=== PATIENT | female | born 2000 | race Caucasian/White ===

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

== ENCOUNTER 2020-01-02 11:51 | Observation (INO) | payer MEDICAID, SELFPAY ==
[2020-01-02 12:10] VITALS: BP 103/62; PULSE 85; RESP 18; TEMP 36.8
[2020-01-02 12:13] VITALS: BP 103/62; PULSE 85
[2020-01-02 12:52] LABS: ROM Plus Negative
== END 2020-01-02 13:05 | disposition home or self-care (01) ==
PROVIDERS: Admitting Provider Advanced Practice Midwife; Visit Provider Advanced Practice Midwife
DX: O60.02 Preterm labor without delivery, second trimester (principal); Z3A.24 24 weeks gestation of pregnancy
CPT/HCPCS: 84112; G0378

== ENCOUNTER 2020-01-11 20:43 | Observation (INO) | payer MEDICAID, SELFPAY ==
[2020-01-11 20:46] VITALS: BP 106/66; PULSE 100; RESP 17; TEMP 36.8
[2020-01-11] MEDS: Acetaminophen 500 MG TAB 1000 MG PO (20:59)
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
--- NOTE | 2020-01-12 08:49 | DSE_ITS ---
Date of service: 01/11/20 Time of Service: 22:00 DS: Diagnosis Discharge Diagnosis (1) Decreased movement: Status: Acute Asessment and Plan: Fetus was active. Lawanda took tylenol for headache with good effect. She requested to return home and she requested a note to be excused from work tomorrow and that was written. RTO for regular prnatal visit. movement was reviewed. Rest tomorrow was encouraged Discharge Plan Disposition Patient Disposition: HOME Condition: Stable Discharge Details Reason For Visit: ABDOMINAL TRAUMA Admit Date/Time: 01/11/20 20:43 Admit Provider: Luz Marina Fitzpatrick Attending Provider: Luz Marina Fitzpatrick Primary Care Provider: Unknown,Unknown Home Meds and New Rx's Prescriptions: No Action albuterol sulfate [ProAir HFA] 90 mcg/actuation HFA aerosol inhaler 2 puff Inhalation ONCE PRNRF: 0 fluoxetine 10 mg capsule 10 mg PO DAILY Qty: 30 RF: 1 PreTAB 29-1 mg tablet 1 tab PO DAILY Qty: 90 RF: 4 epinephrine [EpiPen 2-Sesar] 0.3 MG/0.3 ML auto-injector 0.3 mg IJ DIRECTED PRN (Reason: impending anaphylaxis) Qty: 1 RF: 0 Discharge Instructions Instructions: (GEN), Movement (GEN) Stand Alone Forms: Center Observation Activity:: rest encouraged Equipment/Supplies:: No Equipment Needed Diet:: As Tolerated Discharge Orders Discharge Orders: Discharge Order (Routine); Ordered 01/11/20 Ordered By: Luz Marina Fitzpatrick Discharge Data Discharge Date/Time-TO BE ENTERED AT DEPARTURE: 01/11/20 22:48 DS: Summary Status at Discharge Functional status at discharge: independent ambulation Overall status at discharge: patient is back to baseline Mental Status: mental status grossly normal Speech and Movement: speech and movement normal Mood: congruent mood Affect: normal affect Time Spent with Patient providing and/or coordinating discharge services: Less than 30 minutes Exam Psych Mental Status: mental status grossly normal Speech and Movement: speech and movement normal Mood: congruent mood Affect: normal affect DS: Data Vitals/I&O Vitals and I&O: Vital Signs Temperature 98.2 F 01/11/20 20:46 Pulse 100 H 01/11/20 20:46 Respiratory Rate 17 01/11/20 20:46 Blood Pressure 106/66 01/11/20 20:46 Blood Pressure Mean 79 01/11/20 20:46 Pain Level 5 01/11/20 20:46 [facility] Medical History (Updated 01/11/20 @ 21:34 by Luz Marina Fitzpatrick CNM) Abdominal pain Acute bronchiolitis due to respiratory syncytial virus (RSV) (03/24/12) ADHD (attention deficit hyperactivity disorder) Anaphylactic reaction 2017 - lip swelling, face swelling ER - allergy testing no trigger identified - has epi pen Body mass index, pediatric, 85th percentile to less than 95th percentile for age (03/29/14) Concern about STD in female without diagnosis Daytime sleepiness Depression Encounter for IUD removal Kyleena IUD inserted 06/14/2019. Removed 07/15/2019 at patient's request secondary to bleeding and stated desire to become . Patient declined alternative contraception. Encounter for smoking cessation counseling Exercise-induced asthma Family history of thyroid disease Lactose intolerance (10/25/15) Learning difficulty 504 plan Nasal congestion Patient desires 07/15/2019. Patient requested IUD to be removed. Rx for vitamins initiated. Smoker quit 10/04/19 URI (upper respiratory infection) Surgical History History of appendectomy [facility] 10/20/18 Family History Mother Essential hypertension Healthy adult Hypothyroid Father Healthy adult Asthma Other Personal history of malignant neoplasm paternal aunts-breast, maternal Asthma mat uncle, mat aunt, MGM Sister Asthma Social History Smoking/Tobacco Use Status: Current every day Tobacco Type: e-cigarettes Alcohol Intake: former Details: says she has stopped since she might be Drug use: Occasionally Substance use type: former substance user and marijuana Do you feel safe at home: Yes Do you feel safe in your relationship?: Yes Victim of physical abuse: No Victim of emotional abuse: No Victim of sexual abuse: No Female Reproductive History Menstrual Age of Menarche: 11 control method: none History History 1 Para 0 Hx # Term Pregnancies 0 Multiple births Hx # Pregnancies Ectopic pregnancies AB induced Hx Number of Living Children AB spontaneous
== END 2020-01-11 22:48 | disposition home or self-care (01) ==
LOC: OBS 20:46
PROVIDERS: Admitting Provider Advanced Practice Midwife; Visit Provider Advanced Practice Midwife
DX: Z04.3 Encounter for examination and observation following other accident (principal); O36.8120 Decreased fetal movements, second trimester, not applicable or unspecified; O26.892 Other specified pregnancy related conditions, second trimester; R51 Headache; Z3A.25 25 weeks gestation of pregnancy
CPT/HCPCS: 99217; 59025

== ENCOUNTER 2020-01-26 08:29 | Observation (INO) | payer MEDICAID, SELFPAY ==
[2020-01-26 08:34] VITALS: BP 106/62; PULSE 86; RESP 16; TEMP 36.4; O2SAT 99
--- NOTE | 2020-01-26 09:07 | W.ED.GENAD ---
Discharge Plan Disposition Patient Disposition: [facility] INPATIENT Condition: Stable Discharge Details Clinical Impression: Cervical strain, Contusion of right hip Primary Care Provider: Unknown,Unknown ED Provider: Kristofer Hartley Home Meds and New Rx's Prescriptions: Continued albuterol sulfate [ProAir HFA] 90 mcg/actuation HFA aerosol inhaler 2 puff Inhalation ONCE PRNRF: 0 fluoxetine 10 mg capsule 10 mg PO DAILY Qty: 30 RF: 1 PreTAB 29-1 mg tablet 1 tab PO DAILY Qty: 90 RF: 4 epinephrine [EpiPen 2-Sesar] 0.3 MG/0.3 ML auto-injector 0.3 mg IJ DIRECTED PRN (Reason: impending anaphylaxis) Qty: 1 RF: 0 Medical Decision Making 19-year-old female who has prestanding right hip pain causing her to fall and slip down stairs on her bottom once previously and again this morning. This morning she did not have a loss of consciousness. Subsidy has some mild to moderate neck pain. She has persistent right hip pain over days time. She is able to walk. No new vaginal discharge and no vaginal bleeding. She has been feeling the baby move. heart tones were unremarkable at triage. Case discussed with our radiologist, Dr. Mendenhall. He feels focal pelvic radiation represents at least a moderate risk to the fetus and would recommend withholding radiography unless absolutely necessary. I discussed this with the patient, she was given acetaminophen, referred for cervical spine x-ray. No evidence of fracture or malalignment. Use single crutch as needed use weight. We discussed that she does have a subtle pelvis fracture that weightbearing as tolerated would not be contraindicated. Case discussed with midwifery. Patient be discharged from ER to [facility] for further observation. HPI General Mode of arrival: ambulatory. Date/Time Provider Initiated Documentation: 01/26/20 08:31. Limitations to Documentation: no limitations. Information obtained by: patient. History of Present Illness 19 year old F presents to the emergency department with the chief complaint of Right hip pain, fall, now with neck pain, described as moderate, Quality is described as dull, and is localized to the neck. Patient reports no radiation. Patient started experiencing this minute(s) and it has been constant. No relieving factors improve symptom(s), No exacerbating factors reported . Patient notes no other symptoms. and other (No numbness or tingling, no weakness, no vaginal discharge or bleeding. Baby has been moving.). Patient did receive the following treatments prior to arrival, none Related Data Home Medications Medication Instructions Recorded Confirmed epinephrine [EpiPen 2-Sesar] 0.3 mg IJ DIRECTED PRN #1 10/14/17 01/02/20 auto.injct albuterol sulfate 90 mcg/actuation 2 puff INHALATION ONCE PRN gm 10/06/19 01/02/20 aerosol inhaler fluoxetine 10 mg capsule 10 mg PO DAILY #30 cap 10/06/19 01/02/20 vits,calcium no.78-iron 1 tab PO DAILY #90 tab 10/08/19 01/02/20 fumarate-folic acid 29 mg-1 mg tablet Previous Rx's Medication Instructions Recorded epinephrine [EpiPen 2-Sesar] 0.3 mg IJ DIRECTED PRN #1 10/14/17 auto.injct fluoxetine 10 mg capsule 10 mg PO DAILY #30 cap 10/06/19 vits,calcium no.78-iron 1 tab PO DAILY #90 tab 10/08/19 fumarate-folic acid 29 mg-1 mg tablet Allergies Allergy/AdvReac Type Severity Reaction Status Date / Time dog dander Allergy Severe Verified 12/30/19 15:05 house dust mite Allergy Severe Verified 12/30/19 15:05 General Stated Complaint: Trauma CLARKE: 3 Review of Systems Narrative: 6 systems reviewed and otherwise negative [facility] Medical History (Updated 01/26/20 @ 10:26 by Kristofer Hartley MD) Abdominal pain Acute bronchiolitis due to respiratory syncytial virus (RSV) (03/24/12) ADHD (attention deficit hyperactivity disorder) Anaphylactic reaction 2017 - lip swelling, face swelling ER - allergy testing no trigger identified - has epi pen Body mass index, pediatric, 85th percentile to less than 95th percentile for age (03/29/14) Concern about STD in female without diagnosis Daytime sleepiness Depression Encounter for IUD removal Kyleena IUD inserted 06/14/2019. Removed 07/15/2019 at patient's request secondary to bleeding and stated desire to become . Patient declined alternative contraception. Encounter for smoking cessation counseling Exercise-induced asthma Family history of thyroid disease Lactose intolerance (10/25/15) Learning difficulty 504 plan Nasal congestion Patient desires 07/15/2019. Patient requested IUD to be removed. Rx for vitamins initiated. Smoker quit 10/04/19 URI (upper respiratory infection) Surgical History History of appendectomy [facility] 10/20/18 Family History Mother Essential hypertension Healthy adult Hypothyroid Father Healthy adult Asthma Other Personal history of malignant neoplasm paternal aunts-breast, maternal Asthma mat uncle, mat aunt, MGM Sister Asthma Social History Smoking/Tobacco Use Status: Current every day Tobacco Type: e-cigarettes Alcohol Intake: former Details: says she has stopped since she might be Drug use: Occasionally Substance use type: former substance user and marijuana Do you feel safe at home: Yes Do you feel safe in your relationship?: Yes Victim of physical abuse: No Victim of emotional abuse: No Victim of sexual abuse: No Female Reproductive History Menstrual Age of Menarche: 11 control method: none History History 1 Para 0 Hx # Term Pregnancies 0 Multiple births Hx # Pregnancies Ectopic pregnancies AB induced Hx Number of Living Children AB spontaneous Exam Narrative Exam Narrative: GEN: awake, alert, oriented 3. Pleasant, well groomed, interactive. HEAD: Normocephalic, atraumatic ENT: Mucous membranes moist, oropharynx unremarkable, External ear exam unremarkable EYES: PERRL, EOMI NECK: Full ROM, no JEANIE, no menigismus. Tender posterior cervical, no step-off or deformity CHEST/RESP: Nontender, clear to auscultation bilateral, no wheeze/rhonchi/rales CARDIOVASCULAR: RRR, no murmur, rub radha. 2+ Rad pulse bilateral ABDOMEN: Soft, nontender, gravid. +Bowel sounds EXT: Full ROM, no edema, no rash. Right lateral hip and right anterior superior iliac spine tender to palpation. Motor is graded 5 out of 5. Neuro: Grossly normal neurologic exam, conversant, interactive. Psych: Speech fluent, thoughts congruent, affect normal Course Vital Signs Vital signs: Vital Signs Temperature 36.4 C L 01/26/20 08:34 Pulse 86 01/26/20 08:34 Respiratory Rate 16 01/26/20 08:34 Blood Pressure 106/62 01/26/20 08:34 Pulse Oximetry 99 01/26/20 08:34 Temperature 36.4 C L 01/26/20 08:34 Temperature Source Tympanic 01/26/20 08:34 Pulse 86 01/26/20 08:34 Respiratory Rate 16 01/26/20 08:34 Respiratory Effort Non-Labored 01/26/20 08:39 Blood Pressure 106/62 01/26/20 08:34 Blood Pressure Position Sitting 01/26/20 08:34 Pulse Oximetry 99 01/26/20 08:34 Oxygen Delivery Method Room Air 01/26/20 08:34 Oxygen Flow Rate 0 01/26/20 08:34 Pain Level 7 01/26/20 08:34
[2020-01-26] MEDS: Acetaminophen 325 MG TAB 650 MG PO (09:24)
--- NOTE | 2020-01-26 09:52 | DI.RAD_ITS ---
EXAM: XR CERVICAL SP MAHMOOD TRAUMA 2-3V CLINICAL HISTORY: Fall, Cspine pain, 27wks preg. TECHNIQUE: 2D digital imaging was performed. COMPARISON: No exams were available for comparison FINDINGS: BONES: No fracture or destructive lesion. Vertebral bodies are unremarkable. DISKS: Intervertebral disc spaces are maintained. ALIGNMENT: Cervical spinal alignment is within normal limits. The odontoid and atlantoaxial articulat ions are normal. SOFT TISSUE: Normal. The lung apices are clear. IMPRESSION: Unremarkable radiographs of the cervical spine. DATA REPOSITORY: RADIATION DOSE DELIVERED:
[2020-01-26 09:55] LABS: Bilirubin Negative (Negative); Blood Negative (Negative); Clarity Clear (Clear); Glucose Negative (Negative); Ketones Negative (Negative); Leukocyte Esterase Negative (Negative); Nitrite Negative (Negative); Urobilinogen 0.2 EU/dL (Up TO 0.2)
[2020-01-26 10:00] VITALS: BP 102/72; PULSE 102; RESP 18; TEMP 36.2; O2SAT 96
[2020-01-26 10:32] VITALS: BP 101/74; PULSE 90; RESP 16; TEMP 36.6; O2SAT 97
--- NOTE | 2020-01-26 11:25 | W.PM.HP.N ---
Date of service: 01/26/20 Time of Service: 11:25 Assessment and Plan Assessment and plan (1) Fall (on) (from) other stairs and steps, initial encounter: Status: Acute Assessment and plan: Admitted to observation and placed on external and toco monitoring. FHTs 130s. Reactive NST on admission. Average variablility and no decellerations. Occasional mild uterine cramping noted. I recommended 4 hours of monitoring due to reported abdominal cramping. I also discussed referral to PT after discharge which Lawanda is agreeable to this. (2) 27 weeks gestation of : Status: Acute History of Present Illness History of Present Illness Chief Complaint: Lawanda fell down stairs at 27 weeks gestation Narrative: Lawanda fell down wooden stairs in her home wearing socks. She is 27 weeks gestation. . She reports that her right hip has been giving out on her occasionally causing her to fall. She fell a few days ago, also on the stairs and her hip has been hurting since then. She drove herself to the hospital and was evaluated in the ED and had a neg neck x-ray. She was able to walk in the ED and was given crutches upon discharge. A hip x-ray was not indicated based on her symptoms. She requests a note for work as she started a new job at [employer] today. Lawanda reports uterine cramping which began occurring after the fall. FHTs pos. in the ED and report received by Dr. Hartley in the ED. [facility] Medical History (Updated 01/26/20 @ 11:34 by Luz Marina Fitzpatrick CNM) Abdominal pain Acute bronchiolitis due to respiratory syncytial virus (RSV) (03/24/12) ADHD (attention deficit hyperactivity disorder) Anaphylactic reaction 2017 - lip swelling, face swelling ER - allergy testing no trigger identified - has epi pen Body mass index, pediatric, 85th percentile to less than 95th percentile for age (03/29/14) Concern about STD in female without diagnosis Daytime sleepiness Depression Encounter for IUD removal Kyleena IUD inserted 06/14/2019. Removed 07/15/2019 at patient's request secondary to bleeding and stated desire to become . Patient declined alternative contraception. Encounter for smoking cessation counseling Exercise-induced asthma Family history of thyroid disease Lactose intolerance (10/25/15) Learning difficulty 504 plan Nasal congestion Patient desires 07/15/2019. Patient requested IUD to be removed. Rx for vitamins initiated. Smoker quit 10/04/19 URI (upper respiratory infection) Surgical History History of appendectomy [facility] 10/20/18 Family History Mother Essential hypertension Healthy adult Hypothyroid Father Healthy adult Asthma Other Personal history of malignant neoplasm paternal aunts-breast, maternal Asthma mat uncle, mat aunt, MGM Sister Asthma Social History Smoking/Tobacco Use Status: Current every day Tobacco Type: e-cigarettes Alcohol Intake: former Details: says she has stopped since she might be Drug use: Occasionally Substance use type: former substance user and marijuana Do you feel safe at home: Yes Do you feel safe in your relationship?: Yes Victim of physical abuse: No Victim of emotional abuse: No Victim of sexual abuse: No Female Reproductive History Menstrual Age of Menarche: 11 control method: none History History 1 Para 0 Hx # Term Pregnancies 0 Multiple births Hx # Pregnancies Ectopic pregnancies AB induced Hx Number of Living Children AB spontaneous Meds Home Medications and Allergies Home Medications Medication Instructions Recorded Confirmed Type epinephrine [EpiPen 2-Sesar] 0.3 mg IJ DIRECTED PRN #1 10/14/17 01/02/20 Rx auto.injct albuterol sulfate 90 mcg/actuation 2 puff INHALATION ONCE PRN gm 10/06/19 01/02/20 History aerosol inhaler fluoxetine 10 mg capsule 10 mg PO DAILY #30 cap 10/06/19 01/02/20 Rx vits,calcium no.78-iron 1 tab PO DAILY #90 tab 10/08/19 01/02/20 Rx fumarate-folic acid 29 mg-1 mg tablet Allergies Allergy/AdvReac Type Severity Reaction Status Date / Time dog dander Allergy Severe Verified 12/30/19 15:05 house dust mite Allergy Severe Verified 12/30/19 15:05 Exam Const General: comfortable and no acute distress Nutritional Appearance: average body habitus Orientation: alert, awake and oriented x3 Resp Effort & Inspection: normal respiratory effort Cardio Rate: regular rate Rhythm: regular rhythm Skin General skin exam: no rashes or lesions noted Psych Appearance: grossly normal Mental Status: mental status grossly normal Speech and Movement: speech and movement normal Mood: congruent mood Affect: normal affect Attitude: cooperative Results Labs Labs: Laboratory Results - last 24 hr 01/26/20 08:57 Urine Color Yellow Urine Clarity Clear Urine pH 7.0 Ur Specific [place] 1.020 Urine Protein Negative Urine Ketones Negative Urine Blood Negative Urine Nitrite Negative Urine Bilirubin Negative Urine Urobilinogen 0.2 Ur Leukocyte Esterase Negative Urine Glucose Negative Last Vital Signs Temp 97.9 F 01/26/20 10:32 Pulse 90 01/26/20 10:32 Resp 16 01/26/20 10:32 BP 101/74 01/26/20 10:32 Pulse Ox 97 01/26/20 10:32 COVID-19 Screening Have you,or household,traveled outside [place] in last 14 days?: No Had IN PERSON contact w/suspected or confirmed C-19 person: No
[2020-01-26 12:26] VITALS: BP 107/63; PULSE 91
--- NOTE | 2020-01-26 12:30 | W.OBNST ---
Date of service: 01/26/20 Time of Service: 12:30 NST Evaluation Reason for NST Reasons for Nonstress Test: OTHER, SEE COMMENT Gestational Age Gestational Age in Weeks and Days: 24 Weeks and 0Days
[2020-01-26 12:33] VITALS: BP 107/63; PULSE 91; TEMP 36.7
--- NOTE | 2020-01-26 12:47 | W.OBNST ---
Date of service: 01/26/20 Time of Service: 12:47 NST Evaluation Reason for NST Reasons for Nonstress Test: OTHER, SEE COMMENT Reason for NST Other: Pt fell down her stairs, seen in ER, hector rush on [facility] Gestational Age Gestational Age in Weeks and Days: 27 Weeks and 3Days Test and Monitor Explained Test/Monitor Explained: Test Explained, Monitor Explained and Patient Verbalized Understanding Vital Signs Blood Pressure: 107/63 Pulse: 91 Temperature: 98.1 F Urine Results Urine Protein: Negative Urine Ketones: Negative Urine Glucose: Negative Urine Blood: Negative NST Information Date on Monitor: 01/26/20 Time on Monitor: 10:52 Date off Monitor: 01/26/20 Time off Monitor: 12:37 Total Time on Monitor: 105 NST Interventions: PO Hydration and Meal Given Contraction Frequency: none NST Evaluation Patient States Movement: Present FHR Baseline: 130 Variability: Moderate 6-25 bpm Accelerations: 10x10 Decelerations: None NST Results: Reactive Note NST Note Note: admitted to observation x 4 hours after fall. see h and p NST Reviewed and Verified by: meaghan
[2020-01-26 12:48] VITALS: BP 107/63; PULSE 91; TEMP 36.7
--- NOTE | 2020-01-26 15:08 | DSE_ITS ---
Date of service: 01/26/20 Time of Service: 15:08 DS: Diagnosis Discharge Diagnosis (1) Fall (on) (from) other stairs and steps, initial encounter: Status: Acute Asessment and Plan: Lawanda rested x 4 hours and had lunch. She reported cramping when she arrived but no evidence of labor. Reactive NST obtained. Note written to avoid work x 2 days. Referred to PT, Call if symptoms persist. Rest at home x 2 days. Use crutches as needed. (2) 27 weeks gestation of : Status: Acute Discharge Plan Disposition Patient Disposition: HOME Condition: Stable Discharge Details Reason For Visit: FALL DOWN STAIRS Admit Date/Time: 01/26/20 11:22 Admit Provider: Luz Marina Fitzpatrick Attending Provider: Luz Marina Fitzpatrick Primary Care Provider: Unknown,Unknown Home Meds and New Rx's Prescriptions: Continued albuterol sulfate [ProAir HFA] 90 mcg/actuation HFA aerosol inhaler 2 puff Inhalation ONCE PRNRF: 0 fluoxetine 10 mg capsule 10 mg PO DAILY Qty: 30 RF: 1 PreTAB 29-1 mg tablet 1 tab PO DAILY Qty: 90 RF: 4 epinephrine [EpiPen 2-Sesar] 0.3 MG/0.3 ML auto-injector 0.3 mg IJ DIRECTED PRN (Reason: impending anaphylaxis) Qty: 1 RF: 0 Discharge Instructions Instructions: Cervical Strain (ED), Contusion in Adults (ED) Additional Instructions: Please go directly to [facility] for further evaluation. May continue Tylenol as needed for pain. Ice to the area of discomfort 20 minutes at a time to reduce pain. May use single crutch as needed to ease weight on your right hip Return to the emergency department for any acute concerns. Activity:: Activity as Tolerated Equipment/Supplies:: Crutches Diet:: As Tolerated Discharge Orders Discharge Orders: Discharge Order (Routine); Ordered 01/26/20 Ordered By: Luz Marina Fitzpatrick DS: Summary Status at Discharge Functional status at discharge: independent ambulation Overall status at discharge: patient is back to baseline Mental Status: mental status grossly normal Speech and Movement: speech and movement normal Mood: congruent mood Affect: normal affect Time Spent with Patient providing and/or coordinating discharge services: Less than 30 minutes Exam Psych Mental Status: mental status grossly normal Speech and Movement: speech and movement normal Mood: congruent mood Affect: normal affect DS: Data Vitals/I&O Vitals and I&O: Vital Signs Temperature 97.9 F 01/26/20 10:32 Temperature Source Temporal Artery Scan 01/26/20 10:32 Pulse 91 H 01/26/20 12:26 Respiratory Rate 16 01/26/20 10:32 Respiratory Effort Non-Labored 01/26/20 09:34 Respiratory Depth Normal 01/26/20 09:34 Respiratory Pattern Normal 01/26/20 09:34 Blood Pressure 107/63 01/26/20 12:26 Blood Pressure Position Sitting 01/26/20 08:34 Pulse Oximetry 97 01/26/20 10:32 Oxygen Delivery Method Room Air 01/26/20 10:32 Oxygen Flow Rate 0 01/26/20 10:32 Pain Level 7 01/26/20 08:34 Intake & Output 01/25/20 01/26/20 01/26/20 23:59 11:59 23:59 Weight 147 lb Data Completed and Pending Labs on day of discharge: Labs from last 24 hours 01/26/20 08:57 Urine Color Yellow Urine Clarity Clear Urine pH 7.0 Ur Specific [place] 1.020 Urine Protein Negative Urine Ketones Negative Urine Blood Negative Urine Nitrite Negative Urine Bilirubin Negative Urine Urobilinogen 0.2 Ur Leukocyte Esterase Negative Urine Glucose Negative [facility] Medical History (Updated 01/26/20 @ 12:13 by Luz Marina Fitzpatrick CNM) Abdominal pain Acute bronchiolitis due to respiratory syncytial virus (RSV) (03/24/12) ADHD (attention deficit hyperactivity disorder) Anaphylactic reaction 2017 - lip swelling, face swelling ER - allergy testing no trigger identified - has epi pen Body mass index, pediatric, 85th percentile to less than 95th percentile for age (03/29/14) Concern about STD in female without diagnosis Daytime sleepiness Depression Encounter for IUD removal Kyleena IUD inserted 06/14/2019. Removed 07/15/2019 at patient's request secondary to bleeding and stated desire to become . Patient declined alternative contraception. Encounter for smoking cessation counseling Exercise-induced asthma Family history of thyroid disease Lactose intolerance (10/25/15) Learning difficulty 504 plan Nasal congestion Patient desires 07/15/2019. Patient requested IUD to be removed. Rx for vitamins initiated. Smoker quit 10/04/19 URI (upper respiratory infection) Surgical History History of appendectomy [facility] 10/20/18 Family History Mother Essential hypertension Healthy adult Hypothyroid Father Healthy adult Asthma Other Personal history of malignant neoplasm paternal aunts-breast, maternal Asthma mat uncle, mat aunt, MGM Sister Asthma Social History Smoking/Tobacco Use Status: Current every day Tobacco Type: e-cigarettes Alcohol Intake: former Details: says she has stopped since she might be Drug use: Occasionally Substance use type: former substance user and marijuana Do you feel safe at home: Yes Do you feel safe in your relationship?: Yes Victim of physical abuse: No Victim of emotional abuse: No Victim of sexual abuse: No Female Reproductive History Menstrual Age of Menarche: 11 control method: none History History 1 Para 0 Hx # Term Pregnancies 0 Multiple births Hx # Pregnancies Ectopic pregnancies AB induced Hx Number of Living Children AB spontaneous
== END 2020-01-26 15:18 | disposition home or self-care (01) ==
LOC: ER 11:42 → OBS 12:12
PROVIDERS: Admitting Provider Advanced Practice Midwife; Emergency Provider Emergency Medicine; Visit Provider Advanced Practice Midwife
DX: O9A.212 Injury, poisoning and certain other consequences of external causes complicating pregnancy, second trimester (principal); S70.01XA Contusion of right hip, initial encounter; S16.1XXA Strain of muscle, fascia and tendon at neck level, initial encounter; M25.551 Pain in right hip; Z3A.27 27 weeks gestation of pregnancy; W10.8XXA Fall (on) (from) other stairs and steps, initial encounter
CPT/HCPCS: 59025; 99223; 99238; 99285; 72040; 81003; 99284; E0114; G0378; L0172

== ENCOUNTER 2020-01-28 04:43 | Outpatient (CLI) | payer MEDICAID, SELFPAY ==
--- NOTE | 2020-01-28 07:14 | DI.US_ITS ---
EXAM: US OB F/U FACIAL/LVOT/RVOT CLINICAL HISTORY: F/U LOW LYING PLACENTA,Z34.90,MODIFIED PER TECH. TECHNIQUE: Transabdominal obstetrical ultrasound performed. COMPARISON: US US OB 2-3 TRIMESTER from 12/01/2019 FINDINGS: Transabdominal obstetrical ultrasound performed. FINDINGS: Number of fetuses: One. position: Cephalic Placental location: Anterior. There is no evidence of previa. The placental tip lies greater than 6 cm from the internal os. Heart Rate: 137BPM Amniotic fluid index: Visually, amount of fluid is within normal limits. IMPRESSION: 1. Single live intrauterine gestation as above. 2. No evidence of placenta previa. The placental tip lies greater than 6 cm from the internal os. 3. Amniotic fluid index: Visually within normal limits. DATA REPOSITORY:
== END 2020-01-28 05:03 ==
PROVIDERS: Visit Provider Advanced Practice Midwife
DX: O44.43 Low lying placenta NOS or without hemorrhage, third trimester (principal)
CPT/HCPCS: 76815

== ENCOUNTER 2020-01-28 09:54 | Outpatient (CLI) | payer MEDICAID, SELFPAY ==
[2020-01-28 11:26] LABS: HCT 35.4 % (36.0-46.0); HGB 11.6 g/dL (11.2-15.7); MCH 30.9 pg (27.0-33.0); MCHC 32.8 % (32.0-36.0); MCV 94.4 fL (80-95); MPV 9.9 fL (8.0-11.0); Platelet Count 198 10^3/uL (130-400); RBC 3.75 10^6/uL (3.93-5.22); RDW 12.2 % (11.7-14.6); RDW-SD 42.1 fL; WBC 9.97 10^3/uL (4.4-10.8)
[2020-01-28 11:35] LABS: Glucose,1 Hr (Glucola) 128 mg/dL (80-140)
== END 2020-01-28 10:14 ==
PROVIDERS: Visit Provider Advanced Practice Midwife
DX: Z34.93 Encounter for supervision of normal pregnancy, unspecified, third trimester (principal)
CPT/HCPCS: 36415; 82950; 85027

== ENCOUNTER 2020-01-28 11:47 | Outpatient (REF) | payer MEDICAID, SELFPAY ==
[2020-01-31 15:43] LABS: Chlamydia Result Negative (Negative); GC Result Negative (Negative)
== END 2020-01-28 12:07 ==
LOC: LBN 11:47
PROVIDERS: Visit Provider Advanced Practice Midwife
DX: Z11.3 Encounter for screening for infections with a predominantly sexual mode of transmission (principal)
CPT/HCPCS: 87491; 87591

== ENCOUNTER 2020-02-10 12:02 | Emergency (ER) | payer MEDICAID, SELFPAY ==
[2020-02-10 11:59] VITALS: BP 117/69; PULSE 126; RESP 18; TEMP 36.9; O2SAT 98
--- NOTE | 2020-02-10 12:00 | RT.EKG_ITS ---
APPROVED REPORT Exam: Resting ECG Patient Location: E HR:117 bpm ECG Measurements Heart Rate 117 AXIS AK 118 P 70 QRSd 71 QRS 31 QT 318 T 15 QTc 443 Conclusion Sinus tachycardia...rate> 99 Ventricular premature complex...V complex w/ short R-R interval. No STEMI. I have reviewed and interpreted ECG and agree with software generated interpretation.
--- NOTE | 2020-02-10 12:27 | W.ED.GENAD ---
Discharge Plan Disposition Patient Disposition: HOME Condition: Stable Discharge Details Clinical Impression: Dyspnea, Chest wall pain, Second trimester Primary Care Provider: Unknown,Unknown ED Provider: Asuncion Car Home Meds and New Rx's Prescriptions: Continued albuterol sulfate [ProAir HFA] 90 mcg/actuation HFA aerosol inhaler 2 puff Inhalation ONCE PRNRF: 0 fluoxetine 10 mg capsule 10 mg PO DAILY Qty: 30 RF: 1 PreTAB 29-1 mg tablet 1 tab PO DAILY Qty: 90 RF: 4 ondansetron HCl 8 mg tablet 8 mg PO Q8H Qty: 20 RF: 3 epinephrine [EpiPen 2-Sesar] 0.3 MG/0.3 ML auto-injector 0.3 mg IJ DIRECTED PRN (Reason: impending anaphylaxis) Qty: 1 RF: 0 Discharge Instructions Instructions: Dyspnea (ED), Chest Wall Pain (ED) Additional Instructions: Drink plenty of fluids and get plenty of rest. Take Tylenol as needed and directed for pain. You can also continue to use [id number] Lidoderm patches as needed and directed for pain. Call [facility] on Friday morning to schedule a follow-up appointment for reevaluation. Return immediately to the emergency department if you develop any worsening or new concerning symptoms. Discharge Data Discharge Date/Time-TO BE ENTERED AT DEPARTURE: 02/10/20 16:09 Discharge Physician: Asuncion Car Medical Decision Making 1200 -- 19-year-old female with a history of asthma and depression who is currently 29 weeks who presents for pleuritic chest pain or shortness of breath with rash that started after tetanus vaccine yesterday at [facility]. EKG notes a rate of 117, sinus with no acute ST changes. She has tenderness to palpation of her left lateral chest with normal lung sounds. Main concern would be PE. Also consider pneumonia, chest wall pain, tetanus reaction. Discussed with OB on-call Dr. Sanchez who agrees with plan for CT chest. We will also give a dose of IV Tylenol, Lidoderm patch and fluids and reassess. 1330 --labs reviewed. Hemoglobin 10.7 which may be expected in . Troponin negative. 1420 -- delay it pt going to CT due to critical patient in ED. patient reassessed and she feels much better. She is texting on phone and appears comfortable. Normal heart rate and oxygen saturation on room air. 1530 --CT negative for acute findings. Patient reassessed and she feels much better. Dr. Sanchez aware of findings. Patient feels good to go home. Advised to follow up with the [employer] for reevaluation. Usual and customary return precautions given prior to discharge. Medical Records Medical records reviewed: Yes I reviewed the patient's medical records. Imaging Data Radiologic Study: Radiologist's impression: CT CHEST PE CTA CLINICAL HISTORY: chest pain, sob, r/o PE. TECHNIQUE: Imaging Protocol: Axial CT angiography was performed with multi-slice acquisition and multi-planar and/or 3D reconstructions. CONTRAST MATERIAL: Intravenous: Omnipaque 350 Contrast volume:structured data in ml COMPARISON: CT CT ABDOMEN PELVIS W from 06/23/2019 FINDINGS: CT angiography of the chest was performed with intravenous infusion of 63 cc of Omnipaque 350. The lungs are clear. No pleural effusion. Tracheobronchial tree appears intact. Increased pulmonary vascular flow and mild cardiomegaly consistent with patient's gravid status. No evidence of pulmonary embolic disease. Thoracic aorta is of normal diameter, no thoracic aortic aneurysm or dissection, major branch vessels appear intact. No mediastinal or hilar adenopathy. Images obtained through the upper abdomen show unremarkable appearance of the visualized portions of the liver, spleen, pancreas, adrenals, and kidneys. IMPRESSION: Negative CT angiogram of the chest. No evidence of pulmonary embolic disease. Lab Data Lab results reviewed: Yes I reviewed the patient's lab results. Labs: Laboratory Tests Range/Units 02/10/20 02/10/20 02/10/20 13:05 13:05 13:05 WBC (4.4-10.8) 10^3/uL 9.19 RBC (3.93-5.22) 10^6/uL 3.48 L Hgb (11.2-15.7) g/dL 10.7 L Hct (36.0-46.0) % 32.1 L MCV (80-95) fL 92.2 MCH (27.0-33.0) pg 30.7 MCHC (32.0-36.0) % 33.3 RDW (11.7-14.6) % 12.0 Plt Count (130-400) 10^3/uL 196 MPV (8.0-11.0) fL 9.7 Immature Gran % 0.7 Neutrophils % 74.3 Lymphocytes % 16.5 Monocytes % 7.5 Eosinophils % 0.8 Basophils % 0.2 Nucleated RBC % % 0 Absolute Neutrophils (1.2-6.7) 10^3/uL 6.83 H Absolute Lymphocytes (1.2-3.4) 10^3/uL 1.52 Absolute Monocytes (0.1-0.8) 10^3/uL 0.69 Absolute Eosinophils (0.0-0.7) 10^3/uL 0.07 Absolute Basophils (0.0-0.2) 10^3/uL 0.02 PT (9.3-11.0) sec 9.3 INR (0.9-1.1) 0.9 APTT (21.0-31.4) sec 21.0 Sodium (136-145) mmol/L 135 L Potassium (3.5-5.1) mmol/L 3.7 Chloride (98-107) mmol/L 104 Carbon Dioxide (21.0-32.0) mmol/L 22.7 Anion Gap (3-11) mmol/L 8.3 BUN (7-18) mg/dL 4 L Creatinine (0.55-1.02) mg/dL 0.57 Estimated GFR/1.73 m2 (mL/min/1.73m2) >= 60.00 Glucose (74-106) mg/dL 96 Calcium (8.5-10.1) mg/dL 8.1 L Magnesium (1.8-2.4) mg/dL 1.8 Total Bilirubin (0.2-1.0) mg/dL 0.5 AST (15-37) U/L 13 L ALT (14-59) U/L 16 Alkaline Phosphatase (46-116) U/L 85 Troponin I (<0.06) ng/mL < 0.05 Total Protein (6.4-8.2) g/dL 5.8 L Albumin (3.4-5.0) g/dL 2.5 L ECG Data Attestation: I personally reviewed and interpreted this ECG (s) as follows: Interpretation: rate of 117, sinus, PVCs, no acute ST elevation or depression, [place] 118, QRS 71, QTc 443. HPI General Mode of arrival: ambulatory. Date/Time Provider Initiated Documentation: 02/10/20 12:17. Limitations to Documentation: no limitations. Information obtained by: patient. HPI Narrative: Patient is a 19-year-old female G1, P0 at approximately 29 weeks who presents for rash and difficulty breathing that started since receiving a tetanus booster yesterday. Patient states she developed a rash to her left shoulder yesterday which has since improved. She states she woke this morning with difficulty breathing and anterior chest pain. She states she feels that her heart is beating fast. She did not take any medication for the symptoms today. She is currently a smoker but denies any alcohol or drug use. She denies any fever, cough, sore throat, nausea, vomiting, abdominal pain or diarrhea. She denies any recent travel, recent known sick contact. Related Data Home Medications Medication Instructions Recorded Confirmed epinephrine [EpiPen 2-Sesar] 0.3 mg IJ DIRECTED PRN #1 10/14/17 02/10/20 auto.injct albuterol sulfate 90 mcg/actuation 2 puff INHALATION ONCE PRN gm 10/06/19 02/10/20 aerosol inhaler fluoxetine 10 mg capsule 10 mg PO DAILY #30 cap 10/06/19 02/09/20 vits,calcium no.78-iron 1 tab PO DAILY #90 tab 10/08/19 02/09/20 fumarate-folic acid 29 mg-1 mg tablet ondansetron HCl 8 mg tablet 8 mg PO Q8H #20 tab 02/09/20 02/10/20 Previous Rx's Medication Instructions Recorded epinephrine [EpiPen 2-Sesar] 0.3 mg IJ DIRECTED PRN #1 10/14/17 auto.injct fluoxetine 10 mg capsule 10 mg PO DAILY #30 cap 10/06/19 vits,calcium no.78-iron 1 tab PO DAILY #90 tab 10/08/19 fumarate-folic acid 29 mg-1 mg tablet ondansetron HCl 8 mg tablet 8 mg PO Q8H #20 tab 02/09/20 Allergies Allergy/AdvReac Type Severity Reaction Status Date / Time dog dander Allergy Severe Verified 02/14/20 08:26 house dust mite Allergy Severe Verified 02/14/20 08:26 Pertussis Vaccines AdvReac Intermediate hives/SOB Unverified 02/14/20 08:26 tetanus and diphtheria AdvReac Intermediate hives/SOB Unverified 02/14/20 08:26 toxoids General Stated Complaint: Allergic CLARKE: 3 Review of Systems All systems reviewed & are unremarkable except as noted in HPI and below Constitutional Constitutional: Reports as per HPI, Denies chills and Denies fever(s) Eyes Eyes: Denies blurry vision ENT Ears, Nose, Mouth, and Throat: Denies dizziness, Denies sore throat and Denies throat swelling Cardiovascular Cardiovascular: Reports chest pain and Reports dyspnea Respiratory Respiratory: Reports cough and Reports dyspnea Gastrointestinal Gastrointestinal: Denies abdominal pain, Denies diarrhea and Denies vomiting Genitourinary Genitourinary: Denies hematuria and Denies dysuria Musculoskeletal Musculoskeletal: Denies back pain and Denies numbness Integumentary/Breasts Skin/Breast: Denies lesions and Reports rash Neurologic Neurologic: Denies dizziness, Denies localized weakness and Denies numbness Allergic/Immunologic Allergic/Immunologic: Denies throat swelling [facility] Medical History (Updated 02/10/20 @ 16:01 by Asuncion Car DO) Abdominal pain Acute bronchiolitis due to respiratory syncytial virus (RSV) (03/24/12) ADHD (attention deficit hyperactivity disorder) Anaphylactic reaction 2018 - lip swelling, face swelling ER - allergy testing no trigger identified - has epi pen Body mass index, pediatric, 85th percentile to less than 95th percentile for age (03/29/14) Concern about STD in female without diagnosis Daytime sleepiness Depression Encounter for IUD removal Kyleena IUD inserted 06/14/2019. Removed 07/15/2019 at patient's request secondary to bleeding and stated desire to become . Patient declined alternative contraception. Encounter for smoking cessation counseling Exercise-induced asthma Family history of thyroid disease Lactose intolerance (10/25/15) Learning difficulty 504 plan Nasal congestion Patient desires 07/15/2019. Patient requested IUD to be removed. Rx for vitamins initiated. Smoker quit 10/04/19 URI (upper respiratory infection) Surgical History History of appendectomy [facility] 10/20/18 Family History Mother Essential hypertension Healthy adult Hypothyroid Father Healthy adult Asthma Other Personal history of malignant neoplasm paternal aunts-breast, maternal Asthma mat uncle, mat aunt, MGM Sister Asthma Social History Smoking/Tobacco Use Status: Current every day Tobacco Type: e-cigarettes Smoking risk assessment performed?: Yes Alcohol Intake: former Details: says she has stopped since she might be Drug use: Current Sobriety Substance use type: former substance user and marijuana Do you feel safe at home: Yes Do you feel safe in your relationship?: Yes Victim of physical abuse: No Victim of emotional abuse: No Victim of sexual abuse: No Female Reproductive History Menstrual Age of Menarche: 11 control method: none History History 1 Para 0 Hx # Term Pregnancies 0 Multiple births 0 Hx # Pregnancies 0 Ectopic pregnancies 0 AB induced 0 Hx Number of Living Children 0 AB spontaneous 0 Exam Const General: cooperative and healthy appearing Orientation: alert and awake HENMT Head: normal to inspection Ears: hearing grossly normal bilaterally and external ears normal General nose exam: external nose normal Face and sinus: normal facial exam Mouth: oral mucosae normal Teeth and gingiva: dentition normal Throat: posterior oropharynx normal Eyes General: appearance normal, both eyes and all related structures Eyelids: eyelids normal Pupils: PERRL EOM: EOM intact bilaterally Neck Neck: normal visual inspection Lymphatic: no lymphadenopathy noted Chest Chest: normal inspection of the chest Resp Effort & Inspection: normal respiratory effort and able to speak in complete sentences Auscultation: clear to auscultation bilaterally Cardio Rate: tachycardic Rhythm: regular rhythm GI Inspection: other (gravid uterus) Palpation: soft, not firm, no guarding, no hepatosplenomegaly, no masses and nontender Auscultation: hypoactive bowel sounds Back/Spine/Pelvis Back: no CVA tenderness Skin General skin exam: no rashes or lesions noted Neuro General: patient alert and patient awake Cognition: normal cognition Speech: speech normal Gait: normal gait Motor: muscle tone normal throughout Sensory Exam: no sensory deficits noted Extrem General: normal to inspection, full ROM and capillary refill normal Psych Appearance: grossly normal Mental Status: mental status grossly normal Speech and Movement: speech and movement normal Affect: normal affect Thought Process: normal Course Vital Signs Vital signs: Vital Signs Temperature 98.4 F 02/10/20 11:59 Pulse 126 H 02/10/20 11:59 Respiratory Rate 18 02/10/20 11:59 Blood Pressure 117/69 02/10/20 11:59 Pulse Oximetry 98 02/10/20 11:59 Temperature 98.4 F 02/10/20 11:59 Temperature Source Temporal Artery Scan 02/10/20 11:59 Pulse 126 H 02/10/20 11:59 Respiratory Rate 18 02/10/20 11:59 Respiratory Effort 02/10/20 12:12 Blood Pressure 117/69 02/10/20 11:59 Blood Pressure Position Sitting 02/10/20 11:59 Pulse Oximetry 98 02/10/20 11:59 Oxygen Delivery Method Room Air 02/10/20 11:59 Oxygen Flow Rate 0 02/10/20 11:59 Pain Level 8 02/10/20 11:59
--- NOTE | 2020-02-10 12:45 | DI.CT_ITS ---
EXAM: CT CHEST PE CTA CLINICAL HISTORY: chest pain, sob, r/o PE. TECHNIQUE: Imaging Protocol: Axial CT angiography was performed with multi-slice acquisition and mu lti-planar and/or 3D reconstructions. CONTRAST MATERIAL: Intravenous: Omnipaque 350 Contrast volume:structured data in ml COMPARISON: CT CT ABDOMEN PELVIS W from 06/23/2019 FINDINGS: CT angiography of the chest was performed with intravenous infusion of 63 cc of Omnipaque 350. The lungs are clear. No pleural effusion. Tracheobronchial tree appears intact. Increased pulmonary vascular flow and mild cardiomegaly consistent with patient's gravid status. No evidence of pulmonary embolic disease. Thoracic aorta is of normal diameter, no thoracic aortic an eurysm or dissection, major branch vessels appear intact. No mediastinal or hilar adenopathy. Images obtained through the upper abdomen show unremarkable appearance of the visualized portions of the liver, spleen, pancreas, adrenals, and kidneys. IMPRESSION: Negative CT angiogram of the chest. No evidence of pulmonary embolic disease. RADIATION DOSE DELIVERED: 310.83mGy.cm Total DLP 310.83mGy.cm Total DLP DATA REPOSITORY: All CT scans at this facility are submitted to the National Radiology Data Registry (NRDR) Dose Index Registry (DIR) with the [employer] (ACR). RADIATION OPTIMIZATION: All CT scans at this facility use at least one of these dose optimization te chniques: automated exposure control; mA and/or kV adjustment per patient size (includes targeted exa ms where dose is matched to clinical indication); or iterative reconstruction.
[2020-02-10 13:12] LABS: Abs Immature Grans 0.06 10^3/uL (0.0-0.06); Absolute Basophil Count 0.02 10^3/uL (0.0-0.2); Absolute Eosinophil Count 0.07 10^3/uL (0.0-0.7); Absolute Lymphocyte Count 1.52 10^3/uL (1.2-3.4); Absolute Monocyte Count 0.69 10^3/uL (0.1-0.8); Absolute Neutrophil Count 6.83 10^3/uL (1.2-6.7); Basophils % 0.2; Eosinophils % 0.8; HCT 32.1 % (36.0-46.0); HGB 10.7 g/dL (11.2-15.7); Immature Grans % 0.7; Lymphocytes % 16.5; MCH 30.7 pg (27.0-33.0); MCHC 33.3 % (32.0-36.0); MCV 92.2 fL (80-95); MPV 9.7 fL (8.0-11.0); Monocytes % 7.5; Neutrophils % 74.3; Nucleated RBC 0 %; Platelet Count 196 10^3/uL (130-400); RBC 3.48 10^6/uL (3.93-5.22); RDW-SD 40.3 fL; WBC 9.19 10^3/uL (4.4-10.8)
[2020-02-10] MEDS: Lidocaine 5% Patch 1 PATCH TP (13:23)
[2020-02-10] MEDS: ACETAMINOPHEN 1,000 MG/100 ML BTL 400 MG IVPB (13:24)
[2020-02-10] MEDS: Normal Saline 1,000 ML 1000 ML IV (13:24)
[2020-02-10 13:35] LABS: ALT 16 U/L (14-59); AST 13 U/L (15-37); Albumin 2.5 g/dL (3.4-5.0); Alkaline Phosphatase 85 U/L (46-116); Anion Gap 8.3 mmol/L (3-11); BUN 4 mg/dL (7-18); Bilirubin, Total 0.5 mg/dL (0.2-1.0); CO2 22.7 mmol/L (21.0-32.0); CREATININE 0.57 mg/dL (0.55-1.02); Calcium 8.1 mg/dL (8.5-10.1); Chloride 104 mmol/L (98-107); Glucose 96 mg/dL (74-106); Magnesium 1.8 mg/dL (1.8-2.4); Potassium 3.7 mmol/L (3.5-5.1); Sodium 135 mmol/L (136-145); Total Protein 5.8 g/dL (6.4-8.2); Troponin I < 0.05 ng/mL (<0.06)
[2020-02-10 14:06] LABS: INR 0.9 (0.9-1.1)
[2020-02-10 14:08] LABS: Prothrombin Time 9.3 sec (9.3-11.0)
[2020-02-10] MEDS: Omnipaque 350 MG/ML 100 ML BTL IJ (15:00)
[2020-02-10] MEDS: Normal Saline - Diluent 50 ML VIAL IV (15:01)
[2020-02-10 15:57] VITALS: BP 103/55; PULSE 79; RESP 16; TEMP 36.7; O2SAT 98
== END 2020-02-10 16:09 | disposition home or self-care (01) ==
PROVIDERS: Emergency Provider Physician Assistant
DX: O99.512 Diseases of the respiratory system complicating pregnancy, second trimester (principal); R06.00 Dyspnea, unspecified; R07.89 Other chest pain; Z3A.29 29 weeks gestation of pregnancy
CPT/HCPCS: 71275; 80053; 93005; 96361; 96374; 99285; 83735; 84484; 85025; 85610; 85730; 93010; 99284; J0131; J3490

== ENCOUNTER 2020-02-18 13:23 | Outpatient (CLI) | payer MEDICAID, SELFPAY ==
[2020-02-18 14:04] VITALS: BP 93/50; PULSE 105; TEMP 37.1
[2020-02-18 14:08] VITALS: BP 93/50; PULSE 105
--- NOTE | 2020-02-18 15:04 | W.OBNST ---
Date of service: 02/18/20 Time of Service: 15:04 NST Evaluation Reason for NST Reasons for Nonstress Test: OTHER, SEE COMMENT Reason for NST Other: nausea, vomiting, temp of 100.1 at home, r/o dehydration Gestational Age Gestational Age in Weeks and Days: 27 Weeks and 3Days Test and Monitor Explained Test/Monitor Explained: Test Explained Vital Signs Blood Pressure: 93/50 Pulse: 101 Temperature: 98.7 F Urine Results Urine Protein: Negative Urine Ketones: Positive (small) Urine Glucose: Negative Urine Blood: Negative NST Information Time on Monitor: 14:08 Date off Monitor: 02/18/20 Time off Monitor: 14:28 NST Interventions: PO Hydration Contraction Frequency: none NST Evaluation Patient States Movement: Present FHR Baseline: 130 Variability: Moderate 6-25 bpm Accelerations: 15x15 Decelerations: None NST Results: Reactive Note NST Note Note: pt declines IVF or medication, requests note to stay out of work today, Rx for phenergan suppositories sent to pharmacy, pt discharged to home NST Reviewed and Verified by: Racquel Cardenas
[2020-02-18 15:11] VITALS: BP 93/50; PULSE 101
[2020-02-18 15:14] VITALS: TEMP 37.1
== END 2020-02-18 15:05 | disposition home or self-care (01) ==
LOC: BCD 13:27 → OBS 13:51
PROVIDERS: Visit Provider Advanced Practice Midwife
DX: O26.892 Other specified pregnancy related conditions, second trimester (principal); R11.2 Nausea with vomiting, unspecified; R50.9 Fever, unspecified; Z3A.27 27 weeks gestation of pregnancy
CPT/HCPCS: 59025

== ENCOUNTER 2020-03-19 18:47 | Outpatient (CLI) | payer MEDICAID, SELFPAY ==
[2020-03-19 19:37] VITALS: BP 109/68; PULSE 65; TEMP 36.6
[2020-03-19] MEDS: Promethazine 25 MG SUPP PR (19:58)
[2020-03-21 15:58] VITALS: BP 109/68; PULSE 65; TEMP 36.6
--- NOTE | 2020-03-21 15:58 | W.OBNST ---
Date of service: 03/19/20 Time of Service: 19:58 NST Evaluation Reason for NST Reasons for Nonstress Test: DECREASED MOVEMENT Gestational Age Gestational Age in Weeks and Days: 35 Weeks and 0Days Test and Monitor Explained Test/Monitor Explained: Test Explained, Monitor Explained and Patient Verbalized Understanding Vital Signs Blood Pressure: 109/68 Pulse: 65 Temperature: 97.9 F Urine Results Urine Protein: Negative Urine Ketones: Negative Urine Glucose: Negative Urine Blood: Negative NST Information Date on Monitor: 03/19/20 Time on Monitor: 19:25 Date off Monitor: 03/19/20 Time off Monitor: 19:55 Total Time on Monitor: 30 NST Interventions: PO Hydration, Reposition Patient and Notify Provider NST Evaluation Patient States Movement: Present FHR Baseline: 145 Variability: Moderate 6-25 bpm Accelerations: 15x15 Decelerations: None NST Results: Reactive Note NST Note NST Reviewed and Verified by: Racquel Cardenas
== END 2020-03-19 20:00 ==
LOC: BCD 18:54 → OBS 19:35
PROVIDERS: Visit Provider Advanced Practice Midwife
DX: O36.8130 Decreased fetal movements, third trimester, not applicable or unspecified (principal); Z3A.35 35 weeks gestation of pregnancy
CPT/HCPCS: 59025

== ENCOUNTER 2020-03-21 19:56 | Observation (INO) | payer MEDICAID, SELFPAY ==
[2020-03-21 20:20] VITALS: BP 104/70; PULSE 124; RESP 16; TEMP 36.6
[2020-03-21 22:52] LABS: ROM Plus Negative
[2020-03-21 23:00] VITALS: BP 110/71; PULSE 94; TEMP 36.6
[2020-03-21] MEDS: Lactated Ringers 1,000 ML 500 ML IV (23:00)
--- NOTE | 2020-03-22 09:47 | W.PM.HP.N ---
Date of service: 03/21/20 Time of Service: 21:00 Assessment and Plan Assessment and plan (1) Fall as cause of accidental injury at home as place of occurrence: Status: Acute (2) 35 weeks gestation of : Status: Acute History of Present Illness History of Present Illness Chief Complaint: fall on ice in the driveway Narrative: Lawanda reported that she fell on the ice in her driveway and was experiencing pain in her hip. She also requested a SVE because she has been checking herself and she feels that she is 2 cms dilated. She denied signs of labor. Review of Systems Gastrointestinal Comments: seen at the center 03/19 for dehydration. She was eating and drinking and IV hydration was not indicated. She was discharged with phenergan suppository. She reports that these symptoms resolved. [facility] Medical History (Updated 03/22/20 @ 09:53 by Luz Marina Fitzpatrick CNM) Abdominal pain Acute bronchiolitis due to respiratory syncytial virus (RSV) (03/24/12) ADHD (attention deficit hyperactivity disorder) Anaphylactic reaction 2017 - lip swelling, face swelling ER - allergy testing no trigger identified - has epi pen Body mass index, pediatric, 85th percentile to less than 95th percentile for age (03/29/14) Concern about STD in female without diagnosis Daytime sleepiness Depression Encounter for IUD removal Kyleena IUD inserted 06/14/2019. Removed 07/15/2019 at patient's request secondary to bleeding and stated desire to become . Patient declined alternative contraception. Encounter for smoking cessation counseling Exercise-induced asthma Family history of thyroid disease Lactose intolerance (10/25/15) Learning difficulty 504 plan Nasal congestion Patient desires 07/15/2019. Patient requested IUD to be removed. Rx for vitamins initiated. Smoker quit 10/04/19 URI (upper respiratory infection) Surgical History History of appendectomy [facility] 10/20/18 Family History Mother Essential hypertension Healthy adult Hypothyroid Father Healthy adult Asthma Other Personal history of malignant neoplasm paternal aunts-breast, maternal Asthma mat uncle, mat aunt, MGM Sister Asthma Social History Smoking/Tobacco Use Status: Current every day Tobacco Type: e-cigarettes Smoking risk assessment performed?: Yes Alcohol Intake: former Details: says she has stopped since she might be Drug use: Current Sobriety Substance use type: former substance user and marijuana Do you feel safe at home: Yes Do you feel safe in your relationship?: Yes Victim of physical abuse: No Victim of emotional abuse: No Victim of sexual abuse: No Female Reproductive History Menstrual Age of Menarche: 11 control method: none History History 1 Para 0 Hx # Term Pregnancies 0 Multiple births 0 Hx # Pregnancies 0 Ectopic pregnancies 0 AB induced 0 Hx Number of Living Children 0 AB spontaneous 0 Meds Home Medications and Allergies Home Medications Medication Instructions Recorded Confirmed Type epinephrine [EpiPen 2-Ssear] 0.3 mg IJ DIRECTED PRN #1 10/14/17 03/15/20 Rx auto.injct fluoxetine 10 mg capsule 10 mg PO DAILY #30 cap 10/06/19 03/15/20 Rx vits,calcium no.78-iron 1 tab PO DAILY #90 tab 10/08/19 03/15/20 Rx fumarate-folic acid 29 mg-1 mg tablet promethazine 25 mg rectal 25 mg [place] Q6H PRN #12 ea 02/18/20 03/15/20 Rx suppository maternity belt 1 unit MISCELLANEOUS DIRECTED 02/21/20 03/15/20 Rx #1 unit ferrous sulfate 325 mg (65 mg 325 mg PO DAILY #60 tab 02/24/20 03/15/20 Rx iron) tablet,delayed release omeprazole magnesium 20 mg 20 mg PO DAILY #30 tab 02/24/20 03/15/20 Rx tablet,delayed release albuterol sulfate 90 mcg/actuation 2 puff INHALATION ONCE PRN #8.5 g 03/15/20 03/15/20 Rx aerosol inhaler Allergies Allergy/AdvReac Type Severity Reaction Status Date / Time dog dander Allergy Severe Verified 03/15/20 09:30 house dust mite Allergy Severe Verified 03/15/20 09:30 Pertussis Vaccines AdvReac Intermediate hives/SOB Unverified 03/15/20 09:30 tetanus and diphtheria AdvReac Intermediate hives/SOB Unverified 03/15/20 09:30 toxoids Results Labs Labs: Laboratory Results - last 24 hr 03/21/20 22:22 Membranes Rupture Negative Last Vital Signs Temp 97.9 F 03/21/20 23:00 Pulse 94 H 03/21/20 23:00 Resp 16 03/21/20 20:20 BP 110/71 03/21/20 23:00 COVID-19 Screening Have you, or household traveled for leisure in last 14 days?: No
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
--- NOTE | 2020-03-22 10:09 | DSE_ITS ---
Date of service: 03/22/20 Time of Service: 00:30 DS: Diagnosis Discharge Diagnosis (1) Fall as cause of accidental injury at home as place of occurrence: Status: Acute Asessment and Plan: Lawanda had irregular contractions which were reported as mild to palpation by Elia, RN. She was experiencing a lot of discomfort related to her contractions so she called her mother in who is her labor support person, The RN repeated the SVE due to persistent discomfort and reported that the cervix remains closed. Lawanda reported that she had not had anything to eat or drink since breakfast so she received po fluids to drink and a meal. Due to persistent contractions and suspected dehydration, I ordered an IV bolus of 500 cc . Lawanda also reported that she was leaking fluid and I was notified of this by telephone by Elia. A ROM plus was ordered and was negative and the RN reported neg pooling. Lawanda got up to void and after returning to bed, she reported that her pain had stopped and she was no longer experiencing contractions. She was given the options of remaining at the Center for continued monitoring or returning home. She chose to go home. (2) 35 weeks gestation of : Status: Acute Asessment and Plan: (3) uterine contractions: Status: Acute Asessment and Plan: Signs of labor reviewed. Encourage to call if symptoms recur. Discharge Plan Disposition Patient Disposition: HOME Condition: Stable Discharge Details Reason For Visit: R/O LABOR Admit Date/Time: 03/21/20 19:56 Admit Provider: Luz Marina Fitzpatrick Attending Provider: Luz Marina Fitzpatrick Primary Care Provider: Unknown,Unknown Home Meds and New Rx's Prescriptions: No Action fluoxetine 10 mg capsule 10 mg PO DAILY Qty: 30 RF: 1 PreTAB 29-1 mg tablet 1 tab PO DAILY Qty: 90 RF: 4 maternity belt 1 unit miscellaneous DIRECTED Qty: 1 RF: 0 ferrous sulfate 325 mg (65 mg iron) tablet,delayed release (DR/EC) 325 mg PO DAILY Qty: 60 RF: 2 omeprazole magnesium 20 mg tablet,delayed release (DR/EC) 20 mg PO DAILY Qty: 30 RF: 2 albuterol sulfate [ProAir HFA] 90 mcg/actuation HFA aerosol inhaler 2 puff Inhalation ONCE PRN (Reason: asthma) Qty: 8.5 RF: 5 promethazine 25 mg suppository 25 mg NM Q6H PRN (Reason: nausea and vomiting) Qty: 12 RF: 1 epinephrine [EpiPen 2-Sesar] 0.3 MG/0.3 ML auto-injector 0.3 mg IJ DIRECTED PRN (Reason: impending anaphylaxis) Qty: 1 RF: 0 Discharge Instructions Instructions: Early Labor Signs (DC) Activity:: Activity as Tolerated Equipment/Supplies:: No Equipment Needed Diet:: As Tolerated Discharge Orders Discharge Orders: Discharge Order (Routine); Ordered 03/21/20 Ordered By: Luz Marina Fitzpatrick Discharge Data Discharge Date/Time-TO BE ENTERED AT DEPARTURE: 03/21/20 23:35 Discharge Comment: Discharged home with mom. DS: Summary Status at Discharge Functional status at discharge: independent ambulation Overall status at discharge: patient is back to baseline Mental Status: mental status grossly normal Speech and Movement: speech and movement normal Mood: congruent mood Affect: normal affect Exam Psych Mental Status: mental status grossly normal Speech and Movement: speech and movement normal Mood: congruent mood Affect: normal affect DS: Data Vitals/I&O Vitals and I&O: Vital Signs Temperature 97.9 F 03/21/20 23:00 Pulse 94 H 03/21/20 23:00 Pulse Rhythm Regular 03/21/20 20:20 Respiratory Rate 16 03/21/20 20:20 Blood Pressure 110/71 03/21/20 23:00 Blood Pressure Mean 84 03/21/20 23:00 Oxygen Delivery Method Room Air 03/21/20 20:20 Oxygen Flow Rate 0 03/21/20 20:20 Intake & Output 03/21/20 03/21/20 03/22/20 11:59 23:59 11:59 Intake Total 1410 / 1410 Output Total 50 / 50 Balance 1360 / 1360 Intake: IV 510 / 510 Oral 900 / 900 Output: Urine 50 / 50 Other: Urine Color Light Jenifer Data Completed and Pending Labs on day of discharge: Labs from last 24 hours 03/21/20 22:22 Membranes Rupture Negative [facility] Medical History (Updated 03/22/20 @ 10:18 by Luz Marina Fitzpatrick CNM) Abdominal pain Acute bronchiolitis due to respiratory syncytial virus (RSV) (03/24/12) ADHD (attention deficit hyperactivity disorder) Anaphylactic reaction 2018 - lip swelling, face swelling ER - allergy testing no trigger identified - has epi pen Body mass index, pediatric, 85th percentile to less than 95th percentile for age (03/29/14) Concern about STD in female without diagnosis Daytime sleepiness Depression Encounter for IUD removal Kyleena IUD inserted 06/14/2019. Removed 07/15/2019 at patient's request secondary to bleeding and stated desire to become . Patient declined alternative contraception. Encounter for smoking cessation counseling Exercise-induced asthma Family history of thyroid disease Lactose intolerance (10/25/15) Learning difficulty 504 plan Nasal congestion Patient desires 07/15/2019. Patient requested IUD to be removed. Rx for vitamins initiated. Smoker quit 10/04/19 URI (upper respiratory infection) Surgical History History of appendectomy [facility] 10/20/18 Family History Mother Essential hypertension Healthy adult Hypothyroid Father Healthy adult Asthma Other Personal history of malignant neoplasm paternal aunts-breast, maternal Asthma mat uncle, mat aunt, MGM Sister Asthma Social History Smoking/Tobacco Use Status: Current every day Tobacco Type: e-cigarettes Smoking risk assessment performed?: Yes Alcohol Intake: former Details: says she has stopped since she might be Drug use: Current Sobriety Substance use type: former substance user and marijuana Do you feel safe at home: Yes Do you feel safe in your relationship?: Yes Victim of physical abuse: No Victim of emotional abuse: No Victim of sexual abuse: No Female Reproductive History Menstrual Age of Menarche: 11 control method: none History History 1 Para 0 Hx # Term Pregnancies 0 Multiple births 0 Hx # Pregnancies 0 Ectopic pregnancies 0 AB induced 0 Hx Number of Living Children 0 AB spontaneous 0
== END 2020-03-21 23:35 | disposition home or self-care (01) ==
PROVIDERS: Admitting Provider Advanced Practice Midwife; Visit Provider Advanced Practice Midwife
DX: O9A.213 Injury, poisoning and certain other consequences of external causes complicating pregnancy, third trimester (principal); O47.03 False labor before 37 completed weeks of gestation, third trimester; M25.551 Pain in right hip; W00.0XXA Fall on same level due to ice and snow, initial encounter; Y92.014 Private driveway to single-family (private) house as the place of occurrence of the external cause; Z3A.35 35 weeks gestation of pregnancy
CPT/HCPCS: 84112; 99239; G0378

== ENCOUNTER 2020-03-27 23:23 | Emergency (ER) | payer MEDICAID, SELFPAY ==
[2020-03-27 23:28] VITALS: BP 127/68; PULSE 110; RESP 18; TEMP 36.9; O2SAT 99
--- NOTE | 2020-03-27 23:37 | W.ED.GENAD ---
Discharge Plan Disposition Patient Disposition: HOME Condition: Stable Discharge Details Clinical Impression: Post-nasal drip Primary Care Provider: Unknown,Unknown ED Provider: Devon Connolly Home Meds and New Rx's Prescriptions: Continued maternity belt 1 unit miscellaneous DIRECTED Qty: 1 RF: 0 ferrous sulfate 325 mg (65 mg iron) tablet,delayed release (DR/EC) 325 mg PO DAILY Qty: 60 RF: 2 albuterol sulfate [ProAir HFA] 90 mcg/actuation HFA aerosol inhaler 2 puff Inhalation ONCE PRN (Reason: asthma) Qty: 8.5 RF: 5 epinephrine [EpiPen 2-Sesar] 0.3 MG/0.3 ML auto-injector 0.3 mg IJ DIRECTED PRN (Reason: impending anaphylaxis) Qty: 1 RF: 0 Discharge Instructions Additional Instructions: Your strep test was negative You can try using a netti pot to help clear the nose use your inhaler as needed if symptoms continue in a week follow up with your primary care provider return to the emergency department for worsening shortness of breath or if you feel more ill you should be contacted with an appointment for a covid test Medical Decision Making 19 yo female g1 at 35 weeks comes in with complaints of 2 weeks of a runny nose and the past several days has had a productive cough and sore throat. Denies fevers, dyspnea and states when she coughs has chest discomfort but when not coughing no pain. She arrives appearing well in no distress speaking in full sentences and has no cough on exam. She has clear rhinorrhea, normal oropharynx with midline uvula and no pain over hyoid submandibular swelling or restricted neck movements swallowing normally. Clear lung sounds throughout. 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 Suspect sore throat is from the cough but will check for strep. Do not feel other labs or imaging indicated, will refer for covid testing Differential Diagnosis Differential Diagnosis: post nasal drip, rhinitis, uri, covid HPI General Mode of arrival: ambulatory. Date/Time Provider Initiated Documentation: 03/27/20 23:29. Limitations to Documentation: no limitations. Information obtained by: patient. History of Present Illness 19 year old F presents to the emergency department with the chief complaint of runny nose, described as mild, Patient started experiencing this week(s) (2) and it has been intermittent. No relieving factors improve symptom(s), No exacerbating factors reported . Patient notes cough. Patient did receive the following treatments prior to arrival, none Related Data Home Medications Medication Instructions Recorded Confirmed epinephrine [EpiPen 2-Sesar] 0.3 mg IJ DIRECTED PRN #1 10/14/17 03/27/20 auto.injct maternity belt 1 unit MISCELLANEOUS DIRECTED 02/21/20 03/15/20 #1 unit ferrous sulfate 325 mg (65 mg 325 mg PO DAILY #60 tab 02/24/20 03/27/20 iron) tablet,delayed release albuterol sulfate 90 mcg/actuation 2 puff INHALATION ONCE PRN #8.5 g 03/15/20 03/27/20 aerosol inhaler Previous Rx's Medication Instructions Recorded epinephrine [EpiPen 2-Sesar] 0.3 mg IJ DIRECTED PRN #1 10/14/17 auto.injct maternity belt 1 unit MISCELLANEOUS DIRECTED 02/21/20 #1 unit ferrous sulfate 325 mg (65 mg 325 mg PO DAILY #60 tab 02/24/20 iron) tablet,delayed release albuterol sulfate 90 mcg/actuation 2 puff INHALATION ONCE PRN #8.5 g 03/15/20 aerosol inhaler Allergies Allergy/AdvReac Type Severity Reaction Status Date / Time dog dander Allergy Severe Verified 03/27/20 23:30 house dust mite Allergy Severe Verified 03/27/20 23:30 Pertussis Vaccines AdvReac Intermediate hives/SOB Unverified 03/27/20 23:30 tetanus and diphtheria AdvReac Intermediate hives/SOB Unverified 03/27/20 23:30 toxoids General Stated Complaint: RespSymp CLARKE: 4 Review of Systems All systems reviewed & are unremarkable except as noted in HPI and below Constitutional Constitutional: Denies chills, Denies fever(s) and Denies weakness Cardiovascular Cardiovascular: Denies dyspnea Respiratory Respiratory: Denies dyspnea Gastrointestinal Gastrointestinal: Denies abdominal pain, Denies nausea and Denies vomiting Genitourinary Genitourinary: Denies dysuria Musculoskeletal Musculoskeletal: Denies joint swelling Neurologic Neurologic: Denies weakness Psychiatric Psychiatric: Denies depression [facility] Medical History (Updated 03/27/20 @ 23:42 by Devon Connolly MD) Abdominal pain Acute bronchiolitis due to respiratory syncytial virus (RSV) (03/24/12) ADHD (attention deficit hyperactivity disorder) Anaphylactic reaction 2018 - lip swelling, face swelling ER - allergy testing no trigger identified - has epi pen Body mass index, pediatric, 85th percentile to less than 95th percentile for age (03/29/14) Concern about STD in female without diagnosis Daytime sleepiness Depression Encounter for IUD removal Kyleena IUD inserted 06/14/2019. Removed 07/15/2019 at patient's request secondary to bleeding and stated desire to become . Patient declined alternative contraception. Encounter for smoking cessation counseling Exercise-induced asthma Family history of thyroid disease Lactose intolerance (10/25/15) Learning difficulty 504 plan Nasal congestion Patient desires 07/15/2019. Patient requested IUD to be removed. Rx for vitamins initiated. Smoker quit 10/04/19 URI (upper respiratory infection) Surgical History History of appendectomy [facility] 10/20/18 Family History Mother Essential hypertension Healthy adult Hypothyroid Father Healthy adult Asthma Other Personal history of malignant neoplasm paternal aunts-breast, maternal Asthma mat uncle, mat aunt, MGM Sister Asthma Social History Smoking/Tobacco Use Status: Current every day Tobacco Type: e-cigarettes Smoking risk assessment performed?: Yes Alcohol Intake: former Details: says she has stopped since she might be Drug use: Current Sobriety Substance use type: former substance user and marijuana Do you feel safe at home: Yes Do you feel safe in your relationship?: Yes Victim of physical abuse: No Victim of emotional abuse: No Victim of sexual abuse: No Female Reproductive History Menstrual Age of Menarche: 11 control method: none History History 1 Para 0 Hx # Term Pregnancies 0 Multiple births 0 Hx # Pregnancies 0 Ectopic pregnancies 0 AB induced 0 Hx Number of Living Children 0 AB spontaneous 0 Exam Const General: no acute distress Orientation: alert HENMT Head: normal to inspection Ears: external ears normal General nose exam: external nose normal Mouth: moist mucous membranes Eyes General: appearance normal, both eyes and all related structures Neck Neck: normal visual inspection Resp Effort & Inspection: normal respiratory effort and able to speak in complete sentences Cardio Rate: regular rate Skin General skin exam: no rashes or lesions noted Neuro General: patient alert and patient oriented x3 Extrem General: normal to inspection Psych Mental Status: mental status grossly normal Course Vital Signs Vital signs: Vital Signs Temperature 36.9 C 03/27/20 23:28 Pulse 110 H 03/27/20 23:28 Respiratory Rate 18 03/27/20 23:28 Blood Pressure 127/68 03/27/20 23:28 Pulse Oximetry 99 03/27/20 23:28 Temperature 36.9 C 03/27/20 23:28 Temperature Source Skin 03/27/20 23:28 Pulse 110 H 03/27/20 23:28 Respiratory Rate 18 03/27/20 23:28 Blood Pressure 127/68 03/27/20 23:28 Blood Pressure Position Sitting 03/27/20 23:28 Pulse Oximetry 99 03/27/20 23:28 Oxygen Delivery Method Room Air 03/27/20 23:28 Oxygen Flow Rate 0 03/27/20 23:28 Pain Level 7 03/27/20 23:28
== END 2020-03-27 23:50 | disposition home or self-care (01) ==
PROVIDERS: Emergency Provider Emergency Medicine
DX: O99.513 Diseases of the respiratory system complicating pregnancy, third trimester (principal); Z3A.35 35 weeks gestation of pregnancy; R09.82 Postnasal drip; R05 Cough
CPT/HCPCS: 87880; 99282; 99283

== ENCOUNTER 2020-04-01 05:46 | Outpatient (CLI) | payer MEDICAID, SELFPAY ==
[2020-04-01 05:55] VITALS: BP 110/75; PULSE 98; RESP 16; TEMP 36.6; O2SAT 99
[2020-04-01 05:56] VITALS: BP 110/75; PULSE 110
[2020-04-01 06:25] VITALS: BP 110/75; PULSE 98; TEMP 36.6
[2020-04-01] MEDS: hydrOXYzine PAMOATE 25 MG CAP 75 MG PO (06:49)
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
[2020-04-01 06:55] VITALS: BP 110/75; PULSE 98; TEMP 36.6
[2020-04-01 07:54] LABS: *AMPHETAMINES SCREEN URINE Negative (Negative); *BARBITURATES SCREEN URINE Negative (Negative); *BENZODIAZEPINES SCREEN URINE Negative (Negative); Cannabinoids THC Negative (Negative); Cocaine Screen,Urine Negative (Negative); METHADONE URINE SCREEN Negative (Negative); OPIATES URINE SCREEN Negative (Negative)
[2020-04-01 07:56] LABS: Tricyclic Antidepressants Negative (Negative)
[2020-04-11 12:14] LABS: Buprenorphine Negative
== END 2020-04-01 06:52 ==
LOC: BCD 05:50 → OBS 05:52
PROVIDERS: Visit Provider Advanced Practice Midwife
DX: O36.8130 Decreased fetal movements, third trimester, not applicable or unspecified (principal); Z36.85 Encounter for antenatal screening for Streptococcus B; Z3A.36 36 weeks gestation of pregnancy
CPT/HCPCS: 59025; 80307; 87081

== ENCOUNTER 2020-04-02 17:24 | Outpatient (CLI) | payer MEDICAID, SELFPAY ==
[2020-04-02 17:45] VITALS: BP 110/72; PULSE 105; TEMP 36.5
[2020-04-02 17:59] VITALS: BP 110/72; PULSE 105
[2020-04-02] MEDS: Acetaminophen 325 MG TAB 650 MG PO (18:48)
[2020-04-03 06:58] VITALS: BP 110/72; PULSE 105; TEMP 36.5
--- NOTE | 2020-04-03 06:58 | W.OBNST ---
Date of service: 04/02/20 Time of Service: 20:13 NST Evaluation Reason for NST Reasons for Nonstress Test: FALSE LABOR Gestational Age Gestational Age in Weeks and Days: 37 Weeks and 0Days Test and Monitor Explained Test/Monitor Explained: Test Explained, Monitor Explained and Patient Verbalized Understanding Vital Signs Blood Pressure: 110/72 Pulse: 105 Temperature: 97.7 F Urine Results Urine Protein: Negative Urine Ketones: Negative Urine Glucose: Negative Urine Blood: Negative NST Information Date on Monitor: 04/02/20 Time on Monitor: 17:45 Date off Monitor: 04/02/20 Time off Monitor: 18:52 Total Time on Monitor: 67 NST Interventions: PO Hydration Contraction Frequency: 17 NST Evaluation Patient States Movement: Present FHR Baseline: 145 Variability: Moderate 6-25 bpm Accelerations: 15x15 Decelerations: None NST Results: Reactive Note NST Note NST Reviewed and Verified by: Racquel Cardenas
== END 2020-04-02 18:59 | disposition home or self-care (01) ==
LOC: BCD 17:27 → OBS 17:44
PROVIDERS: Visit Provider Advanced Practice Midwife
DX: O47.1 False labor at or after 37 completed weeks of gestation (principal); Z3A.37 37 weeks gestation of pregnancy
CPT/HCPCS: 59025

== ENCOUNTER 2020-04-11 04:06 | Inpatient (IN) | payer MEDICAID, SELFPAY ==
[2020-04-11] VITALS (8 sets, daily range): BP systolic 109–119; BP diastolic 62–72; PULSE 71–99; RESP 14–20; TEMP 36.6–36.9; O2SAT 98
[2020-04-11 05:18] LABS: HCT 32.1 % (36.0-46.0); HGB 10.5 g/dL (11.2-15.7); MCH 28.8 pg (27.0-33.0); MCHC 32.7 % (32.0-36.0); MCV 87.9 fL (80-95); MPV 10.8 fL (8.0-11.0); Platelet Count 230 10^3/uL (130-400); RBC 3.65 10^6/uL (3.93-5.22); RDW 11.6 % (11.7-14.6); RDW-SD 37.2 fL; WBC 9.99 10^3/uL (4.4-10.8)
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
--- NOTE | 2020-04-11 11:34 | W.PM.OBNL1 ---
Date of service: 04/11/20 Time of Service: 11:34 Pelvic Exam Dilation: 0 Effacement (%): 20 station: -2 Cervix Position: posterior Consistency: soft Vaginal Exam Presentation: Cephalic Pooling: Positive Contractions Monitor Mode: Palpation Contraction Frequency(min): occasional Intensity: Mild Fetus A Monitor: External (US) Heart Rate Baseline: 120 Presentation: Vertex Variability: Moderate (6-25 BPM) Categories: Category I FHR Rhythm: Regular Characteristics: Normal Accelerations: 15 X 15 Decelerations: None Amniotic Membrane Status: Ruptured Assessment and Plan Assessment and plan (1) Spontaneous rupture of amniotic membranes: Status: Acute (2) Encounter for induction of labor: Status: Acute Assessment and plan: Cervical ripening with misoprostol discussed with Lawanda and her mother Gina. Lawanda would very much like to proceed with induction of labor at this time. Misoprostol 50 mcg PO has been ordered. Anticipate . Objective Abnormal lab results 04/11/20 Range/Units 05:05 RBC 3.65 L (3.93-5.22) 10^6/uL Hgb 10.5 L (11.2-15.7) g/dL Hct 32.1 L (36.0-46.0) % RDW 11.6 L (11.7-14.6) % Temp Pulse Resp BP Pulse Ox 98.4 F 78 14 109/62 98 04/11/20 10:11 04/11/20 10:11 04/11/20 10:11 04/11/20 10:11 04/11/20 04:38 Laboratory Results WBC 9.99 10^3/uL (4.4-10.8) 04/11/20 05:05 RBC 3.65 10^6/uL (3.93-5.22) L 04/11/20 05:05 Hgb 10.5 g/dL (11.2-15.7) L 04/11/20 05:05 Hct 32.1 % (36.0-46.0) L 04/11/20 05:05 MCV 87.9 fL (80-95) 04/11/20 05:05 MCH 28.8 pg (27.0-33.0) 04/11/20 05:05 MCHC 32.7 % (32.0-36.0) 04/11/20 05:05 RDW 11.6 % (11.7-14.6) L 04/11/20 05:05 Plt Count 230 10^3/uL (130-400) 04/11/20 05:05 MPV 10.8 fL (8.0-11.0) 04/11/20 05:05 Patient ABO/Rh A Positive 04/11/20 05:05 Antibody Screen Negative 04/11/20 05:05 Subjective Patient Reports: No new Complaints Interval history since last seen: Lawanda slept well for two hours. Her contractions have slowed down. She reported that she is still leaking clear fluid. Results Hemoglobin/Hematocrit: Hgb 10.5 g/dL (11.2-15.7) L 04/11/20 05:05 Hct 32.1 % (36.0-46.0) L 04/11/20 05:05 Abnormal Lab Findings: Abnormal Labs 04/11/20 05:05 RBC 3.65 L Hgb 10.5 L Hct 32.1 L RDW 11.6 L
[2020-04-11] MEDS: miSOPROStol 25 MCG TAB 50 MCG PO ×4 (11:51→21:22)
[2020-04-11] MEDS: Nicotine 7 MG/24 HR PATCH TD ×2 (17:56→19:35)
[2020-04-11] MEDS: Zolpidem 5 MG TAB 10 MG PO (21:00)
[2020-04-11 21:59] LABS: COVID-19 RT-PCR UVMMC Result Negative (Negative)
[2020-04-12] VITALS (97 sets, daily range): BP systolic 90–115; BP diastolic 50–75; PULSE 70–109; RESP 16–20; TEMP 36.6–37; O2SAT 93–100
--- NOTE | 2020-04-12 | PGE_ITS ---
Date of service: 04/12/20 Time of Service: 00:00 Informed Consent Informed Consent: Regional Anesthesia Pelvic Exam Dilation: 4 Effacement (%): 80 station: -1 Cervix Position: mid Consistency: soft Vaginal Exam Presentation: Cephalic Pooling: Negative Contractions Monitor Mode: External Contraction Frequency(min): every 3 minutes Intensity: Moderate Fetus A Monitor: External (US) Heart Rate Baseline: 130 Presentation: Cephalic Variability: Moderate (6-25 BPM) Categories: Category I FHR Rhythm: Regular Characteristics: Normal Accelerations: 15 X 15 Decelerations: None Amniotic Membrane Status: Ruptured Assessment and Plan Assessment and plan (1) Encounter for induction of labor: Status: Acute Assessment and plan: Coping well with contractions. SVE performed and cervix 480/-1 . Category 1 tracing. Anesthesia called for epidural placement. Anticipate Objective Abnormal lab results 04/11/20 Range/Units 05:05 RBC 3.65 L (3.93-5.22) 10^6/uL Hgb 10.5 L (11.2-15.7) g/dL Hct 32.1 L (36.0-46.0) % RDW 11.6 L (11.7-14.6) % Temp Pulse Resp BP Pulse Ox 98.2 F 86 18 116/72 98 04/11/20 20:00 04/11/20 23:45 04/11/20 20:00 04/11/20 23:45 04/11/20 17:48 Laboratory Results WBC 9.99 10^3/uL (4.4-10.8) 04/11/20 05:05 RBC 3.65 10^6/uL (3.93-5.22) L 04/11/20 05:05 Hgb 10.5 g/dL (11.2-15.7) L 04/11/20 05:05 Hct 32.1 % (36.0-46.0) L 04/11/20 05:05 MCV 87.9 fL (80-95) 04/11/20 05:05 MCH 28.8 pg (27.0-33.0) 04/11/20 05:05 MCHC 32.7 % (32.0-36.0) 04/11/20 05:05 RDW 11.6 % (11.7-14.6) L 04/11/20 05:05 Plt Count 230 10^3/uL (130-400) 04/11/20 05:05 MPV 10.8 fL (8.0-11.0) 04/11/20 05:05 SARS-CoV-2 (PCR) Negative (Negative) 04/11/20 05:00 Dipak COVID-19 PCR Not Applicable 04/11/20 05:00 Ref Test Perform Site [facility] lab 04/11/20 05:00 Patient ABO/Rh A Positive 04/11/20 05:05 Antibody Screen Negative 04/11/20 05:05 Subjective Patient Reports: New Complaints Interval history since last seen: Complains of strong contractions and pain. She requested an epidural. Using nitrous oxide with good effect. Results Hemoglobin/Hematocrit: Hgb 10.5 g/dL (11.2-15.7) L 04/11/20 05:05 Hct 32.1 % (36.0-46.0) L 04/11/20 05:05 Abnormal Lab Findings: Abnormal Labs 04/11/20 05:05 RBC 3.65 L Hgb 10.5 L Hct 32.1 L RDW 11.6 L
[2020-04-12] MEDS: Lactated Ringers 500 ML IV (00:33)
[2020-04-12] MEDS: Bupivacaine 0.25% Pres-Free 10 ML VIAL EP (01:06)
[2020-04-12] MEDS: fentaNYL 100 MCG/2 ML VIAL EP (01:06)
[2020-04-12] MEDS: FentaNYL/ROPIvacaine 2 mcg/ml and 0.1% 200 ML CADD Cassette EP (01:24)
[2020-04-12] MEDS: Oxytocin/Normal Saline 30 UNIT/500 ML BAG 1 UNITS IV (05:15)
--- NOTE | 2020-04-12 06:03 | W.PM.OBNL1 ---
Date of service: 04/12/20 Time of Service: 06:03 Pelvic Exam Dilation: 5 Effacement (%): 90 station: -1 Cervix Position: mid Consistency: soft Vaginal Exam Presentation: Cephalic Comments: caput noted and swelling of cervix. Contractions Monitor Mode: External Intensity: Moderate/Strong Fetus A Monitor: External (US) Heart Rate Baseline: 120 Presentation: Vertex Variability: Moderate (6-25 BPM) Categories: Category I FHR Rhythm: Regular Characteristics: Normal Accelerations: 15 X 15 Decelerations: Variable (variable decellerations with contractions. Rapid return to baseline) Recurrence: Intermittent Amniotic Membrane Status: Ruptured Assessment and Plan Assessment and plan (1) Encounter for induction of labor: Status: Acute Assessment and plan: Pitocin is current;y at 2 mu/min. Will continue to assess progress in labor and FHR pattern. Dr. Valentino was notified of patient;s status. SVE after 2 hours to assess progress. Objective Temp Pulse Resp BP Pulse Ox 98.2 F 79 18 96/52 L 98 04/11/20 20:00 04/12/20 05:59 04/11/20 20:00 04/12/20 05:59 04/12/20 05:58 Laboratory Results WBC 9.99 10^3/uL (4.4-10.8) 04/11/20 05:05 RBC 3.65 10^6/uL (3.93-5.22) L 04/11/20 05:05 Hgb 10.5 g/dL (11.2-15.7) L 04/11/20 05:05 Hct 32.1 % (36.0-46.0) L 04/11/20 05:05 MCV 87.9 fL (80-95) 04/11/20 05:05 MCH 28.8 pg (27.0-33.0) 04/11/20 05:05 MCHC 32.7 % (32.0-36.0) 04/11/20 05:05 RDW 11.6 % (11.7-14.6) L 04/11/20 05:05 Plt Count 230 10^3/uL (130-400) 04/11/20 05:05 MPV 10.8 fL (8.0-11.0) 04/11/20 05:05 SARS-CoV-2 (PCR) Negative (Negative) 04/11/20 05:00 Nasnanetetaryn COVID-19 PCR Not Applicable 04/11/20 05:00 Ref Test Perform Site [facility] lab 04/11/20 05:00 Patient ABO/Rh A Positive 04/11/20 23:45 Antibody Screen Negative 04/11/20 23:45 Subjective Interval history since last seen: Good effect from epidural. Resting. Contractions spaced to 4-5 minutes apart. itocin augmentation was started. Results Hemoglobin/Hematocrit: Hgb 10.5 g/dL (11.2-15.7) L 04/11/20 05:05 Hct 32.1 % (36.0-46.0) L 04/11/20 05:05 Abnormal Lab Findings: Abnormal Labs 04/11/20 05:05 RBC 3.65 L Hgb 10.5 L Hct 32.1 L RDW 11.6 L
--- NOTE | 2020-04-12 07:14 | W.OBCONSULT ---
Date of service: 04/12/20 Time of Service: 07:14 Assessment and Plan Assessment and plan (1) : Status: Acute (2) Arrested labor: Status: Acute Assessment and plan: Patient is a 19-year-old female who has had care with women's wellness. 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 She presented with spontaneous rupture of membranes for clear fluid greater than 24 hours ago. She was not dilated at that time and had cervical ripening performed. She subsequently had spontaneous labor which needed augmentation. She received epidural for pain control. She had a labor arrest at 5 cm with heart rate in the 1 teens to 120s moderate variability however deep variables with sequenced contractions. Cervical exam has been unchanged for greater than 5 hours with swelling of the cervix, and arrest of descent. The risk benefits and alternatives of operative delivery by were explained the patient full informed consent was obtained. She does understand the risk of infection, bleeding, injury to surrounding organs, potential risk for anesthesia, thromboembolism, and . She will have preoperative antibiotics including Ancef and Zithromax. We will proceed to the OR shortly. Crew was called and clinical services assistant obtained. History of Present Illness History of Present Illness Chief Complaint: Labor arrest Consults Consult date: 04/12/20 Requesting physician: Luz Marina Fitzpatrick Review of Systems All systems reviewed & are unremarkable except as noted in HPI and below Constitutional Constitutional: Reports system reviewed and no additional complaints, except as documented Cardiovascular Cardiovascular: Reports as per HPI, Denies chest pain and Denies dyspnea Respiratory Respiratory: Reports system reviewed and no additional complaints, except as documented, Denies chest congestion, Denies cough and Denies dyspnea Gastrointestinal Gastrointestinal: Reports as per HPI Genitourinary Genitourinary: Reports system reviewed and no additional complaints, except as documented Psychiatric Psychiatric: Reports system reviewed and no additional complaints, except as documented, Reports anxiety and Reports panic attacks [facility] Medical History (Updated 04/12/20 @ 07:17 by Hilda Valentino DO) Abdominal pain Acute bronchiolitis due to respiratory syncytial virus (RSV) (03/24/12) ADHD (attention deficit hyperactivity disorder) Anaphylactic reaction 2017 - lip swelling, face swelling ER - allergy testing no trigger identified - has epi pen Arrested labor Body mass index, pediatric, 85th percentile to less than 95th percentile for age (03/29/14) Concern about STD in female without diagnosis Daytime sleepiness Depression Encounter for IUD removal Kyleena IUD inserted 06/14/2019. Removed 07/15/2019 at patient's request secondary to bleeding and stated desire to become . Patient declined alternative contraception. Encounter for smoking cessation counseling Exercise-induced asthma Family history of thyroid disease Lactose intolerance (10/25/15) Learning difficulty 504 plan Nasal congestion Patient desires 07/15/2019. Patient requested IUD to be removed. Rx for vitamins initiated. Smoker quit 10/04/19 URI (upper respiratory infection) Surgical History History of appendectomy [facility] 10/20/18 Family History Mother Essential hypertension Healthy adult Hypothyroid Father Healthy adult Asthma Other Personal history of malignant neoplasm paternal aunts-breast, maternal Asthma mat uncle, mat aunt, MGM Sister Asthma Social History Smoking/Tobacco Use Status: Current every day Tobacco Type: e-cigarettes Smoking risk assessment performed?: Yes Alcohol Intake: former Details: says she has stopped since she might be Drug use: Current Sobriety Substance use type: former substance user and marijuana Do you feel safe at home: Yes Do you feel safe in your relationship?: Yes Victim of physical abuse: No Victim of emotional abuse: No Victim of sexual abuse: No Female Reproductive History Menstrual Age of Menarche: 11 control method: none History History 1 Para 0 Hx # Term Pregnancies 0 Multiple births 0 Hx # Pregnancies 0 Ectopic pregnancies 0 AB induced 0 Hx Number of Living Children 0 AB spontaneous 0 Exam Narrative Exam Narrative: Currently asked to see patient who has been laboring for greater than 24 hours. She is spontaneous rupture of membranes at 345 on 1229. She had 3 doses of misoprostol for cervical ripening and subsequent Pitocin augmentation of labor. She received epidural for pain control. She has had a labor arrest at cervical dilation of 5 cm with vertex at the 0 station. Const General: cooperative, healthy appearing, no acute distress and well developed Eyes General: appearance normal, both eyes and all related structures Resp Effort & Inspection: normal respiratory effort Auscultation: clear to auscultation bilaterally Cardio Palpation: normal PMI Rate: regular rate Rhythm: regular rhythm GI Inspection: normal to inspection Manual OB Exam: dilated 5, effaced 50%, station 0 and other (Caput present, vertex asynclitic) Amniotic Fluid: clear Neuro General: patient alert and patient oriented x3 Extrem General: normal to inspection, no calf tenderness and edema (1+) Laterality: bilateral Psych Appearance: grossly normal Speech and Movement: speech and movement normal Mood: congruent mood Affect: normal affect Attitude: cooperative Thought Process: normal Thought Content: normal Insight: insight good Judgment: judgment good Results Last Vital Signs Temp 98.2 F 04/11/20 20:00 Pulse 98 H 04/12/20 07:03 Resp 18 04/11/20 20:00 BP 97/55 L 04/12/20 06:35 Pulse Ox 99 04/12/20 07:03 Labs Result diagrams: 04/11/20 05:05 Labs: Laboratory Results - last 24 hr 04/11/20 04/11/20 05:00 23:45 SARS-CoV-2 (PCR) Negative Nasopharyn COVID-19 PCR Not Applicable Ref Test Perform Site [facility] lab Patient ABO/Rh A Positive Antibody Screen Negative
[2020-04-12] MEDS: ceFAZolin 2 GM/50 ML BAG IVPB (07:27)
[2020-04-12] MEDS: Sodium Citrate 30 ML CUP PO (07:30)
[2020-04-12] MEDS: Lactated Ringers 1,000 ML 200 ML IV (07:45)
[2020-04-12] MEDS: AZITHROMYCIN 500 MG in Normal Saline 250 ML 250 MG IVPB (07:45)
[2020-04-12] MEDS: Oxytocin/Normal Saline 30 UNIT/500 ML BAG 95 UNITS IV (08:05)
--- NOTE | 2020-04-12 08:42 | W.PM.OBCSECT ---
Date of service: 04/12/20 Time of Service: 08:42 Operative Note Operative Note Delivery Method: Unscheduled Category: Urgent DATE OF PROCEDURE: 04/12/20 PRE-OP DIAGNOSES: Labor Arrest POST-OP DIAGNOSES: other (Same with Occiput transverse) Same with persistent occiput transverse and body cord x2 PROCEDURE: Primary low transverse section SURGEON: Hilda Valentino Assisting Surgeon: Rosi Snow Anesthesia: epidural Estimated blood loss (mL): 550 Pathology: none sent Complications: None Patient was transported to: floor Patient's condition: stable Indications: Labor arrest, variable decelerations Findings: Normal-appearing tubes, ovaries, uterus. Viable male infant with persistent occiput transverse position and body cord loose, x2. Procedure Description: After full informed consent was obtained, patient taken the operating suite with an IV running. She was placed in the dorsal supine position and her epidural was bolused for adequate pain relief during her procedure. This was tested and found be adequate. She had pneumatic compression stockings placed and her functional Rogers catheter was inserted and vaginal prep undertaken. At this point attention was turned to the abdomen where her abdomen was prepped and draped in usual sterile fashion. Pfannenstiel skin incision was made carried down to the underlying fascia which was nicked in midline and fascial incision extended laterally. Fascia was elevated and split from the rectus muscle. Rectus muscle split in the midline and peritoneum identified tented up and entered sharply. The peritoneal incision was extended superiorly and inferiorly and bladder blade was inserted. Vesicouterine peritoneum was identified tented up and entered sharply and the bladder flap was created. Bladder blade was reinserted and a low transverse uterine incision was made with a scalpel and extended bluntly laterally. The vertex was identified in the persistent left occiput transverse position. vertex was delivered atraumatically through the incision there is noted to be a loose body cord x2. Shoulders with knees. Three-vessel cord was noted to have cut and was handed off to the waiting building maintenance supervisor. At this point cord blood gas sample and cord blood blood were both obtained. Placenta was expressed manually from the uterus. Uterus exteriorized and cleared of all clot and debris. Uterine incision was then closed using 0 Monocryl suture in a running locked fashion and a second imbricating layer of 0 Monocryl suture placed. Uterine incision was found to be hemostatic. The uterus was then returned to the abdomen and abdomen irrigated copious amounts of normal saline. The fascial incision was then closed using 0 Vicryl suture in a running fashion subcutaneous tissue irrigated with copious hemostatic. Subcu space was closed with 3-0 Vicryl in a simple interrupted fashion and skin edge reapproximated with a subcuticular stitch of 4-0 Monocryl. Steri-Strips were placed. Uterus was found to be firm 2 cm below the umbilicus. Patient was returned to the floor with a Rogers catheter in place draining clear yellow urine. Findings: Delivered viable male in the persistent occiput transverse position with body cord x2. Normal tubes, ovaries, uterus. Complications: None apparent EBL: 550 cc Specimens: None Infant Gender: Male
[2020-04-12] MEDS: Acetaminophen 325 MG TAB 650 MG PO (09:07)
[2020-04-12] MEDS: Normal Saline Flush 10 ML SYR IVP ×2 (14:11→19:48)
[2020-04-12] MEDS: Ketorolac 30 MG/ML VIAL IVP ×2 (14:11→19:48)
[2020-04-12] MEDS: Lactated Ringers 1,000 ML 120 ML IV (15:07)
[2020-04-13] MEDS: Ketorolac 30 MG/ML VIAL IVP (02:00)
[2020-04-13 06:31] VITALS: BP 105/64; PULSE 79; RESP 18; TEMP 36.8
[2020-04-13 06:47] LABS: Abs Immature Grans 0.06 10^3/uL (0.0-0.06); Absolute Basophil Count 0.03 10^3/uL (0.0-0.2); Absolute Eosinophil Count 0.09 10^3/uL (0.0-0.7); Absolute Lymphocyte Count 1.35 10^3/uL (1.2-3.4); Absolute Monocyte Count 0.64 10^3/uL (0.1-0.8); Absolute Neutrophil Count 9.14 10^3/uL (1.2-6.7); Basophils % 0.3; Eosinophils % 0.8; HGB 7.9 g/dL (11.2-15.7); Immature Grans % 0.5; Lymphocytes % 11.9; MCH 28.4 pg (27.0-33.0); MCHC 31.6 % (32.0-36.0); MCV 89.9 fL (80-95); Monocytes % 5.7; Neutrophils % 80.8; Nucleated RBC 0 %; Platelet Count 172 10^3/uL (130-400); RBC 2.78 10^6/uL (3.93-5.22); RDW 11.9 % (11.7-14.6); WBC 11.31 10^3/uL (4.4-10.8)
[2020-04-13 07:45] VITALS: BP 101/62; PULSE 79; RESP 16; TEMP 36.7; O2SAT 99
--- NOTE | 2020-04-13 09:14 | OBPPV_ITS ---
Date of service: 04/13/20 Time of Service: 09:14 Assessment and Plan Assessment and plan (1) Status post primary low transverse section: Status: Acute Assessment and plan: Postoperative day #1 status post primary low transverse section. Doing well. Patient desires discharge home later today if possible. [place] circumcision performed. Patient bonding well. Difficulties with feeding. Breast-feeding encouraged. Subjective Subjective Interval history: Patient seen and examined this morning. Doing well some pain. No flatus as of yet. She has been ambulating. She has been voiding without difficulty. Tolerating regular diet. She desires discharge to home today. Patient comments: No complaints, Pain well controlled, Incisional pain and Tolerating diet baby status: Doing well [place] feeding status: Breast and formula feeding Exam Physical Exam Vital signs: Temp Pulse Resp BP Pulse Ox 98.1 F 79 16 101/62 99 04/13/20 07:45 04/13/20 07:45 04/13/20 07:45 04/13/20 07:45 04/13/20 07:45 Constitutional Constitutional: no acute distress HEENT Exam HEENT Exam: Normal Neck Exam Neck Exam: Normal Respiratory Exam Respiratory Exam: Normal Cardiovascular Exam Cardiovascular Exam: Normal Abdominal Exam Comments: Incision clean dry intact, dressed. Fundus firm, 3 cm below the umbilicus Extremities Exam Extremity Exam: negative Calf Tenderness and Edema Results Hemoglobin/Hematocrit: Hgb 7.9 g/dL (11.2-15.7) L D 04/13/20 06:28 Hct 25.0 % (36.0-46.0) L D 04/13/20 06:28 Abnormal Lab Findings: Abnormal Labs 04/11/20 04/13/20 05:05 06:28 WBC 11.31 H RBC 3.65 L 2.78 L Hgb 10.5 L 7.9 L D Hct 32.1 L 25.0 L D MCHC 31.6 L RDW 11.6 L Absolute Neutrophils 9.14 H
[2020-04-13 12:45] VITALS: BP 101/66; PULSE 98; RESP 16; TEMP 36.5; O2SAT 98
[2020-04-13] MEDS: Docusate Sodium 100 MG CAP PO (13:56)
[2020-04-13] MEDS: Ibuprofen 600 MG TAB PO ×2 (13:56→19:39)
[2020-04-13] MEDS: Acetaminophen 325 MG TAB 650 MG PO ×2 (13:56→19:39)
[2020-04-13 15:15] VITALS: BP 109/68; PULSE 88; RESP 16; TEMP 36.5; O2SAT 97
[2020-04-14 00:28] VITALS: BP 99/61; PULSE 85; RESP 16; TEMP 36.7; O2SAT 98
[2020-04-14] MEDS: Acetaminophen 325 MG TAB 650 MG PO (06:33)
[2020-04-14] MEDS: Ibuprofen 600 MG TAB PO (06:34)
[2020-04-14 07:51] VITALS: BP 113/72; PULSE 92; RESP 18; TEMP 36.5; O2SAT 99
--- NOTE | 2020-04-14 09:28 | OBPPV_ITS ---
Date of service: 04/14/20 Time of Service: 09:29 Assessment and Plan Assessment and plan (1) Status post primary low transverse section: Status: Acute Assessment and plan: Postoperative day #2 status post primary low transverse section for arrest of labor. Doing well. Ambulating, tolerating regular diet and oral pain medication with stable vital signs. Will discharge to home. Follow-up in the office in 1 to 2 weeks. Precautions given. Subjective Subjective Interval history: Patient seen and examined postoperative day #2 ambulating, tolerating regular diet and oral pain medication with stable vital signs. She has passed flatus and had a bowel movement Patient comments: No complaints, Pain well controlled, Tolerating diet and Flatus present [place] baby status: Doing well and Nursing well [place] feeding status: Exclusively breast feeding and Pumping and bottle feeding Exam Physical Exam Vital signs: Temp Pulse Resp BP Pulse Ox 97.7 F 92 H 18 113/72 99 04/14/20 07:51 04/14/20 07:51 04/14/20 07:51 04/14/20 07:51 04/14/20 07:51 Constitutional Constitutional: no acute distress HEENT Exam HEENT Exam: Normal Detailed Neck Exam Neck exam general surgery: Present supple; Absent JVD Respiratory Exam Respiratory Exam: Normal Cardiovascular Exam Cardiovascular Exam: Normal Abdominal Exam Comments: Abdomen soft, nontender, incision healing well. No erythema or drainage or discharge. Fundal Exam Fundus: Below Umbilicus and Firm Extremities Exam Extremity Exam: Normal; negative Calf Tenderness Comment: Bilateral 1+ lower extremity edema, stable Skin Exam Skin Exam: Normal Psychiatric Exam Psychiatric Exam: Normal DetailedPsychiatric Exam Psych Exam: Normal Affect, Normal Thougth Process, Cooperative, Good Insight and Good Judgement Results Hemoglobin/Hematocrit: Hgb 7.9 g/dL (11.2-15.7) L D 04/13/20 06:28 Hct 25.0 % (36.0-46.0) L D 04/13/20 06:28 Abnormal Lab Findings: Abnormal Labs 04/11/20 04/13/20 05:05 06:28 WBC 11.31 H RBC 3.65 L 2.78 L Hgb 10.5 L 7.9 L D Hct 32.1 L 25.0 L D MCHC 31.6 L RDW 11.6 L Absolute Neutrophils 9.14 H
--- NOTE | 2020-04-14 09:31 | DSE_ITS ---
Date of service: 04/14/20 Time of Service: 09:31 DS: Diagnosis Discharge Diagnosis (1) Status post primary low transverse section: Status: Acute Discharge Plan Disposition Patient Disposition: HOME Condition: Good Discharge Details Reason For Visit: RULE OUT LABOR Admit Date/Time: 04/11/20 07:27 Admit Provider: Luz Marina Fitzpatrick Attending Provider: Luz Marina Fitzpatrick Primary Care Provider: Unknown,Unknown Hospital Course Hospital Course: Patient had been admitted to the hospital at term with spontaneous rupture of membranes, not in labor. She received misoprostol for cervical ripening and subsequently had onset of labor. She had epidural for pain control and augmentation of labor with Pitocin. She arrested her labor at 5 cm with cervical dilation with no change for greater than 5 hours. MD service asked to consult at this point. Due to her arrest of labor, decision was made for primary section. She underwent primary low transverse section for delivery of a viable male weighing 8 pounds 4 ounces with Apgars 9 and 9 in the persistent proximal transverse position and body cord x2. She had uncomplicated postoperative course and was discharged home postoperative day #2, ambulating, tolerating regular diet and oral pain medication with stable vital signs. She is breast-feeding her and pumping. Home Meds and New Rx's Prescriptions: New ibuprofen 800 mg tablet 800 mg PO Q8H PRNQty: 30 RF: 1 docusate sodium [Colace] 100 mg capsule 100 mg PO BID Qty: 20 RF: 0 hydrocodone-acetaminophen [[place]] 5-325 mg tablet 1 tab PO Q6H PRNQty: 10 RF: 0 No Action maternity belt 1 unit miscellaneous DIRECTED Qty: 1 RF: 0 ferrous sulfate 325 mg (65 mg iron) tablet,delayed release (DR/EC) 325 mg PO DAILY Qty: 60 RF: 2 albuterol sulfate [ProAir HFA] 90 mcg/actuation HFA aerosol inhaler 2 puff Inhalation ONCE PRN (Reason: asthma) Qty: 8.5 RF: 5 hydroxyzine pamoate [Vistaril] 25 mg capsule 50 mg PO QHS Qty: 20 RF: 0 epinephrine [EpiPen 2-Sesar] 0.3 MG/0.3 ML auto-injector 0.3 mg IJ DIRECTED PRN (Reason: impending anaphylaxis) Qty: 1 RF: 0 Discharge Instructions Additional Instructions: Follow-up in women's wellness in 1 to 2 weeks. Pelvic rest for 6 weeks. Stand Alone Forms: BC Discharge Instruc Activity:: Activity as Tolerated Equipment/Supplies:: No Equipment Needed Diet:: As Tolerated Discharge Orders Discharge Orders: Discharge Order (Routine); Ordered 04/14/20 Ordered By: Hilda Valentino OB:DS Summary Contraception Discussed Contraception Discussed: Yes, Gender-Baby A: Male weight: 8 lb 3.572 oz Status at Discharge Functional status at discharge: independent ambulation Overall status at discharge: patient is back to baseline Mental Status: mental status grossly normal Speech and Movement: speech and movement normal Mood: congruent mood Affect: normal affect Exam Physical Exam Vital signs: Temp Pulse Resp BP Pulse Ox 97.7 F 92 H 18 113/72 99 04/14/20 07:51 04/14/20 07:51 04/14/20 07:51 04/14/20 07:51 04/14/20 07:51 Constitutional Comments: See physical examination from progress note dated 04/14/2020. [facility] Medical History Abdominal pain Acute bronchiolitis due to respiratory syncytial virus (RSV) (03/24/12) ADHD (attention deficit hyperactivity disorder) Anaphylactic reaction 2017 - lip swelling, face swelling ER - allergy testing no trigger identified - has epi pen Arrested labor Body mass index, pediatric, 85th percentile to less than 95th percentile for age (03/29/14) Concern about STD in female without diagnosis Daytime sleepiness Depression Encounter for IUD removal Kyleena IUD inserted 06/14/2019. Removed 07/15/2019 at patient's request secondary to bleeding and stated desire to become . Patient declined alternative contraception. Encounter for smoking cessation counseling Exercise-induced asthma Family history of thyroid disease Lactose intolerance (10/25/15) Learning difficulty 504 plan Nasal congestion Patient desires 07/15/2019. Patient requested IUD to be removed. Rx for vitamins initiated. Smoker quit 10/04/19 URI (upper respiratory infection) Surgical History History of appendectomy [facility] 10/20/18 Status post primary low transverse section Family History Mother Essential hypertension Healthy adult Hypothyroid Father Healthy adult Asthma Other Personal history of malignant neoplasm paternal aunts-breast, maternal Asthma mat uncle, mat aunt, MGM Sister Asthma Social History Smoking/Tobacco Use Status: Current every day Tobacco Type: e-cigarettes Smoking risk assessment performed?: Yes Alcohol Intake: former Details: says she has stopped since she might be Drug use: Current Sobriety Substance use type: former substance user and marijuana Do you feel safe at home: Yes Do you feel safe in your relationship?: Yes Victim of physical abuse: No Victim of emotional abuse: No Victim of sexual abuse: No Female Reproductive History Menstrual Age of Menarche: 11 control method: none History History 1 Para 0 Hx # Term Pregnancies 0 Multiple births 0 Hx # Pregnancies 0 Ectopic pregnancies 0 AB induced 0 Hx Number of Living Children 0 AB spontaneous 0 DS: Data Vitals/I&O Vitals and I&O: Vital Signs Temperature 97.7 F 04/14/20 07:51 Pulse 92 H 04/14/20 07:51 Pulse Rhythm Regular 04/14/20 07:51 Respiratory Rate 18 04/14/20 07:51 Respiratory Depth Normal 04/14/20 00:28 Blood Pressure 113/72 04/14/20 07:51 Blood Pressure Mean 85 04/14/20 07:51 Pulse Oximetry 99 04/14/20 07:51 Oxygen Delivery Method Room Air 04/12/20 07:03 Oxygen Flow Rate 0 04/12/20 07:03 Pain Level 1 04/14/20 07:51 Intake & Output 04/13/20 04/13/20 04/14/20 11:59 23:59 11:59 Intake Total 1496 / 1496 1000 / 1000 Output Total 500 / 500 Balance 996 / 996 1000 / 1000 Intake: IV 946 / 946 1000 / 1000 Oral 550 / 550 Output: Urine 500 / 500 Other: Urine Color Yellow
== END 2020-04-14 14:39 | disposition home or self-care (01) | DRG 788 ==
PROVIDERS: Obstetrics & Gynecology; Admitting Provider Advanced Practice Midwife; Visit Provider Advanced Practice Midwife
PROC: (CPT 59514; principal; 2020-04-12 07:30)
DX: O99.334 Smoking (tobacco) complicating childbirth (principal); O62.1 Secondary uterine inertia; Z37.0 Single live birth; O99.344 Other mental disorders complicating childbirth; O99.52 Diseases of the respiratory system complicating childbirth; F32.9 Major depressive disorder, single episode, unspecified; Z3A.39 39 weeks gestation of pregnancy; F17.290 Nicotine dependence, other tobacco product, uncomplicated; J45.909 Unspecified asthma, uncomplicated; F90.9 Attention-deficit hyperactivity disorder, unspecified type; Z11.59 Encounter for screening for other viral diseases
CPT/HCPCS: 59514; 36415; 82803; 85027; 86850; 86900; 86901; 99253; U0003; 85025; 87081; J0456; J0690; J1885; J2405; J3010; J3490

== ENCOUNTER 2020-04-15 13:20 | Outpatient (CLI) | payer MEDICAID, SELFPAY ==
--- NOTE | 2020-04-15 13:35 | NUR.NOTE ---
Pt arrived for her appt late due to snowy road conditions. She states she does not want the depo shot at this time. She is concerned about gaining weight. Educated on risks and benefits of getting shot vs not . She verb understanding with tb and states she does not want it today. Dr. Valentino notified. Nursing Note:
== END 2020-04-15 13:47 | disposition home or self-care (01) ==
LOC: BCD 13:20 → OBS 13:22
PROVIDERS: Visit Provider Obstetrics & Gynecology
DX: Z30.013 Encounter for initial prescription of injectable contraceptive (principal); Z53.9 Procedure and treatment not carried out, unspecified reason

== ENCOUNTER 2020-05-23 15:37 | Outpatient (REF) | payer MEDICAID, SELFPAY ==
[2020-05-24 15:23] LABS: Chlamydia Result Negative (Negative); GC Result Negative (Negative)
== END 2020-05-23 15:38 | disposition home or self-care (01) ==
LOC: LBN 15:37
PROVIDERS: Visit Provider Obstetrics & Gynecology
DX: N89.8 Other specified noninflammatory disorders of vagina (principal)
CPT/HCPCS: 87491; 87591; 87480; 87510; 87660

== ENCOUNTER 2020-05-26 20:33 | Emergency (ER) | payer MEDICAID, SELFPAY ==
[2020-05-26 20:39] VITALS: BP 122/77; PULSE 95; RESP 18; TEMP 36.6; O2SAT 99
--- NOTE | 2020-05-26 20:39 | ED.GENADUL_ITS ---
Discharge Plan Disposition Patient Disposition: HOME Condition: Good Discharge Details Clinical Impression: UTI (urinary tract infection), Vaginal discharge Primary Care Provider: Unknown,Unknown ED Provider: Hilaria Dowd Home Meds and New Rx's Prescriptions: New cephalexin [Keflex] 500 mg capsule 500 mg PO BID 6 Days Qty: 12 RF: 0 Continued albuterol sulfate [ProAir HFA] 90 mcg/actuation HFA aerosol inhaler 2 puff Inhalation ONCE PRN (Reason: asthma) Qty: 8.5 RF: 5 epinephrine [EpiPen 2-Sesar] 0.3 MG/0.3 ML auto-injector 0.3 mg IJ DIRECTED PRN (Reason: impending anaphylaxis) Qty: 1 RF: 0 Discharge Instructions Instructions: Cephalexin (By mouth), Magnesium Citrate (By mouth), Urinary Tract Infection in Women (ED) Additional Instructions: Encourage water intake. Your Urinalysis is concerning for urinary tract infection. Please take the Keflex as prescribed. Even if symptoms please complete the entire course. Your STD screening is pending. We will contact you with any positive results. Please keep your upcoming appointment with [facility] for further and discuss your options for control. Please use condoms when you are sexually active. Presenting home with a bottle of magnesium citrate for constipation. Please use half a bottle tonight. If unsuccessful having a bowel movement, you can have tomorrow. If you develop fever/chills, flank pain, nausea, vomiting, severe abdominal pain or other new/worsening symptoms please seek care urgently once again. Referrals: Hilda Valentino DO [OSTEOPATHIC DOCTOR] - Medical Decision Making Patient is a 19-year-old female presenting today with chief complaint of dysuria, increased frequency and urgency. She reports that she noted symptoms initiallyat 0800 this morning when she awoke. Denies any fevers or chills. States that she is having some back discomfort but indicates the low central back. No flank pain. Denies any nausea or vomiting. Reports that she has not had a bowel movement in 2 days. Has been using stool softeners to help with this. Also reports she has been having malodorous thick vaginal discharge. Patient is 1 month , delivered via without complication. She reports that she has been sexually active and is not using any control. New sexual partner, unknown STI exposure. On exam, patient appears nontoxic. No CVA tenderness. Abdomen is soft, nontender with no peritoneal findings. Vaginal exam is concerning for thick, malodorous vaginal discharge. No cervical motion tenderness. Vaginal pathology screening and GC/committee testing has been sent. Patient does have a plan for IUD insertion next week. She and I did discuss STD risks as well as contraception at length. Also concerned potential UTI. Will obtain UA. Exam is not consistent with PID. Patient does not appear septic. No CVA tenderness to suggest pyelonephritis. Initial UA is heavily contaminated. Patient is given second sample. Vaginal pathology screening is negative. Repeat UA is significant for moderate blood, moderate leukocyte esterase, moderate bacteria few epithelial cells. This has reflex to culture. Due to these findings, she is in agreement for symptoms, I did order this urinary tract treated with Keflex. She will be given the first dose next night. Patient is requesting more aggressive for her constipation as she has been having discomfort when Straining to have a bowel movement. We did discuss options of treatment. We will discharged home with mag citrate. I advised that she only has half a bottle today. She has an appointment next week with women's wellness. She and I had a lengthy discussion regarding the importance of safe sex practices. At this point, we will hold off on treatment for possible STI until results have returned. Strict return precautions were discussed. All the questions and concerns were addressed in agreement with plan. HPI General Mode of arrival: ambulatory . Date/Time Provider Initiated Documentation: 05/26/20 20:39 . Limitations to Documentation: no limitations . Information obtained by: patient and RN notes reviewed . History of Present Illness 19 year old F presents to the emergency department with the chief complaint of dysuria, increased frequency and urgency, described as moderate, with intensity rated at 7. Quality is described as burning, and is localized to the genitals. Patient reports no radiation. Patient started experiencing this hour(s) (0800) and it has been constant. No relieving factors improve symptom(s), No exacerbating factors reported . Patient notes denies chest pain, cough, fever/chills, loss of appetite, nausea/vomiting and shortness of breath. Patient did receive the following treatments prior to arrival, none Related Data Home Medications Medication Instructions Recorded Confirmed epinephrine [EpiPen 2-Sesar] 0.3 mg IJ DIRECTED PRN #1 10/14/17 05/26/20 auto.injct albuterol sulfate 90 mcg/actuation 2 puff INHALATION ONCE PRN #8.5 g 03/15/20 05/26/20 aerosol inhaler cephalexin [Keflex] 500 mg PO BID 6 Days #12 cap 05/26/20 Previous Rx's Medication Instructions Recorded epinephrine [EpiPen 2-Sesar] 0.3 mg IJ DIRECTED PRN #1 10/14/17 auto.injct albuterol sulfate 90 mcg/actuation 2 puff INHALATION ONCE PRN #8.5 g 03/15/20 aerosol inhaler cephalexin [Keflex] 500 mg PO BID 6 Days #12 cap 05/26/20 Allergies Allergy/AdvReac Type Severity Reaction Status Date / Time dog dander Allergy Severe Verified 05/26/20 20:44 house dust mite Allergy Severe Verified 05/26/20 20:44 Pertussis Vaccines AdvReac Intermediate hives/SOB Unverified 05/26/20 20:44 tetanus and diphtheria AdvReac Intermediate hives/SOB Unverified 05/26/20 20:44 toxoids General CLARKE: 4 Review of Systems Constitutional Constitutional: Reports as per HPI, Denies chills, Denies fever(s) and Denies poor appetite Cardiovascular Cardiovascular: Denies chest pain Respiratory Respiratory: Denies cough Gastrointestinal Gastrointestinal: Denies abdominal pain, Denies change in bowel habits, Denies nausea and Denies vomiting Genitourinary Genitourinary: Reports as per HPI Musculoskeletal Musculoskeletal: Reports as per HPI and Reports back pain (low back pain) Integumentary/Breasts Skin/Breast: Reports as per HPI and Denies rash [facility] Medical History Abdominal pain Acute bronchiolitis due to respiratory syncytial virus (RSV) (03/24/12) ADHD (attention deficit hyperactivity disorder) Anaphylactic reaction 2018 - lip swelling, face swelling ER - allergy testing no trigger identified - has epi pen Arrested labor Body mass index, pediatric, 85th percentile to less than 95th percentile for age (03/29/14) Concern about STD in female without diagnosis Daytime sleepiness Depression Encounter for IUD removal Kyleena IUD inserted 06/14/2019. Removed 07/15/2019 at patient's request secondary to bleeding and stated desire to become . Patient declined alternative contraception. Encounter for smoking cessation counseling Exercise-induced asthma Family history of thyroid disease Lactose intolerance (10/25/15) Learning difficulty 504 plan Nasal congestion Patient desires 07/15/2019. Patient requested IUD to be removed. Rx for vitamins initiated. Smoker quit 10/04/19 URI (upper respiratory infection) Surgical History History of appendectomy REPLACED BY [facility] 10/20/18 Status post primary low transverse section Family History Mother Essential hypertension Healthy adult Hypothyroid Father Healthy adult Asthma Other Personal history of malignant neoplasm paternal aunts-breast, maternal Asthma mat uncle, mat aunt, MGM Sister Asthma Social History Smoking/Tobacco Use Status: Current every day Tobacco Type: e-cigarettes Smoking risk assessment performed?: Yes Alcohol Intake: former Details: says she has stopped since she might be Drug use: Current Sobriety Substance use type: former substance user and marijuana Do you feel safe at home: Yes Do you feel safe in your relationship?: Yes Victim of physical abuse: No Victim of emotional abuse: No Victim of sexual abuse: No Female Reproductive History Menstrual Age of Menarche: 11 control method: none History History 2 1 Para 1 Hx # Term Pregnancies 1 Multiple births 0 Hx # Pregnancies 0 Ectopic pregnancies 0 AB induced 0 Hx Number of Living Children 1 AB spontaneous 0 Past Pregnancies Del. Date GA/Weeks # Outcome Route Wgt Sex Labor Lgth Anesthes ia Location [facility] 04/12/20 38 No Successful 3685.438 g Male hilda valentino Exam Const General: cooperative, healthy appearing, comfortable, no acute distress, well developed and well groomed Nutritional Appearance: average body habitus and well nourished Orientation: alert and awake Resp Effort & Inspection: normal respiratory effort and no respiratory distress Auscultation: clear to auscultation bilaterally, no rales, no rhonchi and no wheezes Cardio Rate: regular rate Rhythm: regular rhythm Heart Sounds: S1 normal and S2 normal GI Inspection: normal to inspection Palpation: soft, no hepatosplenomegaly, not firm, no guarding, not rigid and nontender External Female Exam: normal external appearance Speculum Exam - Vagina: normal appearance of the vagina and abnormal vaginal discharge (thick) malodorous and yellow Speculum Exam - Cervix: normal appearance of the cervix Bimanual Exam- Vagina & Uterus: normal bimanual exam, normal palpation, normal palpation and no cervical motion tenderness Bimanual Exam- Adnexa, other: normal adnexae Back/Spine/Pelvis Back: no CVA tenderness Skin General skin exam: no rashes or lesions noted Trauma: no lacerations or abrasions Neuro General: patient alert and patient awake Cognition: normal cognition Speech: speech normal Gait: normal gait Psych Appearance: grossly normal and well kempt Mental Status: mental status grossly normal Speech and Movement: speech and movement normal
[2020-05-26 21:40] LABS: Bilirubin Negative (Negative); Blood Large (Negative); Clarity Cloudy (Clear); Glucose Negative (Negative); Ketones Negative (Negative); Leukocyte Esterase Large (Negative); Nitrite Negative (Negative); Specific Gravity 1.025 (1.005-1.025); Urobilinogen 0.2 EU/dL (Up TO 0.2)
[2020-05-26 21:48] LABS: Bacteria Many HPF (Negative); C & S Indicated? No/Sq. Contamination; Casts Negative LPF (Negative); Crystals Negative HPF (Negative); Epithelial Cells Many HPF (Negative); Mucus Negative (Negative); RBC >50 HPF (0-2); WBC >50 HPF (0-5)
[2020-05-26 22:37] LABS: Bilirubin Negative (Negative); Blood Moderate (Negative); Clarity Cloudy (Clear); Glucose Negative (Negative); Ketones Negative (Negative); Leukocyte Esterase Moderate (Negative); Nitrite Negative (Negative); Specific Gravity 1.015 (1.005-1.025); Urobilinogen 0.2 EU/dL (Up TO 0.2)
[2020-05-26 22:46] LABS: Bacteria Moderate HPF (Negative); C & S Indicated? Yes; Casts Negative LPF (Negative); Crystals Negative HPF (Negative); Epithelial Cells Few HPF (Negative); Mucus Negative (Negative); RBC >50 HPF (0-2); WBC >50 HPF (0-5)
[2020-05-26] MEDS: Cephalexin 500 MG CAP 1000 MG PO (23:27)
[2020-05-26 23:28] VITALS: BP 110/73; PULSE 76; RESP 15; O2SAT 97
[2020-05-26] MEDS: Magnesium Citrate 300 ML BTL PO (23:28)
[2020-05-29 14:41] LABS: Chlamydia Result Negative (Negative); GC Result Negative (Negative)
== END 2020-05-26 23:29 | disposition home or self-care (01) ==
PROVIDERS: Emergency Provider Physician Assistant
DX: O86.20 Urinary tract infection following delivery, unspecified (principal); N89.8 Other specified noninflammatory disorders of vagina; K59.00 Constipation, unspecified
CPT/HCPCS: 81025; 87077; 87491; 87591; 99283; 81003; 81015; 87086; 87186; 87480; 87510; 87660

== ENCOUNTER 2020-07-23 21:05 | Emergency (ER) | payer MEDICAID, SELFPAY ==
[2020-07-23 21:10] VITALS: BP 133/70; PULSE 78; RESP 18; TEMP 36.7; O2SAT 100
[2020-07-23 21:36] LABS: Bilirubin Negative (Negative); Blood Negative (Negative); Clarity Clear (Clear); Glucose Negative (Negative); Ketones Negative (Negative); Leukocyte Esterase Trace (Negative); Nitrite Negative (Negative); Specific Gravity 1.025 (1.005-1.025); Urobilinogen 0.2 EU/dL (Up TO 0.2)
--- NOTE | 2020-07-23 21:39 | W.ED.GENAD ---
Discharge Plan Disposition Patient Disposition: HOME Condition: Stable Discharge Details Clinical Impression: Gastroenteritis Primary Care Provider: None,None ED Provider: Echo Partida Home Meds and New Rx's Prescriptions: New dicyclomine 20 mg tablet 20 mg PO TID PRN (Reason: abdominal discomfort) Qty: 10 RF: 0 promethazine 25 mg tablet 25 mg PO TID PRN (Reason: nausea and vomiting) Qty: 10 RF: 0 No Action albuterol sulfate [ProAir HFA] 90 mcg/actuation HFA aerosol inhaler 2 puff Inhalation ONCE PRN (Reason: asthma) Qty: 8.5 RF: 5 epinephrine [EpiPen 2-Sesar] 0.3 MG/0.3 ML auto-injector 0.3 mg IJ DIRECTED PRN (Reason: impending anaphylaxis) Qty: 1 RF: 0 Discharge Instructions Instructions: Gastroenteritis (ED) Additional Instructions: Follow up with primary care provider in 3-5 days. Return to ED sooner if any worsening pain, fever, vomiting, or concerns. Increase oral fluids. Please take Tylenol or Ibuprofen with food every 4-6 hours as needed for pain and swelling. Take medications as directed. Medical Decision Making 19-year-old female presents to the ER chief complaint of left upper quadrant abdominal pain which radiates into her left flank. She reports started 2 days ago associated with nausea, diarrhea. No vomiting. She is 4 months status post , is not breast-feeding. She states that approximately 1 month ago she was recently treated for possible chlamydial/gonorrhea infection with oral antibiotics. Surgical history includes cholecystectomy and , past medical history ADHD depression, she denies any illicit drugs or alcohol. Negative urine test. Urinalysis, CBC, CMP, lipase and CT abdomen pelvis ordered. She had a negative gonorrhea chlamydia swab on May 26 of this year. Differential diagnosis includes but not limited to kidney stone, GERD, gastroenteritis, UTI, pyelonephritis, Ovarian cyst, STD. COMPARISON: CT ABDOMEN PELVIS W 06/23/2019 11:18 AM FINDINGS: Lungs: Lung bases are clear. Liver: Focal hypoattenuation along the anterior falciform ligament compatible with focal fatty infiltration. No mass. Gallbladder and bile ducts: Gallbladder is nondistended limiting evaluation. No focal inflammatory change in the gallbladder fossa. No biliary dilation. Pancreas: No pancreatic ductal dilation or peripancreatic inflammatory stranding. Spleen: No splenomegaly. No mass. Adrenal glands: No adrenal mass. Kidneys and ureters: No mass. No hydronephrosis. Ureters normal in course and caliber. Stomach and bowel: Mild mural thickening of the gastric fundus and proximal body, however incompletely distended limiting evaluation. Also noted is mild mural/fold thickening of the proximal to mid small bowel, however also incompletely distended limiting evaluation. There are few of mildly fluid distended loops of small bowel within the lower abdomen measuring up to 2.6 cm in diameter, however without transition point to suggest obstruction. No focal colonic mural thickening or significant pericolonic inflammatory stranding. No bowel obstruction. Appendix: Appendix is surgically absent. Intraperitoneal space: Trace low-attenuation free fluid in the dependent pelvis, likely physiologic. Otherwise no significant free fluid in the abdomen. No pneumoperitoneum. Vasculature: Within normal limits. No abdominal aortic aneurysm or dissection. Lymph nodes: No pathologically enlarged lymph nodes. Urinary bladder: Bladder is incompletely distended limiting evaluation with mild diffuse bladder wall thickening. Reproductive: Uterus is retroflexed. Bones/joints: Small ovoid sclerotic focus in the left femoral neck most compatible with benign enostosis. No acute fracture. Soft tissues: Trace/small fat containing umbilical hernia. IMPRESSION: 1. Mild mural thickening of the gastric fundus and proximal gastric body as well as the proximal to mid small bowel, however incompletely distended limiting evaluation. Could represent changes of underdistention versus acute gastroenteritis. Correlate with symptoms. 2. Few mildly fluid distended loops of small bowel within the lower abdomen, however without transition or other evidence of obstruction. Could represent mild ileus. Correlate clinically. 3. Mild nonfocal bladder wall thickening is suspected to represent changes of incomplete distension, however clinical correlation to exclude cystitis may be considered. Thank you for allowing us to participate in the care of your patient. Dictated and Authenticated by: Bhanu Olivares MD Discussed CT results and lab results with patient who verbalized understanding. At this time I do feel it is unlikely the patient has small bowel obstruction or ileus due to her symptoms, no vomiting. She reports 2 episodes of diarrhea daily. She is able to tolerate small amounts of food. No vomiting here in the department. Labs are largely unremarkable there is trace leukocytes and culture is pending for the urinalysis at this time. I did discuss strict return instructions and home care with patient. Will prescribe her dicyclomine and Phenergan for nausea I did discuss strict return instructions verbalized understanding HPI General Mode of arrival: ambulatory. Date/Time Provider Initiated Documentation: 07/23/20 21:26. Limitations to Documentation: no limitations. Information obtained by: patient. HPI Narrative: 19-year-old female presents to the ER chief complaint of left upper quadrant abdominal pain which radiates into her left flank. She reports started 2 days ago associated with nausea, diarrhea. No vomiting. She is 4 months status post , is not breast-feeding. She states that approximately 1 month ago she was recently treated for possible chlamydial/gonorrhea infection with oral antibiotics. Surgical history includes cholecystectomy and , past medical history ADHD depression, she denies any illicit drugs or alcohol. Related Data Home Medications Medication Instructions Recorded Confirmed epinephrine [EpiPen 2-Sesar] 0.3 mg IJ DIRECTED PRN #1 10/14/17 07/23/20 auto.injct albuterol sulfate 90 mcg/actuation 2 puff INHALATION ONCE PRN #8.5 g 03/15/20 07/23/20 aerosol inhaler dicyclomine 20 mg PO TID PRN #10 tab 07/23/20 promethazine 25 mg PO TID PRN #10 tab 07/23/20 Previous Rx's Medication Instructions Recorded epinephrine [EpiPen 2-Sesar] 0.3 mg IJ DIRECTED PRN #1 10/14/17 auto.injct albuterol sulfate 90 mcg/actuation 2 puff INHALATION ONCE PRN #8.5 g 03/15/20 aerosol inhaler dicyclomine 20 mg PO TID PRN #10 tab 07/23/20 promethazine 25 mg PO TID PRN #10 tab 07/23/20 Allergies Allergy/AdvReac Type Severity Reaction Status Date / Time dog dander Allergy Severe Verified 07/23/20 21:13 house dust mite Allergy Severe Verified 07/23/20 21:13 Pertussis Vaccines AdvReac Intermediate hives/SOB Unverified 07/23/20 21:13 tetanus and diphtheria AdvReac Intermediate hives/SOB Unverified 07/23/20 21:13 toxoids General Stated Complaint: Abd Prob CLARKE: 3 Review of Systems Narrative: Constitutional: Negative for weight loss, alert and oriented, well groomed, normal body habitus, appears comfortable. HEENT: Denies trauma, headaches, blurry vision, nasal discharge, sore throat, trouble swallowing. Chest: Denies chest pain, palpitations, irregular rhythm, hypertension. Respiratory: Denies Shortness of breath, cough, hemoptysis. GI: Denies constipation. Positive left upper quadrant abdominal pain radiating to back, nausea, diarrhea. : Denies dysuria, hematuria, rectal bleeding. Positive left-sided flank pain. Neuro: Denies dizziness, blurry vision, weakness, syncope, headache or facial numbness. Hematologic: Denies easy bruising, intolerance to heat or cold, hair loss. [facility] Medical History Abdominal pain Acute bronchiolitis due to respiratory syncytial virus (RSV) (03/24/12) ADHD (attention deficit hyperactivity disorder) Anaphylactic reaction 2017 - lip swelling, face swelling ER - allergy testing no trigger identified - has epi pen Arrested labor Body mass index, pediatric, 85th percentile to less than 95th percentile for age (03/29/14) Concern about STD in female without diagnosis Daytime sleepiness Depression Encounter for IUD removal Kyleena IUD inserted 06/14/2019. Removed 07/15/2019 at patient's request secondary to bleeding and stated desire to become . Patient declined alternative contraception. Encounter for smoking cessation counseling Exercise-induced asthma Family history of thyroid disease Lactose intolerance (10/25/15) Learning difficulty 504 plan Nasal congestion Patient desires 07/15/2019. Patient requested IUD to be removed. Rx for vitamins initiated. Smoker quit 10/04/19 URI (upper respiratory infection) Surgical History History of appendectomy [facility] 10/20/18 Status post primary low transverse section Family History Mother Essential hypertension Healthy adult Hypothyroid Father Healthy adult Asthma Other Personal history of malignant neoplasm paternal aunts-breast, maternal Asthma mat uncle, mat aunt, MGM Sister Asthma Social History Smoking/Tobacco Use Status: Current every day Tobacco Type: e-cigarettes Smoking risk assessment performed?: Yes Alcohol Intake: former Details: says she has stopped since she might be Drug use: Current Sobriety Substance use type: former substance user and marijuana Do you feel safe at home: Yes Do you feel safe in your relationship?: Yes Victim of physical abuse: No Victim of emotional abuse: No Victim of sexual abuse: No Female Reproductive History Menstrual Age of Menarche: 11 control method: none History History 1 Para 1 Hx # Term Pregnancies 1 Multiple births 0 Hx # Pregnancies 0 Ectopic pregnancies 0 AB induced 0 Hx Number of Living Children 1 AB spontaneous 0 Past Pregnancies Del. Date GA/Weeks # Outcome Route Wgt Sex Labor Lgth Anesthesia Location Prov Complic 04/12/20 38 No Successful 3685.438 g Male ekta segundo Exam Narrative Exam Narrative: Constitutional: Alert and oriented x3. Appears stated age. Normal body habitus. Head: Normocephalic, no trauma. Eyes: Pupils PERRLA, Red reflex noted, EOM's intact. Eyelids symmetrical without lesions, discharge, or swelling. ENT: Bilateral TM's WNL, External ear normal to inspection, no mastoid TTP, swelling, or erythema, Nasal turbinates WNL, no nasal discharge. Normal dentition, Posterior pharynx WNL, no exudate. Chest: RRR, Normal S1, S2, distal pulses intact. Resp: Lungs clear to auscultation bilaterally, no wheezes, rales, or rhonchi. Musculoskeletal: Normal gait, 5/5 strength to all four extremities. Abdomen: Soft, nondistended, tender to palpation left upper quadrant, left lower quadrant positive left CVA tenderness. Completely healed horizontal scar noted suprapubic area. No surrounding erythema, swelling or drainage. Skin: No suspicious rashes or lesions. Capillary refill less than 2 sec. Neurologic: Cranial nerves II-XII intact. Alert and oriented x 3. DTR's intact. Hematologic/Lymphatic: No ecchymosis, no lymphadenopathy. Course Vital Signs Vital signs: Vital Signs Temperature 36.7 C 07/23/20 21:10 Pulse 78 07/23/20 21:10 Respiratory Rate 18 07/23/20 21:10 Blood Pressure 133/70 07/23/20 21:10 Pulse Oximetry 100 07/23/20 21:10 Temperature 36.7 C 07/23/20 21:10 Temperature Source Skin 07/23/20 21:10 Pulse 78 07/23/20 21:10 Respiratory Rate 18 07/23/20 21:10 Respiratory Effort Non-Labored 07/23/20 21:14 Blood Pressure 133/70 07/23/20 21:10 Pulse Oximetry 100 07/23/20 21:10 Pain Level 7 07/23/20 21:10 Lab/Test Results Lab/Test Results: POC- Test(urine) Negative
[2020-07-23 21:50] LABS: Bacteria Negative HPF (Negative); C & S Indicated? Yes; Casts Negative LPF (Negative); Crystals Negative HPF (Negative); Epithelial Cells Rare HPF (Negative); Mucus Negative (Negative); RBC Negative HPF (0-2)
[2020-07-23] MEDS: Normal Saline 1,000 ML 1000 ML IV (21:56)
[2020-07-23] MEDS: Ondansetron 4 MG/2 ML VIAL IVP (21:57)
[2020-07-23 22:06] LABS: Abs Immature Grans 0.01 10^3/uL (0.0-0.06); Absolute Basophil Count 0.04 10^3/uL (0.0-0.2); Absolute Eosinophil Count 0.31 10^3/uL (0.0-0.7); Absolute Lymphocyte Count 2.64 10^3/uL (1.2-3.4); Absolute Monocyte Count 0.43 10^3/uL (0.1-0.8); Basophils % 0.6; HCT 37.3 % (36.0-46.0); HGB 11.9 g/dL (11.2-15.7); Immature Grans % 0.2; Lymphocytes % 42.4; MCHC 31.9 % (32.0-36.0); MCV 84.8 fL (80-95); Monocytes % 6.9; Neutrophils % 44.9; Nucleated RBC 0 %; Platelet Count 236 10^3/uL (130-400); RDW 13.8 % (11.7-14.6); RDW-SD 42.7 fL; WBC 6.23 10^3/uL (4.4-10.8)
[2020-07-23 22:25] LABS: ALT 35 U/L (14-59); AST 15 U/L (15-37); Albumin 3.7 g/dL (3.4-5.0); Alkaline Phosphatase 76 U/L (46-116); Anion Gap 9.7 mmol/L (3-11); BUN 12 mg/dL (7-18); Bilirubin, Total 0.4 mg/dL (0.2-1.0); CO2 25.3 mmol/L (21.0-32.0); CREATININE 0.9 mg/dL (0.55-1.02); Calcium 8.6 mg/dL (8.5-10.1); Chloride 107 mmol/L (98-107); Glucose 95 mg/dL (74-106); Lipase 122 U/L (73-393); Magnesium 2.1 mg/dL (1.8-2.4); Sodium 142 mmol/L (136-145)
[2020-07-23] MEDS: Omnipaque 350 MG/ML 100 ML BTL IJ (22:29)
[2020-07-23] MEDS: Normal Saline - Diluent 50 ML VIAL IV (22:30)
--- NOTE | 2020-07-23 22:45 | DI.CT_ITS ---
EXAM: CT ABDOMEN PELVIS W CLINICAL HISTORY: LUQ Abd Pain, LLQ. TECHNIQUE: Imaging Protocol: Axial computed tomography images with coronal and sagittal reformatted images were created and reviewed CONTRAST MATERIAL: Intravenous: Omnipaque 350 94cc Oral: None COMPARISON: CT CT ABDOMEN PELVIS W from 06/23/[address] CHEST PE CTA from 02/10/2020also CT scan 06/23/2019 FINDINGS: VISUALIZED LUNG BASES: No nodules nor pleural effusions evident. ABDOMEN: There is no ascites. LIVER: There are no focal hepatic lesions evident . GALLBLADDER/BILIARY: No obvious gallbladder pathology. CBD is not dilated. PANCREAS: No evidence of pancreatic mass nor dilatation of the pancreatic duct. SPLEEN: Spleen is not enlarged. No obvious intrasplenic lesions. Splenic and portal veins are paten t. ADRENALS: There are no significant adrenal masses. KIDNEYS:No cysts evident. No solid renal masses. No calculi nor hydronephrosis.. ABDOMINAL AORTA: Abdominal aorta is not enlarged. LYMPH NODES:There is no retroperitineal nor paraaortic adenopathy. ABDOMINAL WALL/GI: There is a small fat containing umbilical hernia. No bowel obstruction. PELVIS: GI: Appendix is not visualized.No evidence of sigmoid diverticulitis. LYMPH NODES: There is no intrapelvic nor inguinal adenopathy. REPRODUCTIVE: The previously present IUD seen on CT scan of June 2019 has been removed. There is no free fluid in the cul-de-sac at this time (as was previously present on CT scan June 2019). Ovarie s appear age-appropriate. URINARY BLADDER: No calculi nor obvious masses evident OSSEOUS: No significant osseous lesions. IMPRESSION: 1. No specific findings in the abdomen pelvis. 2. The previously present intrauterine IUD seen on CT scan of June 2019 is no longer seen. The prev iously present fluid in the cul-de-sac is also no longer seen. There is presently no evidence of asc ites. 3. Small fat containing umbilical hernia is again noted. This does not contain bowel loops and there is no evidence of bowel obstruction, free air, nor abscess. 4. No significant osseous lesions identified. RADIATION DOSE DELIVERED: 777.44mGy.cm Total DLP DATA REPOSITORY: All CT scans at this facility are submitted to the National Radiology Data Registry (NRDR) Dose Index Registry (DIR) with the [employer] (A[employer]). RADIATION OPTIMIZATION: All CT scans at this facility use at least one of these dose optimization te chniques: automated exposure control; mA and/or kV adjustment per patient size (includes targeted exa ms where dose is matched to clinical indication); or iterative reconstruction.
[2020-07-23 23:05] VITALS: BP 125/74; PULSE 71; RESP 16; O2SAT 99
--- NOTE | 2020-07-23 23:20 | DI.VRAD_ITS ---
PROCEDURE INFORMATION: Exam: CT Abdomen And Pelvis With Contrast Exam date and time: 07/23/2020 10:40 PM Age: 19 years old Clinical indication: Abdominal pain; Localized; Left upper quadrant (luq); Prior surgery; Surgery date: 1-6 months; Surgery type: mar 2020. Previous appendectomy; Patient HX: Luq pain x3 days, worsening pain. Diarrhea and nausea TECHNIQUE: Imaging protocol: Computed tomography of the abdomen and pelvis with contrast. Radiation optimization: All CT scans at this facility use at least one of these dose optimization techniques: automated exposure control; mA and/or kV adjustment per patient size (includes targeted exams where dose is matched to clinical indication); or iterative reconstruction. Contrast material: OMNIPAQUE 350; Contrast volume: 94 ml; Contrast route: INTRAVENOUS (IV); COMPARISON: CT ABDOMEN PELVIS W 06/23/2019 11:18 AM FINDINGS: Lungs: Lung bases are clear. Liver: Focal hypoattenuation along the anterior falciform ligament compatible with focal fatty infiltration. No mass. Gallbladder and bile ducts: Gallbladder is nondistended limiting evaluation. No focal inflammatory change in the gallbladder fossa. No biliary dilation. Pancreas: No pancreatic ductal dilation or peripancreatic inflammatory stranding. Spleen: No splenomegaly. No mass. Adrenal glands: No adrenal mass. Kidneys and ureters: No mass. No hydronephrosis. Ureters normal in course and caliber. Stomach and bowel: Mild mural thickening of the gastric fundus and proximal body, however incompletely distended limiting evaluation. Also noted is mild mural/fold thickening of the proximal to mid small bowel, however also incompletely distended limiting evaluation. There are few of mildly fluid distended loops of small bowel within the lower abdomen measuring up to 2.6 cm in diameter, however without transition point to suggest obstruction. No focal colonic mural thickening or significant pericolonic inflammatory stranding. No bowel obstruction. Appendix: Appendix is surgically absent. Intraperitoneal space: Trace low-attenuation free fluid in the dependent pelvis, likely physiologic. Otherwise no significant free fluid in the abdomen. No pneumoperitoneum. Vasculature: Within normal limits. No abdominal aortic aneurysm or dissection. Lymph nodes: No pathologically enlarged lymph nodes. Urinary bladder: Bladder is incompletely distended limiting evaluation with mild diffuse bladder wall thickening. Reproductive: Uterus is retroflexed. Bones/joints: Small ovoid sclerotic focus in the left femoral neck most compatible with benign enostosis. No acute fracture. Soft tissues: Trace/small fat containing umbilical hernia. IMPRESSION: 1. Mild mural thickening of the gastric fundus and proximal gastric body as well as the proximal to mid small bowel, however incompletely distended limiting evaluation. Could represent changes of underdistention versus acute gastroenteritis. Correlate with symptoms. 2. Few mildly fluid distended loops of small bowel within the lower abdomen, however without transition or other evidence of obstruction. Could represent mild ileus. Correlate clinically. 3. Mild nonfocal bladder wall thickening is suspected to represent changes of incomplete distension, however clinical correlation to exclude cystitis may be considered. Dictated and Authenticated by: Bhanu Olivares MD. Ordering:CHEO Dodge MD
--- NOTE | 2020-07-23 23:49 | NUR.NOTE ---
Put a copy of referral for a PCP in Care Management's box. Nursing Note:
== END 2020-07-23 23:52 | disposition home or self-care (01) ==
PROVIDERS: Emergency Provider Registered Nurse Emergency
DX: K52.9 Noninfective gastroenteritis and colitis, unspecified (principal)
CPT/HCPCS: 80053; 81025; 83690; 96361; 96374; 99285; 74177; 81003; 81015; 83735; 85025; 87086; 99283; J2405; J3490

== ENCOUNTER 2020-08-09 13:44 | Emergency (ER) | payer MEDICAID, SELFPAY ==
[2020-08-09 13:49] VITALS: BP 106/76; PULSE 88; RESP 18; TEMP 36.7; O2SAT 100
--- NOTE | 2020-08-09 13:54 | ED.GENADUL_ITS ---
Discharge Plan Disposition Patient Disposition: HOME Condition: Improving Discharge Details Clinical Impression: Left wrist sprain Primary Care Provider: None,None ED Provider: Kristofer Hartley Home Meds and New Rx's Prescriptions: Continued fluoxetine 20 mg capsule 20 mg PO DAILY Qty: 30 RF: 2 albuterol sulfate [ProAir HFA] 90 mcg/actuation HFA aerosol inhaler 2 puff Inhalation ONCE PRN (Reason: asthma) Qty: 8.5 RF: 5 epinephrine [EpiPen 2-Sesar] 0.3 MG/0.3 ML auto-injector 0.3 mg IJ DIRECTED PRN (Reason: impending anaphylaxis) Qty: 1 RF: 0 dicyclomine 20 mg tablet 20 mg PO TID PRN (Reason: abdominal discomfort) Qty: 10 RF: 0 promethazine 25 mg tablet 25 mg PO TID PRN (Reason: nausea and vomiting) Qty: 10 RF: 0 Discharge Instructions Instructions: Wrist Sprain (ED) Additional Instructions: Continue to apply ice to area to reduce discomfort. Wear wrist splint for 5 to 7 days time while awake and out of bed. Follow-up with regular doctor if not improving in 1 week. May use Tylenol and/or ibuprofen as needed for discomfort Medical Decision Making Healthy 19-year-old female presents with left base of thumb, left wrist pain that began after washing a large number of dishes in a repetitive motion. She also notes she had a distant fall and injured that hand this winter. Referred for x-ray to rule out underlying bony abnormality. No acute findings. Will place in wrist splint with thumb spica. Patient understands conservative management of wrist strain. She is stable and appropriate for discharge to home. HPI General Mode of arrival: ambulatory . Date/Time Provider Initiated Documentation: 08/09/20 13:48 . Limitations to Documentation: no limitations . Information obtained by: patient . History of Present Illness 19 year old F presents to the emergency department with the chief complaint of L wrist pain, described as moderate, Quality is described as dull, and is localized to the left and upper extremity. Patient started experiencing this hour(s) and it has been constant. No relieving factors improve symptom(s), No exacerbating factors reported . Patient notes no other symptoms.. Patient did receive the following treatments prior to arrival, none Related Data Home Medications Medication Instructions Recorded Confirmed epinephrine [EpiPen 2-Sesar] 0.3 mg IJ DIRECTED PRN #1 10/14/17 08/09/20 auto.injct albuterol sulfate 90 mcg/actuation 2 puff INHALATION ONCE PRN #8.5 g 03/15/20 08/09/20 aerosol inhaler dicyclomine 20 mg PO TID PRN #10 tab 07/23/20 08/09/20 promethazine 25 mg PO TID PRN #10 tab 07/23/20 08/09/20 fluoxetine 20 mg capsule 20 mg PO DAILY #30 cap 07/27/20 08/09/20 Previous Rx's Medication Instructions Recorded epinephrine [EpiPen 2-Sesar] 0.3 mg IJ DIRECTED PRN #1 10/14/17 auto.injct albuterol sulfate 90 mcg/actuation 2 puff INHALATION ONCE PRN #8.5 g 03/15/20 aerosol inhaler dicyclomine 20 mg PO TID PRN #10 tab 07/23/20 promethazine 25 mg PO TID PRN #10 tab 07/23/20 fluoxetine 20 mg capsule 20 mg PO DAILY #30 cap 07/27/20 Allergies Allergy/AdvReac Type Severity Reaction Status Date / Time dog dander Allergy Severe Verified 08/09/20 13:52 house dust mite Allergy Severe Verified 08/09/20 13:52 Pertussis Vaccines AdvReac Intermediate hives/SOB Unverified 08/09/20 13:52 tetanus and diphtheria AdvReac Intermediate hives/SOB Unverified 08/09/20 13:52 toxoids General Stated Complaint: Orthopedic CLARKE: 4 Review of Systems Narrative: Began after increased use. Notes distant fall. No other injury. [facility] Medical History Abdominal pain Acute bronchiolitis due to respiratory syncytial virus (RSV) (03/24/12) ADHD (attention deficit hyperactivity disorder) Anaphylactic reaction 2017 - lip swelling, face swelling ER - allergy testing no trigger identified - has epi pen Arrested labor Body mass index, pediatric, 85th percentile to less than 95th percentile for age (03/29/14) Concern about STD in female without diagnosis Daytime sleepiness Depression Encounter for IUD removal Kyleena IUD inserted 06/14/2019. Removed 07/15/2019 at patient's request secondary to bleeding and stated desire to become . Patient declined alternative contraception. Encounter for smoking cessation counseling Exercise-induced asthma Family history of thyroid disease Lactose intolerance (10/25/15) Learning difficulty 504 plan Nasal congestion Patient desires 07/15/2019. Patient requested IUD to be removed. Rx for vitamins initiated. Smoker quit 10/04/19 URI (upper respiratory infection) Surgical History History of appendectomy [facility] 10/20/18 Status post primary low transverse section Family History Mother Essential hypertension Healthy adult Hypothyroid Father Healthy adult Asthma Other Personal history of malignant neoplasm paternal aunts-breast, maternal Asthma mat uncle, mat aunt, MGM Sister Asthma Social History Smoking/Tobacco Use Status: Current every day Tobacco Type: e-cigarettes Smoking risk assessment performed?: Yes Alcohol Intake: current Alcohol Intake frequency: a few times a month Details: says she has stopped since she might be Drug use: Current Sobriety Substance use type: former substance user and marijuana Do you feel safe at home: Yes Do you feel safe in your relationship?: Yes Victim of physical abuse: No Victim of emotional abuse: No Victim of sexual abuse: No Female Reproductive History Menstrual Age of Menarche: 11 control method: none History History 1 Para 1 Hx # Term Pregnancies 1 Multiple births 0 Hx # Pregnancies 0 Ectopic pregnancies 0 AB induced 0 Hx Number of Living Children 1 AB spontaneous 0 Past Pregnancies Del. Date GA/Weeks # Outcome Route Wgt Sex Labor Lgth Anesthes ia Location [facility] 04/12/20 38 No Successful 3685.438 g Male formerly [facility], [facility] Exam Narrative Exam Narrative: GEN: awake, alert, oriented 3. Pleasant, well groomed, interactive. HEAD: Normocephalic, atraumatic ENT: Mucous membranes moist, oropharynx unremarkable, External ear exam unremarkable EYES: PERRL, EOMI Extremity: Left wrist with tenderness in the anatomic snuffbox. No other significant findings. Neuro: Grossly normal neurologic exam, conversant, interactive. Psych: Speech fluent, thoughts congruent, affect normal Course Vital Signs Vital signs: Vital Signs Temperature 36.7 C 08/09/20 13:49 Pulse 88 08/09/20 13:49 Respiratory Rate 18 08/09/20 13:49 Blood Pressure 106/76 08/09/20 13:49 Pulse Oximetry 100 08/09/20 13:49 Temperature 36.7 C 08/09/20 13:49 Temperature Source Skin 08/09/20 13:49 Pulse 88 08/09/20 13:49 Respiratory Rate 18 08/09/20 13:49 Respiratory Effort Non-Labored 08/09/20 13:51 Blood Pressure 106/76 08/09/20 13:49 Blood Pressure Position Sitting 08/09/20 13:49 Pulse Oximetry 100 08/09/20 13:49 Oxygen Delivery Method Room Air 08/09/20 13:49 Oxygen Flow Rate 0 08/09/20 13:49 Pain Level 7 08/09/20 13:49
--- NOTE | 2020-08-09 14:10 | DI.RAD_ITS ---
EXAM: XR WRIST LT COMPLETE CLINICAL HISTORY: Pain, fall. TECHNIQUE: 2D digital imaging was performed. COMPARISON: No exams were available for comparison FINDINGS: There is no evidence of acute fracture or carpal dislocation. No significant ulnar variance. Bone d ensity is normal. IMPRESSION: DATA REPOSITORY: RADIATION DOSE DELIVERED:
[2020-08-09 14:36] VITALS: BP 106/76; PULSE 88; RESP 18; TEMP 36.7; O2SAT 100
== END 2020-08-09 14:37 | disposition home or self-care (01) ==
PROVIDERS: Emergency Provider Emergency Medicine
DX: S63.592A Other specified sprain of left wrist, initial encounter (principal); X50.3XXA Overexertion from repetitive movements, initial encounter; Y93.G1 Activity, food preparation and clean up
CPT/HCPCS: 29125; 99283; 73110; 99282

== ENCOUNTER 2020-11-04 13:03 | Emergency (ER) | payer MEDICAID, SELFPAY ==
[2020-11-04 13:21] VITALS: BP 106/69; PULSE 95; RESP 18; TEMP 36.6; O2SAT 97
--- NOTE | 2020-11-04 13:22 | W.ED.GENAD ---
Discharge Plan Disposition Patient Disposition: HOME Condition: Stable Discharge Details Clinical Impression: Vaginal bleeding Primary Care Provider: None,None ED Provider: Edinson oCte Home Meds and New Rx's Prescriptions: Continued albuterol sulfate [ProAir HFA] 90 mcg/actuation HFA aerosol inhaler 2 puff Inhalation ONCE PRN (Reason: asthma) Qty: 8.5 RF: 5 epinephrine [EpiPen 2-Sesar] 0.3 MG/0.3 ML auto-injector 0.3 mg IJ DIRECTED PRN (Reason: impending anaphylaxis) Qty: 1 RF: 0 Discharge Instructions Instructions: Abnormal (Dysfunctional) Uterine Bleeding (ED) Additional Instructions: Your laboratory values do not reveal any signs of anemia, your vital signs reveal that you are hemodynamically stable. Please watch for new or worsening symptoms and return to the ER for any concerns. Otherwise as we discussed please reach out to women's health on Friday. I do recommend outpatient reevaluation, potential change in your hormone therapy, ultrasound, etc. it may be needed to further evaluate and treat your symptoms. Discharge Data Discharge Date/Time-TO BE ENTERED AT DEPARTURE: 11/04/20 15:12 Medical Decision Making This is a 20-year-old female presenting for vaginal bleeding daily for 1 month. Clinically she appears well, nontoxic, using her cell phone without difficulty. She does not appear pale, vital signs are hemodynamically stable. She is neurologically intact. No petechiae like rash. patient ambulates without difficulty. Plan is to obtain CBC to evaluate H&H, CMP, urinalysis and test. Patient remains hemodynamically stable under my care. Laboratory values reveal a white blood cell count of 5.06 hemoglobin 13.2 hematocrit 41.0, platelet count 242. Electrolytes unremarkable, creatinine 0.9 with a GFR greater than 60, urinalysis trace ketones, moderate blood, negative for obvious UTI. negative. No evidence of anemia. Patient was given a liter of IV fluid. Upon reevaluation we discussed her laboratory values and work-up here in the ER. Pelvic examination deferred, complete this to be reasonable as she do not believe it would change her disposition. While observed in the ER she has not bled through any tampons. She appears well, nontoxic, hemodynamically stable. Unfortunately is Friday morning and I cannot assess further with ultrasound today or tomorrow. I will set her up on our care management list to help expedite outpatient woman's health follow-up, potential pelvic exam, ultrasound, change in contraceptive, etc. Patient encouraged to watch for new or worsening symptoms and return to the ER for any concerns. Standard discharge and return precautions given. This documentation was generated using [employer] system, please disregard any oddities of phrase or misspellings. Medical Records Medical records reviewed: Yes I reviewed the patient's medical records. Lab Data Lab results reviewed: Yes I reviewed the patient's lab results. Labs: Laboratory Tests Range/Units 11/04/20 11/04/20 11/04/20 13:20 13:26 14:15 WBC (4.4-10.8) 10^3/uL RBC (3.93-5.22) 10^6/uL Hgb (11.2-15.7) g/dL Hct (36.0-46.0) % MCV (80-95) fL MCH (27.0-33.0) pg MCHC (32.0-36.0) % RDW (11.7-14.6) % Plt Count (130-400) 10^3/uL MPV (8.0-11.0) fL Immature Gran % Neutrophils % Lymphocytes % Monocytes % Eosinophils % Basophils % Nucleated RBC % % Absolute Neutrophils (1.2-6.7) 10^3/uL Absolute Lymphocytes (1.2-3.4) 10^3/uL Absolute Monocytes (0.1-0.8) 10^3/uL Absolute Eosinophils (0.0-0.7) 10^3/uL Absolute Basophils (0.0-0.2) 10^3/uL Sodium (136-145) mmol/L 142 Potassium (3.5-5.1) mmol/L 3.7 Chloride (98-107) mmol/L 106 Carbon Dioxide (21.0-32.0) mmol/L 27.9 Anion Gap (3-11) mmol/L 8.1 BUN (7-18) mg/dL 8 Creatinine (0.55-1.02) mg/dL 0.9 Estimated GFR/1.73 m2 (mL/min/1.73m2) >= 60.00 Glucose (74-106) mg/dL 87 Calcium (8.5-10.1) mg/dL 8.5 Total Bilirubin (0.2-1.0) mg/dL 1.3 H AST (15-37) U/L 12 L ALT (14-59) U/L 17 Alkaline Phosphatase (46-116) U/L 75 Total Protein (6.4-8.2) g/dL 7.1 Albumin (3.4-5.0) g/dL 4.0 Urine Color (Yellow) Yellow Urine Clarity (Clear) Clear Urine pH (5-8) 6.0 Ur Specific [place] (1.005-1.025) >= 1.030 H Urine Protein (Negative) mg/dL 30 H Urine Ketones (Negative) mg/dL Trace H Urine Blood (Negative) Moderate H Urine Nitrite (Negative) Negative Urine Bilirubin (Negative) Small H Urine Urobilinogen (Up TO 0.2) EU/dL 1.0 H Ur Leukocyte Esterase (Negative) Negative Urine RBC (0-2) HPF 0-2 Urine WBC (0-5) HPF 3-5 Ur Epithelial Cells (Negative) HPF Moderate Urine Crystals (Negative) HPF Negative Urine Bacteria (Negative) HPF Few Urine Casts (Negative) LPF Negative Urine Mucus (Negative) Moderate Urine Other (Negative) Rare Renal Ur Culture Indicated? No/Sq. Contamination Urine Glucose (Negative) mg/dL Negative Chlamydia DNA Probe Cancelled Chlamydia/GC DNA Source Cancelled N.gonorrhoeae DNA Probe Cancelled Range/Units 11/04/20 14:15 WBC (4.4-10.8) 10^3/uL 5.06 RBC (3.93-5.22) 10^6/uL 4.72 Hgb (11.2-15.7) g/dL 13.2 Hct (36.0-46.0) % 41.0 MCV (80-95) fL 86.9 MCH (27.0-33.0) pg 28.0 MCHC (32.0-36.0) % 32.2 RDW (11.7-14.6) % 13.1 Plt Count (130-400) 10^3/uL 242 MPV (8.0-11.0) fL 9.7 Immature Gran % 0.2 Neutrophils % 47.0 Lymphocytes % 36.8 Monocytes % 9.1 Eosinophils % 6.3 Basophils % 0.6 Nucleated RBC % % 1 Absolute Neutrophils (1.2-6.7) 10^3/uL 2.38 Absolute Lymphocytes (1.2-3.4) 10^3/uL 1.86 Absolute Monocytes (0.1-0.8) 10^3/uL 0.46 Absolute Eosinophils (0.0-0.7) 10^3/uL 0.32 Absolute Basophils (0.0-0.2) 10^3/uL 0.03 Sodium (136-145) mmol/L Potassium (3.5-5.1) mmol/L Chloride (98-107) mmol/L Carbon Dioxide (21.0-32.0) mmol/L Anion Gap (3-11) mmol/L BUN (7-18) mg/dL Creatinine (0.55-1.02) mg/dL Estimated GFR/1.73 m2 (mL/min/1.73m2) Glucose (74-106) mg/dL Calcium (8.5-10.1) mg/dL Total Bilirubin (0.2-1.0) mg/dL AST (15-37) U/L ALT (14-59) U/L Alkaline Phosphatase (46-116) U/L Total Protein (6.4-8.2) g/dL Albumin (3.4-5.0) g/dL Urine Color (Yellow) Urine Clarity (Clear) Urine pH (5-8) Ur Specific [place] (1.005-1.025) Urine Protein (Negative) mg/dL Urine Ketones (Negative) mg/dL Urine Blood (Negative) Urine Nitrite (Negative) Urine Bilirubin (Negative) Urine Urobilinogen (Up TO 0.2) EU/dL Ur Leukocyte Esterase (Negative) Urine RBC (0-2) HPF Urine WBC (0-5) HPF Ur Epithelial Cells (Negative) HPF Urine Crystals (Negative) HPF Urine Bacteria (Negative) HPF Urine Casts (Negative) LPF Urine Mucus (Negative) Urine Other (Negative) Ur Culture Indicated? Urine Glucose (Negative) mg/dL Chlamydia DNA Probe Chlamydia/GC DNA Source N.gonorrhoeae DNA Probe HPI General Mode of arrival: ambulatory. Date/Time Provider Initiated Documentation: 11/04/20 13:05. Limitations to Documentation: no limitations. Information obtained by: patient. HPI Narrative: This is a 20-year-old female, denies any significant past medical history, presents to the ER today for vaginal bleeding. Patient states that she gave approximately 7 months ago, subsequently has been treated with Depo injection. She had been on this medication previously and responded well. She states over the past month she has had daily vaginal bleeding, going through which she describes is anywhere between a few to several tampons daily. She denies any other easy bruising or bleeding. She states occasionally she feels generalized weakness, tingling in her extremities although worse in her legs compared to her arms. She denies recent illness or trauma. Denies headache, visual changes, neck pain, chest pain, shortness of breath, abdominal pain, nausea, vomiting, vaginal discharge, numbness, focal weakness. She has not been evaluated in the last month for this. Patient is sexually active with one partner, no concern or exposure for STD, and tells me that she tested negative for GC and chlamydia approximately 1 month ago when evaluated at [facility]. Patient has no additional questions or concerns at this time. Related Data Home Medications Medication Instructions Recorded Confirmed epinephrine [EpiPen 2-Sesar] 0.3 mg IJ DIRECTED PRN #1 10/14/17 11/04/20 auto.injct albuterol sulfate 90 mcg/actuation 2 puff INHALATION ONCE PRN #8.5 g 03/15/20 11/04/20 aerosol inhaler Previous Rx's Medication Instructions Recorded epinephrine [EpiPen 2-Sesar] 0.3 mg IJ DIRECTED PRN #1 10/14/17 auto.injct albuterol sulfate 90 mcg/actuation 2 puff INHALATION ONCE PRN #8.5 g 03/15/20 aerosol inhaler Allergies Allergy/AdvReac Type Severity Reaction Status Date / Time dog dander Allergy Severe Verified 11/04/20 13:27 house dust mite Allergy Severe Verified 11/04/20 13:27 Pertussis Vaccines AdvReac Intermediate hives/SOB Unverified 11/04/20 13:27 tetanus and diphtheria AdvReac Intermediate hives/SOB Unverified 11/04/20 13:27 toxoids General CLARKE: 4 Review of Systems Constitutional Constitutional: Denies headache(s) ENT Ears, Nose, Mouth, and Throat: Denies headache(s) Cardiovascular Cardiovascular: Denies chest pain and Denies dyspnea Respiratory Respiratory: Denies cough and Denies dyspnea Gastrointestinal Gastrointestinal: Denies abdominal pain, Denies nausea and Denies vomiting Genitourinary Genitourinary: Reports abnormal vaginal bleeding and Denies vaginal discharge Musculoskeletal Musculoskeletal: Denies back pain Integumentary/Breasts Skin/Breast: Denies rash Neurologic Neurologic: Denies headache(s) [facility] Medical History Abdominal pain Acute bronchiolitis due to respiratory syncytial virus (RSV) (03/24/12) ADHD (attention deficit hyperactivity disorder) Anaphylactic reaction 2018 - lip swelling, face swelling ER - allergy testing no trigger identified - has epi pen Arrested labor Body mass index, pediatric, 85th percentile to less than 95th percentile for age (03/29/14) Concern about STD in female without diagnosis Daytime sleepiness Depression Encounter for IUD removal Kyleena IUD inserted 06/14/2019. Removed 07/15/2019 at patient's request secondary to bleeding and stated desire to become . Patient declined alternative contraception. Encounter for smoking cessation counseling Exercise-induced asthma Family history of thyroid disease Lactose intolerance (10/25/15) Learning difficulty 504 plan Nasal congestion Patient desires 07/15/2019. Patient requested IUD to be removed. Rx for vitamins initiated. Smoker quit 10/04/19 URI (upper respiratory infection) Surgical History History of appendectomy [facility] 10/20/18 Status post primary low transverse section Family History Mother Essential hypertension Healthy adult Hypothyroid Father Healthy adult Asthma Other Personal history of malignant neoplasm paternal aunts-breast, maternal Asthma mat uncle, mat aunt, MGM Sister Asthma Social History Smoking/Tobacco Use Status: Current every day Tobacco Type: e-cigarettes Smoking risk assessment performed?: Yes Alcohol Intake: current Alcohol Intake frequency: a few times a month Details: says she has stopped since she might be Drug use: Current Sobriety Substance use type: former substance user and marijuana Do you feel safe at home: Yes Do you feel safe in your relationship?: Yes Victim of physical abuse: No Victim of emotional abuse: No Victim of sexual abuse: No Female Reproductive History Menstrual Age of Menarche: 11 control method: none History History 1 Para 1 Hx # Term Pregnancies 1 Multiple births 0 Hx # Pregnancies 0 Ectopic pregnancies 0 AB induced 0 Hx Number of Living Children 1 AB spontaneous 0 Past Pregnancies Del. Date GA/Weeks # Outcome Route Wgt Sex Labor Lgth Anesthesia Location Prov Complic 04/12/20 38 No Successful 3685.438 g Male [place] Exam Const General: cooperative, healthy appearing, comfortable and no acute distress Orientation: alert and awake HENMT Head: normal to inspection, normocephalic and atraumatic Face and sinus: normal facial exam Mouth: moist mucous membranes Eyes General: appearance normal, both eyes and all related structures Alignment and Position: alignment normal Periorbital: periorbital findings normal Eyelids: eyelids normal Conjunctivae: conjunctivae normal Sclera: sclerae normal Cornea: corneas normal EOM: EOM intact bilaterally Neck Neck: normal visual inspection, full ROM, trachea midline and supple Resp Effort & Inspection: normal respiratory effort and able to speak in complete sentences Auscultation: clear to auscultation bilaterally Cardio Rate: regular rate Rhythm: regular rhythm GI Inspection: normal to inspection Palpation: soft, not firm, no guarding, no pulsatile masses and nontender Auscultation: normal bowel sounds General: deferred Back/Spine/Pelvis Back: No back tenderness Skin General skin exam: no rashes or lesions noted Neuro General: patient alert, patient awake, moves all extremities and no focal motor deficits Cognition: normal cognition Speech: speech normal Gait: normal gait Motor: muscle tone normal throughout Sensory Exam: no sensory deficits noted Extrem General: normal to inspection, full ROM and capillary refill normal Psych Appearance: grossly normal Mental Status: mental status grossly normal
[2020-11-04 14:10] LABS: Bilirubin Small (Negative); Blood Moderate (Negative); Clarity Clear (Clear); Glucose Negative (Negative); Ketones Trace mg/dL (Negative); Leukocyte Esterase Negative (Negative); Nitrite Negative (Negative); Specific Gravity >= 1.030 (1.005-1.025)
[2020-11-04 14:18] LABS: Abs Immature Grans 0.01 10^3/uL (0.0-0.06); Absolute Basophil Count 0.03 10^3/uL (0.0-0.2); Absolute Eosinophil Count 0.32 10^3/uL (0.0-0.7); Absolute Lymphocyte Count 1.86 10^3/uL (1.2-3.4); Absolute Monocyte Count 0.46 10^3/uL (0.1-0.8); Absolute Neutrophil Count 2.38 10^3/uL (1.2-6.7); Basophils % 0.6; Eosinophils % 6.3; HGB 13.2 g/dL (11.2-15.7); Immature Grans % 0.2; Lymphocytes % 36.8; MCHC 32.2 % (32.0-36.0); MCV 86.9 fL (80-95); MPV 9.7 fL (8.0-11.0); Monocytes % 9.1; Nucleated RBC 1 %; Platelet Count 242 10^3/uL (130-400); RBC 4.72 10^6/uL (3.93-5.22); RDW 13.1 % (11.7-14.6); RDW-SD 41.6 fL; WBC 5.06 10^3/uL (4.4-10.8)
[2020-11-04 14:21] LABS: Epithelial Cells Moderate HPF (Negative); Other Cells Rare Renal (Negative); RBC 0-2 HPF (0-2)
[2020-11-04 14:22] LABS: Bacteria Few HPF (Negative); C & S Indicated? No/Sq. Contamination; Casts Negative LPF (Negative); Crystals Negative HPF (Negative); Mucus Moderate (Negative)
[2020-11-04 14:32] LABS: ALT 17 U/L (14-59); AST 12 U/L (15-37); Alkaline Phosphatase 75 U/L (46-116); Anion Gap 8.1 mmol/L (3-11); BUN 8 mg/dL (7-18); Bilirubin, Total 1.3 mg/dL (0.2-1.0); CO2 27.9 mmol/L (21.0-32.0); CREATININE 0.9 mg/dL (0.55-1.02); Calcium 8.5 mg/dL (8.5-10.1); Chloride 106 mmol/L (98-107); Glucose 87 mg/dL (74-106); Potassium 3.7 mmol/L (3.5-5.1); Sodium 142 mmol/L (136-145); Total Protein 7.1 g/dL (6.4-8.2)
--- NOTE | 2020-11-04 14:38 | NUR.NOTE ---
Nursing Note: Referral to Care Management to establish care with PCP in routine time. Referral faxed to [facility] within 2 weeks for vaginal bleeding. Marilee Chang
[2020-11-04 15:07] VITALS: BP 118/71; PULSE 77; TEMP 36.4; O2SAT 99
[2020-11-04 15:12] VITALS: BP 118/71; PULSE 77; RESP 18; TEMP 36.4; O2SAT 99
== END 2020-11-04 15:12 | disposition home or self-care (01) ==
PROVIDERS: Emergency Provider Physician Assistant
DX: N93.9 Abnormal uterine and vaginal bleeding, unspecified (principal)
CPT/HCPCS: 36415; 80053; 81025; 87491; 87591; 99283; 81003; 81015; 85025

== ENCOUNTER 2020-12-04 16:07 | Emergency (ER) | payer MEDICAID, SELFPAY ==
[2020-12-04 16:09] VITALS: BP 127/70; PULSE 98; TEMP 37.1; O2SAT 98
[2020-12-04 16:28] LABS: Bilirubin Negative (Negative); Blood Negative (Negative); Clarity Sl Cloudy (Clear); Glucose Negative (Negative); Ketones Trace mg/dL (Negative); Leukocyte Esterase Negative (Negative); Nitrite Negative (Negative); Specific Gravity 1.025 (1.005-1.025); Urobilinogen 0.2 EU/dL (Up TO 0.2); pH 6.5 (5-8)
--- NOTE | 2020-12-04 17:21 | W.ED.GENAD ---
Discharge Plan Disposition Patient Disposition: HOME Condition: Stable Discharge Details Clinical Impression: Vomiting, Right knee sprain Primary Care Provider: None,None ED Provider: Echo Partida Home Meds and New Rx's Prescriptions: No Action albuterol sulfate [ProAir HFA] 90 mcg/actuation HFA aerosol inhaler 2 puff Inhalation ONCE PRN (Reason: asthma) Qty: 8.5 RF: 5 epinephrine [EpiPen 2-Sesar] 0.3 MG/0.3 ML auto-injector 0.3 mg IJ DIRECTED PRN (Reason: impending anaphylaxis) Qty: 1 RF: 0 Discharge Instructions Instructions: Knee Sprain (ED), Acute Nausea and Vomiting (ED) Additional Instructions: At this time the labs and urine show no evidence of infection. According to the urine and blood tests there is no evidence for at this time. Follow up with primary care provider in 3-5 days. Return to ED sooner if any worsening or concerns. Increase oral fluids. Please take Tylenol or Ibuprofen with food every 4-6 hours as needed for pain and swelling. Take nausea medications as directed 20 minutes before meals up to 3 times daily as needed. Stand Alone Forms: Work Release Discharge Data Discharge Date/Time-TO BE ENTERED AT DEPARTURE: 12/04/20 18:35 Medical Decision Making 20-year-old female presents to the ER chief complaint of 1 week of nausea vomiting lower abdominal cramping and heartburn. She denies any diarrhea or dysuria or problems urinating. She also reports right knee pain after a twisting type injury. She is concerned that she might be early last normal menstrual period was beginning of November she is not currently taking any control and is sexually active is requesting a blood test for . Patient has a past medical history depression, asthma surgical history includes appendectomy and . Informed by nursing staff that patient is declining to have imaging done on her knee due to need for her to go to work. I did discuss the lab test that have resulted with her which shows no indication for inflammation or infection nor at this time. And there is no obvious deformity or significant swelling noted on her knee exam. Feel it is appropriate to forego imaging at this time. CBC largely unremarkable no leukocytosis serum hCG negative lipase within normal limit no evidence of UTI on urinalysis. Discussed home care for knee sprain and follow-up with PCP and strict return instructions patient verbalized understanding. Patient was given 3 Zofran tablets to go. This text was generated using [employer] dictation system, please disregard any oddities of phrase or misspellings. HPI General Mode of arrival: ambulatory. Date/Time Provider Initiated Documentation: 12/04/20 16:26. Limitations to Documentation: no limitations. Information obtained by: patient and RN notes reviewed. HPI Narrative: 20-year-old female presents to the ER chief complaint of 1 week of nausea vomiting lower abdominal cramping and heartburn. She denies any diarrhea or dysuria or problems urinating. She also reports right knee pain after a twisting type injury. She is concerned that she might be early last normal menstrual period was beginning of November she is not currently taking any control and is sexually active is requesting a blood test for . Patient has a past medical history depression, asthma surgical history includes appendectomy and . Related Data Home Medications Medication Instructions Recorded Confirmed epinephrine [EpiPen 2-Sesar] 0.3 mg IJ DIRECTED PRN #1 10/14/17 12/04/20 auto.injct albuterol sulfate 90 mcg/actuation 2 puff INHALATION ONCE PRN #8.5 g 03/15/20 12/04/20 aerosol inhaler Previous Rx's Medication Instructions Recorded epinephrine [EpiPen 2-Sesar] 0.3 mg IJ DIRECTED PRN #1 10/14/17 auto.injct albuterol sulfate 90 mcg/actuation 2 puff INHALATION ONCE PRN #8.5 g 03/15/20 aerosol inhaler Allergies Allergy/AdvReac Type Severity Reaction Status Date / Time dog dander Allergy Severe Verified 12/04/20 16:14 house dust mite Allergy Severe Verified 12/04/20 16:14 Pertussis Vaccines AdvReac Intermediate hives/SOB Unverified 12/04/20 16:14 tetanus and diphtheria AdvReac Intermediate hives/SOB Unverified 12/04/20 16:14 toxoids General Stated Complaint: Abd Prob CLARKE: 3 Review of Systems Narrative: Constitutional: Negative for weight loss, alert and oriented, well groomed, normal body habitus, appears comfortable. HEENT: Denies trauma, headaches, blurry vision, nasal discharge, sore throat, trouble swallowing. Chest: Denies chest pain, palpitations, irregular rhythm, hypertension. Respiratory: Denies Shortness of breath, cough, hemoptysis. GI: Denies diarrhea, constipation. Positive lower abdominal cramping, nausea vomiting x1 week. : Denies dysuria, hematuria, flank pain, rectal bleeding. Reports no vaginal bleeding increased white thick vaginal discharge no itching. Musculoskeletal: Complaining of right knee pain since a twisting type injury. Neuro: Denies dizziness, blurry vision, weakness, syncope, headache or facial numbness. Hematologic: Denies easy bruising, intolerance to heat or cold, hair loss. [facility] Medical History Abdominal pain Acute bronchiolitis due to respiratory syncytial virus (RSV) (03/24/12) ADHD (attention deficit hyperactivity disorder) Anaphylactic reaction 2017 - lip swelling, face swelling ER - allergy testing no trigger identified - has epi pen Arrested labor Body mass index, pediatric, 85th percentile to less than 95th percentile for age (03/29/14) Concern about STD in female without diagnosis Daytime sleepiness Depression Encounter for IUD removal Kyleena IUD inserted 06/14/2019. Removed 07/15/2019 at patient's request secondary to bleeding and stated desire to become . Patient declined alternative contraception. Encounter for smoking cessation counseling Exercise-induced asthma Family history of thyroid disease Lactose intolerance (10/25/15) Learning difficulty 504 plan Nasal congestion Patient desires 07/15/2019. Patient requested IUD to be removed. Rx for vitamins initiated. Smoker quit 10/04/19 URI (upper respiratory infection) Surgical History History of appendectomy [facility] 10/20/18 Status post primary low transverse section Family History Mother Essential hypertension Healthy adult Hypothyroid Father Healthy adult Asthma Other Personal history of malignant neoplasm paternal aunts-breast, maternal Asthma mat uncle, mat aunt, MGM Sister Asthma Social History Smoking/Tobacco Use Status: Current every day Tobacco Type: e-cigarettes Smoking risk assessment performed?: Yes Alcohol Intake: current Alcohol Intake frequency: a few times a month Details: says she has stopped since she might be Drug use: Current Sobriety Substance use type: former substance user and marijuana Do you feel safe at home: Yes Do you feel safe in your relationship?: Yes Victim of physical abuse: No Victim of emotional abuse: No Victim of sexual abuse: No Female Reproductive History Menstrual Age of Menarche: 11 control method: none History History 1 Para 1 Hx # Term Pregnancies 1 Multiple births 0 Hx # Pregnancies 0 Ectopic pregnancies 0 AB induced 0 Hx Number of Living Children 1 AB spontaneous 0 Past Pregnancies Del. Date GA/Weeks # Outcome Route Wgt Sex Labor Lgth Anesthesia Location Prov Complic 04/12/20 38 No Successful 3685.438 g Male [place] Exam Narrative Exam Narrative: Constitutional: Alert and oriented x3. Appears stated age. Normal body habitus. Head: Normocephalic, no trauma. Eyes: Pupils PERRLA, Red reflex noted, EOM's intact. Eyelids symmetrical without lesions, discharge, or swelling. ENT: Bilateral TM's WNL, External ear normal to inspection, no mastoid TTP, swelling, or erythema, Nasal turbinates WNL, no nasal discharge. Normal dentition, Posterior pharynx WNL, no exudate. Chest: RRR, Normal S1, S2, distal pulses intact. Resp: Lungs clear to auscultation bilaterally, no wheezes, rales, or rhonchi. Musculoskeletal: Normal gait, 5/5 strength to all four extremities. No obvious deformity or swelling noted to the lower extremities. Abdomen: Soft, nondistended Skin: No suspicious rashes or lesions. Capillary refill less than 2 sec. Neurologic: Cranial nerves II-XII intact. Alert and oriented x 3. DTR's intact. Hematologic/Lymphatic: No ecchymosis, no lymphadenopathy. Course Vital Signs Vital signs: Vital Signs Temperature 37.1 C 12/04/20 16:09 Pulse 98 H 12/04/20 16:09 Blood Pressure 127/70 12/04/20 16:09 Pulse Oximetry 98 12/04/20 16:09 Temperature 37.1 C 12/04/20 16:09 Temperature Source Temporal Artery Scan 12/04/20 16:09 Pulse 98 H 12/04/20 16:09 Respiratory Effort Non-Labored 12/04/20 16:13 Blood Pressure 127/70 12/04/20 16:09 Blood Pressure Position Sitting 12/04/20 16:09 Pulse Oximetry 98 12/04/20 16:09 Oxygen Delivery Method Room Air 12/04/20 16:09 Oxygen Flow Rate 0 12/04/20 16:09 Pain Level 5 12/04/20 16:09 Lab/Test Results Lab/Test Results: Laboratory Tests Range/Units 12/04/20 16:15 Urine Color (Yellow) Yellow Urine Clarity (Clear) Sl Cloudy Urine pH (5-8) 6.5 Ur Specific Stewart (1.005-1.025) 1.025 Urine Protein (Negative) mg/dL Negative Urine Ketones (Negative) mg/dL Trace H Urine Blood (Negative) Negative Urine Nitrite (Negative) Negative Urine Bilirubin (Negative) Negative Urine Urobilinogen (Up TO 0.2) EU/dL 0.2 Ur Leukocyte Esterase (Negative) Negative Urine Glucose (Negative) mg/dL Negative POC Urine Test Start: 12/04/20 16:12 Freq: Status: Complete Protocol: Document 12/04/20 16:31 DEBI (Rec: 12/04/20 16:31 DEBI [id number]) Test(Urine)-POC POC- Test(urine) Negative POC- Test(urine) Negative
[2020-12-04] MEDS: Metoclopramide 10 MG/2 ML VIAL IVP (17:42)
[2020-12-04] MEDS: Normal Saline 1,000 ML 1000 ML IV (17:42)
[2020-12-04 17:53] LABS: Abs Immature Grans 0.01 10^3/uL (0.0-0.06); Absolute Basophil Count 0.03 10^3/uL (0.0-0.2); Absolute Eosinophil Count 0.17 10^3/uL (0.0-0.7); Absolute Lymphocyte Count 2.13 10^3/uL (1.2-3.4); Absolute Monocyte Count 0.42 10^3/uL (0.1-0.8); Absolute Neutrophil Count 4.06 10^3/uL (1.2-6.7); Basophils % 0.4; Eosinophils % 2.5; HCT 40.1 % (36.0-46.0); HGB 12.8 g/dL (11.2-15.7); Immature Grans % 0.1; Lymphocytes % 31.2; MCH 27.8 pg (27.0-33.0); MCHC 31.9 % (32.0-36.0); MCV 87.2 fL (80-95); MPV 10.1 fL (8.0-11.0); Monocytes % 6.2; Neutrophils % 59.6; Nucleated RBC 0 %; Platelet Count 254 10^3/uL (130-400); RDW 12.8 % (11.7-14.6); RDW-SD 40.9 fL; WBC 6.82 10^3/uL (4.4-10.8)
[2020-12-04 18:07] LABS: HCG Qual (Serum) Negative
[2020-12-04 18:09] LABS: Magnesium 2.1 mg/dL (1.8-2.4)
[2020-12-04 18:11] LABS: Lipase 85 U/L (73-393)
[2020-12-04 18:13] LABS: ALT 19 U/L (14-59); AST 12 U/L (15-37); Albumin 3.9 g/dL (3.4-5.0); Alkaline Phosphatase 72 U/L (46-116); Anion Gap 8.3 mmol/L (3-11); BUN 13 mg/dL (7-18); CO2 26.7 mmol/L (21.0-32.0); CREATININE 0.8 mg/dL (0.55-1.02); Calcium 9.2 mg/dL (8.5-10.1); Chloride 105 mmol/L (98-107); Glucose 88 mg/dL (74-106); Potassium 4.1 mmol/L (3.5-5.1); Sodium 140 mmol/L (136-145); Total Protein 7.1 g/dL (6.4-8.2)
[2020-12-04 18:27] VITALS: BP 127/70; PULSE 98; RESP 18; TEMP 37.1; O2SAT 98
== END 2020-12-04 18:35 | disposition home or self-care (01) ==
PROVIDERS: Emergency Provider Registered Nurse Emergency
DX: R11.2 Nausea with vomiting, unspecified (principal); S83.8X1A Sprain of other specified parts of right knee, initial encounter; X50.1XXA Overexertion from prolonged static or awkward postures, initial encounter
CPT/HCPCS: 80053; 81025; 83690; 96361; 96374; 99284; 81003; 83735; 84703; 85025; 99283; J2765

== ENCOUNTER 2020-12-14 08:59 | Emergency (ER) | payer MEDICAID, SELFPAY ==
[2020-12-14 09:04] VITALS: BP 119/69; PULSE 97; TEMP 36.7; O2SAT 98
--- NOTE | 2020-12-14 09:30 | ED.GENADUL_ITS ---
Discharge Plan Disposition Patient Disposition: HOME Condition: Stable Discharge Details Clinical Impression: Viral URI, Acute sinusitis Primary Care Provider: None,None ED Provider: Asuncion Car Home Meds and New Rx's Prescriptions: New amoxicillin-pot clavulanate [Augmentin] 875-125 mg tablet 1 tab PO BID 10 Days Qty: 20 RF: 0 Continued albuterol sulfate [ProAir HFA] 90 mcg/actuation HFA aerosol inhaler 2 puff Inhalation ONCE PRN (Reason: asthma) Qty: 8.5 RF: 5 epinephrine [EpiPen 2-Sesar] 0.3 MG/0.3 ML auto-injector 0.3 mg IJ DIRECTED PRN (Reason: impending anaphylaxis) Qty: 1 RF: 0 Discharge Instructions Instructions: Sinusitis (ED), Upper Respiratory Infection (ED) Additional Instructions: Your symptoms are most likely due to a viral upper respiratory tract infection or viral sinus infection. This is best treated with osyi-yga-rqtuaio medications containing nasal decongestants including DayQuil or Sudafed. You can also try an raau-bty-utuxvdr sinus rinse kit or saline nose spray. Alternate tylenol and motrin as needed and directed for pain. Drink plenty of fluids and get plenty of rest. A prescription for an antibiotic was sent electronically to your pharmacy to take as directed until finished if your symptoms do not improve or worsen as your viral infection may have turned into a bacterial infection. Follow-up with your primary care doctor in 1 week. Return to the emergency department with any worsening or new concerning symptoms. Discharge Data Discharge Physician: Asuncion Car Medical Decision Making 20-year-old female presents with nasal congestion, green nasal discharge and sore throat for the past few days. Patient appears comfortable and nontoxic. She has bilateral frontal and maxillary sinus tenderness. Minimal posterior pharyngeal erythema but no exudate, drooling, trismus, submandibular swelling or lymphadenopathy. Her abdomen is soft and nontender throughout. Suspect most likely viral URI versus sinusitis. Rapid strep negative. [place] screen negative. test negative. Patient given a dose of Motrin and Sudafed here and 1 tab of Sudafed to go. She was advised on the importance of increasing fluids, rest, alternating Tylenol Motrin, using iarl-yvh-owxolsz saline nose spray, fjqx-efw-bjxlepf nasal decongestant. Discussed that her symptoms are likely viral in nature but if they persist or worsen, may turn bacterial. A prescription for Augmentin was sent electronically to her pharmacy if symptoms worsen. Advised to follow up with the primary care doctor for re-evaluation. Usual and customary return precautions given prior to discharge. Medical Records Medical records reviewed: Yes I reviewed the patient's medical records. HPI General Mode of arrival: ambulatory . Date/Time Provider Initiated Documentation: 12/14/20 09:00 . Limitations to Documentation: no limitations . Information obtained by: patient . HPI Narrative: Pt is a 20yo F who presents to the ED with a complaint of nasal congestion, green nasal discharge and sore throat for the past 2 days. Patient states her symptoms started with a stuffy nose and then progressed to a sore throat. She states she is having pain with swallowing. She denies any known fever, chest pain, shortness of breath, vomiting or diarrhea. She does admit to intermittent upper abdominal pain but denies any at present. She states her symptoms feel similar to when she has had strep throat or mono in the past. She has not taken medication for symptoms. She is a smoker. Related Data Home Medications Medication Instructions Recorded Confirmed epinephrine [EpiPen 2-Sesar] 0.3 mg IJ DIRECTED PRN #1 10/14/17 12/14/20 auto.injct albuterol sulfate 90 mcg/actuation 2 puff INHALATION ONCE PRN #8.5 g 03/15/20 12/14/20 aerosol inhaler amoxicillin-pot clavulanate 1 tab PO BID 10 Days #20 tab 12/14/20 [Augmentin] Previous Rx's Medication Instructions Recorded epinephrine [EpiPen 2-Sesar] 0.3 mg IJ DIRECTED PRN #1 10/14/17 auto.injct albuterol sulfate 90 mcg/actuation 2 puff INHALATION ONCE PRN #8.5 g 03/15/20 aerosol inhaler amoxicillin-pot clavulanate 1 tab PO BID 10 Days #20 tab 12/14/20 [Augmentin] Allergies Allergy/AdvReac Type Severity Reaction Status Date / Time dog dander Allergy Severe Verified 12/14/20 09:08 house dust mite Allergy Severe Verified 12/14/20 09:08 Pertussis Vaccines AdvReac Intermediate hives/SOB Unverified 12/14/20 09:08 tetanus and diphtheria AdvReac Intermediate hives/SOB Unverified 12/14/20 09:08 toxoids General Stated Complaint: Sorethroat CLARKE: 4 Review of Systems All systems reviewed & are unremarkable except as noted in HPI and below Constitutional Constitutional: Reports as per HPI, Denies chills and Denies fever(s) Eyes Eyes: Denies blurry vision ENT Ears, Nose, Mouth, and Throat: Denies dizziness, Reports nasal congestion, Reports nasal discharge, Reports sore throat and Denies throat swelling Cardiovascular Cardiovascular: Denies chest pain and Denies dyspnea Respiratory Respiratory: Denies cough and Denies dyspnea Gastrointestinal Gastrointestinal: Denies abdominal pain, Denies diarrhea and Denies vomiting Genitourinary Genitourinary: Denies hematuria and Denies dysuria Musculoskeletal Musculoskeletal: Denies back pain and Denies numbness Integumentary/Breasts Skin/Breast: Denies lesions and Denies rash Neurologic Neurologic: Denies dizziness, Denies localized weakness and Denies numbness Allergic/Immunologic Allergic/Immunologic: Denies throat swelling [facility] Medical History Abdominal pain Acute bronchiolitis due to respiratory syncytial virus (RSV) (03/24/12) ADHD (attention deficit hyperactivity disorder) Anaphylactic reaction 2018 - lip swelling, face swelling ER - allergy testing no trigger identified - has epi pen Arrested labor Body mass index, pediatric, 85th percentile to less than 95th percentile for age (03/29/14) Concern about STD in female without diagnosis Daytime sleepiness Depression Encounter for IUD removal Kyleena IUD inserted 06/14/2019. Removed 07/15/2019 at patient's request secondary to bleeding and stated desire to become . Patient declined alternative contraception. Encounter for smoking cessation counseling Exercise-induced asthma Family history of thyroid disease Lactose intolerance (10/25/15) Learning difficulty 504 plan Nasal congestion Patient desires 07/15/2019. Patient requested IUD to be removed. Rx for vitamins initiated. Smoker quit 10/04/19 URI (upper respiratory infection) Surgical History History of appendectomy [facility] 10/20/18 Status post primary low transverse section Family History Mother Essential hypertension Healthy adult Hypothyroid Father Healthy adult Asthma Other Personal history of malignant neoplasm paternal aunts-breast, maternal Asthma mat uncle, mat aunt, MGM Sister Asthma Social History Smoking/Tobacco Use Status: Current every day Tobacco Type: e-cigarettes Smoking risk assessment performed?: Yes Alcohol Intake: current Alcohol Intake frequency: a few times a month Details: says she has stopped since she might be Drug use: Current Sobriety Substance use type: former substance user and marijuana Do you feel safe at home: Yes Do you feel safe in your relationship?: Yes Victim of physical abuse: No Victim of emotional abuse: No Victim of sexual abuse: No Female Reproductive History Menstrual Age of Menarche: 11 control method: none History History 1 Para 1 Hx # Term Pregnancies 1 Multiple births 0 Hx # Pregnancies 0 Ectopic pregnancies 0 AB induced 0 Hx Number of Living Children 1 AB spontaneous 0 Past Pregnancies Del. Date GA/Weeks # Outcome Route Wgt Sex Labor Lgth Anesthes ia Location Prov Complic 04/12/20 38 No Successful 3685.438 g Male [place] Exam Const General: cooperative and no acute distress HENMT Head: normal to inspection Ears: hearing grossly normal bilaterally, external ears normal and TM's normal bilaterally General nose exam: external nose normal Face and sinus: normal facial exam and sinus tenderness frontal (bilateral) and maxillary (bilateral) Mouth: oral mucosae normal, no drooling and no trismus Throat: uvula midline, no peritonsillar masses and posterior oropharynx abnormal erythema; no exudates Eyes General: appearance normal, both eyes and all related structures Pupils: PERRL EOM: EOM intact bilaterally Neck Neck: normal visual inspection and No submandibular swelling Lymphatic: no lymphadenopathy noted Chest Chest: normal inspection of the chest and no tenderness Resp Effort & Inspection: normal respiratory effort and able to speak in complete sentences Auscultation: clear to auscultation bilaterally Cardio Rate: regular rate Rhythm: regular rhythm GI Inspection: normal to inspection Palpation: soft, not firm, no hepatosplenomegaly, not rigid and nontender Auscultation: normal bowel sounds Skin General skin exam: no rashes or lesions noted Neuro General: patient alert, patient awake and patient oriented x3 Cognition: normal cognition Speech: speech normal Motor: muscle tone normal throughout Sensory Exam: no sensory deficits noted Extrem General: normal to inspection, full ROM, capillary refill normal, no calf tenderness bilaterally and no edema Psych Appearance: grossly normal Mental Status: mental status grossly normal Speech and Movement: speech and movement normal Affect: normal affect Course Vital Signs Vital signs: Vital Signs Temperature 98.1 F 12/14/20 09:04 Pulse 97 H 12/14/20 09:04 Blood Pressure 119/69 12/14/20 09:04 Pulse Oximetry 98 12/14/20 09:04 Temperature 98.1 F 12/14/20 09:04 Temperature Source Temporal Artery Scan 12/14/20 09:04 Pulse 97 H 12/14/20 09:04 Respiratory Effort Non-Labored 12/14/20 09:06 Blood Pressure 119/69 12/14/20 09:04 Blood Pressure Position Sitting 12/14/20 09:04 Pulse Oximetry 98 12/14/20 09:04 Oxygen Delivery Method Room Air 12/14/20 09:04 Oxygen Flow Rate 0 12/14/20 09:04 Pain Level 7 12/14/20 09:04 Lab/Test Results Lab/Test Results: 12/14/20 09:25 Pharynx Group A Streptococcus Culture - Pending POC- Test(urine) Negative POC Strep Test-ANAYELI(Rapid) Start: 12/14/20 09:23 Freq: Status: Active Protocol: Document 12/14/20 09:24 EC (Rec: 12/14/20 09:24 EC [id number]) Strep test-ANAYELI(Rapid)-POC POC-Strep test-ANAYELI (Rapid) Negative POC-Strep test-ANAYELI (Rapid) Negative
[2020-12-14 09:55] LABS: Mono Screening Negative (Negative)
[2020-12-14 10:25] VITALS: TEMP 36.7
[2020-12-14] MEDS: Ibuprofen 600 MG TAB PO (10:25)
== END 2020-12-14 10:35 | disposition home or self-care (01) ==
PROVIDERS: Emergency Provider Physician Assistant
DX: J02.8 Acute pharyngitis due to other specified organisms (principal); J06.9 Acute upper respiratory infection, unspecified; J01.80 Other acute sinusitis; F17.210 Nicotine dependence, cigarettes, uncomplicated
CPT/HCPCS: 36415; 81025; 87880; 99283; 86308; 87081

== ENCOUNTER 2020-12-25 20:35 | Emergency (ER) | payer MEDICAID, SELFPAY ==
[2020-12-25 20:54] VITALS: BP 114/57; PULSE 88; RESP 18; TEMP 36.4; O2SAT 99
[2020-12-25 21:47] VITALS: BP 96/62; PULSE 91; RESP 16
--- NOTE | 2020-12-25 21:56 | W.ED.GENAD ---
Discharge Plan Disposition Patient Disposition: HOME Condition: Stable Discharge Details Clinical Impression: Abdominal pain, Acute epigastric pain Primary Care Provider: None,None ED Provider: Hilaria Dowd Home Meds and New Rx's Prescriptions: Continued nicotine 21-14-7 mg/24 hr patch, TD daily, sequential See Rx Instructions transdermal .COMPLEX Qty: 56 RF: 1 C-Sourav DHA 28 mg iron-1 mg -200 mg capsule 1 cap PO DAILY Qty: 90 RF: 5 albuterol sulfate [ProAir HFA] 90 mcg/actuation HFA aerosol inhaler 2 puff Inhalation ONCE PRN (Reason: asthma) Qty: 8.5 RF: 5 epinephrine [EpiPen 2-Sesar] 0.3 MG/0.3 ML auto-injector 0.3 mg IJ DIRECTED PRN (Reason: impending anaphylaxis) Qty: 1 RF: 0 Discharge Instructions Instructions: Abdominal Pain (ED) Additional Instructions: Labs are reassuring today. As we discussed, plan for you to have a outpatient ultrasound tomorrow for further evaluation. Please encourage hydration. You may use Tylenol as needed for discomfort. Please follow up with [facility] after to discuss results. Please call tomorrow to schedule appointment. If you develop increased pain, fevers/chills, inability to stay hydrated or other new/worsening symptoms please seek care urgently once again. Referrals: Venus Sanchez MD [ [facility]FF PHYSICIAN] - Discharge Data Discharge Date/Time-TO BE ENTERED AT DEPARTURE: 12/25/20 23:28 Medical Decision Making Patient is a 20-year-old female presents today with chief complaint of abdominal cramping. Patient is admitted this week gestation. Was seen by AEROTRIANGULATION SPECIALIST on 12/21/2020 with confirmatory status. Patient is G2, P1 with no complications associated with her previous . She reports that starting this morning she is been having left upper quadrant abdominal discomfort. No nausea or vomiting. No change in appetite. Denies any change in bowel or bladder habits. No vaginal discharge or bleeding. On exam, patient appears nontoxic. Vital signs stable. Lungs are clear. No CVA tenderness. Pain is elicited with palpation over the epigastric and left upper quadrant. She denies any alcohol intake. Consider pancreatitis, gastritis or GERD. Will obtain baseline labs and treat with Tums. We do not currently have ultrasound on. Her symptoms are not worsened with food and do not involve the right side. I do not have indication to suggest acute cholecystitis. Her exam is relatively benign with no peritoneal findings. Her location of pain is also consistent with ectopic . I do not feel that CT is warranted at this time, but UA she is . Will obtain labs, if these are stable we will arrange for ultrasound tomorrow. Labs reviewed. No leukocytosis. Stable H&H. No abnormalities on CMP. Lipase within normal limits. Urine shows trace ketones otherwise no acute abnormality. Discussed these findings with the patient. We did discuss treatment options. Again, she does not have any peritoneal findings. Her history exam is not consistent with ectopic or other emergent pathology associated with her current state. Rather, I am more concerned with epigastric and left upper quadrant pain. Will order outpatient ultrasound to be completed tomorrow for further evaluation of these areas off the gallbladder. Advised that she follow-up with [facility] this week for reevaluation. Return precautions were discussed. All the concerns were addressed and she is agreement this plan. HPI General Mode of arrival: ambulatory. Date/Time Provider Initiated Documentation: 12/25/20 21:10. Limitations to Documentation: no limitations. Information obtained by: patient, family, RN notes reviewed and old records reviewed. History of Present Illness 20 year old F presents to the emergency department with the chief complaint of LUQ and epigastric discomfort, described as mild, with intensity rated at 3. Quality is described as other (cramping), and is localized to the abdomen. Patient reports no radiation. Patient started experiencing this hour(s) and it has been intermittent. No relieving factors improve symptom(s), No exacerbating factors reported . Patient notes no other symptoms.. Patient did receive the following treatments prior to arrival, none Related Data Home Medications Medication Instructions Recorded Confirmed epinephrine [EpiPen 2-Sesar] 0.3 mg IJ DIRECTED PRN #1 10/14/17 12/25/20 auto.injct albuterol sulfate 90 mcg/actuation 2 puff INHALATION ONCE PRN #8.5 g 12/21/20 12/25/20 aerosol inhaler nicotine See Rx Instructions TRANSDERMAL 12/21/20 12/25/20 21mg/24hr-14mg/24hr-7mg/24hr daily .COMPLEX #56 patch transderm patches,sequentl [id number] fum 28 mg 1 cap PO DAILY #90 cap 12/21/20 12/25/20 iron-folic acid 1 mg-omg3 200 mg capsule Previous Rx's Medication Instructions Recorded epinephrine [EpiPen 2-Sesar] 0.3 mg IJ DIRECTED PRN #1 10/14/17 auto.injct albuterol sulfate 90 mcg/actuation 2 puff INHALATION ONCE PRN #8.5 g 12/21/20 aerosol inhaler nicotine See Rx Instructions TRANSDERMAL 12/21/20 21mg/24hr-14mg/24hr-7mg/24hr daily .COMPLEX #56 patch transderm patches,sequentl [id number] fum 28 mg 1 cap PO DAILY #90 cap 12/21/20 iron-folic acid 1 mg-omg3 200 mg capsule Allergies Allergy/AdvReac Type Severity Reaction Status Date / Time dog dander Allergy Severe Verified 12/25/20 20:58 house dust mite Allergy Severe Verified 12/25/20 20:58 Pertussis Vaccines AdvReac Intermediate hives/SOB Unverified 12/25/20 20:58 tetanus and diphtheria AdvReac Intermediate hives/SOB Unverified 12/25/20 20:58 toxoids General Stated Complaint: AEROTRIANGULATION SPECIALIST CLARKE: 4 Review of Systems Constitutional Constitutional: Reports as per HPI, Denies chills, Denies fatigue, Denies fever(s) and Denies headache(s) ENT Ears, Nose, Mouth, and Throat: Denies headache(s) Cardiovascular Cardiovascular: Reports as per HPI, Denies chest pain and Denies dyspnea Respiratory Respiratory: Reports as per HPI, Denies cough and Denies dyspnea Gastrointestinal Gastrointestinal: Reports as per HPI Genitourinary Genitourinary: Reports as per HPI, Denies abnormal vaginal bleeding, Denies hematuria and Denies difficulty voiding Musculoskeletal Musculoskeletal: Reports as per HPI and Denies back pain Integumentary/Breasts Skin/Breast: Reports as per HPI and Denies rash Neurologic Neurologic: Reports as per HPI and Denies headache(s) Endocrine Endocrine: Denies fatigue [facility] Medical History (Updated 12/25/20 @ 23:07 by NEENA Riley) Abdominal pain Acute bronchiolitis due to respiratory syncytial virus (RSV) (03/24/12) Acute sinusitis ADHD (attention deficit hyperactivity disorder) Anaphylactic reaction 2018 - lip swelling, face swelling ER - allergy testing no trigger identified - has epi pen Arrested labor Body mass index, pediatric, 85th percentile to less than 95th percentile for age (03/29/14) Concern about STD in female without diagnosis Daytime sleepiness Depression Dysmenorrhea in adolescent (05/16/15) Encounter for IUD removal Kyleena IUD inserted 06/14/2019. Removed 07/15/2019 at patient's request secondary to bleeding and stated desire to become . Patient declined alternative contraception. Encounter for smoking cessation counseling Exercise-induced asthma Exposure to STD Family history of thyroid disease Lactose intolerance (10/25/15) Learning difficulty 504 plan Nasal congestion Patient desires 07/15/2019. Patient requested IUD to be removed. Rx for vitamins initiated. Right knee sprain Smoker quit 10/04/19. Resumed after 04/2020. 12/2020. Rx for Nicotine patch. URI (upper respiratory infection) Surgical History History of appendectomy [facility] 10/20/18 Status post primary low transverse section 04/12/20. Arrest of dilation. 5cm max dilation Family History (Updated 12/21/20 @ 19:11 by Venus Sanchez MD) Mother Essential hypertension Healthy adult Hypothyroid Father Healthy adult Asthma Other Personal history of malignant neoplasm paternal aunts-breast, maternal Asthma mat uncle, mat aunt, MGM Sister Asthma Paternal Aunt Breast cancer Social History (Updated 12/21/20 @ 19:12 by Venus Sanchez MD) Smoking/Tobacco Use Status: Current every day Tobacco Type: e-cigarettes Quit status: considering quitting Smoking risk assessment performed?: Yes Alcohol Intake: current Alcohol Intake frequency: a few times a month Details: says she has stopped since she might be Drug use: Current Sobriety Substance use type: former substance user and marijuana Household members: significant other and children Number of Children: 1 Education Level: high school current occupation: not employed Do you feel safe at home: Yes Do you feel safe in your relationship?: Yes Victim of physical abuse: No Victim of emotional abuse: No Victim of sexual abuse: No Female Reproductive History Menstrual Age of Menarche: 11 control method: none History History 1 Para 1 Hx # Term Pregnancies 1 Multiple births 0 Hx # Pregnancies 0 Ectopic pregnancies 0 AB induced 0 Hx Number of Living Children 1 AB spontaneous 0 Past Pregnancies Del. Date GA/Weeks # Outcome Route Wgt Sex Labor Lgth Anesthesia Location Prov Complic 04/12/20 38 No Successful 3685.438 g Male [place] Delivery Date: 04/12/20 5cm max dilation. Apgars 9/9. Venus Francis Exam Const General: cooperative, healthy appearing, comfortable, no acute distress and well developed Nutritional Appearance: average body habitus and well nourished Orientation: alert and awake HENAZ Head: normal to inspection Mouth: moist mucous membranes Resp Effort & Inspection: normal respiratory effort, able to speak in complete sentences and no respiratory distress Auscultation: clear to auscultation bilaterally, no rales, no rhonchi and no wheezes Cardio Rate: regular rate Rhythm: regular rhythm Heart Sounds: S1 normal and S2 normal GI Inspection: normal to inspection and non-distended Palpation: soft, no hepatosplenomegaly, not firm, no guarding, not rigid and tender in the epigastrum and in the LUQ; with no rebound tenderness Percussion: normal to percussion Auscultation: normal bowel sounds Back/Spine/Pelvis Back: no CVA tenderness Skin General skin exam: no rashes or lesions noted Trauma: no lacerations or abrasions Neuro General: patient alert and patient awake Cognition: normal cognition Speech: speech normal Gait: normal gait Psych Appearance: grossly normal and well kempt Mental Status: mental status grossly normal Speech and Movement: speech and movement normal Course Vital Signs Vital signs: Vital Signs Temperature 36.4 C L 12/25/20 20:54 Pulse 88 12/25/20 20:54 Respiratory Rate 18 12/25/20 20:54 Blood Pressure 114/57 L 12/25/20 20:54 Pulse Oximetry 99 12/25/20 20:54 Temperature 36.4 C L 12/25/20 20:54 Temperature Source Temporal Artery Scan 12/25/20 20:54 Pulse 91 H 12/25/20 21:47 Respiratory Rate 16 12/25/20 21:47 Blood Pressure 96/62 L 12/25/20 21:47 Blood Pressure Position Sitting 12/25/20 20:54 Pulse Oximetry 99 12/25/20 20:54 Oxygen Delivery Method Room Air 12/25/20 21:47 Oxygen Flow Rate 0 12/25/20 21:47 Pain Level 5 12/25/20 21:47
[2020-12-25] MEDS: Calcium Carbonate *TUMS* 500 MG CHEW 1000 MG PO (22:22)
[2020-12-25 22:39] LABS: Bilirubin Negative (Negative); Blood Negative (Negative); Clarity Clear (Clear); Glucose Negative (Negative); Ketones Trace mg/dL (Negative); Leukocyte Esterase Negative (Negative); Nitrite Negative (Negative); Specific Gravity 1.025 (1.005-1.025)
[2020-12-25 22:44] LABS: HCT 37.3 % (36.0-46.0); HGB 11.9 g/dL (11.2-15.7); MCH 27.9 pg (27.0-33.0); MCHC 31.9 % (32.0-36.0); MCV 87.6 fL (80-95); MPV 9.5 fL (8.0-11.0); Platelet Count 288 10^3/uL (130-400); RBC 4.26 10^6/uL (3.93-5.22); RDW 13.6 % (11.7-14.6); RDW-SD 43.1 fL; WBC 8.09 10^3/uL (4.4-10.8)
[2020-12-25 22:53] LABS: ALT 16 U/L (14-59); AST 9 U/L (15-37); Albumin 3.7 g/dL (3.4-5.0); Alkaline Phosphatase 78 U/L (46-116); Anion Gap 6.8 mmol/L (3-11); BUN 8 mg/dL (7-18); Bilirubin, Total 0.6 mg/dL (0.2-1.0); CO2 26.2 mmol/L (21.0-32.0); CREATININE 0.8 mg/dL (0.55-1.02); Calcium 8.7 mg/dL (8.5-10.1); Chloride 105 mmol/L (98-107); Glucose 97 mg/dL (74-106); Lipase 76 U/L (73-393); Potassium 3.8 mmol/L (3.5-5.1); Sodium 138 mmol/L (136-145); Total Protein 7.2 g/dL (6.4-8.2)
[2020-12-25 23:05] VITALS: BP 132/74; PULSE 87; RESP 18; TEMP 36.5; O2SAT 99
--- NOTE | 2020-12-26 07:24 | NUR.NOTE ---
Nursing Note: Accessed pt record to get information to place US order. Dr. Nichols filled out the order and it was faxed to [facility] this morning. Marilee Chang
== END 2020-12-25 23:28 | disposition home or self-care (01) ==
PROVIDERS: Emergency Provider Physician Assistant
DX: O26.891 Other specified pregnancy related conditions, first trimester (principal)
CPT/HCPCS: 80053; 83690; 85027; 99282; 81003

== ENCOUNTER 2020-12-26 10:58 | Outpatient (CLI) | payer MEDICAID, SELFPAY ==
--- NOTE | 2020-12-26 | DI.US_ITS ---
Exam(s) US ABDOMEN LIMITED EXAM: US ABDOMEN LIMITED CLINICAL HISTORY: EPIGASTRIC PAIN TECHNIQUE: Ultrasound abdomen performed using standard protocol. COMPARISON: CT CT ABDOMEN PELVIS W from 07/23/[address] ABDOMEN PELVIS W from 07/23/2020 FINDINGS: LIVER: Normal size and echogenicity. No focal liver lesions are seen.. GALLBLADDER: No evidence of cholelithiasis. No evidence of wall thickening. No pericholecystic fluid identified. FERNANDES'S SIGN: Negative. BILIARY SYSTEM: No intrahepatic or extrahepatic biliary ductal dilation. RIGHT KIDNEY: Normal size. No evidence of renal calculi. No evidence of hydronephrosis. No suspicious renal mass. No cyst identified. PANCREAS: Normal where visualized. ABDOMINAL AORTA AND IVC: Visualized portions normal caliber. ASCITES: None seen. IMPRESSION: Normal sonographic appearance of the right upper quadrant. DATA REPOSITORY:
== END 2020-12-26 11:18 ==
PROVIDERS: Visit Provider Physician Assistant
DX: R10.13 Epigastric pain (principal)
CPT/HCPCS: 76705

== ENCOUNTER 2020-12-27 10:59 | Outpatient (CLI) | payer MEDICAID, SELFPAY ==
--- NOTE | 2020-12-27 10:30 | DI.US_ITS ---
Exam(s) US OB 1ST TRIMESTER EXAM: US OB 1ST TRIMESTER CLINICAL HISTORY: , abd pain, ? ectopic, R10.9, Z34.90. TECHNIQUE: Transabdominal and transvaginal pelvic ultrasound was performed using standard protocol. COMPARISON: US US OB F/U FACIAL/LVOT/RVOT from 01/28/2020 FINDINGS: UTERUS: Position: Retroflexed. Size: 11.5 long by 3.9 AP by 7.0 transverse cm Endometrium: 1.4 cm. Normal for patient's menstrual status. There is no evidence of an intrauterine g estation. Myometrium: Unremarkable. Cervix: Unremarkable. OVARIES: Right: 2.4 x 2.2 x 2.1 cm Cyst or mass: Small functional cysts are present. Left: 3.2 x 3.1 x 2.7 cm Cyst or mass: Small functional cysts are present. DOPPLER: Color: Symmetric and uniform flow to both ovaries. No hyperemia. Duplex: Normal ovarian arterial waveforms visualized. CUL-DE-SAC: Free fluid: None. Other: There is no evidence of an extra uterine . IMPRESSION: 1. No evidence of an intrauterine or ectopic . 2. Normal-appearing uterus with endometrial stripe within normal limits. 3. Unremarkable bilateral ovaries. DATA REPOSITORY:
== END 2020-12-27 11:19 ==
PROVIDERS: Visit Provider Advanced Practice Midwife
DX: R10.9 Unspecified abdominal pain (principal); Z34.91 Encounter for supervision of normal pregnancy, unspecified, first trimester
CPT/HCPCS: 76801

== ENCOUNTER 2020-12-28 03:11 | Outpatient (CLI) | payer MEDICAID, SELFPAY ==
[2020-12-28 11:36] LABS: HCG Quant, Pregnancy 2044 mIU/mL (1-3)
== END 2020-12-28 03:12 | disposition home or self-care (01) ==
LOC: LBO 03:11
PROVIDERS: Visit Provider Advanced Practice Midwife
DX: Z32.01 Encounter for pregnancy test, result positive (principal)
CPT/HCPCS: 36415; 84702

== ENCOUNTER 2020-12-30 09:15 | Observation (INO) | payer MEDICAID, SELFPAY ==
[2020-12-30 09:12] VITALS: BP 105/66; PULSE 99; RESP 16; TEMP 36.6
[2020-12-30 10:35] LABS: ALT 14 U/L (14-59); AST 9 U/L (15-37); Albumin 3.5 g/dL (3.4-5.0); Alkaline Phosphatase 70 U/L (46-116); Anion Gap 6.4 mmol/L (3-11); BUN 10 mg/dL (7-18); Bilirubin, Total 0.7 mg/dL (0.2-1.0); CO2 27.6 mmol/L (21.0-32.0); Calcium 8.4 mg/dL (8.5-10.1); Chloride 106 mmol/L (98-107); Glucose 79 mg/dL (74-106); Potassium 3.8 mmol/L (3.5-5.1); Sodium 140 mmol/L (136-145); Total Protein 6.7 g/dL (6.4-8.2)
[2020-12-30 11:31] LABS: HCG Quant, Pregnancy 4958 mIU/mL (1-3)
--- NOTE | 2020-12-30 12:11 | W.PM.PROGNOT ---
Date of Service Date of service: 12/30/20 Time of Service: 12:11 Assessment and Plan Assessment and plan (1) Threatened miscarriage in early : Status: Acute Assessment and plan: Pt continues comfortable and had appropriate rise in hCG level. Pt will f/u in [facility] on 12/05/20 for OB dating u/s. She is aware of ectopic s/s and will call or present to ED if she has abdominal pain, uterine bleeding. Subjective Subjective Patient reports: feels better (had been constipated. BM last night. ), tolerating a regular diet and bowel movement; denies vomiting Interval history since last seen: Pt is a 20yo female who presents in f/u from a [facility] visit on 12/28/20. Pt has been followed as an outpatient for a hCG lower than anticipated at her supposed EGA. I recommended a hCG today, looking for an appropriate elevation from the value obtained on 12/28/20. PGynHx 04/12/20. LTCS for arrest of dilation. 8lb4oz. Zach. Breastfed 1mo. 05/2020. Mirena IUD inserted. 07/2020. Mirena IUD out. 11/12/20. LMP. 12/21/20. + UPT in office. 12/25/20. ED visit with epigastric pain. Nl abd u/s. No IUP with pt ~ 6d2d EGA by LMP 12/28/20. hCG 2044 mIU/ml. No abd pain, no uterine bleeding Exam Narrative Exam Narrative: Called CNM provider last night with generalized uterine cramping. Did not go to ED as advised but pain resolved after BM. Pt reports constipation with her previous . Const General: no acute distress Nutritional Appearance: average body habitus Orientation: alert, awake and oriented x3 Resp Effort & Inspection: normal respiratory effort GI Inspection: normal to inspection Palpation: soft, no hepatosplenomegaly, not firm, no guarding, no masses and nontender Objective Last Vital Signs Temp 97.9 F 12/30/20 09:12 Pulse 99 H 12/30/20 09:12 Resp 16 12/30/20 09:12 BP 105/66 12/30/20 09:12 Laboratory Results - last 24 hr 12/30/20 10:02 Sodium 140 Potassium 3.8 Chloride 106 Carbon Dioxide 27.6 Anion Gap 6.4 BUN 10 Creatinine 1.0 Estimated GFR/1.73 m2 >= 60.00 Glucose 79 Calcium 8.4 L Total Bilirubin 0.7 AST 9 L ALT 14 Alkaline Phosphatase 70 Total Protein 6.7 Albumin 3.5 Beta HCG, Quant 4958 H
== END 2020-12-30 10:30 | disposition home or self-care (01) ==
LOC: OBS 10:06 → LBO 01-01 09:47
PROVIDERS: Admitting Provider Obstetrics & Gynecology Gynecology; Visit Provider Advanced Practice Midwife
DX: O20.0 Threatened abortion (principal); Z3A.01 Less than 8 weeks gestation of pregnancy
CPT/HCPCS: 36415; 80053; 84702

== ENCOUNTER 2021-01-03 13:32 | Emergency (ER) | payer MEDICAID, SELFPAY ==
[2021-01-03 13:40] VITALS: BP 116/69; PULSE 99; RESP 18; TEMP 36.8; O2SAT 99
--- NOTE | 2021-01-03 14:15 | DI.RAD_ITS ---
Exam(s) XR WRIST LT COMPLETE EXAM: XR WRIST LT COMPLETE CLINICAL HISTORY: left wrist pain. TECHNIQUE: 2D digital imaging was performed. COMPARISON: No exams were available for comparison FINDINGS: No evidence of fracture or dislocation. Bone density normal. No osseous lesions. No radiopaque for eign body. IMPRESSION: No fracture evident. DATA REPOSITORY: RADIATION DOSE DELIVERED:
--- NOTE | 2021-01-03 14:15 | DI.US_ITS ---
Exam(s) US OB 1ST TRIMESTER EXAM: US OB 1ST TRIMESTER CLINICAL HISTORY: cramping, low quant no vis iup. TECHNIQUE: First trimester obstetrical ultrasound was performed. COMPARISON: No exams were available for comparison FINDINGS: There is an intrauterine gestational sac which contains a yolk sac and viable pole which exhibi ts heart rate of 120 bpm. Yolk sac diameter is 3 millimeters Vera-rump length measurement is 4 mm, corresponding to 6 weeks gestational age. There is no evidence of subchorionic hemorrhage. Maternal ovaries: Right ovary measures 2.8 x 2.0 x 2.0 cm. Left ovary measures 3.9 x 2.8 x 2.6 cm.. There is a hemorrhagic corpus luteal cyst left ovary measur ing 2.3 x 2.1 x 2.1 cm. There is no fluid in the cul-de-sac and adnexal regions. IMPRESSION:: Single viable intrauterine gestation which is approximately 6 weeks gestational age by crown rump length measurement, implying ROMAN of August 29, 2021. There is no evidence of subchorionic hemorrhage. Hemorrhagic corpus luteal cyst noted in left ovary measuring 23 x 21 x 20 millimeters. There is no free fluid evident in the cul-de-sac. DATA REPOSITORY:
[2021-01-03 14:18] LABS: Bilirubin Negative (Negative); Blood Negative (Negative); Clarity Clear (Clear); Glucose Negative (Negative); Ketones Negative (Negative); Leukocyte Esterase Small (Negative); Nitrite Negative (Negative)
[2021-01-03 14:32] LABS: Abs Immature Grans 0.03 10^3/uL (0.0-0.06); Absolute Basophil Count 0.04 10^3/uL (0.0-0.2); Absolute Eosinophil Count 0.14 10^3/uL (0.0-0.7); Absolute Lymphocyte Count 1.83 10^3/uL (1.2-3.4); Absolute Monocyte Count 0.49 10^3/uL (0.1-0.8); Absolute Neutrophil Count 4.16 10^3/uL (1.2-6.7); Basophils % 0.6; Eosinophils % 2.1; HCT 35.2 % (36.0-46.0); HGB 11.6 g/dL (11.2-15.7); Immature Grans % 0.4; Lymphocytes % 27.4; MCH 28.5 pg (27.0-33.0); MCV 86.5 fL (80-95); Monocytes % 7.3; Neutrophils % 62.2; Nucleated RBC 0 %; Platelet Count 255 10^3/uL (130-400); RBC 4.07 10^6/uL (3.93-5.22); RDW 13.6 % (11.7-14.6); RDW-SD 42.6 fL; WBC 6.69 10^3/uL (4.4-10.8)
[2021-01-03 14:33] LABS: Bacteria Rare HPF (Negative); Crystals Negative HPF (Negative); Epithelial Cells Moderate HPF (Negative); RBC Negative HPF (0-2); WBC 0-2 HPF (0-5)
[2021-01-03 14:34] LABS: C & S Indicated? No/Sq. Contamination; Casts Negative LPF (Negative); Mucus Moderate (Negative)
[2021-01-03 14:44] LABS: ALT 14 U/L (14-59); AST 12 U/L (15-37); Albumin 3.5 g/dL (3.4-5.0); Alkaline Phosphatase 76 U/L (46-116); Anion Gap 8.6 mmol/L (3-11); BUN 6 mg/dL (7-18); Bilirubin, Total 0.8 mg/dL (0.2-1.0); CO2 26.4 mmol/L (21.0-32.0); CREATININE 0.8 mg/dL (0.55-1.02); Calcium 8.3 mg/dL (8.5-10.1); Chloride 104 mmol/L (98-107); Glucose 84 mg/dL (74-106); Potassium 3.8 mmol/L (3.5-5.1); Sodium 139 mmol/L (136-145); Total Protein 6.8 g/dL (6.4-8.2)
--- NOTE | 2021-01-03 15:12 | W.ED.GENAD ---
Discharge Plan Disposition Patient Disposition: HOME Condition: Stable Discharge Details Clinical Impression: Herpes, Intrauterine , Muscle strain of wrist Primary Care Provider: None,None ED Provider: Hilaria Dowd Home Meds and New Rx's Prescriptions: New acyclovir 400 mg tablet 400 mg PO TID Qty: 21 RF: 0 Continued nicotine 21-14-7 mg/24 hr patch, TD daily, sequential See Rx Instructions transdermal .COMPLEX Qty: 56 RF: 1 C-Sourav DHA 28 mg iron-1 mg -200 mg capsule 1 cap PO DAILY Qty: 90 RF: 5 albuterol sulfate [ProAir HFA] 90 mcg/actuation HFA aerosol inhaler 2 puff Inhalation ONCE PRN (Reason: asthma) Qty: 8.5 RF: 5 epinephrine [EpiPen 2-Sesar] 0.3 MG/0.3 ML auto-injector 0.3 mg IJ DIRECTED PRN (Reason: impending anaphylaxis) Qty: 1 RF: 0 Discharge Instructions Instructions: (ED), Muscle Strain (ED) Additional Instructions: Please follow-up with OB at your scheduled appointment Your herpes swab is pending, please take the acyclovir until your test returns, this will likely be 2 to 3 days If you do test positive, this is a very contagious virus and easily spread through contact Do not engage in any sexual activity until you are reassessed and your swab has returned Please take Tylenol as needed for discomfort Should you have vaginal bleeding or worsening pain, please return to the emergency room for reassessment Encourage elevation of your wrist. You may use splint to help with discomfort. Please have this reassessed by primary care in 2 weeks. Referrals: Venus Sanchez MD [ [facility] STAFF PHYSICIAN] - Discharge Data Discharge Date/Time-TO BE ENTERED AT DEPARTURE: 01/03/21 19:14 Medical Decision Making <NEENA Cedeno - Last Filed: 01/05/21 15:22> Patient appears well, she has an intrauterine on ultrasound, she is not actively bleeding She does have an area of vesicles on her left labial region, I will treat her empirically for herpes, pending swab No clinical evidence of pelvic inflammatory disease She have a quant of 20,000 which is reassuring, she has a positive for her blood type Her urine does not show evidence of infection Herpes precautions discussed She did have an injury to her left wrist she is pending x-ray, she did consent to receive x-ray with shielding, risk of radiation discussed and she consented to these risks She has been signed out to yAde Dowd pending x-ray interpretation only <NEENA Riley - Last Filed: 01/03/21 19:03> Care transition to myself from Verena Miller PA-C. Please see her initial note regarding history, presentation and exam. In brief, patient is here for pelvic pain. Was diagnosed by Paul with genital herpes. Treatment has already been set up regarding this. Patient underwent ultrasound showing an intrauterine . At the time I assumed care, x-ray for injured wrist from fall 1 week ago was pending. FINDINGS: Bones/joints: Normal. Soft tissues: Normal. IMPRESSION: No acute findings Discussed these findings with the patient. Encourage rest, ice, elevation. Tylenol as needed for discomfort. Will brace to help with discomfort. Return precautions were discussed. Advise follow-up with primary care in the next 2 weeks for reevaluation. All the questions concerns were addressed and she is in agreement with this plan. HPI <NEENA Cedeno - Last Filed: 01/05/21 15:22> General Mode of arrival: ambulatory. Date/Time Provider Initiated Documentation: 01/03/21 14:07. Limitations to Documentation: no limitations. Information obtained by: patient. HPI Narrative: This 20-year-old female presents with report positive test without IUP on ultrasound, she had persistent lower abdominal cramping. She denies any exacerbation of her cramping today but does present with a rash which she states presented 2 days ago. She does have a new partner within the past month reportedly. She denies any chest pain, shortness of breath, dizziness, weakness, she does have pain with urination but secondary to touching the lesions. She denies any vaginal bleeding. She does also have pain to her left wrist. She states she fell and landed on her wrist a week ago. She denies any additional injuries. She feels pain. Related Data Home Medications Medication Instructions Recorded Confirmed epinephrine [EpiPen 2-Sesar] 0.3 mg IJ DIRECTED PRN #1 10/14/17 01/03/21 auto.injct albuterol sulfate 90 mcg/actuation 2 puff INHALATION ONCE PRN #8.5 g 12/21/20 01/03/21 aerosol inhaler nicotine See Rx Instructions TRANSDERMAL 12/21/20 01/03/21 21mg/24hr-14mg/24hr-7mg/24hr daily .COMPLEX #56 patch transderm patches,sequentl [id number] fum 28 mg 1 cap PO DAILY #90 cap 12/21/20 01/03/21 iron-folic acid 1 mg-omg3 200 mg capsule acyclovir 400 mg PO TID #21 tab 01/03/21 Previous Rx's Medication Instructions Recorded epinephrine [EpiPen 2-Sesar] 0.3 mg IJ DIRECTED PRN #1 10/14/17 auto.injct albuterol sulfate 90 mcg/actuation 2 puff INHALATION ONCE PRN #8.5 g 12/21/20 aerosol inhaler nicotine See Rx Instructions TRANSDERMAL 12/21/20 21mg/24hr-14mg/24hr-7mg/24hr daily .COMPLEX #56 patch transderm patches,sequentl [id number] fum 28 mg 1 cap PO DAILY #90 cap 12/21/20 iron-folic acid 1 mg-omg3 200 mg capsule acyclovir 400 mg PO TID #21 tab 01/03/21 Allergies Allergy/AdvReac Type Severity Reaction Status Date / Time dog dander Allergy Severe Verified 01/03/21 13:44 house dust mite Allergy Severe Verified 01/03/21 13:44 Pertussis Vaccines AdvReac Intermediate hives/SOB Unverified 01/03/21 13:44 tetanus and diphtheria AdvReac Intermediate hives/SOB Unverified 01/03/21 13:44 toxoids General Stated Complaint: [employer]: 3 Review of Systems <NEENA Cedeno - Last Filed: 01/05/21 15:22> All systems reviewed & are unremarkable except as noted in HPI and below PFSH <NEENA Cedeno - Last Filed: 01/05/21 15:22> Medical History (Updated 01/03/21 @ 16:29 by NEENA Cedeno) Abdominal pain Acute bronchiolitis due to respiratory syncytial virus (RSV) (03/24/12) Acute sinusitis ADHD (attention deficit hyperactivity disorder) Anaphylactic reaction 2018 - lip swelling, face swelling ER - allergy testing no trigger identified - has epi pen Arrested labor Body mass index, pediatric, 85th percentile to less than 95th percentile for age (03/29/14) Concern about STD in female without diagnosis Daytime sleepiness Depression Dysmenorrhea in adolescent (05/16/15) Encounter for IUD removal Elialeena IUD inserted 06/14/2019. Removed 07/15/2019 at patient's request secondary to bleeding and stated desire to become . Patient declined alternative contraception. Encounter for smoking cessation counseling Exercise-induced asthma Exposure to STD Family history of thyroid disease Lactose intolerance (10/25/15) Learning difficulty 504 plan Nasal congestion Patient desires 07/15/2019. Patient requested IUD to be removed. Rx for vitamins initiated. Positive urine test Right knee sprain Smoker quit 10/04/19. Resumed after 04/2020. 12/2020. Rx for Nicotine patch. URI (upper respiratory infection) Surgical History History of appendectomy [facility] 10/20/18 Status post primary low transverse section 04/12/20. Arrest of dilation. 5cm max dilation Family History (Updated 12/21/20 @ 19:11 by Venus Sanchez MD) Mother Essential hypertension Healthy adult Hypothyroid Father Healthy adult Asthma Other Personal history of malignant neoplasm paternal aunts-breast, maternal Asthma mat uncle, mat aunt, MGM Sister Asthma Paternal Aunt Breast cancer Social History (Updated 12/21/20 @ 19:12 by Venus Sanchez MD) Smoking/Tobacco Use Status: Current every day Tobacco Type: e-cigarettes Quit status: considering quitting Smoking risk assessment performed?: Yes Alcohol Intake: former Details: says she has stopped since she might be Drug use: Current Sobriety Substance use type: former substance user and marijuana Household members: significant other and children Number of Children: 1 Education Level: high school current occupation: not employed Do you feel safe at home: Yes Do you feel safe in your relationship?: Yes Victim of physical abuse: No Victim of emotional abuse: No Victim of sexual abuse: No Female Reproductive History Menstrual Age of Menarche: 11 control method: none History History 1 Para 1 Hx # Term Pregnancies 1 Multiple births 0 Hx # Pregnancies 0 Ectopic pregnancies 0 AB induced 0 Hx Number of Living Children 1 AB spontaneous 0 Past Pregnancies Del. Date GA/Weeks # Outcome Route Wgt Sex Labor Lgth Anesthesia Location Prov Complic 04/12/20 38 No Successful 3685.438 g Male [place] Delivery Date: 04/12/20 5cm max dilation. Apgars 99. Venus Francis Exam <NEENA Cedeon - Last Filed: 01/05/21 15:22> Const General: cooperative and no acute distress Orientation: alert and oriented x3 HENMT Other: Moist mucous membranes Eyes Sclera: sclerae normal Resp Effort & Inspection: normal respiratory effort Auscultation: clear to auscultation bilaterally Cardio Rate: regular rate Rhythm: regular rhythm GI Inspection: normal to inspection Other: Nontender abdominal exam Other: Vesicular lesion to left labia, cervix closed, clear vaginal discharge, no bleeding Skin General skin exam: no rashes or lesions noted Neuro General: patient alert and patient oriented x3 Extrem General: normal to inspection Other: No peripheral edema Course <NEENA Cedeno - Last Filed: 01/05/21 15:22> Vital Signs Vital signs: Vital Signs Temperature 36.8 C 01/03/21 13:40 Pulse 99 H 01/03/21 13:40 Respiratory Rate 18 01/03/21 13:40 Blood Pressure 116/69 01/03/21 13:40 Pulse Oximetry 99 01/03/21 13:40 Temperature 36.8 C 01/03/21 13:40 Temperature Source Temporal Artery Scan 01/03/21 13:40 Pulse 99 H 01/03/21 13:40 Respiratory Rate 18 01/03/21 13:40 Respiratory Effort Non-Labored 01/03/21 13:45 Blood Pressure 116/69 01/03/21 13:40 Blood Pressure Position Sitting 01/03/21 13:40 Pulse Oximetry 99 01/03/21 13:40 Oxygen Delivery Method Room Air 01/03/21 13:40 Oxygen Flow Rate 0 01/03/21 13:40 Pain Level 7 01/03/21 13:53 Lab/Test Results Lab/Test Results: Laboratory Tests Range/Units 01/03/21 01/03/21 01/03/21 14:00 14:10 14:10 WBC (4.4-10.8) 10^3/uL 6.69 RBC (3.93-5.22) 10^6/uL 4.07 Hgb (11.2-15.7) g/dL 11.6 Hct (36.0-46.0) % 35.2 L MCV (80-95) fL 86.5 MCH (27.0-33.0) pg 28.5 MCHC (32.0-36.0) % 33.0 RDW (11.7-14.6) % 13.6 Plt Count (130-400) 10^3/uL 255 MPV (8.0-11.0) fL 10.0 Immature Gran % 0.4 Neutrophils % 62.2 Lymphocytes % 27.4 Monocytes % 7.3 Eosinophils % 2.1 Basophils % 0.6 Nucleated RBC % % 0 Absolute Neutrophils (1.2-6.7) 10^3/uL 4.16 Absolute Lymphocytes (1.2-3.4) 10^3/uL 1.83 Absolute Monocytes (0.1-0.8) 10^3/uL 0.49 Absolute Eosinophils (0.0-0.7) 10^3/uL 0.14 Absolute Basophils (0.0-0.2) 10^3/uL 0.04 Sodium (136-145) mmol/L 139 Potassium (3.5-5.1) mmol/L 3.8 Chloride (98-107) mmol/L 104 Carbon Dioxide (21.0-32.0) mmol/L 26.4 Anion Gap (3-11) mmol/L 8.6 BUN (7-18) mg/dL 6 L Creatinine (0.55-1.02) mg/dL 0.8 Estimated GFR/1.73 m2 (mL/min/1.73m2) >= 60.00 Glucose (74-106) mg/dL 84 Calcium (8.5-10.1) mg/dL 8.3 L Total Bilirubin (0.2-1.0) mg/dL 0.8 AST (15-37) U/L 12 L ALT (14-59) U/L 14 Alkaline Phosphatase (46-116) U/L 76 Total Protein (6.4-8.2) g/dL 6.8 Albumin (3.4-5.0) g/dL 3.5 Urine Color (Yellow) Yellow Urine Clarity (Clear) Clear Urine pH (5-8) 7.0 Ur Specific [place] (1.005-1.025) 1.020 Urine Protein (Negative) mg/dL Negative Urine Ketones (Negative) mg/dL Negative Urine Blood (Negative) Negative Urine Nitrite (Negative) Negative Urine Bilirubin (Negative) Negative Urine Urobilinogen (Up TO 0.2) EU/dL 1.0 H Ur Leukocyte Esterase (Negative) Small H Urine RBC (0-2) HPF Negative Urine WBC (0-5) HPF 0-2 Ur Epithelial Cells (Negative) HPF Moderate Urine Crystals (Negative) HPF Negative Urine Bacteria (Negative) HPF Rare Urine Casts (Negative) LPF Negative Urine Mucus (Negative) Moderate Ur Culture Indicated? No/Sq. Contamination Urine Glucose (Negative) mg/dL Negative POC- Test(urine) Positive Sign Out <NEENA Cedeno - Last Filed: 01/05/21 15:22> Sign Out Data: Sign Out Comment: pending xray, wtg Last updated by Verena Miller PA at 01/03/21 16:46
[2021-01-03 15:48] LABS: HCG Quant, Pregnancy 20517 mIU/mL (1-3)
[2021-01-03 17:26] VITALS: BP 90/43; PULSE 89; TEMP 37.7; O2SAT 99
--- NOTE | 2021-01-03 18:56 | DI.VRAD_ITS ---
PROCEDURE INFORMATION: Exam: XR Left Wrist Exam date and time: 01/03/2021 2:18 PM Age: 20 years old Clinical indication: Other: 3 TECHNIQUE: Imaging protocol: XR Left wrist. Views: 3 or more views. COMPARISON: CR XR WRIST 3 VIEW LEFT 10/05/2020 6:03 PM FINDINGS: Bones/joints: Normal. Soft tissues: Normal. IMPRESSION: No acute findings. Dictated and Authenticated by: Jose Chester MD. Ordering:RENATA Albarado MD
[2021-01-05 12:37] LABS: HSV 1 DNA Result Negative (Negative); HSV 2 DNA Result Positive (Negative)
[2021-01-05 14:26] LABS: Chlamydia Result Negative (Negative); GC Result Negative (Negative)
== END 2021-01-03 19:14 | disposition home or self-care (01) ==
PROVIDERS: Physician Assistant; Emergency Provider Physician Assistant
DX: O98.311 Other infections with a predominantly sexual mode of transmission complicating pregnancy, first trimester (principal); A60.04 Herpesviral vulvovaginitis; S66.812A Strain of other specified muscles, fascia and tendons at wrist and hand level, left hand, initial encounter; W18.39XA Other fall on same level, initial encounter
CPT/HCPCS: 29125; 36415; 80053; 81025; 86850; 86900; 86901; 87491; 87529; 87591; 99284; 73110; 76801; 81003; 81015; 84702; 85025; 87480; 87510; 87660

== ENCOUNTER 2021-01-06 18:54 | Outpatient (REF) | payer MEDICAID, SELFPAY ==
[2021-01-08 18:57] LABS: COVID-19 RT-PCR Result Not Detected ((See Note))
== END 2021-01-06 18:55 | disposition home or self-care (01) ==
LOC: LBN 18:54
PROVIDERS: Visit Provider Internal Medicine
DX: Z20.822 Contact with and (suspected) exposure to COVID-19 (principal)
CPT/HCPCS: U0003

== ENCOUNTER 2021-01-10 16:50 | Outpatient (REF) | payer MEDICAID, SELFPAY ==
[2021-01-12 11:04] LABS: COVID-19 RT-PCR UVMMC Result Negative (Negative)
== END 2021-01-10 16:51 | disposition home or self-care (01) ==
LOC: LBN 16:50
PROVIDERS: Visit Provider Physician Assistant Medical
DX: R35.0 Frequency of micturition (principal)
CPT/HCPCS: U0003; 87086

== ENCOUNTER 2021-02-12 16:33 | Emergency (ER) | payer MEDICAID, SELFPAY ==
[2021-02-12 16:41] VITALS: BP 103/61; PULSE 85; RESP 16; TEMP 36.5; O2SAT 98
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
[2021-02-12 17:37] LABS: Bilirubin Negative (Negative); Blood Trace-intact (Negative); Clarity Cloudy (Clear); Glucose Negative (Negative); Ketones Negative (Negative); Leukocyte Esterase Large (Negative); Nitrite Negative (Negative); Specific Gravity 1.015 (1.005-1.025); Urobilinogen 0.2 EU/dL (Up TO 0.2)
[2021-02-12 17:46] LABS: WBC >50 HPF (0-5)
[2021-02-12 17:47] LABS: Bacteria Moderate HPF (Negative); C & S Indicated? No/Sq. Contamination; Epithelial Cells Many HPF (Negative)
[2021-02-12 17:57] LABS: Abs Immature Grans 0.02 10^3/uL (0.0-0.06); Absolute Basophil Count 0.04 10^3/uL (0.0-0.2); Absolute Eosinophil Count 0.17 10^3/uL (0.0-0.7); Absolute Lymphocyte Count 2.17 10^3/uL (1.2-3.4); Absolute Monocyte Count 0.46 10^3/uL (0.1-0.8); Absolute Neutrophil Count 6.01 10^3/uL (1.2-6.7); Basophils % 0.5; Eosinophils % 1.9; HCT 36.9 % (36.0-46.0); HGB 12.1 g/dL (11.2-15.7); Immature Grans % 0.2; Lymphocytes % 24.5; MCHC 32.8 % (32.0-36.0); MCV 88.5 fL (80-95); MPV 9.9 fL (8.0-11.0); Monocytes % 5.2; Neutrophils % 67.7; Nucleated RBC 0 %; Platelet Count 211 10^3/uL (130-400); RBC 4.17 10^6/uL (3.93-5.22); RDW 13.9 % (11.7-14.6); RDW-SD 45.1 fL; WBC 8.87 10^3/uL (4.4-10.8)
[2021-02-12 18:00] LABS: *AMPHETAMINES SCREEN URINE Negative (Negative); *BARBITURATES SCREEN URINE Negative (Negative); *BENZODIAZEPINES SCREEN URINE Negative (Negative); Cannabinoids THC Negative (Negative); Cocaine Screen,Urine Negative (Negative); METHADONE URINE SCREEN Negative (Negative); OPIATES URINE SCREEN Negative (Negative)
[2021-02-12 18:02] LABS: Tricyclic Antidepressants Negative (Negative)
[2021-02-12 18:21] LABS: ALT 15 U/L (14-59); AST 11 U/L (15-37); Albumin 3.5 g/dL (3.4-5.0); Alkaline Phosphatase 54 U/L (46-116); Anion Gap 7.9 mmol/L (3-11); BUN 5 mg/dL (7-18); Bilirubin, Total 0.4 mg/dL (0.2-1.0); CO2 26.1 mmol/L (21.0-32.0); CREATININE 0.6 mg/dL (0.55-1.02); Calcium 8.7 mg/dL (8.5-10.1); Chloride 106 mmol/L (98-107); ETHANOL BLOOD < 3.0 mg/dL (<10); Glucose 85 mg/dL (74-106); Potassium 3.8 mmol/L (3.5-5.1); Sodium 140 mmol/L (136-145); Total Protein 6.8 g/dL (6.4-8.2)
[2021-02-12 18:22] LABS: Acetaminophen < 2 ug/mL (10-30); Salicylate < 2.8 mg/dL (<2.8)
[2021-02-12 20:18] LABS: Bilirubin Negative (Negative); Blood Negative (Negative); Clarity Clear (Clear); Glucose Negative (Negative); Ketones Negative (Negative); Leukocyte Esterase Trace (Negative); Nitrite Negative (Negative); Specific Gravity 1.025 (1.005-1.025); Urobilinogen 0.2 EU/dL (Up TO 0.2)
[2021-02-12 20:28] LABS: Bacteria Few HPF (Negative); C & S Indicated? Yes; Crystals Negative HPF (Negative); Epithelial Cells Moderate HPF (Negative); Mucus Negative (Negative); RBC Negative HPF (0-2); WBC 0-2 HPF (0-5)
--- NOTE | 2021-02-12 21:09 | NUR.NOTE ---
needs follow up with pcp in one week and the referral sheet is in care managements mail box. Nursing Note:
--- NOTE | 2021-02-14 08:54 | PDOC.ERCMPRO ---
- If Service Date Differs Date of service: 02/14/21 Time of Service: 08:54 Care Management Progress Note Lawanda is seen in the ED for depression. At the request of ED provider, CM coordinates a referral to NEENA Bui, of [facility], on-call provider, to assist Lawanda in establishing care with a PCP. Lawanda is also being followed by [facility].
== END 2021-02-12 21:08 | disposition home or self-care (01) ==
PROVIDERS: Emergency Provider Physician Assistant
DX: O99.341 Other mental disorders complicating pregnancy, first trimester (principal); F32.A Depression, unspecified; Z3A.10 10 weeks gestation of pregnancy; Z91.51 Personal history of suicidal behavior
CPT/HCPCS: 80053; 80307; 81025; 87635; 99285; 80320; 80329; 81003; 81015; 84443; 85025; 87086; 99284

== ENCOUNTER 2021-02-19 16:17 | Outpatient (REF) | payer MEDICAID, SELFPAY ==
[2021-02-21 15:49] LABS: Chlamydia Result Negative (Negative); GC Result Negative (Negative)
== END 2021-02-19 16:18 | disposition home or self-care (01) ==
LOC: LBN 16:17
PROVIDERS: Visit Provider Nurse Practitioner Women's Health
DX: N76.0 Acute vaginitis (principal); R30.0 Dysuria; Z11.3 Encounter for screening for infections with a predominantly sexual mode of transmission
CPT/HCPCS: 87491; 87591; 87086; 87480; 87510; 87660

== ENCOUNTER 2021-03-12 02:55 | Outpatient (CLI) | payer MEDICAID, SELFPAY ==
[2021-03-12 11:12] LABS: Kit/Specimen SENT
[2021-03-12 11:35] LABS: Abs Immature Grans 0.05 10^3/uL (0.0-0.06); Absolute Basophil Count 0.03 10^3/uL (0.0-0.2); Absolute Eosinophil Count 0.08 10^3/uL (0.0-0.7); Absolute Lymphocyte Count 1.89 10^3/uL (1.2-3.4); Absolute Monocyte Count 0.44 10^3/uL (0.1-0.8); Absolute Neutrophil Count 8.25 10^3/uL (1.2-6.7); Basophils % 0.3; Eosinophils % 0.7; HCT 33.6 % (36.0-46.0); HGB 11.1 g/dL (11.2-15.7); Immature Grans % 0.5; Lymphocytes % 17.6; MCH 29.7 pg (27.0-33.0); MCV 89.8 fL (80-95); MPV 9.7 fL (8.0-11.0); Monocytes % 4.1; Neutrophils % 76.8; Nucleated RBC 0 %; Platelet Count 246 10^3/uL (130-400); RBC 3.74 10^6/uL (3.93-5.22); RDW 13.3 % (11.7-14.6); RDW-SD 43.9 fL; WBC 10.74 10^3/uL (4.4-10.8)
[2021-03-12 12:44] LABS: TSH (W/Ref FT4) 1.89 uIU/mL (0.36-3.74)
[2021-03-12 13:39] LABS: *AMPHETAMINES SCREEN URINE Negative (Negative); *BARBITURATES SCREEN URINE Negative (Negative); *BENZODIAZEPINES SCREEN URINE Negative (Negative); Cannabinoids THC Negative (Negative); Cocaine Screen,Urine Negative (Negative); METHADONE URINE SCREEN Negative (Negative); OPIATES URINE SCREEN Negative (Negative)
[2021-03-12 13:42] LABS: Tricyclic Antidepressants Negative (Negative)
[2021-03-13 10:21] LABS: Rubella IgG Ab (UVM) Negative (See Note); Varicella IgG Antibody Positive (See Note)
[2021-03-13 11:04] LABS: HIV-1/2 Ag & Ab Screen Negative (Negative)
[2021-03-13 11:13] LABS: Hepatitis B Surface Ag Negative (Negative); Hepatitis C Ab w Rflx HCV PCR Negative (Negative)
[2021-03-14 12:56] LABS: Syphilis Total Ab w/Reflex Nonreactive (Nonreactive)
[2021-03-14 13:15] LABS: AFP 32.4 ng/mL; GA used in risk estimate Scan estimate; IVF Pregnancy No; Initial or repeat testing Initial testing; Insulin dependent diabetes No; Maternal Weight 146 lbs; Number of Fetuses 1; Physician Phone Number 802-748-7300; Prev Pregnancy w/NTD No; RECOMMENDED FOLLOW UP None.; Results Summary Normal risk
[2021-03-15 10:01] LABS: Buprenorphine Negative ng/mL (Cutoff: 5.0); Norbuprenorphine Negative ng/mL (Cutoff: 2.5)
== END 2021-03-12 02:56 | disposition home or self-care (01) ==
LOC: LBO 02:55
PROVIDERS: Advanced Practice Midwife; Visit Provider Advanced Practice Midwife
DX: Z34.82 Encounter for supervision of other normal pregnancy, second trimester (principal)
CPT/HCPCS: 36415; 80307; 86787; 86803; 86850; 86900; 86901; 87340; 87389; 82105; 84443; 85025; 86762; 86780; 87086

== ENCOUNTER 2021-03-12 12:40 | Outpatient (REF) | payer MEDICAID, SELFPAY ==
[2021-03-13 15:44] LABS: Chlamydia Result Negative (Negative); GC Result Negative (Negative)
== END 2021-03-12 12:41 | disposition home or self-care (01) ==
LOC: LBN 12:40
PROVIDERS: Visit Provider Advanced Practice Midwife
DX: Z34.91 Encounter for supervision of normal pregnancy, unspecified, first trimester (principal); N89.8 Other specified noninflammatory disorders of vagina
CPT/HCPCS: 87491; 87591; 87480; 87510; 87660

== ENCOUNTER 2021-04-16 00:33 | Outpatient (CLI) | payer MEDICAID, SELFPAY ==
--- NOTE | 2021-04-16 08:00 | DI.US_ITS ---
Exam(s) US OB 2-3 TRIMESTER EXAM: US OB 2-3 TRIMESTER CLINICAL HISTORY: ,[id number]. TECHNIQUE: Transabdominal obstetrical ultrasound performed. COMPARISON: US US OB 1ST TRIMESTER from 01/03/2021 US US OB 1ST TRIMESTER from 01/03/2021 FINDINGS: Transabdominal obstetrical ultrasound performed. FINDINGS: Number of fetuses: One. position: Vertex. Placental grade: 2 Placental location: Anterior no evidence of previa. BIOMETRIC DATA: BPD: 47 millimeters, 20+ 1 weeks HC: 179 millimeters, 20+ 2 weeks AC: 153 millimeters, 20+ 3 weeks FL: 33 millimeters, 20+ 2 weeks. Cisterna Magna: 4 millimeters Cerebellum: 2.1 cm EFW: 352 grms 52% Composite Age: 20+ 2 weeks EDC by US: 01 Sep 2021 Heart Rate: 153 BPM Amniotic fluid: Amount of fluid is visually within normal limits. ANATOMICAL SURVEY: Four-chambered heart: Unremarkable. LVOT: Unremarkable. RVOT: Unremarkable. Left-sided stomach: Unremarkable. urinary bladder: Unremarkable. Bilateral kidneys: Unremarkable. Three-vessel cord: Unremarkable. Cord insertion: Unremarkable. Umbilical artery velocity: Unremarkable. Posterior fossa:Unremarkable. ventricles: Unremarkable. nose: Unremarkable. lips: Unremarkable. palate: Unremarkable. spine: Unremarkable. Two arms and two legs: Unremarkable. IMPRESSION: 1. Single live intrauterine gestation as above. 2. Normal anatomic survey. DATA REPOSITORY:
== END 2021-04-16 00:53 ==
PROVIDERS: Visit Provider Advanced Practice Midwife
DX: Z34.92 Encounter for supervision of normal pregnancy, unspecified, second trimester (principal); Z3A.20 20 weeks gestation of pregnancy
CPT/HCPCS: 76805

== ENCOUNTER 2021-04-19 17:09 | Emergency (ER) | payer MEDICAID, SELFPAY ==
[2021-04-19 17:12] VITALS: BP 110/69; PULSE 85; TEMP 36.9; O2SAT 98
--- NOTE | 2021-04-19 17:30 | DI.RAD_ITS ---
Exam(s) XR KNEE RT 4V+ EXAM: XR KNEE RT 4V+ CLINICAL HISTORY: fall/pain. TECHNIQUE: 2D digital imaging was performed of the right knee. Four views obtained. AP, lateral, Me rchant and PA tunnel views were obtained. COMPARISON: No exams were available for comparison FINDINGS: BONES: No acute fracture is present. No bony destructive lesion is seen. JOINTS: The knee is normally aligned. No joint effusion is seen. SOFT TISSUE: Normal. IMPRESSION: Unremarkable radiographs of the right knee. DATA REPOSITORY: RADIATION DOSE DELIVERED:
--- NOTE | 2021-04-19 18:02 | NUR.NOTE ---
Nursing Note: Pt to radiology for knee xray & returned via w/c, no change in symptoms at this time.
--- NOTE | 2021-04-19 18:18 | DI.VRAD_ITS ---
PROCEDURE INFORMATION: Exam: XR Right Knee Exam date and time: 04/19/2021 5:38 PM Age: 20 years old Clinical indication: Other: Fall, pain TECHNIQUE: Imaging protocol: XR Right knee. Views: 4 or more views. COMPARISON: No relevant prior studies available. FINDINGS: Bones/joints: Normal. Soft tissues: Normal. IMPRESSION: No acute findings. Dictated and Authenticated by: Andrew Hart MD. Ordering:GENARO Neves MD
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
[2021-04-19 18:30] VITALS: BP 118/69; PULSE 88; RESP 18; TEMP 36.9; O2SAT 99
== END 2021-04-19 18:31 | disposition home or self-care (01) ==
PROVIDERS: Emergency Provider Physician Assistant
DX: M25.561 Pain in right knee (principal); X50.1XXA Overexertion from prolonged static or awkward postures, initial encounter; Z33.1 Pregnant state, incidental
CPT/HCPCS: 29505; 99283; 73564

== ENCOUNTER 2021-05-02 14:29 | Emergency (ER) | payer MEDICAID, SELFPAY ==
[2021-05-02 14:33] VITALS: BP 108/53; PULSE 100; RESP 14; TEMP 36.6; O2SAT 98
--- NOTE | 2021-05-02 15:10 | DI.US_ITS ---
Exam(s) US OB JACK WEIGHT EXAM: US OB JACK WEIGHT CLINICAL HISTORY: lower abd pain TECHNIQUE: Ultrasound performed using standard protocol. COMPARISON: US US OB 2-3 TRIMESTER from 04/16/2021 FINDINGS: Ob ultrasound was performed for lower abdominal pain. The patient had a recent 2nd trimester ultraso und which was unremarkable. biometry on today's examination is consistent with gestational age of 22 weeks 5 days and an ED C of August 31, 2021. There is a normal quantity of amniotic fluid visually. The JACK is 17. heart rate was 152 BPM. No placenta previa. No placental abruption or other placental abnormality. The ovaries appear normal bilaterally. Right ovary measures 27 x 18 x 19 millimeters and left ovary m easures 18 x 14 x 22 millimeters. Unremarkable Doppler evaluation of the ovaries. IMPRESSION: Unremarkable 2nd trimester OB ultrasound as described above. DATA REPOSITORY:
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
[2021-05-02 15:52] LABS: BUN 6 mg/dL (7-18); CREATININE 0.6 mg/dL (0.55-1.02); Calcium 8.3 mg/dL (8.5-10.1); Chloride 104 mmol/L (98-107); Glucose 87 mg/dL (74-106); Potassium 3.7 mmol/L (3.5-5.1); Sodium 136 mmol/L (136-145)
[2021-05-02 15:58] LABS: Bilirubin Negative (Negative); Blood Negative (Negative); Clarity Clear (Clear); Glucose Negative (Negative); Ketones Negative (Negative); Leukocyte Esterase Negative (Negative); Nitrite Negative (Negative); Specific Gravity 1.015 (1.005-1.025); Urobilinogen 0.2 EU/dL (Up TO 0.2)
[2021-05-02 16:05] LABS: HCT 36.9 % (36.0-46.0); HGB 11.8 g/dL (11.2-15.7); MCH 30.5 pg (27.0-33.0); MCV 95.3 fL (80-95); MPV 10.1 fL (8.0-11.0); Platelet Count 245 10^3/uL (130-400); RBC 3.87 10^6/uL (3.93-5.22); RDW 12.4 % (11.7-14.6); RDW-SD 43.1 fL; WBC 11.51 10^3/uL (4.4-10.8)
[2021-05-02] MEDS: ACETAMINOPHEN 1,000 MG/100 ML BTL 400 MG IVPB (16:08)
[2021-05-02] MEDS: Normal Saline 1,000 ML 150 ML IV (16:20)
[2021-05-02 17:26] VITALS: BP 101/60; PULSE 87; RESP 14; TEMP 36.9; O2SAT 98
[2021-05-02] MEDS: metroNIDAZOLE 500 MG TAB PO (17:41)
--- NOTE | 2021-05-03 09:49 | NUR.NOTE ---
Rosa M arthur called into [facility] in [place].
[2021-05-04 21:15] LABS: Chlamydia Result Negative (Negative); GC Result Negative (Negative)
== END 2021-05-02 17:55 | disposition home or self-care (01) ==
PROVIDERS: Emergency Provider Emergency Medicine
DX: O26.892 Other specified pregnancy related conditions, second trimester (principal); O23.592 Infection of other part of genital tract in pregnancy, second trimester; B96.89 Other specified bacterial agents as the cause of diseases classified elsewhere; Z3A.23 23 weeks gestation of pregnancy; K92.1 Melena
CPT/HCPCS: 36415; 76816; 80048; 85027; 86850; 86900; 86901; 87491; 87591; 96361; 96374; 99284; 81003; 87480; 87510; 87660; J0131

== ENCOUNTER 2021-05-22 23:04 | Emergency (ER) | payer MEDICAID, SELFPAY ==
--- NOTE | 2021-05-22 23:00 | RT.EKG_ITS ---
APPROVED REPORT Exam: Resting ECG Reason for Exam: chest pain Patient Location: E HR:94 bpm ECG Measurements Heart Rate 94 AXIS NH 128 P 59 QRSd 89 QRS 46 QT 352 T 26 QTc 441 Conclusion Sinus rhythm...normal P axis, V-rate 60- 99
[2021-05-22 23:12] VITALS: BP 121/63; PULSE 91; RESP 20; TEMP 36.1; O2SAT 99
[2021-05-22 23:17] VITALS: RESP 20
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
[2021-05-22 23:36] LABS: Abs Immature Grans 0.06 10^3/uL (0.0-0.06); Absolute Basophil Count 0.02 10^3/uL (0.0-0.2); Absolute Eosinophil Count 0.15 10^3/uL (0.0-0.7); Absolute Lymphocyte Count 2.57 10^3/uL (1.2-3.4); Absolute Monocyte Count 0.68 10^3/uL (0.1-0.8); BE (Venous) -2 mmol/L (-2-3); Basophils % 0.2; Eosinophils % 1.4; HCO3 (Venous) 23 mmol/L (23-28); HCT 31.6 % (36.0-46.0); HGB 10.2 g/dL (11.2-15.7); Immature Grans % 0.6; Lymphocytes % 24.1; MCH 30.7 pg (27.0-33.0); MCHC 32.3 % (32.0-36.0); MCV 95.2 fL (80-95); MPV 9.7 fL (8.0-11.0); Monocytes % 6.4; Neutrophils % 67.3; Nucleated RBC 0 %; O2 Sat (Venous) 96 %; Platelet Count 203 10^3/uL (130-400); RBC 3.32 10^6/uL (3.93-5.22); RDW-SD 44.5 fL; TCO2 (Venous) 22 mmol/L (24-29); WBC 10.68 10^3/uL (4.4-10.8); pCO2 (Venous) 38 mmHg (41-51); pH (Venous) 7.39 (7.31-7.41); pO2 (Venous) 72 mmHg
[2021-05-22] MEDS: Acetaminophen 500 MG TAB 1000 MG PO (23:49)
[2021-05-22 23:54] LABS: ALT 17 U/L (14-59); AST 11 U/L (15-37); Albumin 2.7 g/dL (3.4-5.0); Alkaline Phosphatase 67 U/L (46-116); BUN 7 mg/dL (7-18); Bilirubin, Total 0.3 mg/dL (0.2-1.0); CREATININE 0.6 mg/dL (0.55-1.02); Calcium 8.6 mg/dL (8.5-10.1); Chloride 105 mmol/L (98-107); Glucose 92 mg/dL (74-106); Magnesium 1.8 mg/dL (1.8-2.4); Potassium 3.6 mmol/L (3.5-5.1); Sodium 136 mmol/L (136-145); Total Protein 6.3 g/dL (6.4-8.2); Troponin I < 50 ng/L (<or=60)
[2021-05-23 00:11] LABS: D-Dimer 805 ng/mlFEU (<500)
== END 2021-05-23 00:50 | disposition home or self-care (01) ==
PROVIDERS: Emergency Provider Emergency Medicine
DX: O98.512 Other viral diseases complicating pregnancy, second trimester (principal); U07.1 COVID-19; M79.10 Myalgia, unspecified site; Z3A.25 25 weeks gestation of pregnancy; R07.9 Chest pain, unspecified
CPT/HCPCS: 36415; 80053; 82805; 93005; 99283; 83735; 84484; 85025; 85379; 93010

== ENCOUNTER 2021-06-04 02:30 | Outpatient (CLI) | payer MEDICAID, SELFPAY ==
[2021-06-04 13:52] LABS: HCT 31.8 % (36.0-46.0); HGB 10.2 g/dL (11.2-15.7); MCH 30.2 pg (27.0-33.0); MCHC 32.1 % (32.0-36.0); MCV 94.1 fL (80-95); MPV 9.5 fL (8.0-11.0); Platelet Count 224 10^3/uL (130-400); RBC 3.38 10^6/uL (3.93-5.22); RDW 12.3 % (11.7-14.6); RDW-SD 42.6 fL
[2021-06-04 14:00] LABS: Glucose,1 Hr (Glucola) 125 mg/dL (80-140)
== END 2021-06-04 02:31 | disposition home or self-care (01) ==
LOC: LBO 02:30
PROVIDERS: Visit Provider Advanced Practice Midwife
DX: Z34.92 Encounter for supervision of normal pregnancy, unspecified, second trimester (principal)
CPT/HCPCS: 36415; 82950; 85027

== ENCOUNTER 2021-07-05 07:32 | Observation (INO) | payer MEDICAID, SELFPAY ==
[2021-07-05 07:52] VITALS: BP 112/67; PULSE 110; RESP 14; TEMP 36.8
[2021-07-05 08:01] LABS: Source Nasal/Nares
[2021-07-05] MEDS: Normal Saline Flush 10 ML SYR IVP (08:15)
[2021-07-05] MEDS: Normal Saline 1,000 ML 125 ML IV (08:15)
--- NOTE | 2021-07-05 12:03 | W.PM.PROGNOT ---
Date of Service Date of service: 07/05/21 Time of Service: 12:04 Assessment and Plan Assessment and plan (1) Vomiting affecting : Status: Acute Assessment and plan: D/c home. Has visit already scheduled at tomorrow. Subjective Subjective Interval history since last seen: Pt has had diarrhea for a few days and then was vomiting all night and unable to keep liquids down. She came in for hydration. She was able to take a few sips of nohemy lisa without vomiting. She mostly slept throughout the morning here and is now feeling better. Objective Last Vital Signs Temp 98.2 F 07/05/21 07:52 Pulse 110 H 07/05/21 07:52 Resp 14 07/05/21 07:52 BP 112/67 07/05/21 07:52 Laboratory Results - last 24 hr 07/05/21 07:55 COVID-19 Source Nasal/Nares
[2021-07-05 12:46] LABS: COVID-19 PCR Negative (Negative)
== END 2021-07-05 12:45 | disposition home or self-care (01) ==
PROVIDERS: Obstetrics & Gynecology; Admitting Provider Obstetrics & Gynecology; PCP Nurse Practitioner; Visit Provider Obstetrics & Gynecology
DX: R11.10 Vomiting, unspecified (principal); Z20.822 Contact with and (suspected) exposure to COVID-19; Z3A.00 Weeks of gestation of pregnancy not specified
CPT/HCPCS: 87635; G0378

== ENCOUNTER 2021-07-09 01:04 | Outpatient (CLI) | payer MEDICAID, SELFPAY ==
--- NOTE | 2021-07-09 08:15 | DI.US_ITS ---
Exam(s) US OB JACK WEIGHT EXAM: US OB JACK WEIGHT CLINICAL HISTORY: covid infection in ,U07.1,O98.512. TECHNIQUE: Transabdominal obstetrical ultrasound performed. COMPARISON: US US OB JACK WEIGHT from 05/02/2021 FINDINGS:: Number of fetuses: One. position: Breech. Placental location: Anterior . No evidence of previa. BIOMETRIC DATA: BPD: 81mm = 32+5 weeks HC: 300 mm = 33+2 weeks AC: 276mm = 31+4 weeks FL: 61 mm = 31+5 weeks EFW: 1861 Gms = 28 % Composite Age: 32+2 weeks EDC by ultrasound: 01 Sep 2021 Heart Rate: 150BPM Amniotic fluid index: 17.0 cm. Amount of fluid is within normal limits. IMPRESSION: size and weight are within the expected range. DATA REPOSITORY:
== END 2021-07-09 01:24 ==
PROVIDERS: PCP Nurse Practitioner; Visit Provider Advanced Practice Midwife
DX: O98.512 Other viral diseases complicating pregnancy, second trimester (principal); U07.1 COVID-19; Z3A.32 32 weeks gestation of pregnancy
CPT/HCPCS: 76816

== ENCOUNTER 2021-07-13 00:02 | Outpatient (CLI) | payer MEDICAID, SELFPAY ==
--- NOTE | 2021-07-13 06:30 | DI.US_ITS ---
Exam(s) US OB JACK WEIGHT EXAM: US OB JACK WEIGHT CLINICAL HISTORY: growth,jack, covid, z34.90,O09.512,z98.891. TECHNIQUE: Transabdominal obstetrical ultrasound performed. COMPARISON: US US OB JACK WEIGHT from 07/09/2021 FINDINGS: Transabdominal obstetrical ultrasound performed. FINDINGS: Number of fetuses: One. position: Cephalic. Placental location: There is a grade 2 fundal and anterior placenta. No evidence of previa. BIOMETRIC DATA: BPD: 84 mm = 33 weeks 5 days HC: 302 mm = 33 weeks 4 days AC: 294 mm = 33 weeks 3 days FL: 62 mm = 32 weeks 1 EFW: 2112 grms 47% Composite Age: 33 weeks 2 days EDC: 08/29/2021 Heart Rate: 144BPM Amniotic fluid index: 18.7 cm. Visually, amount of fluid is within normal limits. IMPRESSION: 1. Single live intrauterine gestation as above. 2. Estimated weight is 2112gms. 3. Amniotic fluid index is 18.7 cm. Visually within normal limits. DATA REPOSITORY:
== END 2021-07-13 00:22 ==
PROVIDERS: PCP Nurse Practitioner; Visit Provider Obstetrics & Gynecology
DX: O98.513 Other viral diseases complicating pregnancy, third trimester (principal); U07.1 COVID-19; Z98.891 History of uterine scar from previous surgery
CPT/HCPCS: 76816

== ENCOUNTER 2021-08-02 16:12 | Outpatient (REF) | payer MEDICAID, SELFPAY ==
[2021-08-02 18:47] LABS: ALT 17 U/L (14-59); AST 14 U/L (15-37); Albumin 2.5 g/dL (3.4-5.0); Alkaline Phosphatase 133 U/L (46-116); Anion Gap 8.1 mmol/L (3-11); BUN 3 mg/dL (7-18); Bilirubin, Total 0.5 mg/dL (0.2-1.0); CO2 22.9 mmol/L (21.0-32.0); CREATININE 0.6 mg/dL (0.55-1.02); Calcium 8.1 mg/dL (8.5-10.1); Chloride 105 mmol/L (98-107); Glucose 88 mg/dL (74-106); Potassium 3.8 mmol/L (3.5-5.1); Sodium 136 mmol/L (136-145); Total Protein 5.6 g/dL (6.4-8.2)
[2021-08-04 12:34] LABS: COVID-19 RT-PCR UVMMC Result Negative (Negative)
== END 2021-08-02 16:13 | disposition home or self-care (01) ==
LOC: LBN 16:12
PROVIDERS: PCP Nurse Practitioner; Visit Provider Student in an Organized Health Care Education/Training Program
DX: J02.9 Acute pharyngitis, unspecified (principal); R05.9 Cough, unspecified; R09.81 Nasal congestion; R51.9 Headache, unspecified; E86.0 Dehydration; R59.0 Localized enlarged lymph nodes; Z20.822 Contact with and (suspected) exposure to COVID-19
CPT/HCPCS: 80053; 86308; U0003

== ENCOUNTER 2021-08-16 20:03 | Outpatient (REF) | payer MEDICAID, SELFPAY ==
[2021-08-16 18:53] LABS: *AMPHETAMINES SCREEN URINE Negative (Negative); *BARBITURATES SCREEN URINE Negative (Negative); *BENZODIAZEPINES SCREEN URINE Negative (Negative); Cannabinoids THC Negative (Negative); Cocaine Screen,Urine Negative (Negative); METHADONE URINE SCREEN Negative (Negative); OPIATES URINE SCREEN Negative (Negative)
[2021-08-16 18:54] LABS: Tricyclic Antidepressants Negative (Negative)
[2021-08-20 13:55] LABS: Chlamydia Result Negative (Negative); GC Result Negative (Negative)
[2021-08-22 11:12] LABS: Buprenorphine Negative ng/mL (Cutoff: 5.0); Norbuprenorphine Negative ng/mL (Cutoff: 2.5)
== END 2021-08-16 20:04 | disposition home or self-care (01) ==
LOC: LBN 20:03
PROVIDERS: PCP Nurse Practitioner; Visit Provider Advanced Practice Midwife
DX: O26.893 Other specified pregnancy related conditions, third trimester (principal); N89.8 Other specified noninflammatory disorders of vagina; Z36.85 Encounter for antenatal screening for Streptococcus B; Z3A.37 37 weeks gestation of pregnancy
CPT/HCPCS: 80307; 87491; 87591; 87081; 87480; 87510; 87660

== ENCOUNTER 2021-08-17 01:57 | Outpatient (RCR) | payer MEDICAID, SELFPAY ==
[2021-08-17] MEDS: Normal Saline Flush 10 ML SYR IVP (13:14)
[2021-08-17] MEDS: IRON SUCROSE COMPLEX 200 MG in Normal Saline 100 ML 440 MG IVPB (13:19)
== END 2021-09-11 23:59 | disposition home or self-care (01) ==
LOC: INF 01:57
PROVIDERS: PCP Nurse Practitioner; Visit Provider Advanced Practice Midwife
DX: O99.013 Anemia complicating pregnancy, third trimester (principal)
CPT/HCPCS: 96365; J1756

== ENCOUNTER 2021-08-27 23:46 | Observation (INO) | payer MEDICAID, SELFPAY ==
[2021-08-27 23:04] VITALS: BP 119/72; PULSE 110
[2021-08-27 23:08] VITALS: BP 119/72; PULSE 110; TEMP 36.9
[2021-08-27 23:35] LABS: ROM Plus Negative
--- NOTE | 2021-08-27 23:48 | W.OBNST ---
Date of service: 08/27/21 Time of Service: 22:49 NST Evaluation Reason for NST Reasons for Nonstress Test: OTHER, SEE COMMENT Reason for NST Other: Rule out labor Gestational Age Gestational Age in Weeks and Days: 39 Weeks and 2Days Test and Monitor Explained Test/Monitor Explained: Test Explained, Monitor Explained and Patient Verbalized Understanding Vital Signs Blood Pressure: 119/72 Pulse: 110 Temperature: 98.4 F Urine Results Urine Protein: Negative Urine Ketones: Negative Urine Glucose: Negative Urine Blood: Negative NST Information NST Interventions: None Comments: Fetus active making continuous heart rate tracing difficult to achieve NST Evaluation Patient States Movement: Present FHR Baseline: 130 Variability: Moderate 6-25 bpm Accelerations: 15x15 Decelerations: None Note NST Note Note: Patient called the on-call service to report leakage of vaginal fluid after voiding this evening. She reports onset of irregular painful contractions in the lower uterine segment and at the fundus. No gush of fluid no vaginal bleeding. She reports back pain and hip pain which has been an issue during this . She is scheduled for a repeat delivery on 08/29/2021 at 39 W4D EGA. ROM plus was negative. SVE: Closed long soft posterior vertex 0 station. I recommended observation for cervical change for the next several hours. I will offer patient Ambien for sleep and reassess cervix early in the morning or as needed during the evening. NST Reviewed and Verified by: Venus Sanchez
[2021-08-27 23:52] VITALS: BP 119/72; PULSE 110; TEMP 36.9
[2021-08-28 00:09] VITALS: BP 100/56; BP 98/53; PULSE 102; PULSE 110; RESP 18; TEMP 36.6
[2021-08-28] MEDS: Zolpidem 5 MG TAB PO (00:15)
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
[2021-08-28 08:02] LABS: HCT 33.5 % (36.0-46.0); HGB 10.6 g/dL (11.2-15.7); MCHC 31.6 % (32.0-36.0); MCV 92 fL (80-95); MPV 10.4 fL (8.0-11.0); Platelet Count 150 10^3/uL (130-400); RBC 3.66 10^6/uL (3.93-5.22); RDW 17.4 % (11.7-14.6)
--- NOTE | 2021-09-06 19:08 | W.OBNST ---
Date of service: 08/27/21 Time of Service: 18:08 NST Evaluation Reason for NST Reasons for Nonstress Test: OTHER, SEE COMMENT Reason for NST Other: Rule out labor Gestational Age Gestational Age in Weeks and Days: 39 Weeks and 2Days Test and Monitor Explained Test/Monitor Explained: Test Explained, Monitor Explained and Patient Verbalized Understanding Vital Signs Blood Pressure: 119/72 Pulse: 110 Temperature: 98.4 F Urine Results Urine Protein: Negative Urine Ketones: Negative Urine Glucose: Negative Urine Blood: Negative NST Information Date on Monitor: 08/27/21 Time on Monitor: 23:03 Date off Monitor: 08/27/21 Time off Monitor: 23:47 Total Time on Monitor: 44 NST Interventions: None NST Evaluation Patient States Movement: Present FHR Baseline: 130 Variability: Moderate 6-25 bpm Accelerations: 15x15 Decelerations: None NST Results: Reactive Note NST Note Note: Not in labor. Pt will return for scheduled repeat c/s later this week. NST Reviewed and Verified by: Venus Sanchez
[2021-09-06 19:09] VITALS: BP 119/72; PULSE 110; TEMP 36.9
== END 2021-08-28 07:59 | disposition home or self-care (01) ==
PROVIDERS: Admitting Provider Obstetrics & Gynecology Gynecology; PCP Nurse Practitioner; Visit Provider Obstetrics & Gynecology Gynecology
DX: O47.1 False labor at or after 37 completed weeks of gestation (principal); O26.893 Other specified pregnancy related conditions, third trimester; O34.211 Maternal care for low transverse scar from previous cesarean delivery; N85.8 Other specified noninflammatory disorders of uterus; O99.52 Diseases of the respiratory system complicating childbirth; Z3A.39 39 weeks gestation of pregnancy; J45.990 Exercise induced bronchospasm; O99.013 Anemia complicating pregnancy, third trimester; D64.9 Anemia, unspecified; O98.313 Other infections with a predominantly sexual mode of transmission complicating pregnancy, third trimester; A60.00 Herpesviral infection of urogenital system, unspecified; O99.333 Smoking (tobacco) complicating pregnancy, third trimester; F17.210 Nicotine dependence, cigarettes, uncomplicated; O99.343 Other mental disorders complicating pregnancy, third trimester; F32.A Depression, unspecified
CPT/HCPCS: 36415; 84112; 85027; 86850; 86900; 86901; 87635; U0003; 59025

== ENCOUNTER 2021-08-28 02:00 | Outpatient (CLI) | payer MEDICAID, SELFPAY ==
[2021-08-28 08:18] LABS: Source Nasal/Nares
[2021-08-28 13:19] LABS: COVID-19 PCR Negative (Negative)
== END 2021-08-28 02:01 | disposition home or self-care (01) ==
LOC: LBO 02:01
PROVIDERS: PCP Nurse Practitioner; Visit Provider Obstetrics & Gynecology
DX: Z20.822 Contact with and (suspected) exposure to COVID-19 (principal); Z01.818 Encounter for other preprocedural examination
CPT/HCPCS: 87635

== ENCOUNTER 2021-08-29 05:31 | Inpatient (IN) | payer MEDICAID, SELFPAY ==
[2021-08-29] VITALS (14 sets, daily range): BP systolic 93–131; BP diastolic 46–85; PULSE 72–84; RESP 12–20; TEMP 36.4–36.8; O2SAT 94–100; BMI 29.2
[2021-08-29] MEDS: Sodium Citrate 30 ML CUP PO (06:27)
[2021-08-29] MEDS: Lactated Ringers 1,000 ML 200 ML IV (06:27)
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
[2021-08-29] MEDS: ceFAZolin 2 GM/50 ML BAG IVPB (06:34)
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
[2021-08-29] MEDS: AZITHROMYCIN 500 MG in Normal Saline 250 ML 250 MG IVPB (07:34)
[2021-08-29] MEDS: Bupivacaine 0.25% Pres-Free 10 ML VIAL (07:52)
--- NOTE | 2021-08-29 08:28 | W.PM.OBCSECT ---
Date of service: 08/29/21 Time of Service: 08:29 Operative Note Operative Note Delivery Method: Scheduled DATE OF PROCEDURE: 08/29/21 PRE-OP DIAGNOSES: Prior . Short IC Period POST-OP DIAGNOSES: same PROCEDURE: Repeat low-transverse section SURGEON: Hilda Valentino Laminating Machine Operator Helper: Venus Sanchez Anesthesia: local (Quarter percent Marcaine infiltrated at incision) and spinal Estimated blood loss (mL): 500 Pathology: none sent Complications: None Patient was transported to: floor Patient's condition: stable Indications: Prior section, short IC period. Not a candidate for trial of labor Findings: Delivered a viable male . Normal-appearing tubes, ovaries, uterus Procedure Description: After full informed consent was obtained, patient was taken the operating suite with an IV running where she is placed in the seated position and spinal anesthesia administered, tested and found to be adequate. She was placed in the dorsal supine position with leftward tilt after anesthesia administered. She had a vaginal preparation and Rogers catheter inserted. She had pneumatic compression stockings for DVT prophylaxis. She had received 2 g of Ancef and 500 mg of Zithromax. She was prepped and draped in the usual sterile fashion. Transverse skin incision was made through her previous Pfannenstiel incision scar. Prior to incision, quarter percent Marcaine was infiltrated at the area for postoperative pain relief. Fascial incision was made with a scalpel and extended laterally bluntly. The rectus muscles were identified in the midline and split in the midline. Peritoneal incision was incised and extended superiorly and inferiorly. The bladder blade was inserted and there is no evidence of scar tissue. The vesicouterine peritoneum was identified tented up and the bladder flap created with meticulous sharp dissection. The bladder blade was reinserted and a low transverse uterine incision was made in the midline and extended bluntly laterally. There was artificial rupture of membranes for clear fluid. vertex delivered without trauma. There was evidence of a loose nuchal cord that was delivered through. Shoulders followed with ease. Three-vessel cord was noted clamped x2 and cut and the was handed off to the waiting pediatric team. At this point cord blood sample was obtained. Placenta was manually expressed from the uterus and found to be intact. The uterus was then exteriorized and cleared of all clot and debris. Uterine incision was closed using 0 Monocryl suture in a running locked fashion and found to be hemostatic. Uterus was returned to the abdomen. Abdomen was irrigated with copious amounts of normal saline and the fascial incision closed using 0 Vicryl suture in a running fashion. Subcutaneous tissue was irrigated and noted to be hemostatic. Subcu tissue was reapproximated with 3-0 Vicryl suture in a simple interrupted fashion and the skin edge reapproximated with 4-0 undyed Monocryl in a subcuticular fashion and Steri-Strips were placed. Sterile dressing was placed and the patient was in stable condition in the postoperative phase. Fluids are crystalloid per anesthesia. Rogers catheter is draining clear yellow urine. Patient was returned to the center in stable condition. EBL: 500 mL Fluids: Crystalloid per anesthesia Complications: None apparent Pathology: None sent. Findings: Delivery of viable male infant with appropriate Apgars, weight to be determined. Normal-appearing tubes ovaries and uterus.
[2021-08-29] MEDS: diphenhydrAMINE 50 MG/ML VIAL 12.5 MG IVP ×2 (11:28→21:44)
--- NOTE | 2021-08-29 14:56 | W.ANESPOSTOP ---
Postoperative Evaluation Date, Time and Location Date Performed: 08/29/21 Time Performed: 14:56 Patient Location: Obstetrics Vital Signs Most Recent Imported Vital Signs: Most Recent Vital Signs Temp Pulse Resp BP Pulse Ox 36.6 C 82 12 109/65 99 08/29/21 09:44 08/29/21 09:44 08/29/21 09:44 08/29/21 09:44 08/29/21 09:44 Pain Score Most Recent Pain Score: Most Recent Pain Score Pain Level 0 08/29/21 09:20 Assessment Mental Status: Awake (Alert & Oriented to Patient Baseline) Airway and Respiratory Function: Patent airway with normal (patient baseline) respiratory exam Cardiovascular Function: Hemodynamically Stable Hydration Status: Adequately Hydrated Nausea & Vomiting: No Nausea or Vomiting Pain: Pain is tolerable per patient Peripheral Nerve Block: Patient did not receive a nerve block
[2021-08-29] MEDS: Ketorolac 30 MG/ML VIAL IVP ×2 (16:40→21:45)
[2021-08-29] MEDS: Normal Saline Flush 10 ML SYR IVP (16:41)
[2021-08-29] MEDS: Sertraline 100 MG TAB PO (22:02)
[2021-08-29] MEDS: valACYclovir 1,000 MG TAB 1000 MG PO (22:02)
[2021-08-30 00:27] VITALS: BP 100/55; PULSE 74; RESP 18; TEMP 36.4
[2021-08-30] MEDS: Ketorolac 30 MG/ML VIAL IVP (04:00)
[2021-08-30] MEDS: Normal Saline Flush 10 ML SYR IVP (04:00)
[2021-08-30 05:37] VITALS: BP 115/54; PULSE 80; RESP 18; TEMP 36.6
[2021-08-30 07:30] VITALS: BP 95/51; PULSE 85; RESP 12; TEMP 36.9; O2SAT 99
[2021-08-30 07:32] LABS: HGB 10.1 g/dL (11.2-15.7)
--- NOTE | 2021-08-30 11:13 | W.PM.OBPNV1 ---
Date of service: 08/30/21 Time of Service: 10:13 Assessment and Plan Assessment and plan (1) Status post repeat low transverse section: Status: Acute Assessment and plan: Patient is post repeat low transverse section postoperative day #1. She is doing well. She has no issues or concerns. She does discharge home today. Circumcision will be performed for her today. She will continue to breast-feeding and be seen in the office in 2 and 6 weeks. All questions were answered. (2) Previous delivery affecting : Status: Acute Subjective Subjective Interval history: Patient seen and examined this morning. Doing well. Poor sleep last night due to Patient's Mood: Appropriate Exam Physical Exam Vital signs: Temp Pulse Resp BP Pulse Ox 98.4 F 85 12 95/51 L 99 08/30/21 07:30 08/30/21 07:30 08/30/21 07:30 08/30/21 07:30 08/30/21 07:30 Constitutional Constitutional: no acute distress and average body habitus HEENT Exam HEENT Exam: Normal Neck Exam Neck Exam: Normal Respiratory Exam Respiratory Exam: Normal Cardiovascular Exam Cardiovascular Exam: Normal Abdominal Exam Abdomen: Tender Fundal Exam Fundus: Below Umbilicus and Firm Extremities Exam Extremity Exam: Normal; negative Calf Tenderness DetailedPsychiatric Exam Psych Exam: Normal Affect, Normal Thougth Process, Cooperative, Good Insight and Good Judgement Results Hemoglobin/Hematocrit: Hgb 10.1 g/dL (11.2-15.7) L 08/30/21 07:13 Abnormal Lab Findings: Abnormal Labs 08/30/21 07:13 Hgb 10.1 L
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
== END 2021-08-30 15:00 | disposition home or self-care (01) | DRG 787 ==
LOC: SUR 06:28 → OBS 07:32 → SUR 08:59
PROVIDERS: Admitting Provider Obstetrics & Gynecology; PCP Nurse Practitioner; Visit Provider Obstetrics & Gynecology
PROC: 10D00Z1 Extraction of Products of Conception, Low, Open Approach (ICD-10-PCS; CPT 59514; principal; 2021-08-29 07:30)
DX: O34.211 Maternal care for low transverse scar from previous cesarean delivery (principal); O98.32 Other infections with a predominantly sexual mode of transmission complicating childbirth; O22.43 Hemorrhoids in pregnancy, third trimester; Z37.0 Single live birth; Z3A.39 39 weeks gestation of pregnancy; N85.8 Other specified noninflammatory disorders of uterus; A60.00 Herpesviral infection of urogenital system, unspecified; O99.02 Anemia complicating childbirth; D64.9 Anemia, unspecified; O99.824 Streptococcus B carrier state complicating childbirth; O99.334 Smoking (tobacco) complicating childbirth; F17.210 Nicotine dependence, cigarettes, uncomplicated; O99.344 Other mental disorders complicating childbirth; F32.A Depression, unspecified; O99.52 Diseases of the respiratory system complicating childbirth; O99.62 Diseases of the digestive system complicating childbirth; J45.990 Exercise induced bronchospasm; R11.0 Nausea; R10.9 Unspecified abdominal pain
CPT/HCPCS: 59514; 36415; 85018; J0456; J0690; J1200; J1885; J2370; J2405; J3010

== ENCOUNTER 2021-10-08 18:49 | Emergency (ER) | payer MEDICAID, SELFPAY ==
[2021-10-08 18:58] VITALS: BP 106/61; PULSE 72; RESP 14; TEMP 37.1; O2SAT 96
[2021-10-08 19:02] VITALS: RESP 14
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
== END 2021-10-17 01:38 | disposition home or self-care (01) ==
PROVIDERS: Emergency Provider Emergency Medicine; PCP Nurse Practitioner
DX: D17.79 Benign lipomatous neoplasm of other sites (principal)
CPT/HCPCS: 81025; 99284; 99282

== ENCOUNTER 2021-10-09 18:21 | Outpatient (REF) | payer MEDICAID, SELFPAY ==
[2021-10-09 22:02] LABS: Bilirubin Negative (Negative); Blood Large (Negative); Clarity Clear (Clear); Glucose Negative (Negative); Ketones Trace mg/dL (Negative); Leukocyte Esterase Trace (Negative); Nitrite Negative (Negative); Specific Gravity >= 1.030 (1.005-1.025); Urobilinogen 0.2 EU/dL (Up TO 0.2)
[2021-10-09 22:27] LABS: Bacteria Few HPF (Negative); C & S Indicated? Yes; Casts Negative LPF (Negative); Crystals Negative HPF (Negative); Epithelial Cells Few HPF (Negative); Mucus Negative (Negative); RBC Negative HPF (0-2)
[2021-10-11 11:51] LABS: COVID-19 RT-PCR UVMMC Result Presumptive Positive (Negative)
== END 2021-10-09 18:22 | disposition home or self-care (01) ==
LOC: LBN 18:21
PROVIDERS: PCP Nurse Practitioner; Visit Provider Physician Assistant
DX: R30.0 Dysuria (principal); R39.89 Other symptoms and signs involving the genitourinary system; Z20.822 Contact with and (suspected) exposure to COVID-19
CPT/HCPCS: U0003; 81003; 81015; 87086; 87480; 87510; 87660

== ENCOUNTER 2021-10-28 20:54 | Emergency (ER) | payer MEDICAID, SELFPAY ==
[2021-10-28 20:57] VITALS: BP 121/75; PULSE 100; RESP 18; TEMP 37.1; O2SAT 98
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
[2021-10-28] MEDS: Penicillin V POTASSIUM 500 MG TAB, 4 TABS/BTL PO (21:12)
== END 2021-10-28 21:22 | disposition home or self-care (01) ==
PROVIDERS: Emergency Provider Student in an Organized Health Care Education/Training Program; PCP Nurse Practitioner
DX: K08.89 Other specified disorders of teeth and supporting structures (principal)
CPT/HCPCS: 64400

== ENCOUNTER 2021-10-29 17:24 | Outpatient (REF) | payer MEDICAID, SELFPAY ==
[2021-10-31 14:34] LABS: Chlamydia Result Negative (Negative); GC Result Negative (Negative)
== END 2021-10-29 17:25 | disposition home or self-care (01) ==
LOC: LBN 17:24
PROVIDERS: PCP Nurse Practitioner; Visit Provider Obstetrics & Gynecology
DX: Z11.3 Encounter for screening for infections with a predominantly sexual mode of transmission (principal); Z30.8 Encounter for other contraceptive management
CPT/HCPCS: 87491; 87591

== ENCOUNTER 2021-11-21 18:48 | Outpatient (REF) | payer MEDICAID, SELFPAY | END 2021-11-21 18:49 | disposition home or self-care (01) | LOC: LBN 18:48 | PROVIDERS: PCP Nurse Practitioner; Visit Provider Obstetrics & Gynecology | DX: R30.0 Dysuria (principal) | CPT/HCPCS: 87086 ==

== ENCOUNTER 2021-11-30 18:26 | Outpatient (REF) | payer MEDICAID, SELFPAY ==
[2021-12-02 13:22] LABS: COVID-19 RT-PCR UVMMC Result Negative (Negative)
== END 2021-11-30 18:27 | disposition home or self-care (01) ==
LOC: LBN 18:26
PROVIDERS: PCP Nurse Practitioner; Visit Provider Physician Assistant Medical
DX: J02.9 Acute pharyngitis, unspecified (principal); Z20.822 Contact with and (suspected) exposure to COVID-19; J06.9 Acute upper respiratory infection, unspecified
CPT/HCPCS: 87635; U0003; 87070

== ENCOUNTER 2021-12-03 10:08 | Emergency (ER) | payer MEDICAID, SELFPAY ==
[2021-12-03 10:38] VITALS: BP 107/72; PULSE 85; RESP 17; TEMP 36.7; O2SAT 99
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
[2021-12-03] MEDS: Acetaminophen 500 MG TAB 1000 MG PO (11:28)
[2021-12-03] MEDS: Ibuprofen 600 MG TAB PO (11:29)
[2021-12-05 14:29] LABS: COVID-19 RT-PCR UVMMC Result Negative (Negative)
--- NOTE | 2021-12-05 17:12 | NUR.NOTE ---
Nursing Note: Called PT and gave her, her negative covid results.
== END 2021-12-03 11:41 | disposition home or self-care (01) ==
PROVIDERS: Emergency Provider Physician Assistant; PCP Nurse Practitioner
DX: J02.9 Acute pharyngitis, unspecified (principal); Z20.822 Contact with and (suspected) exposure to COVID-19
CPT/HCPCS: 87880; 99282; U0003; 87081

== ENCOUNTER 2021-12-04 13:45 | Outpatient (CLI) | payer MEDICAID, SELFPAY ==
[2021-12-04 13:48] LABS: Abs Immature Grans 0.02 10^3/uL (0.0-0.06); Absolute Basophil Count 0.03 10^3/uL (0.0-0.2); Absolute Eosinophil Count 0.21 10^3/uL (0.0-0.7); Absolute Lymphocyte Count 1.91 10^3/uL (1.2-3.4); Absolute Monocyte Count 0.36 10^3/uL (0.1-0.8); Absolute Neutrophil Count 2.56 10^3/uL (1.2-6.7); Basophils % 0.6; Eosinophils % 4.1; HCT 38.5 % (36.0-46.0); HGB 12.7 g/dL (11.2-15.7); Immature Grans % 0.4; Lymphocytes % 37.5; MCH 29.9 pg (27.0-33.0); MCV 91 fL (80-95); MPV 9.5 fL (8.0-11.0); Monocytes % 7.1; Neutrophils % 50.3; Platelet Count 211 10^3/uL (130-400); RBC 4.25 10^6/uL (3.93-5.22); RDW 13.2 % (11.7-14.6); RDW-SD 43.7 fL; WBC 5.09 10^3/uL (4.4-10.8)
[2021-12-04 14:56] LABS: Source Nasal/Nares
[2021-12-04 16:19] LABS: COVID-19 PCR Negative (Negative)
== END 2021-12-04 13:46 | disposition home or self-care (01) ==
LOC: LBO 13:45
PROVIDERS: PCP Nurse Practitioner; Visit Provider Obstetrics & Gynecology
DX: Z30.09 Encounter for other general counseling and advice on contraception (principal); Z20.822 Contact with and (suspected) exposure to COVID-19; Z01.818 Encounter for other preprocedural examination; Z01.812 Encounter for preprocedural laboratory examination
CPT/HCPCS: 36415; 86850; 86900; 86901; 87635; 85025

== ENCOUNTER 2021-12-05 08:14 | Day surgery (SDC) | payer MEDICAID, SELFPAY ==
--- NOTE | 2021-12-04 15:23 | ANES_ITS ---
Date of service: 12/04/21 Time of Service: 15:23 Anesthesia Note Report Anesthesia Note: I was made aware of this patient this afternoon. She is scheduled for a laparoscopic tubal ligation for tomorrow 12/05. The patient has a history of exercise induced asthma since childhood and has recently sought care at an outpatient urgent care and the [facility] ED. The patient was reporting upper respiratory symptoms and diarrhea starting a few days prior per the ED note. Kee parris noted that her lungs were CTA bilaterally and felt that this was a pharyngitis, possibly viral. The note discusses that the patient notified them of her upcoming surgery and discussions with the surgical team with assurances this would not delay or postpone her surgery. Discussing the progression of this case with our preoperative RN and reviewing notes related to her case, I see that the patient was already postponed due to these symptoms by Je Saeed based upon the ED visit and the reported symptoms at this time. The [facility] called notified our office of her recent ED visit and we relayed to them the need for two week postponement, however, it appears that the patient called to explain that she had not been sick and the her allergy medicine cleared up all of her acute symptoms. I called Dr. Valentino today and discussed the case and the risk if this is a recently resolved URI, I then proceeded to call the patient and explain the same. The patient adamantly denies that she had an upper respiratory infection, that while her significant other had similar symptoms on 11/30 and was diagnosed with strep throat with a positive test, she has had multiple negative tests. The patient reports that within 20 minutes of taking her benadryl all of her symptoms including her wheezing and her sore throat resolved. The patient is insistent that she wants her surgery performed and reported to me that her ED symptoms were taken out of context. I discussed the case with my coworkers and Dr. Valentino again and due to the patient's denial of symptoms we have decided to proceed. I called the patient again and rediscussed her recent course and also discussed the risks associated with undergoing a general anesthetic with an endotracheal intubation if she were to have had a recent URI on top of her chronic reactive airway disease. She again reports that she had allergies and denies recent URI. I let her know that our preoperative RN would reach out to her and she could proceed so long as she remained asymptomatic and her COVID test came back negaitve.
[2021-12-05] VITALS (10 sets, daily range): BP systolic 84–107; BP diastolic 44–70; PULSE 62–81; RESP 9–18; TEMP 36.4–36.9; O2SAT 95–99; BMI 26.8
[2021-12-05] MEDS: Lactated Ringers 1,000 ML 80 ML IV (08:47)
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
--- NOTE | 2021-12-05 11:36 | FALL_PTH ---
PATIENT: Lawanda Mcdaniel LOC: [facility] U#:[id number] AGE/SX: 21/F ROOM: RE12/05/[address]: Hilda Valentino DO : 2000 BED: DIS: 12/05/2021 SPEC #: [id number] RECD: 12/05/21 12:51 STATUS: [facility] #: [id number] JI: 12/05/21 11:[address]: Hilda Valentino DEPT: Surgical Specimen RECD BY: Verena Vogel ENTERED: 12/05/21 12:52 SP TYPE: Fall OTHR DR: Anna Johansen APRN Tissues: 1 - FALLOPIAN TUBE (STERILIZATION) 2 - FALLOPIAN TUBE (STERILIZATION) Procedures: GROSS AND MICRO LEVEL 2 Comments: [id number]
--- NOTE | 2021-12-05 11:49 | W.PM.OP ---
Date of service: 12/05/21 Time of Service: 11:49 Operative Note Operative Note DATE OF PROCEDURE: 12/05/21 PRE-OP DIAGNOSIS: Undesired fertility POST-OP DIAGNOSIS: same PROCEDURE: Laparoscopic bilateral salpingectomy SURGEON: Hilda Valentino ASSISTING SURGEON: Venus Sanchez ANESTHESIA TYPE: General LMA/ETT Refer to Anesthesia Record ESTIMATED BLOOD LOSS: 10 PATHOLOGY: other (1. Right fallopian tube 2. Left fallopian tube) COMPLICATIONS: None Patient was transported to: PACU Patient's condition: stable Implants: None Indications: Undesired fertility Findings: IUD strings in appropriate location. Normal-appearing fallopian tubes. Normal-appearing ovaries. Retroflexed uterus. Procedure Description: After full informed consent was obtained patient was taken the operating suite with an IV running where she is placed in the dorsal supine position and endotracheal intubation performed for the administration of general anesthesia with ease. She was then placed in the modified dorsolithotomy position in [facility] stirrups and prepped and draped in the usual sterile fashion. Exam under anesthesia revealed a uterus that was retroflexed and IUD string palpable at the cervical os. At this point a speculum was inserted into the vaginal vault for identification of the cervix. A single-tooth tenaculum was used to grasp the anterior lip of the cervix. At this point a speculum was removed and attention was turned to the abdomen. Quarter percent Marcaine was infiltrated at the umbilical area and her previous umbilical incision was incised. The anterior abdomen was elevated and a varies needle inserted into the abdomen. With a maximum pressure of 15 mmHg a pneumoperitoneum was created with CO2 gas. At this point a bladeless 12 mm sleeve and trocar were inserted under direct visualization into the abdomen. Abdomen was noted be atraumatic. There is a tiny band of omental tissue adherent to the anterior abdominal wall which is not in the surgical field. A second and third right and left lower quadrant trocar site was placed after infiltration of quarter percent Marcaine under direct visualization. The uterus was identified as were the fallopian tubes and ovaries. Initially the right fallopian tube was elevated and cautery transected. Right fallopian tube was removed from the abdomen through the 12 mm port. Similar procedure was carried out on the left fallopian tube. Pedicles were noted to be hemostatic. At this point the procedure was terminated. Pneumoperitoneum was released. Trochars were removed from the abdomen. Fascial incision was closed using 0 Vicryl suture in a simple interrupted fashion. Skin edges were reapproximated with 4-0 undyed Monocryl and Steri-Strips and sterile dressings were placed. At this point the single-tooth tenaculum was removed from the cervix and the patient was returned to the dorsal supine position. She woke from anesthesia with ease. She was taken to the recovery room in stable condition. EBL: 10 and bilateral Complications: None apparent Findings: Retroflexed uterus. Normal-appearing tubes and ovaries. Complications: None apparent Pathology: 1. Right fallopian tube 2. Left fallopian tube.
[2021-12-05] MEDS: Bupivacaine 0.25% Pres-Free 30 ML VIAL (11:56)
--- NOTE | 2021-12-05 13:06 | W.ANESPOSTOP ---
Postoperative Evaluation Date, Time and Location Date Performed: 12/05/21 Time Performed: 11:42 Patient Location: PACU Vital Signs Most Recent Imported Vital Signs: Most Recent Vital Signs Temp Pulse Resp BP Pulse Ox 36.5 C 72 17 91/61 L 98 12/05/21 12:59 12/05/21 12:59 12/05/21 12:59 12/05/21 12:59 12/05/21 12:59 Pain Score Most Recent Pain Score: Most Recent Pain Score Pain Level 5 12/05/21 12:59 Assessment Mental Status: Awake (Alert & Oriented to Patient Baseline) Airway and Respiratory Function: Patent airway with normal (patient baseline) respiratory exam Cardiovascular Function: Hemodynamically Stable Hydration Status: Adequately Hydrated Nausea & Vomiting: No Nausea or Vomiting Pain: Pain is tolerable per patient Peripheral Nerve Block: Patient did not receive a nerve block
[2021-12-05] MEDS: oxyCODONE 5 mg/Acetaminophen 325 mg TAB PO (13:19)
== END 2021-12-05 14:00 | disposition home or self-care (01) ==
PROVIDERS: PCP Nurse Practitioner; Visit Provider Obstetrics & Gynecology
PROC: (CPT 58661; principal; 2021-12-05 10:00)
DX: Z30.2 Encounter for sterilization (principal)
CPT/HCPCS: 58661; 81025; 88302; J1100; J1885; J2405; J2704; J3010

== ENCOUNTER 2022-01-17 14:47 | Outpatient (REF) | payer MEDICAID, SELFPAY ==
[2022-01-18 15:42] LABS: Chlamydia Result Negative (Negative); GC Result Negative (Negative)
== END 2022-01-17 14:48 | disposition home or self-care (01) ==
LOC: LBN 14:47
PROVIDERS: PCP Nurse Practitioner; Visit Provider Obstetrics & Gynecology
DX: N89.8 Other specified noninflammatory disorders of vagina (principal); Z11.3 Encounter for screening for infections with a predominantly sexual mode of transmission
CPT/HCPCS: 87491; 87591; 87480; 87510; 87660

== ENCOUNTER 2022-01-23 15:10 | Emergency (ER) | payer MEDICAID, SELFPAY ==
[2022-01-23 15:13] VITALS: BP 122/62; PULSE 88; RESP 16; TEMP 36.6; O2SAT 97
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
== END 2022-01-23 15:37 | disposition home or self-care (01) ==
PROVIDERS: Emergency Provider Emergency Medicine; PCP Nurse Practitioner
DX: K14.6 Glossodynia (principal)
CPT/HCPCS: 99283; 99284

== ENCOUNTER 2022-02-17 20:25 | Emergency (ER) | payer MEDICAID, SELFPAY ==
[2022-02-17 20:26] VITALS: BP 107/77; PULSE 90; RESP 14; TEMP 37.2; O2SAT 97
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
[2022-02-17 20:49] LABS: Bilirubin Negative (Negative); Blood Negative (Negative); Clarity Sl Cloudy (Clear); Glucose Negative (Negative); Ketones Negative (Negative); Leukocyte Esterase Negative (Negative); Nitrite Negative (Negative); Urobilinogen 0.2 EU/dL (Up TO 0.2); pH 7.5 (5-8)
[2022-02-17 21:07] LABS: Abs Immature Grans 0.02 10^3/uL (0.0-0.06); Absolute Basophil Count 0.03 10^3/uL (0.0-0.2); Absolute Eosinophil Count 0.15 10^3/uL (0.0-0.7); Absolute Lymphocyte Count 1.95 10^3/uL (1.2-3.4); Absolute Monocyte Count 0.44 10^3/uL (0.1-0.8); Absolute Neutrophil Count 5.33 10^3/uL (1.2-6.7); Basophils % 0.4; Eosinophils % 1.9; HCT 40.1 % (36.0-46.0); HGB 13.1 g/dL (11.2-15.7); Immature Grans % 0.3; Lymphocytes % 24.6; MCH 29.7 pg (27.0-33.0); MCHC 32.7 % (32.0-36.0); MCV 91 fL (80-95); MPV 10.1 fL (8.0-11.0); Monocytes % 5.6; Neutrophils % 67.2; Platelet Count 203 10^3/uL (130-400); RBC 4.41 10^6/uL (3.93-5.22); RDW 11.7 % (11.7-14.6); RDW-SD 38.8 fL; WBC 7.92 10^3/uL (4.4-10.8)
[2022-02-17 21:29] LABS: ALT 69 U/L (14-59); AST 138 U/L (15-37); Albumin 3.7 g/dL (3.4-5.0); Alkaline Phosphatase 84 U/L (46-116); Anion Gap 8.3 mmol/L (3-11); BUN 20 mg/dL (7-18); Bilirubin, Total 0.8 mg/dL (0.2-1.0); CO2 28.7 mmol/L (21.0-32.0); CREATININE 1.2 mg/dL (0.55-1.02); Calcium 8.5 mg/dL (8.5-10.1); Chloride 106 mmol/L (98-107); Estimated GFR 66.05 (mL/min/1.73m2); Glucose 114 mg/dL (74-106); Lipase 104 U/L (73-393); Potassium 3.8 mmol/L (3.5-5.1); Sodium 143 mmol/L (136-145); Total Protein 6.6 g/dL (6.4-8.2)
[2022-02-17] MEDS: Normal Saline 1,000 ML 1000 ML IV (21:30)
[2022-02-17] MEDS: Ketorolac 30 MG/ML VIAL IVP (21:30)
[2022-02-17] MEDS: ACETAMINOPHEN 1,000 MG/100 ML BTL 400 MG IVPB (21:31)
[2022-02-17 22:55] VITALS: BP 112/80; PULSE 88; RESP 14; O2SAT 98
== END 2022-02-17 23:06 | disposition home or self-care (01) ==
PROVIDERS: Emergency Provider Physician Assistant; PCP Nurse Practitioner
DX: R10.11 Right upper quadrant pain (principal); Z90.49 Acquired absence of other specified parts of digestive tract; Z98.51 Tubal ligation status
CPT/HCPCS: 36415; 80053; 81025; 83690; 96361; 96374; 96375; 99284; 81003; 85025; J0131; J1885

== ENCOUNTER → 2022-02-18 08:11 | Outpatient (CLI) | payer MEDICAID, SELFPAY ==
--- NOTE | 2022-02-18 | DI.US_ITS ---
Exam(s) US ABDOMEN LIMITED EXAM: US ABDOMEN LIMITED CLINICAL HISTORY: RUQ ABD PAIN TECHNIQUE: Ultrasound abdomen performed using standard protocol. COMPARISON: US US OB JACK WEIGHT from 07/13/2021 FINDINGS: There is no ascites evident. LIVER: There are no hepatic lesions evident nor dilatation of intrahepatic ducts. GALLBLADDER/BILIARY: There are multiple gallstones in the gallbladder lumen and gallbladder neck. Ga llbladder wall does not appear edematous and there is no pericolic fluid. However, the patient was t randal over this area during scanning today. The common hepatic duct isnot dilated, measuring 3-4mm at the level of emma hepatis. PANCREAS: There is no evidence of pancreatic mass nor dilatation of the pancreatic duct. RIGHT KIDNEY:No evidence of solid mass, calculus, nor hydronephrosis. No cortical cysts evident. IMPRESSION: 1. Cholelithiasis. There are multiple gallstones in the lower gallbladder lumen near the neck. The re is no obvious gallbladder wall edema but the patient was tender over this area during scanning tod ay. The common hepatic duct is not dilated. 2. No other significant ultrasound findings in the right upper quadrant. 3. There is no ascites. DATA REPOSITORY:
== END ==
PROVIDERS: PCP Nurse Practitioner; Visit Provider Physician Assistant
DX: K80.20 Calculus of gallbladder without cholecystitis without obstruction (principal)
CPT/HCPCS: 76705

== ENCOUNTER 2022-02-18 08:53 | Inpatient (IN) | payer MEDICAID, SELFPAY ==
[2022-02-18] VITALS (15 sets, daily range): BP systolic 94–109; BP diastolic 61–74; PULSE 63–87; RESP 12–18; TEMP 35.8–36.7; O2SAT 93–100; BMI 25.8
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
[2022-02-18 09:53] LABS: Source Nasal/Nares
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
[2022-02-18 09:56] LABS: Abs Immature Grans 0.01 10^3/uL (0.0-0.06); Absolute Basophil Count 0.03 10^3/uL (0.0-0.2); Absolute Lymphocyte Count 0.98 10^3/uL (1.2-3.4); Absolute Monocyte Count 0.29 10^3/uL (0.1-0.8); Absolute Neutrophil Count 2.17 10^3/uL (1.2-6.7); Basophils % 0.8; Eosinophils % 2.8; HCT 40.6 % (36.0-46.0); HGB 13.3 g/dL (11.2-15.7); Immature Grans % 0.3; Lymphocytes % 27.4; MCH 29.8 pg (27.0-33.0); MCHC 32.8 % (32.0-36.0); MCV 91 fL (80-95); MPV 9.9 fL (8.0-11.0); Monocytes % 8.1; Neutrophils % 60.6; Platelet Count 198 10^3/uL (130-400); RBC 4.46 10^6/uL (3.93-5.22); RDW 11.7 % (11.7-14.6); RDW-SD 38.9 fL; WBC 3.58 10^3/uL (4.4-10.8)
[2022-02-18 10:14] LABS: ALT 665 U/L (14-59); AST 689 U/L (15-37); Albumin 3.6 g/dL (3.4-5.0); Alkaline Phosphatase 122 U/L (46-116); Anion Gap 8.4 mmol/L (3-11); BUN 14 mg/dL (7-18); Bilirubin, Total 1.2 mg/dL (0.2-1.0); CO2 24.6 mmol/L (21.0-32.0); CREATININE 0.8 mg/dL (0.55-1.02); Calcium 8.3 mg/dL (8.5-10.1); Chloride 109 mmol/L (98-107); Estimated GFR 107.44 (mL/min/1.73m2); Glucose 95 mg/dL (74-106); Lipase 104 U/L (73-393); Potassium 4.1 mmol/L (3.5-5.1); Sodium 142 mmol/L (136-145); Total Protein 6.4 g/dL (6.4-8.2)
[2022-02-18 10:30] LABS: COVID-19 PCR Negative (Negative)
[2022-02-18] MEDS: PIPERACILLIN/TAZO 3.375 GM in Normal Saline 50 ML IVPB (10:40)
[2022-02-18] MEDS: MORPHine 4 MG/ML SYR IVP (10:40)
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
[2022-02-18] MEDS: HYDROmorphone 2 MG/ML SYR 1 MG IVP ×2 (13:08→21:56)
[2022-02-18] MEDS: Lactated Ringers 1,000 ML 30 ML IV (15:35)
[2022-02-18] MEDS: ceFAZolin 2 GM/50 ML BAG 200 GM (15:51)
[2022-02-18] MEDS: Bupivacaine 0.25% Pres-Free 30 ML VIAL ×2 (16:00→18:39)
--- NOTE | 2022-02-18 16:09 | GB_PTH ---
PATIENT: Lawanda Mcdaniel LOC: MS Desai#:[id number] AGE/SX: 21/F ROOM: RE02/20/[address]: Andrade Mendenhall MD : [id number] BED: A DIS: 02/24/2022 SPEC #: [id number] RECD: 02/19/22 12:33 STATUS: LAURIE RELai #: [id number] JI: 02/18/22 16:[address]: Andrade Mendenhall DEPT: Surgical Specimen RECD BY: Koki Bertrand ENTERED: 02/19/22 12:34 SP TYPE: GB OTHR DR: Anna Johansen APRN Tissues: 1 - GALLBLADDER Procedures: GROSS AND MICRO LEVEL 3 Comments: [id number]
[2022-02-18] MEDS: Cellulose,Oxidized 4X8 1 PACKET MC (17:31)
--- NOTE | 2022-02-18 19:04 | ROE_ITS ---
Date of service: 02/18/22 Time of Service: 19:04 Operative Note Operative Note DATE OF PROCEDURE: 02/18/22 PRE-OP DIAGNOSIS: Acute cholecystitis POST-OP DIAGNOSIS: same PROCEDURE: Open cholecystectomy with primary repair of common bile duct injury SURGEON: Andrade Mendenhall ASSISTING SURGEON: Yasmin Nieves CHANNEL INSTALLER: Margarita Low ANESTHESIA TYPE: Local By Surgeon and General LMA/ETT Refer to Anesthesia Record ESTIMATED BLOOD LOSS: 100 PATHOLOGY: other (Gallbladder) COMPLICATIONS: Other (Common bile duct transection) Patient was transported to: PACU Patient's condition: stable Indications: Yohannes is a 21-year-old woman with acute onset of right upper quadrant pain and associated nausea and vomiting.. She was seen in the emergency department yesterday. She had some mild improvement of her symptoms, but they returned overnight. She underwent an ultrasound of the right upper quadrant that demonst rated cholelithiasis, with a positive sonographic Spaulding sign. She was tender on physical exam, and I believe she was suffering from acute cholecystitis. Findings: Inflammation of the gallbladder neck with shortened cystic duct Procedure Description: After the induction of general anesthesia, I prepped and draped the anterior abdominal wall in the usual fashion. I started with a midline supraumbilical incision and dissected down to the umbilical ring. I grasped the fascia with Vlad clamps and elevated into the operative field. I incised the fascia sharply, and entered the peritoneal cavity under direct vision. Next, using Vicryl stitches, I affixed a 12 mm on operating port in the umbilical position. I insufflated the peritoneal cavity, and inserted a 5 mm 30 degree scope. There was no evidence of any injury created upon entry into the peritoneal cavity. Next, under direct vision of the laparoscope I placed a 5 mm port in the mid epigastric position, as well as 2 ports in the right upper quadrant. Next, the patient was placed in some reverse Trendelenburg positioning with the left side down. The gallbladder dome was grasped and elevated cephalad. Next I turned my attention to dissection of the gallbladder infundibulum. There were some adhesions involving the omentum here that were easily lysed. As I dissected down around the infundibulum, I encountered the cystic duct. Working in a lateral to medial fashion, I began dissecting the duct. I then dissected towards the triangle of Cahlo and identified a second tubular structure heading towards the gallbladder. I was able to see the liver through this window, and I doubly clipped and divided what I thought was the cystic duct and artery. As I began dissecting the infundibulum up towards the gallbladder body, it became apparent that the cystic duct stump was headed towards the hilar plate. I continue with some gentle dissection to better expose this. At that point, it was clear to me that this was actually the common bile duct, and I had completely transected it just distal to an extremely short cystic duct. At that point, I called my partner to the operating room to confirm my suspicion. She agreed. Therefore, I converted the operation to an open procedure. I first remove all port sites under the direct vision of the laparoscope. Then, I made a right upper quadrant subcostal incision. I dissected down to the fascia which I incised along the length of the incision. I took great care to divide the rectus abdominis muscle and identifying control the superior epigastric artery within the rectus sheath. Once this dissection was complete, I opened the posterior fascia and peritoneum along the length of the incision. Next, I established a Bookwalter retractor for better exposure. I then grasped at the dome of the gallbladder and dissected down towards the cystic duct and artery. Once this dissection was complete, you surgical clip to control the gallbladder high off the cystic duct taking great care to preserve as much common bile duct as possible. I sharply excised the gallbladder and passed it off the field as a specimen. Next, I turned my attention to repair of the transected common bile duct. I identified the distal portion, and remove the clips. The mucosa was healthy appearing. I performed a minimal amount of dissection to expose the adventitia. Next, using interrupted 5-0 Prolene stitches, I reapproximated the posterior medial rai. An appropriately sized T-tube was not available. Therefore, I cut a ureteral stent to length and used a Prolene stitch to identify the midportion (much like an emergency vascular shunt). I then inserted the afferent and efferent limbs of the stent into the proximal and distal bile duct. I then completed the anastomosis with more interrupted Prolene stitches along the anterior lateral wall. Once all of the sutures were placed, and the stent was well seated, I tied the stitches. I irrigated the surgical field. It was hemostatic. There was no bile drainage from the repair. I did place a Yimi drain adjacent to the repair, brought out through the more medial 5 mm laparoscopy port site. I brought out the midportion Prolene stent stitch through the other 5 mm laparoscopy port. Next, using 2-0 PDS suture, I closed the posterior fascial layer and the anterior fascial layer. I reapproximated the deep skin with interrupted Vicryl stitches, and I used a surgical stapler to close the subcostal incision. I then turned my attention back to the umbilical port site. I closed this with an interrupted Vicryl stitch, and approximated skin with surgical patricia. The Yimi drain was placed to close suction drainage, and the patient was awakened from anesthesia and transferred to the recovery unit. I plan to leave the drain in place over the next few days and follow her liver function test.
--- NOTE | 2022-02-18 20:03 | W.ANESPOSTOP ---
Postoperative Evaluation Date, Time and Location Date Performed: 02/18/22 Time Performed: 20:03 Patient Location: PACU Vital Signs Most Recent Imported Vital Signs: Most Recent Vital Signs Temp Pulse Resp BP Pulse Ox 36.7 C 75 14 106/70 97 02/18/22 19:59 02/18/22 19:59 02/18/22 19:59 02/18/22 19:59 02/18/22 19:59 Pain Score Most Recent Pain Score: Most Recent Pain Score Pain Level 6 02/18/22 13:08 Assessment Mental Status: Arousable with meaningful communication Airway and Respiratory Function: Patent airway with normal (patient baseline) respiratory exam Cardiovascular Function: Hemodynamically Stable Hydration Status: Adequately Hydrated Nausea & Vomiting: No Nausea or Vomiting Pain: Pain is tolerable per patient (Pt. still sleepy, will wait until more awake to give additional analgesia.) Peripheral Nerve Block: Patient did not receive a nerve block
[2022-02-19] VITALS (7 sets, daily range): BP systolic 94–103; BP diastolic 58–65; PULSE 60–84; RESP 16–20; TEMP 36.7–37.7; O2SAT 95–98
[2022-02-19] MEDS: Lactated Ringers 1,000 ML 75 ML IV ×2 (02:35→18:16)
[2022-02-19] MEDS: HYDROmorphone 2 MG/ML SYR 1 MG IVP ×2 (02:36→11:29)
[2022-02-19] MEDS: ACETAMINOPHEN 1,000 MG/100 ML BTL 400 MG IVPB (05:22)
[2022-02-19 06:02] LABS: ALT 450 U/L (14-59); AST 222 U/L (15-37); Albumin 3.4 g/dL (3.4-5.0); Alkaline Phosphatase 124 U/L (46-116); Bilirubin, Direct 0.3 mg/dL (0.0-0.2); Bilirubin, Total 1.6 mg/dL (0.2-1.0); Total Protein 6.3 g/dL (6.4-8.2)
[2022-02-19] MEDS: Enoxaparin 40 MG/0.4 ML SYR SC (09:10)
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
--- NOTE | 2022-02-19 14:47 | PHA.REVIEW2 ---
Pharmacy Admission Review - Admission Clinical Review (Last Reviewed 02/18/22 @ 12:17 by Andrade Mendenhall MD) Cholelithiasis (Acute) Elevated transaminase level (Acute) Right upper quadrant abdominal pain (Acute) dog dander Allergy (Severe, Verified 02/18/22 10:21) swollen throat lips, rash house dust mite Allergy (Severe, Verified 02/18/22 10:21) swollen throat and lips, rash Pertussis Vaccines Allergy (Intermediate, Verified 02/18/22 10:21) hives/SOB tetanus and diphtheria toxoids Allergy (Intermediate, Verified 02/18/22 10:21) hives/SOB Resuscitation Status Full Code Height 5 ft 3 in Weight 66.075 kg - Renal Dosing Renal Dosing: BUN 14 mg/dL (7-18) 02/18/22 09:46 Creatinine 0.8 mg/dL (0.55-1.02) 02/18/22 09:46 Medications needing adjustments: Reviewed (Crcl ~101.6 mL/min current meds okay) - Anticoagulation Anticoagulation: Hgb 13.3 g/dL (11.2-15.7) 02/18/22 09:46 Hct 40.6 % (36.0-46.0) 11 09:46 Plt Count 198 10^3/uL (130-400) 02/18/22 09:46 Creatinine 0.8 mg/dL (0.55-1.02) 11 09:46 DVT Prophylaxis: Reviewed Medications: Enoxaparin Therapeutic Anticoagulation: N/A - Opiate Usage Evaluate Pain Scale/Pains Meds: Reviewed Scheduled Bowel Reg ordered if on Opiates?: No - Relevant Labs Sodium 142 mmol/L (136-145) 02/18/22 09:46 Potassium 4.1 mmol/L (3.5-5.1) 02/18/22 09:46 Chloride 109 mmol/L (98-107) H 02/18/22 09:46 Electrolytes, C-Reactive P, ESR: Reviewed - DM Control DM Control: Glucose 95 mg/dL (74-106) 02/18/22 09:46 DM Control: Reviewed - Cardiac Review BP, HR, EF%: Reviewed - Qtc Review QTc: N/A - IV to PO Switch IV Medications: Reviewed (pt is currently NPO) - Home Meds Home Med List reviewed: Reviewed Relevent Home Meds Not ordered & why?: albuterol, bupropion, epinephrine, fluticasone, sertraline, and valacyclovir (NPO) - Current meds Current Medication Order Review: Reviewed - Comments Comments/Follow Ups: Watch VS, LFTs, labs and for med changes (IV to PO once pt. is no longer NPO, home meds, possible need of BM meds).
--- NOTE | 2022-02-19 16:17 | PGE_ITS ---
Date of Service Date of service: 02/19/22 Time of Service: 16:17 Assessment and Plan Assessment and plan (1) Common bile duct leak: Status: Acute Assessment and plan: Generally, her liver function tests are reassuring, but there is clearly some expected biliary leak from the common bile duct repair. I would like to see how this evolves over the next 24 hours. I will repeat the LFTs tomorrow. I will keep her n.p.o. for tonight. If she continues to have biliary drainage, then she may need to go down to [facility] for an ERCP and sphincterotomy to help promote antegrade flow of bile and decompress the biliary tree. I answered all her questions regarding the nature of this complication, prognosis, and expected recovery to the best my ability. Subjective Subjective Interval history since last seen: I met with Lawanda this morning and disclose the iatrogenic bile duct injury that occurred during her cholecystectomy last night. I shared with her that I disclosed this to her mother last night as well. This morning, she is complaining of a little bit of right shoulder pain and a lot of incisional discomfort. She denies any nausea or vomiting. She does not have much appetite. Exam GI Other: Incisions are clean, there is no erythema or signs of infection. There are some bile draining from the biliary stent site on the skin. I replaced these dressings. Surgical drain is bilious, but low volume. Objective Last Vital Signs Temp 99.9 F H 02/19/22 15:37 Pulse 83 02/19/22 15:37 Resp 18 02/19/22 15:37 BP 99/60 L 02/19/22 15:37 Pulse Ox 98 02/19/22 15:37 Laboratory Results - last 24 hr 02/19/22 02/19/22 05:30 05:30 Total Bilirubin Cancelled 1.6 H Conjugated Bilirubin 0.3 H AST 222 H ALT 450 H Alkaline Phosphatase 124 H Total Protein 6.3 L Albumin 3.4 PAWSS Have you Been Recently Intoxicated or Drunk Within the Last 30 days?: No Have you Ever Experienced Previous Episodes of Alcohol Withdrawal?: No Have you ever Experienced Withdrawal Seizures?: No Have you ever Experienced Delirium Tremens(DT)s?: No Have you ever undergone Alcohol Rehabilitation Treatment (i.e, inpt ot outpatient treatment programs)?: No Have you ever Experienced Blackouts?: No Have you ever Combined Alcohol with other Downers within the last 90 days?: No Have you ever Combined Alcohol with any other Substance of Abuse during the last 90 days?: No Result: 0
[2022-02-19] MEDS: Ketorolac 30 MG/ML VIAL IVP ×2 (16:39→22:57)
[2022-02-19] MEDS: MORPHine 2 MG/ML SYR IVP ×2 (16:40→20:45)
[2022-02-19] MEDS: Normal Saline Flush 10 ML SYR IVP (22:57)
[2022-02-20 02:37] VITALS: BP 104/69; PULSE 94; RESP 18; TEMP 36.5; O2SAT 98
[2022-02-20] MEDS: ACETAMINOPHEN 1,000 MG/100 ML BTL 400 MG IVPB ×2 (03:19→21:51)
[2022-02-20] MEDS: Normal Saline Flush 10 ML SYR IVP ×8 (03:21→22:51)
[2022-02-20] MEDS: MORPHine 2 MG/ML SYR IVP ×4 (03:23→22:52)
[2022-02-20] MEDS: Ketorolac 30 MG/ML VIAL IVP ×4 (04:47→21:46)
[2022-02-20] MEDS: Lactated Ringers 1,000 ML 75 ML IV ×2 (06:31→17:01)
[2022-02-20 06:34] LABS: Anion Gap 7.9 mmol/L (3-11); BUN 11 mg/dL (7-18); Bilirubin, Total 1.5 mg/dL (0.2-1.0); CO2 26.1 mmol/L (21.0-32.0); CREATININE 0.7 mg/dL (0.55-1.02); Calcium 8.2 mg/dL (8.5-10.1); Chloride 107 mmol/L (98-107); Estimated GFR 126.11 (mL/min/1.73m2); Glucose 88 mg/dL (74-106); Potassium 3.6 mmol/L (3.5-5.1); Sodium 141 mmol/L (136-145)
--- NOTE | 2022-02-20 07:12 | W.PM.PROGNOT ---
Date of Service Date of service: 02/20/22 Time of Service: 07:14 Assessment and Plan Assessment and plan (1) Hx of cholecystectomy: Status: Chronic Assessment and plan: Lawanda is postop day #1 status post open cholecystectomy with repair of common bile duct injury. She is having quite a bit of drainage along where the sutures are coming through the skin. She is hungry and otherwise feeling well. Plan is to talk to [facility] about the repair that we did and see if they would do an ERCP versus surgery to remove her stent in place another stent to hopefully stop the bile leaking. For now we will keep her n.p.o. until we know if she will be going down to [facility]. (2) Common bile duct leak: Status: Acute Subjective Subjective Interval history since last seen: Lawanda is doing well this morning. She is hungry. She has appropriate abdominal pain from her incision site. A clementina is in place and there is minimal drainage. There is a lot of bile leaking around the sutures. She has not had any fevers. Exam Const General: comfortable Resp Effort & Inspection: normal respiratory effort Auscultation: clear to auscultation bilaterally Cardio Rate: regular rate Rhythm: regular rhythm GI Palpation: soft, no hepatosplenomegaly and tender (appropriately tender aover the incisions and at drain site) Auscultation: normal bowel sounds Other: Dressings around the sutures are saturated with bile Objective Last Vital Signs Temp 97.7 F 02/20/22 02:37 Pulse 94 H 02/20/22 02:37 Resp 18 02/20/22 02:37 BP 104/69 02/20/22 02:37 Pulse Ox 98 02/20/22 02:37 Laboratory Results - last 24 hr 02/20/22 05:51 Sodium 141 Potassium 3.6 Chloride 107 Carbon Dioxide 26.1 Anion Gap 7.9 BUN 11 Creatinine 0.7 Est GFR (CKD-EPI 2020) 126.11 Glucose 88 Calcium 8.2 L Total Bilirubin 1.5 H PAWSS Have you Been Recently Intoxicated or Drunk Within the Last 30 days?: No Have you Ever Experienced Previous Episodes of Alcohol Withdrawal?: No Have you ever Experienced Withdrawal Seizures?: No Have you ever Experienced Delirium Tremens(DT)s?: No Have you ever undergone Alcohol Rehabilitation Treatment (i.e, inpt ot outpatient treatment programs)?: No Have you ever Experienced Blackouts?: No Have you ever Combined Alcohol with other Downers within the last 90 days?: No Have you ever Combined Alcohol with any other Substance of Abuse during the last 90 days?: No Result: 0
[2022-02-20] MEDS: Enoxaparin 40 MG/0.4 ML SYR SC (08:24)
[2022-02-20 10:55] VITALS: BP 129/77; PULSE 82; RESP 18; TEMP 36.9; O2SAT 97
[2022-02-20 16:03] VITALS: BP 95/64; PULSE 71; RESP 16; TEMP 37; O2SAT 98
--- NOTE | 2022-02-20 17:07 | PDOC.CMPRO ---
- If Service Date Differs Date of service: 02/20/22 Time of Service: 17:07 Care Management Progress Note S/O: Lawanda was lying in bed, visiting with family when CM met with her. She is pleasant and easy to engage in conversation. She has no concerns or needs at this time. A: 21 year old female admitted to [facility] on 02/18/22 for RUQ abdominal pain P:Anticipate Lawanda will discharge home with no new services. She will follow up with her PCP, surgeon and plan of care and transport with family. CM will continue to support Lawanda and her discharge needs.
[2022-02-20 19:59] VITALS: BP 99/64; PULSE 87; RESP 16; TEMP 36.5; O2SAT 98
[2022-02-20 23:30] VITALS: BP 109/68; PULSE 83; RESP 19; TEMP 36.6; O2SAT 96
[2022-02-21 03:31] VITALS: BP 110/70; PULSE 86; RESP 18; TEMP 37; O2SAT 97
[2022-02-21] MEDS: Ketorolac 30 MG/ML VIAL IVP ×4 (04:36→22:21)
[2022-02-21 07:30] LABS: Abs Immature Grans 0.02 10^3/uL (0.0-0.06); Absolute Basophil Count 0.01 10^3/uL (0.0-0.2); Absolute Eosinophil Count 0.27 10^3/uL (0.0-0.7); Absolute Lymphocyte Count 1.17 10^3/uL (1.2-3.4); Absolute Monocyte Count 0.44 10^3/uL (0.1-0.8); Absolute Neutrophil Count 3.87 10^3/uL (1.2-6.7); Basophils % 0.2; Eosinophils % 4.7; HCT 33.7 % (36.0-46.0); HGB 11.2 g/dL (11.2-15.7); Immature Grans % 0.3; Lymphocytes % 20.2; MCHC 33.2 % (32.0-36.0); MCV 90 fL (80-95); MPV 9.9 fL (8.0-11.0); Monocytes % 7.6; Platelet Count 157 10^3/uL (130-400); RBC 3.73 10^6/uL (3.93-5.22); RDW 11.6 % (11.7-14.6); RDW-SD 38.4 fL; WBC 5.78 10^3/uL (4.4-10.8)
[2022-02-21 07:34] VITALS: BP 108/73; PULSE 88; RESP 16; TEMP 36.9; O2SAT 96
[2022-02-21] MEDS: Lactated Ringers 1,000 ML 1000 ML IV (07:43)
[2022-02-21 07:50] LABS: ALT 144 U/L (14-59); AST 30 U/L (15-37); Albumin 2.7 g/dL (3.4-5.0); Alkaline Phosphatase 90 U/L (46-116); Anion Gap 7.7 mmol/L (3-11); BUN 9 mg/dL (7-18); CO2 26.3 mmol/L (21.0-32.0); CREATININE 0.6 mg/dL (0.55-1.02); Calcium 7.9 mg/dL (8.5-10.1); Chloride 108 mmol/L (98-107); Estimated GFR 130.88 (mL/min/1.73m2); Glucose 92 mg/dL (74-106); Magnesium 1.6 mg/dL (1.8-2.4); Potassium 3.6 mmol/L (3.5-5.1); Sodium 142 mmol/L (136-145); Total Protein 5.4 g/dL (6.4-8.2)
[2022-02-21] MEDS: Normal Saline Flush 10 ML SYR IVP ×2 (09:50→17:03)
--- NOTE | 2022-02-21 13:53 | CMPROGNOTE_ITS ---
- If Service Date Differs Date of service: 02/21/22 Time of Service: 13:53 Care Management Progress Note S/O: CM was unable to meet with Lawanda today, since she transported to [facility] today via EMS. A down and back procedure is planned for an ERCP vs. surgical intervention to replace her stent. Lawanda continues to be [facility] by [facility]. CM will continue to follow. A: 21 year old female admitted to [facility] on 02/18/22 for RUQ abdominal pain. P:Anticipate Lawanda will discharge home with no new services. She will follow up with her PCP, surgeon and plan of care and transport with family. CM will continue to support Lawanda and her discharge needs.
[2022-02-21 16:40] VITALS: BP 125/85; PULSE 65; RESP 16; TEMP 36.9; O2SAT 98
[2022-02-21 19:20] VITALS: BP 117/79; PULSE 74; RESP 18; TEMP 37.1; O2SAT 96
[2022-02-21 23:35] VITALS: BP 118/78; PULSE 75; RESP 16; TEMP 36.9; O2SAT 96
[2022-02-22] MEDS: Ketorolac 30 MG/ML VIAL IVP (03:31)
[2022-02-22] MEDS: Lactated Ringers 1,000 ML 75 ML IV (03:31)
[2022-02-22 03:34] VITALS: BP 93/55; PULSE 76; RESP 16; TEMP 36.7; O2SAT 97
[2022-02-22 07:26] LABS: Abs Immature Grans 0.04 10^3/uL (0.0-0.06); Absolute Basophil Count 0.02 10^3/uL (0.0-0.2); Absolute Eosinophil Count 0.13 10^3/uL (0.0-0.7); Absolute Lymphocyte Count 0.97 10^3/uL (1.2-3.4); Absolute Monocyte Count 0.52 10^3/uL (0.1-0.8); Absolute Neutrophil Count 7.54 10^3/uL (1.2-6.7); Basophils % 0.2; Eosinophils % 1.4; HCT 34.8 % (36.0-46.0); HGB 11.6 g/dL (11.2-15.7); Immature Grans % 0.4; Lymphocytes % 10.5; MCH 29.2 pg (27.0-33.0); MCHC 33.3 % (32.0-36.0); MCV 88 fL (80-95); MPV 9.7 fL (8.0-11.0); Monocytes % 5.6; Neutrophils % 81.9; Platelet Count 211 10^3/uL (130-400); RBC 3.97 10^6/uL (3.93-5.22); RDW 11.3 % (11.7-14.6); RDW-SD 36.1 fL; WBC 9.22 10^3/uL (4.4-10.8)
[2022-02-22 07:27] VITALS: BP 105/65; PULSE 98; RESP 16; TEMP 36.7; O2SAT 98
[2022-02-22 07:41] LABS: Magnesium 1.9 mg/dL (1.8-2.4)
[2022-02-22 07:44] LABS: ALT 139 U/L (14-59); AST 39 U/L (15-37); Albumin 2.8 g/dL (3.4-5.0); Alkaline Phosphatase 101 U/L (46-116); BUN 8 mg/dL (7-18); Bilirubin, Total 0.7 mg/dL (0.2-1.0); CREATININE 0.6 mg/dL (0.55-1.02); Calcium 8.2 mg/dL (8.5-10.1); Chloride 108 mmol/L (98-107); Estimated GFR 130.88 (mL/min/1.73m2); Glucose 115 mg/dL (74-106); Potassium 3.9 mmol/L (3.5-5.1); Sodium 142 mmol/L (136-145); Total Protein 5.8 g/dL (6.4-8.2)
[2022-02-22 10:55] VITALS: BP 117/73; PULSE 94; RESP 16; TEMP 36.7; O2SAT 97
--- NOTE | 2022-02-22 11:10 | CMPROGNOTE_ITS ---
- If Service Date Differs Date of service: 02/22/22 Time of Service: 11:10 Care Management Progress Note S/O: Lawanda went down and back to [facility] yesterday. She has a JOHN drain and will likely need new [facility] RN services following discharge. CM notified Italo at [facility] that patient may discharge over the weekend and will need support with her JOHN drain. CM is waiting for Surgical update and will continue to follow. A: 21 year old female admitted to [facility] on 02/18/22 for RUQ abdominal pain. P:Anticipate Lawanda will discharge home with no new services. She will follow up with her PCP, surgeon and plan of care and transport with family. CM will continue to support Lawanda and her discharge needs.
--- NOTE | 2022-02-22 11:10 | PDOC.CMPRO ---
- If Service Date Differs Date of service: 02/22/22 Time of Service: 11:10 Care Management Progress Note S/O: Lawanda went down and back to [facility] yesterday. She has a JOHN drain and will likely need new [facility] RN services following discharge. CM notified Italo at [facility] that patient may discharge over the weekend and will need support with her JOHN drain. CM is waiting for Surgical update and will continue to follow. A: 21 year old female admitted to [facility] on 02/18/22 for RUQ abdominal pain. P:Anticipate Lawanda will discharge home with no new services. She will follow up with her PCP, surgeon and plan of care and transport with family. CM will continue to support Lawanda and her discharge needs.
--- NOTE | 2022-02-22 14:13 | W.PM.PROGNOT ---
Date of Service Date of service: 02/22/22 Time of Service: 14:13 Assessment and Plan Assessment and plan (1) Common bile duct leak: Status: Acute Assessment and plan: I think a bile duct leak is now resolved with the replacement of the new stent. I like to trend the right upper quadrant Yimi drain over the next 24 hours. If that state stays serous and low volume, then we can pull it tomorrow prior to discharge. In the meantime, I will Hep-Lock all the intravenous fluids, and advance to regular diet. Subjective Subjective Interval history since last seen: Blanca says she is feeling great after her trip to [facility] yesterday. During that procedure, they were able to remove her common bile duct stent, perform sphincterotomy, and replaced proper stent. Right upper quadrant drain is now serous. She is hungry, wants to eat some regular food. Exam GI Inspection: other (She is got some excoriation around the old stent site. ) Palpation: soft, no hernias and nontender Percussion: normal to percussion Auscultation: normal bowel sounds Objective Last Vital Signs Temp 98.1 F 02/22/22 10:55 Pulse 94 H 02/22/22 10:55 Resp 16 02/22/22 10:55 BP 117/73 02/22/22 10:55 Pulse Ox 97 02/22/22 10:55 Laboratory Results - last 24 hr 02/22/22 02/22/22 02/22/22 07:16 07:16 07:16 WBC 9.22 RBC 3.97 Hgb 11.6 Hct 34.8 L MCV 88 MCH 29.2 MCHC 33.3 RDW 11.3 L Plt Count 211 MPV 9.7 Immature Gran % 0.4 Neutrophils % 81.9 Lymphocytes % 10.5 Monocytes % 5.6 Eosinophils % 1.4 Basophils % 0.2 Nucleated RBC % 0.0 Absolute Neutrophils 7.54 H Absolute Lymphocytes 0.97 L Absolute Monocytes 0.52 Absolute Eosinophils 0.13 Absolute Basophils 0.02 Sodium 142 Potassium 3.9 Chloride 108 H Carbon Dioxide 26.0 Anion Gap 8.0 BUN 8 Creatinine 0.6 Est GFR (CKD-EPI 2020) 130.88 Glucose 115 H Calcium 8.2 L Magnesium 1.9 Total Bilirubin 0.7 AST 39 H ALT 139 H Alkaline Phosphatase 101 Total Protein 5.8 L Albumin 2.8 L PAWSS Have you Been Recently Intoxicated or Drunk Within the Last 30 days?: No Have you Ever Experienced Previous Episodes of Alcohol Withdrawal?: No Have you ever Experienced Withdrawal Seizures?: No Have you ever Experienced Delirium Tremens(DT)s?: No Have you ever undergone Alcohol Rehabilitation Treatment (i.e, inpt ot outpatient treatment programs)?: No Have you ever Experienced Blackouts?: No Have you ever Combined Alcohol with other Downers within the last 90 days?: No Have you ever Combined Alcohol with any other Substance of Abuse during the last 90 days?: No Result: 0
[2022-02-22] MEDS: Acetaminophen 325 MG TAB 650 MG PO ×2 (16:16→22:29)
[2022-02-22 16:21] VITALS: BP 122/68; PULSE 98; RESP 16; TEMP 37.1; O2SAT 97
[2022-02-22] MEDS: Senna TAB 1 TAB PO (17:32)
[2022-02-22] MEDS: Ibuprofen 600 MG TAB PO (17:34)
[2022-02-22] MEDS: Normal Saline Flush 10 ML SYR (19:28)
[2022-02-22 23:30] VITALS: BP 116/77; PULSE 88; TEMP 36.9; O2SAT 96
[2022-02-22] MEDS: diphenhydrAMINE 25 MG CAP PO (23:33)
[2022-02-22] MEDS: Lidocaine 5% Patch 1 PATCH TP (23:34)
[2022-02-23 02:46] VITALS: BP 108/68; PULSE 85; RESP 18; TEMP 36.6; O2SAT 96
[2022-02-23 08:44] VITALS: BP 106/70; PULSE 91; RESP 12; TEMP 37.1; O2SAT 91
[2022-02-23] MEDS: Patch Removal 1 EACH TP (10:07)
[2022-02-23 10:15] LABS: HCT 33.4 % (36.0-46.0); HGB 11.3 g/dL (11.2-15.7); MCH 30.4 pg (27.0-33.0); MCHC 33.8 % (32.0-36.0); MCV 90 fL (80-95); MPV 9.9 fL (8.0-11.0); Platelet Count 192 10^3/uL (130-400); RBC 3.72 10^6/uL (3.93-5.22); RDW 11.7 % (11.7-14.6); RDW-SD 37.6 fL; WBC 7.33 10^3/uL (4.4-10.8)
[2022-02-23 10:35] LABS: Anion Gap 8.3 mmol/L (3-11); BUN 12 mg/dL (7-18); CO2 25.7 mmol/L (21.0-32.0); CREATININE 0.9 mg/dL (0.55-1.02); Calcium 8.1 mg/dL (8.5-10.1); Chloride 108 mmol/L (98-107); Estimated GFR 93.28 (mL/min/1.73m2); Glucose 102 mg/dL (74-106); Potassium 3.5 mmol/L (3.5-5.1); Sodium 142 mmol/L (136-145)
[2022-02-23 10:40] LABS: ALT 109 U/L (14-59); AST 25 U/L (15-37); Albumin 2.9 g/dL (3.4-5.0); Alkaline Phosphatase 96 U/L (46-116); Bilirubin, Direct 0.2 mg/dL (0.0-0.2); Bilirubin, Total 0.7 mg/dL (0.2-1.0)
--- NOTE | 2022-02-23 12:14 | W.PM.PROGNOT ---
Date of Service Date of service: 02/23/22 Time of Service: 11:55 Assessment and Plan Assessment and plan (1) Common bile duct leak: Status: Acute Assessment and plan: a/p: 21 yo woman POD 5 from lap omaira/ open CBD exploration/repair, PPD 2 from ERCP and CBD stenting across the injury/repair. HD stable and not toxic. I am concerned about her new back pain, new nausea and new drain output and the character of the drain output. Labwork is grossly unremarkable and she is stable. Her abdomen is benign to examination. My clinical concern is that she may still have a small bile leak since her discomfort is constant and really subjective. The drain had been reportedly dry, but now has new output. It does not have juan miguel bile in it, but is definitely bile-tinged and I have recommended to her that the drain stays in to ensure control of any potential leak, no matter how small. Without IR capability and considering the patient's operative story, there is no downside to leaving the drain at this time. Her biliary stent could have migrated or a scant amount of bile could be leaking around the stent, or it could simply be residual bile from the prior leaking. I'm not sure, but I counseled her that the drain cannot be put back in at our facility and with the changes she has had this morning and the new fluid in the drain it needs to stay in place. Overall plan: Keep NPO until her nausea resolves. She can have sips of clears and meds. Re-establish IVF Non-narcotic analgesia. Keep drain in today. Re-assess tomorrow and see what happens with drain output and her symptoms overnight. DVT ppx Subjective Subjective Interval history since last seen: Early this AM nurse called me for new, increasing back pain and new nausea. No vomiting. Patient declined Zofran. She was made NPO, labwork ordered. Vitals stable. At bedside patient describes the pain as constant and in her right back. Moving makes it worse. She still feels nauseated. Her other complaint is the skin next to her drain is red and blistered because of a previous bile-soaked dressing. It itches but she says it is actually better this morning. She has been passing gas but has been unable to have a substantial bowel movement. She is tearful because she wants to go home and see her daughter. Exam Narrative Exam Narrative: Gen: Nontoxic but somewhat uncomfortable in appearance Neuro: AxOx3 Psych: tearful mood and affect but reasonable insight and understanding VITALS: within acceptable limits on room air and no fever Abdomen: Soft, nondistended, no tenderness on exam. Incision looks perfect. Dorys are intact. No erythema or discharge. Lateral to her drain site is a 5cm patchy area of blistering and erythema that appears stable. It is not cellulitis and is consistent with a mild skin burn from bile exposure. The drain is intact and has about 20cc of serous fluid in it, but with a subtle yet obvious bile-tinge to the fluid. This could be residual bile-staining of serous output based off of the story. Previous days measured 0 output, but last 24 hours has had 15cc in addition to what is in the drain now. Objective Last Vital Signs Temp 98.8 F 02/23/22 08:44 Pulse 91 H 02/23/22 08:44 Resp 12 02/23/22 08:44 BP 106/70 02/23/22 08:44 Pulse Ox 91 L 02/23/22 08:44 Laboratory Results - last 24 hr 02/23/22 02/23/22 02/23/22 10:10 10:10 10:10 WBC 7.33 RBC 3.72 L Hgb 11.3 Hct 33.4 L MCV 90 MCH 30.4 MCHC 33.8 RDW 11.7 Plt Count 192 MPV 9.9 Sodium 142 Potassium 3.5 Chloride 108 H Carbon Dioxide 25.7 Anion Gap 8.3 BUN 12 Creatinine 0.9 Est GFR (CKD-EPI 2020) 93.28 Glucose 102 Calcium 8.1 L Total Bilirubin 0.7 Conjugated Bilirubin 0.2 AST 25 ALT 109 H Alkaline Phosphatase 96 Total Protein 6.0 L Albumin 2.9 L PAWSS Have you Been Recently Intoxicated or Drunk Within the Last 30 days?: No Have you Ever Experienced Previous Episodes of Alcohol Withdrawal?: No Have you ever Experienced Withdrawal Seizures?: No Have you ever Experienced Delirium Tremens(DT)s?: No Have you ever undergone Alcohol Rehabilitation Treatment (i.e, inpt ot outpatient treatment programs)?: No Have you ever Experienced Blackouts?: No Have you ever Combined Alcohol with other Downers within the last 90 days?: No Have you ever Combined Alcohol with any other Substance of Abuse during the last 90 days?: No Result: 0
[2022-02-23 12:49] VITALS: BP 102/66; PULSE 75; RESP 18; TEMP 37.1; O2SAT 98
[2022-02-23] MEDS: Lactated Ringers 1,000 ML 125 ML IV ×2 (14:14→22:33)
[2022-02-23] MEDS: ACETAMINOPHEN 1,000 MG/100 ML BTL 400 MG IVPB ×2 (14:15→20:26)
[2022-02-23] MEDS: Heparin 5,000 UNITS/ML VIAL 5000 UNITS SC ×2 (14:15→22:17)
[2022-02-23 15:19] VITALS: BP 100/63; PULSE 79; RESP 16; TEMP 37; O2SAT 97
[2022-02-23] MEDS: Ketorolac 30 MG/ML VIAL IVP ×2 (16:06→22:16)
[2022-02-23 19:54] VITALS: BP 115/79; PULSE 77; RESP 16; TEMP 36.8; O2SAT 98
[2022-02-23] MEDS: Lidocaine 5% Patch 1 PATCH TP (22:16)
[2022-02-23 23:45] VITALS: BP 98/60; PULSE 72; RESP 18; TEMP 35.9; O2SAT 98
[2022-02-24] MEDS: ACETAMINOPHEN 1,000 MG/100 ML BTL 400 MG IVPB ×2 (02:37→08:43)
[2022-02-24 03:16] VITALS: BP 101/62; PULSE 70; RESP 18; TEMP 36.3; O2SAT 97
[2022-02-24] MEDS: Ketorolac 30 MG/ML VIAL IVP ×2 (04:26→10:27)
[2022-02-24] MEDS: Lactated Ringers 1,000 ML 125 ML IV (06:19)
[2022-02-24] MEDS: Heparin 5,000 UNITS/ML VIAL 5000 UNITS SC (06:21)
[2022-02-24 06:47] VITALS: BP 108/79; PULSE 83; RESP 16; TEMP 36.1; O2SAT 98
[2022-02-24] MEDS: Normal Saline Flush 10 ML SYR IVP (10:27)
[2022-02-24] MEDS: Patch Removal 1 EACH TP (10:28)
--- NOTE | 2022-02-24 11:24 | PGE_ITS ---
Date of Service Date of service: 02/24/22 Time of Service: 11:15 Assessment and Plan Assessment and plan (1) Common bile duct leak: Status: Acute Assessment and plan: a/p: ? 21 yo woman POD 6 from lap omaira/ open CBD exploration/repair, PPD3 from ERCP and CBD stenting across the injury/repair. ? She is drastically improved clinically in response to IVF hydration and keeping her NPO for the last 24 hours. Pain and nausea have completely resolved and her overall appearance this morning is completely different - upbeat, comfortable and interactive. Excited about food and potentially going home. She is HD stable and her abdominal exam is benign. The drain continues to have output and though mostly clear, there remains a hint of bile-tinge to the fluid quality. She is on only the 3rd day since stenting across the injured portion that had been leaking and I recommended we leave the drain in place at least another couple of days considering the output from it. She verbalizes her understanding, agreement and has been taught how to empty the drain and she came up with her own idea of how to protect it from her small child from pulling on it at home. Overall plan: Advance diet as tolerated Stop IVF Drain teaching - DC with drain - Drain removal later this week in the office. non-narcotic analgesia Subjective Subjective Interval history since last seen: Significant and drastic improvement. Her back pain is completely gone. Her nausea is gone. She has had a couple bowel movements. No fevers. No abdominal pain. The cream placed on her skin burn/rash has helped it significantly. She is hungry and hoping she can try food again. She has been voiding adequately. She is interested in being discharged with her drain if she feels well enough to go home after eating. Exam Narrative Exam Narrative: Gen:? Nontoxic, comfortable and interactive Neuro: AxOx3 Psych:? appropriate mood and affect, good insight and understanding into condition Abdomen:? Soft, nondistended, nontender. Subcostal incision looks perfect. [place] intact. No erythema or discharge. She does want a dressing over it because the patricia are irritating the underside of her breast. The rash area is impressively improved secondary to the ointment/cream. Not itchy today. Drain: 60 cc out since yesterday. 5-10cc in bulb at bedside. Serous with sl ightest hint/tinge of bile still. Objective Last Vital Signs Temp 97.0 F L 02/24/22 06:47 Pulse 83 02/24/22 06:47 Resp 16 02/24/22 06:47 BP 108/79 02/24/22 06:47 Pulse Ox 98 02/24/22 06:47 PAWSS Have you Been Recently Intoxicated or Drunk Within the Last 30 days?: No Have you Ever Experienced Previous Episodes of Alcohol Withdrawal?: No Have you ever Experienced Withdrawal Seizures?: No Have you ever Experienced Delirium Tremens(DT)s?: No Have you ever undergone Alcohol Rehabilitation Treatment (i.e, inpt ot outpatient treatment programs)?: No Have you ever Experienced Blackouts?: No Have you ever Combined Alcohol with other Downers within the last 90 days?: No Have you ever Combined Alcohol with any other Substance of Abuse during the last 90 days?: No Result: 0
[2022-02-24 11:40] VITALS: BP 123/84; PULSE 67; RESP 16; TEMP 36.8; O2SAT 97
[2022-02-24 15:00] VITALS: BP 116/80; PULSE 82; RESP 16; TEMP 36.8; O2SAT 97
--- NOTE | 2022-02-24 16:59 | PDOC.CMDIS ---
- If Service Date Differs Date of service: 02/24/22 Time of Service: 16:59 LACE Index Scoring Tool - Questions: Length of Stay (in days): 4 - 6 Acuity (Admit via E.D.?): Yes E.D. Visits: 13 - Answers: Total Score: 11 Risk of Readmission: High Risk Care Management Discharge Reason for Hospitalization: RUQ abdominal pain Discharge Plan: Lawanda is discharged home with no services. She will follow up with her PCP, [facility] and plan of care as instructed. She is driven home by family via private vehicle. Patient/Family Education Needs: Review of discharge instructions including medications, limitations and drain care; Ask Me Three.
== END 2022-02-24 15:43 | disposition home or self-care (01) | DRG 409 ==
LOC: ER 10:08 → MS 10:50
PROVIDERS: Student in an Organized Health Care Education/Training Program; Surgery; Admitting Provider Surgery; Emergency Provider Physician Assistant; PCP Nurse Practitioner; Visit Provider Surgery
PROC: 0FT44ZZ Resection of Gallbladder, Percutaneous Endoscopic Approach (ICD-10-PCS; CPT 47562; principal; 2022-02-18 15:00)
DX: K80.00 Calculus of gallbladder with acute cholecystitis without obstruction (principal); K91.71 Accidental puncture and laceration of a digestive system organ or structure during a digestive system procedure; F32.A Depression, unspecified; N93.8 Other specified abnormal uterine and vaginal bleeding; K64.8 Other hemorrhoids; F41.9 Anxiety disorder, unspecified; F90.9 Attention-deficit hyperactivity disorder, unspecified type; J45.990 Exercise induced bronchospasm; E73.9 Lactose intolerance, unspecified; F17.290 Nicotine dependence, other tobacco product, uncomplicated; Y65.8 Other specified misadventures during surgical and medical care; Y92.234 Operating room of hospital as the place of occurrence of the external cause; Z53.31 Laparoscopic surgical procedure converted to open procedure
CPT/HCPCS: 47600; 47800; 47801; 36415; 80048; 80053; 80076; 83690; 85027; 87635; 96374; 99285; J1650; 82247; 83735; 85025; 85049; 88304; G0378; J0131; J0690; J1100; J1170; J1644; J1885; J2250; J2270; J2543; J2704; J3490

== ENCOUNTER 2022-03-08 01:23 | Outpatient (CLI) | payer MEDICAID, SELFPAY ==
[2022-03-08 10:34] LABS: ALT 18 U/L (14-59); AST 11 U/L (15-37); Albumin 3.8 g/dL (3.4-5.0); Alkaline Phosphatase 88 U/L (46-116); Bilirubin, Direct 0.2 mg/dL (0.0-0.2); Bilirubin, Total 1.2 mg/dL (0.2-1.0); Total Protein 6.9 g/dL (6.4-8.2)
== END 2022-03-08 01:24 | disposition home or self-care (01) ==
LOC: LBO 01:23
PROVIDERS: PCP Nurse Practitioner; Visit Provider Surgery
DX: K83.8 Other specified diseases of biliary tract (principal)
CPT/HCPCS: 36415; 80076

== ENCOUNTER 2022-04-12 22:00 | Outpatient (CLI) | payer MEDICAID, SELFPAY ==
--- NOTE | 2022-04-12 15:15 | DI.RAD_ITS ---
Exam(s) XR ANKLE LT COMPLETE EXAM: XR ANKLE LT COMPLETE CLINICAL HISTORY: PAIN IN LT ANKLE AND JOINTS OF LT FOOT--M25.572 TECHNIQUE: 2D digital imaging was performed. Three views. COMPARISON: CR XR ANKLE LT COMPLETE from 08/28/2018 FINDINGS: BONES: No acute fracture is present. No bony destructive lesion is seen. JOINTS:The ankle mortise is normally aligned. SOFT TISSUE: Normal. IMPRESSION: Unremarkable radiographs of the left ankle. DATA REPOSITORY: RADIATION DOSE DELIVERED:
== END 2022-04-12 22:20 ==
LOC: DI 22:01
PROVIDERS: PCP Nurse Practitioner; Visit Provider Physician Assistant Medical
DX: M25.572 Pain in left ankle and joints of left foot (principal)
CPT/HCPCS: 73610

== ENCOUNTER 2022-05-01 21:20 | Emergency (ER) | payer MEDICAID, SELFPAY ==
[2022-05-01 21:26] VITALS: BP 124/77; PULSE 83; RESP 18; TEMP 36.4; O2SAT 99
--- NOTE | 2022-05-01 22:00 | DI.RAD_ITS ---
Exam(s) XR CHEST 2V PA LATERAL EXAM: XR CHEST 2V PA LATERAL CLINICAL HISTORY: hematemesis. TECHNIQUE: 2D digital imaging was performed. COMPARISON: CR XR CHEST 2V PA LATERAL from 09/26/2018 FINDINGS: 2 views: Heart size is normal. The mediastinum is not widened. Lungs are clear. No infiltrates nor pleural effusions. IMPRESSION: No acute pulmonary findings. DATA REPOSITORY: RADIATION DOSE DELIVERED:
[2022-05-01] MEDS: fentaNYL 100 MCG/2 ML VIAL 50 MCG IVP (22:15)
[2022-05-01] MEDS: Prochlorperazine 10 MG/2 ML VIAL IVP (22:16)
[2022-05-01 22:18] LABS: Abs Immature Grans 0.01 10^3/uL (0.0-0.06); Absolute Basophil Count 0.05 10^3/uL (0.0-0.2); Absolute Eosinophil Count 0.17 10^3/uL (0.0-0.7); Absolute Lymphocyte Count 2.56 10^3/uL (1.2-3.4); Absolute Monocyte Count 0.42 10^3/uL (0.1-0.8); Absolute Neutrophil Count 2.57 10^3/uL (1.2-6.7); Basophils % 0.9; Eosinophils % 2.9; HCT 40.3 % (36.0-46.0); HGB 13.5 g/dL (11.2-15.7); Immature Grans % 0.2; Lymphocytes % 44.3; MCH 30.1 pg (27.0-33.0); MCHC 33.5 % (32.0-36.0); MCV 90 fL (80-95); MPV 9.5 fL (8.0-11.0); Monocytes % 7.3; Neutrophils % 44.4; Platelet Count 222 10^3/uL (130-400); RBC 4.49 10^6/uL (3.93-5.22); RDW 11.9 % (11.7-14.6); RDW-SD 39.2 fL; WBC 5.78 10^3/uL (4.4-10.8)
[2022-05-01] MEDS: Lactated Ringers 1,000 ML 1000 ML IV (22:19)
[2022-05-01] MEDS: Normal Saline 50 ML 100 ML (22:19)
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
[2022-05-01 22:38] LABS: ALT 16 U/L (14-59); AST 15 U/L (15-37); Albumin 3.8 g/dL (3.4-5.0); Alkaline Phosphatase 84 U/L (46-116); Anion Gap 5.2 mmol/L (3-11); BUN 13 mg/dL (7-18); CO2 27.8 mmol/L (21.0-32.0); CREATININE 0.9 mg/dL (0.55-1.02); Calcium 9.1 mg/dL (8.5-10.1); Chloride 103 mmol/L (98-107); Estimated GFR 93.28 (mL/min/1.73m2); Glucose 106 mg/dL (74-106); Lipase 77 U/L (73-393); Potassium 3.8 mmol/L (3.5-5.1); Sodium 136 mmol/L (136-145); Total Protein 6.8 g/dL (6.4-8.2)
--- NOTE | 2022-05-01 22:49 | DI.VRAD_ITS ---
PROCEDURE INFORMATION: Exam: XR Chest Exam date and time: 05/01/2022 10:41 PM Age: 21 years old Clinical indication: Other: Hematemesis TECHNIQUE: Imaging protocol: Radiologic exam of the chest. Views: 2 views. COMPARISON: CT CHEST PE CTA 02/10/2020 2:56 PM FINDINGS: Lungs: Unremarkable. No consolidation. Pleural spaces: Unremarkable. No pleural effusion. No pneumothorax. Heart/Mediastinum: Mild enlargement of the main pulmonary artery segment. No cardiomegaly. Bones/joints: Unremarkable. IMPRESSION: No acute findings. Mild enlargement of the main pulmonary artery segment which may represent underlying pulmonic stenosis versus pulmonary arterial hypertension Dictated and Authenticated by: Yoandy Gordillo MD. Ordering:RENATA Albarado MD
[2022-05-01] MEDS: Omeprazole 20 MG CAPCR PO (22:55)
[2022-05-01] MEDS: Prochlorperazine 10 MG TAB PO (23:14)
[2022-05-01 23:21] VITALS: BP 108/65; PULSE 68; RESP 18; O2SAT 99
== END 2022-05-01 23:20 | disposition home or self-care (01) ==
PROVIDERS: Emergency Provider Physician Assistant; PCP Nurse Practitioner
DX: K92.0 Hematemesis (principal); J45.909 Unspecified asthma, uncomplicated; Z79.899 Other long term (current) drug therapy; Z90.49 Acquired absence of other specified parts of digestive tract
CPT/HCPCS: 80053; 83690; 86850; 86900; 86901; 96361; 96374; 96375; 99284; 71046; 85025; 99283; J0780; J3010

== ENCOUNTER 2022-05-25 20:27 | Emergency (ER) | payer MEDICAID, SELFPAY ==
[2022-05-25 20:30] VITALS: BP 127/90; PULSE 112; RESP 20; TEMP 36.8; O2SAT 97
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
[2022-05-25 21:37] LABS: COVID-19 PCR Negative (Negative); Influenza A PCR Negative (Negative); Influenza B PCR Negative (Negative); RSV PCR Negative (Negative)
[2022-05-25 21:40] LABS: Mono Screening Negative (Negative)
[2022-05-25 21:40] LABS: Source Nasopharynx
== END 2022-05-25 22:28 | disposition home or self-care (01) ==
PROVIDERS: Emergency Provider Registered Nurse Emergency; PCP Nurse Practitioner
DX: J06.9 Acute upper respiratory infection, unspecified (principal); J45.990 Exercise induced bronchospasm; F90.9 Attention-deficit hyperactivity disorder, unspecified type; Z79.51 Long term (current) use of inhaled steroids; Z20.822 Contact with and (suspected) exposure to COVID-19
CPT/HCPCS: 87637; 87880; 99282; 86308; 99283

== ENCOUNTER 2022-06-05 16:45 | Emergency (ER) | payer MEDICAID, SELFPAY ==
[2022-06-05 16:49] VITALS: BP 108/65; PULSE 84; RESP 14; TEMP 37.6; O2SAT 98
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
[2022-06-05 17:43] LABS: *AMPHETAMINES SCREEN URINE Negative (Negative); *BARBITURATES SCREEN URINE Negative (Negative); *BENZODIAZEPINES SCREEN URINE Negative (Negative); Cannabinoids THC Negative (Negative); Cocaine Screen,Urine Negative (Negative); METHADONE URINE SCREEN Negative (Negative); OPIATES URINE SCREEN Negative (Negative); Tricyclic Antidepressants Negative (Negative)
[2022-06-05 17:44] LABS: Abs Immature Grans 0.02 10^3/uL (0.0-0.06); Absolute Basophil Count 0.05 10^3/uL (0.0-0.2); Absolute Eosinophil Count 0.15 10^3/uL (0.0-0.7); Absolute Lymphocyte Count 2.15 10^3/uL (1.2-3.4); Absolute Monocyte Count 0.45 10^3/uL (0.1-0.8); Absolute Neutrophil Count 4.67 10^3/uL (1.2-6.7); Basophils % 0.7; HCT 40.5 % (36.0-46.0); HGB 13.5 g/dL (11.2-15.7); Immature Grans % 0.3; Lymphocytes % 28.7; MCH 29.7 pg (27.0-33.0); MCHC 33.3 % (32.0-36.0); MCV 89 fL (80-95); MPV 9.6 fL (8.0-11.0); Neutrophils % 62.3; Platelet Count 265 10^3/uL (130-400); RBC 4.55 10^6/uL (3.93-5.22); RDW 11.9 % (11.7-14.6); RDW-SD 38.8 fL; WBC 7.49 10^3/uL (4.4-10.8)
[2022-06-05 17:48] LABS: Bilirubin Negative (Negative); Blood Negative (Negative); Clarity Clear (Clear); Glucose Negative (Negative); Ketones Trace mg/dL (Negative); Leukocyte Esterase Negative (Negative); Nitrite Negative (Negative); Specific Gravity 1.025 (1.005-1.025)
[2022-06-05 17:55] LABS: ALT 18 U/L (14-59); AST 11 U/L (15-37); Albumin 3.7 g/dL (3.4-5.0); Alkaline Phosphatase 89 U/L (46-116); Anion Gap 7.1 mmol/L (3-11); BUN 9 mg/dL (7-18); CO2 28.9 mmol/L (21.0-32.0); CREATININE 0.9 mg/dL (0.55-1.02); Calcium 8.7 mg/dL (8.5-10.1); Chloride 107 mmol/L (98-107); Estimated GFR 93.28 (mL/min/1.73m2); Glucose 89 mg/dL (74-106); Lipase 28 U/L (16-77); Potassium 3.3 mmol/L (3.5-5.1); Sodium 143 mmol/L (136-145); Total Protein 6.6 g/dL (6.4-8.2)
--- NOTE | 2022-06-05 19:04 | NUR.NOTE ---
Referral sent to Surgery for GI Bleed and Mental Health for Depression :
== END 2022-06-05 19:17 | disposition home or self-care (01) ==
PROVIDERS: Emergency Provider Physician Assistant; PCP Nurse Practitioner
DX: K92.1 Melena (principal); F32.A Depression, unspecified; Z90.49 Acquired absence of other specified parts of digestive tract
CPT/HCPCS: 80053; 80307; 81025; 83690; 99283; 81003; 85025; J3490

== ENCOUNTER 2022-07-04 12:54 | Outpatient (REF) | payer MEDICAID, SELFPAY ==
[2022-07-05 14:21] LABS: Chlamydia Result Negative (Negative); GC Result Negative (Negative)
== END 2022-07-04 12:55 | disposition home or self-care (01) ==
LOC: LBN 12:54
PROVIDERS: PCP Nurse Practitioner; Referring Provider Nurse Practitioner; Visit Provider Nurse Practitioner
DX: N89.8 Other specified noninflammatory disorders of vagina (principal); L29.2 Pruritus vulvae
CPT/HCPCS: 87491; 87591; 87480; 87510; 87660

== ENCOUNTER 2022-09-20 22:17 | Emergency (ER) | payer MEDICAID, SELFPAY ==
[2022-09-20 22:20] VITALS: BP 125/76; PULSE 88; RESP 16; TEMP 36.8; O2SAT 99
--- NOTE | 2022-09-20 22:30 | DI.RAD_ITS ---
Exam(s) XR WRIST RT COMPLETE EXAM: XR WRIST RT COMPLETE CLINICAL HISTORY: Wrist pain. TECHNIQUE: 2D digital imaging was performed of the right wrist. Three views were obtained. PA, lat eral and oblique views were obtained. COMPARISON: CR,XR XR hand RT complete from 12/23/2018 FINDINGS: BONES: No acute fracture is present. No bony destructive lesion is seen. JOINTS: The carpal bones are normally aligned. SOFT TISSUE: Normal. IMPRESSION: Unremarkable radiographs of the right wrist. DATA REPOSITORY: RADIATION DOSE DELIVERED:
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
--- NOTE | 2022-09-20 23:21 | DI.VRAD_ITS ---
PROCEDURE INFORMATION: Exam: XR Right Wrist Exam date and time: 09/20/2022 10:50 PM Age: 22 years old Clinical indication: Pain; Wrist; Right; Additional info: Wrist pain TECHNIQUE: Imaging protocol: Radiologic exam of the right wrist. Views: 3 or more views. COMPARISON: CR XR hand RT complete 12/23/2018 10:57 PM FINDINGS: Bones/joints: No aggressive osseous lesions. Soft tissues: Normal. IMPRESSION: No acute findings. Dictated and Authenticated by: Martir Browning MD. Ordering:CHEO Dodge MD
== END 2022-09-20 23:19 | disposition home or self-care (01) ==
PROVIDERS: Emergency Provider Registered Nurse Emergency; PCP Student in an Organized Health Care Education/Training Program
DX: M25.531 Pain in right wrist (principal)
CPT/HCPCS: 99283; 73110

== ENCOUNTER 2022-10-17 13:41 | Outpatient (REF) | payer MEDICAID, SELFPAY ==
[2022-10-17 21:05] LABS: Bilirubin Negative (Negative); Blood Negative (Negative); Clarity Sl Cloudy (Clear); Glucose Negative (Negative); Ketones Negative (Negative); Leukocyte Esterase Trace (Negative); Nitrite Negative (Negative); Specific Gravity 1.015 (1.005-1.025); Urobilinogen 0.2 mg/dL (Up to 0.2)
[2022-10-17 21:15] LABS: Bacteria Moderate HPF (Negative); C & S Indicated? No/Sq. Contamination; Casts Negative LPF (Negative); Crystals Negative HPF (Negative); Epithelial Cells Many HPF (Negative); Mucus Negative (Negative); RBC 0-2 HPF (0-2)
== END 2022-10-17 13:42 | disposition home or self-care (01) ==
LOC: LBN 13:41
PROVIDERS: PCP Student in an Organized Health Care Education/Training Program; Visit Provider Physician Assistant
DX: R10.9 Unspecified abdominal pain (principal)
CPT/HCPCS: 81003; 81015

== ENCOUNTER 2022-10-17 15:18 | Outpatient (CLI) | payer MEDICAID, SELFPAY ==
--- NOTE | 2022-10-17 12:45 | DI.CT_ITS ---
Exam(s) CT ABDOMEN PELVIS W EXAM: CT ABDOMEN PELVIS W CLINICAL HISTORY: abdominal pain c/o pancreatitis. TECHNIQUE: Imaging Protocol: Axial computed tomography images with coronal and sagittal reformatted images were created and reviewed CONTRAST MATERIAL: Intravenous: Omnipaque 350 Contrast volume:100 ml Oral: yes / COMPARISON: CT CT ABDOMEN PELVIS W from 07/23/2020 US US ABDOMEN LIMITED from 02/18/2022 FINDINGS: ABDOMEN: Lung Bases: Normal where visualized. Liver: Normal density. No measurable mass. Gallbladder and biliary tract: No status post cholecystectomy. Biliary drainage catheter seen extend ing into the duodenum. No biliary dilatation. Pancreas: Normal density, no abnormal calcifications or inflammatory process. Spleen: Normal. Kidneys: Normal size, contour and axis. No radiodense stones or obstructive uropathy. No suspicious m asses seen. Adrenal glands: No masses seen. Abdominal Aorta: Abdominal portion non-dilated. Soft tissues: Unremarkable. PELVIS: Bladder: No gross wall thickening. No calculi.No focal mass. Bowel: No obstruction. No bowel wall thickening. Appendix not seen. No right lower quadrant inflam mation. Peritoneal cavity: No ascites, collection or mesenteric inflammatory response. Bones: Unremarkable for age. Reproductive organs: Uterus retroverted. Lymph nodes: Unremarkable. Impression: Status post cholecystectomy placement of biliary drain. No evidence of biliary dilatation. No pancr eatic inflammation. RADIATION DOSE DELIVERED: 743.05mGy.cm Total DLP DATA REPOSITORY: All CT scans at this facility are submitted to the National Radiology Data Registry (NRDR) Dose Index Registry (DIR) with the [employer] (ACR). RADIATION OPTIMIZATION: All CT scans at this facility use at least one of these dose optimization te chniques: automated exposure control; mA and/or kV adjustment per patient size (includes targeted exa ms where dose is matched to clinical indication); or iterative reconstruction.
[2022-10-17] MEDS: Barium Sulfate 2% W/V-Berry Smoothie 450 ML BTL PO (13:08)
[2022-10-17] MEDS: Normal Saline Flush 10 ML SYR IVP (15:20)
[2022-10-17] MEDS: Normal Saline - Diluent 50 ML VIAL IJ (15:21)
[2022-10-17] MEDS: Omnipaque 350 MG/ML 100 ML BTL IJ (15:21)
== END 2022-10-17 15:38 ==
LOC: DI 15:18
PROVIDERS: PCP Student in an Organized Health Care Education/Training Program; Visit Provider Physician Assistant
DX: R10.9 Unspecified abdominal pain (principal); Z96.89 Presence of other specified functional implants
CPT/HCPCS: 74177; J3490

== ENCOUNTER 2023-01-26 14:56 | Emergency (ER) | payer MEDICAID, SELFPAY ==
[2023-01-26 14:59] VITALS: BP 123/85; PULSE 81; RESP 18; TEMP 36.7; O2SAT 100
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
[2023-01-26] MEDS: Dexamethasone 10 MG/ML VIAL PO (15:18)
[2023-01-26] MEDS: Ketorolac 15 MG/ML VIAL IM (15:18)
[2023-01-26] MEDS: Lidocaine 5% Patch 1 PATCH TP (15:18)
--- NOTE | 2023-01-26 15:28 | DI.RAD_ITS ---
Exam(s) XR SHOULDER RT COMPLETE 2+V EXAM: XR SHOULDER RT COMPLETE 2+V CLINICAL HISTORY: shoulder pain. TECHNIQUE: 2D digital imaging was performed. Five views. COMPARISON: CR XR shoulder LT complete 2+V from 09/26/2018 FINDINGS: BONES: No acute fracture is present. No bony destructive lesion is seen. JOINTS: No dislocation present. AC joint not widened. SOFT TISSUE: Normal. IMPRESSION: Unremarkable radiographs of the right shoulder. DATA REPOSITORY: RADIATION DOSE DELIVERED:
--- NOTE | 2023-01-26 15:47 | DI.VRAD_ITS ---
PROCEDURE INFORMATION: Exam: XR Right Shoulder Exam date and time: 01/26/2023 3:22 PM Age: 22 years old Clinical indication: Pain; Shoulder; Right TECHNIQUE: Imaging protocol: Radiologic exam of the right shoulder. Views: 2 or more views. COMPARISON: CR XR CHEST 2V PA LATERAL 01/05/2022 22:41 FINDINGS: Bones/joints: Unremarkable. Soft tissues: Unremarkable. IMPRESSION: No acute bony findings. If clinical symptoms persist recommend followup film in 7-10 days. Dictated and Authenticated by: Jessica Henson MD. Ordering:SAL Ny MD
--- NOTE | 2023-01-26 16:09 | NUR.NOTE ---
Nursing Note:referral to ortho
[2023-01-26 16:13] VITALS: BP 110/74; PULSE 64; RESP 12; O2SAT 98
== END 2023-01-26 16:13 | disposition home or self-care (01) ==
PROVIDERS: Emergency Provider Emergency Medicine; PCP Student in an Organized Health Care Education/Training Program
DX: M25.511 Pain in right shoulder (principal); F17.290 Nicotine dependence, other tobacco product, uncomplicated
CPT/HCPCS: 96372; 99283; 73030; J1100; J1885

== ENCOUNTER 2023-03-17 21:43 | Emergency (ER) | payer MEDICAID, SELFPAY ==
[2023-03-17 21:46] VITALS: BP 122/73; PULSE 79; RESP 18; TEMP 37; O2SAT 98
--- NOTE | 2023-03-17 22:00 | DI.RAD_ITS ---
Exam(s) XR HUMERUS LT EXAM: XR HUMERUS LT CLINICAL HISTORY: arm pain. TECHNIQUE: 2D digital imaging was performed. Two views. COMPARISON: No exams were available for comparison FINDINGS: BONES: No acute fracture is present. No bony destructive lesion is seen. Visualized portion of elbow and shoulder joints are unremarkable. SOFT TISSUE: Normal. IMPRESSION: Unremarkable radiographs of the left humerus. DATA REPOSITORY: RADIATION DOSE DELIVERED:
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
[2023-03-17] MEDS: Ibuprofen 600 MG TAB PO (22:10)
[2023-03-17 22:52] VITALS: BP 120/72; PULSE 80; RESP 14; O2SAT 98
--- NOTE | 2023-03-17 22:53 | DI.VRAD_ITS ---
PROCEDURE INFORMATION: Exam: XR Left Humerus Exam date and time: 03/17/2023 10:31 PM Age: 22 years old Clinical indication: Upper arm; Left; Patient HX: Pain post fall TECHNIQUE: Imaging protocol: Radiologic exam of the left humerus. Views: 2 or more views. COMPARISON: No relevant prior studies available. FINDINGS: Bones/joints: Normal. Soft tissues: Normal. IMPRESSION: No acute findings. Dictated and Authenticated by: Rolf Feliciano MD. Ordering:LILI Alvarado MD
== END 2023-03-17 22:52 | disposition home or self-care (01) ==
PROVIDERS: Emergency Provider Emergency Medicine; PCP Student in an Organized Health Care Education/Training Program
DX: S40.022A Contusion of left upper arm, initial encounter (principal); S40.012A Contusion of left shoulder, initial encounter; W00.0XXA Fall on same level due to ice and snow, initial encounter; Y93.01 Activity, walking, marching and hiking; Y92.480 Sidewalk as the place of occurrence of the external cause; F17.210 Nicotine dependence, cigarettes, uncomplicated
CPT/HCPCS: 99283; 73060; 99282

== ENCOUNTER 2023-03-22 16:28 | Outpatient (REF) | payer MEDICAID, SELFPAY ==
[2023-03-24 23:33] LABS: Hepatitis B Surface Ag Negative (Negative)
[2023-03-24 23:38] LABS: Hepatitis C Ab w Rflx HCV PCR Negative (Negative)
[2023-03-24 23:42] LABS: HIV-1/2 Ag & Ab Screen Negative (Negative)
[2023-03-25 10:52] LABS: Syphilis Serology (RPR) Negative (Negative)
[2023-03-25 15:24] LABS: GC Result Negative (Negative)
[2023-03-25 15:46] LABS: Chlamydia Result Positive (Negative)
== END 2023-03-22 16:29 | disposition home or self-care (01) ==
LOC: NCHCN 16:28
PROVIDERS: PCP Student in an Organized Health Care Education/Training Program; Visit Provider Physician Assistant Medical
DX: Z11.3 Encounter for screening for infections with a predominantly sexual mode of transmission (principal); Z11.4 Encounter for screening for human immunodeficiency virus [HIV]; Z11.59 Encounter for screening for other viral diseases
CPT/HCPCS: 86803; 87340; 87389; 87491; 87591; 86592; 87480; 87510; 87660

== ENCOUNTER 2023-05-12 13:16 | Outpatient (REF) | payer MEDICAID, SELFPAY ==
[2023-05-12 21:49] LABS: Bilirubin Small (Negative); Blood Negative (Negative); Clarity Turbid (Clear); Glucose Negative (Negative); Ketones Trace mg/dL (Negative); Leukocyte Esterase Small (Negative); Nitrite Negative (Negative); Specific Gravity 1.025 (1.005-1.025)
[2023-05-12 22:10] LABS: Bacteria Many HPF (Negative); Epithelial Cells Rare HPF (Negative); RBC Negative HPF (0-2)
[2023-05-12 22:11] LABS: C & S Indicated? Yes; Casts Negative LPF (Negative); Crystals Few Amorphous HPF (Negative); Mucus Negative (Negative)
[2023-05-14 12:23] LABS: Chlamydia Result Negative (Negative); GC Result Negative (Negative)
== END 2023-05-12 13:17 | disposition home or self-care (01) ==
LOC: LBN 13:16
PROVIDERS: PCP Student in an Organized Health Care Education/Training Program; Visit Provider Physician Assistant
DX: R30.0 Dysuria (principal); R39.89 Other symptoms and signs involving the genitourinary system; Z11.3 Encounter for screening for infections with a predominantly sexual mode of transmission
CPT/HCPCS: 87491; 87591; 81003; 81015; 87086; 87480; 87510; 87660

== ENCOUNTER 2023-05-12 13:51 | Emergency (ER) | payer MEDICAID, SELFPAY ==
[2023-05-12 14:10] VITALS: BP 99/59; PULSE 80; RESP 17; TEMP 36.8; O2SAT 99
[2023-05-12 14:21] VITALS: BP 99/59; PULSE 80; RESP 17; TEMP 36.8; O2SAT 99
[2023-05-12 14:43] LABS: Abs Immature Grans 0.01 10^3/uL (0.0-0.06); Absolute Basophil Count 0.04 10^3/uL (0.0-0.2); Absolute Lymphocyte Count 1.83 10^3/uL (1.2-3.4); Absolute Monocyte Count 0.29 10^3/uL (0.1-0.8); Absolute Neutrophil Count 3.34 10^3/uL (1.2-6.7); Basophils % 0.7; Eosinophils % 1.8; HCT 41.5 % (36.0-46.0); Immature Grans % 0.2; Lymphocytes % 32.6; MCH 30.2 pg (27.0-33.0); MCHC 33.7 % (32.0-36.0); MCV 90 fL (80-95); MPV 9.7 fL (8.0-11.0); Monocytes % 5.2; Neutrophils % 59.5; Platelet Count 251 10^3/uL (130-400); RBC 4.63 10^6/uL (3.93-5.22); RDW 11.8 % (11.7-14.6); RDW-SD 38.5 fL; WBC 5.61 10^3/uL (4.4-10.8)
[2023-05-12 14:45] LABS: Bilirubin Negative (Negative); Blood Negative (Negative); Clarity Clear (Clear); Glucose Negative (Negative); Ketones Trace mg/dL (Negative); Leukocyte Esterase Negative (Negative); Nitrite Negative (Negative); Specific Gravity >= 1.030 (1.005-1.025)
[2023-05-12 15:01] LABS: ALT 16 U/L (14-59); AST 11 U/L (15-37); Albumin 4.2 g/dL (3.4-5.0); Alkaline Phosphatase 65 U/L (46-116); BUN 11 mg/dL (7-18); Bilirubin, Total 1.3 mg/dL (0.2-1.0); CREATININE 0.8 mg/dL (0.55-1.02); Calcium 9.6 mg/dL (8.5-10.1); Chloride 107 mmol/L (98-107); Estimated GFR 106.77 (mL/min/1.73m2); Glucose 95 mg/dL (74-106); Lipase 33 U/L (16-77); Potassium 3.7 mmol/L (3.5-5.1); Sodium 143 mmol/L (136-145); Total Protein 7.4 g/dL (6.4-8.2)
[2023-05-12] MEDS: Ketorolac 15 MG/ML VIAL 10 MG IVP (15:20)
[2023-05-12] MEDS: Normal Saline 1,000 ML 1000 ML IV (15:20)
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
== END 2023-05-12 16:11 | disposition home or self-care (01) ==
PROVIDERS: Emergency Provider Emergency Medicine; PCP Student in an Organized Health Care Education/Training Program
DX: R30.0 Dysuria (principal); R17 Unspecified jaundice
CPT/HCPCS: 36415; 80053; 81025; 83690; 96361; 96374; 96375; 99284; 81003; 85025; J1885

== ENCOUNTER 2023-07-17 10:34 | Emergency (ER) | payer MEDICAID, SELFPAY ==
[2023-07-17 10:37] VITALS: BP 116/70; PULSE 81; RESP 16; TEMP 36.6; O2SAT 100
--- NOTE | 2023-07-17 10:45 | DI.RAD_ITS ---
Exam(s) XR FINGER LT INDEX EXAM: XR FINGER LT INDEX CLINICAL HISTORY: Injury. TECHNIQUE: 2D digital imaging was performed. Three views. COMPARISON: None. FINDINGS: BONES: No acute fracture is present. No bony destructive lesion is seen. JOINTS: No dislocation present. SOFT TISSUE: Normal. IMPRESSION: No evidence of acute fracture, dislocation, or subluxation. DATA REPOSITORY: RADIATION DOSE DELIVERED:
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
[2023-07-17 11:34] VITALS: BP 116/70; PULSE 81; RESP 16; TEMP 36.6; O2SAT 100
== END 2023-07-17 12:09 | disposition home or self-care (01) ==
PROVIDERS: Emergency Provider Physician Assistant; PCP Student in an Organized Health Care Education/Training Program
DX: S60.941A Unspecified superficial injury of left index finger, initial encounter (principal); F17.290 Nicotine dependence, other tobacco product, uncomplicated; W23.0XXA Caught, crushed, jammed, or pinched between moving objects, initial encounter; Y93.89 Activity, other specified; Y92.89 Other specified places as the place of occurrence of the external cause
CPT/HCPCS: 99283; 73140

== ENCOUNTER 2023-12-09 08:56 | Emergency (ER) | payer MEDICAID, SELFPAY ==
--- OUTSIDE RECORDS SUMMARY | 2023-12-09 09:06 | XMS_ITS | Encounter Summary ---
Author Organization [facility] [place] [address] Care Team Providers Care Modeling Manager Name Role Phone None Primary Care Provider Unavailabl e Encounter Details Date Type Department Care Team (Late st Contact Info) Description 06/12/2022 [place] [phone] Raven Paula, RN Social History Tobacco Use Types Packs/Day Years Used Date Smoking Tobacco: Never Smokeless Tobacco: Current Comments:vape pen Alcohol Use Standard Drinks/Week Comments Not Currently 0 (1 standard drink = 0.6 oz pur e alcohol) Sex and Gender Information Value Date Recorded Sex Assigned at Not on file Gender Identity Not on file Sexual Orientation Not on file documented as of this encounter Miscellaneous Notes * Telephone Encounter - Raven Paula RN - 06/12/2022 9:55 AM EST Incoming VM from Lawanda regarding pain since recent ERCP on 06/10. Return call placed, Lawanda states since having the stents placed she has been experiencing abdominal pain that radiates to her back. This pain wakes her from sleep, at it's worst it is 8/10, it comesand goes. She is unable to press on her belly. She is able to eat and drink normally, moving her bowels and emptying her bladder normally. She hasnot tried anything for pain relief. Advised that some pain is normal with these procedures and should lessen as days go by. Trying warm or cold may help as well as alternating Tylenol and Ibuprofen for pain. Forwarded for review Call placed to relay message from Dr Felipe as follows: If pain does not improve she should call back or go to ED-she could have post ERCP pancreatitis. Lawanda expressed understanding and agreement with the plan documented in this encounter Plan of Treatment Not on file documented as of this encounter Visit Diagnoses Not on filedocumented in this encounter Care Teams Modeling Manager Relationship Specialty Start Date End Date None None PCP - General 02/21/22 documented as of this encounter
--- OUTSIDE RECORDS SUMMARY | 2023-12-09 09:06 | XMS_ITS | Encounter Summary ---
Author Organization [facility] [place] [address] Care Team Providers Care Matcher Offbearer Name Role Phone None Primary Care Provider Unavailabl e Encounter Details Date Type Department Care Team (Late st Contact Info) Description 11/02/2023 Interpretation Only [address] [phone] Ever Irwin MD [address] [place] [address] Social History Tobacco Use Types Packs/Day Years Used Date Smoking Tobacco: Never Smokeless Tobacco: Current Comments:vape pen Alcohol Use Standard Drinks/Week Comments Yes 0 (1 standard drink = 0.6 oz pur e alcohol) 3 times per year DH IPV Inpatient Questions Answer Date Recorded Prevent Contact with Others Not on file 12/13 Feels Threatened by Someone no 12/13 Feels Unsafe at Home or Work/School no 12/28/2022 Physical Signs of Abuse Present no 12/28/2022 Sex and Gender Information Value Date Recorded Sex Assigned at Not on file Gender Identity Not on file Sexual Orientation Not on file documented as of this encounter Plan of Treatment Not on file documented as of this encounter Procedures Procedure Name Priority Date/Time Associated Diagnosis Comments XR CHEST ONE VIEW STAT 11/02/2023 12: 34 AM EDT documented in this encounter Results * XR Chest One View (11/02/2023 12:34 AM EDT) PT CLASS E RAD ADMITDTTM [id number] RAD PT RAD INFO [id number]^Findvenkatesh y^Ever^Xiomy d RAD EXAM DESC XCXR1^XR Chest 1 View^[facility] WORKSTATION ID [id number] [facility] Anatomical Region Laterality Modality Chest N/A Radiographic Bianca ging 11/02/2023 12:2 2 AM EDT Impressions 11/02/2023 12:52 AM EDT No acute cardiopulmonary process seen. Preliminary report signed by: Markos Cali MD at 11/02/2023 12:45 AM I have personally reviewed the image(s) and the resident's interpretation and agree with the findings, Esteban Sweeney MD at 11/02/2023 12:52 AM Thank you for letting us participate in the care of this patient. ??If you are a health care provider and have any questions regarding this report, please contact the number below. ??For patients who have questions please contact the health health care / medical job titles that requested your imaging first. ? Narrative 11/02/2023 12:52 AM EDT EXAMINATION: XR Chest 1 View CLINICAL HISTORY: chest pain TECHNIQUE: Single AP view of the chest COMPARISON: None FINDINGS: No confluent airspace opacity, pleural effusion, or pneumothorax definitively identified. Cardiomediastinal contours appear within normal limits. Surgical clips project over the right upper quadrant. Procedure Note Esteban Sweeney MD - 11/02/2023 EXAMINATION: XR Chest 1 View CLINICAL HISTORY: chest pain TECHNIQUE: Single AP view of the chest COMPARISON: None FINDINGS: No confluent airspace opacity, pleural effusion, or pneumothoraxdefinitively identified. Cardiomediastinal contours appear within normal limits. Surgical clips project over the right upper quadrant. IMPRESSION No acute cardiopulmonary process seen. Preliminary report signed by: Markos Cali MD at 11/02/2023 12:45 AM I have personally reviewed the image(s) and the resident's interpretationand agree with the findings, Esteban Sweeney MD at 11/02/2023 12:52 AM Thank you for letting us participate in the care of this patient. If youare a health care provider and have any questions regarding this report,please contact the number below. For patients who have questions please contactthe health health care / medical job titles that requested your imaging first. Ever Irwin MD IMG DX ORDERABL ES documented in this encounter Visit Diagnoses Not on filedocumented in this encounter Care Teams Matcher Offbearer Relationship Specialty Start Date End Date None None PCP - General 02/21/22 documented as of this encounter
--- OUTSIDE RECORDS SUMMARY | 2023-12-09 09:06 | XMS_ITS | Continuity of Care Document ---
Author Organization [facility] Address [address] [place] [address] Care Team Providers Care Medical Technologist Clinical Name Role Phone CHRISTIE MULLEN NP Primary Care Physician [phone] Encounter [facility]TT[facility]_IN FIN NBR [id number] Date(s): 05/25/22 - 05/25/[address] [phone] Discharge Disposition: Left Without Being Seen Attending Physician: Nuzhat Santiago MD Allergies, Adverse Reactions, Alerts No Known Allergies Problem List Condition Confirmation Course Effective Dates Status Health St atus Informant Enterobiasis Confirmed Active Social History Social History Type Response Tobacco Never tobacco user T obacco Use:. Sex Patient Care team information Care Team Personnel Name: CHRISTIE MULLEN NP Position: No Access Member Role: Primary Care Physician Address: Address: [address] [place] [phone]
--- OUTSIDE RECORDS SUMMARY | 2023-12-09 09:06 | XMS_ITS | Continuity of Care Document ---
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 Role Phone PAZ BOURGEOIS, CHRISTIE Snyder Primary Care Physician [phone] Encounter LTTL_ME FIN NBR [id number] Date(s): 04/30/22 - 04/30/[address] [address] [place] Encounter Diagnosis Enterobiasis(Discharge Diagnosis) - 04/30/22 Discharge Disposition: Home or Self Care Attending Physician: Shravan Saul MD Admitting Physician: Shravan Saul MD Allergies, Adverse Reactions, Alerts No Known Allergies Functional Status 04/30/22 Other exposure to Infectious Disease Non e Problem List Condition Confirmation Course Effective Dates Status Health [facility] Informant Enterobiasis Confirmed Active Vital Signs Most recent to oldest [Reference Range]: 1 Temperature Temporal Artery [36-38 Deg C ] 36.5 Deg C (04/30/22 12:23 PM) Peripheral Pulse Rate [60-100 bpm] 80 bp m (04/30/22 12:23 PM) Respiratory Rate [12-24 br/min] 20 br/mi n (04/30/22 12:23 PM) Blood Pressure [90-140/60-90 mmHg] 106/6 5mmHg (04/30/22 12:23 PM) Weight Dosing 68.00 kg (04/30/22 12:45 PM) Weight Estimated 68.00 kg (04/30/22 12:23 PM) Height/Length Dosing 158.000 cm (04/30/22 12:45 PM) Height/Length Estimated 158.000 cm (04/30/22 12:23 PM) Social History Social History Type Response Tobacco Never tobacco user T obacco Use:. Sex Hospital Discharge Instructions Patient Education 04/30/2022 12:07:13 Pinworms Pinworms Pinworms are a type of parasite that causes a common infection of the intestines. They are small, white worms that spread very easily from person to person (are contagious). What are the causes? This condition is caused by swallowing the eggs of a pinworm. The eggs can be found in infected (contaminated) food or beverages or on hands, toys, or clothing. After the eggs have been swallowed, they crowder in the intestines. When they grow and mature, the female worms travel out of the opening between the buttocks (anus) and lay eggs in the anal area at night. These eggs then contaminate everything they come into contact with, including skin, clothes, towels, and bedding. This continues the cycle of infection. What increases the risk? This condition is likely to develop in children who come in contact with many other people, such asat a daycare or school, and in people who live in long-term care facilities. It can then be passed to family members or other caregivers. What are the signs or symptoms? Symptoms of this condition include: ??? Itching at the anus, or the area around the anus, especially at night. ??? Trouble sleeping and restlessness. ??? Nausea or pain in the abdomen. ??? Bedwetting. ??? Trouble urinating. ??? Vaginal discharge or itching. In some cases, there are no symptoms. In rare cases, allergic reactions or worms traveling to otherparts of the body may cause problems, including pain, additional infection, or inflammation. How is this diagnosed? This condition is diagnosed based on your medical history and a physical exam. Your health care provider may ask you to apply a piece of adhesive tape to your anal area in the morning before using the bathroom. The eggs will stick to the tape. Your health care provider will then look at the tape under a microscope to confirm the diagnosis. How is this treated? This condition may be treated with: ??? Anti-parasitic oral medicine to get rid of the pinworms. ??? Topical medicines to help with itching, such as petroleum gel. Your health care provider may recommend that everyone in your household and any caregivers also be treated for pinworms. Follow these instructions at home: Medicines ??? Take or apply [id number] and prescription medicines only as told by your health care provider. ??? If you were prescribed an anti-parasitic medicine, take it as told by your health care provider. Do not stop taking the anti-parasitic medicine even if you start to feel better. General instructions ??? Wash your hands often with soap and water for at least 20 seconds. If soap and water are not available, use hand tailing machine operator. ??? Keep your nails short, and do not bite your nails. ??? Change clothing and underwear daily. ??? Wash bedding, pajamas, underwear, and towels in hot water after each use until pinworms are gone. ??? Do not scratch the skin around the anus. ??? Take a shower instead of a bath until the infection is gone. ??? Keep all follow-up visits. This is important. How is this prevented? Make sure that all members of your household wash their hands often to prevent the spread of infection. ??? Keep nails trimmed, avoid biting them, and do not scratch around the anus. ??? Wash clothing and bedding every morning in hot water. ??? Vacuum rugs and floors to try to eliminate eggs. ??? Avoid oral???anal contact during sex. ??? Shower every morning to help remove eggs. ??? Maintain sanitary habits as recurrence is common. Where to find more information ??? Centers for Disease Control and Prevention: www.cdc.gov Contact a health care provider if: ??? You have new symptoms. ??? You do not get better with treatment. ??? Your symptoms get worse. Summary ??? Pinworm infection can occur in children who come in contact with many other people, such as at a daycare or school, and in people who live in long-term care facilities. ??? After pinworm eggs are swallowed, they grow in the intestine. The worms travel out of the anus and lay eggs in that area at night. ??? The most common symptoms of infection are itching around the anus, difficulty sleeping, and restlessness. ??? The best way to control the spread of infection is by washing hands often, keeping nails trimmed, changing clothing and underwear daily, and washing bedding and towels in hot water after each use. This information is not intended to replace advice given to you by your health care provider. Make sure you discuss any questions you have with your health care provider. Document Revised: 02/19/2021 Document Reviewed: 02/19/2021 Else[employer] Patient Education ?? 2021 [employer] Follow Up Care 04/30/2022 12:23:25 With:primary care provider Address: When:5 to 7 days Comments:if not improving Discharge instructions * Event Display: Discharge Instructions Physician Emergency department Note * Ivon Selby TELEGRAPH OFFICE TELEPHONE CLERK: PERFORM Event Display: ED Note Physician Authored Date: [id number] JAG CASSIDY :2000 Age:21 years Sex:Female Visit Date:04/30/2022 Primary Care Physician: CHRISTIE MULLEN NP Basic Information Time Seen: Ivon Selby TELEGRAPH OFFICE TELEPHONE CLERK / 04/30/2022 12:41 Chief Complaint Pt reports he puppy has worms and she noticed worms in her stool today. History Of Present Illness: Patient presents for evaluation of abdominal discomfort with anal pruritus and worms in stool also with known pinworm infection in her dog.?? She has been eating and drinking Review of Systems: Constitutional:?No??fevers,?No??chills,?No??sweats Gastrointestinal:?Nonausea,?No??vomiting,?No??diarrhea, Positive for worms in stool and anal pruritus Genitourinary:?No??No dysuria urgency or frequency Musculoskeletal:??No??back pain,??No??neck pain,??No??joint pain,??No??muscle pain,??No??decreased range of motion Integumentary:?No??rash,?Positive for??pruritus,?No??abrasions Neurologic: Alert & oriented X 4 Psychiatric:?No??anxiety,?No??depression Physical Exam Vitals & Measurements T:??36.5?C ??(Temporal Artery)?? HR:??80??(Peripheral)?? RR:??20?? BP:??106/65?? SpO2:??100%?? HT:??158.000??cm?? WT:??68.00??kg??(Estimated)?? O2 Therapy:??Room air?? General: Alert and oriented, well nourished,?No??acute distress HENT: Normocephalic Neck: Supple, non-tender,?? Lungs:?Non-labored?? respiration Heart:?Normal?? rate,?Regular??rhythm Abdomen: Soft, non-tender, non-distended,?Normal?? bowel sounds,?? Musculoskeletal:?Normal?? range of motion and strength Skin: Skin is warm, dry and pink,?No??rashes,?No??lesions Neurologic: Awake, alert and oriented X4 Psychiatric: Cooperative, appropriate mood and affect Medical Decision Making: known pinworms in dog, will treat accordingly Procedure No Qualifying Data Assessment/Plan 1.??Enterobiasis??B80 take mebendazole as directed ?? Patient Education Pinworms Follow Up With When Contact Information primary care provider Within 5 to 7 days Additional Instructions: if not improving Problem List/Past Medical History Ongoing Enterobiasis Historical No qualifying data Allergies No Known Allergies Social History Electronic Cigarette/Vaping Electronic Cigarette Use: Never. Tobacco Never tobacco user Tobacco Use:. Electronically Signed on 04/30/22 01:15 PM Ivon Selby APRN Emergency department Discharge instructions * Ivon Selby APRN: PERFORM Event Display: ED Discharge Information Authored Date: [id number] JAG CASSIDY :2000 Age:21 years Sex:Female Visit Date:04/30/2022 Primary Care Physician: CHRISTIE MULLEN NP Discharge Instructions We would like to thank you for allowing us to assist you with your healthcare needs. The following includes patient education materials and information regarding your injury/illness. Diagnosis from Today's Visit Enterobiasis Discharge Vitals Temperature??(Temporal Artery) 97.7 ??F (36.5 ??C) Heart Rate??(Peripheral) 80 Respiratory Rate?? 20 Blood Pressure?? 106/65?? Height?? 62.20 in (158.000 cm) Weight??(Estimated) 149.94 lb (68.00 kg) Allergies No Known Allergies What to Do Next Instructions from Your Care Team ??In addition to treatment, all bedding and clothes should be washed. Hygienic measures, such as clipping of fingernails and frequent handwashing are also helpful for reducing reinfection and spread of infection. Showering is preferred over taking a bath, because showering avoids potential contamination of bath water with pinworm eggs You Need to Schedule the Following Appointments Follow Up with??primary care provider When:??Within 5 to 7 days Why: if not improving You were treated today on an emergency basis; it may be garcia to contact your primary care provider to notify them of your visit today. You may have been referred to your regular doctor or a specialist, please follow up as instructed. If your condition worsens or you can't get in to see the doctor, contact the Emergency Department. Education Materials Pinworms Pinworms are a type of parasite that causes a common infection of the intestines. They are small, white worms that spread very easily from person to person (are contagious). What are the causes? This condition is caused by swallowing the eggs of a pinworm. The eggs can be found in infected (contaminated) food or beverages or on hands, toys, or clothing. After the eggs have been swallowed, they crowder in the intestines. When they grow and mature, the female worms travel out of the opening between the buttocks (anus) and lay eggs in the anal area at night. These eggs then contaminate everything they come into contact with, including skin, clothes, towels, and bedding. This continues the cycle of infection. What increases the risk? This condition is likely to develop in children who come in contact with many other people, such asat a daycare or school, and in people who live in long-term care facilities. It can then be passed to family members or other caregivers. What are the signs or symptoms? Symptoms of this condition include: ? Itching at the anus, or the area around the anus, especially at night. ? Trouble sleeping and restlessness. ? Nausea or pain in the abdomen. ? Bedwetting. ? Trouble urinating. ? Vaginal discharge or itching. In some cases, there are no symptoms. In rare cases, allergic reactions or worms traveling to otherparts of the body may cause problems, including pain, additional infection, or inflammation. How is this diagnosed? This condition is diagnosed based on your medical history and a physical exam. Your health care provider may ask you to apply a piece of adhesive tape to your anal area in the morning before using the bathroom. The eggs will stick to the tape. Your health care provider will then look at the tape under a microscope to confirm the diagnosis. How is this treated? This condition may be treated with: ? Anti-parasitic oral medicine to get rid of the pinworms. ? Topical medicines to help with itching, such as petroleum gel. Your health care provider may recommend that everyone in your household and any caregivers also be treated for pinworms. Follow these instructions at home: Medicines ? Take or apply cgyu-gql-qnoxcyr and prescription medicines only as told by your health care provider. ? If you were prescribed an anti-parasitic medicine, take it as told by your health care provider. Donot stop taking the anti-parasitic medicine even if you start to feel better. General instructions ? Wash your hands often with soap and water for at least 20 seconds. If soap and water are not available, use hand tailing machine operator. ? Keep your nails short, and do not bite your nails. ? Change clothing and underwear daily. ? Wash bedding, pajamas, underwear, and towels in hot water after each use until pinworms are gone. ? Do not scratch the skin around the anus. ? Take a shower instead of a bath until the infection is gone. ? Keep all follow-up visits. This is important. How is this prevented? Make sure that all members of your household wash their hands often to prevent the spread of infection. ? Keep nails trimmed, avoid biting them, and do not scratch around the anus. ? Wash clothing and bedding every morning in hot water. ? Vacuum rugs and floors to try to eliminate eggs. ? Avoid oral???anal contact during sex. ? Shower every morning to help remove eggs. ? Maintain sanitary habits as recurrence is common. Where to find more information ? Centers for Disease Control and Prevention: www.cdc.gov Contact a health care provider if: ? You have new symptoms. ? You do not get better with treatment. ? Your symptoms get worse. Summary ? Pinworm infection can occur in children who come in contact with many other people, such as at a daycare or school, and in people who live in long-term care facilities. ? After pinworm eggs are swallowed, they grow in the intestine. The worms travel out of the anus and lay eggs in that area at night. ? The most common symptoms of infection are itching around the anus, difficulty sleeping, and restlessness. ? The best way to control the spread of infection is by washing hands often, keeping nails trimmed, changing clothing and underwear daily, and washing bedding and towels in hot water after each use. This information is not intended to replace advice given to you by your health care provider. Make sure you discuss any questions you have with your health care provider. Document Revised: 02/19/2021 Document Reviewed: 02/19/2021 [employer] Patient Education ?? 2021 [employer] Patient/Staff Cytotechnologist Signature Patient Name:JAG CASSIDY I have received this information and my questions have been answered. Patient/Staff Cytotechnologist Name: Patient/Staff Cytotechnologist Signature: Relationship to Patient: Witness Name/Signature: Date: Electronically Signed on: 04/30/2022 13:15 ESTSigned by:[facility] Patient Care team information Personnel Name: CHRISTIE MULLEN NP Address: Address: [address] [place] [address], [place] [id number] [place]
--- OUTSIDE RECORDS SUMMARY | 2023-12-09 09:06 | XMS_ITS | Encounter Summary ---
Author Organization [facility] [place] [address] Care Team Providers Care Rhinestone Setter Name Role Phone None Primary Care Provider Unavailabl e Reason for Visit * Auth/Cert (Routine) Specialty Diagnoses / Procedures Referred By Contac t Referred To Contact Diagnoses Obstruction of bile duct stent exchange or removal-f/up bile duct injury Procedures PRO ERCP,DIAGNOSTIC ERCP (WRVU 5.85) Bijan Felipe MD [facility] [place] [address] [facility] Referral ID Status Reason Start Date Expiration Date Visits Re quested Visits Authorized [id number] 1 1 Encounter Details Date Type Department Care Team (Late st Contact Info) Description 09/05/2022 10:00 AM EDT - 09/05/2022 11:15 AM EDT [place] [address] [facility] [address] ERCP, W REMOVAL& EXCHANGE STENT, BILIARY/PANCREATIC DUCT (WRVU 8.84) Social History Tobacco Use Types Packs/Day Years Used Date Smoking Tobacco: Never Smokeless Tobacco: Current Tobacco Cessation:Ready to Q uit: Not Asked; Counseling Given: Not Answered Comments:vape pen Alcohol Use Standard Drinks/Week Comments Yes 0 (1 standard drink = 0.6 oz pur e alcohol) social Sex and Gender Information Value Date Recorded Sex Assigned at Not on file Gender Identity Not on file Sexual Orientation Not on file documented as of this encounter Last Filed Vital Signs Vital Sign Reading Time Taken Comments Blood Pressure 110/64 09/05/2022 8:46 AM EDT Pulse 76 09/05/2022 8:46 AM EDT Temperature 36.2 ??C (97.2 ??F) 09/05/2022 8:46 AM ED T Respiratory Rate 16 09/05/2022 8:46 AM EDT Oxygen Saturation 98% 09/05/2022 8:46 AM EDT Inhaled Oxygen Concentration - - Weight - - Height - - Body Mass Index - - documented in this encounter Discharge Instructions * Discharge Instructions* Florence Bradley RN - 09/05/2022 12:07 PM EDT Colonoscopy: What to Expect at Home Your Recovery Your doctor will talk to you about when you will need your next colonoscopy. Your doctor can help you decide how often you need to be checked. This will depend on the results of your test and your risk for colorectal cancer. After the test, you may be bloated or have gas pains. You may need to pass gas. If a biopsy was done or a polyp was removed, you may have streaks of blood in your stool (feces) for a few days. Problems such as heavy rectal bleeding may not occur until several weeks after the test. This isn't common. But it can happen after polyps are removed. This care sheet gives you a general idea about how long it will take for you to recover. But each person recovers at a different pace. Follow the steps below to get better as quickly as possible. How can you care for yourself at home? Activity Rest when you feel tired. You can do your normal activities when it feels okay to do so. Diet Follow your doctor's directions for eating. Unless your doctor has told you not to, drink plenty of fluids. This helps to replace the fluids that were lost during the colon prep. Do not drink alcohol. Medicines Your doctor will tell you if and when you can restart your medicines. He or she will also give you instructions about taking any new medicines. If you take blood thinners, such as warfarin (Coumadin), clopidogrel (Plavix), or aspirin, be sure to talk to your doctor. He or she will tell you if and when to start taking those medicines again. Make sure that you understand exactly what your doctor wants you to do. If polyps were removed or a biopsy was done during the test, your doctor may tell you not to take aspirin or other anti-inflammatory medicines for a few days. These include ibuprofen (Advil, Motrin) and naproxen (Aleve). Other instructions For your safety, do not drive or operate machinery until the medicine wears off and you can think clearly. Your doctor may tell you not to drive or operate machinery until the day after your test. Do not sign legal documents or make major decisions until the medicine wears off and you can think clearly. The anesthesia can make it hard for you to fully understand what you are agreeing to. Additional Information for Sedation Patients For patients who received sedation: You may have received medications before and/or during your procedure which effects your judgement and reaction time. Do not drive, operate machinery, drink alcoholic beverages or make important decisions for 24 hours. Be careful on stairs as you may be unsteady on your feet. You may eat a regular diet as tolerated. Do not smoke if you are alone. IV site: Slight redness or tenderness is normal, you can use a warm compress if you would like. If tenderness and/or redness increase or if foul drainage occurs, please contact your Doctor. Please call [phone] before 8pm Mon-Fri with problems, questions or concerns. If you call after 8pm or on weekends, call the Hospital at [phone] and ask to speak to the Air Traffic Instructor instructional coach and the head insulation board saw operator will contact that person for you. When should you call for help? Call [phone] anytime you think you may need emergency care. For example, call if: You passed out (lost consciousness). You pass maroon or bloody stools. You have trouble breathing. Call your doctor now or seek immediate medical care if: You have pain that does not get better after you take pain medicine. You are sick to your stomach or cannot drink fluids. You have new or worse belly pain. You have blood in your stools. You have a fever. You cannot pass stools or gas. Watch closely for changes in your health, and be sure to contact your doctor if you have any problems. Where can you learn more? [email or web address] View your After Visit Summary and more online at [email or web address] If you would like to provide feedback about your hospital experience, please call the Office of Patient and Family Relations at . If you have received this After Visit Summary in error, please immediately return it in person to the department, or notify the - Privacy Office by calling toll free at between the hours of 8AM and 5PM to arrange for our retrieval of the documents at no cost to you. Content Version: 12.2 ?? 9414-6562 [employer]. Care instructions adapted under license by [employer] [facility]. If you have questions about a medical condition or this instruction, always ask your healthcare professional. [employer] disclaims any warranty or liability for your use of this information. documented in this encounter Medications at Time of Discharge Medication Sig Dispensed Refills Start Date End Date acyclovir (Zovirax) 200 mg capsule Take by mouth as needed. albuteroL 90 mcg/actuation HFA Aerosol Inhaler Inhale 1-2 puffs into the lungs every 4 hours as needed. 03/29/2014 etonogestrel (NEXPLANON) 68 mg Implant by Subdermal route Continuous (Device). EPINEPHrine 0.3 mg/0.3 mL Auto-Injector Inject 0.3 mg into the muscle as needed. inhalational spacing device (VORTEX HOLDING CHAMBER) Spacer by Misc.(Non-Drug; Combo Route) route. As directed. May substitute aerochamber. 2 each 1 02/02/2018 documented as of this encounter H&P Notes * Bijan Felipe MD - 09/05/2022 10:03 AM EDT Gastroenterology and Hepatology Pre-Procedure History and Physical Exam Procedure: ERCP: Indication: F/up bile duct injury for stent removal or exchange. Patient Active Problem List Diagnosis Code ??? Anaphylaxis T78.2XXA ??? Asthma J45.909 ??? 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 Allergy to environmental factors Z91.09 EXAM: HEENT: Airway examined, oropharynx clear Mallampati Score: Per anesthesia LUNGS: Clear to auscultation HEART: Regular rate and rhythm, normal S1, S2 ABDOMEN: Normal bowel sounds, soft, non tender, non distended, A/P Proceed with the planned endoscopic procedure. ASA 2 - Patient with mild systemic disease with no functional limitations Sedation Plan: anesthesia Risks and benefits of the procedure explained to the patient. Consent signed. documented in this encounter Plan of Treatment Scheduled Orders Name Type Priority Associated Diagnoses Orde r Schedule ENDOSCOPY CASE REQUEST: ERCP (WRVU 5.85) Procedures Routine Bile duct stricture Ordered: 09/05/2022 documented as of this encounter Procedures Procedure Name Priority Date/Time Associated Diagnosis Comments XR ERCP Routine 09/05/2022 11:25 AM EDT Ercp, W/Removal Stone, Mono/Pancr Ducts ([id number]) 09/05/2022 10:21 AM EDT Bile duct stricture Ercp Balloon Dilatation Biliary/Pancreatic Duct Or Ampulla Ea Duct ([id number]) 09/05/2022 10:21 AM EDT Bile duct stricture CHOLANGIOGRAM 09/05/2022 10:21 AM EDT Bile duct stricture Ercp Biliary Or Pancreatic Duct Stent Removal & Exchange W/Dil&Wire([id number]) 09/05/2022 10:21 AM EDT Bile duct stricture ERCP Routine 09/05/2022 9:50 AM EDT documented in this encounter Results * XR ERCP (09/05/2022 11:25 AM EDT) Narrative [facility] - 09/05/2022 11:25 AM EDT See PACS for result report. Bijan Felipe MD [facility] [place]RARY [place]D ERABLES [place], [place] * ERCP (09/05/2022 9:50 AM EDT) ERCP [facility] Endoscopy Procedure Date: 09/05/2022 9:50 AM ? Patient Name: Lawanda Mcdaniel ? Date of : 2000 ? Age: 22 ? Order #: [id number] ? Instrument Name: [id number] ? Procedure: ? ERCP Indications: ? Follow-up of bile leak, Stent ? 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 Bijan Felipe MD, Anusha ? Devon Lowry Referring : ?Dayanna Peters MD, Andrade Mendenhall Medicines: ? General Anesthesia, Indomethacin ? 100 mg [place] Complications: ? No immediate complications. Procedure: ? Pre-Anesthesia Assessment: ? - Prior to the procedure, a History ? and Physical was performed, and ? patient medications, allergies and ? sensitivities were reviewed. The ? patient's tolerance of previous ? anesthesia was reviewed. ? - The risks and benefits of the ? procedure and the sedation options ? and risks were discussed with the ? patient. All questions were ? answered and informed consent was ? obtained. ? - ASA Grade Assessment: II - A ? patient with mild systemic disease. ? - General anesthesia under the ? supervision of an anesthesiologist ? was determined to be medically ? necessary for this procedure based ? on complex procedure (ERCP, EUS). ? The procedure, indications, ? benefits, risks and alternatives ? were explained to the patient. ? Specifically discussed were ? potential complications including, ? but not limited to, bleeding, ? perforation, infection, ? pancreatitis, missing a cancer, and ? adverse medication reactions.The ? Duodenoscope was introduced through ? the mouth, and advanced to the ? duodenum where it was used to ? inject contrast into and used to ? inject contrast into the bile duct. ? The patient tolerated the procedure ? well. ? Findings: ? A biliary stent was visible on the lumber checker film. The ? esophagus was successfully intubated under direct ? vision. The scope was advanced to a normal major ? papilla in the descending duodenum without detailed ? examination of the pharynx, larynx and associated ? structures, and upper GI tract. The upper GI tract ? was grossly normal. Two stents were removed from the ? biliary tree using a snare. The bile duct was deeply ? cannulated with the 11.5 mm balloon and guidewire. ? Contrast was injected. I personally interpreted the ? bile duct images. There was brisk flow of contrast ? through the ducts. Image quality was excellent. ? Contrast extended to the hepatic ducts. Opacification ? of the entire biliary tree except for the cystic duct ? and gallbladder was successful. The maximum diameter ? of the ducts was 8 mm. The middle third of the main ? bile duct contained a single localized stenosis 2 mm ? in length with adjacent clip-moderately improved in ? caliber from prior exam. A 0.025 in Visiglide II wire ? was passed into the biliary tree. The biliary tree ? was swept with an 11.5 mm balloon starting at the ? bifurcation. Nothing was found as balloon transiently ? hung up at the stricture. Dilation of the common bile ? duct stricture with an 8 mm balloon dilator was ? successful. Two side by side 10 Fr by 9 cm and 1o Fr ? by 7 cm biliary stents with single external flaps and ? single internal flaps were placed 9 cm and 7 cm into ? the common bile duct across the stricture. Bile ? flowed through the stents. The stents were in good ? position. The pancreatic duct was not accessed. ? Moderate Sedation: ? Not applicable - See Anesthesia documentation Impression: ?- Two stents were removed from the ? biliary tree. ? - A single localized post surgical ? biliary stricture was found in the ? middle third of the main bile ? duct-moderately improved in caliber ? from prior exam. ? - Common bile duct stricture was ? successfully dilated to 8 mm. ? - Two biliary stents were placed ? side by side into the common bile ? duct across the stricture. Recommendation: ?- Observe patient's clinical course. ? - Repeat ERCP in 2 months at which ? point the stents may be able to be ? removed. ? Attending Participation: ? I personally performed the entire procedure. ? Bijan Felipe MD 09/05/2022 11:40:14 AM This report has been signed electronically. Number of Addenda: 0 Note Initiated On: 09/05/2022 9:50 AM PROVATION 09/05/2022 9:50 AM EDT Dayanna Peters MD GENERAL SURGICAL ORD ERABLES PROVATION documented in this encounter Visit Diagnoses Diagnosis Bile duct stricture- Primary Obstruction of bile duct Bile duct stricture Obstruction of bile duct documented in this encounter Administered Medications Inactive Administered Medications - up to 3 most recent administrations Medication Order MAR Action Action Date Dose Rate Site indomethacin (Indocin) suppository 100 mg 100 mg, Rectal, ONCE, 1 dose, On Lashay 09/05/22 at 1115, Endoscopy (Intra-Procedure), Routine Given 09/05/2022 10:50 AM EDT 100 mg prochlorperazine (Compazine) (5 mg/mL) injection 5 mg 5 mg, Intravenous, EVERY 30 MIN PRN, 2 doses, Starting on Lashay 09/05/22 at 1220, Until Lashay 09/05/22 at 1308, Nausea, Vomiting, If multiple antiemetics ordered, use ondansetron first and if ineffective use prochlorperazine or haloperidoL second, PACU Recovery, Routine Given 09/05/2022 1:08 PM EDT 5 mg Left Arm Given 09/05/2022 12:26 PM EDT 5 mg L eft Arm documented in this encounter Active and Recently Administered Medications Times are shown in EDT. Scheduled Medication Order 09/03/2022 09/04/2022 09/05/2022 indomethacin (Indocin) suppository 100 mg (COMPLETED) 100 mg, Rectal, ONCE, 1 dose, On Lashay 09/05/22 at 1115, Endoscopy (Intra-Procedure), Routine 1050 (Given - Provid er: Anusha Lowry RN) Continuous Medication Order 09/03/2022 09/04/2022 09/05/2022 lactated ringers infusion (CANCELED) 100 mL/hr, Intravenous, CONTINUOUS, Starting on Lashay 09/05/22 at 0915, Until Lashay 09/05/22 at 1350, Endoscopy (Day of Procedure) 1020 (New Bag - Prov ider: Benitez Pruett CRNA)1113 (Anesthesia Volume Adjustment - Provider: Benitez Pruett CRNA) PRN Medication Order 09/03/2022 09/04/2022 09/05/2022 prochlorperazine (Compazine) (5 mg/mL) injection 5 mg (COMPLETED) 5 mg, Intravenous, EVERY 30 MIN PRN, 2 doses, Starting on Lashay 09/05/22 at 1220, Until Lashay 09/05/22 at 1308, Nausea, Vomiting, If multiple antiemetics ordered, use ondansetron first and if ineffective use prochlorperazine or haloperidoL second, PACU Recovery, Routine 1226 (Given - Provid er: Maria Leslie, VALDEMAR)1308 (Given - Provider: Maria Leslie RN) documented in this encounter Care Teams Rhinestone Setter Relationship Specialty Start Date End Date None None PCP - General 02/21/22 documented as of this encounter
--- OUTSIDE RECORDS SUMMARY | 2023-12-09 09:06 | XMS_ITS | Encounter Summary ---
Author Organization [facility] [place] [address] Care Team Providers Care Diesel Maintenance Technician Name Role Phone None Primary Care Provider Unavailabl e Reason for Visit * Reason Comments Abdominal Pain Encounter Details Date Type Department Care Team (Late st Contact Info) Description 12/28/2022 1:13 AM EDT - 12/28/2022 3:08 AM EDT Emergency Emergency Services at [address] [id number] Yair Bradford MD [facility] [place] [address] Generalized abdominal pain; Diarrhea, unspecified type; Nausea without vomiting Discharge Disposition: Home Social History Tobacco Use Types Packs/Day Years Used Date Smoking Tobacco: Never Smokeless Tobacco: Current Comments:vape pen Alcohol Use Standard Drinks/Week Comments Yes 0 (1 standard drink = 0.6 oz pur e alcohol) 3 times per year IPV Inpatient Questions Answer Date Recorded Prevent [...] Sign Reading Time Taken Comments Blood Pressure 109/63 12/28/2022 2:52 AM EDT Pulse 82 12/28/2022 2:52 AM EDT Temperature 36.9 ??C (98.4 ??F) 12/28/2022 2:52 AM ED T Respiratory Rate - - Oxygen Saturation 98% 12/28/2022 2:52 AM EDT Inhaled Oxygen Concentration - - Weight 65.8 kg (145 lb) 12/28/2022 1:07 AM EDT Height 160 cm (5' 3) 12/28/2022 1:07 AM EDT Body Mass Index 25.69 12/28/2022 1:07 AM EDT documented in this encounter Discharge Instructions * Attachments The following attachments cannot be sent through Care Everywhere. * Diarrhea (Martiniquais) * Abdominal Pain (Martiniquais) documented in this encounter Medications at Time [...] spacing device ([employer]AMBER) Spacer by [facility].(Non-Drug; Combo Route) route. As directed. May substitute aerochamber. 2 each 1 02/02/2018 metoclopramide (Reglan) 10 mg tablet Take 1 tablet by mouth 4 times daily for 5 days. 20 tablet 12/28/2022 01/02/2023 documented as of this encounter ED Notes * Yair Bradford MD - 12/28/2022 1:34 AM EDT Images from the original note were not included. EMERGENCY SERVICES AT [facility] EMERGENCY DEPARTMENT ENCOUNTER Pt Name: Lawanda Mcdaniel Birthdate 2000 Date of evaluation: 12/28/2022 Provider: Yair Bradford MD PCP: None Note Started: 2:48 AM 12/28/22 CHIEF COMPLAINT Chief Complaint Patient presents with Abdominal Pain HISTORY OF PRESENT ILLNESS: 1 or more Elements Lawanda Mcdaniel is a 22 y.o. female who presents to the emergency department for cramping, nausea, diarrhea. Has had diarrhea all day, brown, watery, no blood in, no fevers or chills, no chest pain, chest tightness, shortness of breath. Patient denies any recent antibiotics in the last 3 months. Does have a history of biliary stricture, did have an ERCP on the sixth, did not have pain after that, today was the first day she had issues with abdominal cramping and diarrhea. After one of the episodes of diarrhea she found some string-like substance near her vaginal region, she is unsure of the origin of the string- like substance, but brought in a box that she is concerned it may be a warm as she has a history of pinworms. Nursing Notes were all reviewed and agreed with or any disagreements were addressed in the HPI. REVIEW OF EXTERNAL NOTE : Admission 12/18/2022 for ERCP with balloon dilatation of the biliary pancreatic duct REVIEW OF SYSTEMS : Positives and Pertinent negatives as per HPI. SURGICAL HISTORY Past Surgical History: Procedure Laterality Date PRO ERCP BALLOON DILATATION BILIARY/PANCREATIC DUCT OR AMPULLA EA DUCT 09/05/2022 ERCP, W BALLOON DILATION OF BILIARY/PANCREATIC DUCT (WRVU 6.9) performed by Bijan Felipe MD [facility] ENDOSCOPY PRO ERCP BALLOON DILATATION BILIARY/PANCREATIC DUCT OR AMPULLA EA DUCT N/A 12/18/2022 ERCP, W BALLOON DILATION OF BILIARY/PANCREATIC DUCT (WRVU 6.9) performed by Bijan Felipe MD [facility] ENDOSCOPY PRO ERCP BILIARY OR PANCREATIC DUCT STENT REMOVAL & EXCHANGE W/DIL&WIRE 02/21/2022 ERCP, W REMOVAL& EXCHANGE STENT, BILIARY/PANCREATIC DUCT performed by Bijan Felipe MD at [facility] ENDOSCOPY PRO ERCP BILIARY OR PANCREATIC DUCT STENT REMOVAL & EXCHANGE W/DIL&WIRE N/A 06/10/2022 ERCP, W REMOVAL& EXCHANGE STENT, BILIARY/PANCREATIC DUCT performed by Bijan Felipe MD at [facility] ENDOSCOPY PRO ERCP BILIARY OR PANCREATIC DUCT STENT REMOVAL & EXCHANGE W/DIL&WIRE N/A 09/05/2022 ERCP, W REMOVAL& EXCHANGE STENT, BILIARY/PANCREATIC DUCT (WRVU 8.84) performed by Bijan Felipe MD at [facility] ENDOSCOPY PRO ERCP, SPHINCTEROTOMY N/A 02/21/2022 ERCP W/SPHINCTEROTOMY/PAPILLOTOMY performed by Bijan Felipe MD at [facility] ENDOSCOPY PRO ERCP, W/REMOVAL STONE, NICKY/PANCR DUCTS 02/21/2022 ERCP W/REMOVAL CALCULI/DEBRIS FROM BILARY/PANCREATIC DUCT(S) performed by Bijan Felipe MD at [facility] ENDOSCOPY PRO ERCP, W/REMOVAL STONE, NICKY/PANCR DUCTS 09/05/2022 ERCP W/REMOVAL CALCULI/DEBRIS FROM BILARY/PANCREATIC DUCT(S) (WRVU 6.63) performed by Bijan Felipe MD at [facility] ENDOSCOPY CURRENTMEDICATIONS Previous Medications ACYCLOVIR (ZOVIRAX) 200 MG CAPSULE Take by mouth as needed. ALBUTEROL 90 MCG/ACTUATION HFA AEROSOL INHALER Inhale 1-2 puffs into the lungs every 4 hours as needed. EPINEPHRINE 0.3 MG/0.3 ML AUTO-INJECTOR Inject 0.3 mg into the muscle as needed. ETONOGESTREL (NEXPLANON) 68 MG IMPLANT by Subdermal route Continuous (Device). INHALATIONAL SPACING DEVICE ([employer] CHAMBER) SPACER by Misc.(Non-Drug; Combo Route) route. As directed. May substitute aerochamber. ALLERGIES Ondansetron and Unknown [unclassified drug] FAMILYHISTORY Family History Problem Relation Age of Onset Allergic Rhinitis Sister Asthma Maternal Aunt Asthma Maternal Uncle Food Allergy Cousin SOCIAL HISTORY Social History Tobacco Use Smoking status: Never Smokeless tobacco: Current Tobacco comments: vape pen Substance Use Topics Alcohol use: Yes Alcohol/week: 0.0 - 5.0 standard drinks Comment: 3 times per year Drug use: Yes Types: Marijuana SCREENINGS Patient Vitals for the past 24 hrs: Temp Pulse BP SpO2 O2 Device 12/28/22 0107 36.9 ??C (98.4 ??F) 83 126/74 100 % RA PHYSICAL EXAM Physical Exam Vitals and nursing note reviewed. Constitutional: Appearance: Normal appearance. She is normal weight. HENT: Head: Normocephalic and atraumatic. Right Ear: External ear normal. Left Ear: External ear normal. Nose: Nose normal. Mouth/Throat: Mouth: Mucous membranes are moist. Eyes: Extraocular Movements: Extraocular movements intact. Conjunctiva/sclera: Conjunctivae normal. Pupils: Pupils are equal, round, and reactive to light. Cardiovascular: Rate and Rhythm: Normal rate and regular rhythm. Pulses: Normal pulses. Heart sounds: Normal heart sounds. Pulmonary: Effort: Pulmonary effort is normal. Breath sounds: Normal breath sounds. Abdominal: General: Abdomen is flat. Bowel sounds are normal. There is no distension. Palpations: Abdomen is soft. There is no mass. Tenderness: There is no abdominal tenderness. Musculoskeletal: General: Normal range of motion. Cervical back: Normal range of motion and neck supple. Skin: General: Skin is warm and dry. Neurological: General: No focal deficit present. Mental Status: She is alert and oriented to person, place, and time. Cranial Nerves: No cranial nerve deficit. DIAGNOSTIC RESULTS LABS: Labs Reviewed CBC (WITH DIFF) BASIC METABOLIC PANEL (NON-FASTING) LIPASE HEPATIC FUNCTION PANEL HEMOGRAM DIFFERENTIAL, AUTOMATED As interpreted by me, the above displayed labs are abnormal. All other labs obtained during this visit were within normal range or not returned as of this dictation. RADIOLOGY: Non-plain film images such as CT, Ultrasound and MRI are read by the radiologist. Plain radiographic images are visualized and preliminarily interpreted by the ED Provider with the findings documented in the ED Course. Interpretation per the Radiologist below, if available at the time of this note: No orders to display PROCEDURES Unless otherwise noted below, none CRITICAL CARE DOCUMENTATION: Is there a high potential of sudden, clinically significant, or life threatening deterioration? No Are there life and/or organ supporting interventions that require frequent personal assessment and manipulation or support to treat/prevent vital organ failure/deterioration? no I personally performed 0 minutes of aggregate critical care time exclusive of procedures and teaching during this emergency department visit. This includes time spent during direct patient evaluationand reassessment, interpreting diagnostic tests, directing life and/or organ supporting interventions, and documentation. PAST MEDICAL HISTORY/Chronic Conditions Affecting Care has no past medical history on file. EMERGENCY DEPARTMENT COURSE Vitals: Vitals: 12/28/22 0107 BP: 126/74 Pulse: 83 Temp: 36.9 ??C (98.4 ??F) SpO2: 100% Weight: 65.8 kg (145 lb) Height: 160 cm (5' 3) Patient was given the following medications: Medications hyoscyamine SL (Levsin SL) tablet 0.125 mg (has no administration in time range) metoclopramide (Reglan) tablet 10 mg (10 mg Oral Given 12/28/22 0137) dicyclomine (Bentyl) capsule 20 mg (20 mg Oral Given 12/28/22 0137) Medical Decision Making/Differential Diagnosis: CC/HPI Summary, Social Determinants of health, Records Reviewed, DDx, testing done/not done, ED Course, Reassessment, disposition considerations/shared decision making with patient, consults, disposition: ED Course as of 12/28/22 0248 Sat Dec 28, 2022 0137 I examined the patient's string-like substance that she brought in in a soap box, on evaluation it most closely appears to resemble fibrous vegetable like material, it does not have the appearance of a tapeworm or a pinworm. She denies ever seeing it moving 0202 Eosinophils %: 2.2 No eosinophilia 0218 Performed external genitalia exam with nurse Toya as supervising architect. Saw the string-like substance, which again appeared to be flecks of vegetable fibers, similar in appearance to the material she brought in the box, they were not moving, did not appear to be wormlike, more stringy vegetable like fibers. There was no noted strangulate substance coming from the vaginal region it was only located in the rectum and was external, was not connecting internally the crampiness is somewhat improved, will continue to monitor, her nausea has improved with the Reglan. 0246 BMP, lipase and LFTs are reassuring given the setting of recent ERCP. Will discharge, patient is agreeable plan of discharge, she was written for Reglan to go home with, she is agreeable with this plan. 0246 22-year-old female presenting to the emergency room for cramping-like abdominal pain, diarrhea, concern for possible worms in her stool or vaginal region as she found some string-like substance on her perennial region. On external exam appear to be coming from the rectal origin, appear to be fibrous like substance, likely vegetable fibers, did not have wormlike appearance, or not moving, andeosinophils were low, suspicion for parasitic infection or pinworms was low given physical exam andlaboratory work. She had recent ERCP, given the abdominal cramping and diarrhea, considered pancreatitis, cholecystitis, liver dysfunction, LFTs were normal, lipase was normal, no significant dehydration on BMP. She was given Bentyl and Reglan with some improvement of her symptoms. She was discharged home with prescription for Reglan, instructed to return to the emergency department if she were to worsen, return precautions discussed, she is agreeable with this plan. Medical Decision Making Problems Addressed: Diarrhea, unspecified type: acute illness or injury Generalized abdominal pain: acute illness or injury Nausea without vomiting: acute illness or injury Amount and/or Complexity of Data Reviewed External Data Reviewed: notes. Labs: ordered. Decision-making details documented in ED Course. CONSULTS: (Discussion as noted in ED course) None I am the Employee Representative of Record. FINAL IMPRESSION 1. Generalized abdominal pain 2. Diarrhea, unspecified type 3. Nausea without vomiting DISPOSITION/PLAN DISPOSITION Discharge 12/28/2022 02:46:40 AM If Discharged: PATIENT REFERRED TO: Emergency Services at [address] [facility] [phone] Go to If symptoms worsen DISCHARGE MEDICATIONS: New Prescriptions METOCLOPRAMIDE (REGLAN) 10 MG TABLET Take 1 tablet by mouth 4 times daily for 5 days. DISCONTINUED MEDICATIONS: Discontinued Medications BUPROPION (WELLBUTRIN) 100 MG TABLET Take 100 mg by mouth 2 times daily. PROCHLORPERAZINE (COMPAZINE) 5 MG TABLET Take 1 tablet by mouth every 6 hours as needed for Nausea. SERTRALINE (ZOLOFT) 50 MG TABLET Take 50 mg by mouth daily. (Please note that portions of this note were completed with a voice recognition program. Efforts were made to edit the dictations but occasionally words are mis-transcribed.) Yair Bradford MD (electronically signed) Yair Bradford MD 12/28/22 0248 documented in this encounter Miscellaneous Notes * ED Triage - Natalia Lopez RN - 12/28/2022 1:09 AM EDT HPI (Adult) Stated Reason for Visit: pt sts she took off something from her genitals that appeared to be a likea worm this evening History Obtained From: patient Pt sts hx of worms in past and pain is similar to that documented in this encounter Plan of Treatment Not on file documented as of this encounter Procedures Procedure Name Priority Date/Time Associated Diagnosis Comments HEMOGRAM STAT 12/28/2022 1:40 AM EDT DIFFERENTIAL, AUTOMATED STAT 12/28/2022 1:40 AM EDT CBC (WITH DIFF) STAT 12/28/2022 1:40 AM EDT LIPASE STAT 12/28/2022 1:40 AM EDT HEPATIC FUNCTION PANEL STAT 12/28/2022 1:40 AM EDT BASIC METABOLIC PANEL STAT 12/28/2022 1:40 AM EDT documented in this encounter Results * Differential, Automated (12/28/2022 1:40 AM EDT) Neutrophil % 65.3 % [facility] Neutrophil Absolute 5.28 1.70 - 6.10 x10(3)/[facility] Lymph % 24.8 % [facility] Lymphocytes Abs 2.0 0.9 - 3.2 x10(3)/[facility] Monocyte % 7.2 % [facility] Monocyte Abs 0.6 0.3 - 0.9 x10(3)/[facility] Eos % 2.2 % [facility] Eosinophils Abs 0.2 0.0 - 0.4 x10(3)/[facility] Basophil % 0.4 % [facility] Baso Absolute 0.0 0.0 - 0.1 x10(3)/[facility] Immature Gran % 0.10 % [facility] Comment: Immature granulocytes(IG's)percentage and absolute count will include metamyelocytes, myelocytes, and promyelocytes. Blood smears from CBCs yielding IG's will be scanned manually for concordance. If this scan disagrees with the automated IG or if promyelocytes are noted, a manual differential will be performed. Immature Gran Absolute 0.01 0.00 - 0.04 x10(3)/[facility] Blood 12/28/2022 1:40 AM EDT 12/28/2022 1:58 AM EDT Narrative Resulting Agency Comment Spec In Lab Yair Bradford MD HEMATOLOGY ORDERABLE S [facility] [address] [place] [address] * Hemogram (12/28/2022 1:40 AM EDT) Pathologist [facility] White Blood Cell 8.1 4.0 - 9.5 x10(3)/[facility] Red Blood Cell 4.39 4.00 - 5.21 x10(6)/[facility] Hemoglobin 13.4 11.7 - 15.5 g/dL [facility] Hematocrit 39.3 35.7 - 45.8 % [facility] Mean Cell Volume 89.5 82.6 - 94.4 fL [facility] Mean Cell Hemoglobin 30.5 27.1 - 32.0 pg [facility] Mean Cell Hemoglobin Concentration 34.1 31.7 - 35.0 g/dL [facility] Platelet 205 145 - 357 x10(3)/[facility] RDW Standard Deviation 39.8 37.0 - 46.0 fL [facility] RDW coefficient of variation 12.1 11.5 - 14.1 % [facility] Mean Platelet Volume 9.6 7.6 - 12.9 fL [facility] Blood 12/28/2022 1:40 AM EDT 12/28/2022 1:58 AM EDT Narrative Resulting Agency Comment Spec In Lab Yair Bradford MD HEMATOLOGY ORDERABLE S Performing Organization Address [facility] Co de Phone Number [facility] [address] [place] [address] * Hepatic Function Panel (12/28/2022 1:40 AM EDT) Pathologist [facility] Protein, Total 6.4 6.1 - 8.0 g/dL [facility] Albumin 4.1 3.2 - 5.2 g/dL [facility] Aspartate Aminotransferase 11 0 - 30 unit/L [facility] Alanine Aminotransferase 9 0 - 30 unit/L [facility] Alkaline Phosphatase 65 35 - 105 unit/L [facility] Bilirubin, Total 0.6 0.2 - 1.3 mg/dL [facility] Bilirubin, Direct <0.2 0.0 - 0.3 mg/dL [facility] Blood 12/28/2022 1:40 AM EDT 12/28/2022 1:58 AM EDT Narrative Resulting Agency Comment Spec In Lab Yair Bradford MD CHEMISTRY ORDERABLES Performing Organization Address [facility] Co de Phone Number [facility] [address] [place] [address] * Lipase (12/28/2022 1:40 AM EDT) Lipase 26 0 - 60 unit/L [facility] Blood 12/28/2022 1:40 AM EDT 12/28/2022 1:58 AM EDT Narrative Resulting Agency Comment Spec In Lab Yair Bradford MD CHEMISTRY ORDERABLES Performing Organization Address [facility] Phone Number [facility] [address] [place] [address] * Basic Metabolic Panel (non-fasting) (12/28/2022 1:40 AM EDT) Glucose 108 65 - 199 mg/dL [facility] Comment:Diabetes: >=200 mg/d L plus symptoms Blood Urea Nitrogen 14 8 - 18 mg/dL [facility] Creatinine 0.76 0.70 - 1.20 mg/dL [facility] Sodium 138 135 - 145 mmol/L [facility] Potassium 3.6 3.5 - 5.0 mmol/L [facility] Comment: Please note: ??Patients with WBC >100,000 may have falsely elevated Potassium levels. ??For accurate Potassium quantification in these patients send serum separator tube (gold top) for subsequent determinations. ??Contact the Clinical Chemistry Laboratory if there are any questions. Chloride 105 98 - 107 mmol/L [facility] Carbon Dioxide 22 22 - 31 mmol/L [facility] Anion Gap 11 5 - 15 mmol/L [facility] Calcium 9.3 8.5 - 10.5 mg/dL [facility] Est Glomerular Filtration Rate 114 >=60 mL/min/1.7 3 m?? [facility] Comment: This patient's estimated GFR was calculated using the 2020 CKD-EPI equation. The estimated GFR can vary from the measured GFR by up to 30% in the absence of rapidly changing kidney function. Assessment of the estimated GFR is not appropriate when creatinine concentrations are rapidly changing. For clinical situations in which a more precise estimate of GFR is necessary, consider alternative methods of GFR estimation such as a 24-hour urine creatinine clearance. Assignment of CKD stage 1-5 for patients with an eGFR near the transition point between stages may be based on clinical assessment of muscle mass and symptoms in addition to eGFR. Blood 12/28/2022 1:40 AM EDT 12/28/2022 1:58 AM EDT Narrative Resulting Agency Comment Spec In Lab Yair Bradford MD CHEMISTRY ORDERABLES [facility] [address] [place] [address] documented in this encounter Visit Diagnoses Diagnosis Generalized abdominal pain Abdominal pain, generalized Diarrhea, unspecified type Nausea without vomiting documented in this encounter Administered Medications Inactive Administered Medications - up to 3 most recent administrations Medication Order MAR Action Action Date Dose Rate Site dicyclomine (Bentyl) capsule 20 mg 20 mg, Oral, ONCE, 1 dose, On 12/28/22 at 0135, Routine Given 12/28/2022 1:37 AM EDT 20 mg metoclopramide (Reglan) tablet 10 mg 10 mg, Oral, ONCE, 1 dose, On 12/28/22 at 0135, Routine Given 12/28/2022 1:37 AM EDT 10 mg documented in this encounter Active and Recently Administered Medications Times are shown in EDT. Scheduled Medication Order 12/26/2022 12/27/2022 12/28/2022 dicyclomine (Bentyl) capsule 20 mg (COMPLETED) 20 mg, Oral, ONCE, 1 dose, On 12/28/22 at 0135, Routine 0137 (Given - Provid er: Natalia Lopez RN) hyoscyamine SL (Levsin SL) tablet 0.125 mg 0.125 mg, Sublingual, ONCE, 1 dose, On 12/28/22 at 0222, Routine 0222 (Not Given - Pr ovider: Natalia Lopez RN - Reason: Patient/family refused) metoclopramide (Reglan) tablet 10 mg (COMPLETED) 10 mg, Oral, ONCE, 1 dose, On 12/28/22 at 0135, Routine 0137 (Given - Provid er: Natalia Lopez, RN) documented in this encounter Care Teams Diesel Maintenance Technician Relationship Specialty Start Date End Date None None PCP - General 02/21/22 documented as of this encounter
--- OUTSIDE RECORDS SUMMARY | 2023-12-09 09:06 | XMS_ITS | Encounter Summary ---
Author Organization [facility] [place] [address] Care Team Providers Care Track Repairer Name Role Phone None Primary Care Provider Unavailabl e Reason for Visit * Auth/Cert (Routine) Specialty Diagnoses / Procedures Referred By Contac t Referred To Contact Diagnoses Bile duct stricture bile duct stricture-stent removal or exchange Procedures PRO ERCP,DIAGNOSTIC PRO ANESTH, UGI ENDOSCOPY ERCP ERCP (WRVU 5.85) Bijan Felipe MD [facility] [place] [address] [facility] Referral ID Status Reason Start Date Expiration Date Visits Re quested Visits Authorized [id number] 1 1 Encounter Details Date Type Department Care Team (Latest Contact Info) Description 12/18/2022 12:57 PM EDT - 12/18/2022 4:58 PM EDT Hospital Encounter [place] [address] Bijan Felipe MD [facility] [place] [address] [place] [address] Biliary stricture (Primary Dx) Discharge Disposition: Home Social History Tobacco Use Types Packs/Day Years Used Date Smoking Tobacco: Never Smokeless Tobacco: Current Tobacco Cessation:Ready to Q uit: Not Asked; Counseling Given: Not Answered Comments:vape pen Alcohol Use Standard Drinks/Week Comments Yes 0 (1 standard drink = 0.6 oz pur e alcohol) 3 times per year Sex and Gender Information Value Date Recorded Sex Assigned at Not on file Gender Identity Not on file Sexual Orientation Not on file documented as of this encounter Last Filed Vital Signs Vital Sign Reading Time Taken Comments Blood Pressure 97/58 12/18/2022 4:30 PM EDT Pulse - - Temperature 36.7 ??C (98.1 ??F) 12/18/2022 2:12 PM ED T Respiratory Rate 19 12/18/2022 4:30 PM EDT Oxygen Saturation 98% 12/18/2022 4:30 PM EDT Inhaled Oxygen Concentration - - Weight 65.8 kg (145 lb) 12/18/2022 2:12 PM EDT Height 160 cm (5' 3) 12/18/2022 2:12 PM EDT Body Mass Index 25.69 12/18/2022 2:12 PM EDT documented in this encounter Discharge Instructions * Discharge Instructions* Rosy Hernandes RN - 12/18/2022 4:08 PM EDT Endoscopic Retrograde Cholangiopancreatogram (ERCP): What to Expect at Home Your Recovery After you have an endoscopic retrograde cholangiopancreatogram (ERCP), you will be able to go home after your doctor or a nurse checks to make sure you are not having any problems. If you stay in thehospital overnight, you may go home the next day. You may have a sore throat for a day or two after the procedure. This care sheet gives you a general [...] you not to, drink plenty of fluids. Do not drink alcohol. Medicines Your doctor [...] your doctor wants you to do. If a sphincterotomy was done during the test, your doctor may tell you not to take aspirin or otheranti-inflammatory medicines for a few days. These include ibuprofen (Advil, Motrin) and naproxen (Aleve). If you have a sore throat the day after the procedure, use an cexf-uvh-xhxbdzy spray to numb your throat. Sucking on throat lozenges and gargling with warm salt water may also help relieve your symptoms. Other instructions For your safety, do not [...] occurs, please contact your Doctor. Please call [phone] before 8pm Mon-Fri with problems, questions or concerns. If you call after 8pm or on weekends, call the Hospital at [phone] and ask to speak to the Publications Inspector rehab/pre vocational counselor and the cell room operator will contact that person for you. When should you call for help? Call [phone] anytime you think you may need emergency [...] contact your doctor if you have any problems, like Where can you learn more? [facility] View your After Visit Summary and more online at [email or web address] If you would like to provide feedback about your hospital experience, please call the Office of Patient and Family Relations at . If you have received this After Visit Summary in error, please immediately return it in person to the department, or notify the [facility] Privacy Office by calling toll free at between the hours of 8AM and 5PM to arrange for our retrieval of the documents at no cost to you. Content Version: 12.2 ?? 4672-1400 [employer]. Care instructions adapted under license by [facility]. If you have questions about a medical condition or this instruction, always ask your healthcare professional. [employer] disclaims any warranty or liability for your [...] spacing device ([employer]ING CHAMBER) Spacer by Mis.(Non-Drug; Combo Route) route. As directed. May substitute aerochamber. 2 each 1 02/02/2018 documented as of this encounter H&P Notes * Andrew Tavares MD - 12/18/2022 2:42 PM EDT Gastroenterology and Hepatology Pre-Procedure History and Physical Exam Procedure: ERCP Indication: CBD injury during CCY, now w/ residual CBD stricture, undergoing serial dilatation/stenting. Last ERCP 09/05/22 w/ dilatation to 8mm and tandem 10fr stent placement. 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 ASA 3 - Patient with moderate systemic disease with functional limitations Sedation Plan: anesthesia Risks and benefits of the procedure explained to the patient. Consent form signed and included in the patient's chart. Andrew Tavares MD Advanced Endoscopy Fellow Gastroenterology & Hepatology documented in this encounter Plan of Treatment Not on file documented as of this encounter Procedures Procedure Name Priority Date/Time Associated Diagnosis Comments XR ERCP Routine 12/18/2022 3:28 PM EDT CHOLANGIOGRAM 12/18/2022 2:47 PM EDT Bile duct stricture Ercp Balloon Dilatation Biliary/Pancreatic Duct Or Ampulla Ea Duct ([id number]) 12/18/2022 2:47 PM EDT Bile duct stricture ERCP Routine 12/18/2022 2:40 PM EDT documented in this encounter Results * XR ERCP (12/18/2022 3:28 PM EDT) Narrative RAMIREZ - 12/18/2022 3:28 PM EDT See PACS for result report. Bijan Felipe MD IMG FILM LIBRARY ORD ERABLES RAMIREZ [place] * ERCP (12/18/2022 2:40 PM EDT) ERCP [facility] Endoscopy Procedure Date: 12/18/2022 2:40 PM ? Patient Name: Lawanda Mcdaniel ? Date of : 2000 ? Age: 22 ? Order #: [id number] ? Instrument Name: [id number] ? Procedure: ? ERCP Indications: ? 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 iatrogenic biliary injury during ? cholecystectomy Providers: ? Bijan Felipe MD, Andrew Damon ? Halle Tavares James ? Jennifer Pabon MD: ?Dayanna Peters MD, Andrade Mendenhall Medicines: ? Propofol per Anesthesia Complications: ? No immediate complications. Procedure: ? [...] informed consent was ? obtained. ? - Patient identification and ? proposed procedure were verified ? prior to the procedure by the ? physician, the nurse, the ? revising clerk and the audio video technician. The ? procedure was verified in the ? pre-procedure area in the endoscopy ? suite. ? - Pre-procedure physical ? examination revealed no ? contraindications to sedation. ? - ASA Grade Assessment: III - A ? patient with severe systemic ? disease. ? - After reviewing the risks and ? benefits, the patient was deemed in ? satisfactory condition to undergo ? the procedure. ? - Using IV propofol under the ? supervision of a GIMP TACKER was ? determined to be medically ? necessary for this procedure based ? on severe comorbidity (greater than ? ASA Grade II) and complex procedure ? (ERCP, EUS). ? The procedure, indications, ? [...] contrast into the bile duct. ? The ERCP was accomplished without ? difficulty. The patient tolerated ? the procedure well. ? Findings: ? A certified athletic trainer film of the abdomen was obtained. Surgical ? clips, consistent with a previous cholecystectomy, ? were seen in the area of the right upper quadrant of ? the abdomen. The previously placed plastic stents ? were not seen on certified athletic trainer film. The esophagus was ? successfully intubated under direct vision. The scope ? was advanced to a normal major papilla in the ? descending duodenum without detailed examination of ? the pharynx, larynx and associated structures, and ? upper GI tract. The upper GI tract was grossly ? normal. The previously placed plastic stents were no ? longer in-situ. The bile duct was deeply cannulated ? with the 8.5 mm balloon and guidewire. Contrast was ? injected. I personally interpreted the bile duct ? images. There was brisk flow of contrast through the ? ducts. Image quality was excellent. Contrast extended ? to the left and right hepatic ducts. There was a mild ? focal stenosis 3 mm in length adjacent to surgical ? clips with similar bile duct caliber above and below ? the stenosis. The common bile duct was swept using ? the 11.5 mm balloon with mild resistance to passage ? in an area of localized stenosis. The stenosis was ? successfully dilated with an 8 mm balloon (to a ? maximum balloon size of 8 mm) dilator. Cholangiogram ? post-dilatation revealed no evidence of extravasation ? and improvement in caliber of the mild stenosis so ? stent placement was deferred. The pancreatic duct was ? not accessed. ? Moderate Sedation: ? Not applicable - See Anesthesia documentation Impression: ?- Prior plastic biliary stents had ? spontaneously migrated. ? - A single localized mild biliary ? stenosis was found in the mild ? common bile duct as seen ? previously. Balloon dilated to 8 mm ? with improvement. ? - Given the previous stents had ? spontaneously migrated and the ? stenosis is mild and improved from ? prior exams, stent replacement was ? deferred. Recommendation: ?- Observe patient's clinical course. ? - F/up in clinic with repeat LFTs ? in 6-8 weeks or sooner if jaundice ? or fevers develop. ? - Repeat ERCP for dilatation and/or ? stenting prn if LFTs elevate oo ? other signs of recurrent ? obstruction. ? - The attending physician listed ? above was present for the entire ? procedure. ? Attending Participation: ? I was present and participated during the entire ? procedure, including non-mistry portions. ? Bijan Felipe MD 12/18/2022 4:38:05 PM This report has been signed electronically. Number of Addenda: 0 Note Initiated On: 12/18/2022 2:40 PM PROVATION 12/18/2022 2:40 PM EDT Dayanna Peters MD GENERAL SURGICAL ORD ERABLES PROVATION documented in this encounter Visit Diagnoses Diagnosis Biliary stricture- Primary Obstruction of bile duct documented in this encounter Administered Medications Inactive Administered Medications - up to 3 most recent administrations Medication Order MAR Action Action Date Dose Rate Site lactated ringers infusion 100 mL/hr, Intravenous, CONTINUOUS, Starting on Fri12/18/22 at 1430, Until Fri12/18/22 at 1634, Endoscopy (Day of Procedure) New Bag 12/18/2022 2:29 PM EDT 100 mL/hr 100 mL/hr documented in this encounter Active and Recently Administered Medications Times are shown in EDT. Continuous Medication Order 12/16/2022 12/17/2022 12/18/2022 lactated ringers infusion (CANCELED) 100 mL/hr, Intravenous, CONTINUOUS, Starting on Fri12/18/22 at 1430, Until Fri12/18/22 at 1634, Endoscopy (Day of Procedure) 1429 (New Bag - Prov ider: Florence Bradley RN) documented in this encounter Care Teams Track Repairer Relationship Specialty Start Date End Date None None PCP - General 02/21/22 documented as of this encounter
--- OUTSIDE RECORDS SUMMARY | 2023-12-09 09:06 | XMS_ITS | Encounter Summary ---
Author Organization [facility] Address [facility] [place] [address] Care Team Providers Care Freelance Designer Name Role Phone None Primary Care Provider Unavailabl e Encounter Details Date Type Department Care Team (Late st Contact Info) Description 11/24/2022 Telephone [place] [address] Aarti Carter MD [facility] [place] [address] Social History Tobacco Use Types Packs/Day Years [...] encounter Miscellaneous Notes * Telephone Encounter - Aarti Carter MD - 11/24/2022 12:36 PM EDT Brief Telephone Note: 22F with bile duct injury during CCY now s/p ERCP, most recently 09/05 during which time 2 stents removed from biliary tree, single post-surgical biliary stricture seen in CBD and dilated to 8mm, and placement of 2 biliary stents into the CBD who called today to schedule her f/u ERCP, that appears to have been due in October. I told her I do not schedule procedures over the weekend, but will reach out to our scheduling team to take care of this during the week. She expressed understanding. She has a new cell phone number that should be contacted for appointments: [phone] Aarti Carter MD PGY-4, Gastroenterology Fellow documented in this encounter Plan of Treatment Not on file documented as of this encounter Visit Diagnoses Not on filedocumented in this encounter Care Teams Freelance Designer Relationship Specialty Start Date End Date None None PCP - General 02/21/22 documented as of this encounter
--- OUTSIDE RECORDS SUMMARY | 2023-12-09 09:06 | XMS_ITS | Encounter Summary ---
[place] [address] Care Team Providers Care Compliance Consultant Name Role Phone None Primary Care Provider Unavailabl e Reason for Visit * Auth/Cert (Routine) Specialty Diagnoses / Procedures Referred By Contac t Referred To Contact Diagnoses Obstruction of bile duct stent exchange or removal-f/up bile duct injury Procedures PRO ERCP,DIAGNOSTIC ERCP (WRVU 5.85) Bijan Felipe MD [facility] [place] [address] [facility] Referral ID Status Reason Start Date Expiration Date Visits Re quested Visits Authorized [id number] 1 1 Encounter Details Date Type Department Care Team (Late st Contact Info) Description 09/05/2022 10:18 AM EDT Anesthesia [place] [address] Darrell Hernández MD [facility] [place] [address] Anesthesia Record Procedure Summary Procedure Name Responsible Anesthesiologist Anesthesia Start Time Anesthesia Stop Time ERCP, W REMOVAL& EXCHANGE STENT, BILIARY/PANCREATIC DUCT (WRVU 8.84) (Trunk) Darrell Hernández MD 09/05/22 1018 09/05/22 1146 Events Date Time Event Comment 09/05/2022 0853 1018 Start 1020 AN Verify 1021 An Start Data 1025 An Induction 1027 An Intubation 1028 Anesthesia Ready 1125 Extubation/LMA Out 1138 an stop data 1146 Recovery or ICU Handoff Martha ent care was transferred to the destination unit staff after review of the patient's medical history, current anesthetic/surgical status and plan, according to the Provider Handoff Checklist. 1146 Stop Meds Name Total Midazolam 2 mg IV Lidocaine 40 mg Propofol 200 mg Propofol INF 640.32 mg Dexmedetomidine 8 mcg PHENYLephrine 40 mcg Dexamethasone 4 mg Succinylcholine 100 mg lactated ringers infusion 700 mL * Agents Name O2 Air N2O Sevoflurane (et) * Blood No blood administrations on file. Lines, Drains, and Airways Type Details Placement Removal (RETIRED) Peripheral IV Line - Single Lumen 09/05/22; 09; median vein (underside of arm), left; stcc-hjf-ynxxra catheter system; 22 gauge; Marisol Cruz RN; distraction; 2; removed per policy/procedure; 09/05/22; 1338 09/05/22 0904 by Anusha Cruz RN 09/05/22 1338 by Maria Leslie RN ETT Mask Ventilation: Ea sy (1); ETT Type: Cuffed, Oral; ETT Size: 7 mm; Wooten Blade: 2; Notes: Asleep, Pre-O2, Stylette; Attempts: 1; Laryngoscopy Grade: 1; ETT Placement Verified By: Capnometry, Visual; Secured at Teeth: 21 cm; Inserted by: Seble; Removal Date: 09/05/22; Removal Time: 1125 09/05/22 1032 by Benitez Pruett CRNA 09/05/22 1125 by Benitez Pruett SALSA DANCE INSTRUCTOR documented in this encounter Social History Tobacco Use Types Packs/Day Years Used Date Smoking Tobacco: Never Smokeless Tobacco: Current Comments:vape pen Alcohol Use Standard Drinks/Week Comments Yes 0 (1 standard drink = 0.6 oz pur e alcohol) social Sex and Gender Information Value Date Recorded Sex Assigned at Not on file Gender Identity Not on file Sexual Orientation Not on file documented as of this encounter OR Notes * Anesthesia Postprocedure Evaluation - Darrell Hernández MD - 09/05/2022 12:06 PM EDT Department of Anesthesiology Post-procedure Note Patient: Lawanda Mcdaniel Procedure Summary Date: 09/05/22 Room / Location: [facility] ENDO 2 / [facility] Anesthesia Start: 1018 Anesthesia Stop: 1146 Procedures: ERCP, W REMOVAL& EXCHANGE STENT, BILIARY/PANCREATIC DUCT (WRVU 8.84) (Trunk) CHOLANGIOGRAM (Trunk) ERCP, W BALLOON DILATION OF BILIARY/PANCREATIC DUCT (WRVU 6.9) (Trunk) ERCP W/REMOVAL CALCULI/DEBRIS FROM BILARY/PANCREATIC DUCT(S) (WRVU 6.63) (Trunk) Diagnosis: Bile duct stricture (stent exchange or removal-f/up bile duct injury) Surgeons: Bijan Felipe MD Responsible Provider: Darrell Hernández MD Anesthesia Type: general ASA Status: 2 All Anesthesia Providers: Anesthesiologist: Darrell Hernández MD SALSA DANCE INSTRUCTOR: Benitez Pruett CRNA Vitals Value Taken Time BP 120/78 09/05/22 1202 Temp Pulse Resp SpO2 100 % 09/05/22 1205 Pain Level 0 09/05/22 1150 Vitals shown include unvalidated device data. Patient Location: PACU/[facility] Level of Consciousness: Conscious but Sleepy Pain Management: Satisfactory Analgesia PONV: None Cardiovascular Status: At Baseline Respiratory Status: Supplemental O2 (NC or FM) Postoperative Fluid Status: Intravascular EUvolemia Possible Anesthetic Complications: NONE apparent at time of evaluation Final Primary Anesthesia Type: General (The anesthetic type performed was the same as planned.) Comments: * Anesthesia Preprocedure Evaluation - Darrell Hernández MD - 09/04/2022 1:51 PM EDT Pre-Anesthesia Evaluation for: Lawanda Mcdaniel a 22 y.o. female. Procedure(s): ERCP Patient Active Problem List Diagnosis Date Noted ??? Anaphylaxis 02/02/2018 ??? Asthma 02/02/2018 ??? 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 Allergy to environmental factors 02/02/2018 No past medical history on file. Past Surgical History: Procedure Laterality Date ? ? PRO ERCP BILIARY OR PANCREATIC DUCT STENT REMOVAL & EXCHANGE W/DIL&WIRE 02/21/2022 ERCP, W REMOVAL& EXCHANGE STENT, BILIARY/PANCREATIC DUCT performed by Bijan Felipe MD at [facility] END[facility]COPY ? ? PRO ERCP BILIARY OR PANCREATIC DUCT STENT REMOVAL & EXCHANGE W/DIL&WIRE N/A 06/10/2022 ERCP, W REMOVAL& EXCHANGE STENT, BILIARY/PANCREATIC DUCT performed by Bijan Felipe MD at [facility] END[facility]COPY ??? PRO ERCP, SPHINCTEROTOMY N/A 02/21/2022 ERCP W/SPHINCTEROTOMY/PAPILLOTOMY performed by Bijan Felipe MD at [facility] ENDOSCOPY ??? PRO ERCP, W/REMOVAL STONE, NICKY/PANCR DUCTS 02/21/2022 ERCP W/REMOVAL CALCULI/DEBRIS FROM BILARY/PANCREATIC DUCT(S) performed by Bijan Felipe MD at [facility] ENDOS[facility] Social History Tobacco Use ??? Smoking status: Never ??? Smokeless tobacco: Current ??? Tobacco comments: vape pen Substance Use Topics ??? Alcohol use: Not Currently Alcohol/week: 0.0 - 5.0 standard drinks Social History Substance and Sexual Activity Drug Use Yes ??? Frequency: 1.0 times per week ??? Types: Marijuana Allergies Allergen Reactions ??? Unknown [Unclassified Drug] Hives tdap shot, purtussis Medications: MAR and/or home medications have been reviewed. Physical Exam: Preprocedure Vitals Current as of 06/09/222037 No BP, pulse, respiration, SpO2, or temperature recorded. Height: Weight: BMI: IBW: Airway Assessment: Mallampati: II TM distance: >3 FB Neck ROM: full Cardiovascular Assessment: Rhythm: regular Rate: normal system normal Pulmonary Assessment: unlabored breathing Dental Assessment: Misc Assessment: IV access: Peripheral line Last Filed Perioperative Cognitive Screening None Anesthesia Plan: ASA 2 general, with a(n) intravenous induction 21 y.o. female never smoker but vapes and has asthma with a history of laparoscopic converted to open cholecystectomy c/b CBD injury requiring ERCP who presents for ERCP. Past Anesthesia History: - Airway history: previously EMV, G1V and G2V with Mac 3 - Anesthetic exposures: Prior GA for ERCP / omaira - Anesthetic complications: no personal or family hx anesthetic complications NPO status appropriate No Known Allergies Assessment/Plan ASA 1 GA/ETT; routine monitors Risks, plans, and procedures discussed with patient who understands and consents; questions and concerns addressed Region - Other Informed Consent: Anesthetic plan and risks discussed with patient. Plan discussed with SALSA DANCE INSTRUCTOR. Anesthesia Screening documented in this encounter Plan of Treatment Not on file documented as of this encounter Visit Diagnoses Not on filedocumented in this encounter Administered Medications Inactive Administered Medications - up to 3 most recent administrations Medication Order MAR Action Action Date Dose Rate Site dexAMETHasone (Decadron) injection Intravenous, PRN, Starting on Lashay 09/05/22 at 1047, Until Lashay 09/05/22 at 1146, Anesthesia Intra-op, Routine Given 09/05/2022 10:47 AM EDT 4 mg dexmedeTOMIDine (Precedex) (4 mcg/mL) bolus injection (Anesthsia) Intravenous, PRN, Starting on Lashay 09/05/22 at 1059, Until Lashay 09/05/22 at 1146, Anesthesia Intra-op, Routine Given 09/05/2022 10:59 AM EDT 8 mcg lactated ringers infusion 100 mL/hr, Intravenous, CONTINUOUS, Starting on Lashay 09/05/22 at 0915, Until Lashay 09/05/22 at 1350, Endoscopy (Day of Procedure) New Bag 09/05/2022 10:20 AM EDT lidocaine (pf) (Xylocaine) (20 mg/mL) 2% injection syringe Intravenous, PRN, Starting on Lashay 09/05/22 at 1025, Until Lashay 09/05/22 at 1146, Anesthesia Intra-op, Routine Given 09/05/2022 10:25 AM EDT 40 mg midazolam (pf) (Versed) (1 mg/mL) multi-dose injection Intravenous, PRN, Starting on Lashay 09/05/22 at 1020, Until Lashay 09/05/22 at 1146, Anesthesia Intra-op, Routine Given 09/05/2022 10:20 AM EDT 2 mg PHENYLephrine in NS (PF) (STEPHON-SYNEPHRINE) 0.8 mg/10 mL (80 mcg/mL) multi-dose injection Syringe Intravenous, PRN, Starting on Lashay 09/05/22 at 1059, Until Lashay 09/05/22 at 1146, Anesthesia Intra-op, Routine Given 09/05/2022 10:59 AM EDT 40 mcg propofoL (Diprivan) (10 mg/mL) infusion Intravenous, CONTINUOUS PRN, Starting on Lashay 09/05/22 at 1026, Until Lashay 09/05/22 at 1146, Anesthesia Intra-op, Routine Rate/Dose Change 09/05/2022 11:11 AM EDT 100 mcg/kg/min 40.02 mL/hr New Bag 09/05/2022 10:26 AM EDT 200 mcg/kg/min 80.04 mL /hr propofoL (Diprivan) 10 mg/mL bolus injection (Anesthesia) Intravenous, PRN, Starting on Lashay 09/05/22 at 1025, Until Lashay 09/05/22 at 1146, Anesthesia Intra-op Given 09/05/2022 10:25 AM EDT 200 mg succinylcholine (Anectine;Quelicin) (20 mg/mL) injection Intravenous, PRN, Starting on Lashay 09/05/22 at 1025, Until Lashay 09/05/22 at 1146, Anesthesia Intra-op, Routine Given 09/05/2022 10:25 AM EDT 100 mg documented in this encounter Care Teams Compliance Consultant Relationship Specialty Start Date End Date None None PCP - General 02/21/22 documented as of this encounter
--- OUTSIDE RECORDS SUMMARY | 2023-12-09 09:06 | XMS_ITS | Encounter Summary ---
[facility] [place] [address] Care Team Providers Care Religion Teacher Name Role Phone None Primary Care Provider Unavailabl e Reason for Visit * Auth/Cert (Routine) Specialty Diagnoses / Procedures Referred By Contac t Referred To Contact Diagnoses Obstruction of bile duct stent exchange or removal-f/up bile duct injury Procedures PRO ERCP,DIAGNOSTIC ERCP (WRVU 5.85) Bijan Felipe MD [facility] [place] [address] [facility] Referral ID Status Reason Start Date Expiration Date Visits Re quested Visits Authorized [id number] 1 1 Encounter Details Date Type Department Care Team (Latest Contact Info) Description 09/05/2022 8:28 AM EDT - 09/05/2022 1:43 PM EDT Hospital Encounter [place] [address] Bijan Felipe MD [facility] [place] [address] Bile duct stricture (Primary Dx) Discharge Disposition: Home Social [...] Sign Reading Time Taken Comments Blood Pressure 117/88 09/05/2022 12:50 PM EDT Pulse 76 09/05/2022 8:46 AM EDT Temperature 36.2 ??C (97.2 ??F) 09/05/2022 8:46 AM ED T Respiratory Rate 13 09/05/2022 12:40 PM EDT Oxygen Saturation 100% 09/05/2022 12:50 PM EDT Inhaled Oxygen Concentration - - [...] occurs, please contact your Doctor. Please call [phone] before 8pm Mon-Fri with problems, questions or concerns. If you call after 8pm or on weekends, call the Hospital at [phone] and ask to speak to the Journalism Internship electron beam photo mask maker and the aviation warfare systems operator will contact that person for you. When should you call for help? Call [phone] anytime you think you may need emergency [...] After Visit Summary and more online at [email or web address] If you would like to provide feedback about your hospital experience, please call the Office of Patient and Family Relations at . If you have received this After Visit Summary in error, please immediately return it in person to the department, or notify the [facility] Privacy Office by calling toll free at between the hours of 8AM and 5PM to arrange for our retrieval of the documents at no cost to you. Content Version: 12.2 ?? [id number] [employer]. Care instructions adapted under license by [facility]. If you have questions about a medical condition or this instruction, always ask your healthcare professional. [employer] disclaims any warranty or liability for your [...] AM EDT Ercp, W/Removal Stone, Mono/Pancr Ducts (75565) 09/05/2022 10:21 AM EDT Bile duct stricture Ercp Balloon Dilatation Biliary/Pancreatic Duct Or Ampulla Ea Duct (57800) 09/05/2022 10:21 AM EDT Bile duct stricture CHOLANGIOGRAM 09/05/2022 10:21 AM EDT Bile duct stricture Ercp Biliary Or Pancreatic Duct Stent Removal & Exchange W/Dil&Wire(01402) 09/05/2022 10:21 AM EDT Bile duct stricture ERCP Routine 09/05/2022 9:50 AM EDT documented in this encounter Results * XR ERCP (09/05/2022 11:25 AM EDT) Narrative [facility] - 09/05/2022 11:25 AM EDT See PACS for result report. Bijan Felipe MD IMG FILM LIBRARY ORD ERABLES [facility] * ERCP (09/05/2022 9:50 AM EDT) ERCP [facility] Endoscopy Procedure Date: 09/05/2022 9:50 AM ? Patient Name: Lawanda Mcdaniel ? Date of : 2000 ? Age: 22 ? Order #: [id number] ? Instrument Name: [id number] ? Procedure: ? ERCP Indications: ? Follow-up of bile leak, Stent ? 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 Bijan Felipe MD, Anusha ? Devon Lowry Referring : ?Dayanna Peters MD, Andrade Mendenhall Medicines: ? General Anesthesia, Indomethacin ? 100 mg TN Complications: ? No immediate complications. Procedure: ? [...] A biliary stent was visible on the aircraft lay out worker film. The ? esophagus was successfully intubated [...] duct stricture- Primary Obstruction of bile duct documented [...] Routine 1226 (Given - Provid er: Maria Leslie VALDEMAR)4068 (Given - Provider: Maria Leslie RN) documented in this encounter Care Teams Religion Teacher Relationship Specialty Start Date End Date None None PCP - General 02/21/22 documented as of this encounter
--- OUTSIDE RECORDS SUMMARY | 2023-12-09 09:06 | XMS_ITS | Encounter Summary ---
[place] [address] Care Team Providers Care Pharmaceutical Representative Name Role Phone None Primary Care Provider Unavailabl e Reason for Visit * Auth/Cert (Routine) Specialty Diagnoses / Procedures Referred By Contac t Referred To Contact Diagnoses Bile duct stricture bile duct stricture-stent removal or exchange Procedures PRO ERCP,DIAGNOSTIC PRO ANESTH, UGI ENDOSCOPY ERCP ERCP (WRVU 5.85) Bijan Felipe MD [facility] [place] [address] [facility] Referral ID Status Reason Start Date Expiration Date Visits Re quested Visits Authorized [id number] 1 1 Encounter Details Date Type Department Care Team (Late st Contact Info) Description 12/18/2022 2:47 PM EDT Anesthesia [place] [address] Wm Berger MD [facility] [place] [address] Rosi Adkins Anesthesia Record Procedure Summary Procedure Name Responsible Anesthesiologist Anesthesia Start Time Anesthesia Stop Time ERCP, W BALLOON DILATION OF BILIARY/PANCREATIC DUCT (WRVU 6.9) (Trunk) Wm Berger MD 12/18/22 1447 12/18/22 1533 Events Date Time Event Comment 12/18/2022 1440 1445 AN Verify 1447 Start 1447 An Start Data 1451 An Induction 1454 An Intubation 1457 Anesthesia Ready 1505 Procedure Start 1522 an surinder now 1527 Extubation/LMA Out 1528 an stop data 1532 Recovery or ICU Handoff Martha ent care was transferred to the destination unit staff after review of the patient's medical history, current anesthetic/surgical status and plan, according to the Provider Handoff Checklist. 1533 Stop Meds Name Total IV Lidocaine 100 mg Propofol 200 mg Propofol INF 355.32 mg Dexmedetomidine 24 mcg Succinylcholine 100 mg Dexamethasone 4 mg Lactated Ringers 800 mL * Agents Name O2 * Blood No blood administrations on file. Lines, Drains, and Airways Type Details Placement Removal (RETIRED) Peripheral IV Line - Single Lumen 12/18/22; 1428; metacarpal vein (top of hand), left; [id number]-arp-qshtzs catheter system; 20 gauge, 1 in length; bab; 12/18/22; 1633 12/18/22 1428 by Florence Bradley RN 12/18/22 1633 by Rosy Hernandes RN ETT Mask Ventilation: Ea sy (1); ETT Type: Cuffed, Oral; ETT Size: 7 mm; Mac Blade: 3; Notes: Asleep, Pre-O2, Stylette; Attempts: 1; Laryngoscopy Grade: 1; ETT Placement Verified By: Auscultation, Capnometry, Visual; Secured at Teeth: 21 cm; Inserted by: LYLE Adkins; Removal Date: 12/18/22; Removal Time: 1527 12/18/22 1454 by Pedro Brown CRNA 12/18/22 1527 by Perdo Brown CRNA documented in this encounter Social History Tobacco [...] OR Notes * Anesthesia Postprocedure Evaluation - Wm Berger MD - 12/18/2022 3:36 PM EDT Department of Anesthesiology Post-procedure Note Patient: Lawanda Mcdaniel Procedure Summary Date: 12/18/22 Room / Location: [facility] ENDO [facility] / [facility] END[facility] Anesthesia Start: 1447 Anesthesia Stop: 1533 Procedures: ERCP, W BALLOON DILATION OF BILIARY/PANCREATIC DUCT (WRVU 6.9) (Trunk) CHOLANGIOGRAM (Abdomen) Diagnosis: Bile duct stricture (bile duct stricture-stent removal or exchange) Surgeons: Bijan Felipe MD Responsible Provider: Wm Berger MD Anesthesia Type: general ASA Status: 2 All Anesthesia Providers: Anesthesiologist: Wm Berger MD COUNTER SUPERVISOR: Pedro Brown CRNA Student Nurse [place] Laborer: Rosi Adkins Vitals Value Taken Time BP Temp Pulse Resp SpO2 Pain Level Patient Location: PACU/[facility] Level of Consciousness: Awake and Alert Pain Management: Pain Being Addressed PONV: None Cardiovascular Status: At Baseline Respiratory Status: At Baseline Postoperative Fluid Status: Intravascular EUvolemia Possible Anesthetic Complications: NONE apparent at time of evaluation Final Primary Anesthesia Type: General (The anesthetic type performed was the same as planned.) Comments: * Anesthesia Preprocedure Evaluation - Wm Berger MD - 12/18/2022 2:06 PM EDT Pre-Anesthesia Evaluation for: Lawanda Mcdaniel a 22 y.o. female. Procedure(s): ERCP (WRVU 5.85) Patient Active Problem List Diagnosis Date Noted ??? Anaphylaxis 02/02/2018 ??? Asthma 02/02/2018 ??? 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 Allergy to environmental factors 02/02/2018 No past medical history on file. Past Surgical History: Procedure Laterality Date ??? PRO ERCP BALLOON DILATATION BILIARY/PANCREATIC DUCT OR AMPULLA EA DUCT 09/05/2022 ERCP, W BALLOON DILATION OF BILIARY/PANCREATIC DUCT (WRVU 6.9) performed by Bijan Felipe MD [facility] ENDOSCOPY ? ? PRO ERCP BILIARY OR PANCREATIC DUCT STENT REMOVAL & EXCHANGE W/DIL&WIRE 02/21/2022 ERCP, W REMOVAL& EXCHANGE STENT, BILIARY/PANCREATIC DUCT performed by Bijan Felipe MD at [facility] ENDOSCOPY ? ? PRO ERCP BILIARY OR PANCREATIC DUCT STENT REMOVAL & EXCHANGE W/DIL&WIRE N/A 06/10/2022 ERCP, W REMOVAL& EXCHANGE STENT, BILIARY/PANCREATIC DUCT performed by Bijan Felipe MD at [facility] ENDOSCOPY ? ? PRO ERCP BILIARY OR PANCREATIC DUCT STENT REMOVAL & EXCHANGE W/DIL&WIRE N/A 09/05/2022 ERCP, W REMOVAL& EXCHANGE STENT, BILIARY/PANCREATIC DUCT (WRVU 8.84) performed by Bijan Felipe MD at [facility] ENDOSCOPY ??? PRO ERCP, SPHINCTEROTOMY N/A 02/21/2022 ERCP W/SPHINCTEROTOMY/PAPILLOTOMY performed by Bijan Felipe MD at [facility] ENDOSCOPY ??? PRO ERCP, W/REMOVAL STONE, NICKY/PANCR DUCTS 02/21/2022 ERCP W/REMOVAL CALCULI/DEBRIS FROM BILARY/PANCREATIC DUCT(S) performed by Bijan Felipe MD at [facility] ENDOSCOPY ??? PRO ERCP, W/REMOVAL STONE, NICKY/PANCR DUCTS 09/05/2022 ERCP W/REMOVAL CALCULI/DEBRIS FROM BILARY/PANCREATIC DUCT(S) (WRVU 6.63) performed by Bijan Felipe MD at [facility] ENDOSCOPY Social History Tobacco Use ??? Smoking status: Never ??? Smokeless tobacco: Current ??? Tobacco comments: vape pen Substance Use Topics ??? Alcohol use: Yes Alcohol/week: 0.0 - 5.0 standard drinks Comment: social Social History Substance and Sexual Activity Drug Use Yes ??? Frequency: 1.0 times per week ??? Types: Marijuana Comment: occasional Allergies Allergen Reactions ??? Ondansetron Nausea Only ??? Unknown [Unclassified Drug] Hives tdap shot, purtussis Medications: MAR and/or home medications have been reviewed. Physical Exam: Preprocedure Vitals Current as of 12/18/22 1406 No BP, pulse, respiration, SpO2, or temperature recorded. Height: Weight: BMI: IBW: Airway Assessment: Mallampati: I TM distance: >3 FB Neck ROM: full Cardiovascular Assessment: Rhythm: regular Rate: normal Pulmonary Assessment: breath sounds clear to auscultation Dental Assessment: Misc Assessment: Last Filed Perioperative Cognitive Screening None Anesthesia Plan: ASA 2 general, with a(n) intravenous induction Patient is a 22-year-old female scheduled for ERCP. She is n.p.o. since yesterday not any meds thismorning denies any recent URI. Consent was obtained Region - Other Informed Consent: Anesthetic plan and risks discussed with patient. Plan discussed with COUNTER SUPERVISOR and attending. Anesthesia Screening documented in this encounter Plan of Treatment Not on file documented as of this encounter Visit Diagnoses Not on filedocumented in this encounter Administered Medications Inactive Administered Medications - up to 3 most recent administrations Medication Order MAR Action Action Date Dose Rate Site dexAMETHasone (Decadron) injection Intravenous, PRN, Starting on Fri12/18/22 at 1500, Until Fri12/18/22 at 1535, Anesthesia Intra-op, Routine Given 12/18/2022 3:00 PM EDT 4 mg dexmedeTOMIDine (Precedex) (4 mcg/mL) bolus injection (Anesthsia) Intravenous, PRN, Starting on Fri12/18/22 at 1445, Until Fri12/18/22 at 1535, Anesthesia Intra-op, Routine Given 12/18/2022 3:10 PM EDT 6 mcg Given 12/18/2022 3:07 PM EDT 6 mcg Given 12/18/2022 2:51 PM EDT 4 mcg lactated ringers infusion Intravenous, CONTINUOUS PRN, Starting on Fri12/18/22 at 1429, Until Fri12/18/22 at 1535, Anesthesia Intra-op New Bag 12/18/2022 2:29 PM EDT lidocaine (pf) (Xylocaine) (20 mg/mL) 2% injection syringe Intravenous, PRN, Starting on Fri12/18/22 at 1451, Until Fri12/18/22 at 1535, Anesthesia Intra-op, Routine Given 12/18/2022 2:51 PM EDT 100 mg propofoL (Diprivan) (10 mg/mL) infusion Intravenous, CONTINUOUS PRN, Starting on Fri12/18/22 at 1451, Until Fri12/18/22 at 1535, Anesthesia Intra-op, Routine New Bag 12/18/2022 2:51 PM EDT 200 mcg/kg/min 78.96 mL/hr propofoL (Diprivan) 10 mg/mL bolus injection (Anesthesia) Intravenous, PRN, Starting on Fri12/18/22 at 1505, Until Fri12/18/22 at 1535, Anesthesia Intra-op Given 12/18/2022 3:05 PM EDT 30 mg Given 12/18/2022 2:52 PM EDT 20 mg Given 12/18/2022 2:51 PM EDT 150 mg succinylcholine (Anectine;Quelicin) (20 mg/mL) injection Intravenous, PRN, Starting on Fri12/18/22 at 1453, Until Fri12/18/22 at 1535, Anesthesia Intra-op, Routine Given 12/18/2022 2:53 PM EDT 100 mg documented in this encounter Care Teams Pharmaceutical Representative Relationship Specialty Start Date End Date None None PCP - General 02/21/22 documented as of this encounter
--- OUTSIDE RECORDS SUMMARY | 2023-12-09 09:06 | XMS_ITS | Encounter Summary ---
[facility] [place] [address] Care Team Providers Care Warehouse Associate Name Role Phone None Primary Care Provider Unavailabl e Reason for Visit * Auth/Cert (Routine) Specialty Diagnoses / Procedures Referred By Contac t Referred To Contact Diagnoses Bile duct stricture bile duct stricture-stent removal or exchange Procedures PRO ERCP,DIAGNOSTIC PRO ANESTH, UGI ENDOSCOPY ERCP ERCP (WRVU 5.85) Bijan Felipe MD [facility] [place] [address] [facility] Referral ID Status Reason Start Date Expiration Date Visits Re quested Visits Authorized [id number] 1 1 Encounter Details Date Type Department Care Team (Late st Contact Info) Description 12/18/2022 2:45 PM EDT Ancillary Procedure [place] [id number] Social History Tobacco Use Types Packs/Day Years [...] XR ERCP Routine 12/18/2022 3:28 PM EDT documented in this encounter Results * XR ERCP (12/18/2022 3:28 PM EDT) Narrative [facility] - 12/18/2022 3:28 PM EDT See PACS for result report. Bijan Felipe MD IMG FILM LIBRARY ORD ERABLES [place], [place] documented in this encounter Visit Diagnoses Not on filedocumented in this encounter Care Teams Warehouse Associate Relationship Specialty Start Date End Date None None PCP - General 02/21/22 documented as of this encounter
--- OUTSIDE RECORDS SUMMARY | 2023-12-09 09:06 | XMS_ITS | Encounter Summary ---
Author Organization [facility] [place] [address] Care Team Providers Care Decorating And Assembly Supervisor Name Role Phone None Primary Care Provider Unavailabl e Encounter Details Date Type Department Care Team (Latest Contact Info) Description 12/28/2022 Travel Social History Tobacco Use Types Packs/Day Years [...] on filedocumented in this encounter Care Teams Decorating And Assembly Supervisor Relationship Specialty Start Date End Date None None PCP - General 02/21/22 documented as of this encounter
--- OUTSIDE RECORDS SUMMARY | 2023-12-09 09:06 | XMS_ITS | Encounter Summary ---
Author Organization [facility] [place] [address] Care Team Providers Care Submarine Worker Name Role Phone None Primary Care Provider Unavailabl e Encounter Details Date Type Department Care Team (Late st Contact Info) Description 11/27/2022 Telephone [place] [phone] Jp July Social History Tobacco Use Types Packs/Day Years [...] encounter Miscellaneous Notes * Telephone Encounter - Jp July - 11/27/2022 1:34 PM EDT Lawanda Lopes Jonas [id number] Diagnosis/Indication: STENT CHANGE/REMOVAL Please review patient chart to confirm if previous Endoscopy procedure was performed within system. If yes, take note of Anesthesia type used. If previous procedure found, and with MAC/propofol Anesthesia support was used, schedule this procedure with Anesthesia and skip the Anesthesia portion of questions. If not performed within system, not performed at all, or performed with IVCS, ask Anesthesia questions. SCHEDULING QUESTIONS (ask all patient these questions) Have you ever had a/an ERCP before? Yes: Date 09/05/22 If yes, did you have any problems with the procedure (such as waking up during the procedure, pain or difficulties afterwards, etc.)? No What type of sedation was used: General Anesthesia Do you take any blood thinners or have you been diagnosed with a bleeding disorder that increases your risk of bleeding with procedures? No Do you have a Pacemaker or Defibrillator device? If yes, send pool message to Cardiology with patient information and date or procedure. No Are you a diabetic? If yes, call PCP/managing provider to discuss use of prep and any questions or concerns related to. No Do you take any iron supplements or vitamins that contain iron? No Do you have a preference regarding the gender of your provider? Yes ANESTHESIA QUESTIONS (YES to any question, please book with Anesthesia support) Have you ever been diagnosed with Pulmonary Hypertension and/or Congential Heart Disease? No Have you been diagnosed with A-Fib (atrial fibrillation) that is NOT being well controled with medications? No Have you ever had an allergic or adverse reaction to Fentanyl or Versed? No Have you had a problem with sedation or anesthesia? (Waking up during procedure, extreme confusion after, etc.) No Do you have a diagnosis of Obstructive Sleep Apnea that requires the use of a c- pap machine? No Do you use an oxygen tank at home? No Do you use a rescue inhaler more than twice per day? (COPD, severe asthma) No Do you experience breathing problems when you lay flat for a period of time? No Do you take prescription narcotic pain medications, including suboxone or methodone? No SCHEDULING CONFIRMATIONS: Please note any and all parts of your conversation with the patient here. We offer all new patients an opportunity to have an appointment with one of our associate care providers to learn more about your upcoming procedure, ask questions and get answers. These appointmentsare offered via telehealth. Would you be interested in scheduling this appointment? (Only ask if NEW referral patient; skip this question if [facility] GI provider ordered the procedure.) No Is there any other information or concerns you would like to us to share with your care team in relation to your upcoming scheduled procedure? No You must have a responsible alliance party who will drive you to your procedure, stay on campus for the entire duration of your procedure, and drive you home from your procedure. Who will likely be your flatbed truck driver for the procedure? Estimated body mass index is 26.04 kg/m?? as calculated from the following: Height as of 02/21/22: 160 cm (5' 3). Weight as of 06/10/22: 66.7 kg (147 lb). Age:22 y.o. documented in this encounter Plan of Treatment Not on file documented as of this encounter Visit Diagnoses Not on filedocumented in this encounter Care Teams Submarine Worker Relationship Specialty Start Date End Date None None PCP - General 02/21/22 documented as of this encounter
--- OUTSIDE RECORDS SUMMARY | 2023-12-09 09:06 | XMS_ITS | Encounter Summary ---
Author Organization [facility] [place] [address] Care Team Providers Care Mash Grinder Name Role Phone None Primary Care Provider Unavailabl e Reason for Visit * Auth/Cert (Routine) Specialty Diagnoses / Procedures Referred By Contac t Referred To Contact Diagnoses Bile duct stricture bile duct stricture-stent removal or exchange Procedures PRO ERCP,DIAGNOSTIC PRO ANESTH, UGI ENDOSCOPY ERCP ERCP (WRVU 5.85) Bijan Felipe MD [facility] [place] [address] [facility] Referral ID Status Reason Start Date Expiration Date Visits Re quested Visits Authorized [id number] 1 1 Encounter Details Date Type Department Care Team (Late st Contact Info) Description 12/18/2022 2:45 PM EDT - 12/18/2022 4:15 PM EDT [place] [address] Bijan Felipe MD [facility] [place] [address] ERCP, W BALLOON DILATION OF BILIARY/PANCREATIC DUCT (WRVU 6.9) Social History Tobacco Use Types Packs/Day Years [...] Sign Reading Time Taken Comments Blood Pressure 102/75 12/18/2022 4:10 PM EDT Pulse - - Temperature 36.7 ??C (98.1 ??F) 12/18/2022 2:12 PM ED T Respiratory Rate 18 12/18/2022 4:10 PM EDT Oxygen Saturation 100% 12/18/2022 4:15 PM EDT Inhaled Oxygen Concentration - - [...] the day after the procedure, use an [id number]-ihhpcwi spray to numb your throat. Sucking on [...] occurs, please contact your Doctor. Please call [phone] before 8pm Mon-Fri with problems, questions or concerns. If you call after 8pm or on weekends, call the Hospital at [phone] and ask to speak to the Mobile Home Lot Utility Worker business operations consultant and the bag machine operator will contact that person for you. When should you call for help? Call [phone] anytime you think you may need emergency [...] problems, like Where can you learn more? [facility] View your After Visit Summary and more online at [email or web address] If you would like to provide feedback about your hospital experience, please call the Office of Patient and Family Relations at . If you have received this After Visit Summary in error, please immediately return it in person to the department, or notify the [facility] Privacy Office by calling toll free at between the hours of 8AM and 5PM to arrange for our retrieval of the documents at no cost to you. Content Version: 12.2 ?? [id number] [employer]. Care instructions adapted under license by [facility]. If you have questions about a medical condition or this instruction, always ask your healthcare professional. [employer] disclaims any warranty or liability for your [...] spacing device ([employer]) Spacer by [facility].(Non-Drug; Combo Route) route. As directed. May substitute [...] Dilatation Biliary/Pancreatic Duct Or Ampulla Ea Duct (08853) 12/18/2022 2:47 PM EDT Bile duct stricture ERCP Routine 12/18/2022 2:40 PM EDT documented in this encounter Results * XR ERCP (12/18/2022 3:28 PM EDT) Narrative [facility] - 12/18/2022 3:28 PM EDT See PACS for result report. Bijan Felipe MD IMG FILM LIBRARY ORD ERABLES [place], [place] * ERCP (12/18/2022 2:40 PM EDT) ERCP [facility] Endoscopy Procedure Date: 12/18/2022 2:40 PM ? Patient Name: Lawanda Mcdaniel ? Date of : 2000 ? Age: 22 ? Order #: [id number] ? Instrument Name: [id number] ? Procedure: ? ERCP Indications: ? 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 iatrogenic biliary injury during ? cholecystectomy Providers: ? Bijan Felipe MD, Andrew Damon ? Halle Tavares, Gigi ? Jennifer Pabon MD: ?Dayanna Peters MD, [...] the ? physician, the nurse, the ? postmaster and the wiring technician. The ? procedure was verified in [...] propofol under the ? supervision of a PLASTIC WELDER was ? determined to be medically ? [...] the procedure well. ? Findings: ? A venue coordinator film of the abdomen was obtained. Surgical ? clips, consistent with a previous cholecystectomy, ? were seen in the area of the right upper quadrant of ? the abdomen. The previously placed plastic stents ? were not seen on venue coordinator film. The esophagus was ? successfully intubated [...] Biliary stricture- Primary Obstruction of bile duct Bile [...] RN) documented in this encounter Care Teams Mash Grinder Relationship Specialty Start Date End Date None None PCP - General 02/21/22 documented as of this encounter
--- OUTSIDE RECORDS SUMMARY | 2023-12-09 09:06 | XMS_ITS | Encounter Summary ---
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 Procedures PRO ERCP,DIAGNOSTIC ERCP (WRVU 5.85) Bijan Felipe MD [facility] [place] [address] [facility] Referral ID Status Reason Start Date Expiration Date Visits Re quested Visits Authorized [id number] 1 1 Encounter Details Date Type Department Care Team (Late st Contact Info) Description 09/05/2022 9:30 AM EDT Ancillary [place] [address] Social History Tobacco Use Types Packs/Day Years [...] XR ERCP Routine 09/05/2022 11:25 AM EDT documented in this encounter Results * XR ERCP (09/05/2022 11:25 AM EDT) Narrative RAD - 09/05/2022 11:25 AM EDT See PACS for result report. Bijan Felipe MD IMG FILM LIBRARY ORD ERABLES [place], [place] documented in this encounter Visit Diagnoses Not on filedocumented in this encounter Care Teams Popcorn Candy Maker Relationship Specialty Start Date End Date None None PCP - General 02/21/22 documented as of this encounter
--- OUTSIDE RECORDS SUMMARY | 2023-12-09 09:06 | XMS_ITS | Clinical Summary ---
Author Organization [facility] [place] [address] Care Team Providers Care Conference Assistant Name Role Phone None Primary Care Provider Unavailabl e Allergies Active Allergy Reactions Criticality Noted Date Comments Ondansetron Nausea Only 09/05/2022 Unclassified Drug Hives 06/10/2022 tdap shot, purtussis Medications Medication Sig Dispensed Refills Start Date End Date Status albuteroL 90 mcg/actuation HFA Aerosol Inhaler Inhale 1-2 puffs into the lungs every 4 hours as needed. 03/29/2014 Active etonogestrel (NEXPLANON) 68 mg Implant by Subdermal route Continuous (Device). Active EPINEPHrine 0.3 mg/0.3 mL Auto-Injector Inject 0.3 mg into the muscle as needed. Active inhalational spacing device ([employer]) Spacer by [facility]Non-Drug; Combo Route) route. As directed. May substitute aerochamber. 2 each 1 02/02/2018 Active acyclovir (Zovirax) 200 mg capsule Take by mouth as needed. 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 Notify clinic if episode recurs Keep epinephrine autoinjector available OK to retry culprits Asthma 02/02/2018 Assessment & Plan (02/02/2018 9:47 AM EDT): Discussed as needed albuterol Baseline spirometry normal today, recommend exercise challenge study with inflammation index. 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 Either at home or clinic, carefully try soy beverage. Instructions for Home Challenge Begin with a very small taste. Then every 30 minutes to several days may advance amount by doubling previous tolerated amount if no reaction occurs. If any symptoms occur, stop introduction. Seek care for any symptoms besides 1-2 hives. Notify allergy clinic if any symptoms occur. 1. 16th teaspoon 2. 1/8 teaspoon 3. 1/4 teaspoon 4. 1/2 teaspoon 5. 1 teaspoon 6. 2 teaspoon 7. 1 tablespoon 8. 1 ounce and continue to gradually advance to full serving size as tolerated Allergy to environmental factors 02/02/2018 Assessment & Plan (02/02/2018 10:55 AM EDT): Reviewed avoidance of dust mites, dog, tree pollen, weed, and mold Encounters Date Type Department Care Team Description 11/02/2023 Interpretation Only [address] [address] Ever Irwin MD 11/02/2023 Interpretation Only [address] [address] Ever Irwin MD 10/30/2023 Interpretation Only [address] [address] Ever Irwin MD from Last 3 Months Family History Medical History Relation Comments Food Allergy Cousin Asthma Maternal Aunt Asthma Maternal Uncle Allergic Rhinitis Sister Relation Status Comments Cousin Maternal Aunt Maternal Uncle Sister Social History Tobacco Use Types Packs/Day Years [...] on file Sexual Orientation Not on file Last Filed Vital Signs Vital Sign Reading Time Taken Comments Blood Pressure 109/63 12/28/2022 2:52 AM EDT Pulse 82 12/28/2022 2:52 AM EDT Temperature 36.9 ??C (98.4 ??F) 12/28/2022 2:52 AM ED T Respiratory Rate 19 12/18/2022 4:30 PM EDT Oxygen Saturation 98% 12/28/2022 2:52 AM EDT Inhaled Oxygen Concentration - - Weight 65.8 kg (145 lb) 12/28/2022 1:07 AM EDT Height 160 cm (5' 3) 12/28/2022 1:07 AM EDT Body Mass Index 25.69 12/28/2022 1:07 AM EDT Plan of Treatment Health Maintenance Due Date Last Done Comments Pneumococcal Vaccine: At-Risk 5-64yrs (1 of 2 - PCV) 0 2006 Chlamydia Screening 08/15/2015 HPV vaccine (1 - 3-dose series) 08/15/2015 HIV screen 2018 Hepatitis C Screening 2018 Hepatitis B vaccine (0-59 yrs) (1) 08/15/2019 Tdap adult 08/15/2019 Tetanus vaccine 08/15/2019 PAP Smear 2021 Covid-19 Vaccine (1 - 2022-24 season) 2022 Influenza (Flu) vaccine (1 o f 1 - Influenza standard series) 12/14/2023 Medical Devices Implanted Type Area Ground Hand Device Identifier Shelf Expiration Date Model / Serial / Lot Stent Advanix [id number] Rx Plastic Duodenal Bend ([id number]) - [id number] Implanted:Qty: 1 on 06/10/2022 by Bijan Felipe MD at [facility] IMPLANTS N/A: Bile Duct Red [employer] 01/28/2024 [id number] / / [id number] Stent Advanix [id number] Rx Plastic Duodenal Bend ([id number]) - [id number] Implanted:Qty: 1 on 09/05/2022 by Bijan Felipe MD at [facility] IMPLANTS N/A: Bile Duct [employer] 07/22/2024 [id number] / / [id number] Stent Advanix [id number] Rx Plastic Duodenal Bend ([id number]) - [id number] Implanted:Qty: 1 on 09/05/2022 by Bijan Felipe MD at [facility] IMPLANTS N/A: Bile Duct [employer] 06/25/2024 [id number] / / [id number] Explanted Type Area Ground Hand Device Identifier Shelf Expiration Date Model / Serial / Lot Stent Advanix [id number] Rx Plastic Duodenal Bend ([id number]) - [id number] Implanted:Qty: 1 on 02/21/2022 by Bijan Felipe MD at [facility] Explanted:Qty: 1 on 09/05/2022 by Bijan Felipe MD at [facility] IMPLANTS Bile Duct [employer] [id number] / / Stent Advanix [id number] Rx Plastic Duodenal Bend ([id number]) - [id number] Implanted:Qty: 1 on 06/10/2022 by Bijan Felipe MD at [facility] Explanted:Qty: 1 on 09/05/2022 by Bijan Felipe MD at [facility] IMPLANTS N/A: Bile Duct [employer] 05/14/2023 [id number] / / [id number] Procedures Procedure Name Priority Date/Time Associated Diagnosis Comments CT ABDOMEN AND PELVIS WO CONTRAST STAT 11/02/2023 12:38 AM EDT XR CHEST ONE VIEW STAT 11/02/2023 12: 34 AM EDT XR HAND MIN 3 VIEWS RIGHT STAT 10/30/2023 12:44 PM EDT from Last 3 Months Results * CT Abdomen & Pelvis wo Contrast (11/02/2023 12:38 AM EDT) PT CLASS E RAD ADMITDTTM [id number] [facility] PT [facility] INFO [id number]^Findle y^Christopher^Xiomy d [facility] EXAM DESC CTAPWO^CT Abdomen and Pelvis w/o Contrast^RIS [facility] WORKSTATION ID [id number] [facility] Anatomical Region Laterality Modality Abdomen, Pelvis Computed Tomogra phy 11/02/2023 12:3 8 AM EDT Impressions 11/02/2023 12:52 AM EDT No hydronephrosis or urolithiasis. Thank you for letting us participate in the care of this patient. ??If you are a health care provider and have any questions regarding this report, please contact the number below. ??For patients who have questions please contact the health attending ambulatory care that requested your imaging first. ? Narrative 11/02/2023 12:52 AM EDT EXAMINATION: CT Abdomen and Pelvis w/o Contrast CLINICAL HISTORY: flank pain TECHNIQUE: Helical CT of the abdomen and pelvis without intravenous contrast. Oral contrast was not administered. Multiplanar reformatted images were generated. COMPARISON: None FINDINGS: The absence of intravenous contrast limits the evaluation of solid viscera and vasculature. Lower chest: Normal. Liver: Normal size and attenuation. Bile ducts: Nondilated. Gallbladder: Status post cholecystectomy. Pancreas: Normal attenuation. Spleen: Normal size. Adrenals: Normal. Right kidney/ureter: No collecting system dilation or calculi. Left kidney/ureter: No collecting system dilation or calculi. Urinary Bladder: No calculi. Vasculature: No abdominal aortic aneurysm. Lymph Nodes: No enlarged lymph nodes. Bowel: Nondilated, no wall thickening. ?? Evidence of prior appendectomy. Peritoneum and retroperitoneum: No free fluid or loculated fluid collection. No pneumoperitoneum. No mesenteric inflammation. Abdominal wall: Small fat-containing umbilical hernia. Reproductive organs: Normal contours. Osseous structures: No suspicious lesions. Procedure Note Hugh Jones MD - 11/02/2023 EXAMINATION: CT Abdomen and Pelvis w/o Contrast CLINICAL HISTORY: flank pain TECHNIQUE: Helical CT of the abdomen and pelvis without intravenouscontrast. Oral contrast was not administered. Multiplanar reformatted images were generated. COMPARISON: None FINDINGS: The absence of intravenous contrast limits the evaluation of solid visceraand vasculature. Lower chest: Normal. Liver: Normal size and attenuation. Bile ducts: Nondilated. Gallbladder: Status post cholecystectomy. Pancreas: Normal attenuation. Spleen: Normal size. Adrenals: Normal. Right kidney/ureter: No collecting system dilation or calculi. Left kidney/ureter: No collecting system dilation or calculi. Urinary Bladder: No calculi. Vasculature: No abdominal aortic aneurysm. Lymph Nodes: No enlarged lymph nodes. Bowel: Nondilated, no wall thickening. Evidence of prior appendectomy. Peritoneum and retroperitoneum: No free fluid or loculated fluidcollection. No pneumoperitoneum. No mesenteric inflammation. Abdominal wall: Small fat-containing umbilical hernia. Reproductive organs: Normal contours. Osseous structures: No suspicious lesions. IMPRESSION No hydronephrosis or urolithiasis. Thank you for letting us participate in the care of this patient. If youare a health care provider and have any questions regarding this report,please contact the number below. For patients who have questions please contactthe health attending ambulatory care that requested your imaging first. Ever Irwin MD IMG CT ORDERABL ES * XR Chest One View (11/02/2023 12:34 AM EDT) PT CLASS E RAD ADMITDTTM [id number] RAD PT RAD INFO [id number]^Findle y^Ever^Xiomy d RAD EXAM DESC XCXR1^XR Chest 1 View^RIS [facility] WORKSTATION ID [id number] [facility] Anatomical Region Laterality Modality Chest N/A [...] who have questions please contact the health attending ambulatory care that requested your imaging first. ? Electronically signed by: Esteban Sweeney MD, [facility] ([phone]), at 11/02/2023 12:52 AM Narrative 11/02/2023 12:52 AM EDT EXAMINATION: XR [...] patients who have questions please contactthe health attending ambulatory care that requested your imaging first. Electronically signed by: Esteban Sweeney MD, [facility]([phone]), at 11/02/2023 12:52 AM Ever Irwin MD IMG DX ORDERABL ES * XR Hand Min 3 views Right (Generic) (10/30/2023 12:44 PM EDT) PT CLASS E RAD ADMITDTTM [id number] RAD PT [facility] INFO [id number]^Mendezle y^Ever^Xiomy d RAD EXAM DESC [id number]^XR Hand Complete 3+ Views Right^RIS [facility] WORKSTATION ID [id number] RAD Anatomical Region Laterality Modality Hand Right Radiographic Bianca ging 10/30/2023 12:4 4 PM EDT Impressions 10/30/2023 1:09 PM EDT No acute fracture. Thank you for letting us participate in the care of this patient. ??If you are a health care provider and have any questions regarding this report, please contact the number below. ??For patients who have questions please contact the health attending ambulatory care that requested your imaging first. ? Electronically signed by: Mila Shelby MD, [facility] ([phone]), at 10/30/2023 1:09 PM Narrative 10/30/2023 1:09 PM EDT EXAMINATION: XR Hand Complete 3+ Views Right CLINICAL HISTORY: pain MCP joints after blunt trauma TECHNIQUE: 3 views of the right hand COMPARISON: None FINDINGS: No acute fracture or dislocation. Joint spaces and alignment are preserved. No osseous erosions or periostitis. No radiopaque foreign body. Procedure Note Mila Shelby MD - 10/30/2023 EXAMINATION: XR Hand Complete 3+ Views Right CLINICAL HISTORY: pain MCP joints after blunt trauma TECHNIQUE: 3 views of the right hand COMPARISON: None FINDINGS: No acute fracture or dislocation. Joint spaces and alignment arepreserved. No osseous erosions or periostitis. No radiopaque foreign body. IMPRESSION No acute fracture. Thank you for letting us participate in the care of this patient. If youare a health care provider and have any questions regarding this report,please contact the number below. For patients who have questions please contactthe health attending ambulatory care that requested your imaging first. Ever Irwin MD IMG DX ORDERABL ES from Last 3 Months Care Teams Conference Assistant Relationship Specialty Start Date End Date None None PCP - General 02/21/22
--- OUTSIDE RECORDS SUMMARY | 2023-12-09 09:06 | XMS_ITS | Encounter Summary ---
[place] [address] Care Team Providers Care Relay Operator Name Role Phone None Primary Care Provider Unavailabl e Reason for Visit * Auth/Cert (Routine) Specialty Diagnoses / Procedures Referred By Conner t Referred To Contact Diagnoses stent maintainence Procedures PRO ERCP,DIAGNOSTIC ERCP Bijan Felipe MD [facility] [place] [address] [facility] Referral ID Status Reason Start Date Expiration Date Visits Re quested Visits Authorized [id number] 1 1 Encounter Details Date Type Department Care Team (Late st Contact Info) Description 06/10/2022 4:45 PM EST Ancillary [place] [address] Social History Tobacco Use Types Packs/Day Years [...] Date/Time Associated Diagnosis Comments XR ERCP Routine 06/10/2022 5:38 PM EST documented in this encounter Results * XR ERCP (06/10/2022 5:38 PM EST) Narrative [facility] - 06/10/2022 5:39 PM EST See PACS for result report. Biajn Felipe MD IMG FILM LIBRARY ORD ERABLES Performing Organization Address City/State/[facility] Co de Phone Number [place], [place] documented in this encounter Visit Diagnoses Not on filedocumented in this encounter Care Teams Relay Operator Relationship Specialty Start Date End Date None None PCP - General 02/21/22 documented as of this encounter
--- OUTSIDE RECORDS SUMMARY | 2023-12-09 09:06 | XMS_ITS | Encounter Summary ---
Author Organization [facility] [place] [address] Care Team Providers Care Cyber Defense Forensics Analyst Name Role Phone None Primary Care Provider Unavailabl e Encounter Details Date Type Department Care Team (Late st Contact Info) Description 11/02/2023 Interpretation Only [address] [address] Ever Irwin MD [address] [place] [address] Social History Tobacco Use Types Packs/Day Years [...] WO CONTRAST STAT 11/02/2023 12:38 AM EDT documented in this encounter Results * CT Abdomen & Pelvis wo Contrast (11/02/2023 12:38 AM EDT) PT CLASS E [facility] ADMITDTTM [id number] [facility] PT RAD INFO [id number]^Findle y^Christopher^Xiomy d [facility] EXAM DESC CTAPWO^CT Abdomen and Pelvis w/o Contrast^RIS [facility] WORKSTATION ID [id number] [facility] Anatomical Region Laterality Modality Abdomen, [...] who have questions please contact the health career portals teacher that requested your imaging first. ? Electronically signed by: Hugh Jones MD, [facility] ([phone]), at 11/02/2023 12:52 AM Narrative 11/02/2023 12:52 AM EDT EXAMINATION: CT [...] patients who have questions please contactthe health career portals teacher that requested your imaging first. Electronically signed by: Hugh Jones MD, [facility]([phone]), at 11/02/2023 12:52 AM Ever Irwin MD IMG CT ORDERABL ES documented in this encounter Visit Diagnoses Not on filedocumented in this encounter Care Teams Cyber Defense Forensics Analyst Relationship Specialty Start Date End Date None None PCP - General 02/21/22 documented as of this encounter
--- OUTSIDE RECORDS SUMMARY | 2023-12-09 09:06 | XMS_ITS | Encounter Summary ---
Author Organization [facility] [place] [address] Care Team Providers Care Garment Turner Name Role Phone None Primary Care Provider Unavailabl e Encounter Details Date Type Department Care Team (Late st Contact Info) Description 10/30/2023 Interpretation Only [address] [phone] Ever Irwin MD [address] [place] [address] Social History Tobacco Use Types Packs/Day Years [...] Name Priority Date/Time Associated Diagnosis Comments XR HAND MIN 3 VIEWS RIGHT STAT 10/30/2023 12:44 PM EDT documented in this encounter Results * XR Hand Min 3 views Right (Generic) (10/30/2023 12:44 PM EDT) PT CLASS E RAD ADMITDTTM [id number] RAD PT RAD INFO [id number]^Findle y^Junoer^Xiomy d RAD EXAM DESC [id number]^XR Hand Complete 3+ Views Right^RIS [facility] WORKSTATION ID [id number] [facility] Anatomical Region Laterality Modality Hand Right Radiographic Bianca ging 10/30/2023 12:4 4 PM EDT Impressions 10/30/2023 1:09 PM EDT No acute fracture. Thank you for letting us participate in the care of this patient. ??If you are a health care provider and have any questions regarding this report, please contact the number below. ??For patients who have questions please contact the health primary care md that requested your imaging first. ? Narrative 10/30/2023 1:09 PM EDT EXAMINATION: XR [...] patients who have questions please contactthe health primary care md that requested your imaging first. Ever Irwin MD IMG DX ORDERABL ES documented in this encounter Visit Diagnoses Not on filedocumented in this encounter Care Teams Garment Turner Relationship Specialty Start Date End Date None None PCP - General 02/21/22 documented as of this encounter
--- OUTSIDE RECORDS SUMMARY | 2023-12-09 09:06 | XMS_ITS | Encounter Summary ---
[facility] [place] [address] Care Team Providers Care Whipped Topping Supervisor Name Role Phone None Primary Care Provider Unavailabl e Reason for Visit * Auth/Cert (Routine) Specialty Diagnoses / Procedures Referred By Controsana t Referred To Contact Diagnoses stent maintainence Procedures PRO ERCP,DIAGNOSTIC ERCP Bijan Felipe MD [facility] [place] [address] [facility] Referral ID Status Reason Start Date Expiration Date Visits Re quested Visits Authorized [id number] 1 1 Encounter Details Date Type Department Care Team (Late st Contact Info) Description 06/10/2022 3:45 PM EST - 06/10/2022 5:00 PM EST Surgery [place] [address] Bijan Felipe MD [facility] [place] [address] ERCP, W REMOVAL& EXCHANGE STENT, BILIARY/PANCREATIC DUCT [...] Sign Reading Time Taken Comments Blood Pressure 114/74 06/10/2022 3:05 PM EST Pulse 68 06/10/2022 3:02 PM EST Temperature 36.9 ??C (98.5 ??F) 06/10/2022 3:02 PM ES T Respiratory Rate - - Oxygen Saturation 99% 06/10/2022 3:02 PM EST Inhaled Oxygen Concentration - - Weight 66.7 kg (147 lb) 06/10/2022 3:05 PM EST Height - - Body Mass Index 26.04 02/21/2022 12:32 PM EST documented in this encounter Discharge Instructions * Discharge Instructions* Kimmie Powers RN - 06/10/2022 5:50 PM EST Endoscopic Retrograde Cholangiopancreatogram (ERCP): What to Expect [...] the day after the procedure, use an mlhj-ivn-vkmhuzo spray to numb your throat. Sucking on [...] occurs, please contact your Doctor. Please call [phone] before 8pm Mon-Fri with problems, questions or concerns. If you call after 8pm or on weekends, call the Hospital at [phone] and ask to speak to the Economist Research Assistant instruction assistant principal and the duplicator punch set up operator will contact that person for you. When should you call for help? Call [phone] anytime you think you may need emergency [...] problems, like Where can you learn more? [email or web address] View your After Visit Summary and more online at [email or web address] If you would like to provide feedback about your hospital experience, please call the Office of Patient and Family Relations at . If you have received this After Visit Summary in error, please immediately return it in person to the department, or notify the [facility] Privacy Office by calling toll free at between the hours of 8AM and 5PM to arrange for our retrieval of the documents at no cost to you. Content Version: 12.2 ?? [id number] [email or web address]. Care instructions adapted under license by [facility]. If you have questions about a medical condition or this instruction, always ask your healthcare professional. [email or web address] disclaims any warranty or liability for your [...] spacing device ([employer]) Spacer by [facility].(Non-Drug; Combo Route) route. As directed. May substitute aerochamber. 2 each 1 02/02/2018 documented as of this encounter H&P Notes * Bijan Felipe MD - 06/10/2022 4:49 PM EST Gastroenterology and Hepatology Pre-Procedure History and Physical Exam Procedure: ERCP: Indication: S/p bile duct injury (CBD) during cholecystectomy 03/05 treated with internal stent-nowfor stent removal or exchange. Has been fairly well since and external drains removed but does haveintermittent RUQ pain. Patient Active Problem List Diagnosis Code ??? [...] patient. Consent signed. documented in this encounter Miscellaneous Notes * Op Note - Bijan Felipe MD - 06/10/2022 5:12 PM EST [facility] Operative Note Patient Name: Lawanda Mcdaniel : [id number] MR#: [id number] Case Date: 06/10/2022 Surgeon: Surgeon(s) and Role: * Bijan Felipe MD - Primary Preoperative diagnosis: stent maintainence Postoperative diagnosis: * No post-op diagnosis entered * Procedure(s) (LRB): ERCP, W REMOVAL& EXCHANGE STENT, BILIARY/PANCREATIC DUCT (N/A) CHOLANGIOGRAM Anesthesia: General Full procedure note is documented under the Procedure section of [facility]. documented in this encounter Plan of Treatment Scheduled Orders Name Type Priority Associated Diagnoses Orde r Schedule ENDOSCOPY CASE REQUEST: ERCP Procedures Routine Bile duct stricture Ordered: 06/10/2022 documented as of this encounter Procedures Procedure Name Priority Date/Time Associated Diagnosis Comments XR ERCP Routine 06/10/2022 5:38 PM EST CHOLANGIOGRAM 06/10/2022 4:56 PM EST stent maintainence Ercp Biliary Or Pancreatic Duct Stent Removal & Exchange W/Dil&Wire(97090) 06/10/2022 4:56 PM EST stent maintainence ERCP Routine 06/10/2022 4:50 PM EST documented in this encounter Results * XR ERCP (06/10/2022 5:38 PM EST) Narrative [facility] - 06/10/2022 5:39 PM EST See PACS for result report. Bijan Felipe MD IMG FILM LIBRARY ORD ERABLES FRED Montanez * ERCP (06/10/2022 4:50 PM EST) ERCP [facility] Endoscopy Procedure Date: 06/10/2022 4:50 PM ? Patient Name: Lawanda Mcdaniel ? Date of : 2000 ? Age: 21 ? Order #: [id number] ? Instrument Name: [id number] ? Procedure: ? ERCP Indications: ? Follow-up of bile leak, Stent change Providers: ? Bijan Felipe MD, Stephan Figueroa ? , VALDEMAR, Nova Guaman, ? Nurse Practitioner Per Diem Referring MD: ?Dayanna Peters MD, Andrade Mendenhall Medicines: ? General Anesthesia, Indomethacin ? 100 mg MA Complications: ? No immediate complications. Procedure: ? [...] A biliary stent was visible on the lepidopterist film ? adjacent to surgical clips. The esophagus was ? successfully intubated under direct vision. The scope ? was advanced to a normal major papilla in the ? descending duodenum without detailed examination of ? the pharynx, larynx and associated structures, and ? upper GI tract. The upper GI tract was grossly ? normal. One plastic stent was removed from the ? biliary tree using a snare. The bile duct was then ? deeply cannulated with the 11.5 mm balloon and ? guidewire. Contrast was injected. I personally ? interpreted the bile duct images. There was brisk ? flow of contrast through the ducts. Image quality was ? excellent. Contrast extended to the hepatic ducts. ? Opacification of the entire biliary tree except for ? the cystic duct and gallbladder was successful. The ? maximum diameter of the ducts was 6 mm. The middle ? third of the main bile duct contained a single mild ? localized stenosis 3 mm in length adjacent to ? surgical clips. There was no evidence for persistent ? bile leak. The biliary tree was swept with an 8.5 mm ? balloon starting at the bifurcation with mild ? resistance across the stenosis in mid-duct. Dilation ? of the mid common bile duct stenosis with a 6 mm ? balloon dilator was successful. Two 10 Fr by 9 cm ? plastic and 10 Fr by 7 cm stents with a single ? external flap and a single internal flap were placed ? nsaf-ha-hdbi into the common bile duct across the ? stenosis. Bile flowed through the stents. The stents ? were in good position. The pancreatic duct was not ? accessed. ? Moderate Sedation: ? Not applicable - See Anesthesia documentation Impression: ?- A single mild localized biliary ? stricture was found in the middle ? third of the main bile duct at site ? of known bile duct injury without ? ongoing leak and markedly improved ? in caliber compared to previous ? ERCP. ? - One stent was removed from the ? biliary tree. ? - The biliary tree was swept with ? mild resistance across the stenosis ? so it was balloon dilated to 6 mm ? followed by zecu-kb-yfin 10 Fr ? stent placement across the mild ? stenosis. Recommendation: ?- Observe patient's clinical course. ? - Repeat ERCP in 3-4 months to ? remove or exchange stents. ? Attending Participation: ? I personally performed the entire procedure. ? Bijan Felipe MD 06/10/2022 6:01:35 PM This report has been signed electronically. Number of Addenda: 0 Note Initiated On: 06/10/2022 4:50 PM PROVATION 06/10/2022 4:50 PM EST Dayanna Peters MD GENERAL SURGICAL ORD ERABLES PROVATION documented in this encounter Visit Diagnoses Not on filedocumented in this encounter Administered Medications Inactive Administered Medications - up to 3 most recent administrations Medication Order MAR Action Action Date Dose Rate Site lactated ringers infusion 100 mL/hr, Intravenous, CONTINUOUS, Starting on Fri06/10/22 at 1515, Until Fri06/10/22 at 1824, Endoscopy (Day of Procedure) New Bag 06/10/2022 3:11 PM EST 100 mL/hr 100 mL/hr documented in this encounter Active and Recently Administered Medications Times are shown in EST. Continuous Medication Order 06/08/2022 06/09/2022 06/10/2022 lactated ringers infusion (CANCELED) 100 mL/hr, Intravenous, CONTINUOUS, Starting on Fri06/10/22 at 1515, Until Fri06/10/22 at 1824, Endoscopy (Day of Procedure) 1511 (New Bag - Prov ider: Halle Lorenzo RN) documented in this encounter Care Teams Whipped Topping Supervisor Relationship Specialty Start Date End Date None None PCP - General 02/21/22 documented as of this encounter
--- OUTSIDE RECORDS SUMMARY | 2023-12-09 09:07 | XMS_ITS | Encounter Summary ---
Author Organization [facility] Address [address] [place] [address] Care Team Providers Care Mask Design Engineer Name Role Phone Brian Santos MD Primary Care Provider [phone] Reason for Visit * Reason Comments Pharyngitis Pt presents to ed wi th c/o sore throat for three days and now has a stuffy nose. Pt reports cough but no nausea or vomiting. Pt took covid test yesterday and was negative. Pt reports when she swallows that her throat hurts and it paul. Pt reports pressure in sinus. Pt reports difficulty swallowing as well. Encounter Details Date Type Department Care Team (Late st Contact Info) Description 11/14/2022 18:04 EDT - 11/14/2022 18:42 EDT Emergency [facility] Emergency Department [address], [place] [id number] Rancho Mills MD [address] [place] [address] Pharyngitis, unspecified etiology (Primary Dx) Discharge Disposition: Home or Self Care Social History Tobacco Use Types Packs/Day Years Used Date Smoking Tobacco: Every Day Cigarettes Smokeless Tobacco: Never Tobacco Cessation:Ready to Q uit: No; Counseling Given: No Comments:Vaoes Alcohol Use Standard Drinks/Week Comments Yes 0 (1 standard drink = 0.6 oz pur e alcohol) Rare Interpersonal Safety Answer Date Record ed Physically Hurt Never 11/14/2019 Verbally Threaten Not on file 11/14/2019 Sex and Gender Information Value Date Recorded Sex Assigned at Not on file Gender Identity Not on file Sexual Orientation Not on file COVID-19 Exposure Response Date Recorded In the last 10 days, have ted ferrara been in contact with someone who was confirmed or suspected to have Coronavirus/COVID-19? No / Unsure 11/14/2022 17:59 EDT documented as of this encounter Last Filed Vital Signs Vital Sign Reading Time Taken Comments Blood Pressure 139/76 11/14/2022 1755 EDT Pulse 105 11/14/2022 1755 EDT Temperature 36.5 ??C (97.7 ??F) 11/14/2022 1755 EDT Respiratory Rate 16 11/14/2022 1755 EDT Oxygen Saturation 99% 11/14/2022 1755 EDT Inhaled Oxygen Concentration - - Weight 65.8 kg (145 lb) 11/14/2022 1755 EDT Height 160 cm (5' 3) 11/14/2022 1755 EDT Body Mass Index 25.69 11/14/2022 1755 EDT documented in this encounter Functional Status Functional Status Response Date of Assess ment Are you deaf or do you have serious difficulty h earing? No 11/14/2022 documented as of this encounter Discharge Instructions * Discharge Instructions* Rancho Mills MD - 11/14/2022 18:36 EDT [facility] Emergency Department Discharge Instructions Diagnosis: Sore throat. This is likely due to a virus that will resolve on its own over the next several days For pain you can take: Ibuprofen (also known as advil or motrin) 400-600mg Acetaminophen (known as Tylenol) 650mg You can alternate these every 3 hours or take them together every 6 hours. We sent a culture of your throat and if this returns with evidence of strep then we will call in a prescription for antibiotics for you Follow up: With your primary care provider as needed Return Precautions: If you have significant worsening of your symptoms especially significant worsening trouble breathing, pain, or other symptoms that are particularly concerning to you please return to the emergency room for reevaluation. * Attachments The following attachments cannot be sent through Care Everywhere. * Sore Throat ([place]guill[place]) documented in this encounter Medications at Time of Discharge Medication Sig Dispensed Refills Start Date End Date valACYclovir (VALTREX) 500 mg tablet Take 2 Tablets by mouth daily. documented as of this encounter Discharge Disposition Disposition Code Departure Means Destination Comment s Home or Self Fpc documented in this encounter ED Notes * Rancho Mills MD - 11/14/2022 1842 EDT Emergency Department Visit Medical Decision Making Laboratory data was reviewed. Medical Decision Making Pharyngitis, unspecified etiology: complicated acute illness or injury Amount and/or Complexity of Data Reviewed Labs: ordered. Risk OTC drugs. Prescription drug management. 22-year-old female presents for pharyngitis. Well-appearing on exam. No asymmetric tonsillar hypertrophy. No exudates noted on exam. No peritonsillar bulging or swelling. Suspicion for deep space infection is low. Strep culture will be sent. Discussed symptomatic care instructions with return precautions Final diagnoses: Pharyngitis, unspecified etiology Disposition: Discharged Chief complaint: Sore throat HPI Lawanda Mcdaniel is a 22 y.o. female with minimal significant past medical who presents to the ED for sore throat. Symptoms of been ongoing now for couple of days, worsening pain with swallowing. No difficulty breathing. No chest pain. Patient's pertinent PMH, FH, SH were reviewed and edited as necessary. Nursing notes reviewed. A medical screening exam was performed. Physical Exam BP 139/76 Pulse 105 Temp 36.5 ??C (97.7 ??F) (Temporal) Resp 16 Ht 160 cm (63) Wt 65.8 kg (145 lb) SpO2 99% BMI 25.69 kg/m?? Physical Exam Vitals and nursing note reviewed. Constitutional: General: She is not in acute distress. Appearance: She is well-developed. HENT: Head: Normocephalic and atraumatic. Eyes: General: Right eye: No discharge. Left eye: No discharge. Conjunctiva/sclera: Conjunctivae normal. Pupils: Pupils are equal, round, and reactive to light. Neck: Trachea: No tracheal deviation. Comments: Full range of motion. Mild tender cervical adenopathy anteriorly. No trismus. Posterior oropharynx with some erythema and perhaps slightly enlarged tonsils though not significant. No tonsillar exudate. Uvula is midline. No peritonsillar swelling Musculoskeletal: General: Normal range of motion. Cervical back: Normal range of motion. Skin: General: Skin is warm. Findings: No rash. Neurological: Mental Status: She is alert and oriented to person, place, and time. Motor: No abnormal muscle tone. Procedures Procedures documented in this encounter Plan of Treatment Not on file documented as of this encounter Procedures Procedure Name Priority Date/Time Associated Diagnosis Comments GROUP A STREP CULTURE Routine 11/14/2022 18:37 EDT POCT RAPID STREP SCREEN STAT 11/14/2022 18:17 EDT documented in this encounter Results * GROUP A STREP CULTURE (11/14/2022 18:37 EDT) Organism ID No Group A Beta Hemolytic Streptococcus isolated 11/16/2022 11:28 EDT [facility] Swab ORAL / Unknown Swab / Unknown 11/14/2022 18:37 EDT 11/14/2022 18:47 EDT Rancho Mills MD MICROBIOLOGY - GENER AL ORDERABLES [facility] [address] [place] [address] * POCT RAPID STREP SCREEN (11/14/2022 18:17 EDT) Rapid Strep Test, POC Negative Negative Background Clear? Yes Control Line Present Yes Rgt A + Rgt B= Yellow: Yes Culture Sent to Lab? No Swab ENTIRE PHARYNX / Unknown 11/14/2022 18:17 EDT Rancho Mills MD POINT OF CARE TEST O RDERABLES documented in this encounter Visit Diagnoses Diagnosis Pharyngitis, unspecified etiology- Primary documented in this encounter Administered Medications Inactive Administered Medications - up to 3 most recent administrations Medication Order MAR Action Action Date Dose Rate Site acetaminophen (TYLENOL) tablet 650 mg 650 mg, oral, NOW X1, 1 dose, On [place] 11/14/22 at 1900, Routine Given 11/14/2022 18:40 EDT 650 mg ibuprofen (MOTRIN) tablet 400 mg 400 mg, oral, NOW X1, 1 dose, On [place] 11/14/22 at 1900, Routine Given 11/14/2022 18:40 EDT 400 mg documented in this encounter Historical Medications * This list may reflect changes made after this encounter. Medication Sig Dispensed Refills Start Date End Date valACYclovir (VALTREX) 500 mg tablet Take 2 Tablets by mouth daily. added in this encounter Active and Recently Administered Medications Times are shown in EDT. Scheduled Medication Order 11/12/2022 11/13/2022 11/14/2022 acetaminophen (TYLENOL) tablet 650 mg (COMPLETED) 650 mg, oral, NOW X1, 1 dose, On [place] 11/14/22 at 1900, Routine 1840 (Given - Provid er: Yesica Barrientos RN) ibuprofen (MOTRIN) tablet 400 mg (COMPLETED) 400 mg, oral, NOW X1, 1 dose, On [place] 11/14/22 at 1900, Routine 1840 (Given - Provid er: Yesica Barrientos RN) documented in this encounter Care Teams Mask Design Engineer Relationship Specialty Start Date End Date Brian Santos MD [address] [place] [id number] PCP - General 02/23/15 documented as of this encounter
--- OUTSIDE RECORDS SUMMARY | 2023-12-09 09:07 | XMS_ITS | Encounter Summary ---
Author Organization [facility] Address [address] [place] [address] Care Team Providers Care Bushler Name Role Phone Brian Santos MD Primary Care Provider Encounter Details Date Type Department Care Team (Late st Contact Info) Description 01/07/2021 Lab Requisition [facility] Pathology & Laboratory Medicine - [address] [address] Outr Resulting Lab, Provider Social History Tobacco Use Types Packs/Day Years Used Date Smoking Tobacco: Never Assessed Interpersonal Safety Answer Date Record ed Physically Hurt Never 11/14/2019 Verbally Threaten Not on file 11/14/2019 Sex and Gender Information Value Date Recorded Sex Assigned at Not on file Gender Identity Not on file Sexual Orientation Not on file documented as of this encounter Plan of Treatment Not on file documented as of this encounter Procedures Procedure Name Priority Date/Time Associated Diagnosis Comments DO NOT ORDER STANDALONE - MARK COVID TESTING Today 01/06/2021 17:45 EDT COVID-19 TESTING Routine 01/06/2021 17:4 5 EDT documented in this encounter Results * DO NOT ORDER STANDALONE - MARK COVID TESTING (01/06/2021 17:45 EDT) COVID-19 rt-PCR Result Not Detected Not Detected 01/08/2021 18:43 EDT [facility] Comment: This test has not been FDA cleared or approved. This test has been authorized by FDA under an EUA for use by authorized laboratories. ??This test has been authorized only for the detection of nucleic acid from SARS-CoV-2, not for any other viruses or pathogens. ??This test is only authorized for the duration of the declaration that circumstances exist justifying the authorization of emergency use of in vitro diagnostic tests for detection and/or diagnosis of COVID-19 under Section 564(b)(1) of the Act, 21 U.S.C. Section 360bbb-3(b)(1), unless the authorization is terminated or revoked sooner. ??Factsheets for healthcare providers: ??https://www.fda.gov/media/089314/download Factsheets for patients: https://www.fda.gov/media/686819/download Negative results do not preclude infection with SARS-CoV-2 virus, and should not be the sole basis of a patient management decision. Swab ENTIRE NASOPHARYNX / Unknown 01/06/2021 17:45 EDT 01/07/2021 15:52 EDT Provider Outr Resulting Lab MICROBIOLOGY - GENERAL ORDERABLES [facility] [address] [place] [address] * COVID-19 TESTING (01/06/2021 17:45 EDT) COVID-19 rt-PCR Result Not Detected Not Detected 01/08/2021 18:52 EDT [facility] Comment: This test has not been FDA cleared or approved. This test has been authorized by FDA under an EUA for use by authorized laboratories. ??This test has been authorized only for the detection of nucleic acid from SARS-CoV-2, not for any other viruses or pathogens. ??This test is only authorized for the duration of the declaration that circumstances exist justifying the authorization of emergency use of in vitro diagnostic tests for detection and/or diagnosis of COVID-19 under Section 564(b)(1) of the Act, 21 U.S.C. Section 360bbb-3(b)(1), unless the authorization is terminated or revoked sooner. ??Factsheets for healthcare providers: ??https://www.fda.gov/media/734804/download Factsheets for patients: https://www.fda.gov/media/117207/download Negative results do not preclude infection with SARS-CoV-2 virus, and should not be the sole basis of a patient management decision. Performing Lab [facility] 01/08/2021 18:52 EDT [facility] Swab 01/06/2021 17:4 5 EDT 01/07/2021 15:52 EDT Provider Outr Resulting Lab MICROBIOLOGY - GENERAL ORDERABLES [facility] [address] LABORATORY [address] [place] [address] documented in this encounter Visit Diagnoses Not on filedocumented in this encounter Additional Health Concerns Infection Onset Date Last Indicated Resolved Time COVID-19 10/09/2021 10/09/2021 10/29/2021 22:1 5 EDT documented as of this encounter Care Teams Bushler Relationship Specialty Start Date End Date Brian Santos MD [address] [place] [id number] PCP - General 02/23/15 documented as of this encounter
--- OUTSIDE RECORDS SUMMARY | 2023-12-09 09:07 | XMS_ITS | Encounter Summary ---
Author Organization [facility] Address [address] [place] [address] Care Team Providers Care Superintendent Sales Name Role Phone Brian Santos MD Primary Care Provider [phone] Encounter Details Date Type Department Care Team (Late st Contact Info) Description 12/03/2021 Lab Requisition [facility] Pathology & Laboratory Medicine - [facility] [address] [place] [address] Outr Resulting Lab, Provider Social History Tobacco [...] Procedure Name Priority Date/Time Associated Diagnosis Comments ZZCOVID-19 TEST [facility] PCR Today 12/03/2021 11:21 EDT COVID-19 TESTING Routine 12/03/2021 11:2 1 EDT documented in this encounter Results * COVID-19 TEST [facility] PCR (12/03/2021 11:21 EDT) Swab 12/03/2021 11:2 1 EDT 12/04/2021 16:46 EDT Provider Outr Resulting Lab MICROBIOLOGY - GENERAL ORDERABLES [facility] [address] [place] [address] * COVID-19 TESTING (12/03/2021 11:21 EDT) COVID-19 rt-PCR Result Negative Negative 12/05/2021 14:23 EDT [facility] Comment: This test has not been FDA cleared or approved. This test has been authorized by FDA under an EUA for use by authorized laboratories. This test has been authorized only for detection of nucleic acid from 2019-nCoV, not for any other viruses or pathogens. This test is only authorized for the duration of the declaration that circumstances exist justifying the authorization of emergency use of in vitro diagnostic tests for detection and/or diagnosis of 2019-nCoV under section 564(b)(1) of Act, 21 U.S.C ?? 360bbb-3(b) (1), unless the authorization is terminated or revoked sooner. Negative results do not preclude 2019-nCoV infection and should not be used as the sole basis for treatment or other patient management decisions. Negative results must be combined with clinical observations, patient history, and epidemiological information. Testing was performed using the german SARS-CoV-2 assay ([employer] on the German 6800 System Performing Lab German 6800 [facility] Lab 12/05/2021 14:23 EDT [facility] Swab 12/03/2021 11:2 1 EDT 12/04/2021 16:46 EDT Provider Outr Resulting Lab MICROBIOLOGY - GENERAL ORDERABLES [facility] [address] [place] [address] documented in this encounter Visit Diagnoses Not on filedocumented in this encounter Care Teams Superintendent Sales Relationship Specialty Start Date End Date [place] [address] PCP - General 02/23/15 documented as of this encounter
--- OUTSIDE RECORDS SUMMARY | 2023-12-09 09:07 | XMS_ITS | Encounter Summary ---
Author Organization [facility] Address [address] [place] [address] Care Team Providers Care Hammer Repairer Name Role Phone Brian Santos MD Primary Care Provider [phone] Encounter Details Date Type Department Care Team (Late st Contact Info) Description 02/20/2021 Lab Requisition [facility] Pathology & Laboratory Medicine - [address] [phone] Outr Resulting Lab, Provider Social History Tobacco [...] Procedure Name Priority Date/Time Associated Diagnosis Comments CHLAMYDIA/N. GONORRHOEAE AMPLIFIED NUCLEIC ACID Routine 02/19/2021 13:15 EST documented in this encounter Results * CHLAMYDIA/N. GONORRHOEAE AMPLIFIED RNA (02/19/2021 13:15 EST) Neisseria gonorrhoeae Result Negative Negative 02/21/2021 15:43 EST [facility] Chlamydia trachomatis Result Negative Negative 02/21/2021 15:43 EST [facility] Swab ENTIRE WALL OF CERVIX / Unknown 02/19/2021 13:15 EST 02/20/2021 22:23 EST Provider Outr Resulting Lab MICROBIOLOGY - GENERAL ORDERABLES [facility] [address] [place] [address] documented in this encounter Visit Diagnoses Not on filedocumented in this encounter Additional Health Concerns Infection Onset Date Last Indicated Resolved Time COVID-19 10/09/2021 10/09/2021 10/29/2021 22:1 5 EDT documented as of this encounter Care Teams Hammer Repairer Relationship Specialty Start Date End Date Brian Santos MD [address] [place] [address] PCP - General 02/23/15 documented as of this encounter
--- OUTSIDE RECORDS SUMMARY | 2023-12-09 09:07 | XMS_ITS | Encounter Summary ---
Author Organization [facility] Address [address] [place] [address] Care Team Providers Care Marketing Regional Consultant Name Role Phone Brian Santos MD Primary Care Provider [phone] Encounter Details Date Type Department Care Team (Late st Contact Info) Description 03/12/2021 Lab Requisition [facility] Pathology & Laboratory Medicine - [address] [phone] Outr Resulting Lab, Provider Social History Tobacco [...] Procedure Name Priority Date/Time Associated Diagnosis Comments HIV 1/2 ANTIGEN AND ANTIBODY, 4TH GENERATION Routine 03/12/2021 11:00 EST documented in this encounter Results * HIV 1/2 ANTIGEN AND ANTIBODY, 4TH GENERATION (03/12/2021 11:00 EST) HIV 1 and 2 Antibody/p24 Antigen, 4th Generation Negative Negative 03/13/2021 11:[address] [facility] Comment:If acute HIV-1 infec tion is suspected in a high risk patient, submit plasma specimen for HIV-1 RNA quantitation test. Blood VENOUS BLOOD / Unknown 03/12/2021 11:00 EST 03/12/2021 15:57 EST [address]arr[address] [facility] - 03/13/2021 11:00 EST Fourth Generation assay performed on the Siemens Centaur XPT. Provider Outr Resulting Lab IMMUNOLOGY A ND SEROLOGY ORDERABLES [facility] [address] [place] [address] documented in this encounter Visit Diagnoses Not on filedocumented in this encounter Additional Health Concerns Infection Onset Date Last Indicated Resolved Time COVID-19 10/09/2021 10/09/2021 10/29/2021 22:1 5 EDT documented as of this encounter Care Teams Marketing Regional Consultant Relationship Specialty Start Date End Date Brian Santos MD [address] [place] [phone] PCP - General 02/23/15 documented as of this encounter
--- OUTSIDE RECORDS SUMMARY | 2023-12-09 09:07 | XMS_ITS | Encounter Summary ---
Author Organization [facility] Address [address] [place] [address] Care Team Providers Care Camp Boss Name Role Phone Brian Santos MD Primary Care Provider [phone] Encounter Details Date Type Department Care Team (Late st Contact Info) Description 01/11/2021 Lab Requisition [facility] Pathology & Laboratory Medicine - [address] [address] Outr Resulting Lab, Provider Social History Tobacco [...] Comments ZZCOVID-19 TEST [facility] PCR Today 01/10/2021 16:10 EDT COVID-19 TESTING Routine 01/10/2021 16:1 0 EDT documented in this encounter Results * COVID-19 TEST [facility] PCR (01/10/2021 16:10 EDT) Swab ENTIRE NASOPHARYNX / Unknown 01/10/2021 16:10 EDT 01/11/2021 15:52 EDT Provider Outr Resulting Lab MICROBIOLOGY - GENERAL ORDERABLES [facility] [address] [place] [address] * COVID-19 TESTING (01/10/2021 16:10 EDT) COVID-19 rt-PCR Result Negative Negative 01/12/2021 10:57 EDT [facility] Comment: This test has not [...] performed using the german SARS-CoV-2 assay ([employer] on the German 6800 System Performing Lab German 6800 [facility] Lab 01/12/2021 10:57 EDT [facility] Swab 01/10/2021 16:1 0 EDT 01/11/2021 15:52 EDT Provider Outr Resulting Lab MICROBIOLOGY - GENERAL ORDERABLES [facility] [address] [place] [address] documented in this encounter Visit Diagnoses Not on filedocumented in this encounter Additional Health Concerns Infection Onset Date Last Indicated Resolved Time COVID-19 10/09/2021 10/09/2021 10/29/2021 22:1 5 EDT documented as of this encounter Care Teams Camp Boss Relationship Specialty Start Date End Date Brian Santos MD [address] [place] [address] PCP - General 02/23/15 documented as of this encounter
--- OUTSIDE RECORDS SUMMARY | 2023-12-09 09:07 | XMS_ITS | Encounter Summary ---
Author Organization [facility] Address [address] [place] [address] Care Team Providers Care Medical Technologist Blood Bank Name Role Phone Brian Santos MD Primary Care Provider [phone] Encounter Details Date Type Department Care Team (Late st Contact Info) Description 12/01/2021 Lab Requisition [facility] Pathology & Laboratory Medicine - [address] [address] Outr Resulting Lab, Provider Social History Tobacco [...] Comments ZZCOVID-19 TEST [facility] PCR Today 11/30/2021 9:33 EDT COVID-19 TESTING Routine 11/30/2021 9:33 EDT documented in this encounter Results * COVID-19 TEST [facility] PCR (11/30/2021 9:33 EDT) Swab 11/30/2021 9:33 EDT 12/01/2021 21:48 EDT Provider Outr Resulting Lab MICROBIOLOGY - GENERAL ORDERABLES [facility] [address] [place] [address] * COVID-19 TESTING (11/30/2021 9:33 EDT) COVID-19 rt-PCR Result Negative Negative 12/02/2021 13:17 EDT [facility] Comment: This test has [...] clinical observations, patient history, and epidemiological information. Performed on the [employer] Fusion instrument Performing Lab [facility] Lab 12/02/2021 13:17 EDT [facility] Swab 11/30/2021 9:33 EDT 12/01/2021 21:48 EDT Provider Outr Resulting Lab MICROBIOLOGY - GENERAL ORDERABLES [facility] [address] [place] [address] documented in this encounter Visit Diagnoses Not on filedocumented in this encounter Care Teams Medical Technologist Blood Bank Relationship Specialty Start Date End Date Brian Santos MD [address] [place] [address] PCP - General 02/23/15 documented as of this encounter
--- OUTSIDE RECORDS SUMMARY | 2023-12-09 09:07 | XMS_ITS | Encounter Summary ---
Author Organization [facility] Address [address] [place] [address] Care Team Providers Care Varitypist Name Role Phone Brian Santos MD Primary Care Provider [phone] Encounter Details Date Type Department Care Team (Late st Contact Info) Description 08/03/2021 Lab Requisition [facility] Pathology & Laboratory Medicine - [address] [phone] Outr Resulting Lab, Provider Social History Tobacco [...] Procedure Name Priority Date/Time Associated Diagnosis Comments MONO-TEST Routine 08/02/2021 16:30 EDT documented in this encounter Results * (ABNORMAL) MONO-TEST (08/02/2021 16:30 EDT) Gooding Test Positive(A ) Negative 08/03/2021 17:40 EDT [facility] Blood VENOUS BLOOD / Unknown 08/02/2021 16:30 EDT 08/03/2021 17:08 EDT Provider Outr Resulting Lab CHEMISTRY & BLOOD GAS ORDERABLES [facility] [address] [place] [address] documented in this encounter Visit Diagnoses Not on filedocumented in this encounter Additional Health Concerns Infection Onset Date Last Indicated Resolved Time COVID-19 10/09/2021 10/09/2021 10/29/2021 22:1 5 EDT documented as of this encounter Care Teams Varitypist Relationship Specialty Start Date End Date Brian Santos MD [address] [place] [address] PCP - General 02/23/15 documented as of this encounter
--- OUTSIDE RECORDS SUMMARY | 2023-12-09 09:07 | XMS_ITS | Encounter Summary ---
Author Organization [facility] Address [address] [place] [address] Care Team Providers Care Rides Supervisor Name Role Phone Brian Santos MD Primary Care Provider [phone] Encounter Details Date Type Department Care Team (Late st Contact Info) Description 03/24/2023 Lab Requisition [facility] Pathology & Laboratory Medicine - [address] [address] Outr Resulting Lab, Provider Social History Tobacco Use Types Packs/Day Years Used Date Smoking Tobacco: Every Day Cigarettes Smokeless Tobacco: Never Comments:Vaoes Alcohol Use Standard Drinks/Week Comments Yes 0 (1 standard drink = 0.6 oz pur e alcohol) Rare Interpersonal Safety Answer Date Record ed Physically Hurt Never 11/14/2019 Verbally Threaten Not on file 11/14/2019 Sex and Gender Information Value Date Recorded Sex Assigned at Not on file Gender Identity Not on file Sexual Orientation Not on file documented as of this encounter Functional Status Functional Status Response Date of Assess ment Are you deaf or do you have serious difficulty h earing? No 11/14/2022 documented as of this encounter Plan of Treatment Not on file documented as of this encounter Procedures Procedure Name Priority Date/Time Associated Diagnosis Comments CHLAMYDIA/N. GONORRHOEAE AMPLIFIED NUCLEIC ACID Routine 03/22/2023 11:30 EST documented in this encounter Results * (ABNORMAL) CHLAMYDIA/N. GONORRHOEAE AMPLIFIED RNA (03/22/2023 11:30 EST) Neisseria gonorrhoeae Result Negative Negative 03/25/2023 15:19 EST [facility] Chlamydia trachomatis Result Positive(A) Negative 03/25/2023 15:19 EST [facility] Swab VAGINAL STRUCTURE / Unknown 03/22/2023 11:30 EST 03/24/2023 21:58 EST Provider Outr Resulting Lab MICROBIOLOGY - GENERAL ORDERABLES Performing Organization Address City/State/[facility] Co de Phone Number [facility] [address] [place] [address] documented in this encounter Visit Diagnoses Not on filedocumented in this encounter Care Teams Rides Supervisor Relationship Specialty Start Date End Date Brian Santos MD [address] [place] [address] PCP - General 02/23/15 documented as of this encounter
--- OUTSIDE RECORDS SUMMARY | 2023-12-09 09:07 | XMS_ITS | Encounter Summary ---
Author Organization [facility] [place] [address] Care Team Providers Care Health Coordinator Name Role Phone None Primary Care Provider Unavailabl e Encounter Details Date Type Department Care Team (Late st Contact Info) Description 05/28/2022 Telephone [place] [phone] Winston Phillip Social History Tobacco Use Types Packs/Day Years Used Date Smoking Tobacco: Never Smokeless Tobacco: Current Comments:vape pen Alcohol Use Standard Drinks/Week Comments Yes 1 (1 standard drink = 0.6 oz pur e alcohol) Sex and Gender Information Value Date Recorded Sex Assigned at Not on file Gender Identity Not on file Sexual Orientation Not on file documented as of this encounter Miscellaneous Notes * Telephone Encounter - Winston Phillip - 05/28/2022 12:32 PM EST Lawanda Lopes Jonas [id number] Diagnosis/Indication: stent Please review patient chart to confirm if [...] SCHEDULING QUESTIONS (ask all patient these questions) 1. Have you ever had a/an ERCP before? Yes: Date 02.21.22 If yes, did you have any problems with the procedure (such as waking up during the procedure, pain or difficulties afterwards, etc.)? No What type of sedation was used: General Anesthesia 2. Do you take any blood thinners or have you been diagnosed with a bleeding disorder that increases your risk of bleeding with procedures? No 3. Do you have a Pacemaker or Defibrillator device? If yes, send pool message to Cardiology with patient information and date or procedure. No 4. Are you a diabetic? If yes, call PCP/managing provider to discuss use of prep and any questions or concerns related to. No 5. Do you take any iron supplements or vitamins that contain iron? No 6. Do you have a preference regarding the gender of your provider? Yes Matteo ANESTHESIA QUESTIONS (YES to any question, please book with Anesthesia support) 7. Have you ever been diagnosed with Pulmonary Hypertension and/or Congential Heart Disease? No 8. Have you been diagnosed with A-Fib (atrial fibrillation) that is NOT being well controled with medications? No 9. Have you ever had an allergic or adverse reaction to Fentanyl or Versed? No 10. Have you had a problem with sedation or anesthesia? (Waking up during procedure, extreme confusion after, etc.) No 11. Do you have a diagnosis of Obstructive Sleep Apnea that requires the use of a c-pap machine? No 12. Do you use an oxygen tank at home? No 13. Do you use a rescue inhaler more than twice per day? (COPD, severe asthma) No 14. Do you experience breathing problems when you lay flat for a period of time? No 15. Do you take prescription narcotic pain medications, including suboxone or methodone? No SCHEDULING CONFIRMATIONS: Please note any and all parts of your conversation with the patient here. 16. We offer all new patients an opportunity to have an appointment with one of our associate care providers to learn more about your upcoming procedure, ask questions and get answers. These appointments are offered via telehealth. Would you be interested in scheduling this appointment? (Only ask if NEW referral patient; skip this question if [facility] GI provider ordered the procedure.) No 17. Is there any other information or concerns you would like to us to share with your care team inrelation to your upcoming scheduled procedure? No 18. You must have a responsible republican who will drive you to your procedure, stay on campus for the entire duration of your procedure, and drive you home from your procedure. Who will likely be your bus driver for the procedure? *Please Verify the height and weight, and adjust if height and/or weight have changed* Estimated body mass index is 24.8 kg/m?? as calculated from the following: Height as of 02/21/22: 160 cm (5' 3). Weight as of 02/21/22: 63.5 kg (140 lb). Age:21 y.o. documented in this encounter Plan of Treatment Not on file documented as of this encounter Visit Diagnoses Not on filedocumented in this encounter Care Teams Health Coordinator Relationship Specialty Start Date End Date None None PCP - General 02/21/22 documented as of this encounter
--- OUTSIDE RECORDS SUMMARY | 2023-12-09 09:07 | XMS_ITS | Encounter Summary ---
Author Organization [facility] Address [address] [place] [address] Care Team Providers Care Negotiator Name Role Phone Brian Santos MD Primary Care Provider [phone] Encounter Details Date Type Department Care Team (Late st Contact Info) Description 10/10/2021 Lab Requisition [facility] Pathology & Laboratory Medicine - [facility] [address] [place] [address] Outr Resulting Lab, Provider Social History Tobacco [...] Comments ZZCOVID-19 TEST [facility] PCR Today 10/09/2021 16:30 EDT COVID-19 TESTING Routine 10/09/2021 16:3 0 EDT documented in this encounter Results * COVID-19 TEST [facility] PCR (10/09/2021 16:30 EDT) Swab 10/09/2021 16:3 0 EDT 10/10/2021 17:24 EDT Provider Outr Resulting Lab MICROBIOLOGY - GENERAL ORDERABLES [facility] [address] [place] [address] * (ABNORMAL) COVID-19 TESTING (10/09/2021 16:30 EDT) COVID-19 rt-PCR Result Presumptive Positive(AA) Negative 10/11/2021 11:45 EDT [facility] Comment: Presumptive positive due to detection of Luciano-Sarbecovirus.?? Suggest recollection if clinically indicated This test has not been FDA cleared [...] the authorization is terminated or revoked sooner. Testing was performed using the german SARS-CoV-2 assay ([employer] on the German 6800 System Performing Lab German 6800 [facility] Lab 10/11/2021 11:45 EDT [facility] Swab 10/09/2021 16:3 0 EDT 10/10/2021 17:24 EDT Provider Outr Resulting Lab MICROBIOLOGY - GENERAL ORDERABLES [facility] [address] [place] [address] documented in this encounter Visit Diagnoses Not on filedocumented in this encounter Additional Health Concerns Infection Onset Date Last Indicated Resolved Time COVID-19 10/09/2021 10/09/2021 10/29/2021 22:1 5 EDT documented as of this encounter Care Teams Negotiator Relationship Specialty Start Date End Date Brian Santos MD [address] [place] [address] PCP - General 02/23/15 documented as of this encounter
--- OUTSIDE RECORDS SUMMARY | 2023-12-09 09:07 | XMS_ITS | Encounter Summary ---
Author Organization [facility] Address [address] [place] [address] Care Team Providers Care Plant Controller Name Role Phone Brian Santos MD Primary Care Provider [phone] Encounter Details Date Type Department Care Team (Late st Contact Info) Description 05/03/2021 Lab Requisition [facility] Pathology & Laboratory Medicine - [address] [phone] Outr Resulting Lab, Provider Social History Tobacco [...] Comments CHLAMYDIA/N. GONORRHOEAE AMPLIFIED NUCLEIC ACID Routine 05/02/2021 16:15 EST documented in this encounter Results * CHLAMYDIA/N. GONORRHOEAE AMPLIFIED RNA (05/02/2021 16:15 EST) Neisseria gonorrhoeae Result Negative Negative 05/04/2021 21:11 EST [facility] Chlamydia trachomatis Result Negative Negative 05/04/2021 21:11 EST [facility] Swab ENTIRE WALL OF CERVIX / Unknown 05/02/2021 16:15 EST 05/03/2021 18:41 EST Provider Outr Resulting Lab MICROBIOLOGY - GENERAL ORDERABLES [facility] [address] [place] [address] documented in this encounter Visit Diagnoses Not on filedocumented in this encounter Additional Health Concerns Infection Onset Date Last Indicated Resolved Time COVID-19 10/09/2021 10/09/2021 10/29/2021 22:1 5 EDT documented as of this encounter Care Teams Plant Controller Relationship Specialty Start Date End Date Brian Santos MD [address] [place] [phone] PCP - General 02/23/15 documented as of this encounter
--- OUTSIDE RECORDS SUMMARY | 2023-12-09 09:07 | XMS_ITS | Encounter Summary ---
Author Organization [facility] Address [address] [place] [address] Care Team Providers Care [facility]wife [facility] Owner Name Role Phone Brian Santos MD Primary Care Provider [phone] Encounter Details Date Type Department Care Team (Late st Contact Info) Description 10/30/2021 Lab Requisition [facility] Pathology & Laboratory Medicine - [address] [address] Outr Resulting Lab, Provider Social History Tobacco [...] Comments CHLAMYDIA/N. GONORRHOEAE AMPLIFIED NUCLEIC ACID Routine 10/29/2021 15:15 EDT documented in this encounter Results * CHLAMYDIA/N. GONORRHOEAE AMPLIFIED RNA (10/29/2021 15:15 EDT) Neisseria gonorrhoeae Result Negative Negative 10/31/2021 14:[address] [facility] Chlamydia trachomatis Result Negative Negative 10/31/2021 14:[address] [facility] Urine URINE / Unknown 10/29/2021 1 5:15 EDT 10/30/2021 17:[address] [facility] - 10/31/2021 14:29 EDT A first catch urine specimen is acceptable for detection of Gonorrhea and Chlamydia, but might detect up to 10% fewer infections when compared with vaginal and endocervical swab samples. Provider Outr Resulting Lab MICROBIOLOGY - GENERAL ORDERABLES [facility] [address] [place] [address] documented in this encounter Visit Diagnoses Not on filedocumented in this encounter Care Teams [facility] Owner Relationship Specialty Start Date End Date Brian Santos MD [address] [place] [phone] PCP - General 02/23/15 documented as of this encounter
--- OUTSIDE RECORDS SUMMARY | 2023-12-09 09:07 | XMS_ITS | Clinical Summary ---
Author Organization [facility] Address [address] [place] [address] Care Team Providers Care Director Print Name Role Phone Brian Santos MD Primary Care Provider [phone] Allergies Active Allergy Reactions Criticality Noted Date Comments Tetanus Vaccines And Toxoid Hives 11/15/19 23 Medications Medication Sig Dispensed Refills Start Date End Date Status valACYclovir (VALTREX) 500 mg tablet Take 2 Tablets by mouth daily. Active Social History Tobacco Use Types Packs/Day Years [...] on file Sexual Orientation Not on file Obstetrics History Last Filed Vital Signs Vital Sign Reading [...] Body Mass Index 25.69 11/14/2022 1755 EDT Plan of Treatment Health Maintenance Due Date Last Done Comments Hepatitis B Vaccine (1 + 3-dose series) 08/15/2019 COVID-19 Vaccine (24 season) 2022 Hepatitis C Screen Completed 03/22/2023, 03/12/2021 Procedures Procedure Name Priority Date/Time Associated Diagnosis Comments HEPATITIS C AB W REFLEX TO HCV RNA BY PCR Routine 03/22/2023 11:30 EST from Last 3 Months or Most Recently Relevant to Health Maintenance Results * HEPATITIS C AB W REFLEX TO HCV RNA BY PCR (03/22/2023 11:30 EST) Hep C Antibody Negative Negative 03/24/2023 23:34 EST [facility] Blood VENOUS BLOOD / Unknown 03/22/2023 11:30 EST 03/24/2023 21:59 EST Provider Outr Resulting Lab CHEMISTRY & BLOOD GAS ORDERABLES Performing Organization Address City/State/[facility] Co de Phone Number [facility] [address] [place] [address] from Last 3 Months or Most Recently Relevant to Health Maintenance Care Teams Director Print Relationship Specialty Start Date End Date Brian Santos MD [address] [place] [id number] PCP - General 02/23/15
--- OUTSIDE RECORDS SUMMARY | 2023-12-09 09:07 | XMS_ITS | Encounter Summary ---
Author Organization [facility] Address [address] [place] [address] Care Team Providers Care Ophthalmology Surgical Technician Name Role Phone Brian Santos MD Primary Care Provider [phone] Encounter Details Date Type Department Care Team (Late st Contact Info) Description 03/12/2021 Lab Requisition [facility] Pathology & Laboratory Medicine - [address] [id number] Outr Resulting Lab, Provider Social History Tobacco [...] REFLEX TO HCV RNA BY PCR Routine 03/12/2021 11:00 EST HEPATITIS B SURFACE ANTIGEN Routine 03/12/2021 11:00 EST documented in this encounter Results * HEPATITIS B SURFACE ANTIGEN (03/12/2021 11:00 EST) Hep B Surface Ag Negative Negative 03/13/2021 11:05 EST [facility] Blood VENOUS BLOOD / Unknown 03/12/2021 11:00 EST 03/12/2021 15:57 EST Provider Outr Resulting Lab CHEMISTRY & BLOOD GAS ORDERABLES [facility] [address] [place] [address] * HEPATITIS C AB W REFLEX TO HCV RNA BY PCR (03/12/2021 11:00 EST) Hep C Antibody Negative Negative 03/13/2021 11:08 EST [facility] Blood VENOUS BLOOD / Unknown 03/12/2021 11:00 EST 03/12/2021 15:57 EST Provider Outr Resulting Lab CHEMISTRY & BLOOD GAS ORDERABLES Performing Organization Address [facility] Co de Phone Number [facility] [address] [place] [address] documented in this encounter Visit Diagnoses Not on filedocumented in this encounter Additional Health Concerns Infection Onset Date Last Indicated Resolved Time COVID-19 10/09/2021 10/09/2021 10/29/2021 22:1 5 EDT documented as of this encounter Care Teams Ophthalmology Surgical Technician Relationship Specialty Start Date End Date Brian Santos MD [address] [place] [id number] PCP - General 02/23/15 documented as of this encounter
--- OUTSIDE RECORDS SUMMARY | 2023-12-09 09:07 | XMS_ITS | Encounter Summary ---
Author Organization [facility] Address [address] [place] [address] Care Team Providers Care Volunteer Fire Fighter Name Role Phone Brian Santos MD Primary Care Provider [phone] Encounter Details Date Type Department Care Team (Late st Contact Info) Description 08/02/2021 Lab Requisition [facility] Pathology & Laboratory Medicine - [facility] [address] [place] [address] Outr Resulting Lab, Provider Social History Tobacco [...] Comments [id number] TEST [facility] PCR Today 08/02/2021 16:00 EDT COVID-19 TESTING Routine 08/02/2021 16:0 0 EDT documented in this encounter Results * COVID-19 TEST [facility] PCR (08/02/2021 16:00 EDT) Swab 08/02/2021 16:0 0 EDT 08/03/2021 16:43 EDT Provider Outr Resulting Lab MICROBIOLOGY - GENERAL ORDERABLES [facility] [address] [place] [address] * COVID-19 TESTING (08/02/2021 16:00 EDT) COVID-19 rt-PCR Result Negative Negative 08/04/2021 12:29 EDT [facility] Comment: This test has not [...] performed using the german SARS-CoV-2 assay ([employer] on the [employer] 6800 System Performing Lab [place] [address] [facility] Lab 08/04/2021 12:29 EDT [facility] Swab 08/02/2021 16:0 0 EDT 08/03/2021 16:43 EDT Provider Outr Resulting Lab MICROBIOLOGY - GENERAL ORDERABLES [facility] [address] [place] [address] documented in this encounter Visit Diagnoses Not on filedocumented in this encounter Additional Health Concerns Infection Onset Date Last Indicated Resolved Time COVID-19 10/09/2021 10/09/2021 10/29/2021 22:1 5 EDT documented as of this encounter Care Teams Volunteer Fire Fighter Relationship Specialty Start Date End Date Brian Santos MD [address] [place] [phone] PCP - General 02/23/15 documented as of this encounter
--- OUTSIDE RECORDS SUMMARY | 2023-12-09 09:07 | XMS_ITS | Encounter Summary ---
Author Organization [facility] [place] [address] Care Team Providers Care Habitat Management Coordinator Name Role Phone Dayanna Peters MD Primary Care Provider [phone] Reason for Visit * Consultation (Routine) - Closed Specialty Diagnoses / Procedures Referred By Conner olguin Referred To Contact Allergy Diagnoses ANAPHYLAXIS Casey Maloney MD [address] [place] [address] [place] [address] [facility] [place] [facility] [address] [place] [id number] Referral ID Status Reason Start Date Expiration Date V isits Requested Visits Authorized [id number] Closed Consult, Test & Treat Connection Center 10/30/2017 10/30/2018 1 1 Encounter Details Date Type Department Care Team (Latest Contact Info) Description 02/02/2018 9:00 AM EDT [place] [address] Kenton Orlando MD [facility] [address] Anaphylaxis, initial encounter; Asthma, unspecified asthma severity, unspecified whether complicated, unspecified whether persistent; Soy sensitization without clear tolerance; Allergy to environmental factors Social History Tobacco Use Types Packs/Day Years Used Date Smoking Tobacco: Never Smokeless Tobacco: Never Sex and Gender Information Value Date Recorded Sex Assigned at Not on file Gender Identity Not on file Sexual Orientation Not on file documented as of this encounter Last Filed Vital Signs Vital Sign Reading Time Taken Comments Blood Pressure 110/60 02/02/2018 8:46 AM EDT Pulse 70 02/02/2018 8:46 AM EDT Temperature 36.7 ??C (98.1 ??F) 02/02/2018 8:46 AM ED T Respiratory Rate 16 02/02/2018 8:46 AM EDT Oxygen Saturation 100% 02/02/2018 8:46 AM EDT Inhaled Oxygen Concentration - - Weight 65.4 kg (144 lb 3.2 oz) 02/02/2018 8:46 A M EDT Height 160 cm (5' 3) 02/02/2018 8:46 AM EDT Body Mass Index 25.54 02/02/2018 8:46 AM EDT Body Mass Index Percentile 85.50% 02/02/2018 8:4 6 AM EDT Growth Chart: [facility] (Girls, 2- 20 Years) documented in this encounter Patient Instructions * Patient Instructions* Kenton Orlando MD - 02/02/2018 9:00 AM EDT Images from the original note were not included. Testing positive to DUST MITES, dog, tree, weed, mold, and soy. Negative testing to cat, grass, andlatex. No reaction to Ajax pod on skin. Anaphylaxis Testing without culprits today. Notify clinic if episode recurs Keep epinephrine autoinjector available OK to retry culprits Asthma Discussed as needed albuterol Baseline spirometry normal today, recommend exercise challenge study with inflammation index. Consider trial of asthma controller therapy; consider addressing possible Vocal Cord Dysfunction (VCD) component Additional information: ALLERGY SEASONS & AVOIDANCE: Dust mites: Year-round, especially Fall 1. Dust mite encasings, pillow and mattress (Breeze Tech) 2. Wash bedding (linens, not dust mite cases) in hot water (no hotter than 120 F) 3. Humidity control, 30-50% 4. Minimize carpet and stuffed animal exposure Animals: Year-round 1. Minimize animal allergen exposure 2. Removal or -- regular baths/wiping of animal once per week -- exclusion from the bedroom -- HEPA filter in bedroom and living area -- Consider allergen pillow and mattress casings. Molds: Year-round, especially Fall 1. Remove obvious mold 2. Minimize moisture / leaks 3. Humidity control, 30-50% 4. Additional resources on indoor air quality: https://www.epa.gov/mold/gao-byvyrx-wif-kcqrvj-ungl-fkfip-mold https://www.epa.gov/xxpolx-wrh-npqtzip-iaq http://leni.wy.gov/organization/divisions/air/pehb/ehs/iaqp/index.htm Pollens: Grass: Late Spring to Summer; Trees: Early Spring; Weeds: Mid Summer; Ragweed: Late Summer: [place] Mold: Late Summer to Fall 1. Nightly hair washing during pollen seasons 2. Keep windows closed, consider window a/c unit with filter (clean/maintain well, avoid/monitor for/prevent mold contamination) 3. Do not place fans in windows 4. Do not dry clothes outside. ] Recommend as needed albuterol metered dose inhaler (MDI) and spacer. May use if needed, seek care for severe symptoms. If poor asthma control, consider controller therapy or controller therapy increase. Signs of worsening asthma control include a night-time cough that wakes you up more than twice per month, coughing, wheezing, chest-tightness or shortness of breath more than once to twice per week, trouble keeping up with peers or with exercise, greater than 20% difference between morning and evening peak flows, or more than one course of oral steroids per year for asthma. Recommend annual flu shot In general , asthma follow-up should be scheduled in the primary care or allergy clinic every 2-6 weeks when achieving asthma control (or adjusting therapy) and every 3 to 12 months when control is achieved. For children over 5 years of age spirometry should be performed every 6 months to 2 years to assess lung function. For children younger than 5 years of age, consider updating allergy skin testing at 5-6 years of age if symptoms persist. For patients receiving controller therapy, step-down in asthma controller therapy may be appropriate in patients with stable well controlled asthma Priming Instructions for Short Acting Beta Agonists: Ventolin - 4 sprays with first use then 4 sprays if not used in 2 weeks (204 sprays) Proventil - 4 @ 1st and after 2 weeks non-use or if dropped (200) ProAir - 3 sprays @ 1st use and after 2 weeks non-use (200) Xopenex - 4 sprays @ 1st use and after 3 days non-use (200) documented in this encounter Progress Notes * Kenton Orlando MD - 02/02/2018 9:00 AM EDT [facility] Section of Allergy, Asthma, and Immunology Primary Care Provider: Dayanna Peters MD Patient Age: 17 y.o. 5 m.o. Patient : 2000 Reason for Evaluation: anaphylaxis Historian: patient, mother HPI: Lawanda Mcdaniel is a 17 y.o. 5 m.o. with the following problems. The family writes on the intake form the reason for the visit as swelling of mouth, throat, breathing issues # Food allergy / allergic reaction after eating a cookie ( throat tightness, sob, tongue swelling, hypoxic epinephrine). Had also touched a dishwashing liquid within minutes of eating cookie, and sx began after touching detergent. No local reaction on contact with detergent Tolerates PN, coconut, almond, walnut Has retried culprit cookie Has hummus Has not eaten cashew, pecan, pistachio, pesto, brazil nut, soy Sx at onset were stomach pain, lip swelling, throat pain, nausea, vomiting, 911, ER This has not occurred before or since. Dad is allergic to bee stings, but no recent bee stings in patient around the time of the event Tolerates Lactaid (lactose intolerant), Egg, Wheat, Beef, Peanut, Chicken, [place], Pea, Potato, Rice,Carrot, Pork, Shrimp, Crab, Fish No problems with ibuprofen or latex. No proximal exercise. Has used topical abx since then. Not used washer pods # Mild intermittent asthma, seems to be worse since event (OSMAN on hills; inspriatory, inspiratory sx). Sx now noted only walking uphill, infrequently. Has PRN albuterol which if of some benefit. Has used before exercise, at this point use is less than once per month. No seasonal allergies PMH: Notable for: term No past medical history on file. No past surgical history on file. Patient Active Problem List Diagnosis Code ??? Anaphylaxis T78.2XXA ??? Asthma J45.909 ??? 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 Allergy to environmental factors Z91.09 MEDS: Outpatient Medications Marked as Taking for the 02/02/18 encounter (Office Visit) with Kenton Orlando MD Medication Sig Dispense Refill ??? albuterol (PROAIR HFA) 90 mcg/actuation HFA Aerosol Inhaler Inhale 1-2 puffs into the lungs every 4 hours as needed. ??? etonogestrel (NEXPLANON) 68 mg Implant by Subdermal route Continuous (Device). ??? EPINEPHrine 0.3 mg/0.3 mL Auto-Injector Inject 0.3 mg into the muscle as needed. ??? [DISCONTINUED] EPINEPHrine (EPIPEN) 0.3 mg/0.3 mL Auto-Injector As directed ALLERGIES: No Known Allergies Family History Problem Relation Age of Onset ??? Allergic Rhinitis Sister ??? Asthma Maternal Aunt ??? Asthma Maternal Uncle ??? Food Allergy Cousin Social History: Social History Social History Narrative Exposure to 3 dogs. ETS use by mother ROS: Notable for: depression, anxiety. All others negative. Physical Exam: Vitals: 02/02/18 0846 BP: 110/60 BP Location (NBP): Right arm Patient Position: Sitting BP Cuff Sizes: Adult (25-34 cm) Pulse: 70 Resp: 16 Temp: 36.7 ??C (98.1 ??F) TempSrc: Oral SpO2: 100% Weight: 65.4 kg (144 lb 3.2 oz) Height: 160 cm (5' 3) 81 %ile based on CDC (Girls, 2-20 Years) [id number] data based on Weight recorded on 02/02/2018. 32 %ile based on CDC (Girls, 2-20 Years) Hvcxsir-abl-cna data based on Stature recorded on 02/02/2018. Normal Except General: - Nl development/ nl grooming/ nl body habitus ENT: - Conjunctivae without injection; - Tympanic membranes translucent w/ nl landmarks; - Nl nasal mucosa, septum, and turbinates; - Oropharynx well hydrated without lesions or exudates; nl teeth & gums; - Face & sinuses non-tender to palpation/percussion Mild turbinate edema Neck: - Symmetrical, no masses, trachea midline; no thyromegaly Resp: - Unlabored breathing with symmetrical with equal bilateral expansion; - Well aerated. CTA w/o wheezes, rales, or rhonchi; CV: - Regular rate and rhythm without murmur - No pedal swelling GI: - Abdomen soft without masses or hepatosplenomegaly Lymph: - No significant cervical lymphadenopathy Musculoskeletal: - Nl gait and station Extremities: - No clubbing, cyanosis, or edema Skin: - No rashes, lesions, or ulcers Neuro/Psych: - Nl and age appropriate mood and affect Review of Medical Records: Referred for evaluation of anaphylaxis ?? 10/14/17 ED note Unknown trigger. Had eaten a cookie. Developed abrupt throat tightness, sob, tongue swelling. EMS provided epinephrine, hypoxic en transport. Meds include nexplanon, albuterol prn, fluoxetine Lungs clear, no hives on exam. Received H1 jerica, solumedrol, zofran, benadryl, zantac. Discharged with epipen rx ?? 10/14/17 labs: ANC 2590, ALC 3600, AEC 30, AST 26, ALT 20 ?? 10/29/17 pcp note: Cookie had been chocolate M&M cookie, as well as skin contact with a human services case manager pod. Since event, avoiding nuts. Rxn occurred 5-10 minutes after cookie; lips felt weird and got swollen. Tingling fingers, felt like she could barely breathe. Called mom and 911, EMS arrived, started vomiting. Hypoxic on initial eval. Apparently since event has been having chocolate, SF seed, soy but avoiding peanuts. No obvious stings. Hx of depression, mild intermittent asthma, and depression Procedures Performed: Risks and benefits of skin testing were discussed in detail with the family. The family requested skin testing to the allergens placed today. Equipment Dispensed / Teaching Performed: epipen, adrenaclick, mdi teaching done SKIN TESTING RESULTS Allergen (wheal & flare recorded in mm) Positive: DUST MITES, dog, tree, weed, mold, soy Dust mites: D. Farinae (15,40), D. Pteronyssinus (15,30) Animals: Cat (0,3), Dog (0,5), AP Dog (3,5) Grass pollen: Grass mix (0,2), Alvin (0,3) Tree pollen: Tree mix (4,5), Birch (0,3), [place] (0,3) [place] pollen: [place] mix (3,3), Ragweed (0,3) Molds: Aspergillus (3,3), Alternaria (2,3), Nuts: Cashew (0,3), Hazelnut (0,5), Peanut (0,1), Pistachio (0,2), [place] Bernard (0,3) Other: Latex (0,5), Soy (3,10) Controls: Positive (8,30), Negative (0,3) Method: Single prick; Location: Back; Placed by: nurse; Reading/interpretation: MD * Reactions may still occur despite negative skin tests. Lower skin test class does NOT predict reaction severity (severe reactions may still occur with negative or low positive skin tests). Negativeskin tests to foods do not have predictive value for delayed food reactions or intolerance. Dog epithelia (kerr) is low in Can f 1 but high in Can f 3; AP Dog ([place]-Lin) dander is high in Canf 1 but low in Can f 3. Mixes: 7- grass mix = [place] Blue, Orchard, Ret Top, Alvin, Sweet [place], [place] Fescue, Perennial [place]; 11-Tree mix = [place] Beech, [place] Citizen/[place], [place] Elm, Black [place], Black [place], [place], [place], Red/River Birch, Shag[place]ark [place], Sugar/Hard Maple, [place]; National weed mix = [place], Giant Ragweed, [place], Rough/Redroot Pigweed, Short Ragweed Gradinmm wheal OR 10mm flare over negative control: 1+ 5mm wheal over negative control: 2+ 7mm wheal over negative control: 3+ 10mm wheal or greater over negative control: 4+ Ajax detergent pad applied to skin: no reaction 02/02/2018 Spirometry: FEV1 2.6L (82 %); FVC 3.44L (96%); ratio 0.76. Repeatability in FEV1 rangingfrom 2.47 - 2.6 L. Post bronchodilator: 10% change in FEV1 (2.86 L; 90% predicted); 1% change in FVC (3.47 L; 97% predicted), ratio 0.83. Mild obstruction without sig improvement after BD. ACT = 22 Pt reports asthma bothers sometimes, no sob, no noc sx, no albuterol use, asthma well controlled. Assessment/Recommendations: Lawanda Mcdaniel is a 17 y.o. 5 m.o. with the following problems addressed today: Anaphylaxis Testing without culprits today. Notify clinic if episode recurs Keep epinephrine autoinjector available OK to retry culprits Asthma Discussed as needed albuterol Baseline spirometry normal today, recommend exercise challenge study with inflammation index. Consider trial of asthma controller therapy; consider addressing possible Vocal Cord Dysfunction (VCD) component Soy sensitization without clear tolerance Caution with soy, beans, and peas. Either at home or clinic, carefully try soy beverage. Instructions for Home Challenge Begin with a very small taste. Then every 30 minutes to several days may advance amount by doublingprevious tolerated amount if no reaction occurs. If any symptoms occur, stop introduction. Seek care for any symptoms besides 1-2 hives. Notify allergy clinic if any symptoms occur. 1. 1/16th teaspoon 2. 1/8 teaspoon 3. 1/4 teaspoon 4. 1/2 teaspoon 5. 1 teaspoon 6. 2 teaspoon 7. 1 tablespoon 8. 1 ounce and continue to gradually advance to full serving size as tolerated Allergy to environmental factors Reviewed avoidance of dust mites, dog, tree pollen, weed, and mold All questions were answered, and patient/parents expressed understanding of the plan. Thank you for the opportunity to participate in the care of your patient. Ongoing follow-up with the patient's primary care physician is recommended and encouraged. If I can provide any further assistance, please do not hesitate to contact me. Next visit (studies planned): Next available RV4 food challenge (cashew, soy) - patient preference * Kenton Orlando MD - 02/02/2018 9:00 AM EDT 02/02/18 RASTS: Negative: soy, cashew * Kenton Orlando MD - 02/02/2018 9:00 AM EDT 02/02/18 RASTS: Negative: soy, grisew Tryptase 2.7 documented in this encounter Miscellaneous Notes * Assessment & Plan Note - Kenton Orlando MD - 02/02/2018 10:53 AM EDT Associated Problem(s): Allergy to environmental factors Reviewed avoidance of dust mites, dog, tree pollen, weed, and mold * Assessment & Plan Note - Kenton Orlando MD - 02/02/2018 10:53 AM EDT Associated Problem(s): Soy sensitization without clear tolerance Caution with soy, beans, and peas. Either at home or clinic, carefully try soy beverage. Instructions for Home Challenge Begin with a very small taste. Then every 30 minutes to several days may advance amount by doublingprevious tolerated amount if no reaction occurs. If any symptoms occur, stop introduction. Seek care for any symptoms besides 1-2 hives. Notify allergy clinic if any symptoms occur. 1. 16th teaspoon 2. 1/8 teaspoon 3. 1/4 teaspoon 4. 1/2 teaspoon 5. 1 teaspoon 6. 2 teaspoon 7. 1 tablespoon 8. 1 ounce and continue to gradually advance to full serving size as tolerated * Assessment & Plan Note - Kenton Orlando MD - 02/02/2018 9:46 AM EDT Associated Problem(s): Asthma Discussed as needed albuterol Baseline spirometry normal today, recommend exercise challenge study with inflammation index. Consider trial of asthma controller therapy; consider addressing possible Vocal Cord Dysfunction (VCD) component * Assessment & Plan Note - Kenton Orlando MD - 02/02/2018 9:45 AM EDT Associated Problem(s): Anaphylaxis Testing without culprits today. Notify clinic if episode recurs Keep epinephrine autoinjector available OK to retry culprits * Addendum Note - Chanda Higginbotham - 02/02/2018 9:00 AM EDTAddended by: CHANDA HIGGINBOTHAM on: 02/02/2018 12:07 PM Modules accepted: Orders documented in this encounter Plan of Treatment Pending Results Name Type Priority Associated Diagnoses Date /Time Pulmonary Function Testing PFT Routine Asthma, unspecified asthma severity, unspecified whether complicated, unspecified whether persistent 02/19/2018 3:36 PM EST Scheduled Orders Name Type Priority Associated Diagnoses Orde r Schedule ALLERGY SKIN TEST Procedures Routine Anaphylaxis, initial encounter Ordered: 02/02/2018 Pulmonary Function Testing PFT Routine Asthma, unspecified asthma severity, unspecified whether complicated, unspecified whether persistent Expected: 02/16/2018, Expires: 02/02/2019 documented as of this encounter Procedures Procedure Name Priority Date/Time Associated Diagnosis Comments TRYPTASE Routine 02/02/2018 12:20 PM EDT Anaphylaxis, initial encounter CASHEW IGE Routine 02/02/2018 12:20 PM EDT Anaphylaxis, initial encounter SOYBEAN IGE Routine 02/02/2018 12:20 PM EDT Anaphylaxis, initial encounter ALLERGY SCAN 02/02/2018 12:00 AM EDT ALLERGY SCAN 02/02/2018 12:00 AM EDT PULMONARY SCAN 02/02/2018 12:00 AM EDT documented in this encounter Results * Soybean IgE (02/02/2018 12:20 PM EDT) Soybean, IgE <0.35 kU/L [facility] Comment: Reference Ranges <0.35 kU/L Class 0: ??Normal 0.35-0.69 kU/L Class 1: ??Low level of allergy, indicative of ongoing sensitization 0.70-3.49 kU/L Class 2: ??Moderate level of allergy, indicative of stronger ongoing sensitization 3.50-17.49 kU/L Class 3: ??High level of allergy, indicative of high level sensitization 17.5-49.9 kU/L Class 4: Very high level of allergy, indicative of very high level sensitization 50.0-100 kU/L Class 5: Very high level of allergy, indicative of very high level sensitization Blood specimen (specimen) 02/02/2018 12:20 PM EDT 02/03/2018 7:20 AM EDT Narrative Resulting Agency Comment Spec In Lab Kenton Orlando MD IMMUNOLOGY ORDERABLE S [facility] [place] [address] * Cashew IgE (02/02/2018 12:20 PM EDT) Cashew, IgE <0.35 kU/L [facility] Comment: Reference Ranges <0.35 kU/L Class 0: ??Normal 0.35-0.69 kU/L Class 1: ??Low level of allergy, indicative of ongoing sensitization 0.70-3.49 kU/L Class 2: ??Moderate level of allergy, indicative of stronger ongoing sensitization 3.50-17.49 kU/L Class 3: ??High level of allergy, indicative of high level sensitization 17.5-49.9 kU/L Class 4: Very high level of allergy, indicative of very high level sensitization 50.0-100 kU/L Class 5: Very high level of allergy, indicative of very high level sensitization Blood specimen (specimen) 02/02/2018 12:20 PM EDT 02/03/2018 7:20 AM EDT Narrative Resulting Agency Comment Spec In Lab Kenton Orlando MD IMMUNOLOGY ORDERABLE S Performing Organization Address City/[facility]/ZIP Co de Phone Number [facility] [place] [address] * Tryptase (02/02/2018 12:20 PM EDT) Tryptase 2.7 <=11.1 ng/mL [facility] Comment: Total tryptase concentrations that are persistently greater than 20 ng/mL may be consistent with systemic mastocytosis. Blood specimen (specimen) 02/02/2018 12:20 PM EDT 02/03/2018 7:19 AM EDT Narrative Resulting Agency Comment Spec In Lab Kenton Orlando MD CHEMISTRY ORDERABLES Performing Organization Address [facility]/[place] Co de Phone Number [facility] [place] [address] * SCAN DOC: ALLERGY (02/02/2018 12:00 AM EDT) Narrative 02/02/2018 12:00 AM EDT Ordered by an unspecified provider. Scanning Provider MEDIA MGR SCAN EXT O RDR/RSLT * SCAN DOC: ALLERGY (02/02/2018 12:00 AM EDT) Narrative 02/02/2018 12:00 AM EDT Ordered by an unspecified provider. Scanning Provider MEDIA MGR SCAN EXT O RDR/RSLT * SCAN DOC: PULMONARY STUDY (02/02/2018 12:00 AM EDT) Narrative 02/02/2018 12:00 AM EDT Ordered by an unspecified provider. Scanning Provider MEDIA MGR SCAN EXT O RDR/RSLT documented in this encounter Visit Diagnoses Diagnosis Anaphylaxis, initial encounter Asthma, unspecified asthma severity, unspecified whether complicated, unspecified whether persistent Soy sensitization without clear tolerance Other abnormal clinical finding Allergy to environmental factors Allergic rhinitis, cause unspecified documented in this encounter Care Teams Habitat Management Coordinator Relationship Specialty Start Date End Date Dayanna Peters MD [facility] [place] [address] PCP - General 03/06/10 02/20/22 documented as of this encounter
--- OUTSIDE RECORDS SUMMARY | 2023-12-09 09:07 | XMS_ITS | Encounter Summary ---
Author Organization [facility] [place] [place] [address] Care Team Providers Care Route Sales Associate Name Role Phone Dayanna Peters MD Primary Care Provider [phone] Encounter Details Date Type Department Care Team (Late st Contact Info) Description 06/20/2018 [place] [address] Kenton Orlando MD [facility] DR [facility] [address] Social History Tobacco Use Types Packs/Day Years Used Date Smoking Tobacco: Never Smokeless Tobacco: Never Sex and Gender Information Value Date Recorded Sex Assigned at Not on file Gender Identity Not on file Sexual Orientation Not on file documented as of this encounter Miscellaneous Notes * Telephone Encounter - Marjorie Aquino - 06/29/2018 12:28 PM EDT Left message to call and schedule challenge appt; can use frozen per . * Telephone Encounter - Kenton Orlando MD - 06/20/2018 6:48 AM EST Exercise spirometry: Sx recreated, max drop -7%. FeNO 21 . Negative for EIB * Telephone Encounter - Kenton Orlando MD - 06/20/2018 6:48 AM EST ----- Message from Marjorie Aquino sent at 06/19/2018 9:18 AM EST ----- I cancelled her may challenge appt because your are away, but mom doesn't think that it is necessary, but wants to be sure you agree Before rescheduling; also, she never heard back from you r/pft appt that was done in February,. documented in this encounter Plan of Treatment Not on file documented as of this encounter Visit Diagnoses Not on filedocumented in this encounter Care Teams Route Sales Associate Relationship Specialty Start Date End Date Dayanna Peters MD [facility] [place] [address] PCP - General 03/06/10 02/20/22 documented as of this encounter
--- OUTSIDE RECORDS SUMMARY | 2023-12-09 09:07 | XMS_ITS | Encounter Summary ---
Author Organization [facility] Address [address] [place] [address] Care Team Providers Care City Surveyor Name Role Phone Brian Santos MD Primary Care Provider [phone] Encounter Details Date Type Department Care Team (Late st Contact Info) Description 03/12/2021 Lab Requisition [facility] Pathology & Laboratory Medicine - [address] [address] Outr Resulting Lab, Provider Social History Tobacco [...] Comments CHLAMYDIA/N. GONORRHOEAE AMPLIFIED NUCLEIC ACID Routine 03/12/2021 10:45 EST documented in this encounter Results * CHLAMYDIA/N. GONORRHOEAE AMPLIFIED RNA (03/12/2021 10:45 EST) Neisseria gonorrhoeae Result Negative Negative 03/13/2021 15:38 EST [facility] Chlamydia trachomatis Result Negative Negative 03/13/2021 15:38 EST [facility] Swab ENTIRE ENDOCERVIX / Unknown 03/12/2021 10:45 EST 03/12/2021 21:21 EST Provider Outr Resulting Lab MICROBIOLOGY - GENERAL ORDERABLES [facility] [address] [place] [address] documented in this encounter Visit Diagnoses Not on filedocumented in this encounter Additional Health Concerns Infection Onset Date Last Indicated Resolved Time COVID-19 10/09/2021 10/09/2021 10/29/2021 22:1 5 EDT documented as of this encounter Care Teams City Surveyor Relationship Specialty Start Date End Date Brian Santos MD [address] [place] [id number] PCP - General 02/23/15 documented as of this encounter
--- OUTSIDE RECORDS SUMMARY | 2023-12-09 09:07 | XMS_ITS | Encounter Summary ---
Author Organization [facility] [place] [address] Care Team Providers Care Soaker Meat Name Role Phone None Primary Care Provider Unavailabl e Reason for Visit * Auth/Cert Specialty Diagnoses / Procedures Referred By Conner t Referred To Contact Diagnoses Injury of bile duct bile duct injury back and forth Procedures PRO ERCP,DIAGNOSTIC PRO UPPER GI ENDOSCOPY, REMOV F.B. PRO ANESTH, UGI ENDOSCOPY ERCP PRO ANESTH, COMBINED UPPER OR LOWER ENDOSCOPY ERCP Bijan Felipe MD [facility] [place] [address] [facility] Referral ID Status Reason Start Date Expiration Date Visits Re quested Visits Authorized [id number] 1 1 Encounter Details Date Type Department Care Team (Late st Contact Info) Description 02/21/2022 1:15 PM EST - 02/21/2022 2:45 PM EST [place] [address] Bijan Felipe MD [facility] [place] [address] ERCP W/SPHINCTEROTOMY/PAPIL LOTOMY (WRVU 6.5) Social History Tobacco Use Types Packs/Day Years [...] Sign Reading Time Taken Comments Blood Pressure 132/77 02/21/2022 2:45 PM EST Pulse 80 02/21/2022 12:32 PM EST Temperature - - Respiratory Rate - - Oxygen Saturation 100% 02/21/2022 2:45 PM EST Inhaled Oxygen Concentration - - Weight 63.5 kg (140 lb) 02/21/2022 12:32 PM EST Height 160 cm (5' 3) 02/21/2022 12:32 PM EST Body Mass Index 24.8 02/21/2022 12:32 PM EST documented in this encounter Medications at Time of Discharge Medication Sig Dispensed Refills Start Date End Date albuteroL 90 mcg/actuation HFA Aerosol Inhaler Inhale [...] as of this encounter H&P Notes * Oswaldo Pruitt MD - 02/21/2022 8:03 AM EST Procedure: ERCP Indication: Bile duct injury History of Present Illness: Lawanda Mcdaniel is a 21 y.o. F PMH mild intermittent asthma who was recently admitted to [facility] with acute cholecystitis s/p CCY c/b complete transection of the CBD 1cm distal to the cystic duct s/p conversion to open and duct to duct anastomosis and ureteral stent placement into the bile duct who presents for ERCP for further management of bile duct injury. Patient Active Problem List Diagnosis Code ??? Anaphylaxis T78.2XXA ??? Asthma J45.909 ??? 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 Allergy to environmental factors Z91.09 Medications: Reviewed in EDH No Known Allergies Social History/Family History: Reviewed in EDH. No changes Exam: No data found. Axox3, nad Anicteric, MMM CTAB RRR, no m/r/g abd soft nt nd +bs Assessment and Plan: Proceed with ERCP: ASA Grade: ASA 2 - Patient with mild systemic disease with no functional limitations Mallampati score:I (soft palate, uvula, fauces, tonsillar pillars visible) Sedation plan: MAC/GA Risks and benefits of the procedure were discussed with the patient. Consent has been signed. Oswaldo Pruitt MD documented in this encounter Plan of Treatment Not on file documented as of this encounter Procedures Procedure Name Priority Date/Time Associated Diagnosis Comments XR ERCP Routine 02/21/2022 3:33 PM EST Ercp, W/Removal Stone, Mono/Pancr Ducts (02048) 02/21/2022 1:30 PM EST bile duct injury back and forth Ercp Biliary Or Pancreatic Duct Stent Removal & Exchange W/Dil&Wire(74423) 02/21/2022 1:30 PM EST bile duct injury back and forth Ercp, Sphincterotomy (30608) 02/21/2022 1:30 PM EST bile duct injury back and forth ERCP Routine 02/21/2022 1:06 PM EST documented in this encounter Results * XR ERCP (02/21/2022 3:33 PM EST) Narrative [facility] - 02/21/2022 3:33 PM EST See PACS for result report. Bijan Felipe MD [facility] FILM LIBRARY ORD ERABLES [place], [place] * ERCP (02/21/2022 1:06 PM EST) ERCP [facility] Endoscopy Procedure Date: 02/21/2022 1:06 PM ? Patient Name: Lawanda Mcdaniel ? Date of : 2000 ? Age: 21 ? Order #: [id number] ? Instrument Name: [id number] ? Procedure: ? ERCP Indications: ? Bile leak from main duct injury, ? Stent change Providers: ? Bijan Felipe MD, Oswaldo Aly. ? Sonal, Devon Jay ? Sylvia Maravilla Referring MD: ?Dayanna Peters MD, Andrade Mendenhall, ? MD Medicines: ? Monitored Anesthesia Care, ? Indomethacin 100 mg AK Complications: ? No immediate complications. Procedure: ? [...] prior to the procedure by the ? physician. The procedure was ? verified in the pre-procedure area. ? - Pre-procedure physical ? examination revealed no ? contraindications to sedation. ? - ASA Grade Assessment: II - A ? patient with mild systemic disease. ? - After reviewing the risks and ? benefits, the patient was deemed in ? satisfactory condition to undergo ? the procedure. ? - General anesthesia under the ? [...] the procedure well. ? Findings: ? A biliary stent was visible on the cigarette tipper film in the ? RUQ. Surgical clips were present in the RUQ close to, ? but not over the stent. A surgical drain was seen ? originating from the right side and coursing ? superiorly and medially, with the distal tip ? terminating just left of the spine. The esophagus was ? successfully intubated under direct vision. The scope ? was advanced to a normal major papilla in the ? descending duodenum without detailed examination of ? the pharynx, larynx and associated structures, and ? upper GI tract. The upper GI tract was grossly ? normal. The ampulla was normal and the biliary stent ? was not visible externally. The bile duct was deeply ? cannulated with the short-nosed traction ? sphincterotome. Contrast was injected. I personally ? interpreted the bile duct images. There was brisk ? flow of contrast through the ducts. Extravasation of ? contrast originating from the middle third of the ? main bile duct was observed, close to the surgical ? clips at area of duct to duct anastomosis where there ? was mild focal luminal narrowing. The biliary tree ? was otherwise normal. Biliary sphincterotomy was made ? with a monofilament traction (standard) ? sphincterotome using ERBE electrocautery. There was ? no post-sphincterotomy bleeding. The biliary tree was ? swept with an 11.5 mm balloon starting at the lower ? third of the main bile duct with successful ? repositioning of the biliary (modified ureteral per ? Op note) stent into the duodenal lumen. The stent was ? then removed with a snare through the operating ? channel of the scope. No stents remained. Wire access ? to the common hepatic duct was carefully ? re-established, with slight difficulty due to a short ? area of relative narrowing of the mid bile duct, ? likely representing an anastomotic stricture, as well ? as inadvertent passage of the wire into the ? periduodenal space, likely related to a defect in the ? bile duct. One 10 Fr by 9 cm temporary plastic ? biliary stent with a single external flap and a ? single internal flap was placed into the common bile ? duct. Bile flowed through the stent. The stent was in ? good position. The pancreatic duct was not accessed. ? Indomethacin 100 mg was given via suppository to ? decrease the risk of post-ERCP pancreatitis (PEP). ? Moderate Sedation: ? See anesthesia notes. Impression: ?- A plastic stent was in place with ? the distal end in the distal common ? bile duct. The R sided surgical ? drain was also in place with the ? distal end projecting just left of ? the spine. ? - Sphincterotomy performed after ? confirming bile duct cannulation. ? - The surgically placed plastic ? stent was removed from the common ? bile duct with an extraction ? balloon and a snare. ? - Occlusion cholangiogram showed a ? short stricture and bile leak at ? the biliary anastomosis in the mid ? extrahepatic bile duct. ? - A 10F x 9 cm plastic biliary ? stent was successfully placed into ? the right intrahepatic duct, with ? the distal end in the duodenal ? lumen, thus bridging the leak and ? stricture. Recommendation: ?- Follow expectantly. ? - Management of surgical drain per ? surgical team. ? - Repeat ERCP in 2-3 months to ? remove or exchange stent depending ? on clinical course. ? - Return patient to referring ? hospital for ongoing care. ? - The attending physician listed ? above was present for the entire ? procedure. ? Procedure Code(s): ? --- Professional --- ? 92919, Endoscopic retrograde ? cholangiopancreatography (ERCP); ? with removal and exchange of ? stent(s), biliary or pancreatic ? duct, including pre- and ? post-dilation and guide wire ? passage, when performed, including ? sphincterotomy, when performed, ? each stent exchanged Diagnosis Code(s): ? --- Professional --- ? K83.9, Disease of biliary tract, ? unspecified ? Z46.59, Encounter for fitting and ? adjustment of other ? gastrointestinal appliance and ? device ? K83.8, Other specified diseases of ? biliary tract ? --- Technical --- ? K83.9, Disease of biliary tract, ? unspecified ? Z46.59, Encounter for fitting and ? adjustment of other ? gastrointestinal appliance and ? device ? K83.8, Other specified diseases of ? biliary tract CPT copyright 2021 [employer]. All rights reserved. The codes documented in this report are preliminary and upon photo graphics librarian review may be revised to meet current compliance requirements. Attending Participation: ? I was present and participated during the entire ? procedure, including non-mistry portions. ? Bijan Felipe MD 02/21/2022 3:07:46 PM This report has been signed electronically. Number of Addenda: 0 Note Initiated On: 02/21/2022 1:06 PM PROVATION 02/21/2022 1:06 PM EST Dayanna Peters MD GENERAL SURGICAL ORD ERABLES [employer]ATION documented in this encounter Visit Diagnoses Not on filedocumented in this encounter Administered Medications Inactive Administered Medications - up to 3 most recent administrations Medication Order MAR Action Action Date Dose Rate Site fentaNYL (PF) (50 mcg/mL) injection 50 mcg 50 mcg, Intravenous, ONCE, 1 dose, On [place]y 02/21/22 at 1530, If medication ordered subcutaneously, do not administer more than 2 mL as a single injection., Routine Given 02/21/2022 3:05 PM EST 50 mcg indomethacin (Indocin) suppository 100 mg 100 mg, Rectal, ONCE, 1 dose, On Lashay 02/21/22 at 1430, Endoscopy (Intra-Procedure), Routine Given 02/21/2022 2:00 PM EST 100 mg lactated ringers infusion 100 mL/hr, Intravenous, CONTINUOUS, Starting on Lashay 02/21/22 at 1300, Until Lashay 02/21/22 at 1532, Endoscopy (Intra-Procedure) Restarted 02/21/2022 1:54 PM EST New Bag 02/21/2022 12:39 PM EST 100 mL/hr 100 mL/hr ondansetron (pf) (Zofran) (2 mg/mL) injection 4 mg 4 mg, Intravenous, ONCE, 1 dose, On Lashay 02/21/22 at 1530 Given 02/21/2022 3:06 PM EST 4 mg documented in this encounter Active and Recently Administered Medications Times are shown in EST. Scheduled Medication Order 02/19/2022 02/20/2022 02/21/2022 fentaNYL (PF) (50 mcg/mL) injection 50 mcg (COMPLETED) 50 mcg, Intravenous, ONCE, 1 dose, On Lashay 02/21/22 at 1530, If medication ordered subcutaneously, do not administer more than 2 mL as a single injection., Routine 1505 (Given - Provid er: Nehal Abbott RN) indomethacin (Indocin) suppository 100 mg (COMPLETED) 100 mg, Rectal, ONCE, 1 dose, On Lashay 02/21/22 at 1430, Endoscopy (Intra-Procedure), Routine 1400 (Given - Provid er: Gigi Montero RN)1430 (Due) ondansetron (pf) (Zofran) (2 mg/mL) injection 4 mg (COMPLETED) 4 mg, Intravenous, ONCE, 1 dose, On Lashay 02/21/22 at 1530 1506 (Given - Provid er: Nehal Abbott RN) Continuous Medication Order 02/19/2022 02/20/2022 02/21/2022 lactated ringers infusion (CANCELED) 100 mL/hr, Intravenous, CONTINUOUS, Starting on Lashay 02/21/22 at 1300, Until Lashay 02/21/22 at 1532, Endoscopy (Intra-Procedure) 1239 (New Bag - Prov ider: Nehal Abbott RN)1353 (Paused - Provider: Julienne Adams CRNA - Comment: Switch to gravity)1354 (Restarted - Provider: Julienne Adams CRNA)1404 (Anesthesia Volume Adjustment - Provider: Julienne Adams CRNA)1428 (Anesthesia Volume Adjustment - Provider: Julienne Adasm CRNA)1437 (Stopped - Provider: Julienne Adams CRNA) documented in this encounter Care Teams Soaker Meat Relationship Specialty Start Date End Date None None PCP - General 02/21/22 documented as of this encounter
--- OUTSIDE RECORDS SUMMARY | 2023-12-09 09:07 | XMS_ITS | Encounter Summary ---
[place] [address] Care Team Providers Care Director Graphics Name Role Phone None Primary Care Provider Unavailabl e Reason for Visit * Auth/Cert Specialty Diagnoses / Procedures Referred By Conner t Referred To Contact Diagnoses Injury of bile duct bile duct injury back and forth Procedures PRO ERCP,DIAGNOSTIC PRO UPPER GI ENDOSCOPY, REMOV F.B. PRO ANESTH, UGI ENDOSCOPY ERCP PRO ANESTH, COMBINED UPPER OR LOWER ENDOSCOPY ERCP Bijan Felipe MD [facility] [place] [address] [facility] Referral ID Status Reason Start Date Expiration Date Visits Re quested Visits Authorized [id number] 1 1 Encounter Details Date Type Department Care Team (Late st Contact Info) Description 02/21/2022 1:30 PM EST Anesthesia Event [place] [address] Nicolette Black MD [facility] [place] [address] Anesthesia Record Procedure Summary Procedure Name Responsible Anesthesiologist Anesthesia Start Time Anesthesia Stop Time ERCP W/SPHINCTEROTOMY/PA PILLOTOMY (WRVU 6.5) (Trunk) Nicolette Black MD 02/21/22 1330 02/21/22 1448 Events Date Time Event Comment 02/21/2022 1327 1330 AN Verify 1330 Start 1330 An Start Data 1336 An Induction 1341 An Intubation 1341 Anesthesia Ready 1354 Procedure Start 1427 Procedure Stop 1436 Extubation/LMA Out 1437 an stop data 1448 Recovery or ICU Handoff Pt t ransported in stable condition on 8L simple mask. Patient care was transferred to the destination unit staff after review of the patient's medical history, current anesthetic/surgical status and plan, according to the Provider Handoff Checklist. VSS upon arrival to recovery unit. Full report given to RN and all questions answered prior to transferring care. 1448 Stop Meds Name Total fentaNYL 100 mcg Propofol 300 mg Dexmedetomidine 20 mcg Rocuronium 50 mg PHENYLephrine 40 mcg ePHEDrine 5 mg Ondansetron 4 mg Dexamethasone 8 mg Sugammadex 200 mg lactated ringers infusion 500 mL * Agents Name O2 Air N2O Sevoflurane (et) O2 Auxiliary Flowmeter 2 * Blood No blood administrations on file. Lines, Drains, and Airways Type Details Placement Removal (RETIRED) Peripheral IV Line - Single Lumen 02/18/22 (outside hospital); 899 (outside hospital); median cubital vein (antecubital fossa), right; [id number] catheter system; 18 gauge; (outside hospital); 06/10/22; 184702/18/22 0900 by Nehal Abbott, VALDEMAR 06/10/221847 by Kimmie Powers, RN (RETIRED) Peripheral IV Line - Single Lumen 02/20/22 (placed at outside hospital); 899 (placed at outside hospital); cephalic vein (lateral side of arm), left; [id number] catheter system; Anatomical Landmarks; 22 gauge; 06/10/22; 184702/20/22 0900 by Nehal Abbott RN 06/10/221847 by Kimmie Powers, RN ETT Mask Ventilation: Ea sy (1); ETT Type: Cuffed, Oral; ETT Size: 7 mm; Mac Blade: 3; Notes: Asleep, Pre-O2, Stylette; Attempts: 1; Laryngoscopy Grade: 1; ETT Placement Verified By: Auscultation, Capnometry, Visual; Secured at Teeth: 22 cm; Inserted by: shane hernandez; Removal Date: 02/21/22; Removal Time: 1437 02/21/22 1341 by Julienne Hernandez CRNA 02/21/22 1437 by Julienne Hernandez CRNA documented in this encounter Social History [...] OR Notes * Anesthesia Postprocedure Evaluation - Nicolette Black MD - 02/21/2022 2:55 PM EST Department of Anesthesiology Post-procedure Note Patient: Lawanda Mcdaniel Procedure Summary Date: 02/21/22 Room / Location: [facility] ENDO 2 / [facility] ENDOSCOPY Anesthesia Start: 1330 Anesthesia Stop: 1448 Procedures: ERCP W/SPHINCTEROTOMY/PAPILLOTOMY (N/A Trunk) ERCP, W REMOVAL& EXCHANGE STENT, BILIARY/PANCREATIC DUCT ERCP W/REMOVAL CALCULI/DEBRIS FROM BILARY/PANCREATIC DUCT(S) Diagnosis: (bile duct injury) (back and forth) Surgeons: Bijan Felipe MD Responsible Provider: Nicolette Black MD Anesthesia Type: general ASA Status: 2 All Anesthesia Providers: Anesthesiologist: Nicolette Black MD DOCTOR OF RADIOLOGY: Julienne Hernandez CRNA Vitals Value Taken Time BP 111/79 02/21/22 1520 Temp Pulse Resp SpO2 98 % 02/21/22 1520 Pain Level 2 02/21/22 1512 Patient Location: PACU/[facility] Level of Consciousness: Awake and Alert Pain Management: Satisfactory Analgesia PONV: None Cardiovascular Status: At Baseline and Hemodynamically Stable Respiratory Status: At Baseline and Room Air Postoperative Fluid Status: Intravascular EUvolemia Possible Anesthetic Complications: NONE apparent at time of evaluation Final Primary Anesthesia Type: General (The anesthetic type performed was the same as planned.) Comments: Nicolette Black MD * Anesthesia Preprocedure Evaluation - Nicolette Black MD - 02/20/2022 11:58 PM EST Images from the original note were not included. Pre-Anesthesia Evaluation for: Lawanda Mcdaniel a 21 y.o. female. Procedure(s): ERCP Patient Active Problem List Diagnosis Date Noted ??? Anaphylaxis 02/02/2018 ??? Asthma 02/02/2018 ??? 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 Allergy to environmental factors 02/02/2018 No past medical history on file. No past surgical history on file. Social History Tobacco Use ??? Smoking status: Never Smoker ??? Smokeless tobacco: Never Used Substance Use Topics ??? Alcohol use: Not on file Social History Substance and Sexual Activity Drug Use Not on file No Known Allergies Medications: MAR and/or home medications have been reviewed. Physical Exam: Preprocedure Vitals Current as of 02/20/22 2358 No BP, pulse, respiration, SpO2, or temperature recorded. Height: Weight: BMI: IBW: Airway Assessment: Mallampati: I TM distance: >3 FB Neck ROM: full Cardiovascular Assessment: system normal Pulmonary Assessment: pulmonary exam normal Dental Assessment: - normal exam Misc Assessment: IV access: Peripheral line Last Filed Perioperative Cognitive Screening None Anesthesia Plan: ASA 2 general, with a(n) intravenous induction 21yoF who presented to OSH 2 days ago with acute cholecystitis where she underwent laparoscopic cholecystectomy which was c/b transection of the CBD. Procedure was converted to open, gallbladder was removed and CBG was repaired with a duct to duct anastomosis. The surgeon did not have a T-tube available, so a ureteral stent was placed through the duct and tied with a suture which is currently coming out of the skin. She is now s/f ERCP for bile duct injury. AnesHx: None available. Plan: GA with ETT+/- RSI pending discussion Adequate IV access Standard ASA monitors NPO appropriate. Patient with mild abdominal pain no nausea. Consent obtained at bedside. Risks of general anesthesia and associated procedures discussed. Region - Other Informed Consent: Anesthetic plan and risks discussed with patient. Plan discussed with DOCTOR OF RADIOLOGY and attending. Anesthesia Screening documented in this encounter Plan of Treatment Not on file documented as of this encounter Visit Diagnoses Not on filedocumented in this encounter Administered Medications Inactive Administered Medications - up to 3 most recent administrations Medication Order MAR Action Action Date Dose Rate Site dexAMETHasone (Decadron) injection Intravenous, PRN, Starting on Lashay 02/21/22 at 1349, Until Lashay 02/21/22 at 1448, Anesthesia Intra-op, Routine Given 02/21/2022 1:49 PM EST 8 mg dexmedeTOMIDine (Precedex) (4 mcg/mL) bolus injection (Anesthsia) Intravenous, PRN, Starting on Lashay 02/21/22 at 1343, Until Lashay 02/21/22 at 1448, Anesthesia Intra-op, Routine Given 02/21/2022 1:56 PM EST 12 mcg Given 02/21/2022 1:43 PM EST 8 mcg ePHEDrine sulfate (5 mg/mL) multi-dose injection Intravenous, PRN, Starting on Lashay 02/21/22 at 1410, Until Lashay 02/21/22 at 1448, Anesthesia Intra-op, Routine Given 02/21/2022 2:10 PM EST 5 mg fentaNYL (pf) (50 mcg/mL) multi-dose injection Intravenous, PRN, Starting on Lashay 02/21/22 at 1346, Until Lashay 02/21/22 at 1448, Anesthesia Intra-op, Routine Given 02/21/2022 1:46 PM EST 100 mcg lactated ringers infusion 100 mL/hr, Intravenous, CONTINUOUS, Starting on Lashay 02/21/22 at 1300, Until Lashay 02/21/22 at 1532, Endoscopy (Intra-Procedure) Restarted 02/21/2022 1:54 PM EST New Bag 02/21/2022 12:39 PM EST 100 mL/hr 100 mL/hr ondansetron (pf) (Zofran) (2 mg/mL) injection Intravenous, PRN, Starting on Lashay 02/21/22 at 1358, Until Lashay 02/21/22 at 1448, Anesthesia Intra-op, Routine Given 02/21/2022 1:58 PM EST 4 mg PHENYLephrine in NS (PF) (STEPHON-SYNEPHRINE) 0.8 mg/10 mL (80 mcg/mL) multi-dose injection Syrg Intravenous, PRN, Starting on Lashay 02/21/22 at 1401, Until Lashay 02/21/22 at 1448, Anesthesia Intra-op, Routine Given 02/21/2022 2:01 PM EST 40 mcg propofoL (Diprivan) 10 mg/mL bolus injection (Anesthesia) Intravenous, PRN, Starting on Lashay 02/21/22 at 1336, Until Lashay 02/21/22 at 1448, Anesthesia Intra-op Given 02/21/2022 1:37 PM EST 100 mg Given 02/21/2022 1:36 PM EST 200 mg rocuronium (Zemuron) (10 mg/mL) multi-dose injection Intravenous, PRN, Starting on Lashay 02/21/22 at 1337, Until Lashay 02/21/22 at 1448, Anesthesia Intra-op, Routine Given 02/21/2022 1:37 PM EST 50 mg sugammadex (Bridion) 100 mg/mL injection Intravenous, PRN, Starting on Lashay 02/21/22 at 1428, Until Lashay 02/21/22 at 1448, Anesthesia Intra-op, Routine Given 02/21/2022 2:28 PM EST 200 mg documented in this encounter Care Teams Director Graphics Relationship Specialty Start Date End Date None None PCP - General 02/21/22 documented as of this encounter
--- OUTSIDE RECORDS SUMMARY | 2023-12-09 09:07 | XMS_ITS | Encounter Summary ---
Author Organization [facility] Address [address] [place] [address] Care Team Providers Care County Library Director Name Role Phone Brian Santos MD Primary Care Provider [phone] Encounter Details Date Type Department Care Team (Late st Contact Info) Description 05/27/2020 Lab Requisition [facility] Pathology & Laboratory Medicine - [address] [id number] Outr Resulting Lab, Provider Social History Tobacco [...] Comments CHLAMYDIA/N. GONORRHOEAE AMPLIFIED NUCLEIC ACID Routine 05/26/2020 21:41 EST documented in this encounter Results * CHLAMYDIA/N. GONORRHOEAE AMPLIFIED RNA (05/26/2020 21:41 EST) Neisseria gonorrhoeae Result Negative Negative 05/29/2020 14:35 EST [facility] Chlamydia trachomatis Result Negative Negative 05/29/2020 14:35 EST [facility] Swab ENTIRE WALL OF CERVIX / Unknown 05/26/2020 21:41 EST 05/28/2020 19:31 EST Provider Outr Resulting Lab MICROBIOLOGY - GENERAL ORDERABLES [facility] [address] [place] [address] documented in this encounter Visit Diagnoses Not on filedocumented in this encounter Additional Health Concerns Infection Onset Date Last Indicated Resolved Time COVID-19 10/09/2021 10/09/2021 10/29/2021 22:1 5 EDT documented as of this encounter Care Teams County Library Director Relationship Specialty Start Date End Date Brian Santos MD [address] [place] [phone] PCP - General 02/23/15 documented as of this encounter
--- OUTSIDE RECORDS SUMMARY | 2023-12-09 09:07 | XMS_ITS | Encounter Summary ---
Author Organization [facility] [place] [address] Care Team Providers Care Fork Lift Mechanic Name Role Phone Dayanna Peters MD Primary Care Provider Encounter Details Date Type Department Care Team (Late st Contact Info) Description 02/18/2022 Ancillary Procedure [place] [address] Bijan Felipe MD [facility] [place] [address] Social History Tobacco Use Types Packs/Day Years Used Date Smoking Tobacco: Never Smokeless Tobacco: Never Sex and Gender Information Value Date Recorded Sex Assigned at Not on file Gender Identity Not on file Sexual Orientation Not on file documented as of this encounter Plan of Treatment Not on file documented as of this encounter Procedures Procedure Name Priority Date/Time Associated Diagnosis Comments FILM LIBRARY STORAGE ONLY ULTRASOUND STUDY Routine 02/18/2022 12:00 AM EST documented in this encounter Results * Film Library- Storage Only Ultrasound Study (02/18/2022 12:00 AM EST) Narrative RAMIREZ - 02/20/2022 1:14 PM EST This exam is auto-finalizing. It's purpose is for storage only. Bijan Felipe MD G FILM LIBRARY ORD ERABLES [place], [place] documented in this encounter Visit Diagnoses Not on filedocumented in this encounter Care Teams Fork Lift Mechanic Relationship Specialty Start Date End Date Dayanna Peters MD [facility] CHILD ADVOCACY & [place] [address] PCP - General 03/06/10 02/20/22 documented as of this encounter
--- OUTSIDE RECORDS SUMMARY | 2023-12-09 09:07 | XMS_ITS | Encounter Summary ---
Author Organization [facility] Address [address] [place] [address] Care Team Providers Care Restaurant Shift Leader Name Role Phone Brian Santos MD Primary Care Provider [phone] Encounter Details Date Type Department Care Team (Late st Contact Info) Description 03/12/2021 Lab Requisition [facility] Pathology & Laboratory Medicine - [address] [address] Outr Resulting Lab, Provider Social History Tobacco [...] Procedure Name Priority Date/Time Associated Diagnosis Comments RUBELLA IGG ANTIBODY Routine 03/12/2021 11:00 EST VARICELLA IGG ANTIBODY Routine 03/12/2021 11:00 EST documented in this encounter Results * VARICELLA IGG ANTIBODY (03/12/2021 11:00 EST) Varicella IgG Ab Positive See Note 03/13/2021 10:15 EST [facility] Comment:Presence of detectab le Varicella Zoster virus IgG antibodies. Blood VENOUS BLOOD / Unknown 03/12/2021 11:00 EST 03/12/2021 15:57 EST Provider Outr Resulting Lab IMMUNOLOGY A ND SEROLOGY ORDERABLES Performing Organization Address [facility] Co de Phone Number [facility] [address] [place] [address] * RUBELLA IGG ANTIBODY (03/12/2021 11:00 EST) Rubella IgG Ab Negative See Note 03/13/2021 10:17 EST [facility] Comment:Sample is considered negative for IgG antibodies to Rubella virus. A negative result presumes that immunity has not been acquired. If exposure to Rubella virus is suspected despite a negative finding, a second specimen should be collected and tested for Rubella IgG Ab one or two weeks later. Blood VENOUS BLOOD / Unknown 03/12/2021 11:00 EST 03/12/2021 15:57 EST Provider Outr Resulting Lab CHEMISTRY & BLOOD GAS ORDERABLES Performing Organization Address [facility] Co de Phone Number [facility] [address] [place] [address] documented in this encounter Visit Diagnoses Not on filedocumented in this encounter Additional Health Concerns Infection Onset Date Last Indicated Resolved Time COVID-19 10/09/2021 10/09/2021 10/29/2021 22:1 5 EDT documented as of this encounter Care Teams Restaurant Shift Leader Relationship Specialty Start Date End Date Brian Santos MD [address] [place] [address] PCP - General 02/23/15 documented as of this encounter
--- OUTSIDE RECORDS SUMMARY | 2023-12-09 09:07 | XMS_ITS | Encounter Summary ---
[place] [address] Care Team Providers Care Transmission Operator Name Role Phone Dayanna Peters MD Primary Care Provider Encounter Details Date Type Department Care Team (Latest Contact Info) Description 02/19/2018 12:53 PM EST - 02/19/2018 11:59 PM EST Hospital Encounter [place] [address] Asthma, unspecified asthma severity, unspecified whether complicated, unspecified whether persistent Discharge Disposition: Home Social History Tobacco Use Types Packs/Day Years Used Date Smoking Tobacco: Never Smokeless Tobacco: Never Sex and Gender Information Value Date Recorded Sex Assigned at Not on file Gender Identity Not on file Sexual Orientation Not on file documented as of this encounter Medications at Time of Discharge [...] 1 02/02/2018 documented as of this encounter Procedure Notes * Duane Mcknight MD - 02/19/2018 11:59 PM ESTProcedure(s): PFT CARDIOPULMONARY EXERCISE TEST (CPEX) STATIONARY BIKE ERGOMETER Pre-Procedure Diagnose(s): OSMAN (dyspnea on exertion) Images from the original note were not included. EXERCISE INDUCED BRONCHOCONSTRICTION TEST REPORT SECTION OF PULMONARY/CRITICAL CARE MEDICINE Date of Testin02/19/2018 Patient Name: Lawanda Mcdaniel Height: 62.9 Weight: 142 lbs Requesting Provider: Kenton Orlando MD Indication for Testing: Exclude Exercise Induced Bronchoconstriction Baseline Data: ?? Spirometry was normal: Baseline FEV1/FVC was 0.83, FEV1 was 91% predicted and FVC was 98% predicted. The FENO was 21 ppb ?? Oxygen saturation at rest was 98% on room air ?? Resting blood pressure was 118/66 ?? Twelve-lead ECG at rest showed sinus tachycardia with a resting heart rate of 100 beats per minute. Q waves are present in leads II, III, aVF, V5 and V6. Exercise Test Protocol: ?? Incremental exercise testing was performed on the treadmill ergometer at an average speed of 3.5mph and a slope of 12% ?? Total exercise time was 11 minutes 4 seconds ?? Peak EUGENIO ratings of breathlessness and leg discomfort were 9 and 6, respectively ?? Symptoms were recreated and the test was terminated General: ?? Peak VO2 of 31.5 ml/kg/min achieved (86% of predicted) ?? Peak RER of 1.3 ?? Peak O2 pulse of 11 ml/beat (97% predicted) Cardiac: ?? Peak heart was 179 beats/minute, or 88% of predicted maximum value ?? Blood pressure was not assessed at peak exercise, was 120/68 at recovery ?? Twelve-lead ECG during exercise showed no significant changes Respiratory: ?? Peak exercise ventilation was 65.6 liters/minute or 56% of the estimated maximum voluntary ventilation ?? The calculated breathing reserve at peak exercise was 44% (normal >15%) ?? The pattern of breathing was normal during peak exercise, respiratory rate and tidal volume increased appropriately ?? Flow volume loops demonstrated appropriate increases in expiratory and inspiratory flow during exercise, without evidence of vocal cord dysfunction ?? Oxygen saturation was 98% at rest and 98% at peak exercise ?? There was a maximal change in FEV1 from baseline of 7%, observed at 5 minutes post cessation of exercise Interpretation: Exercise capacity was normal. This was no evidence of significant exercise- induced bronchoconstriction, and flow-volume loops did not demonstrate evidence of vocal cord dysfunction. Q waves in leads II, III, aVF, V5 and V6 may be normal in the pediatric population according to Jamel Funes and Alejo. Paediatric electrocardiography. BMJ. 2002;324(2134):1382-5, however clinically correlate for prior history of congenital cardiac abnormalities, Kawasaki's disease or other disorders that may causecardiac ischemia in the patient's age range. No significant ST segment deviations were noted duringor after exercise. Discussed with Dr. Roxanna Gonzalez MD Pulmonary and Critical Care Medicine Fellow PGY 5 Pager [phone] documented in this encounter Miscellaneous Notes * Addendum Note - Shravan Gonzalez MD - 02/19/2018 11:59 PM ESTEncounter addended by: Shravan Gonzalez MD on: 02/26/2018 5:55 PM Actions taken: Sign clinical note * Addendum Note - Duane Mcknight MD - 02/19/2018 11:59 PM ESTEncounter addended by: Duane Mcknight MD on: 03/09/2018 10:48 AM Actions taken: Sign clinical note documented in this encounter Plan of Treatment Pending Results Name Type Priority Associated Diagnoses Date /Time Pulmonary Function Testing PFT Routine Asthma, unspecified asthma severity, unspecified whether complicated, unspecified whether persistent 02/19/2018 3:36 PM EST Scheduled Orders Name Type Priority Associated Diagnoses Orde r Schedule Pulmonary Function Testing PFT Routine Asthma, unspecified asthma severity, unspecified whether complicated, unspecified whether persistent 1 Occurrences starting 02/19/2018 until 02/19/2018 documented as of this encounter Visit Diagnoses Diagnosis Asthma, unspecified asthma severity, unspecified whether complicated, unspecified whether persistent documented in this encounter Care Teams Transmission Operator Relationship Specialty Start Date End Date Dayanna Peters MD [facility] CHILD ADVOCACY & [place] [address] PCP - General 03/06/10 02/20/22 documented as of this encounter
--- OUTSIDE RECORDS SUMMARY | 2023-12-09 09:07 | XMS_ITS | Encounter Summary ---
Author Organization [facility] Address [address] [place] [address] Care Team Providers Care Frontend Engineer Name Role Phone Brian Santos MD Primary Care Provider [phone] Encounter Details Date Type Department Care Team (Late st Contact Info) Description 03/24/2023 Lab Requisition [facility] Pathology & Laboratory Medicine - [address] [address] Outr Resulting Lab, Provider Social History Tobacco [...] 1/2 ANTIGEN AND ANTIBODY, 4TH GENERATION Routine 03/22/2023 11:30 EST documented in this encounter Results * HIV 1/2 ANTIGEN AND ANTIBODY, 4TH GENERATION (03/22/2023 11:30 EST) HIV 1 and 2 Antibody/p24 Antigen, 4th Generation Negative Negative 03/24/2023 23:37 EST [facility] Comment:If acute HIV-1 infec tion is suspected in a high risk patient, submit plasma specimen for HIV-1 RNA quantitation test. Blood VENOUS BLOOD / Unknown 03/22/2023 11:30 EST 03/24/2023 21:59 EST Narrative [facility] - 03/24/2023 23:37 EST Fourth Generation assay performed on the Siemens Centaur XPT. Provider Outr Resulting Lab IMMUNOLOGY A ND SEROLOGY ORDERABLES [facility] [address] [place] [address] documented in this encounter Visit Diagnoses Not on filedocumented in this encounter Care Teams Frontend Engineer Relationship Specialty Start Date End Date Brian Santos MD [address] [place] [address] PCP - General 02/23/15 documented as of this encounter
--- OUTSIDE RECORDS SUMMARY | 2023-12-09 09:07 | XMS_ITS | Encounter Summary ---
Author Organization [facility] Address [address] [place] [address] Care Team Providers Care Pit Steward Name Role Phone Brian Santos MD Primary Care Provider [phone] Encounter Details Date Type Department Care Team (Late st Contact Info) Description 07/04/2022 Lab Requisition [facility] Pathology & Laboratory Medicine - [address] [address] Outr Resulting Lab, Provider Social History Tobacco [...] Comments CHLAMYDIA/N. GONORRHOEAE AMPLIFIED NUCLEIC ACID Routine 07/04/2022 12:00 EDT documented in this encounter Results * CHLAMYDIA/N. GONORRHOEAE AMPLIFIED RNA (07/04/2022 12:00 EDT) Neisseria gonorrhoeae Result Negative Negative 07/05/2022 14:16 EDT [facility] Chlamydia trachomatis Result Negative Negative 07/05/2022 14:16 EDT [facility] Swab ENTIRE ENDOCERVIX / Unknown 07/04/2022 12:00 EDT 07/04/2022 21:42 EDT Provider Outr Resulting Lab MICROBIOLOGY - GENERAL ORDERABLES [facility] [address] [place] [address] documented in this encounter Visit Diagnoses Not on filedocumented in this encounter Care Teams Pit Steward Relationship Specialty Start Date End Date Brian Santos MD [address] [place] [phone] PCP - General 02/23/15 documented as of this encounter
--- OUTSIDE RECORDS SUMMARY | 2023-12-09 09:07 | XMS_ITS | Encounter Summary ---
Author Organization [facility] Address [address] [place] [address] Care Team Providers Care Director Of Adult Epilepsy Name Role Phone Brian Santos MD Primary Care Provider [phone] Encounter Details Date Type Department Care Team (Late st Contact Info) Description 08/17/2021 Lab Requisition [facility] Pathology & Laboratory Medicine - [address] [address] Outr Resulting Lab, Provider Social History Tobacco [...] Comments CHLAMYDIA/N. GONORRHOEAE AMPLIFIED NUCLEIC ACID Routine 08/16/2021 14:30 EDT documented in this encounter Results * CHLAMYDIA/N. GONORRHOEAE AMPLIFIED RNA (08/16/2021 14:30 EDT) Neisseria gonorrhoeae Result Negative Negative 08/20/2021 13:51 EDT [facility] Chlamydia trachomatis Result Negative Negative 08/20/2021 13:51 EDT [facility] Swab ENTIRE ENDOCERVIX / Unknown 08/16/2021 14:30 EDT 08/17/2021 19:17 EDT Provider Outr Resulting Lab MICROBIOLOGY - GENERAL ORDERABLES [facility] [address] [place] [address] documented in this encounter Visit Diagnoses Not on filedocumented in this encounter Additional Health Concerns Infection Onset Date Last Indicated Resolved Time COVID-19 10/09/2021 10/09/2021 10/29/2021 22:1 5 EDT documented as of this encounter Care Teams Director Of Adult Epilepsy Relationship Specialty Start Date End Date Brian Santos MD [address] [place] [phone] PCP - General 02/23/15 documented as of this encounter
--- OUTSIDE RECORDS SUMMARY | 2023-12-09 09:07 | XMS_ITS | Encounter Summary ---
Author Organization [facility] Address [address] [place] [address] Care Team Providers Care Chisel Mortiser Operator Name Role Phone Brian Santos MD Primary Care Provider [phone] Encounter Details Date Type Department Care Team (Latest Contact Info) Description 11/14/2022 Travel Social History Tobacco Use Types Packs/Day [...] Recorded In the last 10 days, have yo u been in contact with someone who was confirmed or suspected to have Coronavirus/COVID-19? No / Unsure 11/14/2022 17:59 EDT documented as of this encounter Functional Status Functional Status Response Date of Assess ment Are you deaf or do you have serious difficulty h earing? No 11/14/2022 documented as of this encounter Plan of Treatment Not on file documented as of this encounter Visit Diagnoses Not on filedocumented in this encounter Care Teams Chisel Mortiser Operator Relationship Specialty Start Date End Date Brian Santos MD [address] [facility] [place] [address] PCP - General 02/23/15 documented as of this encounter
--- OUTSIDE RECORDS SUMMARY | 2023-12-09 09:07 | XMS_ITS | Encounter Summary ---
Author Organization [facility] Address [address] [place] [address] Care Team Providers Care Bilingual Account Manager Name Role Phone Brian Santos MD Primary Care Provider [phone] Reason for Referral * Consult (3 - 10 Business Days) - Authorization Not Required Specialty Diagnoses / Procedures Referred By Conner olguin Referred To Contact Orthopedic Surgery Diagnoses Wrist pain, acute, left Aurelia Gonzales MD [address] [place] [address] [facility] [address] [place] [address] Referral ID Status Reason Start Date Expiration Date Visits Requested Visits Authorized [id number] Authorization Not Required Specialty Services Required 10/18/2020 1 1 Question Answer Reason for Request: eval and treat wrist pain, possible fracture on xray, needs full eval for a work physical Reason for Visit * Reason Comments Wrist Pain Pt ambulatory to tri age from home c/o left wrist pain x1.5 weeks. Seen and dx tendonitis, and then seen at [facility] and dx with fx. States they placed her in a wrist splint and it got worse. Arrives with no splint in place. +CSMT Encounter Details Date Type Department Care Team (Latest Contact Info) Description 10/18/2020 18:12 EDT - 10/18/2020 19:18 EDT Hospital Encounter [facility] - [address] [address] Aurelia Gonzales MD [address] [place] [phone] Wrist pain, acute, left (Primary Dx) Discharge Disposition: Home or Self [...] Exposure Response Date Recorded In the last month, have you been in contact with someone who was confirmed or suspected to have Coronavirus / COVID-19? No / Unsure 10/18/2020 16:39 EDT documented as of this encounter Last Filed Vital Signs Vital Sign Reading Time Taken Comments Blood Pressure 133/76 10/18/2020 1719 EDT Pulse 92 10/18/2020 1719 EDT Temperature 37 ??C (98.6 ??F) 10/18/2020 1719 EDT Respiratory Rate 18 10/18/2020 1719 EDT Oxygen Saturation 98% 10/18/2020 1719 EDT Inhaled Oxygen Concentration - - Weight 65.3 kg (144 lb) 10/18/2020 1719 EDT Height 160 cm (5' 3) 10/18/2020 1719 EDT Body Mass Index 25.51 10/18/2020 1719 EDT documented in this encounter Discharge Instructions * Discharge Instructions* Aurelia Gonzales MD - 10/18/2020 18:59 EDT You have a possible fracture (broken bone) at the wrist We have splinted it to support it. Wear the splint until you're seen in follow up. Keep it dry. Do not take it off. Call the orthopedic clinic at the number listed to arrange an appointment for within the next week.They will be able to do a full evaluation and possibly cast you if that is what is needed. This maynot actually be a fracture. You may use ibuprofen up to 600 mg every 6 hours, and/or acetaminophen per the package instructionsfor pain. Ice may be helpful. Keep the wrist elevated. Follow-up acutely if you have worsening pain, numbness or tingling, change in colors of the fingers. documented in this encounter Discharge Disposition Disposition Code Departure Means Destination Home or Self Usp documented in this encounter ED Notes * Yelitza Harry RN - 10/18/2020 1905 EDT Pt alert/oriented/ambulatory with steady gait. Discharged to home. Discharge instructions reviewed,emphasis on the importance of appropriate follow up care. Patient verbalized understanding * Aurelia Gonzales MD - 10/18/2020 1856 EDT DOS: 10/18/2020 Chief Complaint: Chief Complaint Patient presents with ??? Wrist Pain Pt ambulatory to triage from home c/o left wrist pain x1.5 weeks. Seen and dx tendonitis, and then seen at [facility] and dx with fx. States they placed her in a wrist splint and it got worse. Arrives with no splint in place. +CSMT Assessment and Plan The patient has 3 months of wrist pain that got worse a week and a half ago. She was diagnosed witha fracture. She felt she was getting worse in the splint and took it off. She went for work physical today and they were told she needs to be in a cast to be able to work. X-rays retaken. She does have a questionable fracture at that tip of the distal radius. She does have tenderness there. She wasplaced in a volar wrist splint and referred to orthopedics for further evaluation and treatment. She is angry because she just wants a cast so she can work. We do not make casts here. Rest, ice, elevation, ibuprofen or Tylenol as needed. Final diagnoses: Wrist pain, acute, left Procedures No results found for this visit on 10/18/20. Radiology orders: XR WRIST LEFT 3 OR MORE VIEWS Consult orders: None Imaging Results XR WRIST LEFT 3 OR MORE VIEWS (Final result) Result time 10/18/20 18:11:36 Final result Impression: Questionable fracture through the medial aspect of the left distal radius. Narrative: XR WRIST LEFT 3 OR MORE VIEWS 10/18/2020 5:25 PM Clinical History/Comments: wrist pain x1.5 weeks, dx fx at OSH Comparisons: None. TECHNIQUE: 4 views of the left wrist. FINDINGS: There is a linear lucency through the medial aspect of the distal radius only appreciated on the frontal view. The left wrist is otherwise unremarkable. No orders to display The patient is a 20 y.o. female who presents today with Wrist Pain (Pt ambulatory to triage from home c/o left wrist pain x1.5 weeks. Seen and dx tendonitis, and then seen at [facility] and dx with fx. States they placed her in a wrist splint and it got worse. Arrives with no splint in place. +CSMT) HPI Review of Systems No current facility-administered medications for this encounter. No current outpatient medications on file. No Known Allergies There are no problems to display for this patient. No past medical history on file. Social History Tobacco Use ??? Smoking status: Not on file Substance Use Topics ??? Alcohol use: Not on file ??? Drug use: Not on file No family history on file. BP 133/76 Pulse 92 Temp 98.6 ??F (37 ??C) (Temporal) Resp 18 Ht 160 cm (63) Wt 65.3 kg (144 lb) LMP (Within Days) SpO2 98% BMI 25.51 kg/m?? Physical Exam Vitals and nursing note reviewed. Constitutional: General: She is not in acute distress. HENT: Head: Atraumatic. Pulmonary: Effort: Pulmonary effort is normal. No respiratory distress. Musculoskeletal: Comments: She has no swelling or discoloration of the left wrist. She has normal pulses and capillary refill. She is tender at the distal radius but she is also tender along the entire radius and some along the ulna. More so at the tip. Has pain with range of motion at the wrist. Skin: General: Skin is dry. Neurological: Mental Status: She is alert and oriented to person, place, and time. PCP: Brian Santos No supervision required. Urgent Care Course A medical screening exam was performed. DISPOSITION: No disposition on file The patient's pain was managed to an adequate level weighing risk vs. benefit of further medications. Upon departure from [facility], the patient's pain was 5 on a zero to ten scale. Any further pain treatment will be at the discretion of the provider following up with the patient based on their clinical assessment . Condition at departure from the [facility] : Good MDM 10/18/2020 18:56 * Yelitza Harry, VALDEMAR - 10/18/2020 1824 EDT Pt presents to with CC left wrist pain x 3 months. Pt states she is unsure of what caused initial injury. Pt states that she was originally dx with tendinitis 3 months ago, and was then dx with a L. Fracture 1.5 weeks ago. Pt states that she was placed in a splint, which she removed 2 days ago because of worsening pain. Pt states that she went to get a physical for her job today and was told that the arm needed to be in a cast. +PMS * Zeb Jordan RN - 10/18/2020 1720 EDT Chief Complaint Patient presents with ??? Wrist Pain Pt ambulatory to triage from home c/o left wrist pain x1.5 weeks. Seen and dx tendonitis, and then seen at [facility] and dx with fx. States they placed her in a wrist splint and it got worse. Arrives with no splint in place. +CSMT Pt masked, negative COVID screen, fully vaccinated. Placed back in WR, instructed to inform front office director if any changes before being roomed. documented in this encounter Plan of Treatment Scheduled Referrals Name Type Priority Associated Diagnoses Order Schedule AMB CONS/FOLLOW UP ORTHOPEDICS Outpatient Referral Routine Wrist pain, acute, left Ordered: 10/18/2020 documented as of this encounter Procedures Procedure Name Priority Date/Time Associated Diagnosis Comments XR WRIST LEFT 3 OR MORE VIEWS STAT 10/18/2020 17:30 EDT documented in this encounter Results * XR WRIST LEFT 3 OR MORE VIEWS (10/18/2020 17:30 EDT) Anatomical Region Laterality Modality Upper Extremities Left Computed Radio graphy 10/18/2020 18:1 1 EDT Impressions 10/18/2020 18:11 EDT Questionable fracture through the medial aspect of the left distal radius. Narrative 10/18/2020 18:11 EDT XR WRIST LEFT 3 OR MORE VIEWS ??10/18/2020 5:25 PM Clinical History/Comments: wrist pain x1.5 weeks, dx fx at OSH Comparisons: None. TECHNIQUE: 4 views of the left wrist. FINDINGS: There is a linear lucency through the medial aspect of the distal radius only appreciated on the frontal view. The left wrist is otherwise unremarkable. Procedure Note Yohannes De La Rosa MD - 10/18/2020 XR WRIST LEFT 3 OR MORE VIEWS 10/18/2020 5:25 PM Clinical History/Comments: wrist pain x1.5 weeks, dx fx at OSH Comparisons: None. TECHNIQUE: 4 views of the left wrist. FINDINGS: There is a linear lucency through the medial aspect of the distal radiusonly appreciated on the frontal view. The left wrist is otherwiseunremarkable. IMPRESSION Questionable fracture through the medial aspect of the left distalradius. Aurelia Gonzales MD IMG DIAGNOST IC IMAGING ORDERABLES documented in this encounter Visit Diagnoses Diagnosis Wrist pain, acute, left- Primary documented in this encounter Active and Recently Administered Medications Orders Medications Ordered That Himanshu ht Not Have Been Administered Count Last Ordered Date First Ordered Date acetaminophen (TYLENOL) solu tion unit dose cup 650 mg 1 10/18/2020 General Supply Count Last Ordered Date First Or dered Date ED SPLINT 1 10/18/2020 documented in this encounter Care Teams Bilingual Account Manager Relationship Specialty Start Date End Date Brian Santos MD [address] [place] [address] PCP - General 02/23/15 documented as of this encounter
--- OUTSIDE RECORDS SUMMARY | 2023-12-09 09:07 | XMS_ITS | Encounter Summary ---
[facility] [place] [address] Care Team Providers Care Boilermaker Industrial Boilers Name Role Phone Dayanna Peters MD Primary Care Provider Encounter Details Date Type Department Care Team (Late st Contact Info) Description 02/20/2022 Telephone [place] [phone] Ruma Urbina MD [facility] [place] [address] Social History Tobacco Use Types Packs/Day Years Used Date Smoking Tobacco: Never Smokeless Tobacco: Never Sex and Gender Information Value Date Recorded Sex Assigned at Not on file Gender Identity Not on file Sexual Orientation Not on file documented as of this encounter Miscellaneous Notes * Telephone Encounter - Ruma Urbina MD - 02/20/2022 11:52 AM EST Images from the original note were not included. DIVISION OF GASTROENTEROLOGY [facility]PATOLOG[facility]SF[facility] CALL Name: Lawanda Mcdaniel Date: 02/20/2022 Time: 11:52 AM Referring Location: [facility] Referring Provider: Andrade Mendenhall MD 21 yo female who presented 2 days ago to [facility] with acute cholecystitis. She underwent cholecystectomy which was complicated by complete transection of the CBD 1 cm distal to the cystic duct. This wasimmediately recognized and the cholecystectomy was converted to open. Her gallbladder was removed and the CBD was repaired with a duct to duct anastomosis. Dr. Mendenhall intended to place a t- tube however there were none available. Instead he placed a ureteral stent in the duct and tied a prolene suture to the middle of the stent; the suture is coming out the skin through a lap site. She is having minimal incisional pain and is up and walking around. Her TB is 1.5. Based on the information provided to me, would be reasonable to plan for ERCP with placement of a biliary stent. Will plan for here and back ERCP tomorrow. I have asked her team to push any images that they have and to keep her NPO at [place]. She is not on any anticoagulation. This is not an official consult, as my recommendations are limited by my inability to interview andexamine the patient as well as personally review the medical record, imaging, and laboratory findings. Ruma Urbina MD Gastroenterology Fellow documented in this encounter Plan of Treatment Not on file documented as of this encounter Visit Diagnoses Not on filedocumented in this encounter Care Teams Boilermaker Industrial Boilers Relationship Specialty Start Date End Date Dayanna Peters MD [facility] [place] [address] PCP - General 03/06/10 02/20/22 documented as of this encounter
--- OUTSIDE RECORDS SUMMARY | 2023-12-09 09:07 | XMS_ITS | Encounter Summary ---
Author Organization [facility] [place] [address] Care Team Providers Care Traffic Control Flagger Name Role Phone None Primary Care Provider Unavailabl e Reason for Visit * Auth/Cert Specialty Diagnoses / Procedures Referred By Conner t Referred To Contact Diagnoses Injury of bile duct bile duct injury back and forth Procedures PRO ERCP,DIAGNOSTIC PRO UPPER GI ENDOSCOPY, REMOV F.B. PRO ANESTH, UGI ENDOSCOPY ERCP PRO ANESTH, COMBINED UPPER OR LOWER ENDOSCOPY ERCP Bijan Felipe MD [facility] [address] [facility] Referral ID Status Reason Start Date Expiration Date Visits Re quested Visits Authorized [id number] 1 1 Encounter Details Date Type Department Care Team (Late st Contact Info) Description 02/21/2022 2:40 PM EST Ancillary [place] [phone] Social History Tobacco Use Types Packs/Day Years [...] XR ERCP Routine 02/21/2022 3:33 PM EST documented in this encounter Results * XR ERCP (02/21/2022 3:33 PM EST) Narrative RAD - 02/21/2022 3:33 PM EST See PACS for result report. Bijan Felipe MD IMG FILM LIBRARY ORD ERABLES [place], [place] documented in this encounter Visit Diagnoses Not on filedocumented in this encounter Care Teams Traffic Control Flagger Relationship Specialty Start Date End Date None None PCP - General 02/21/22 documented as of this encounter
--- OUTSIDE RECORDS SUMMARY | 2023-12-09 09:07 | XMS_ITS | Encounter Summary ---
Author Organization [facility] Address [address] [place] [address] Care Team Providers Care Dural Mechanic Name Role Phone Brian Santos MD Primary Care Provider Encounter Details Date Type Department Care Team (Late st Contact Info) Description 02/19/2022 Lab Requisition [facility] Medicine - [address] [address] Andrade Mendenhall MD [address] [place] [address], [address] [place], [place] [id number] Right upper quadrant pain Social History Tobacco Use Types Packs/Day Years [...] Procedure Name Priority Date/Time Associated Diagnosis Comments SURGICAL PATHOLOGY Today 02/18/2022 18 :50 EST Right upper quadrant pain documented in this encounter Results * SURGICAL PATHOLOGY (02/18/2022 18:50 EST) Note to Patient The following pathology results have been interpreted by your pathologist and may be available to you before your health provider has had the opportunity to review them. Please allow time for your provider to receive these results and explore management options, if applicable. 02/22/2022 13:46 EST [facility] Final Diagnosis A. GALLBLADDER, CHOLECYSTECTOMY: - Cholelithiasis (gross only). - Gallbladder mucosa with no significant pathologic abnormality. 02/22/2022 13:46 [facility] Attestation There was significant resident/fellow involvement in the diagnostic evaluation of this case. By the signature below, the attending physician certifies that they have personally conducted a gross and/or microscopic examination of the described specimens and rendered or confirmed the above diagnosis. 02/22/2022 13:46 [facility] at 1346 Clinical History Right UQ pain, cholelithiasis; clinical diagnosis code: R10.11 02/22/2022 13:46 [facility] Gross Description A. Received in formalin labelled with proper patient identification (initials A, M) and gallbladder is an intact gallbladder with an attached segment of cystic duct (9.7 x 2.8 x 1.7 cm). A cystic duct lymph node is not present. The serosa is smooth, blue-green, and glistening. The mucosa is velvety green and the wall is 0.1 cm in thickness. The cystic duct lumen is patent and is 0.3 cm in diameter. The cystic duct margin is inked blue. An aggregate of yellow ovoid bosselated choleliths (3.0 x 2.5 x 0.4 cm) is present. Two health and safety representative sections and the en face cystic duct margin are submitted in A1. NEENA HENRY(ASCP) 02/20/2022 8:58 02/22/2022 13:46 [facility] Resident/Steve w: Reena Winston MD 02/22/2022 13:46 [facility] Performing Lab [facility] 02/22/2022 13:46 [facility] Scanned Images 02/22/2022 13:46 [facility] Tissue ENTIRE GALLBLADDER / Unknown 02/18/2022 18:50 EST 02/19/2022 17:45 EST Andrade Mendenhall MD PATHOLOGY ORDERABLES [facility] [address] [place] [address] documented in this encounter Visit Diagnoses Diagnosis Right upper quadrant pain Abdominal pain, right upper quadrant documented in this encounter Care Teams Dural Mechanic Relationship Specialty Start Date End Date Brian Santos MD [address] [place] [phone] PCP - General 02/23/15 documented as of this encounter
--- OUTSIDE RECORDS SUMMARY | 2023-12-09 09:07 | XMS_ITS | Encounter Summary ---
Author Organization [facility] Address [address] [place] [address] Care Team Providers Care Driver Guard Name Role Phone Brian Santos MD Primary Care Provider [phone] Encounter Details Date Type Department Care Team (Late st Contact Info) Description 12/05/2021 Lab Requisition [facility] Pathology & Laboratory Medicine - [address] [address] Hilda Valentino [address] [place] [address] [place] [address] Encounter for other general examination Social History Tobacco Use Types Packs/Day Years [...] Date/Time Associated Diagnosis Comments SURGICAL PATHOLOGY Today 12/05/2021 11 :36 EDT Encounter for other general examination documented in this encounter Results * SURGICAL PATHOLOGY (12/05/2021 11:36 EDT) Note to Patient The following pathology results have been interpreted by your pathologist and may be available to you before your health provider has had the opportunity to review them. Please allow time for your provider to receive these results and explore management options, if applicable. 12/10/2021 16:44 EDT [facility] Final Diagnosis A. FALLOPIAN TUBE, RIGHT, PARTIAL SALPINGECTOMY: - Fimbriated fallopian tube with no specific pathologic features. B. FALLOPIAN TUBE, LEFT, PARTIAL SALPINGECTOMY: - Fimbriated fallopian tube with no specific pathologic features. 12/10/2021 16:44 [facility] Attestation There was significant resident/fellow involvement in the diagnostic evaluation of this case. By the signature below, the attending physician certifies that they have personally conducted a gross and/or microscopic examination of the described specimens and rendered or confirmed the above diagnosis. 12/10/2021 16:44 [facility] at 1644 Clinical History Pt desired permanent sterilization 12/10/2021 16:44 [facility] Gross Description A. Received in formalin labelled with proper patient identification (initials A, M) and 1. RT fallopian tube is a fimbriated fallopian tube (7.0 cm in length x 0.8 cm in diameter). The serosa is brooks purple and smooth with a pedunculated paratubal cyst towards the distal end (cyst measures 1.0 cm in greatest dimension and has a stalk measuring 1.1 x 0.1 x 0.1 cm.) This paratubal cyst has a translucent wall, is clear fluid-filled with a smooth inner lining. Sectioning reveals a brooks firm cut surface with a pinpoint lumen throughout. Roofing Machine Tender sections of the specimen are submitted as follows: BLOCK ALEJANDRE A1-A2- entire longitudinally sectioned fimbriated end of fallopian tube, 4 sections A3- 2 cross-sections of fallopian tube including bisected paratubal cyst B. Received in formalin labelled with proper patient identification (initials A, M) and 2. LT fallopian tube is a fimbriated fallopian tube (7.5 cm in length x 0.8 cm in diameter). The serosa is brooks purple and smooth. Sectioning reveals a brooks firm cut surface with a pinpoint lumen throughout. Roofing Machine Tender sections are submitted as follows: BLOCK ALEJANDRE B1-B2- entire longitudinally sectioned fimbriated end of fallopian tube, 6 sections B3- 2 cross-sections of fallopian tube NEENA DEGROOT(ASCP) 12/06/2021 11:14 12/10/2021 16:44 [facility] Resident/Steve w: Andrew Stover MD 12/10/2021 16:44 EDT [facility] Performing Lab [facility] 12/10/2021 16:44 EDT [facility] Scanned Images 12/10/2021 16:44 EDT [facility] Tissue ENTIRE FALLOPIAN TUBE / Unknown 12/05/2021 11:36 EDT 12/05/2021 17:23 EDT Tissue specimen (specimen) FALLOPIAN TUBE STRUCTURE / Unknown 12/05/2021 11:36 EDT 12/05/2021 17:23 EDT Hilda Valentino PATHOLOGY ORDERABLES [facility] [address] [place] [address] documented in this encounter Visit Diagnoses Diagnosis Encounter for other general examination documented in this encounter Care Teams Driver Guard Relationship Specialty Start Date End Date Brian Santos MD [address] [place] [phone] PCP - General 02/23/15 documented as of this encounter
--- OUTSIDE RECORDS SUMMARY | 2023-12-09 09:07 | XMS_ITS | Encounter Summary ---
Author Organization [facility] [place] [address] Care Team Providers Care Irrigation Equipment Mechanic Name Role Phone None Primary Care Provider Unavailabl e Reason for Visit * Auth/Cert (Routine) Specialty Diagnoses / Procedures Referred By Controsana t Referred To Contact Diagnoses stent maintainence Procedures PRO ERCP,DIAGNOSTIC ERCP Bijan Felipe MD [facility] [place] [address] [facility] Referral ID Status Reason Start Date Expiration Date Visits Re quested Visits Authorized [id number] 1 1 Encounter Details Date Type Department Care Team (Latest Contact Info) Description 06/10/2022 2:36 PM EST - 06/10/2022 6:55 PM EST Hospital Encounter [place] [address] Bijan Felipe MD [facility] [place] [address] Bile duct stricture (Primary Dx) Discharge Disposition: [...] Sign Reading Time Taken Comments Blood Pressure 108/76 06/10/2022 6:20 PM EST Pulse 68 06/10/2022 3:02 PM EST Temperature 36.9 ??C (98.5 ??F) 06/10/2022 3:02 PM ES T Respiratory Rate 18 06/10/2022 6:20 PM EST Oxygen Saturation 100% 06/10/2022 6:20 PM EST Inhaled Oxygen Concentration - - [...] the day after the procedure, use an kfta-qtt-pxacmrp spray to numb your throat. Sucking on [...] occurs, please contact your Doctor. Please call [phone] before 8pm Mon-Fri with problems, questions or concerns. If you call after 8pm or on weekends, call the Hospital at [phone] and ask to speak to the Scrubber System Attendant automation engineering technician and the tube machine operator helper will contact that person for you. When should you call for help? Call 474 anytime you think you may need emergency [...] problems, like Where can you learn more? [facility]- View your After Visit Summary and more online at [email or web address] If you would like to provide [...] cost to you. Content Version: 12.2 ?? 3510-3708 [employer]. Care instructions adapted under license by [facility] [facility]. If you have questions about a medical condition or this instruction, always ask your healthcare professional. [employer] disclaims any warranty or liability for your [...] Operative Note Patient Name: Lawanda Mcdaniel : [id number] MR#: [id number] Case Date: 06/10/2022 Surgeon: Surgeon(s) and Role: * Bijan Felipe MD - Primary Preoperative diagnosis: stent maintainence Postoperative diagnosis: * No post-op diagnosis entered * Procedure(s) (LRB): ERCP, W REMOVAL& EXCHANGE STENT, BILIARY/PANCREATIC DUCT (N/A) CHOLANGIOGRAM Anesthesia: General Full procedure note is documented under the Procedure section of [facility]. documented in this encounter Plan of [...] Or Pancreatic Duct Stent Removal & Exchange W/Dil&Wire([id number]) 06/10/2022 4:56 PM EST stent maintainence ERCP Routine 06/10/2022 4:50 PM EST documented in this encounter Results * XR ERCP (06/10/2022 5:38 PM EST) Narrative [facility] - 06/10/2022 5:39 PM EST See PACS for result report. Bijan Felipe MD IMG FILM LIBRARY ORD ERABLES FRED Montanez * ERCP (06/10/2022 4:50 PM EST) ERCP [facility] Procedure Date: 06/10/2022 4:50 PM ? Patient Name: Lawanda Mcdaniel ? Date of : 2000 ? Age: 21 ? Order #: [id number] ? Instrument Name: [id number] ? Procedure: ? ERCP Indications: ? Follow-up of bile leak, Stent change Providers: ? Bijan Felipe MD, Stephan Figueroa ? , RN, Nova Guaman, ? Nuclear Powerplant Mechanic Referring MD: ?Dayanna Peters MD, Andrade Mendenhall Medicines: ? General Anesthesia, Indomethacin ? 100 mg [place] Complications: ? No immediate complications. Procedure: ? [...] A biliary stent was visible on the brazer induction film ? adjacent to surgical clips. The [...] a single internal flap were placed ? [id number] into the common bile duct across the [...] dilated to 6 mm ? followed by [id number]-[id number] 10 Fr ? stent placement across the [...] RN) documented in this encounter Care Teams Irrigation Equipment Mechanic Relationship Specialty Start Date End Date None None PCP - General 02/21/22 documented as of this encounter
--- OUTSIDE RECORDS SUMMARY | 2023-12-09 09:07 | XMS_ITS | Encounter Summary ---
Author Organization [facility] Address [address] [place] [address] Care Team Providers Care Watch Technician Name Role Phone Brian Santos MD Primary Care Provider [phone] Encounter Details Date Type Department Care Team (Late st Contact Info) Description 03/24/2023 Lab Requisition [facility] Pathology & Laboratory Medicine - [address] [address] Outr Resulting Lab, Provider Social History Tobacco [...] RNA BY PCR Routine 03/22/2023 11:30 EST HEPATITIS B SURFACE ANTIGEN Routine 03/22/2023 11:30 EST documented in this encounter Results * HEPATITIS B SURFACE ANTIGEN (03/22/2023 11:30 EST) Hep B Surface Ag Negative Negative 03/24/2023 23:27 EST [facility] Blood VENOUS BLOOD / Unknown 03/22/2023 11:30 EST 03/24/2023 21:59 EST Provider Outr Resulting Lab CHEMISTRY & BLOOD GAS ORDERABLES Performing Organization Address [facility] Co de Phone Number [facility] [address] [place] [address] * HEPATITIS C AB W REFLEX TO HCV RNA BY PCR (03/22/2023 11:30 EST) Hep C Antibody Negative Negative 03/24/2023 23:34 EST [facility] Blood VENOUS BLOOD / Unknown 03/22/2023 11:30 EST 03/24/2023 21:59 EST Provider Outr Resulting Lab CHEMISTRY & BLOOD GAS ORDERABLES Performing Organization Address [facility] de Phone Number [facility] [address] [place] [address] documented in this encounter Visit Diagnoses Not on filedocumented in this encounter Care Teams Watch Technician Relationship Specialty Start Date End Date Brian Santos MD [address] [place] [phone] PCP - General 02/23/15 documented as of this encounter
--- OUTSIDE RECORDS SUMMARY | 2023-12-09 09:07 | XMS_ITS | Encounter Summary ---
Author Organization Formerly [facility] [place] [address] Care Team Providers Care Wastewater Supervisor Name Role Phone None Primary Care Provider Unavailabl e Reason for Visit * Auth/Cert Specialty Diagnoses / Procedures Referred By Conner t Referred To Contact Diagnoses Injury of bile duct bile duct injury back and forth Procedures PRO ERCP,DIAGNOSTIC PRO UPPER GI ENDOSCOPY, REMOV F.B. PRO ANESTH, UGI ENDOSCOPY ERCP PRO ANESTH, COMBINED UPPER OR LOWER ENDOSCOPY ERCP Bijan Felipe MD [facility] [place] [address] [facility] Referral ID Status Reason Start Date Expiration Date Visits Re quested Visits Authorized [id number] 1 1 Encounter Details Date Type Department Care Team (Latest Contact Info) Description 02/21/2022 12:22 PM EST - 02/21/2022 3:34 PM [facility] Hospital En[place] [address] Bijan Felipe MD [facility] [place] [address] Discharge Disposition: Other [facility] Social History Tobacco Use Types Packs/Day Years [...] Sign Reading Time Taken Comments Blood Pressure 111/79 02/21/2022 3:20 PM EST Pulse 80 02/21/2022 12:32 PM EST Temperature - - Respiratory Rate - - Oxygen Saturation 98% 02/21/2022 3:20 PM EST Inhaled Oxygen Concentration - - [...] intermittent asthma who was recently admitted to [facility] with acute cholecystitis s/p CCY c/b complete [...] PM EST Ercp, W/Removal Stone, Mono/Pancr Ducts ([id number]) 02/21/2022 1:30 PM EST bile duct injury back and forth Ercp Biliary Or Pancreatic Duct Stent Removal & Exchange W/Dil&Wire([id number]) 02/21/2022 1:30 PM EST bile duct injury back and forth Ercp, Sphincterotomy ([id number]) 02/21/2022 1:30 PM EST bile duct injury back and forth ERCP Routine 02/21/2022 1:06 PM EST documented in this encounter Results * XR ERCP (02/21/2022 3:33 PM EST) Narrative [facility] - 02/21/2022 3:33 PM EST See PACS for result report. Bijan Felipe MD [facility] FILM LIBRARY ORD ERABLES Performing Organization Address City/State/[facility] Co de Phone Number [place], [place] * ERCP (02/21/2022 1:06 PM EST) ERCP [facility] Endoscopy Procedure Date: 02/21/2022 1:06 PM ? Patient Name: Lawanda Mcdaniel ? Date of : 2000 ? Age: 21 ? Order #: [id number] ? Instrument Name: [id number] ? Procedure: ? ERCP Indications: ? Bile leak from main duct injury, ? Stent change Providers: ? Bijan Felipe MD, Oswaldo Quinonez ? Gigi Pruitt Michael ? Sylvia Maravilla Referring : ?Dayanna M. Patno, MD, Andrade Mendenhall, ? MD Medicines: ? Monitored Anesthesia Care, ? Indomethacin 100 mg [place] Complications: ? No immediate complications. Procedure: ? [...] A biliary stent was visible on the yard jockey film in the ? RUQ. Surgical clips [...] Procedure Code(s): ? --- Professional --- ? 04966, Endoscopic retrograde ? cholangiopancreatography (ERCP); ? with [...] of ? biliary tract CPT copyright 2021 [employer]. All rights reserved. The codes documented in this report are preliminary and upon vortex operator review may be revised to meet current [...] Given 02/21/2022 3:05 PM EST 50 mcg lactated ringers infusion 100 mL/hr, Intravenous, [...] CRNA)1428 (Anesthesia Volume Adjustment - Provider: Julienne Adams CRNA)1437 (Stopped - Provider: Julienne Adams CRNA) documented in this encounter Care Teams Wastewater Supervisor Relationship Specialty Start Date End Date None None PCP - General 02/21/22 documented as of this encounter
--- OUTSIDE RECORDS SUMMARY | 2023-12-09 09:07 | XMS_ITS | Encounter Summary ---
Author Organization Formerly [facility] [place] [address] Care Team Providers Care Utility Mechanic Supervisor Name Role Phone Dayanna Peters MD Primary Care Provider [phone] Encounter Details Date Type Department Care Team (Late st Contact Info) Description 01/28/2018 [place] [id number] Kenton Orlando MD [facility] [address] [place] [address] Social History Tobacco Use Types Packs/Day Years Used Date Smoking Tobacco: Never Assessed Sex and Gender Information Value Date Recorded Sex Assigned at Not on file Gender Identity Not on file Sexual Orientation Not on file documented as of this encounter Progress Notes * Kenton Orlando MD - 01/28/2018 12:35 PM EDT Review of Records in anticipation of visit: Referred for evaluation of anaphylaxis 10/14/17 ED note Unknown trigger. Had eaten a cookie. Developed abrupt throat tightness, sob, tongue swelling. EMS provided epinephrine, hypoxic en transport. Meds include nexplanon, albuterol prn, fluoxetine Lungs clear, no hives on exam. Received H1 jerica, solumedrol, zofran, benadryl, zantac. Discharged with epipen rx 10/14/17 labs: ANC 2590, ALC 3600, AEC 30, AST 26, ALT 20 10/29/17 pcp note: Cookie had been chocolate M&M cookie, as well as skin contact with a linesperson pod. Since event, avoiding nuts. Rxn occurred 5-10 minutes after cookie; lips felt weird and got swollen. Tingling fingers, felt like she could barely breathe. Called mom and 911, EMS arrived, started vomiting. Hypoxic on initial eval. Apparently since event has been having chocolate, SF seed, soy but avoiding peanuts. No obvious stings. Hx of depression, mild intermittent asthma, and depression documented in this encounter Plan of Treatment Not on file documented as of this encounter Visit Diagnoses Not on filedocumented in this encounter Care Teams Utility Mechanic Supervisor Relationship Specialty Start Date End Date Dayanna Peters MD [facility] CHILD [facility]VOCAC[facility] [place] [address] PCP - General 03/06/10 02/20/22 documented as of this encounter
--- OUTSIDE RECORDS SUMMARY | 2023-12-09 09:07 | XMS_ITS | Encounter Summary ---
Author Organization [facility] Address [address] [place] [address] Care Team Providers Care Lumber Checker Name Role Phone Brian Santos MD Primary Care Provider Encounter Details Date Type Department Care Team (Late st Contact Info) Description 01/04/2021 Lab Requisition [facility] Pathology & Laboratory Medicine - [address] [address] Outr Resulting Lab, Provider Social History Tobacco [...] Comments CHLAMYDIA/N. GONORRHOEAE AMPLIFIED NUCLEIC ACID Routine 01/03/2021 16:30 EDT documented in this encounter Results * CHLAMYDIA/N. GONORRHOEAE AMPLIFIED RNA (01/03/2021 16:30 EDT) Neisseria gonorrhoeae Result Negative Negative 01/05/2021 14:21 EDT [facility] Chlamydia trachomatis Result Negative Negative 01/05/2021 14:21 EDT [facility] Swab ENTIRE ENDOCERVIX / Unknown 01/03/2021 16:30 EDT 01/04/2021 16:19 EDT Provider Outr Resulting Lab MICROBIOLOGY - GENERAL ORDERABLES [facility] [address] [place] [address] documented in this encounter Visit Diagnoses Not on filedocumented in this encounter Additional Health Concerns Infection Onset Date Last Indicated Resolved Time COVID-19 10/09/2021 10/09/2021 10/29/2021 22:1 5 EDT documented as of this encounter Care Teams Lumber Checker Relationship Specialty Start Date End Date Brian Santos MD [address] [place] [phone] PCP - General 02/23/15 documented as of this encounter
--- OUTSIDE RECORDS SUMMARY | 2023-12-09 09:07 | XMS_ITS | Encounter Summary ---
Author Organization [facility] Address [address] [place] [address] Care Team Providers Care Fox Farmer Name Role Phone Brian Santos MD Primary Care Provider [phone] Encounter Details Date Type Department Care Team (Late st Contact Info) Description 05/13/2023 Lab Requisition [facility] Pathology & Laboratory Medicine - [address] [address] Outr Resulting Lab, Provider Social History Tobacco [...] Comments CHLAMYDIA/N. GONORRHOEAE AMPLIFIED NUCLEIC ACID Routine 05/12/2023 12:30 EST documented in this encounter Results * CHLAMYDIA/N. GONORRHOEAE AMPLIFIED RNA (05/12/2023 12:30 EST) Neisseria gonorrhoeae Result Negative Negative 05/14/2023 12:18 EST [facility] Chlamydia trachomatis Result Negative Negative 05/14/2023 12:18 EST [facility] Swab CERVIX UTERI STRUCTURE / Unknown 05/12/2023 12:30 EST 05/13/2023 18:08 EST Provider Outr Resulting Lab MICROBIOLOGY - GENERAL ORDERABLES Performing Organization Address City/State/[facility] Co de Phone Number [facility] [address] [place] [address] documented in this encounter Visit Diagnoses Not on filedocumented in this encounter Care Teams Fox Farmer Relationship Specialty Start Date End Date Brian Santos MD [address] [place] [phone] PCP - General 02/23/15 documented as of this encounter
--- OUTSIDE RECORDS SUMMARY | 2023-12-09 09:07 | XMS_ITS | Referral Summary ---
Author Organization [facility] Address [address] [place] [address] Care Team Providers Care Technical Aid Name Role Phone Brian Santos MD Primary Care Provider Allergies Active Allergy Reactions Criticality Noted Date [...] Body Mass Index 25.69 11/14/2022 1755 EDT Functional Status Functional Status Response Date of Assess ment Are you deaf or do you have serious difficulty h earing? No 11/14/2022 Plan of Treatment Not on file Procedures Procedure Name Priority Date/Time Associated Diagnosis Comments HEPATITIS C AB W REFLEX TO HCV RNA BY PCR Routine 03/22/2023 11:30 EST from Last 3 Months or Most Recently Relevant to Health Maintenance Results * HEPATITIS C AB W REFLEX TO HCV RNA BY PCR (03/22/2023 11:30 EST) Hep C Antibody Negative Negative 03/24/2023 23:34 EST [facility] Blood VENOUS BLOOD / Unknown 03/22/2023 11:30 EST 03/24/2023 21:59 EST Provider Outr Resulting Lab CHEMISTRY & BLOOD GAS ORDERABLES [facility] [address] [place] [address] from Last 3 Months or Most Recently Relevant to Health Maintenance Care Teams Technical Aid Relationship Specialty Start Date End Date Brian Santos MD [address] [place] [address] PCP - General 02/23/15
--- OUTSIDE RECORDS SUMMARY | 2023-12-09 09:07 | XMS_ITS | Encounter Summary ---
Author Organization [facility] Address [address] [place] [address] Care Team Providers Care Certified Orthotic Fitter Name Role Phone Brian Santos MD Primary Care Provider [phone] Encounter Details Date Type Department Care Team (Late st Contact Info) Description 03/24/2023 Lab Requisition [facility] Pathology & Laboratory Medicine - [address] [address] Outr Resulting Lab, Provider Social History Tobacco [...] Procedure Name Priority Date/Time Associated Diagnosis Comments HOLD SST Today 03/22/2023 11:30 EST SYPHILIS SEROLOGY Today 03/22/2023 11: 30 EST documented in this encounter Results * HOLD SST (03/22/2023 11:30 EST) Hold Hold 03/24/2023 23:15 EST [facility] Blood VENOUS BLOOD / Unknown 03/22/2023 11:30 EST 03/24/2023 22:02 EST Provider Outr Resulting Lab LAB INFO SER VICE AND SUPPORT & PHONE RESULT Performing Organization Address [facility] Co de Phone Number [facility] [address] [place] [address] * SYPHILIS SEROLOGY (03/22/2023 11:30 EST) Syphilis Serology Negative Negative 03/25/2023 10:47 EST [facility] Blood VENOUS BLOOD / Unknown 03/22/2023 11:30 EST 03/24/2023 21:59 EST Provider Outr Resulting Lab IMMUNOLOGY A ND SEROLOGY ORDERABLES Performing Organization Address [facility] de Phone Number [facility] [address] [place] [address] documented in this encounter Visit Diagnoses Not on filedocumented in this encounter Care Teams Certified Orthotic Fitter Relationship Specialty Start Date End Date Brian Santos MD [address] [place] [phone] PCP - General 02/23/15 documented as of this encounter
--- OUTSIDE RECORDS SUMMARY | 2023-12-09 09:07 | XMS_ITS | Encounter Summary ---
Author Organization Formerly [facility] [place] [address] Care Team Providers Care Tar Pot Worker Name Role Phone None Primary Care Provider Unavailabl e Reason for Visit * Auth/Cert (Routine) Specialty Diagnoses / Procedures Referred By Controsana t Referred To Contact Diagnoses stent maintainence Procedures PRO ERCP,DIAGNOSTIC ERCP Bijan Felipe MD [facility] [address] [place] [address] [facility] Referral ID Status Reason Start Date Expiration Date Visits Re quested Visits Authorized [id number] 1 1 Encounter Details Date Type Department Care Team (Late st Contact Info) Description 06/10/2022 4:55 PM EST Anesthesia [place] [address] [facility] [place] [address] [facility] [place] [address] Anesthesia Record Procedure Summary Procedure Name Responsible Anesthesiologist Anesthesia Start Time Anesthesia Stop Time ERCP, W REMOVAL& EXCHANGE STENT, BILIARY/PANCREATIC DUCT (WRVU 8.84) (Trunk) Chelsie Plaza MD 06/10/22 1655 06/10/22 1751 Events Date Time Event Comment 06/10/2022 1523 1655 AN Verify 1655 Start 1655 An Start Data 1702 An Induction 1704 An Intubation 1706 Anesthesia Ready 174 Extubation/LMA Out 174 an stop data 175 Recovery or ICU Handoff Martha ent care was transferred to the destination unit staff after review of the patient's medical history, current anesthetic/surgical status and plan, according to the Provider Handoff Checklist. 1751 Stop Meds Name Total fentaNYL 50 mcg Propofol 200 mg Propofol INF 458.56 mg Dexmedetomidine 16 mcg Ondansetron 4 mg Dexamethasone 8 mg Succinylcholine 100 mg Lactated Ringers 0 mL * Agents Name O2 Air N2O * Blood No blood administrations on file. Lines, Drains, and Airways Type Details Placement Removal (RETIRED) Peripheral IV Line - Single Lumen 02/18/22 (outside hospital); 09 (outside hospital); median cubital vein (antecubital fossa), right; uxeh-unc-auimbx catheter system; 18 gauge; (outside hospital); 06/10/22; 184702/18/22 0900 by Nehal Abbott RN 06/10/221847 by Kimmie Powers, VALDEMAR (RETIRED) Peripheral IV Line - Single Lumen 02/20/22 (placed at outside hospital); 09 (placed at outside hospital); cephalic vein (lateral side of arm), left; kpcl-nqu-yingjy catheter system; Anatomical Landmarks; 22 gauge; 06/10/22; 184702/20/22 0900 by Nehal Abbott RN 06/10/221847 by Kimmie Powers, VALDEMAR (RETIRED) Peripheral IV Line - Single Lumen 06/10/22; 1508; median cubital vein (antecubital fossa), right; zufo-xii-sjyexr catheter system; 22 gauge; arianna granger rn; 06/10/22; 184706/10/22 1508 by Halle Lorenzo RN 06/10/221847 by Kimmie Powers, VALDEMAR ETT Mask Ventilation: Ea sy (1); ETT Type: Cuffed, Oral; ETT Size: 7 mm; Mac Blade: 3; Notes: Asleep, Pre-O2, Cricoid Pressure, Stylette; Attempts: 1; Laryngoscopy Grade: 2; ETT Placement Verified By: Auscultation, Capnometry; Secured at Teeth: 21 cm; Removal Date: 06/10/22; Removal Time: 174206/10/22 170 by Shravan Gupta CRNA 06/10/22 174 by Shravan Gupta CRNA documented in this encounter Social History [...] OR Notes * Anesthesia Postprocedure Evaluation - Chelsie Plaza MD - 06/10/2022 5:55 PM EST Department of Anesthesiology Post-procedure Note Patient: Lawanda Mcdaniel Procedure Summary Date: 06/10/22 Room / Location: [facility] / [facility] Anesthesia Start: 1654 Anesthesia Stop: Procedures: ERCP, W REMOVAL& EXCHANGE STENT, BILIARY/PANCREATIC DUCT (Trunk) CHOLANGIOGRAM Diagnosis: (stent maintainence) Surgeons: Bijan Felipe MD Responsible Provider: Chelsie Plaza MD Anesthesia Type: general ASA Status: 1 All Anesthesia Providers: Anesthesiologist: Chelsie Plaza MD SDET: Shravan Gupta CRNA Vitals Value Taken Time BP 114/80 06/10/22 1810 Temp Pulse Resp 18 06/10/22 1810 SpO2 100 % 06/10/22 1817 Pain Level 0 06/10/22 1810 Vitals shown include unvalidated device data. Patient Location: PACU/[facility] Level of Consciousness: Awake and Alert Pain Management: Satisfactory Analgesia PONV: None Cardiovascular Status: Hemodynamically Stable Respiratory Status: Stable Respiratory Status Postoperative Fluid Status: Intravascular EUvolemia Possible Anesthetic Complications: NONE apparent at time of evaluation Final Primary Anesthesia Type: General (The anesthetic type performed was the same as planned.) Comments: Chelsie Plaza MD * Anesthesia Preprocedure Evaluation - Chelsie Plaza MD - 06/09/2022 8:37 PM EST Pre-Anesthesia Evaluation for: Lawanda Mcdaniel a 21 [...] DUCT performed by Bijan Felipe MD at [facility] ??? PRO ERCP, SPHINCTEROTOMY N/A 02/21/2022 ERCP W/SPHINCTEROTOMY/PAPILLOTOMY performed by Bijan Felipe MD at [facility] ??? PRO ERCP, W/REMOVAL STONE, NICKY/PANCR DUCTS 02/21/2022 ERCP W/REMOVAL CALCULI/DEBRIS FROM BILARY/PANCREATIC DUCT(S) performed by Bijan Felipe MD at [facility] Social History Tobacco Use ??? Smoking status: Never ??? Smokeless tobacco: Current ??? Tobacco comments: vape pen Substance Use Topics ??? Alcohol use: Yes Alcohol/week: 1.0 standard drink Types: 1 Cans of beer per week Social History Substance and Sexual Activity Drug Use Yes ??? Frequency: 1.0 times per week ??? Types: Marijuana No Known Allergies Medications: MAR and/or home [...] Perioperative Cognitive Screening None Anesthesia Plan: ASA 1 general, with a(n) intravenous induction 21 y.o. female never smoker with a history of laparoscopic converted to open cholecystectomy c/b CBD injury requiring ERCP who presents for ERCP. Past Anesthesia History: - Airway history: previously EMV, G1V with Mac 3 - Anesthetic exposures: Prior GA for ERCP / omaira - Anesthetic complications: no personal or family hx anesthetic complications NPO status appropriate No Known Allergies PLAN GETA, PIVx1 Region - Other Informed Consent: Anesthetic plan and risks discussed with patient. Plan discussed with SDET. Anesthesia Screening documented in this encounter Plan of Treatment Not on file documented as of this encounter Visit Diagnoses Not on filedocumented in this encounter Administered Medications Inactive Administered Medications - up to 3 most recent administrations Medication Order MAR Action Action Date Dose Rate Site dexAMETHasone (Decadron) injection Intravenous, PRN, Starting on Fri06/10/22 at 1708, Until Fri06/10/22 at 1818, Anesthesia Intra-op, Routine Given 06/10/2022 5:08 PM EST 8 mg dexmedeTOMIDine (Precedex) (4 mcg/mL) bolus injection (Anesthsia) Intravenous, PRN, Starting on Fri06/10/22 at 1702, Until Fri06/10/22 at 1818, Anesthesia Intra-op, Routine Given 06/10/2022 5:27 PM EST 4 mcg Given 06/10/2022 5:06 PM EST 4 mcg Given 06/10/2022 5:02 PM EST 8 mcg fentaNYL (pf) (50 mcg/mL) multi-dose injection Intravenous, PRN, Starting on Fri06/10/22 at 1708, Until Fri06/10/22 at 1818, Anesthesia Intra-op, Routine Given 06/10/2022 5:08 PM EST 50 mcg lactated ringers infusion Intravenous, CONTINUOUS PRN, Starting on Fri06/10/22 at 1508, Until Fri06/10/22 at 1818, Anesthesia Intra-op New Bag 06/10/2022 3:08 PM EST ondansetron (pf) (Zofran) (2 mg/mL) injection Intravenous, PRN, Starting on Fri06/10/22 at 1708, Until Fri06/10/22 at 1818, Anesthesia Intra-op, Routine Given 06/10/2022 5:08 PM EST 4 mg propofoL (Diprivan) (10 mg/mL) infusion Intravenous, CONTINUOUS PRN, Starting on Fri06/10/22 at 1702, Until Fri06/10/22 at 1818, Anesthesia Intra-op, Routine Rate/Dose Change 06/10/2022 5:16 PM EST 225 mcg/kg/min 90.045 mL/hr New Bag 06/10/2022 5:02 PM EST 250 mcg/kg/min 100.05 mL /hr propofoL (Diprivan) 10 mg/mL bolus injection (Anesthesia) Intravenous, PRN, Starting on Fri06/10/22 at 1702, Until Fri06/10/22 at 1818, Anesthesia Intra-op Given 06/10/2022 5:02 PM EST 200 mg succinylcholine (Anectine;Quelicin) (20 mg/mL) injection Intravenous, PRN, Starting on Fri06/10/22 at 1702, Until Fri06/10/22 at 1818, Anesthesia Intra-op, Routine Given 06/10/2022 5:02 PM EST 100 mg documented in this encounter Care Teams Tar Pot Worker Relationship Specialty Start Date End Date None None PCP - General 02/21/22 documented as of this encounter
--- OUTSIDE RECORDS SUMMARY | 2023-12-09 09:07 | XMS_ITS | Encounter Summary ---
Author Organization [facility] Address [address] [place] [address] Care Team Providers Care Equipment Oiler Name Role Phone Brian Santos MD Primary Care Provider [phone] Encounter Details Date Type Department Care Team (Late st Contact Info) Description 01/17/2022 Lab Requisition [facility] Pathology & Laboratory Medicine - [address] [address] Outr Resulting Lab, Provider Social History Tobacco [...] Comments CHLAMYDIA/N. GONORRHOEAE AMPLIFIED NUCLEIC ACID Routine 01/17/2022 11:30 EDT documented in this encounter Results * CHLAMYDIA/N. GONORRHOEAE AMPLIFIED RNA (01/17/2022 11:30 EDT) Neisseria gonorrhoeae Result Negative Negative 01/18/2022 15:37 EDT [facility] Chlamydia trachomatis Result Negative Negative 01/18/2022 15:37 EDT [facility] Swab ENTIRE ENDOCERVIX / Unknown 01/17/2022 11:30 EDT 01/17/2022 23:02 EDT Provider Outr Resulting Lab MICROBIOLOGY - GENERAL ORDERABLES [facility] [address] [place] [address] documented in this encounter Visit Diagnoses Not on filedocumented in this encounter Care Teams Equipment Oiler Relationship Specialty Start Date End Date Brian Santos MD [address] [place] [phone] PCP - General 02/23/15 documented as of this encounter
--- OUTSIDE RECORDS SUMMARY | 2023-12-09 09:07 | XMS_ITS | Encounter Summary ---
Author Organization [facility] Address [address] [place] [address] Care Team Providers Care Art Framing Manager Name Role Phone Brian Santos MD Primary Care Provider [phone] Encounter Details Date Type Department Care Team (Latest Contact Info) Description 10/18/2020 Travel Social History Tobacco Use Types Packs/Day [...] 16:39 EDT documented as of this encounter Plan of Treatment Not on file documented as of this encounter Visit Diagnoses Not on filedocumented in this encounter Care Teams Art Framing Manager Relationship Specialty Start Date End Date Brian Santos MD [address] [place] [address] [place] [phone] PCP - General 02/23/15 documented as of this encounter
--- OUTSIDE RECORDS SUMMARY | 2023-12-09 09:07 | XMS_ITS | Encounter Summary ---
Author Organization [facility] Address [address] [place] [address] Care Team Providers Care Registered Sales Assistant Name Role Phone Brian Santos MD Primary Care Provider [phone] Encounter Details Date Type Department Care Team (Late st Contact Info) Description 01/04/2021 Lab Requisition [facility] Pathology & Laboratory Medicine - [address] [phone] Outr Resulting Lab, Provider Social History Tobacco [...] Procedure Name Priority Date/Time Associated Diagnosis Comments HSV (HERPES SIMPLEX VIRUS) MOLECULAR DETECTION, PCR Routine 01/03/2021 16:30 EDT documented in this encounter Results * (ABNORMAL) HERPES SIMPLEX VIRUS MOLECULAR DETECTION, PCR (01/03/2021 16:30 EDT) Herpes Simplex Virus Molecular Detection 1, PCR Negative Negative 01/05/2021 12:[address] [facility] Herpes Simplex Virus Molecular Detection 2, PCR Positive(A) Negative 01/05/2021 12:[address] [facility] Swab ENTIRE VAGINA / Unknown 01/03/2021 16:30 EDT 01/04/2021 16:20 EDT Provider Outr Resulting Lab MICROBIOLOGY - GENERAL ORDERABLES [facility] [address] [place] [address] documented in this encounter Visit Diagnoses Not on filedocumented in this encounter Additional Health Concerns Infection Onset Date Last Indicated Resolved Time COVID-19 10/09/2021 10/09/2021 10/29/2021 22:1 5 EDT documented as of this encounter Care Teams Registered Sales Assistant Relationship Specialty Start Date End Date Brian Santos MD [address] [place] [phone] PCP - General 02/23/15 documented as of this encounter
--- OUTSIDE RECORDS SUMMARY | 2023-12-09 09:08 | XMS_ITS | Encounter Summary ---
Author Organization [facility] Address [address] [place] [address] Care Team Providers Care Volunteer Recruitment Coordinator Name Role Phone Brian Santos MD Primary Care Provider [phone] Encounter Details Date Type Department Care Team (Late st Contact Info) Description 09/27/[address] [facility] Pathology & Laboratory Medicine - [address] [phone] Outr Resulting Lab, Provider Social History Tobacco [...] Comments CHLAMYDIA/N. GONORRHOEAE AMPLIFIED NUCLEIC ACID Routine 09/26/2019 22:39 EDT documented in this encounter Results * CHLAMYDIA/N. GONORRHOEAE AMPLIFIED RNA (09/26/2019 22:39 EDT) Neisseria gonorrhoeae Result Negative Negative 09/29/2019 8:50 EDT [facility] Chlamydia trachomatis Result Negative Negative 09/29/2019 8:50 EDT [facility] Swab ENTIRE ENDOCERVIX / Unknown 09/26/2019 22:39 EDT 09/27/2019 16:33 EDT Provider Outr Resulting Lab MICROBIOLOGY - GENERAL ORDERABLES [facility] [address] [place] [address] documented in this encounter Visit Diagnoses Not on filedocumented in this encounter Additional Health Concerns Infection Onset Date Last Indicated Resolved Time COVID-19 10/09/2021 10/09/2021 10/29/2021 22:1 5 EDT documented as of this encounter Care Teams Volunteer Recruitment Coordinator Relationship Specialty Start Date End Date Brian Santos MD [address] [place] [phone] PCP - General 02/23/15 documented as of this encounter
--- OUTSIDE RECORDS SUMMARY | 2023-12-09 09:08 | XMS_ITS | Encounter Summary ---
Author Organization [facility] Address [address] [place] [address] Care Team Providers Care Page Technician Name Role Phone Brian Santos MD Primary Care Provider [phone] Encounter Details Date Type Department Care Team (Late st Contact Info) Description 10/06/2019 Lab Requisition [facility] Pathology & Laboratory Medicine - [address] [address] Outr Resulting Lab, Provider Social History Tobacco [...] Comments CHLAMYDIA/N. GONORRHOEAE AMPLIFIED NUCLEIC ACID Routine 10/06/2019 11:20 EDT documented in this encounter Results * CHLAMYDIA/N. GONORRHOEAE AMPLIFIED RNA (10/06/2019 11:20 EDT) Neisseria gonorrhoeae Result Negative Negative 10/08/2019 13:05 EDT [facility] Chlamydia trachomatis Result Negative Negative 10/08/2019 13:05 EDT [facility] Swab ENTIRE ENDOCERVIX / Unknown 10/06/2019 11:20 EDT 10/06/2019 22:22 EDT Provider Outr Resulting Lab MICROBIOLOGY - GENERAL ORDERABLES [facility] [address] [place] [address] documented in this encounter Visit Diagnoses Not on filedocumented in this encounter Additional Health Concerns Infection Onset Date Last Indicated Resolved Time COVID-19 10/09/2021 10/09/2021 10/29/2021 22:1 5 EDT documented as of this encounter Care Teams Page Technician Relationship Specialty Start Date End Date Brian Santos MD [address] [place] [phone] PCP - General 02/23/15 documented as of this encounter
--- OUTSIDE RECORDS SUMMARY | 2023-12-09 09:08 | XMS_ITS | Encounter Summary ---
Author Organization [facility] Address [address] [place] [address] Care Team Providers Care Trim Mechanic Name Role Phone Brian Santos MD Primary Care Provider [phone] Encounter Details Date Type Department Care Team (Latest Contact Info) Description 12/15/2016 8:18 EDT - 12/15/2016 23:59 EDT Hospital Encounter [address] [address] Unknown, Provider, Discharge Disposition: Home or Self Care Social History Tobacco Use Types Packs/Day Years Used Date Smoking Tobacco: Never Assessed Sex and Gender Information Value Date Recorded Sex Assigned at Not on file Gender Identity Not on file Sexual Orientation Not on file documented as of this encounter Discharge Disposition Disposition Code Departure Means Destination Home or Self [facility] documented in this encounter Plan of Treatment Not on file documented as of this encounter Visit Diagnoses Not on filedocumented in this encounter Care Teams Trim Mechanic Relationship Specialty Start Date End Date Brian Santos MD [address] [place] [phone] PCP - General 02/23/15 documented as of this encounter
--- OUTSIDE RECORDS SUMMARY | 2023-12-09 09:08 | XMS_ITS | Encounter Summary ---
Author Organization [facility] Address [address] [place] [address] Care Team Providers Care Columnist/Commentator Name Role Phone Unavailable Primary Care Provider Unavailabl e Encounter Details Date Type Department Care Team (Latest Contact Info) Description 08/20/2002 10:15 EDT - 08/20/2002 11:59 EDT Hospital Encounter [facility] Emergency Department - [facility] [place] [address] [place], [place] [address] Emergency, Default, MD Discharge Disposition: Home or Self Care Social History Tobacco Use Types Packs/Day Years Used Date Smoking Tobacco: Never Assessed Sex and Gender Information Value Date Recorded Sex Assigned at Not on file Gender Identity Not on file Sexual Orientation Not on file documented as of this encounter Discharge Disposition Disposition Code Departure Means Destination Home or Self Care documented in this encounter Plan of Treatment Not on file documented as of this encounter Visit Diagnoses Not on filedocumented in this encounter
--- OUTSIDE RECORDS SUMMARY | 2023-12-09 09:08 | XMS_ITS | Encounter Summary ---
Author Organization [facility] Address [address] [place] [address] Care Team Providers Care Senior Staff Psychologist Name Role Phone Brian Santos MD Primary Care Provider [phone] Encounter Details Date Type Department Care Team (Late st Contact Info) Description 12/13/2016 Results Only [place] [phone] Hermila Jennings MD [address] [place], [place] [id number] Social History Tobacco Use Types Packs/Day Years Used Date Smoking Tobacco: Never Assessed Sex and Gender Information Value Date Recorded Sex Assigned at Not on file Gender Identity Not on file Sexual Orientation Not on file documented as of this encounter Plan of Treatment Not on file documented as of this encounter Procedures Procedure Name Priority Date/Time Associated Diagnosis Comments SURGICAL PATHOLOGY Routine 12/13/2016 9:37 EDT documented in this encounter Results * SURGICAL PATHOLOGY (12/13/2016 9:37 EDT) Pathology Report: SURGICAL PATHOLOGY REPORT Reports generated via electronic interface contain original data; however they are lacking the format of the original report. Caution should be taken when reading/interpret ing unformatted reports. Name: ? JAG MCDANIEL ? Accession #: ? [id number] ? : ? 2000 (Age: 16) ??F ? Collect Date: ? 12/13/2016 ? Location: ? [facility] ? Receive Date: ? 12/17/2016 ? Provider: HERMILA JENNINGS MD Copy to: PÉREZ SETH NAIL PULLER ? Final Pathologic Diagnosis: SKIN OF NECK, RIGHT, SHAVE BIOPSY: - Melanocytic nevus, intradermal type. - Lesion extends to base of biopsy specimen. Document reviewed and electronically signed by: HARPREET GRUBBS MD Report ??Date: 12/18/2016 12:16 By the signature above, the attending physician certifies that he/she has personally conducted a gross and/or microscopic examination of the described specimens and rendered or confirmed the above diagnosis. Specimen(s) Received: Skin tag right neck Clinical History: Cutaneous skin tag Gross Description: ? Received in formalin labelled with proper patient identification (initials A, M) and skin tag, right neck is a 0.3 x 0.2 x 0.2 cm polypoid fragment of wrinkled evans skin. The margin is inked blue. The specimen is submitted in toto in 1. NEENA Madrigal (ASCP) 12/17/2016 11:37 AM End of Report [facility] 12/13/2016 9:37 EDT 12/17/2016 9:37 EDT Hermila Jennings MD PATHOLOGY [facility]E [facility] [address] [place] [address] documented in this encounter Visit Diagnoses Not on filedocumented in this encounter Care Teams Senior Staff Psychologist Relationship Specialty Start Date End Date Brian Santos MD [address] [place] [phone] PCP - General 02/23/15 documented as of this encounter
--- OUTSIDE RECORDS SUMMARY | 2023-12-09 09:08 | XMS_ITS | Encounter Summary ---
Author Organization [facility] Address [address] [place] [address] Care Team Providers Care Wildlife Technician Name Role Phone Brian Santos MD Primary Care Provider [phone] Encounter Details Date Type Department Care Team (Late st Contact Info) Description 05/23/2020 Lab Requisition [facility] Pathology & Laboratory Medicine - [address] [address] Outr Resulting Lab, Provider Social History Tobacco [...] Comments CHLAMYDIA/N. GONORRHOEAE AMPLIFIED NUCLEIC ACID Routine 05/23/2020 13:00 EST documented in this encounter Results * CHLAMYDIA/N. GONORRHOEAE AMPLIFIED RNA (05/23/2020 13:00 EST) Neisseria gonorrhoeae Result Negative Negative 05/24/2020 15:17 EST [facility] Chlamydia trachomatis Result Negative Negative 05/24/2020 15:17 EST [facility] Swab ENTIRE ENDOCERVIX / Unknown 05/23/2020 13:00 EST 05/23/2020 21:05 EST Provider Outr Resulting Lab MICROBIOLOGY - GENERAL ORDERABLES [facility] [address] [place] [address] documented in this encounter Visit Diagnoses Not on filedocumented in this encounter Additional Health Concerns Infection Onset Date Last Indicated Resolved Time COVID-19 10/09/2021 10/09/2021 10/29/2021 22:1 5 EDT documented as of this encounter Care Teams Wildlife Technician Relationship Specialty Start Date End Date Brian Santos MD [address] [place] [phone] PCP - General 02/23/15 documented as of this encounter
--- OUTSIDE RECORDS SUMMARY | 2023-12-09 09:08 | XMS_ITS | Encounter Summary ---
Author Organization [facility] Address [address] [place] [address] Care Team Providers Care Desk Clerk Name Role Phone Brian Santos MD Primary Care Provider [phone] Encounter Details Date Type Department Care Team (Late st Contact Info) Description 12/02/2019 Lab Requisition [facility] Pathology & Laboratory Medicine - [address] [address] Outr Resulting Lab, Provider Social History Tobacco [...] Comments CHLAMYDIA/N. GONORRHOEAE AMPLIFIED NUCLEIC ACID Routine 12/01/2019 15:30 EDT documented in this encounter Results * CHLAMYDIA/N. GONORRHOEAE AMPLIFIED RNA (12/01/2019 15:30 EDT) Neisseria gonorrhoeae Result Negative Negative 12/03/2019 16:44 EDT [facility] Chlamydia trachomatis Result Negative Negative 12/03/2019 16:44 EDT [facility] Urine URINE / Unknown 12/01/2019 1 5:30 EDT 12/02/2019 18:23 EDT Narrative [facility] - 12/03/2019 16:44 EDT A first catch urine specimen is acceptable for detection of Gonorrhea and Chlamydia, but might detect up to 10% fewer infections when compared with vaginal and endocervical swab samples. Provider Outr Resulting Lab MICROBIOLOGY - GENERAL ORDERABLES [facility] [address] [place] [address] documented in this encounter Visit Diagnoses Not on filedocumented in this encounter Additional Health Concerns Infection Onset Date Last Indicated Resolved Time COVID-19 10/09/2021 10/09/2021 10/29/2021 22:1 5 EDT documented as of this encounter Care Teams Desk Clerk Relationship Specialty Start Date End Date Brian Santos MD [address] [place] [phone] PCP - General 02/23/15 documented as of this encounter
--- OUTSIDE RECORDS SUMMARY | 2023-12-09 09:08 | XMS_ITS | Encounter Summary ---
Author Organization [facility] Address [address] [place] [address] Care Team Providers Care Cognos Tm1 Developer Name Role Phone Brian Santos MD Primary Care Provider [phone] Encounter Details Date Type Department Care Team (Late st Contact Info) Description 06/03/2019 Lab Requisition [facility] Pathology & Laboratory Medicine - [address] [address] Unknown, ProviderMD Social History Tobacco Use Types Packs/Day Years [...] Comments CHLAMYDIA/N. GONORRHOEAE AMPLIFIED NUCLEIC ACID Routine 06/03/2019 11:00 EST documented in this encounter Results * CHLAMYDIA/N. GONORRHOEAE AMPLIFIED RNA (06/03/2019 11:00 EST) Neisseria gonorrhoeae Result Negative Negative 06/04/2019 13:26 EST [facility] Chlamydia trachomatis Result Negative Negative 06/04/2019 13:26 EST [facility] Urine URINE / Unknown 06/03/2019 1 1:00 EST 06/03/2019 20:26 EST Narrative [facility] - 06/04/2019 13:26 EST A first catch urine specimen is acceptable for detection of Gonorrhea and Chlamydia, but might detect up to 10% fewer infections when compared with vaginal and endocervical swab samples. Provider Unknown MICROBIOLOGY - DANICA GALLEGOS ORDERABLES [facility] [address] [place] [address] documented in this encounter Visit Diagnoses Not on filedocumented in this encounter Additional Health Concerns Infection Onset Date Last Indicated Resolved Time COVID-19 10/09/2021 10/09/2021 10/29/2021 22:1 5 EDT documented as of this encounter Care Teams Cognos Tm1 Developer Relationship Specialty Start Date End Date Brian Santos MD [address] [place] [phone] PCP - General 02/23/15 documented as of this encounter
--- OUTSIDE RECORDS SUMMARY | 2023-12-09 09:08 | XMS_ITS | Encounter Summary ---
Author Organization [facility] Address [address] [place] [address] Care Team Providers Care Rigging Man Name Role Phone Brian Santos MD Primary Care Provider [phone] Encounter Details Date Type Department Care Team (Late st Contact Info) Description 10/07/2019 Lab Requisition [facility] Pathology & Laboratory Medicine - [address] [phone] Outr Resulting Lab, Provider Social History Tobacco [...] 1/2 ANTIGEN AND ANTIBODY, 4TH GENERATION Routine 10/06/2019 11:33 EDT documented in this encounter Results * HIV 1/2 ANTIGEN AND ANTIBODY, 4TH GENERATION (10/06/2019 11:33 EDT) HIV 1 and 2 Antibody/p24 Antigen, 4th Generation Negative Negative 10/08/2019 11:33 EDT [facility] Comment: If acute HIV-1 infection is suspected in a high risk ??patient, submit plasma specimen for HIV-1 RNA quantitation test. Fourth Generation assay performed on the Siemens Centaur. Blood VENOUS BLOOD / Unknown 10/06/2019 11:33 EDT 10/07/2019 17:14 EDT Provider Outr Resulting Lab IMMUNOLOGY A ND SEROLOGY ORDERABLES [facility] [address] [place] [address] documented in this encounter Visit Diagnoses Not on filedocumented in this encounter Additional Health Concerns Infection Onset Date Last Indicated Resolved Time COVID-19 10/09/2021 10/09/2021 10/29/2021 22:1 5 EDT documented as of this encounter Care Teams Rigging Man Relationship Specialty Start Date End Date Brian Santos MD [address] [place] [address] PCP - General 02/23/15 documented as of this encounter
--- OUTSIDE RECORDS SUMMARY | 2023-12-09 09:08 | XMS_ITS | Encounter Summary ---
Author Organization [facility] Address [address] [place] [address] Care Team Providers Care Well Blower Name Role Phone Brian Santos MD Primary Care Provider [phone] Encounter Details Date Type Department Care Team (Late st Contact Info) Description 04/11/2020 Lab Requisition [facility] Pathology & Laboratory Medicine - [address] [address] Outr Resulting Lab, Provider Social History Tobacco [...] Comments ZZCOVID-19 TEST [facility] PCR Today 04/11/2020 5:00 EST COVID-19 TESTING Routine 04/11/2020 5:00 EST documented in this encounter Results * COVID-19 TEST [facility] PCR (04/11/2020 5:00 EST) Swab ENTIRE NASOPHARYNX / Unknown 04/11/2020 5:00 EST 04/11/2020 15:47 EST Provider Outr Resulting Lab MICROBIOLOGY - GENERAL ORDERABLES [facility] [address] [place] [address] * COVID-19 TESTING (04/11/2020 5:00 EST) COVID-19 rt-PCR Result Negative Negative 04/11/2020 20:28 EST [facility] Comment: This test has [...] history, and epidemiological information. Performed on the shopkick Fusion instrument Performing Lab [place] [facility] 04/11/2020 20:28 EST [facility] Swab 04/11/2020 5:00 EST 04/11/2020 15:47 EST Provider Outr Resulting Lab MICROBIOLOGY - GENERAL ORDERABLES [facility] [address] [place] [address] documented in this encounter Visit Diagnoses Not on filedocumented in this encounter Additional Health Concerns Infection Onset Date Last Indicated Resolved Time COVID-19 10/09/2021 10/09/2021 10/29/2021 22:1 5 EDT documented as of this encounter Care Teams Well Blower Relationship Specialty Start Date End Date Brian Santos MD [address] [place] [phone] PCP - General 02/23/15 documented as of this encounter
--- OUTSIDE RECORDS SUMMARY | 2023-12-09 09:08 | XMS_ITS | Encounter Summary ---
Author Organization [facility] Address [address] [place] [address] Care Team Providers Care Biomedical Repair Technician Name Role Phone Brian Santos MD Primary Care Provider [phone] Encounter Details Date Type Department Care Team (Latest Contact Info) Description 10/22/2018 7:31 EDT - 10/22/2018 23:59 EDT Hospital Encounter [address] [address] Unknown, Provider, Discharge Disposition: Home or Self Care Social History Tobacco Use Types Packs/Day Years Used Date Smoking Tobacco: Never Assessed Sex and Gender Information Value Date Recorded Sex Assigned at Not on file Gender Identity Not on file Sexual Orientation Not on file documented as of this encounter Discharge Disposition Disposition Code Departure Means Destination Home or Self Residential documented in this encounter Plan of Treatment Not on file documented as of this encounter Visit Diagnoses Not on filedocumented in this encounter Care Teams Biomedical Repair Technician Relationship Specialty Start Date End Date Brian Santos MD [address] [place] [phone] PCP - General 02/23/15 documented as of this encounter
--- OUTSIDE RECORDS SUMMARY | 2023-12-09 09:08 | XMS_ITS | Encounter Summary ---
Author Organization [facility] Address [address] [place] [address] Care Team Providers Care Paper Machine Tender Name Role Phone Brian Santos MD Primary Care Provider [phone] Encounter Details Date Type Department Care Team (Late st Contact Info) Description 10/06/2019 Lab Requisition [facility] Pathology & Laboratory Medicine - [address] [phone] Outr Resulting Lab, Provider Social History Tobacco [...] Associated Diagnosis Comments RUBELLA IGG ANTIBODY Routine 10/06/2019 12:15 EDT VARICELLA IGG ANTIBODY Routine 10/06/2019 12:15 EDT documented in this encounter Results * VARICELLA IGG ANTIBODY (10/06/2019 12:15 EDT) Varicella IgG Ab Positive See Note 10/07/2019 9:42 EDT [facility] Comment:Presence of detectab le Varicella Zoster virus IgG antibodies. Blood VENOUS BLOOD / Unknown 10/06/2019 12:15 EDT 10/06/2019 21:29 EDT Provider Outr Resulting Lab IMMUNOLOGY A ND SEROLOGY ORDERABLES [facility] [address] [place] [address] * RUBELLA IGG ANTIBODY (10/06/2019 12:15 EDT) Rubella IgG Ab Negative See Note 10/07/2019 9:47 EDT [facility] Comment:Sample is considered negative for IgG antibodies to Rubella virus. A negative result presumes that immunity has not been acquired. If exposure to Rubella virus is suspected despite a negative finding, a second specimen should be collected and tested for Rubella IgG Ab one or two weeks later. Blood VENOUS BLOOD / Unknown 10/06/2019 12:15 EDT 10/06/2019 21:29 EDT Provider Outr Resulting Lab CHEMISTRY & BLOOD GAS ORDERABLES [facility] [address] [place] [address] documented in this encounter Visit Diagnoses Not on filedocumented in this encounter Additional Health Concerns Infection Onset Date Last Indicated Resolved Time COVID-19 10/09/2021 10/09/2021 10/29/2021 22:1 5 EDT documented as of this encounter Care Teams Paper Machine Tender Relationship Specialty Start Date End Date Brian Santos MD [address] [place] [address] PCP - General 02/23/15 documented as of this encounter
--- OUTSIDE RECORDS SUMMARY | 2023-12-09 09:08 | XMS_ITS | Encounter Summary ---
Author Organization [facility] Address [address] [place] [address] Care Team Providers Care Mexican Food Machine Tender Name Role Phone Brian Santos MD Primary Care Provider [phone] Encounter Details Date Type Department Care Team (Late st Contact Info) Description 10/22/2018 Results Only [facility] [phone] Mila Nunez MD [address] [place] [id number] Social History Tobacco Use Types Packs/Day Years Used Date Smoking Tobacco: Never Assessed Sex and Gender Information Value Date Recorded Sex Assigned at Not on file Gender Identity Not on file Sexual Orientation Not on file documented as of this encounter Plan of Treatment Not on file documented as of this encounter Procedures Procedure Name Priority Date/Time Associated Diagnosis Comments SURGICAL PATHOLOGY Routine 10/22/2018 9:30 EDT documented in this encounter Results * SURGICAL PATHOLOGY (10/22/2018 9:30 EDT) Pathology Report: SURGICAL PATHOLOGY REPORT Reports generated via electronic interface contain original data; however they are lacking the format of the original report. Caution should be taken when reading/interpret ing unformatted reports. Name: ? JAG MCDANIEL ? Accession #: ? [id number] ? : ? 2000 (Age: 18) ??F ? Collect Date: ? 10/22/2018 ? Location: ? [facility] ? Receive Date: ? 10/23/2018 ? Provider: MILA NUNEZ MD Copy to: JOAQUIN BAKER MD ? Final Pathologic Diagnosis: APPENDIX, APPENDECTOMY: - Appendix with mild acute appendicitis. - See comment. Comment: The entire appendix has been submitted for histologic review. A very mild appendicitis, predominantly in the form of eosinophils, is identified. Document reviewed and electronically signed by: LUIS A LONG MD Report ??Date: 10/27/2018 15:41 By the signature above, the attending physician certifies that he/she has personally conducted a gross and/or microscopic examination of the described specimens and rendered or confirmed the above diagnosis. Specimen(s) Received: Appendix Clinical History: Acute appendicitis Gross Description: ? Received in normal saline labelled with proper patient identification (initials A, M) and appendix is a vermiform appendix (6.2 cm in length x 0.9 cm in diameter), with a moderate amount of attached mesoappendix. The proximal margin is stapled. ? The serosa is glistening brooks-white with slightly ectatic vessels. The adipose is lobular brooks-yellow. The cut surface of the appendix wall is glistening brooks-white. The average wall thickness is 0.4 cm with no discernable perforation site. The lumen ranges from 0.2-0.6 cm in diameter. The proximal margin is inked black. ? The section adjacent to the proximal stapled margin, 2 personal financial representative cross sections and one half of the longitudinally bisected distal tip are submitted in 1. The remainder of the specimen is subsequently submitted in 2-7. Dr. Pinto 10/23/2018 1:36 PM End of Report [facility] 10/22/2018 9:30 EDT 10/23/2018 9:30 EDT Mila Nunez MD PATHOLOGY ORDER IDALMIS [facility] [address] [place] [address] documented in this encounter Visit Diagnoses Not on filedocumented in this encounter Care Teams Mexican Food Machine Tender Relationship Specialty Start Date End Date Biran Santos MD [address] [place] [phone] PCP - General 02/23/15 documented as of this encounter
--- OUTSIDE RECORDS SUMMARY | 2023-12-09 09:08 | XMS_ITS | Encounter Summary ---
Author Organization [facility] Address [address] [place] [address] Care Team Providers Care Core Microarchitect Name Role Phone Brian Santos MD Primary Care Provider [phone] Encounter Details Date Type Department Care Team (Late st Contact Info) Description 03/15/2019 Lab Requisition [facility] Pathology & Laboratory Medicine - [address] [address] Unknown, Provider, Social History Tobacco Use Types Packs/Day Years [...] 1/2 ANTIGEN AND ANTIBODY, 4TH GENERATION Routine 03/15/2019 12:49 EST documented in this encounter Results * HIV 1/2 ANTIGEN AND ANTIBODY, 4TH GENERATION (03/15/2019 12:49 EST) HIV 1 and 2 Antibody/p24 Antigen, 4th Generation Negative Negative 03/16/2019 11:58 EST [facility] Comment: If acute HIV-1 infection is suspected in a high risk ??patient, submit plasma specimen for HIV-1 RNA quantitation test. Fourth Generation assay performed on the Siemens Footfall123aur. Blood VENOUS BLOOD / Unknown 03/15/2019 12:49 EST 03/15/2019 23:07 EST Provider Unknown IMMUNOLOGY AND SEROL OGY ORDERABLES [facility] [address] [place] [address] documented in this encounter Visit Diagnoses Not on filedocumented in this encounter Additional Health Concerns Infection Onset Date Last Indicated Resolved Time COVID-19 10/09/2021 10/09/2021 10/29/2021 22:1 5 EDT documented as of this encounter Care Teams Core Microarchitect Relationship Specialty Start Date End Date Brian Santos MD [address] [place] [phone] PCP - General 02/23/15 documented as of this encounter
--- OUTSIDE RECORDS SUMMARY | 2023-12-09 09:08 | XMS_ITS | Encounter Summary ---
Author Organization [facility] Address [address] [place] [address] Care Team Providers Care Certifier Name Role Phone Brian Santos MD Primary Care Provider [phone] Encounter Details Date Type Department Care Team (Late st Contact Info) Description 08/18/2019 Lab Requisition [facility] Pathology & Laboratory Medicine - [address] [phone] Outr Resulting Lab, Provider Social History Tobacco [...] Comments CHLAMYDIA/N. GONORRHOEAE AMPLIFIED NUCLEIC ACID Routine 08/18/2019 10:00 EDT documented in this encounter Results * CHLAMYDIA/N. GONORRHOEAE AMPLIFIED RNA (08/18/2019 10:00 EDT) Neisseria gonorrhoeae Result Negative Negative 08/19/2019 13:15 EDT [facility] Chlamydia trachomatis Result Negative Negative 08/19/2019 13:15 EDT [facility] Urine URINE / Unknown 08/18/2019 1 0:00 EDT 08/18/2019 21:04 EDT Narrative [facility] - 08/19/2019 13:15 EDT A first catch urine specimen is acceptable for detection of Gonorrhea and Chlamydia, but might detect up to 10% fewer infections when compared with vaginal and endocervical swab samples. Provider Outr Resulting Lab MICROBIOLOGY - GENERAL ORDERABLES [facility] [address] [place] [address] documented in this encounter Visit Diagnoses Not on filedocumented in this encounter Additional Health Concerns Infection Onset Date Last Indicated Resolved Time COVID-19 10/09/2021 10/09/2021 10/29/2021 22:1 5 EDT documented as of this encounter Care Teams Certifier Relationship Specialty Start Date End Date Brian Santos MD [address] [place] [phone] PCP - General 02/23/15 documented as of this encounter
--- OUTSIDE RECORDS SUMMARY | 2023-12-09 09:08 | XMS_ITS | Encounter Summary ---
Author Organization [facility] Address [address] [place] [address] Care Team Providers Care Route Vending Machine Servicer Name Role Phone Brian Santos MD Primary Care Provider [phone] Encounter Details Date Type Department Care Team (Late st Contact Info) Description 09/27/2019 Lab Requisition [facility] Pathology & Laboratory Medicine - [address] [phone] Outr Resulting Lab, Provider Social History Tobacco [...] 1/2 ANTIGEN AND ANTIBODY, 4TH GENERATION Routine 09/26/2019 22:20 EDT documented in this encounter Results * HIV 1/2 ANTIGEN AND ANTIBODY, 4TH GENERATION (09/26/2019 22:20 EDT) HIV 1 and 2 Antibody/p24 Antigen, 4th Generation Negative Negative 09/28/2019 10:31 EDT [facility] Comment: If acute HIV-1 infection is suspected in a high risk ??patient, submit plasma specimen for HIV-1 RNA quantitation test. Fourth Generation assay performed on the Siemens UV Flu Technologiesaur. Blood VENOUS BLOOD / Unknown 09/26/2019 22:20 EDT 09/27/2019 16:28 EDT Provider Outr Resulting Lab IMMUNOLOGY A ND SEROLOGY ORDERABLES [facility] [address] [place] [address] documented in this encounter Visit Diagnoses Not on filedocumented in this encounter Additional Health Concerns Infection Onset Date Last Indicated Resolved Time COVID-19 10/09/2021 10/09/2021 10/29/2021 22:1 5 EDT documented as of this encounter Care Teams Route Vending Machine Servicer Relationship Specialty Start Date End Date Brian Santos MD [address] [place] [phone] PCP - General 02/23/15 documented as of this encounter
--- OUTSIDE RECORDS SUMMARY | 2023-12-09 09:08 | XMS_ITS | Encounter Summary ---
Author Organization [facility] Address [address] [place] [address] Care Team Providers Care Interlocker Name Role Phone Brian Santos MD Primary Care Provider [phone] Encounter Details Date Type Department Care Team (Late st Contact Info) Description 09/27/2019 Lab Requisition [facility] Pathology & Laboratory Medicine - [address] [phone] Outr Resulting Lab, Provider Social History Tobacco [...] Procedure Name Priority Date/Time Associated Diagnosis Comments ACUTE HEPATITIS PROFILE Routine 09/26/2019 22:20 EDT documented in this encounter Results * ACUTE HEPATITIS PROFILE (09/26/2019 22:20 EDT) Hep B Surface Ag Negative Negative 09/28/2019 9:50 EDT [facility] Hep C Antibody Negative Negative 09/28/2019 9:50 EDT [facility] Hepatitis A Antibody, IgM Negative Negative 09/28/2019 9:50 EDT [facility] Comment: The results of this assay can be falsely lowered due to the consumption of Biotin. Hepatitis B Core Ab, Total Negative Negative 09/28/2019 9:50 EDT [facility] Blood VENOUS BLOOD / Unknown 09/26/2019 22:20 EDT 09/27/2019 16:28 EDT Provider Outr Resulting Lab CHEMISTRY & BLOOD GAS ORDERABLES [facility] [address] [place] [address] documented in this encounter Visit Diagnoses Not on filedocumented in this encounter Additional Health Concerns Infection Onset Date Last Indicated Resolved Time COVID-19 10/09/2021 10/09/2021 10/29/2021 22:1 5 EDT documented as of this encounter Care Teams Interlocker Relationship Specialty Start Date End Date Brian Santos MD [address] [place] [phone] PCP - General 02/23/15 documented as of this encounter
--- OUTSIDE RECORDS SUMMARY | 2023-12-09 09:08 | XMS_ITS | Encounter Summary ---
Author Organization [facility] Address [address] [place] [address] Care Team Providers Care Drop Board Man Name Role Phone Brian Santos MD Primary Care Provider [phone] Encounter Details Date Type Department Care Team (Late st Contact Info) Description 03/15/2019 Lab Requisition [facility] Pathology & Laboratory Medicine - [address] [address] Unknown, ProviderMD Social History Tobacco Use Types [...] Comments CHLAMYDIA/N. GONORRHOEAE AMPLIFIED NUCLEIC ACID Routine 03/15/2019 12:40 EST documented in this encounter Results * CHLAMYDIA/N. GONORRHOEAE AMPLIFIED RNA (03/15/2019 12:40 EST) Neisseria gonorrhoeae Result Negative Negative 03/16/2019 13:12 EST [facility] Chlamydia trachomatis Result Negative Negative 03/16/2019 13:12 EST [facility] Urine URINE / Unknown 03/15/2019 1 2:40 EST 03/15/2019 22:00 EST Narrative [facility] - 03/16/2019 13:12 EST A first catch urine specimen is acceptable for detection of Gonorrhea and Chlamydia, but might detect up to 10% fewer infections when compared with vaginal and endocervical swab samples. Provider Unknown MICROBIOLOGY - DANICA GALLEGOS ORDERABLES [facility] [address] [place] [address] documented in this encounter Visit Diagnoses Not on filedocumented in this encounter Additional Health Concerns Infection Onset Date Last Indicated Resolved Time COVID-19 10/09/2021 10/09/2021 10/29/2021 22:1 5 EDT documented as of this encounter Care Teams Drop Board Man Relationship Specialty Start Date End Date Brian Santos MD [address] [place] [phone] PCP - General 02/23/15 documented as of this encounter
--- OUTSIDE RECORDS SUMMARY | 2023-12-09 09:08 | XMS_ITS | Encounter Summary ---
Author Organization [facility] Address [address] [place] [address] Care Team Providers Care Furnace Mason Name Role Phone Brian Santos MD Primary Care Provider [phone] Encounter Details Date Type Department Care Team (Late st Contact Info) Description 01/28/2020 Lab Requisition [facility]ology & Laboratory Medicine - Main [address] [id number] Outr Resulting Lab, Provider Social History Tobacco [...] Comments CHLAMYDIA/N. GONORRHOEAE AMPLIFIED NUCLEIC ACID Routine 01/28/2020 10:20 EDT documented in this encounter Results * CHLAMYDIA/N. GONORRHOEAE AMPLIFIED RNA (01/28/2020 10:20 EDT) Neisseria gonorrhoeae Result Negative Negative 01/31/2020 15:38 EDT [facility] Chlamydia trachomatis Result Negative Negative 01/31/2020 15:38 EDT [facility] Swab ENTIRE WALL OF CERVIX / Unknown 01/28/2020 10:20 EDT 01/28/2020 21:09 EDT Provider Outr Resulting Lab MICROBIOLOGY - GENERAL ORDERABLES [facility] [address] [place] [address] documented in this encounter Visit Diagnoses Not on filedocumented in this encounter Additional Health Concerns Infection Onset Date Last Indicated Resolved Time COVID-19 10/09/2021 10/09/2021 10/29/2021 22:1 5 EDT documented as of this encounter Care Teams Furnace Mason Relationship Specialty Start Date End Date Brian Santos MD [address] [place] [id number] PCP - General 02/23/15 documented as of this encounter
[2023-12-09 09:13] VITALS: BP 102/65; PULSE 64; RESP 16; TEMP 37.2; O2SAT 97
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
[2023-12-09] MEDS: Amoxicillin 875 MG TAB PO (10:05)
[2023-12-09 10:15] LABS: Mono Screening Negative (Negative)
[2023-12-09 10:30] VITALS: RESP 16
== END 2023-12-09 10:31 | disposition home or self-care (01) ==
PROVIDERS: Emergency Provider Emergency Medicine; PCP Student in an Organized Health Care Education/Training Program
DX: J06.9 Acute upper respiratory infection, unspecified (principal); H66.91 Otitis media, unspecified, right ear; F17.290 Nicotine dependence, other tobacco product, uncomplicated
CPT/HCPCS: 36415; 87426; 99283; 86308

== ENCOUNTER 2024-02-20 12:10 | Outpatient (REF) | payer MEDICAID, SELFPAY ==
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
--- OUTSIDE RECORDS SUMMARY | 2024-02-20 12:14 | XMS_ITS | Continuity of Care Document ---
Author Organization [facility] Address [address] [place] [id number] Care Team Providers Care Pressure Control Supervisor Name Role Phone Tisha Huitron Primary Care Physician Encounter [facility] [id number] Date(s): 11/20/23 - 11/21/[address] [facility] Encounter Diagnosis Allergy to food(Discharge Diagnosis) - 11/20/23 Discharge Disposition: Home or Self Care Attending Physician: Sage Cooper Admitting Physician: Sage Cooper Referring Physician: Tisha Huitron Allergies, Adverse Reactions, Alerts Substance Criticality Severity Reaction Reaction Severity Status tetanus/diphth/pertu ss (Tdap) adult/adol Unable to assess criticality Unknown Active Medications No Known Medications Problem List Condition Confirmation Course Effective Dates Status Health St atus Informant Abdominal pain Confirmed Active Allergic reaction Confirmed Active Back pain Confirmed Active Chest pain Confirmed Active Vital Signs Most recent to oldest [Reference Range]: 1 2 3 Temperature Oral [35.8-37.3 Deg C] 37.0 Deg C (11/20/23 9:36 PM) Peripheral Pulse Rate [60-100 bpm] 79 bpm (11/21/23 12:27 AM) 91 bpm (11/20/23 9:36 PM) Heart Rate Monitored [60-100 bpm] 82 bpm (11/20/23 11:51 PM) 84 bpm (11/20/23 10:59 PM) 82 bpm (11/20/23 10:10 PM) Respiratory Rate [12-24 br/min] 16 br/min (11/21/23 12:27 AM) 19 br/min (11/20/23 11:51 PM) 21 br/min (11/20/23 10:59 PM) Blood Pressure [90-140/60-90 mmHg] 111/67mmHg (8/9/24 12:27 AM) 108/73mmHg (11/20/23 11:51 PM) 120/60mmHg (11/20/23 10:59 PM) Blood Pressure Location Left arm (11/20/23 11:51 PM) Left arm (11/20/23 10:59 PM) Left arm (11/20/23 10:10 PM) Blood Pressure Method Automatic (11/20/23 11:51 PM) Automatic (11/20/23 10:59 PM) Automatic (11/20/23 10:10 PM) Mean Arterial Pressure Cuff 85 mmHg (11/20/23 11:51 PM) 80 mmHg (11/20/23 10:59 PM) 77 mmHg (11/20/23 10:10 PM) Weight Dosing 69.400 kg (11/20/23 9:36 PM) Body Mass Index 27.1 kg/m2 (11/20/23 9:36 PM) Height 160.02 cm (11/20/23 9:36 PM) Weight 69.4 kg (11/20/23 9:36 PM) Social History Social History Type Response Tobacco Never tobacco user T obacco Use:. Sex Hospital Discharge Instructions Patient Education 11/20/2023 22:53:25 Food Allergy Food Allergy A food allergy is an abnormal reaction to a food (food allergen) by the body's defense system (immune system). Foods that commonly cause allergies include: ??? Milk. ??? Seafood. ??? Eggs. ??? Peanuts. ??? Wheat. ??? Soy. ??? Tree nuts such as pecans, walnuts, and cashews. What are the causes? Food allergies happen when the immune system sees a food as harmful and releases proteins (antibodies) to fight it. What are the signs or symptoms? Symptoms may be mild or severe. They usually start minutes after eating the food, but they can occur even a few hours later. In people with a severe allergy, symptoms can start within seconds. Mild symptoms of this condition include: ??? Congested nose. ??? Tingling in the mouth. ??? An itchy, red rash. ??? Vomiting. ??? Diarrhea. In people with a severe allergy, a life-threatening reaction can occur called anaphylaxis. Get helpright away if you have symptoms of anaphylaxis, such as: ??? Feeling director meetings the face (flushed). This may include redness. ??? Itchy, red, swollen areas of skin (hives). ??? Swelling of the eyes, lips, face, mouth, tongue, or throat. ??? Difficulty breathing, speaking, or swallowing. ??? Noisy breathing, high-pitched whistling sounds when you breathe, most often when you breathe out (wheezing). ??? Dizziness, light-headedness, or fainting. ??? Pain or cramping in the abdomen. How is this diagnosed? This condition may be diagnosed based on: ??? A physical exam. ??? Your medical history. ??? Skin tests. ??? Blood tests. ??? A food challenge test. This test involves eating the food that may be causing the allergic response while being monitored for a reaction by your health care provider. ??? The results of an elimination diet. The elimination diet involves removing foods from your dietand then adding them back in, one at a time. ??? A food diary. How is this treated? There is no cure for food allergies. Treatment focuses on preventing exposure to the food or foods you are allergic to and treating reactions if you are exposed to the food. Mild symptoms may not need treatment. Severe reactions usually need to be treated at a hospital. Treatment may include: ??? Medicines that help: ??? Tighten your blood vessels (epinephrine). ??? Relieve itching and hives (antihistamines). ??? Widen the narrow and tight airways (bronchodilators). ??? Reduce swelling (corticosteroids). ??? Oxygen therapy to help you breathe. ??? IV fluids to keep you hydrated. After a severe reaction, you may be given rescue medicines, such as: ??? An anaphylaxis kit. ??? An epinephrine injection, commonly called an auto-injector pen (pre-filled automatic epinephrine injection device). Your health care provider may teach you how to use these if you are accidentally exposed to an allergen. Follow these instructions at home: If you have a potential allergy: ??? Follow the elimination diet as told by your health care provider. ??? Keep a food diary as told by your health care provider. Every day, write down: ??? What you eat and drink and when. ??? What symptoms you have and when. If you have a severe allergy: ??? Wear a medical alert bracelet or necklace that describes your allergy. ??? Carry your anaphylaxis kit or an auto-injector pen with you at all times. Use them as told by your health care provider. ??? Make sure that you, your family members, and your employer know: ??? The signs of anaphylaxis. ??? How to use an anaphylaxis kit. ??? How to use an auto-injector pen. ??? If you think that you are having an anaphylactic reaction, use your auto- injector pen or anaphylaxis kit. ??? Replace your epinephrine immediately after you use your auto-injector pen. This is important ifyou have another reaction. If possible, carry two epinephrine auto-injector pens. ??? Get medical care after using your auto-injector pen. This is important because you can have a delayed, life-threatening reaction after taking the medicine (rebound anaphylaxis). General instructions ??? Avoid the foods that you are allergic to. ??? Read food labels before you eat packaged items. Look for ingredients that you are allergic to. ??? When you are at a restaurant, tell your room service food server that you have an allergy. If you are unsure whether a meal has an ingredient that you are allergic to, ask your room service food server. ??? Take cxlg-dmb-tgagspo and prescription medicines only as told by your health care provider. ??? Do not drive or operate machinery until your health care provider says that it is safe. ??? Inform all of your health care providers that you have a food allergy. ??? Work with your health care providers to make an anaphylaxis plan. Preparation is important. ??? If you think that you might be allergic to something else, talk with your health care provider.Do not eat a food to see if you are allergic to it without talking with your health care provider first. Contact a health care provider if: ??? You have symptoms that do not go away within 2 days. ??? You have symptoms that get worse. ??? You have new symptoms. Get help right away if you have symptoms of anaphylaxis: ??? Flushed skin. ??? Hives. ??? Swelling of the eyes, lips, face, mouth, tongue, or throat. ??? Difficulty breathing, speaking, or swallowing. ??? Wheezing. ??? Dizziness, light-headedness or fainting. ??? Pain or cramping in the abdomen. These symptoms may represent a serious problem that is an emergency. Do not wait to see if the symptoms will go away. Use your auto-injector pen or anaphylaxis kit as you have been told. Get medical help right away. Call your local emergency services (911 in the [place] Do not drive yourself to the hospital. If you needed to use an auto-injector pen, you need more medical care even if the medicine seems sun helping. This is important because anaphylaxis may happen again within 72 hours. Summary ??? A food allergy is an abnormal reaction to a food (food allergen) by the body's defense system (immune system). ??? There is no cure for food allergies. Treatment focuses on preventing exposure to the food or foods you are allergic to and treating reactions if you are exposed to the food. ??? Wear a medical alert bracelet or necklace that describes your allergy. ??? If you have symptoms of anaphylaxis, use your auto-injector pen or anaphylaxis kit as you have been instructed, and get medical help right away. This information is not intended to replace advice given to you by your health care provider. Make sure you discuss any questions you have with your health care provider. Document Revised: 07/17/2021 Document Reviewed: 07/17/2021 [facility] Patient Education ?? 2022 [email or web address]. 11/20/2023 22:53:24 Allergies, Adult Allergies, Adult An allergy is a condition in which the body's defense system (immune system) comes in contact with an allergen and reacts to it. An allergen is anything that causes an allergic reaction. Allergens cause the immune system to make proteins for fighting infections (antibodies). These antibodies cause cells to release chemicals called histamines that set off the symptoms of an allergic reaction. Allergies often affect the nasal passages (allergic rhinitis), eyes (allergic conjunctivitis), skin(atopic dermatitis), and stomach. Allergies can be mild, moderate, or severe. They cannot spread from person to person. Allergies can develop at any age and may be outgrown. What are the causes? This condition is caused by allergens. Common allergens include: ??? Outdoor allergens, such as pollen, car fumes, and mold. ??? Indoor allergens, such as dust, smoke, mold, and pet dander. ??? Other allergens, such as foods, medicines, scents, insect bites or stings, and other skin irritants. What increases the risk? You are more likely to develop this condition if you have: ??? Family members with allergies. ??? Family members who have any condition that may be caused by allergens, such as asthma. This maymake you more likely to have other allergies. What are the signs or symptoms? Symptoms of this condition depend on the severity of the allergy. Mild to moderate symptoms ??? Runny nose, stuffy nose (nasal congestion), or sneezing. ??? Itchy mouth, ears, or throat. ??? A feeling of mucus dripping down the back of your throat (postnasal drip). ??? Sore throat. ??? Itchy, red, watery, or puffy eyes. ??? Skin rash, or itchy, red, swollen areas of skin (hives). ??? Stomach cramps or bloating. Severe symptoms Severe allergies to food, medicine, or insect bites may cause anaphylaxis, which can be life-threatening. Symptoms include: ??? A red (flushed) face. ??? Wheezing or coughing. ??? Swollen lips, tongue, or mouth. ??? Tight or swollen throat. ??? Chest pain or tightness, or rapid heartbeat. ??? Trouble breathing or shortness of breath. ??? Pain in the abdomen, vomiting, or diarrhea. ??? Dizziness or fainting. How is this diagnosed? This condition is diagnosed based on your symptoms, your family and medical history, and a physicalexam. You may also have tests, including: ??? Skin tests to see how your skin reacts to allergens that may be causing your symptoms. Tests include: ??? Skin prick test. For this test, an allergen is introduced to your body through a small opening in the skin. ??? Intradermal skin test. For this test, a small amount of allergen is injected under the first layer of your skin. ??? Patch test. For this test, a small amount of allergen is placed on your skin. The area is covered and then checked after a few days. ??? Blood tests. ??? A challenge test. For this test, you will eat or breathe in a small amount of allergen to see if you have an allergic reaction. You may also be asked to: ??? Keep a food diary. This is a record of all the foods, drinks, and symptoms you have in a day. ??? Try an elimination diet. To do this: ??? Remove certain foods from your diet. ??? Add those foods back one by one to find out if any foods cause an allergic reaction. How is this treated? Treatment for allergies depends on your symptoms. Treatment may include: ??? Cold, wet cloths (cold compresses) to soothe itching and swelling. ??? Eye drops or nasal sprays. ??? Nasal irrigation to help clear your mucus or keep the nasal passages moist. ??? A humidifier to add moisture to the air. ??? Skin creams to treat rashes or itching. ??? Oral antihistamines or other medicines to block the reaction or to treat inflammation. ??? Diet changes to remove foods that cause allergies. ??? Being exposed again and again to tiny amounts of allergens to help you build a defense against it (tolerance). This is called immunotherapy. Examples include: ??? Allergy shot. You receive an injection that contains an allergen. ??? Sublingual immunotherapy. You take a small dose of allergen under your tongue. ??? Emergency injection for anaphylaxis. You give yourself a shot using a syringe (auto-injector) that contains the amount of medicine you need. Your health care provider will teach you how to give yourself an injection. Follow these instructions at home: Medicines ??? Take or apply gygi-oit-qlvcshr and prescription medicines only as told by your health care provider. ??? Always carry your auto-injector pen if you are at risk of anaphylaxis. Give yourself an injection as told by your health care provider. Eating and drinking ??? Follow instructions from your health care provider about eating or drinking restrictions. ??? Drink enough fluid to keep your urine pale yellow. General instructions ??? Wear a medical alert bracelet or necklace to let others know that you have had anaphylaxis before. ??? Avoid known allergens whenever possible. ??? Keep all follow-up visits as told by your health care provider. This is important. Contact a health care provider if: ??? Your symptoms do not get better with treatment. Get help right away if: ??? You have symptoms of anaphylaxis. These include: ??? Swollen mouth, tongue, or throat. ??? Pain or tightness in your chest. ??? Trouble breathing or shortness of breath. ??? Dizziness or fainting. ??? Severe abdominal pain, vomiting, or diarrhea. These symptoms may represent a serious problem that is an emergency. Do not wait to see if the symptoms will go away. Get medical help right away. Call your local emergency services (911 in the [place] Do not drive yourself to the hospital. Summary ??? Take or apply zglq-hsa-fviindr and prescription medicines only as told by your health care provider. ??? Avoid known allergens when possible. ??? Always carry your auto-injector pen if you are at risk of anaphylaxis. Give yourself an injection as told by your health care provider. ??? Wear a medical alert bracelet or necklace to let others know that you have had anaphylaxis before. ??? Anaphylaxis is a life-threatening emergency. Get help right away. This information is not intended to replace advice given to you by your health care provider. Make sure you discuss any questions you have with your health care provider. Document Revised: 11/27/2020 Document Reviewed: 02/09/2020 [facility] Patient Education ?? 2022 [email or web address]. Follow Up Care 11/20/2023 21:26:59 With:Tisha Huitron Address: [address] [place] [id number]- When:1 to 2 weeks Physician Emergency department Note * Sage Cooper: PERFORM Event Display: ED Note Physician Authored Date: [id number] JAG CASSIDY :2000 Age:23 years Sex:Female Visit Date:11/20/2023 Primary Care Physician: Tisha Huitron Basic Information Time Seen: Sage Cooper / 11/20/2023 21:48 Chief Complaint Pt. BIBEMS w/allergic reaction-c/o chest tightness, numbness to throat and tongue and nausea. ??Pt.denies any voice change, shortness of breath or hives/itching. History Of Present Illness: This patient ate some type of processed barbecue pork tonight??and felt itchy.?? She called the ambulance. ??She was given 25 of Benadryl IM on scene.?? She also felt some tightness in her chest. ??By time she arrived here??she was feeling essentially back to normal.?? She has not had any problems like this before. Review of Systems: Review of systems are negative for fever chills. ??Negative for visual change.?? Negative for runnynose sore throat lip swelling tongue swelling or throat swelling.?? Negative for neck swelling, shortness of breath, chest pain. ??Negative for abdominal pain, nausea, vomiting, diarrhea.?? The rest of review of systems are negative. Physical Exam Vitals & Measurements T:??37.0?C ??(Oral)?? HR:??82??(Monitored)?? RR:??19?? BP:??108/73?? SpO2:??98%?? HT:??160.02??cm?? WT:??69.4??kg?? BMI:??27.1?? O2 Therapy:??Room air?? On exam patient is awake alert??in no acute distress. ??Head normocephalic atraumatic.?Nose is clear.?? Mouth with normal lips and tongue.?? Throat is clear. ??Voice is normal. ??Neck is supple without adenopathy or swelling.?? Chest with clear lung bose. ??Heart is regular without murmur. ??Abdomen??is supple and nontender. ??Extremities no cyanosis clubbing or edema. Medical Decision Making: Luna diagnosis includes??reaction such as to monosodium glutamate,??also in the differentialwould be pork allergy??though she also had macaroni and cheese??and has had pork and macaroni and cheese without difficulty however this was a preprepared??barbecued pork so it may be one of the ingredients of the barbecue sauce.?? In either event she has no systemic rash??facial lip or mouth swelling??cough or runny nose at this point.?? She does say that her tongue feels slightly funny at this point.?? She has had 25 of Benadryl IM just prior to arrival??so at this point we will just observe her.?? If she develops any more symptoms??would go if steroids??histamine blockers etc.??patient later said that her tongue felt funny??but was not really swollen so we went ahead and gave her 125 mg of Solu-Medrol IV??and 20 of Pepcid IV.?? Currently she feels??back to normal and wishes to be discharged.?? As she never really had??a visible allergic reaction we will not put her on prolonged steroids but she can take Benadryl every 6 hours for couple of days.?? She can follow-up with her provider as needed. Procedure No Qualifying Data Assessment/Plan 1.??Allergy to food??Z91.018 Patient Education Food Allergy Allergies, Adult Follow Up With When Contact Information Tisha Huitron Within 1 to [address] [place] [id number]- Additional Instructions: Problem List/Past Medical History Ongoing Abdominal pain Allergic reaction Back pain Chest pain Historical No qualifying data Allergies tetanus/diphth/pertuss (Tdap) adult/adol Social History Alcohol Never Electronic Cigarette/Vaping Electronic Cigarette Use: Use, within last 90 days. Type: Nicotine infused. Use per Day: 1-25 Inhales/day. Substance Use Never Tobacco Never tobacco user Tobacco Use:. Diagnostic Results No qualifying data available. Electronically Signed on 11/20/2023 23:54 EDT Sage Cooper Emergency department Discharge instructions * Sage Cooper: PERFORM Event Display: ED Discharge Information Authored Date: [id number] JAG CASSIDY :2000 Age:23 years Sex:Female Visit Date:11/20/2023 Primary Care Physician: Tisha Huitron Discharge Instructions We would like to thank you for allowing us to assist you with your healthcare needs. The following includes patient education materials and information regarding your injury/illness. Diagnosis from Today's Visit Allergy to food Discharge Vitals Temperature??(Oral) 98.6 ??F (37.0 ??C) Heart Rate??(Monitored) 82 Respiratory Rate?? 19 Blood Pressure?? 108/73?? SpO2?? 98% Height?? 63.00 in (160.02 cm) Weight?? 153.03 lb (69.4 kg) BMI?? 27.1 Allergies tetanus/diphth/pertuss (Tdap) adult/adol What to Do Next Instructions from Your Care Team Go home and get the package??that you are??barbecue pork came in and get the ingredients list of that.?? Take it with you and follow-up with your provider to see if he can figure out what you are allergic to.?? You should take Benadryl every 6 hours for the next 2 to 3 days.?? If symptoms return orsomething worsens as always feel free to return to the emergency department You Need to Schedule the Following Appointments Follow Up with??Tisha Huitron When:??Within 1 to 2 weeks Where: [address] [place] [address] You were treated today on an emergency basis; it may be garcia to contact your primary care provider to notify them of your visit today. You may have been referred to your regular doctor or a specialist, please follow up as instructed. If your condition worsens or you can't get in to see the doctor, contact the Emergency Department. Education Materials Food Allergy A food allergy is an abnormal reaction to a food (food allergen) by the body's defense system (immune system). Foods that commonly cause allergies include: ? Milk. ? Seafood. ? Eggs. ? Peanuts. ? Wheat. ? Soy. ? Tree nuts such as pecans, walnuts, and cashews. What are the causes? Food allergies happen when the immune system sees a food as harmful and releases proteins (antibodies) to fight it. What are the signs or symptoms? Symptoms may be mild or severe. They usually start minutes after eating the food, but they can occur even a few hours later. In people with a severe allergy, symptoms can start within seconds. Mild symptoms of this condition include: ? Congested nose. ? Tingling in the mouth. ? An itchy, red rash. ? Vomiting. ? Diarrhea. In people with a severe allergy, a life-threatening reaction can occur called anaphylaxis. Get helpright away if you have symptoms of anaphylaxis, such as: ? Feeling director meetings the face (flushed). This may include redness. ? Itchy, red, swollen areas of skin (hives). ? Swelling of the eyes, lips, face, mouth, tongue, or throat. ? Difficulty breathing, speaking, or swallowing. ? Noisy breathing, high-pitched whistling sounds when you breathe, most often when you breathe out (wheezing). ? Dizziness, light-headedness, or fainting. ? Pain or cramping in the abdomen. How is this diagnosed? This condition may be diagnosed based on: ? A physical exam. ? Your medical history. ? Skin tests. ? Blood tests. ? A food challenge test. This test involves eating the food that may be causing the allergic responsewhile being monitored for a reaction by your health care provider. ? The results of an elimination diet. The elimination diet involves removing foods from your diet andthen adding them back in, one at a time. ? A food diary. How is this treated? There is no cure for food allergies. Treatment focuses on preventing exposure to the food or foods you are allergic to and treating reactions if you are exposed to the food. Mild symptoms may not need treatment. Severe reactions usually need to be treated at a hospital. Treatment may include: ? Medicines that help: ? Tighten your blood vessels (epinephrine). ? Relieve itching and hives (antihistamines). ? Widen the narrow and tight airways (bronchodilators). ? Reduce swelling (corticosteroids). ? Oxygen therapy to help you breathe. ? IV fluids to keep you hydrated. After a severe reaction, you may be given rescue medicines, such as: ? An anaphylaxis kit. ? An epinephrine injection, commonly called an auto-injector pen (pre-filled automatic epinephrine injection device). Your health care provider may teach you how to use these if you are accidentally exposed to an allergen. Follow these instructions at home: If you have a potential allergy: ? Follow the elimination diet as told by your health care provider. ? Keep a food diary as told by your health care provider. Every day, write down: ? What you eat and drink and when. ? What symptoms you have and when. If you have a severe allergy: ? Wear a medical alert bracelet or necklace that describes your allergy. ? Carry your anaphylaxis kit or an auto-injector pen with you at all times. Use them as told by your health care provider. ? Make sure that you, your family members, and your employer know: ? The signs of anaphylaxis. ? How to use an anaphylaxis kit. ? How to use an auto-injector pen. ? If you think that you are having an anaphylactic reaction, use your auto- injector pen or anaphylaxis kit. ? Replace your epinephrine immediately after you use your auto-injector pen. This is important if youhave another reaction. If possible, carry two epinephrine auto-injector pens. ? Get medical care after using your auto-injector pen. This is important because you can have a delayed, life-threatening reaction after taking the medicine (rebound anaphylaxis). General instructions ? Avoid the foods that you are allergic to. ? Read food labels before you eat packaged items. Look for ingredients that you are allergic to. ? When you are at a restaurant, tell your room service food server that you have an allergy. If you are unsure whether a meal has an ingredient that you are allergic to, ask your room service food server. ? Take powh-iij-ikosses and prescription medicines only as told by your health care provider. ? Do not drive or operate machinery until your health care provider says that it is safe. ? Inform all of your health care providers that you have a food allergy. ? Work with your health care providers to make an anaphylaxis plan. Preparation is important. ? If you think that you might be allergic to something else, talk with your health care provider. Do not eat a food to see if you are allergic to it without talking with your health care provider first. Contact a health care provider if: ? You have symptoms that do not go away within 2 days. ? You have symptoms that get worse. ? You have new symptoms. Get help right away if you have symptoms of anaphylaxis: ? Flushed skin. ? Hives. ? Swelling of the eyes, lips, face, mouth, tongue, or throat. ? Difficulty breathing, speaking, or swallowing. ? Wheezing. ? Dizziness, light-headedness or fainting. ? Pain or cramping in the abdomen. These symptoms may represent a serious problem that is an emergency. Do not wait to see if the symptoms will go away. Use your auto-injector pen or anaphylaxis kit as you have been told. Get medical help right away. Call your local emergency services (911 in the [place] Do not drive yourself to the hospital. If you needed to use an auto-injector pen, you need more medical care even if the medicine seems sun helping. This is important because anaphylaxis may happen again within 72 hours. Summary ? A food allergy is an abnormal reaction to a food (food allergen) by the body's defense system (immune system). ? There is no cure for food allergies. Treatment focuses on preventing exposure to the food or foods you are allergic to and treating reactions if you are exposed to the food. ? Wear a medical alert bracelet or necklace that describes your allergy. ? If you have symptoms of anaphylaxis, use your auto-injector pen or anaphylaxis kit as you have beeninstructed, and get medical help right away. This information is not intended to replace advice given to you by your health care provider. Make sure you discuss any questions you have with your health care provider. Document Revised: 07/17/2021 Document Reviewed: 07/17/2021 Else[employer] Patient Education ?? 2022 [employer] Allergies, Adult An allergy is a condition in which the body's defense system (immune system) comes in contact with an allergen and reacts to it. An allergen is anything that causes an allergic reaction. Allergens cause the immune system to make proteins for fighting infections (antibodies). These antibodies cause cells to release chemicals called histamines that set off the symptoms of an allergic reaction. Allergies often affect the nasal passages (allergic rhinitis), eyes (allergic conjunctivitis), skin(atopic dermatitis), and stomach. Allergies can be mild, moderate, or severe. They cannot spread from person to person. Allergies can develop at any age and may be outgrown. What are the causes? This condition is caused by allergens. Common allergens include: ? Outdoor allergens, such as pollen, car fumes, and mold. ? Indoor allergens, such as dust, smoke, mold, and pet dander. ? Other allergens, such as foods, medicines, scents, insect bites or stings, and other skin irritants. What increases the risk? You are more likely to develop this condition if you have: ? Family members with allergies. ? Family members who have any condition that may be caused by allergens, such as asthma. This may make you more likely to have other allergies. What are the signs or symptoms? Symptoms of this condition depend on the severity of the allergy. Mild to moderate symptoms ? Runny nose, stuffy nose (nasal congestion), or sneezing. ? Itchy mouth, ears, or throat. ? A feeling of mucus dripping down the back of your throat (postnasal drip). ? Sore throat. ? Itchy, red, watery, or puffy eyes. ? Skin rash, or itchy, red, swollen areas of skin (hives). ? Stomach cramps or bloating. Severe symptoms Severe allergies to food, medicine, or insect bites may cause anaphylaxis, which can be life-threatening. Symptoms include: ? A red (flushed) face. ? Wheezing or coughing. ? Swollen lips, tongue, or mouth. ? Tight or swollen throat. ? Chest pain or tightness, or rapid heartbeat. ? Trouble breathing or shortness of breath. ? Pain in the abdomen, vomiting, or diarrhea. ? Dizziness or fainting. How is this diagnosed? This condition is diagnosed based on your symptoms, your family and medical history, and a physicalexam. You may also have tests, including: ? Skin tests to see how your skin reacts to allergens that may be causing your symptoms. Tests include: ? Skin prick test. For this test, an allergen is introduced to your body through a small opening in the skin. ? Intradermal skin test. For this test, a small amount of allergen is injected under the first layer of your skin. ? Patch test. For this test, a small amount of allergen is placed on your skin. The area is covered and then checked after a few days. ? Blood tests. ? A challenge test. For this test, you will eat or breathe in a small amount of allergen to see if you have an allergic reaction. You may also be asked to: ? Keep a food diary. This is a record of all the foods, drinks, and symptoms you have in a day. ? Try an elimination diet. To do this: ? Remove certain foods from your diet. ? Add those foods back one by one to find out if any foods cause an allergic reaction. How is this treated? Treatment for allergies depends on your symptoms. Treatment may include: ? Cold, wet cloths (cold compresses) to soothe itching and swelling. ? Eye drops or nasal sprays. ? Nasal irrigation to help clear your mucus or keep the nasal passages moist. ? A humidifier to add moisture to the air. ? Skin creams to treat rashes or itching. ? Oral antihistamines or other medicines to block the reaction or to treat inflammation. ? Diet changes to remove foods that cause allergies. ? Being exposed again and again to tiny amounts of allergens to help you build a defense against it (tolerance). This is called immunotherapy. Examples include: ? Allergy shot. You receive an injection that contains an allergen. ? Sublingual immunotherapy. You take a small dose of allergen under your tongue. ? Emergency injection for anaphylaxis. You give yourself a shot using a syringe (auto-injector) that contains the amount of medicine you need. Your health care provider will teach you how to give yourself an injection. Follow these instructions at home: Medicines ? Take or apply psrn-jak-yleqcac and prescription medicines only as told by your health care provider. ? Always carry your auto-injector pen if you are at risk of anaphylaxis. Give yourself an injection as told by your health care provider. Eating and drinking ? Follow instructions from your health care provider about eating or drinking restrictions. ? Drink enough fluid to keep your urine pale yellow. General instructions ? Wear a medical alert bracelet or necklace to let others know that you have had anaphylaxis before. ? Avoid known allergens whenever possible. ? Keep all follow-up visits as told by your health care provider. This is important. Contact a health care provider if: ? Your symptoms do not get better with treatment. Get help right away if: ? You have symptoms of anaphylaxis. These include: ? Swollen mouth, tongue, or throat. ? Pain or tightness in your chest. ? Trouble breathing or shortness of breath. ? Dizziness or fainting. ? Severe abdominal pain, vomiting, or diarrhea. These symptoms may represent a serious problem that is an emergency. Do not wait to see if the symptoms will go away. Get medical help right away. Call your local emergency services (911 in the [place] Do not drive yourself to the hospital. Summary ? Take or apply rjwp-wgx-gsynpxd and prescription medicines only as told by your health care provider. ? Avoid known allergens when possible. ? Always carry your auto-injector pen if you are at risk of anaphylaxis. Give yourself an injection as told by your health care provider. ? Wear a medical alert bracelet or necklace to let others know that you have had anaphylaxis before. ? Anaphylaxis is a life-threatening emergency. Get help right away. This information is not intended to replace advice given to you by your health care provider. Make sure you discuss any questions you have with your health care provider. Document Revised: 11/27/2020 Document Reviewed: 02/09/2020 Elsevier Patient Education ?? 2022 [employer] Patient/Pre Parole Counseling Aide Signature Patient Name:JAG CASSIDY I have received this information and my questions have been answered. Patient/Pre Parole Counseling Aide Name: Patient/Pre Parole Counseling Aide Signature: Relationship to Patient: Witness Name/Signature: Date: Electronically Signed on 11/20/2023 23:54 EDT [facility] Patient Care team information Care Team Personnel Name: Tisha Huitron Position: No Access Member Role: Primary Care Physician Address: Address: [address] [place] [phone]
--- OUTSIDE RECORDS SUMMARY | 2024-02-20 12:14 | XMS_ITS | Continuity of Care Document ---
Author Organization [facility] Address [address] [place] [id number] Care Team Providers Care Resistor Winder Name Role Phone Tisha Huitron Primary Care Physician Encounter [facility] [id number] Date(s): 11/01/23 - 11/02/[address] [place] Encounter Diagnosis Abdominal pain(Discharge Diagnosis) - 11/02/23 Discharge Disposition: Home or Self Care Attending Physician: Ever Irwin MD Admitting Physician: Ever Irwin MD Allergies, Adverse Reactions, Alerts Substance Criticality Severity Reaction Reaction Severity Status tetanus/diphth/pertu ss (Tdap) adult/adol Unable to assess criticality Unknown Active Medications No Known Medications Mental Status 11/01/23 Eye Opening Response [place] Spontaneous ly Best Verbal Response [place] Oriented Best Motor Response [place] Obeys comman ds [place] Coma Score 15 Problem List Condition Confirmation Course Effective Dates Status Health St atus Informant Abdominal pain Confirmed Active Back pain Confirmed Active Chest pain Confirmed Active Results Laboratory List Name Date Automated Diff 11/02/23 Beta hCG Qualitative Urine ( Te st Urine Qual) 11/02/23 CBC w/ Diff 11/02/23 Comprehensive Metabolic Panel (CMP) 11/01 Urinalysis with Microscopic if Indicated (UA with Microscopic if Indicated) 11/02/23 Most recent to oldest [Reference Range]: 1 WBC [4.80-10.80 x10^3/mcL] 6.08 x10^3/mc L (11/02/23 12:27 AM) RBC [3.90-5.03 x10^6/mcL] 4.38 x10^6/mcL (11/02/23 12:27 AM) Neutro Auto [40.0-74.0 /100(WBCs)] 51.4 /100(WBCs) (11/02/23 12:27 AM) Lymph Auto [19.0-48.0 /100(WBCs)] 39.8 / 100(WBCs) (11/02/23 12: AM) [place] Auto [3.0-10.0 /100(WBCs)] 6.3 /100 (WBCs) (11/02/23 12: AM) Basophil Auto [0.00-2.00 /100(WBCs)] 0.5 0 /100(WBCs) (11/02/23: AM) BUN [7-18 mg/dL] 10 mg/dL (11/02/23 AM) UA Color [Yellow] Yellow (11/02/23 AM) Glucose Level [70-100 mg/dL] 119 mg/dL *HI* (11/02/23 AM) Potassium Level [3.5-5.1 mEq/L] 3.3 mEq/ L *LOW* (11/02/23 AM) Baso Absolute [0.00-0.20 x10^3/mcL] 0.03 x10^3/mcL (11/02/23 AM) MCV [81.0-99.0 fL] 89.5 fL (11/02/23 AM) UA Urobilinogen [0.2] 2.0 *ABN* (11/02/23: AM) UA Bili [Negative] Negative (11/02/23 AM) UA Ketones [Negative] 1+ *ABN* (11/02/23 AM) AST [15-37 unit/L] 11 unit/L *LOW* (11/02/23 AM) ALT [14-59 unit/L] 14 unit/L (11/02/23 AM) MCHC [33.0-36.0 g/dL] 33.9 g/dL (11/02/23 AM) Sodium Level [136-145 mEq/L] 141 mEq/L (11/02/23 AM) UA Leuk Est [Negative] Negative (11/02/23 AM) Lymph Absolute [1.20-3.40 x10^3/mcL] 2.4 2 x10^3/mcL (11/02/23 12:27 AM) UA Nitrite [Negative] Negative (11/02/23 AM) UA Glucose [Negative] Negative (11/02/23 AM) Hct [36.0-46.0 %] 39.2 % (11/02/23: AM) Calcium Level [8.5-10.1 mg/dL] 8.6 mg/dL (11/02/23 12: AM) [place] Absolute [0.11-0.70 x10^3/mcL] 0.38 x10^3/mcL (11/02/23: AM) Albumin Level [3.4-5.0 g/dL] 3.7 g/dL (11/02/23 AM) Protein Total [6.4-8.2 g/dL] 6.9 g/dL (11/02/23: AM) UA Protein [Negative] Negative (11/02/23 AM) MCH [27.1-32.0 pg] 30.4 pg (11/02/23: AM) Neutro Absolute [1.20-6.70 x10^3/mcL] 3. 13 x10^3/mcL (11/02/23 12: AM) Bilirubin Total [0.2-1.2 mg/dL] 1.2 mg/d L (11/02/23: AM) Hgb [12.0-15.5 g/dL] 13.3 g/dL (11/02/23 12: AM) Alk Phos [55-142 unit/L] 58 unit/L (11/02/23 12: AM) UA Blood [Negative] Negative (11/02/23 12: AM) MPV [6.0-10.0 fL] 9.5 fL (11/02/23 12: AM) UA Spec Grav [1.015] 1.020 (11/02/23 12: AM) Platelets [150-400 x10^3/mcL] 222 x10^3/ mcL (11/02/23 12:27 AM) CO2 [21-31 mEq/L] 29 mEq/L (7/21/24 12:27 AM) Eos Absolute [0.00-0.70 x10^3/mcL] 0.12 x10^3/mcL (11/02/23 12:27 AM) UA pH [5.0] 7.5 *NA* (11/02/23 12:27 AM) eGFR Non-AA [>=60 mL/min/1.73 m2] 75 mL/ min/1.73 m2 (11/02/23 12:27 AM) eGFR AA [>=60 mL/min/1.73 m2] 91 mL/min/ 1.73 m2 (11/02/23 12:27 AM) UA Appear [Clear] Slightly Cloudy *ABN* (11/02/23: AM) Chloride Level [98-107 mEq/L] 105 mEq/L (11/02/23 12:27 AM) A/G Ratio 1.2 *NA* (11/02/23 12:27 AM) BUN/Creat Ratio 11 ratio *NA* (11/02/23 12: AM) Globulin 3.20 mg/dL *NA* (11/02/23 12:27 AM) Imm Gran Absolute [0.00-0.04 x10^3/mcL] 0.00 x10^3/mcL (11/02/23 12:27 AM) Imm Gran Auto 0.0 /100(WBCs) *NA* (11/02/23 12:27 AM) Creatinine Level [0.55-1.02 mg/dL] 0.93 mg/dL (11/02/23 12:27 AM) RDW-CV [11.6-14.8 %] 11.8 % (11/02/23 12:27 AM) Anion Gap [5-15 mEq/L] 10 mEq/L (11/02/23 12:27 AM) Eos, Auto [1.0-7.0 /100(WBCs)] 2.0 /100( WBCs) (11/02/23 12:27 AM) hCG Ur [Negative] Negative (11/02/23 12:27 AM) Radiology Reports * Exam Date Time Procedure Performing Provider Status 11/02/23 12:[address] Abdomen and Pelvi s w/o Contrast Savanna Poon; Auth (Verified) Notes: (CT Abdomen and Pelvis w/o Contrast) Reason For Exam: flank pain CT Abdomen and Pelvis w/o Contrast EXAMINATION: CT Abdomen and Pelvis w/o Contrast [...] Normal contours. Osseous structures: No suspicious lesions. IMPRESSION: No hydronephrosis or urolithiasis. Thank you for letting us participate in the care of this patient. If you are a health care provider and have any questions regarding this report, please contact the number below. For patients who have questions please contact the health career development coordinator/teacher that requested your imaging first. Electronically signed by: Hugh Jones MD, [facility] ([phone]), at 11/02/2023 12:52 AM Final Dictated by: Destiny Yeh Dictated DT/TM: 11/02/2023 0:57 am Signed by: Ruba, Generated Signed (Electronic Signature): 11/02/2023 0:38 am Transcribed by: GDU * Exam Date Time Procedure Performing Provider Status 11/02/23 12:34 AM XR Chest 1 View Savanna Poon; Auth (Verified) Notes: (XR Chest 1 View) Reason For Exam: chest pain XR Chest 1 View EXAMINATION: XR Chest 1 View CLINICAL HISTORY: chest pain TECHNIQUE: Single AP view of the chest COMPARISON: None FINDINGS: No confluent airspace opacity, pleural effusion, or pneumothorax definitively identified. Cardiomediastinal contours appear within normal limits. Surgical clips project over the right upper quadrant. IMPRESSION: No acute cardiopulmonary process seen. Preliminary report [...] have questions please contact the health career development coordinator/teacher that requested your imaging first. Electronically signed by: Esteban Sweeney MD, [facility] ([phone]), at 11/02/2023 12:52AM Final Dictated by: Ruba Generated Dictated DT/TM: 11/02/2023 0:57 am Signed by: Ruba, Generated Signed (Electronic Signature): 11/02/2023 0:22 am Transcribed by: COURT Vital Signs Most recent to oldest [Reference Range]: 1 2 Temperature Oral [35.8-37.3 Deg C] 37.0 Deg C (11/01/23 11:46 PM) Peripheral Pulse Rate [60-100 bpm] 72 bp m (11/02/23 12:43 AM) 72 bpm (11/01/23 11:46 PM) Respiratory Rate [12-24 br/min] 16 br/mi n (11/02/23 12:43 AM) 17 br/min (11/01/23 11:46 PM) Blood Pressure [90-140/60-90 mmHg] 113/6 4mmHg (11/02/23 12:43 AM) 106/72mmHg (11/01/23 11:46 PM) Weight Dosing 65.770 kg (11/01/23 11:46 PM) Body Mass Index 25.68 kg/m2 (11/01/23 11:46 PM) Height 160.02 cm (11/01/23 11:46 PM) Weight 65.77 kg (11/01/23 11:46 PM) Social History Social History Type Response Tobacco Never tobacco user T obacco Use:. Sex Hospital Discharge Instructions Patient Education 11/02/2023 00:17:30 Abdominal Pain, Adult Abdominal Pain, Adult Pain in the abdomen (abdominal pain) can be caused by many things. Often, abdominal pain is not serious and it gets better with no treatment or by being treated at home. However, sometimes abdominal pain is serious. Your health care provider will ask questions about your medical history and do a physical exam to try to determine the cause of your abdominal pain. Follow these instructions at home: Medicines ??? Take znqi-ktd-iyavqtd and prescription medicines only as told by your health care provider. ??? Do not take a laxative unless told by your health care provider. General instructions ??? Watch your condition for any changes. ??? Drink enough fluid to keep your urine pale yellow. ??? Keep all follow-up visits as told by your health care provider. This is important. Contact a health care provider if: ??? Your abdominal pain changes or gets worse. ??? You are not hungry or you lose weight without trying. ??? You are constipated or have diarrhea for more than 2???3 days. ??? You have pain when you urinate or have a bowel movement. ??? Your abdominal pain wakes you up at night. ??? Your pain gets worse with meals, after eating, or with certain foods. ??? You are vomiting and cannot keep anything down. ??? You have a fever. ??? You have blood in your urine. Get help right away if: ??? Your pain does not go away as soon as your health care provider told you to expect. ??? You cannot stop vomiting. ??? Your pain is only in areas of the abdomen, such as the right side or the left lower portion of the abdomen. Pain on the right side could be caused by appendicitis. ??? You have bloody or black stools, or stools that look like tar. ??? You have severe pain, cramping, or bloating in your abdomen. ??? You have signs of dehydration, such as: ??? Dark urine, very little urine, or no urine. ??? Cracked lips. ??? Dry mouth. ??? Sunken eyes. ??? Sleepiness. ??? Weakness. ??? You have trouble breathing or chest pain. Summary ??? Often, abdominal pain is not serious and it gets better with no treatment or by being treated at home. However, sometimes abdominal pain is serious. ??? Watch your condition for any changes. ??? Take dkhp-ijs-wlxgvcy and prescription medicines only as told by your health care provider. ??? Contact a health care provider if your abdominal pain changes or gets worse. ??? Get help right away if you have severe pain, cramping, or bloating in your abdomen. This information is not intended to replace advice given to you by your health care provider. Make sure you discuss any questions you have with your health care provider. Document Revised: 05/19/2020 Document Reviewed: 08/09/2019 [employer] Patient Education ?? 2022 [employer]. Follow Up Care 11/01/2023 23:33:24 With:Follow up with Primary Care Address:Unknown When:1 to 2 weeks Physician Emergency department Note * Ever Irwin MD: PERFORM Event Display: ED Note Physician Authored Date: [id number] JAG CASSIDY :2000 Age:23 years Sex:Female Visit Date:11/01/2023 Primary Care Physician: Tisha Huitron Basic Information ??No qualifying data available.?? Chief Complaint bibems 2 day Hx. Diarrhea-brght green, nausea, abdominal pain, chest pain and nausea. Onset while eating, now eating, drinking laying supine worsens sx. Tried OTC pain reliever didn't work (1300 today). Gallbladder & appendix removed History Of Present Illness: 23-year-old female??with right flank??and right lower quadrant abdominal pain. ??She also has associated diarrhea??and nausea. ??She also developed chest pain??but she thinks this is secondary to heranxiety??is only occurred when she was in the back of the ambulance on the way to the hospital.?? There is no history of fever or chills.?? Symptoms started while eating.?? She has had a her gallbladder and her appendix removed Review of Systems: Positive for right flank/right lower quadrant abdominal pain??and diarrhea negative for fevers chills or vomiting Physical Exam Vitals & Measurements T:??37.0?C ??(Oral)?? HR:??72??(Peripheral)?? RR:??16?? BP:??113/64?? SpO2:??99%?? HT:??160.02??cm?? WT:??65.77??kg?? BMI:??25.68?? Pain Score:??7?? O2 Therapy:??Room air?? General: Awake alert and oriented x3. ??No distress H EENT: PERRL, EOMI, mucous membranes are moist Neck: Full painless range of motion Cardiovascular: Regular rate and rhythm, normal S1-S2 Respiratory: Lungs are clear to auscultation bilaterally Abdomen:??Mild right flank tenderness, no guarding or rebound Musculoskeletal: Full range of motion of all extremities Neurological: Normal sensation and strength. ??No focal weakness. ??Normal gait. Skin: Warm and dry Psychiatric: Normal affect Medical Decision Making: ?? Labs: Reviewed/see chart ?? Radiology: Reviewed/see chart ?? Old medical records: ??old medical records pertinent to the current visit have been reviewed ?? ED course: ?? Medical decision making:??23-year-old female with right flank and right lower quadrant abdominal pain. ??Laboratory testing is unremarkable.?? CT scan is negative for any acute process.?? She likely has a viral??source for her diarrhea??and this is likely contributing to abdominal pain. ??No additional intervention is required tonight. ??She be discharged home to??use uxzw-rru-ipxrxlw medicationsas needed for management of??her symptoms and return for any concerns ?? Diagnosis:??1. ??Right flank pain 2.?? Acute diarrheal illness Procedure No Qualifying Data Assessment/Plan 1.??Abdominal pain??R10.9 Ordered: Discharge Patient, 11/02/23 1:17:00 EDT ?? Patient Education Abdominal Pain, Adult Follow Up With When Contact Information Follow up with Primary Care Within 1 to 2 weeks Additional Instructions: Problem List/Past Medical History Ongoing Abdominal pain Back pain Chest pain Historical No qualifying data Allergies tetanus/diphth/pertuss (Tdap) adult/adol Social History Alcohol Never Electronic Cigarette/Vaping Electronic Cigarette Use: Use, within last 90 days. Type: Nicotine infused. Use per Day: 1-25 Inhales/day. Substance Use Never Tobacco Never tobacco user Tobacco Use:. Diagnostic Results CT Abdomen and Pelvis w/o Contrast 11/02/2023 00:57 EDT XR Chest 1 View 11/02/2023 00:57 EDT XR Chest 1 View ?? 11/02/23 00:22:16 IMPRESSION: No acute cardiopulmonary process seen. ?? Preliminary report signed by: ?? Signed By: DomainUser, Generated ?? CT Abdomen and Pelvis w/o Contrast ?? 11/02/23 00:38:12 IMPRESSION: No hydronephrosis or urolithiasis. ?? Thank you for letting us participate in the care of this patient. If you are a health care provider and have any questions regarding this report, please contact the number below. For patients who have questions please contact the health career development coordinator/teacher that requested your imaging first. ?? Electronically signed by: ?? Signed By: DomainUser, Generated Lab Results CBC and Differential?? LATEST RESULTS?? WBC?? 11/02/23 00:27?? 6.08?? RBC?? 11/02/23 00:27?? 4.38?? Hgb?? 11/02/23 00:27?? 13.3?? Hct?? 11/02/23 00:27?? 39.2?? MCV?? 11/02/23 00:27?? 89.5?? MCH?? 11/02/23 00:27?? 30.4?? MCHC?? 11/02/23 00:27?? 33.9?? RDW-CV?? 11/02/23 00:27?? 11.8?? Platelets?? 11/02/23 00:27?? 222?? MPV?? 11/02/23 00:27?? 9.5?? Neutro Auto?? 11/02/23 00:27?? 51.4?? Lymph Auto?? 11/02/23 00:27?? 39.8?? [place] Auto?? 11/02/23 00:27?? 6.3?? Eos, Auto?? 11/02/23 00:27?? 2.0?? Basophil Auto?? 11/02/23 00:27?? 0.50?? Imm Gran Auto?? 11/02/23 00:27?? 0.0?? Neutro Absolute?? 11/02/23 00:27?? 3.13?? Lymph Absolute?? 11/02/23 00:27?? 2.42?? [place] Absolute?? 11/02/23 00:27?? 0.38?? Eos Absolute?? 11/02/23 00:27?? 0.12?? Baso Absolute?? 11/02/23 00:27?? 0.03?? Imm Gran Absolute?? 11/02/23 00:27?? 0.00? Routine Chemistry?? LATEST RESULTS?? Glucose Level?? 11/02/23 00:27?? 119 ??High?? BUN?? 11/02/23 00:27?? 10?? Creatinine Level?? 11/02/23 00:27?? 0.93?? eGFR AA?? 11/02/23 00:27?? 91?? eGFR Non-AA?? 11/02/23 00:27?? 75?? BUN/Creat Ratio?? 11/02/23 00:27?? 11?? Calcium Level?? 11/02/23 00:27?? 8.6?? CO2?? 11/02/23 00:27?? 29?? Chloride Level?? 11/02/23 00:27?? 105?? Sodium Level?? 11/02/23 00:27?? 141?? Potassium Level?? 11/02/23 00:27?? 3.3 ??Low?? Anion Gap?? 11/02/23 00:27?? 10?? Alk Phos?? 11/02/23 00:27?? 58?? AST?? 11/02/23 00:27?? 11 ??Low?? ALT?? 11/02/23 00:27?? 14?? Protein Total?? 11/02/23 00:27?? 6.9?? Albumin Level?? 11/02/23 00:27?? 3.7?? Bilirubin Total?? 11/02/23 00:27?? 1.2?? Globulin?? 11/02/23 00:27?? 3.20?? A/G Ratio?? 11/02/23 00:27?? 1.2? Testing?? LATEST RESULTS?? hCG Ur?? 11/02/23 00:27?? Negative? UA Macroscopic?? LATEST RESULTS?? UA Color?? 11/02/23 00:27?? Yellow?? UA Appear?? 11/02/23 00:27?? Slightly Cloudy Abnormal?? UA pH?? 11/02/23 00:27?? 7.5?? UA Spec Grav?? 11/02/23 00:27?? 1.020?? UA Glucose?? 11/02/23 00:27?? Negative?? UA Bili?? 11/02/23 00:27?? Negative?? UA Ketones?? 11/02/23 00:27?? 1+ Abnormal?? UA Blood?? 11/02/23 00:27?? Negative?? UA Protein?? 11/02/23 00:27?? Negative?? UA Urobilinogen?? 11/02/23 00:27?? 2.0 Abnormal?? UA Nitrite?? 11/02/23 00:27?? Negative?? UA Leuk Est?? 11/02/23 00:27?? Negative? Electronically Signed on 11/02/2023 01:20 EDT Ever Irwin MD Emergency department Discharge instructions * Ever Irwin MD: PERFORM Event Display: ED Discharge Information Authored Date: [id number] JAG CASSIDY :2000 Age:23 years Sex:Female Visit Date:11/01/2023 Primary Care Physician: Tisha Huitron Discharge Instructions We would like to thank you for allowing us to assist you with your healthcare needs. The following includes patient education materials and information regarding your injury/illness. Diagnosis from Today's Visit Abdominal pain Discharge Vitals Temperature??(Oral) 98.6 ??F (37.0 ??C) Heart Rate??(Peripheral) 72 Respiratory Rate?? 16 Blood Pressure?? 113/64?? SpO2?? 99% Height?? 63.00 in (160.02 cm) Weight?? 145.02 lb (65.77 kg) BMI?? 25.68 Allergies tetanus/diphth/pertuss (Tdap) adult/adol What to Do [...] doctor, contact the Emergency Department. Education Materials Abdominal Pain, Adult Pain in the abdomen (abdominal pain) can be caused by many things. Often, abdominal pain is not serious and it gets better with no treatment or by being treated at home. However, sometimes abdominal pain is serious. Your health care provider will ask questions about your medical history and do a physical exam to try to determine the cause of your abdominal pain. Follow these instructions at home: Medicines ? Take oeul-hsa-atrlmni and prescription medicines only as told by your health care provider. ? Do not take a laxative unless told by your health care provider. General instructions ? Watch your condition for any changes. ? Drink enough fluid to keep your urine pale yellow. ? Keep all follow-up visits as told by your health care provider. This is important. Contact a health care provider if: ? Your abdominal pain changes or gets worse. ? You are not hungry or you lose weight without trying. ? You are constipated or have diarrhea for more than 2???3 days. ? You have pain when you urinate or have a bowel movement. ? Your abdominal pain wakes you up at night. ? Your pain gets worse with meals, after eating, or with certain foods. ? You are vomiting and cannot keep anything down. ? You have a fever. ? You have blood in your urine. Get help right away if: ? Your pain does not go away as soon as your health care provider told you to expect. ? You cannot stop vomiting. ? Your pain is only in areas of the abdomen, such as the right side or the left lower portion of the abdomen. Pain on the right side could be caused by appendicitis. ? You have bloody or black stools, or stools that look like tar. ? You have severe pain, cramping, or bloating in your abdomen. ? You have signs of dehydration, such as: ? Dark urine, very little urine, or no urine. ? Cracked lips. ? Dry mouth. ? Sunken eyes. ? Sleepiness. ? Weakness. ? You have trouble breathing or chest pain. Summary ? Often, abdominal pain is not serious and it gets better with no treatment or by being treated at home. However, sometimes abdominal pain is serious. ? Watch your condition for any changes. ? Take ndrc-nmp-xdhdbjg and prescription medicines only as told by your health care provider. ? Contact a health care provider if your abdominal pain changes or gets worse. ? Get help right away if you have severe pain, cramping, or bloating in your abdomen. This information is not intended to replace advice given to you by your health care provider. Make sure you discuss any questions you have with your health care provider. Document Revised: 05/19/2020 Document Reviewed: 08/09/2019 [employer] Patient Education ?? 2022 [employer] Tests Performed Radiology CT Abdomen and Pelvis w/o Contrast 11/02/2023 00:57 EDT XR Chest 1 View 11/02/2023 00:57 EDT Lab Test Name Test Result Date/Time WBC 6.08 x10^3/mcL 11/02/2023 00:27 EDT RBC 4.38 x10^6/mcL 11/02/2023 00:27 EDT Hgb 13.3 g/dL 11/02/2023 00:27 EDT Hct 39.2 % 11/02/2023 00:27 EDT MCV 89.5 fL 11/02/2023 00:27 EDT MCH 30.4 pg 11/02/2023 00:27 EDT MCHC 33.9 g/dL 11/02/2023 00:27 EDT RDW-CV 11.8 % 11/02/2023 00:27 EDT Platelets 222 x10^3/mcL 11/02/2023 00:27 EDT MPV 9.5 fL 11/02/2023 00:27 EDT Neutro Auto 51.4 /100(WBCs) 11/02/2023 00:27 EDT Lymph Auto 39.8 /100(WBCs) 11/02/2023 00:27 EDT [place] Auto 6.3 /100(WBCs) 11/02/2023 00:27 EDT Eos, Auto 2.0 /100(WBCs) 11/02/2023 00:27 EDT Basophil Auto 0.50 /100(WBCs) 11/02/2023 00:27 EDT Imm Gran Auto 0.0 /100(WBCs) 11/02/2023 00:27 EDT Neutro Absolute 3.13 x10^3/mcL 11/02/2023 00:27 EDT Lymph Absolute 2.42 x10^3/mcL 11/02/2023 00:27 EDT [place] Absolute 0.38 x10^3/mcL 11/02/2023 00:27 EDT Eos Absolute 0.12 x10^3/mcL 11/02/2023 00:27 EDT Baso Absolute 0.03 x10^3/mcL 11/02/2023 00:27 EDT Imm Gran Absolute 0.00 x10^3/mcL 11/02/2023 00:27 EDT Glucose Level 119 mg/dL 11/02/2023 00:27 EDT BUN 10 mg/dL 11/02/2023 00:27 EDT Creatinine Level 0.93 mg/dL 11/02/2023 00:27 EDT eGFR AA 91 mL/min/1.73 m2 11/02/2023 00:27 EDT eGFR Non-AA 75 mL/min/1.73 m2 11/02/2023 00:27 EDT BUN/Creat Ratio 11 ratio 11/02/2023 00:27 EDT Calcium Level 8.6 mg/dL 11/02/2023 00:27 EDT CO2 29 mEq/L 11/02/2023 00:27 EDT Chloride Level 105 mEq/L 11/02/2023 00:27 EDT Sodium Level 141 mEq/L 11/02/2023 00:27 EDT Potassium Level 3.3 mEq/L 11/02/2023 00:27 EDT Anion Gap 10 mEq/L 11/02/2023 00:27 EDT Alk Phos 58 unit/L 11/02/2023 00:27 EDT AST 11 unit/L 11/02/2023 00:27 EDT ALT 14 unit/L 11/02/2023 00:27 EDT Protein Total 6.9 g/dL 11/02/2023 00:27 EDT Albumin Level 3.7 g/dL 11/02/2023 00:27 EDT Bilirubin Total 1.2 mg/dL 11/02/2023 00:27 EDT Globulin 3.20 mg/dL 11/02/2023 00:27 EDT A/G Ratio 1.2 11/02/2023 00:27 EDT hCG Ur Negative. 11/02/2023 00:27 EDT UA Color Yellow 11/02/2023 00:27 EDT UA Appear Slightly Cloudy 11/02/2023 00:27 EDT UA pH 7.5 11/02/2023 00:27 EDT UA Spec Grav 1.020 11/02/2023 00:27 EDT UA Glucose Negative. 11/02/2023 00:27 EDT UA Bili Negative. 11/02/2023 00:27 EDT UA Ketones 1+ 11/02/2023 00:27 EDT UA Blood Negative. 11/02/2023 00:27 EDT UA Protein Negative. 11/02/2023 00:27 EDT UA Urobilinogen 2.0 11/02/2023 00:27 EDT UA Nitrite Negative. 11/02/2023 00:27 EDT UA Leuk Est Negative. 11/02/2023 00:27 EDT Patient/Master Data Analyst Signature Patient Name:KHANH, JAG I have received this information and my questions have been answered. Patient/Master Data Analyst Name: Patient/Master Data Analyst Signature: Relationship to Patient: Witness Name/Signature: Date: Electronically Signed on 11/02/2023 01:18 EDT Ever Irwin MD Patient Care team information Care Team Personnel Name: Tisha Huitron Position: No Access Member Role: Primary Care Physician Address: Address: [address] [place] [address], [place] [id number]
--- OUTSIDE RECORDS SUMMARY | 2024-02-20 12:15 | XMS_ITS | Encounter Summary ---
Author Organization [facility] [place] [address] Care Team Providers Care Interlocking Pavement Installer Name Role Phone None Primary Care Provider Unavailabl e Reason for Visit * Auth/Cert (Routine) Specialty Diagnoses / Procedures Referred By Contac t Referred To Contact Diagnoses Bile duct stricture bile duct stricture-stent removal or exchange Procedures PRO ERCP,DIAGNOSTIC PRO ANESTH, UGI ENDOSCOPY ERCP ERCP (WRVU 5.85) Bijan Felipe MD [facility] [place] [address] [facility] Referral ID Status Reason Start Date Expiration Date Visits Re quested Visits Authorized [id number] 1 1 Encounter Details Date Type Department Care Team (Late st Contact Info) Description 12/18/2022 2:45 PM EDT - 12/18/2022 4:15 PM EDT [place] [address] Bijan Felipe MD [facility] [place] [address] ERCP, W BALLOON DILATION OF BILIARY/PANCREATIC DUCT [...] the day after the procedure, use an qvic-hrh-tnptmba spray to numb your throat. Sucking on [...] occurs, please contact your Doctor. Please call [phone] before 8pm Mon-Fri with problems, questions or concerns. If you call after 8pm or on weekends, call the Hospital at [phone] and ask to speak to the Business Services Manager satellite communications operator and the rotary screen printing machine operator will contact that person for you. When should you call for help? Call [phone] anytime you think you may need emergency [...] problems, like Where can you learn more? [facility] View your After Visit Summary and more online at [email or web address] If you would like to provide feedback about your hospital experience, please call the Office of Patient and Family Relations at . If you have received this After Visit Summary in error, please immediately return it in person to the department, or notify the [facility] Privacy Office by calling toll free at between the hours of 8AM and 5PM to arrange for our retrieval of the documents at no cost to you. Content Version: 12.2 ?? 7214-3250 [employer]. Care instructions adapted under license by [facility]. If you have questions about a medical condition or this instruction, always ask your healthcare professional. [employer] disclaims any warranty or liability for your [...] spacing device ([employer]) Spacer by [facility].(Non-Drug; Combo Route) route. As directed. May substitute [...] Dilatation Biliary/Pancreatic Duct Or Ampulla Ea Duct (71127) 12/18/2022 2:47 PM EDT Bile duct stricture ERCP Routine 12/18/2022 2:40 PM EDT documented in this encounter Results * XR ERCP (12/18/2022 3:28 PM EDT) Narrative [facility] - 12/18/2022 3:28 PM EDT See PACS for result report. Bijan Felipe MD IMG FILM LIBRARY ORD ERABLES [place], [place] * ERCP (12/18/2022 2:40 PM EDT) ERCP [facility] Endoscopy Procedure Date: 12/18/2022 2:40 PM ? Patient Name: Lawanda Mcdaniel ? Date of : 2000 ? Age: 22 ? Order #: [id number] ? Instrument Name: [id number] ? Procedure: ? ERCP Indications: ? Common [...] the ? physician, the nurse, the ? consulting business developer and the pump technician. The ? procedure was verified in [...] propofol under the ? supervision of a MERGERS AND ACQUISITIONS ASSOCIATE was ? determined to be medically ? [...] the procedure well. ? Findings: ? A game developer film of the abdomen was obtained. Surgical ? clips, consistent with a previous cholecystectomy, ? were seen in the area of the right upper quadrant of ? the abdomen. The previously placed plastic stents ? were not seen on game developer film. The esophagus was ? successfully intubated [...] RN) documented in this encounter Care Teams Interlocking Pavement Installer Relationship Specialty Start Date End Date None None PCP - General 02/21/22 documented as of this encounter
--- OUTSIDE RECORDS SUMMARY | 2024-02-20 12:15 | XMS_ITS | Encounter Summary ---
Author Organization [facility] [place] [address] Care Team Providers Care Guest Request Runner Name Role Phone None Primary Care Provider Unavailabl e Reason for Visit * Auth/Cert (Routine) Specialty Diagnoses / Procedures Referred By Contac t Referred To Contact Diagnoses Bile duct stricture bile duct stricture-stent removal or exchange Procedures PRO ERCP,DIAGNOSTIC PRO ANESTH, UGI ENDOSCOPY ERCP ERCP (WRVU 5.85) Bijan Felipe MD [facility] [place] [address] [facility] Referral ID Status Reason Start Date Expiration Date Visits Re quested Visits Authorized [id number] 1 1 Encounter Details Date Type Department Care Team (Latest Contact Info) Description 12/18/2022 12:57 PM EDT - 12/18/2022 4:58 PM EDT Hospital Encounter [place] [address] Bijan Felipe MD [facility] [place] [address] Biliary stricture (Primary Dx) Discharge Disposition: Home [...] the day after the procedure, use an bnyw-kkf-ywwjcof spray to numb your throat. Sucking on [...] occurs, please contact your Doctor. Please call [phone] before 8pm Mon-Fri with problems, questions or concerns. If you call after 8pm or on weekends, call the Hospital at [phone] and ask to speak to the Lock Expert manager economic and the production boring machine operator will contact that person for you. When should you call for help? Call [phone] anytime you think you may need emergency [...] problems, like Where can you learn more? [facility] View your After Visit Summary and more online at [email or web address] If you would like to provide feedback about your hospital experience, please call the Office of Patient and Family Relations at . If you have received this After Visit Summary in error, please immediately return it in person to the department, or notify the [facility] Privacy Office by calling toll free at between the hours of 8AM and 5PM to arrange for our retrieval of the documents at no cost to you. Content Version: 12.2 ?? 9744-1943 [employer]. Care instructions adapted under license by [facility]. If you have questions about a medical condition or this instruction, always ask your healthcare professional. [employer] disclaims any warranty or liability for your [...] Dilatation Biliary/Pancreatic Duct Or Ampulla Ea Duct (27680) 12/18/2022 2:47 PM EDT Bile duct stricture ERCP Routine 12/18/2022 2:40 PM EDT documented in this encounter Results * XR ERCP (12/18/2022 3:28 PM EDT) Narrative [facility] - 12/18/2022 3:28 PM EDT See PACS for result report. Bijan Felipe MD IMG FILM LIBRARY ORD ERABLES [facility] [place] * ERCP (12/18/2022 2:40 PM EDT) ERCP [facility] Endoscopy Procedure Date: 12/18/2022 2:40 PM ? Patient Name: Lawanda Mcdaniel ? Date of : 2000 ? Age: 22 ? Order #: [id number] ? Instrument Name: [id number] ? Procedure: ? ERCP Indications: ? 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 iatrogenic biliary injury during ? cholecystectomy Providers: ? iBjan Felipe MD, Andrew Damon ? Halle Tavares [...] the ? physician, the nurse, the ? medical technologist chemistry and the sleep technician. The ? procedure was verified in [...] propofol under the ? supervision of a EGG PROCESSING SUPERVISOR was ? determined to be medically ? [...] the procedure well. ? Findings: ? A resistor testing machine operator film of the abdomen was obtained. Surgical ? clips, consistent with a previous cholecystectomy, ? were seen in the area of the right upper quadrant of ? the abdomen. The previously placed plastic stents ? were not seen on resistor testing machine operator film. The esophagus was ? successfully intubated [...] RN) documented in this encounter Care Teams Guest Request Runner Relationship Specialty Start Date End Date None None PCP - General 02/21/22 documented as of this encounter
--- OUTSIDE RECORDS SUMMARY | 2024-02-20 12:15 | XMS_ITS | Encounter Summary ---
Author Organization [facility] [place] [address] Care Team Providers Care Superintendent Seed Mill Name Role Phone None Primary Care Provider Unavailabl e Encounter Details Date Type Department Care Team (Late st Contact Info) Description 12/18/2023 Interpretation Only [facility] in [facility] [address] [place] [address] [phone] Yoandy Sullivan MD [address] [place] [id number] Social History Tobacco Use Types Packs/Day Years [...] Name Priority Date/Time Associated Diagnosis Comments XR KNEE AP LAT AXIAL PATELLA LEFT STAT 12/18/2023 12:16 PM EDT documented in this encounter Results * XR Knee 3 Views Left (12/18/2023 12:16 PM EDT) PT CLASS E RAD ADMITDTTM [id number] [facility] PT [facility] INFO [id number]^NGOC ^YOANDY^J RAD EXAM DESC XKN3L^XR KNEE 3V LT^RIS [facility] WORKSTATION ID [id number] [facility] Anatomical Region Laterality Modality Knee Left Radiographic Bianca ging Impressions 12/18/2023 12:18 PM EDT 1. ??Normal radiographic appearance of the left knee. Thank you for letting us participate in the care of this patient. ??If you are a health care provider and have any questions regarding this report, please contact the number below. ??For patients who have questions please contact the health care companion that requested your imaging first. ? Narrative 12/18/2023 12:18 PM EDT EXAMINATION: XR KNEE 3V LT CLINICAL HISTORY: ??Reason for Extrem: ??Pain ??Add'l Info: (as entered by ordering provider in the order requisition) TECHNIQUE: AP, Agarwal, sunrise and lateral views of the left knee. ??Suboptimal lateral projection with the femoral condyles obliqued relative to to each other. COMPARISON: None FINDINGS: No focal soft tissue swelling. ??No joint effusion or lipohemarthrosis. No radiodense foreign body. ??No soft tissue gas. Normal alignment of the left knee. No acute fracture. Joint spaces are preserved. No osteophyte formation. No destructive bone lesion. No osseous erosion. Procedure Note Valeria Muniz MD - 12/18/2023 EXAMINATION: XR KNEE 3V LT CLINICAL HISTORY: Reason for Extrem: Pain Add'l Info: (as entered byordering provider in the order requisition) TECHNIQUE: AP, Agarwal, sunrise and lateral views of the left knee. Suboptimallateral projection with the femoral condyles obliqued relative to to each other. COMPARISON: None FINDINGS: No focal soft tissue swelling. No joint effusion or lipohemarthrosis. No radiodense foreign body. No soft tissue gas. Normal alignment of the left knee. No acute fracture. Joint spaces are preserved. No osteophyte formation. No destructive bone lesion. No osseous erosion. IMPRESSION 1. Normal radiographic appearance of the left knee. Thank you for letting us participate in the care of this patient. If youare a health care provider and have any questions regarding this report,please contact the number below. For patients who have questions please contactthe health care companion that requested your imaging first. Yoandy Sullivan MD IMG DX ORDERABLES documented in this encounter Visit Diagnoses Not on filedocumented in this encounter Care Teams Superintendent Seed Mill Relationship Specialty Start Date End Date None None PCP - General 02/21/22 documented as of this encounter
--- OUTSIDE RECORDS SUMMARY | 2024-02-20 12:15 | XMS_ITS | Encounter Summary ---
Author Organization [facility] [place] [address] Care Team Providers Care Wood Gang Sawyer Name Role Phone None Primary Care Provider Unavailabl e Encounter Details Date Type Department Care Team (Late st Contact Info) Description 11/27/2022 Telephone [place] [phone] Jp July Social History Tobacco Use Types [...] 11/27/2022 1:34 PM EDT Lawanda Lopes Jonas [id number] Diagnosis/Indication: STENT CHANGE/REMOVAL Please review patient chart [...] procedure? No You must have a responsible republican who will drive you to your procedure, stay on campus for the entire duration of your procedure, and drive you home from your procedure. Who will likely be your commercial truck driver for the procedure? Estimated body mass index is 26.04 kg/m?? as calculated from the following: Height as of 02/21/22: 160 cm (5' 3). Weight as of 06/10/22: 66.7 kg (147 lb). Age:22 y.o. documented in this encounter Plan of Treatment Not on file documented as of this encounter Visit Diagnoses Not on filedocumented in this encounter Care Teams Wood Gang Sawyer Relationship Specialty Start Date End Date None None PCP - General 02/21/22 documented as of this encounter
--- OUTSIDE RECORDS SUMMARY | 2024-02-20 12:15 | XMS_ITS ---
Author Organization Unknown Address [address] [place] [address] [phone] Phone Care Team Providers Care Informatics Nurse Name Role Phone TRACIEALEXUS NUNES Registered Nurse Unavailable [facility] Aly Attending Unavailable CHUCK Aly ER Unavailable UNLISTED PROVIDER - REQUESTED Xhandoff Un available Results XR KNEE 3V LT* - Completed: 12/18/2023 12:16 LOINC: [facility] RADIOLOGY [place], [place] [address] RADIOLOGY BATCH BLENDER REPORT Patient Name: JAG CASSIDY MRN: Sex: : Age: [birth year] F 2000 23 Account: Accession: Admit: StayType: [id number] 12/18/2023 E Ordered: Order ID: Submitted: Ordering Provider: 12/18/2023 11:59 [id number] TORRES LEE Completed: Technologist: Resulted: 12/18/2023 12:07 JUAN 12/18/2023 12:18 EXAMINATION: XR KNEE 3V LT CLINICAL HISTORY: Reason for Extrem: Pain Add'l Info: (as entered by ordering provider in the order requisition) TECHNIQUE: AP, Agarwal, sunrise and lateral views of the left knee. Suboptimal lateral projection with the femoral condyles obliqued relative to to each other. COMPARISON: None FINDINGS: No focal soft tissue swelling. No joint effusion or lipohemarthrosis. No radiodense foreign body. No soft tissue gas. Normal alignment of the left knee. No acute fracture. Joint spaces are preserved. No osteophyte formation. No destructive bone lesion. No osseous erosion. IMPRESSION: 1. Normal radiographic appearance of the left knee. Thank you for letting us participate in the care of this patient. If you are a health care provider and have any questions regarding this report, please contact the number below. For patients who have questions please contact the health rental boats caretaker that requested your imaging first. Social History Type Status Start Date End Date Code Code Syst em Smoking History Never smoker (Never Smoked) 078911870 SNOMED CT Sex Female Vital Signs Vital Sign Value Unit [place] Value [place] Unit Date/Time Recent/Initial? Code Code System Body Mass Index 25.69 kg/m2 12/18/2023 11:52 Initial 52527 -5 [facility] Systolic Blood Pressure 97 mm[Hg] 12/18/2023 11:52 Initial 8480- 6 LOINC Diastolic Blood Pressure 66 mm[Hg] 12/18/2023 11:52 Initial 8462- 4 LOINC Body Surface Area 1.71 m2 12/18/2023 11:52 Initial 3140- 1 LOINC Height 160.020 0 cm 63.00 in 12/18/2023 11:52 Initial 8302- 2 LOINC O2 Saturation 100 % 2023 11:52 Initial 36546 -5 LOINC Pulse 99.0 /min 12/18/2023 11:52 Initial 8867- 4 LOINC Respiration 15 /min 12/18/19 11:52 Initial 9279- 1 LOINC Temperature 36.8 Hortencia 98.2 F 12/18/19 11:52 Initial 8310- 5 LOINC Weight 65.77 kg 145.00 lbs 12/18/2023 11:52 Initial 53472 -7 [facility] Hospital Discharge Instructions Should you have any questions prior to discharge, please contact a member of your healthcare team. If you have left the hospital and have any questions, please contact your primary care physician. Reason For Referral No Data Found Problems Problem Start Date Resolved Date Status Code Code System DEPRESSION 12/18/2023 resolved 43943181 SNOMED-C T ASTHMA 12/18/2023 resolved 079879215 SNOMED-CT ANXIETY 12/18/2023 resolved 39041153 SNOMED-CT ADHD 12/18/2023 resolved 318459901 SNOMED-CT Allergies and Adverse Reactions Allergy Substance Reaction Severity Start Date Concern Status Co de Code System PERTUSSIS VACCINE Active 8080 RxNorm TETANUS TOXOID DERIVED PRODUCT Active 247046730 SNOMED-CT Plan of Treatment No Data Found Encounters Encounter Diagnosis Start Date Code Code Sys tem 12/18/2023 [id number] SNOMED-CT Personal Care Team Section Performer Name Performer Role Active Date Inactive Da te
--- OUTSIDE RECORDS SUMMARY | 2024-02-20 12:15 | XMS_ITS | Encounter Summary ---
[place] [address] Care Team Providers Care Toilet Products Molder Name Role Phone None Primary Care Provider Unavailabl e Reason for Visit * Auth/Cert (Routine) Specialty Diagnoses / Procedures Referred By Contac t Referred To Contact Diagnoses Bile duct stricture bile duct stricture-stent removal or exchange Procedures PRO ERCP,DIAGNOSTIC PRO ANESTH, UGI ENDOSCOPY ERCP ERCP (WRVU 5.85) Bijan Felipe MD [facility] [place] [address] [facility] Referral ID Status Reason Start Date Expiration Date Visits Re quested Visits Authorized [id number] 1 1 Encounter Details Date Type Department Care Team (Late st Contact Info) Description 12/18/2022 2:47 PM EDT Anesthesia [place] [address] Wm Berger MD [facility] [place] [address] Rosi Adkins Anesthesia Record Procedure Summary Procedure [...] 1428; metacarpal vein (top of hand), left; nryf-lzk-qqhgom catheter system; 20 gauge, 1 in length; [...] by Pedro Brown CRNA 12/18/22 1527 by Pedro Brown CRNA documented in this encounter Social [...] Procedure Summary Date: 12/18/22 Room / Location: [facility] ENDO 2 / [facility] ENDOSCOPY Anesthesia Start: 1447 Anesthesia Stop: 1533 Procedures: ERCP, W BALLOON DILATION OF BILIARY/PANCREATIC DUCT (WRVU 6.9) (Trunk) CHOLANGIOGRAM (Abdomen) Diagnosis: Bile duct stricture (bile duct stricture-stent removal or exchange) Surgeons: Bijan Felipe MD Responsible Provider: Wm Berger MD Anesthesia Type: general ASA Status: 2 All Anesthesia Providers: Anesthesiologist: Wm Berger MD SALES PORTER: Pedro Brown CRNA Student Nurse Wire Spring Relay Adjuster: Rosi Adkins Vitals Value Taken Time BP Temp Pulse Resp SpO2 Pain Level Patient Location: PACU/[facility] Level of Consciousness: Awake and Alert Pain [...] (WRVU 6.9) performed by Bijan Felipe MD [facility] ENDOSCOPY ? ? PRO ERCP BILIARY OR PANCREATIC DUCT STENT REMOVAL & EXCHANGE W/DIL&WIRE 02/21/2022 ERCP, W REMOVAL& EXCHANGE STENT, BILIARY/PANCREATIC DUCT performed by Bijan Felipe MD at [facility] ENDOSCOPY ? ? PRO ERCP BILIARY OR PANCREATIC DUCT STENT REMOVAL & EXCHANGE W/DIL&WIRE N/A 06/10/2022 ERCP, W REMOVAL& EXCHANGE STENT, BILIARY/PANCREATIC DUCT performed by Bijan Felipe MD at [facility] ENDOSCOPY ? ? PRO ERCP BILIARY OR PANCREATIC DUCT STENT REMOVAL & EXCHANGE W/DIL&WIRE N/A 09/05/2022 ERCP, W REMOVAL& EXCHANGE STENT, BILIARY/PANCREATIC DUCT (WRVU 8.84) performed by Bijan Felipe MD at [facility] ENDOSCOPY ??? PRO ERCP, SPHINCTEROTOMY N/A 02/21/2022 ERCP W/SPHINCTEROTOMY/PAPILLOTOMY performed by Bijan Felpie MD at [facility] ENDOSCOPY ??? PRO ERCP, W/REMOVAL STONE, NICKY/PANCR DUCTS 02/21/2022 ERCP W/REMOVAL CALCULI/DEBRIS FROM BILARY/PANCREATIC DUCT(S) performed by Bijan Felipe MD at [facility] ENDOSCOPY ??? PRO ERCP, W/REMOVAL STONE, NICKY/PANCR DUCTS 09/05/2022 ERCP W/REMOVAL CALCULI/DEBRIS FROM BILARY/PANCREATIC DUCT(S) (WRVU 6.63) performed by Bijan Felipe MD at [facility] ENDOSCOPY Social History Tobacco Use [...] risks discussed with patient. Plan discussed with SALES PORTER and attending. Anesthesia Screening documented in this [...] mg documented in this encounter Care Teams Toilet Products Molder Relationship Specialty Start Date End Date None None PCP - General 02/21/22 documented as of this encounter
--- OUTSIDE RECORDS SUMMARY | 2024-02-20 12:15 | XMS_ITS | Encounter Summary ---
[facility] [place] [address] Care Team Providers Care Filling Layer Up Name Role Phone None Primary Care Provider Unavailabl e Reason for Visit * Auth/Cert (Routine) Specialty Diagnoses / Procedures Referred By Contac t Referred To Contact Diagnoses Obstruction of bile duct stent exchange or removal-f/up bile duct injury Procedures PRO ERCP,DIAGNOSTIC ERCP (WRVU 5.85) Bijan Felipe MD [facility] [place] [address] [facility] Referral ID Status Reason Start Date Expiration Date Visits Re quested Visits Authorized [id number] 1 1 Encounter Details Date Type Department Care Team (Latest Contact Info) Description 09/05/2022 8:28 AM EDT - 09/05/2022 1:43 PM EDT Hospital Encounter [place] [address] Bijan Felipe MD [facility] [place] [place] [address] Bile duct stricture (Primary Dx) Discharge Disposition: [...] occurs, please contact your Doctor. Please call [phone] before 8pm Mon-Fri with problems, questions or concerns. If you call after 8pm or on weekends, call the Hospital at [phone] and ask to speak to the Electrician Marine centralized traffic control operator and the bullet swaging machine operator will contact that person for you. When should you call for help? Call [phone] anytime you think you may need emergency [...] After Visit Summary and more online at [email or web address] If you would like to provide feedback about your hospital experience, please call the Office of Patient and Family Relations at . If you have received this After Visit Summary in error, please immediately return it in person to the department, or notify the [facility] Privacy Office by calling toll free at between the hours of 8AM and 5PM to arrange for our retrieval of the documents at no cost to you. Content Version: 12.2 ?? 3559-9860 [employer] Care instructions adapted under license by [facility]. If you have questions about a medical condition or this instruction, always ask your healthcare professional. [employer] disclaims any warranty or liability for your [...] AM EDT Ercp, W/Removal Stone, Mono/Pancr Ducts (93828) 09/05/2022 10:21 AM EDT Bile duct stricture Ercp Balloon Dilatation Biliary/Pancreatic Duct Or Ampulla Ea Duct (51449) 09/05/2022 10:21 AM EDT Bile duct stricture CHOLANGIOGRAM 09/05/2022 10:21 AM EDT Bile duct stricture Ercp Biliary Or Pancreatic Duct Stent Removal & Exchange W/Dil&Wire(91784) 09/05/2022 10:21 AM EDT Bile duct stricture ERCP Routine 09/05/2022 9:50 AM EDT documented in this encounter Results * XR ERCP (09/05/2022 11:25 AM EDT) Narrative [facility] - 09/05/2022 11:25 AM EDT See PACS for result report. Bijan Felipe MD IMG FILM LIBRARY ORD ERABLES [facility] ER PR * ERCP (09/05/2022 9:50 AM EDT) ERCP [facility] Endoscopy Procedure Date: 09/05/2022 9:50 AM ? Patient Name: Lawanda Mcdaniel ? Date of : 2000 ? Age: 22 ? Order #: [id number] ? Instrument Name: [id number] ? Procedure: ? ERCP Indications: ? Follow-up of bile leak, Stent ? 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 Bijan Felipe MD, Anusha ? Devon Lowry Referring : ?Dayanna Peters MD, Andrade Mendenhall Medicines: ? General Anesthesia, Indomethacin ? 100 mg [place] Complications: ? No immediate complications. Procedure: ? [...] A biliary stent was visible on the agricultural extension specialist film. The ? esophagus was successfully intubated [...] CRNA)1113 (Anesthesia Volume Adjustment - Provider: Benitez Prutet CRNA) PRN Medication Order 09/03/2022 09/04/2022 09/05/2022 prochlorperazine (Compazine) (5 mg/mL) injection 5 mg (COMPLETED) 5 mg, Intravenous, EVERY 30 MIN PRN, 2 doses, Starting on Lashay 09/05/22 at 1220, Until Lashay 09/05/22 at 1308, Nausea, Vomiting, If multiple antiemetics ordered, use ondansetron first and if ineffective use prochlorperazine or haloperidoL second, PACU Recovery, Routine 1226 (Given - Provid er: Maria Leslie VALDEMAR)8878 (Given - Provider: Marai Leslie RN) documented in this encounter Care Teams Filling Layer Up Relationship Specialty Start Date End Date None None PCP - General 02/21/22 documented as of this encounter
--- OUTSIDE RECORDS SUMMARY | 2024-02-20 12:15 | XMS_ITS | Encounter Summary ---
[place] [address] Care Team Providers Care Arcade Technician Name Role Phone None Primary Care Provider Unavailabl e Reason for Visit * Auth/Cert (Routine) Specialty Diagnoses / Procedures Referred By Controsana t Referred To Contact Diagnoses Obstruction of bile duct stent exchange or removal-f/up bile duct injury Procedures PRO ERCP,DIAGNOSTIC ERCP (WRVU 5.85) Bijan Felipe MD [facility] [place] [address] [facility] Referral ID Status Reason Start Date Expiration Date Visits Re quested Visits Authorized [id number] 1 1 Encounter Details Date Type Department Care Team (Late st Contact Info) Description 09/05/2022 9:30 AM EDT Ancillary [place] [address] Social History Tobacco Use Types Packs/Day Years [...] Felipe MD IMG FILM LIBRARY ORD ERABLES [place], [place] documented in this encounter Visit Diagnoses Not on filedocumented in this encounter Care Teams Arcade Technician Relationship Specialty Start Date End Date None None PCP - General 02/21/22 documented as of this encounter
--- OUTSIDE RECORDS SUMMARY | 2024-02-20 12:15 | XMS_ITS | Encounter Summary ---
Author Organization [facility] [place] [address] Care Team Providers Care Restaurant Crew Name Role Phone None Primary Care Provider Unavailabl e Reason for Visit * Auth/Cert (Routine) Specialty Diagnoses / Procedures Referred By Contac t Referred To Contact Diagnoses Obstruction of bile duct stent exchange or removal-f/up bile duct injury Procedures PRO ERCP,DIAGNOSTIC ERCP (WRVU 5.85) Bijan Felipe MD [facility] [place] [address] [facility] Referral ID Status Reason Start Date Expiration Date Visits Re quested Visits Authorized [id number] 1 1 Encounter Details Date Type Department Care Team (Late st Contact Info) Description 09/05/2022 10:00 AM EDT - 09/05/2022 11:15 AM EDT Surgery [place] [address] Bijan Felipe MD [facility] [address] ERCP, W REMOVAL& EXCHANGE STENT, BILIARY/PANCREATIC DUCT [...] occurs, please contact your Doctor. Please call [phone] before 8pm Mon-Fri with problems, questions or concerns. If you call after 8pm or on weekends, call the Hospital at [phone] and ask to speak to the Store Keeper instructional resource teacher and the ordering machine operator will contact that person for you. When should you call for help? Call [phone] anytime you think you may need emergency [...] After Visit Summary and more online at [email or web address] If you would like to provide [...] cost to you. Content Version: 12.2 ?? 2955-8927 [employer]. Care instructions adapted under license by [facility]. If you have questions about a medical condition or this instruction, always ask your healthcare professional. [employer] disclaims any warranty or liability for your [...] AM EDT Ercp, W/Removal Stone, Mono/Pancr Ducts (72560) 09/05/2022 10:21 AM EDT Bile duct stricture Ercp Balloon Dilatation Biliary/Pancreatic Duct Or Ampulla Ea Duct (16595) 09/05/2022 10:21 AM EDT Bile duct stricture CHOLANGIOGRAM 09/05/2022 10:21 AM EDT Bile duct stricture Ercp Biliary Or Pancreatic Duct Stent Removal & Exchange W/Dil&Wire(87336) 09/05/2022 10:21 AM EDT Bile duct stricture ERCP Routine 09/05/2022 9:50 AM EDT documented in this encounter Results * XR ERCP (09/05/2022 11:25 AM EDT) Narrative [facility] - 09/05/2022 11:25 AM EDT See PACS for result report. Bijan Felipe MD [facility] FILM LIBRARY ORD ERABLES [place], [place] * ERCP (09/05/2022 9:50 AM EDT) ERCP [facility] Endoscopy Procedure Date: 09/05/2022 9:50 AM ? Patient Name: Lawanda Mcdaniel ? Date of : 2000 ? Age: 22 ? Order #: [id number] ? Instrument Name: [id number] ? Procedure: ? ERCP Indications: ? Follow-up of bile leak, Stent ? 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 Bijan Felipe MD, Anusha ? Devon Lowry Referring : ?Dayanna Peters MD, Andrade Mendenhall Medicines: ? General Anesthesia, Indomethacin ? 100 mg [place] Complications: ? No immediate complications. Procedure: ? [...] A biliary stent was visible on the crew truck driver film. The ? esophagus was successfully intubated [...] RN) documented in this encounter Care Teams Restaurant Crew Relationship Specialty Start Date End Date None None PCP - General 02/21/22 documented as of this encounter
--- OUTSIDE RECORDS SUMMARY | 2024-02-20 12:15 | XMS_ITS | Encounter Summary ---
Author Organization [facility] [place] [address] Care Team Providers Care Chief Digital Officer Name Role Phone None Primary Care Provider Unavailabl e Reason for Visit * Reason Comments Abdominal Pain Encounter Details Date Type Department Care Team (Late st Contact Info) Description 12/28/2022 1:13 AM EDT - 12/28/2022 3:08 AM EDT Emergency Emergency Services at [address] [address] Yair Bradford MD [facility] [place] [address] Generalized abdominal pain; Diarrhea, unspecified type; Nausea [...] be sent through Care Everywhere. * Diarrhea (Citizen Of [place]) * Abdominal Pain (Citizen Of [place]) documented in this encounter Medications at Time [...] spacing device ([employer]) Spacer by [facility].(Non-Drug; Combo Route) route. As directed. May substitute aerochamber. 2 each 1 02/02/2018 metoclopramide (Reglan) 10 mg tablet Take 1 tablet by mouth 4 times daily for 5 days. 20 tablet 12/28/2022 01/02/2023 documented as of this encounter ED Notes * Yair Bradford MD - 12/28/2022 1:34 AM EDT Images from the original note were not included. EMERGENCY SERVICES AT [facility] EMERGENCY DEPARTMENT ENCOUNTER Pt Name: Lawanda Mcdaniel [...] (WRVU 6.9) performed by Bijan Felipe MD [facility] ENDOSCOPY PRO ERCP BALLOON DILATATION BILIARY/PANCREATIC DUCT OR AMPULLA EA DUCT N/A 12/18/2022 ERCP, W BALLOON DILATION OF BILIARY/PANCREATIC DUCT (WRVU 6.9) performed by Bijan Felipe MD [facility] ENDOSCOPY PRO ERCP BILIARY OR PANCREATIC DUCT STENT REMOVAL & EXCHANGE W/DIL&WIRE 02/21/2022 ERCP, W REMOVAL& EXCHANGE STENT, BILIARY/PANCREATIC DUCT performed by Bijan Felipe MD at [facility] ENDOSCOPY PRO ERCP BILIARY OR PANCREATIC DUCT STENT REMOVAL & EXCHANGE W/DIL&WIRE N/A 06/10/2022 ERCP, W REMOVAL& EXCHANGE STENT, BILIARY/PANCREATIC DUCT performed by Bijan Felipe MD at [facility] ENDOSCOPY PRO ERCP BILIARY OR PANCREATIC DUCT STENT REMOVAL & EXCHANGE W/DIL&WIRE N/A 09/05/2022 ERCP, W REMOVAL& EXCHANGE STENT, BILIARY/PANCREATIC DUCT (WRVU 8.84) performed by Bijan Felipe MD at [facility] ENDOSCOPY PRO ERCP, SPHINCTEROTOMY N/A 02/21/2022 ERCP W/SPHINCTEROTOMY/PAPILLOTOMY performed by Bijan Felipe MD at [facility] ENDOSCOPY PRO ERCP, W/REMOVAL STONE, NICKY/PANCR DUCTS 02/21/2022 ERCP W/REMOVAL CALCULI/DEBRIS FROM BILARY/PANCREATIC DUCT(S) performed by Bijan Felipe MD at [facility] ENDOSCOPY PRO ERCP, W/REMOVAL STONE, NICKY/PANCR DUCTS 09/05/2022 ERCP W/REMOVAL CALCULI/DEBRIS FROM BILARY/PANCREATIC DUCT(S) (WRVU 6.63) performed by Bijan Felipe MD at [facility] ENDOSCOPY CURRENTMEDICATIONS Previous Medications ACYCLOVIR (ZOVIRAX) [...] external genitalia exam with nurse Toya as crystal gazer. Saw the string-like substance, which again appeared [...] in ED course) None I am the Superannuation Clerk of Record. FINAL IMPRESSION 1. Generalized abdominal pain 2. Diarrhea, unspecified type 3. Nausea without vomiting DISPOSITION/PLAN DISPOSITION Discharge 12/28/2022 02:46:40 AM If Discharged: PATIENT REFERRED TO: Emergency Services at [address] [facility] [address] Go to If symptoms worsen [...] 1:40 AM EDT) Neutrophil % 65.3 % [facility] Neutrophil Absolute 5.28 1.70 - 6.10 x10(3)/[facility] Lymph % 24.8 % [facility] Lymphocytes Abs 2.0 0.9 - 3.2 x10(3)/[facility] Monocyte % 7.2 % [facility] Monocyte Abs 0.6 0.3 - 0.9 x10(3)/[facility] Eos % 2.2 % [facility] Eosinophils Abs 0.2 0.0 - 0.4 x10(3)/[facility] Basophil % 0.4 % [facility] Baso Absolute 0.0 0.0 - 0.1 x10(3)/[facility] Immature Gran % 0.10 % [facility] Comment: Immature granulocytes(IG's)percentage and absolute count will include metamyelocytes, myelocytes, and promyelocytes. Blood smears from CBCs yielding IG's will be scanned manually for concordance. If this scan disagrees with the automated IG or if promyelocytes are noted, a manual differential will be performed. Immature Gran Absolute 0.01 0.00 - 0.04 x10(3)/[facility] Blood 12/28/2022 1:40 AM EDT 12/28/2022 1:58 AM EDT Narrative Resulting Agency Comment Spec In Lab Yair Bradford MD HEMATOLOGY ORDERABLE S [facility] [address] [place] [address] * Hemogram (12/28/2022 1:40 AM EDT) Pathologist [facility] White Blood Cell 8.1 4.0 - 9.5 x10(3)/[facility] Red Blood Cell 4.39 4.00 - 5.21 x10(6)/[facility] Hemoglobin 13.4 11.7 - 15.5 g/dL [facility] Hematocrit 39.3 35.7 - 45.8 % [facility] Mean Cell Volume 89.5 82.6 - 94.4 fL [facility] Mean Cell Hemoglobin 30.5 27.1 - 32.0 pg [facility] Mean Cell Hemoglobin Concentration 34.1 31.7 - 35.0 g/dL [facility] Platelet 205 145 - 357 x10(3)/[facility] RDW Standard Deviation 39.8 37.0 - 46.0 fL [facility] RDW coefficient of variation 12.1 11.5 - 14.1 % [facility] Mean Platelet Volume 9.6 7.6 - 12.9 fL [facility] Blood 12/28/2022 1:40 AM EDT 12/28/2022 1:58 AM EDT Narrative Resulting Agency Comment Spec In Lab Yair Bradford MD HEMATOLOGY ORDERABLE S Performing Organization Address [facility] Co de Phone Number [facility] [address] [place] [address] * Hepatic Function Panel (12/28/2022 1:40 AM EDT) Pathologist [facility] Protein, Total 6.4 6.1 - 8.0 g/dL [facility] Albumin 4.1 3.2 - 5.2 g/dL [facility] Aspartate Aminotransferase 11 0 - 30 unit/L [facility] Alanine Aminotransferase 9 0 - 30 unit/L [facility] Alkaline Phosphatase 65 35 - 105 unit/L [facility] Bilirubin, Total 0.6 0.2 - 1.3 mg/dL [facility] Bilirubin, Direct <0.2 0.0 - 0.3 mg/dL [facility] Blood 12/28/2022 1:40 AM EDT 12/28/2022 1:58 AM EDT Narrative Resulting Agency Comment Spec In Lab Yair Bradford MD CHEMISTRY ORDERABLES Performing Organization Address [facility] Co de Phone Number [facility] [address] [place] [address] * Lipase (12/28/2022 1:40 AM EDT) Lipase 26 0 - 60 unit/L [facility] Blood 12/28/2022 1:40 AM EDT 12/28/2022 1:58 AM EDT Narrative Resulting Agency Comment Spec In Lab Yair Bradford MD CHEMISTRY ORDERABLES Performing Organization Address [facility] Phone Number [facility] [address] [place] [address] * Basic Metabolic Panel (non-fasting) (12/28/2022 1:40 AM EDT) Glucose 108 65 - 199 mg/dL [facility] Comment:Diabetes: >=200 mg/d L plus symptoms Blood Urea Nitrogen 14 8 - 18 mg/dL [facility] Creatinine 0.76 0.70 - 1.20 mg/dL [facility] Sodium 138 135 - 145 mmol/L [facility] Potassium 3.6 3.5 - 5.0 mmol/L [facility] Comment: Please note: ??Patients with [...] In Lab Yair Bradford MD CHEMISTRY ORDERABLES [facility] [address] [place] [address] documented in this encounter Visit Diagnoses Diagnosis [...] RN) documented in this encounter Care Teams Chief Digital Officer Relationship Specialty Start Date End Date None None PCP - General 02/21/22 documented as of this encounter
--- OUTSIDE RECORDS SUMMARY | 2024-02-20 12:15 | XMS_ITS | Encounter Summary ---
Author Organization [facility] Address [facility] [place] [address] Care Team Providers Care Deep Well Contractor Name Role Phone None Primary Care Provider Unavailabl e Encounter Details Date Type Department Care Team (Late st Contact Info) Description 11/24/2022 Telephone [place] [address] Aarti Carter MD [facility] [place] [address] Social History Tobacco Use Types Packs/Day Years [...] number that should be contacted for appointments: [phone] Aarti Carter MD PGY-4, Gastroenterology Fellow documented in this encounter Plan of Treatment Not on file documented as of this encounter Visit Diagnoses Not on filedocumented in this encounter Care Teams Deep Well Contractor Relationship Specialty Start Date End Date None None PCP - General 02/21/22 documented as of this encounter
--- OUTSIDE RECORDS SUMMARY | 2024-02-20 12:15 | XMS_ITS | Encounter Summary ---
Author Organization [facility] [place] [address] Care Team Providers Care Hospital Attendant Name Role Phone None Primary Care Provider Unavailabl e Encounter Details Date Type Department Care Team (Late st Contact Info) Description 11/02/2023 Interpretation Only [address] [address] Ever Irwin MD [address] [place] [address] Social History Tobacco Use Types Packs/Day Years [...] (11/02/2023 12:38 AM EDT) PT CLASS E [facility] ADMITDTTM [id number] [facility] PT RAD INFO [phone]^Findle y^Christopher^Xiomy d [facility] EXAM DESC CTAPWO^CT Abdomen and Pelvis w/o Contrast^RIS [facility] WORKSTATION ID [id number] [facility] Anatomical Region Laterality Modality Abdomen, Pelvis Computed Tomogra phy 11/02/2023 12:3 8 AM EDT Impressions 11/02/2023 12:52 AM EDT No hydronephrosis or urolithiasis. Thank you for letting us participate in the care of this patient. ??If you are a health care provider and have any questions regarding this report, please contact the number below. ??For patients who have questions please contact the health college and career counselor that requested your imaging first. ? Narrative [...] patients who have questions please contactthe health college and career counselor that requested your imaging first. Ever Irwin MD IMG CT ORDERABL ES documented in this encounter Visit Diagnoses Not on filedocumented in this encounter Care Teams Hospital Attendant Relationship Specialty Start Date End Date None None PCP - General 02/21/22 documented as of this encounter
--- OUTSIDE RECORDS SUMMARY | 2024-02-20 12:15 | XMS_ITS | Clinical Summary ---
Author Organization [facility] [place] [address] Care Team Providers Care Clinical Information Systems Director Name Role Phone None Primary Care Provider [...] spacing device ([employer]) Spacer by [facility].(Non-Drug; Combo Route) route. [...] allergy clinic if any symptoms occur. 1. 04/29 teaspoon 2. 1/8 teaspoon 3. 1/4 teaspoon 4. 1/2 teaspoon 5. 1 teaspoon 6. 2 teaspoon 7. 1 tablespoon 8. 1 ounce and continue to gradually advance to full serving size as tolerated Allergy to environmental factors 02/02/2018 Assessment & Plan (02/02/2018 10:55 AM EDT): Reviewed avoidance of dust mites, dog, tree pollen, weed, and mold Encounters Date Type Department Care Team Description 12/18/2023 Interpretation Only [facility] in [address] [address] Yoandy Sullivan MD from Last 3 Months Family History [...] Hepatitis B vaccine (0-59 yrs) (1) 08/15/2019 Tetanus/Diphtheria/Pertussis Vaccines (1 - Tdap) 08/14 PAP Smear 2021 Covid-19 Vaccine (1 - 2022-24 season) 2023 Influenza (Flu) vaccine (1 o f 1 - Influenza standard series) 12/14/2023 Medical Devices Implanted Type Area Planishing Hammer Operator Device Identifier Shelf Expiration Date Model / Serial / Lot Stent Advanix [id number] Rx Plastic Duodenal Bend ([id number]) - [id number] Implanted:Qty: 1 on 06/10/2022 by Bijan Felipe MD at [facility] IMPLANTS N/A: Bile Duct [employer] 01/28/2024 [id number] / / [id number] Stent Advanix [id number] Rx Plastic Duodenal Bend ([id number]) - [id number] Implanted:Qty: 1 on 09/05/2022 by Bijan Felipe MD at [facility] IMPLANTS N/A: Bile Duct [employer] 07/22/2024 [id number] / / [id number] Stent Advanix [id number] Rx Plastic Duodenal Bend ([id number]) - [id number] Implanted:Qty: 1 on 09/05/2022 by Bijan Felipe MD at [facility] IMPLANTS N/A: Bile Duct [employer] 06/25/2024 [id number] / / [id number] Explanted Type Area Planishing Hammer Operator Device Identifier Shelf Expiration Date Model / Serial / Lot Stent Advanix [id number] Rx Plastic Duodenal Bend ([id number]) - [id number] Implanted:Qty: 1 on 02/21/2022 by Bijan Felipe MD at [facility] Explanted:Qty: 1 on 09/05/2022 by Bijan Felipe MD at [facility] IMPLANTS Bile Duct [employer] [id number] / / Stent Advanix [id number] Rx Plastic Duodenal Bend ([id number]) - [id number] Implanted:Qty: 1 on 06/10/2022 by Bijan Felipe MD at [facility] Explanted:Qty: 1 on 09/05/2022 by Bijan Felipe MD at [facility] IMPLANTS N/A: Bile Duct [employer] 05/14/2023 [id number] / / [id number] Procedures Procedure Name Priority Date/Time Associated Diagnosis Comments XR KNEE AP LAT AXIAL PATELLA LEFT STAT 12/18/2023 12:16 PM EDT from Last 3 Months Results * XR Knee 3 Views Left (12/18/2023 12:16 PM EDT) PT CLASS E RAD ADMITDTTM [id number] RAD PT RAD INFO [id number]^NGOC ^YOANDY^J RAD EXAM DESC XKN3L^XR KNEE 3V LT^RIS RAD WORKSTATION ID [id number] RAD Anatomical Region Laterality Modality Knee Left Radiographic Bianca ging Impressions 12/18/2023 12:18 PM EDT 1. ??Normal radiographic appearance of the left knee. Thank you for letting us participate in the care of this patient. ??If you are a health care provider and have any questions regarding this report, please contact the number below. ??For patients who have questions please contact the health acute care surgeon that requested your imaging first. ? Electronically signed by: Valeria Muniz MD, [facility] ([phone]), at 12/18/2023 12:18 PM Narrative 12/18/2023 12:18 PM EDT EXAMINATION: XR [...] patients who have questions please contactthe health acute care surgeon that requested your imaging first. Yoandy Sullivan MD IMG DX ORDERABLES from Last 3 Months Care Teams Clinical Information Systems Director Relationship Specialty Start Date End Date None None PCP - General 02/21/22
--- OUTSIDE RECORDS SUMMARY | 2024-02-20 12:15 | XMS_ITS | Encounter Summary ---
Author Organization [facility] [place] [address] Care Team Providers Care Customer Field Representative Name Role Phone None Primary Care Provider Unavailabl e Encounter Details Date Type Department Care Team (Late st Contact Info) Description 11/02/2023 Interpretation Only [address] [phone] Ever Irwin MD [address] [place] [address] Social History Tobacco Use Types Packs/Day Years [...] AM EDT) PT CLASS E RAD ADMITDTTM [id number] RAD PT RAD INFO [id number]^Findvenkatesh y^Ever^Xiomy d RAD EXAM DESC XCXR1^XR Chest 1 View^RIS [facility] WORKSTATION ID [id number] [facility] Anatomical Region Laterality Modality Chest N/A Radiographic [...] who have questions please contact the health administrator health care facility that requested your imaging first. ? Narrative [...] patients who have questions please contactthe health administrator health care facility that requested your imaging first. Ever Irwin MD IMG DX ORDERABL ES documented in this encounter Visit Diagnoses Not on filedocumented in this encounter Care Teams Customer Field Representative Relationship Specialty Start Date End Date None None PCP - General 02/21/22 documented as of this encounter
--- OUTSIDE RECORDS SUMMARY | 2024-02-20 12:15 | XMS_ITS | Encounter Summary ---
[facility] [place] [address] Care Team Providers Care Certified Dental Assistant Name Role Phone None Primary Care Provider Unavailabl e Encounter Details Date Type Department Care Team (Late st Contact Info) Description 10/30/2023 Interpretation Only [address] [phone] Ever Irwin MD [address] [place] [address] Social History Tobacco Use Types Packs/Day Years [...] PM EDT) PT CLASS E RAD ADMITDTTM [id number] RAD PT RAD INFO [id number]^Findle y^Junoer^Xiomy d RAD EXAM DESC XRHNDMTVR^XR Hand Complete 3+ Views Right^RIS [facility] WORKSTATION ID [id number] [facility] Anatomical Region Laterality Modality Hand Right Radiographic Bianca ging 10/30/2023 12:4 4 PM EDT Impressions 10/30/2023 1:09 PM EDT No acute fracture. Thank you for letting us participate in the care of this patient. ??If you are a health care provider and have any questions regarding this report, please contact the number below. ??For patients who have questions please contact the health urgent care technician that requested your imaging first. ? Narrative [...] patients who have questions please contactthe health urgent care technician that requested your imaging first. Ever Irwin MD IMG DX ORDERABL ES documented in this encounter Visit Diagnoses Not on filedocumented in this encounter Care Teams Certified Dental Assistant Relationship Specialty Start Date End Date None None PCP - General 02/21/22 documented as of this encounter
--- OUTSIDE RECORDS SUMMARY | 2024-02-20 12:15 | XMS_ITS | Encounter Summary ---
Author Organization [facility] [place] [address] Care Team Providers Care Rum Processing Operator Name Role Phone None Primary Care Provider Unavailabl e Encounter Details Date Type Department Care Team (Late st Contact Info) Description 06/12/2022 Telephone [place] [phone] Raven Paula, RN Social History Tobacco Use [...] on filedocumented in this encounter Care Teams Rum Processing Operator Relationship Specialty Start Date End Date None None PCP - General 02/21/22 documented as of this encounter
--- OUTSIDE RECORDS SUMMARY | 2024-02-20 12:15 | XMS_ITS | Encounter Summary ---
Author Organization [facility] [place] [address] Care Team Providers Care Engineer System Administrator Name Role Phone None Primary Care Provider [...] on filedocumented in this encounter Care Teams Engineer System Administrator Relationship Specialty Start Date End Date None None PCP - General 02/21/22 documented as of this encounter
--- OUTSIDE RECORDS SUMMARY | 2024-02-20 12:15 | XMS_ITS | Encounter Summary ---
[place] [address] Care Team Providers Care Drill Operator Pneumatic Name Role Phone None Primary Care Provider Unavailabl e Reason for Visit * Auth/Cert (Routine) Specialty Diagnoses / Procedures Referred By Contac t Referred To Contact Diagnoses Obstruction of bile duct stent exchange or removal-f/up bile duct injury Procedures PRO ERCP,DIAGNOSTIC ERCP (WRVU 5.85) Bijan Felipe MD [facility] [place] [address] [facility] Referral ID Status Reason Start Date Expiration Date Visits Re quested Visits Authorized [id number] 1 1 Encounter Details Date Type Department Care Team (Late st Contact Info) Description 09/05/2022 10:18 AM EDT Anesthesia [place] [address] Darrell Hernández MD [facility] [place] [address] Anesthesia Record Procedure Summary Procedure Name Responsible [...] 09; median vein (underside of arm), left; vret-bat-zjbwls catheter system; 22 gauge; Marisol Cruz RN; [...] Pruett CRNA 09/05/22 1125 by Benitez Pruett ELIGIBILITY TECHNICIAN documented in this encounter Social History Tobacco [...] Procedure Summary Date: 09/05/22 Room / Location: [facility] ENDO 2 / [facility] ENDOSCOPY Anesthesia Start: 1018 Anesthesia Stop: 1146 [...] All Anesthesia Providers: Anesthesiologist: Darrell Hernández MD ELIGIBILITY TECHNICIAN: Benitez Pruett CRNA Vitals Value Taken Time BP 120/78 09/05/22 1202 Temp Pulse Resp SpO2 100 % 09/05/22 1205 Pain Level 0 09/05/22 1150 Vitals shown include unvalidated device data. Patient Location: PACU/[facility] Level of Consciousness: Conscious but Sleepy [...] DUCT performed by Bijan Felipe MD at [facility] ENDOSCOPY ? ? PRO ERCP BILIARY OR PANCREATIC DUCT STENT REMOVAL & EXCHANGE W/DIL&WIRE N/A 06/10/2022 ERCP, W REMOVAL& EXCHANGE STENT, BILIARY/PANCREATIC DUCT performed by Bijan Felipe MD at [facility] ENDOSCOPY ??? PRO ERCP, SPHINCTEROTOMY N/A 02/21/2022 ERCP W/SPHINCTEROTOMY/PAPILLOTOMY performed by Bijan Felipe MD at [facility] ENDOSCOPY ??? PRO ERCP, W/REMOVAL STONE, NICKY/PANCR DUCTS 02/21/2022 ERCP W/REMOVAL CALCULI/DEBRIS FROM BILARY/PANCREATIC DUCT(S) performed by Bijan Felipe MD at [facility] ENDOSCOPY Social History Tobacco Use ??? Smoking [...] risks discussed with patient. Plan discussed with ELIGIBILITY TECHNICIAN. Anesthesia Screening documented in this encounter Plan [...] mg documented in this encounter Care Teams Drill Operator Pneumatic Relationship Specialty Start Date End Date None None PCP - General 02/21/22 documented as of this encounter
--- OUTSIDE RECORDS SUMMARY | 2024-02-20 12:15 | XMS_ITS | Encounter Summary ---
Author Organization [facility] [place] [address] Care Team Providers Care Inside Sales Account Representative Name Role Phone None Primary Care Provider Unavailabl e Reason for Visit * Auth/Cert (Routine) Specialty Diagnoses / Procedures Referred By Contac t Referred To Contact Diagnoses Bile duct stricture bile duct stricture-stent removal or exchange Procedures PRO ERCP,DIAGNOSTIC PRO ANESTH, UGI ENDOSCOPY ERCP ERCP (WRVU 5.85) Bijan Felipe MD [facility] [place] [address] [facility] Referral ID Status Reason Start Date Expiration Date Visits Re quested Visits Authorized [id number] 1 1 Encounter Details Date Type Department Care Team (Late st Contact Info) Description 12/18/2022 2:45 PM EDT Ancillary [place] [phone] Social History Tobacco Use Types Packs/Day Years [...] Felipe MD IMG FILM LIBRARY ORD ERABLES [place], [place] documented in this encounter Visit Diagnoses Not on filedocumented in this encounter Care Teams Inside Sales Account Representative Relationship Specialty Start Date End Date None None PCP - General 02/21/22 documented as of this encounter
--- OUTSIDE RECORDS SUMMARY | 2024-02-20 12:16 | XMS_ITS | Encounter Summary ---
Author [facility] [place] [address] Care Team Providers Care Outcomes Analyst Name Role Phone None Primary Care Provider Unavailabl e Reason for Visit * Auth/Cert (Routine) Specialty Diagnoses / Procedures Referred By Controsana t Referred To Contact Diagnoses stent maintainence Procedures PRO ERCP,DIAGNOSTIC ERCP Bijan Felipe MD [facility] [address] [facility] Referral ID Status Reason Start Date Expiration Date Visits Re quested Visits Authorized [id number] 1 1 Encounter Details Date Type Department Care Team (Latest Contact Info) Description 06/10/2022 2:36 PM EST - 06/10/2022 6:55 PM EST Hospital Encounter [place] [address] Bijan Felipe MD [facility] [address] Bile duct stricture (Primary Dx) Discharge Disposition: [...] the day after the procedure, use an ldzr-vcu-ocloief spray to numb your throat. Sucking on [...] occurs, please contact your Doctor. Please call [phone] before 8pm Mon-Fri with problems, questions or concerns. If you call after 8pm or on weekends, call the Hospital at [phone] and ask to speak to the Spring Fitter marketing communications leader and the welding machine operator resistance will contact that person for you. When should you call for help? Call 999 anytime you think you may need emergency [...] problems, like Where can you learn more? [facility]- View your After Visit Summary and more online at [email or web address] If you would like to provide feedback [...] cost to you. Content Version: 12.2 ?? 4225-6533 [employer]. Care instructions adapted under license by [facility]. If you have questions about a medical condition or this instruction, always ask your healthcare professional. [employer] disclaims any warranty or liability for your [...] Felipe MD - 06/10/2022 5:12 PM EST [place] Operative Note Patient Name: Lawanda Mcdaniel : [id number] MR#: [id number] Case Date: 06/10/2022 Surgeon: Surgeon(s) and Role: * Bijan Felipe MD - Primary Preoperative diagnosis: stent maintainence Postoperative diagnosis: * No post-op diagnosis entered * Procedure(s) (LRB): ERCP, W REMOVAL& EXCHANGE STENT, BILIARY/PANCREATIC DUCT (N/A) CHOLANGIOGRAM Anesthesia: General Full procedure note is documented under the Procedure section of [facility]. documented in this encounter Plan of [...] Or Pancreatic Duct Stent Removal & Exchange W/Dil&Wire([id number]) 06/10/2022 4:56 PM EST stent maintainence ERCP Routine 06/10/2022 4:50 PM EST documented in this encounter Results * XR ERCP (06/10/2022 5:38 PM EST) Narrative [facility] - 06/10/2022 5:39 PM EST See PACS for result report. Bijan Felipe MD IMG FILM LIBRARY ORD ERABLES FRED Montanez * ERCP (06/10/2022 4:50 PM EST) ERCP [facility] Endoscopy Procedure Date: 06/10/2022 4:50 PM ? Patient Name: Lawanda Mcdaniel ? Date of : 2000 ? Age: 21 ? Order #: [id number] ? Instrument Name: [id number] ? Procedure: ? ERCP Indications: ? Follow-up of bile leak, Stent change Providers: ? Bijan Felipe MD, Stephan Figueroa ? , RN, Nova Guaman, ? Veneer Jointer Helper Referring MD: ?Dayanna Peters MD, Andrade Mendenhall [...] A biliary stent was visible on the editorial intern film ? adjacent to surgical clips. The [...] a single internal flap were placed ? pvpb-ze-ezal into the common bile duct across the [...] dilated to 6 mm ? followed by pnxq-bz-cbhr 10 Fr ? stent placement across the [...] RN) documented in this encounter Care Teams Outcomes Analyst Relationship Specialty Start Date End Date None None PCP - General 02/21/22 documented as of this encounter
--- OUTSIDE RECORDS SUMMARY | 2024-02-20 12:16 | XMS_ITS | Encounter Summary ---
[place] [address] Care Team Providers Care Director Of Counterintelligence Name Role Phone None Primary Care Provider Unavailabl e Reason for Visit * Auth/Cert Specialty Diagnoses / Procedures Referred By Conner t Referred To Contact Diagnoses Injury of bile duct bile duct injury back and forth Procedures PRO ERCP,DIAGNOSTIC PRO UPPER GI ENDOSCOPY, REMOV F.B. PRO ANESTH, UGI ENDOSCOPY ERCP PRO ANESTH, COMBINED UPPER OR LOWER ENDOSCOPY ERCP Bijan Felipe MD [facility] [place] [address] [facility] Referral ID Status Reason Start Date Expiration Date Visits Re quested Visits Authorized [id number] 1 1 Encounter Details Date Type Department Care Team (Late st Contact Info) Description 02/21/2022 1:30 PM EST Anesthesia Event [place] [address] Nicolette Black MD [facility] [place] [address] Anesthesia Record Procedure Summary Procedure Name Responsible [...] hospital); median cubital vein (antecubital fossa), right; xlcl-rcz-rdmcla catheter system; 18 gauge; (outside hospital); 06/10/22; 184702/18/22 0900 by Nehal Abbott, VALDEMAR 06/10/221847 by Kimmie Powers, RN (RETIRED) Peripheral IV Line - Single Lumen 02/20/22 (placed at outside hospital); 899 (placed at outside hospital); cephalic vein (lateral side of arm), left; ysvl-ius-xslczf catheter system; Anatomical Landmarks; 22 gauge; 06/10/22; [...] Procedure Summary Date: 02/21/22 Room / Location: [facility] ENDO 2 / [facility]COPY Anesthesia Start: 1330 Anesthesia Stop: 1448 Procedures: ERCP W/SPHINCTEROTOMY/PAPILLOTOMY (N/A Trunk) ERCP, W REMOVAL& EXCHANGE STENT, BILIARY/PANCREATIC DUCT ERCP W/REMOVAL CALCULI/DEBRIS FROM BILARY/PANCREATIC DUCT(S) Diagnosis: (bile duct injury) (back and forth) Surgeons: Bijan Felipe MD Responsible Provider: Nicolette Black MD Anesthesia Type: general ASA Status: 2 All Anesthesia Providers: Anesthesiologist: Nicolette Black MD BOX TOE BUFFER: Julienne Hernandez CRNA Vitals Value Taken Time BP 111/79 02/21/22 1520 Temp Pulse Resp SpO2 98 % 02/21/22 1520 Pain Level 2 02/21/22 1512 Patient Location: PACU/[facility] Level of Consciousness: Awake and Alert [...] risks discussed with patient. Plan discussed with BOX TOE BUFFER and attending. Anesthesia Screening documented in this [...] documented in this encounter Care Teams Director Of Counterintelligence Relationship Specialty Start Date End Date None None PCP - General 02/21/22 documented as of this encounter
--- OUTSIDE RECORDS SUMMARY | 2024-02-20 12:16 | XMS_ITS | Encounter Summary ---
Author Organization [facility] [place] [address] Care Team Providers Care Blanching Machine Operator Name Role Phone None Primary Care Provider Unavailabl e Encounter Details Date Type Department Care Team (Late st Contact Info) Description 05/28/2022 Telephone [place] [phone] Winston Phillip Social History Tobacco Use Types [...] 05/28/2022 12:32 PM EST Lawanda Lopes Jonas [id number] Diagnosis/Indication: stent Please review patient chart to [...] your procedure. Who will likely be your escort car driver for the procedure? *Please Verify the [...] on filedocumented in this encounter Care Teams Blanching Machine Operator Relationship Specialty Start Date End Date None None PCP - General 02/21/22 documented as of this encounter
--- OUTSIDE RECORDS SUMMARY | 2024-02-20 12:16 | XMS_ITS | Encounter Summary ---
Author [facility] [place] [address] Care Team Providers Care Scanning Tech Name Role Phone None Primary Care Provider Unavailabl e Reason for Visit * Auth/Cert Specialty Diagnoses / Procedures Referred By Conner t Referred To Contact Diagnoses Injury of bile duct bile duct injury back and forth Procedures PRO ERCP,DIAGNOSTIC PRO UPPER GI ENDOSCOPY, REMOV F.B. PRO ANESTH, UGI ENDOSCOPY ERCP PRO ANESTH, COMBINED UPPER OR LOWER ENDOSCOPY ERCP Bijan Felipe MD [facility] [place] [address] [facility] Referral ID Status Reason Start Date Expiration Date Visits Re quested Visits Authorized [id number] 1 1 Encounter Details Date Type Department Care Team (Late st Contact Info) Description 02/21/2022 2:40 PM EST Ancillary Procedure [place] [phone] Social History Tobacco Use Types Packs/Day Years [...] Felipe MD IMG FILM LIBRARY ORD ERABLES [place], [place] documented in this encounter Visit Diagnoses Not on filedocumented in this encounter Care Teams Scanning Tech Relationship Specialty Start Date End Date None None PCP - General 02/21/22 documented as of this encounter
--- OUTSIDE RECORDS SUMMARY | 2024-02-20 12:16 | XMS_ITS | Encounter Summary ---
[place] [address] Care Team Providers Care Global Human Resources Director Name Role Phone Dayanna Peters MD Primary Care Provider Encounter Details Date Type Department Care Team (Latest Contact Info) Description 02/19/2018 12:53 PM EST - 02/19/2018 11:59 PM EST Hospital En[place] [address] Asthma, unspecified asthma severity, unspecified whether complicated, [...] Jamel Funes and Alejo. Paediatric electrocardiography. BMJ. 2002;324(5063):1382-5, however clinically correlate for prior history of congenital cardiac abnormalities, Kawasaki's disease or other disorders that may causecardiac ischemia in the patient's age range. No significant ST segment deviations were noted duringor after exercise. Discussed with Dr. Roxanna Gonzalez MD Pulmonary and Critical Care Medicine Fellow PGY 5 Pager [phone] documented in this encounter Miscellaneous Notes * [...] persistent documented in this encounter Care Teams Global Human Resources Director Relationship Specialty Start Date End Date Dayanna Peters MD [facility] [place] [address] PCP - General 03/06/10 02/20/22 documented as of this encounter
--- OUTSIDE RECORDS SUMMARY | 2024-02-20 12:16 | XMS_ITS | Encounter Summary ---
Author Organization [place] [address] Care Team Providers Care Dock Hand Name Role Phone None Primary Care Provider Unavailabl e Reason for Visit * Auth/Cert (Routine) Specialty Diagnoses / Procedures Referred By Controsana t Referred To Contact Diagnoses stent maintainence Procedures PRO ERCP,DIAGNOSTIC ERCP Bijan Felipe MD [facility] [place] [address] [facility] Referral ID Status Reason Start Date Expiration Date Visits Re quested Visits Authorized [id number] 1 1 Encounter Details Date Type Department Care Team (Late st Contact Info) Description 06/10/2022 3:45 PM EST - 06/10/2022 5:00 PM EST Surgery [place] [address] Bijan Felipe MD [facility] [place] [address] ERCP, W REMOVAL& EXCHANGE STENT, BILIARY/PANCREATIC DUCT [...] the day after the procedure, use an hycf-ein-qxjzwjo spray to numb your throat. Sucking on [...] occurs, please contact your Doctor. Please call [phone] before 8pm Mon-Fri with problems, questions or concerns. If you call after 8pm or on weekends, call the Hospital at [phone] and ask to speak to the Literature Teacher environmental restoration planner and the fabricating machine operator will contact that person for you. When should you call for help? Call [phone] anytime you think you may need emergency [...] Visit Summary and more online at [email or web address] If you would like to [...] cost to you. Content Version: 12.2 ?? 6722-5638 [email or web address]. Care instructions adapted under license by [facility]. If you have questions about a medical condition or this instruction, always ask your healthcare professional. [email or web address] disclaims any warranty or liability for your [...] spacing device ([employer]) Spacer by [facility].(Non-Drug; Combo Route) route. As directed. May substitute [...] Felipe MD - 06/10/2022 5:12 PM EST [facility] [place] Operative Note Patient Name: Lawanda Mcdaniel : [id number] MR#: [id number] Case Date: 06/10/2022 Surgeon: Surgeon(s) and Role: * Bijan Felipe MD - Primary Preoperative diagnosis: stent maintainence Postoperative diagnosis: * No post-op diagnosis entered * Procedure(s) (LRB): ERCP, W REMOVAL& EXCHANGE STENT, BILIARY/PANCREATIC DUCT (N/A) CHOLANGIOGRAM Anesthesia: General Full procedure note is documented under the Procedure section of [facility]. documented in this encounter Plan of [...] Or Pancreatic Duct Stent Removal & Exchange W/Dil&Wire(80368) 06/10/2022 4:56 PM EST stent maintainence ERCP Routine 06/10/2022 4:50 PM EST documented in this encounter Results * XR ERCP (06/10/2022 5:38 PM EST) Narrative [facility] - 06/10/2022 5:39 PM EST See PACS for result report. Bijan Felipe MD IMG FILM LIBRARY ORD ERABLES FRED Montanez * ERCP (06/10/2022 4:50 PM EST) ERCP [facility] Endoscopy Procedure Date: 06/10/2022 4:50 PM ? Patient Name: Lawanda Mcdaniel ? Date of : 2000 ? Age: 21 ? Order #: [id number] ? Instrument Name: [id number]- [id number] ? Procedure: ? ERCP Indications: ? Follow-up of bile leak, Stent change Providers: ? Bijan Felipe MD, Stephan Figueroa ? , VALDEMAR, Nova Guaman, ? Medical Office Coordinator Referring MD: ?Dayanna Peters MD, Andrade Mendenhall Medicines: ? General Anesthesia, Indomethacin ? 100 mg DE Complications: ? No immediate complications. Procedure: ? [...] A biliary stent was visible on the packaging sales consultant film ? adjacent to surgical clips. The [...] a single internal flap were placed ? eoqy-ab-ulsd into the common bile duct across the [...] dilated to 6 mm ? followed by kskd-tb-mitb 10 Fr ? stent placement across the [...] RN) documented in this encounter Care Teams Dock Hand Relationship Specialty Start Date End Date None None PCP - General 02/21/22 documented as of this encounter
--- OUTSIDE RECORDS SUMMARY | 2024-02-20 12:16 | XMS_ITS | Encounter Summary ---
Author Organization [facility] [place] [address] Care Team Providers Care Professor Of Fine Art Name Role Phone None Primary Care Provider Unavailabl e Reason for Visit * Auth/Cert Specialty Diagnoses / Procedures Referred By Conner t Referred To Contact Diagnoses Injury of bile duct bile duct injury back and forth Procedures PRO ERCP,DIAGNOSTIC PRO UPPER GI ENDOSCOPY, REMOV F.B. PRO ANESTH, UGI ENDOSCOPY ERCP PRO ANESTH, COMBINED UPPER OR LOWER ENDOSCOPY ERCP Bijan Felipe MD [facility] [place] [address] [facility] [[email or web address] Referral ID Status Reason Start Date Expiration Date Visits Re quested Visits Authorized [id number] 1 1 Encounter Details Date Type Department Care Team (Latest Contact Info) Description 02/21/2022 12:22 PM EST - 02/21/2022 3:34 PM [facility] Hospital Encounter [place] [address] Bijan Felipe MD [facility] [place] [address] Discharge Disposition: Other [facility] Term [facility] [...] intermittent asthma who was recently admitted to [facility] with acute cholecystitis s/p CCY c/b complete [...] PM EST Ercp, W/Removal Stone, Mono/Pancr Ducts (14431) 02/21/2022 1:30 PM EST bile duct injury back and forth Ercp Biliary Or Pancreatic Duct Stent Removal & Exchange W/Dil&Wire(14106) 02/21/2022 1:30 PM EST bile duct injury back and forth Ercp, Sphincterotomy (66104) 02/21/2022 1:30 PM EST bile duct injury back and forth ERCP Routine 02/21/2022 1:06 PM EST documented in this encounter Results * XR ERCP (02/21/2022 3:33 PM EST) Narrative [facility] - 02/21/2022 3:33 PM EST See PACS for result report. Bijan Felipe MD [facility] FILM LIBRARY ORD ERABLES Performing Organization Address City/State/[facility] Co de Phone Number [place], [place] * ERCP (02/21/2022 1:06 PM EST) ERCP [facility] Endoscopy Procedure Date: 02/21/2022 1:06 PM ? Patient Name: Lawanda Mcdaniel ? Date of : 2000 ? Age: 21 ? Order #: [id number] ? Instrument Name: [id number]- [id number] ? Procedure: ? ERCP Indications: ? Bile leak from main duct injury, ? Stent change Providers: ? Bijan Felipe MD, Oswaldo Quinonez ? Gigi Pruitt Michael ? Sylvia Maravilla Referring : ?Dayanna M. Patno, MD, Andrade Mendenhall, ? MD Medicines: ? Monitored Anesthesia Care, ? Indomethacin 100 mg MD Complications: ? No immediate complications. Procedure: ? [...] A biliary stent was visible on the high school librarian film in the ? RUQ. Surgical clips [...] Procedure Code(s): ? --- Professional --- ? 00989, Endoscopic retrograde ? cholangiopancreatography (ERCP); ? with [...] of ? biliary tract CPT copyright 2021 [employer]. All rights reserved. The codes documented in this report are preliminary and upon applied biology professor review may be revised to meet current [...] CRNA) documented in this encounter Care Teams Professor Of Fine Art Relationship Specialty Start Date End Date None None PCP - General 02/21/22 documented as of this encounter
--- OUTSIDE RECORDS SUMMARY | 2024-02-20 12:16 | XMS_ITS | Encounter Summary ---
[place] [address] Care Team Providers Care Nipple Machine Operator Name Role Phone None Primary Care Provider Unavailabl e Reason for Visit * Auth/Cert (Routine) Specialty Diagnoses / Procedures Referred By Conner t Referred To Contact Diagnoses stent maintainence Procedures PRO ERCP,DIAGNOSTIC ERCP Bijan Felipe MD [facility] [place] [address] [facility] Referral ID Status Reason Start Date Expiration Date Visits Re quested Visits Authorized [id number] 1 1 Encounter Details Date Type Department Care Team (Late st Contact Info) Description 06/10/2022 4:45 PM EST Ancillary [place] [address] Social History Tobacco Use Types Packs/Day Years [...] XR ERCP (06/10/2022 5:38 PM EST) Narrative [facility] - 06/10/2022 5:39 PM EST See PACS for result report. Bijan Felipe MD IMG FILM LIBRARY ORD ERABLES Performing Organization Address City/State/[facility] Co de Phone Number [place], [place] documented in this encounter Visit Diagnoses Not on filedocumented in this encounter Care Teams Nipple Machine Operator Relationship Specialty Start Date End Date None None PCP - General 02/21/22 documented as of this encounter
--- OUTSIDE RECORDS SUMMARY | 2024-02-20 12:16 | XMS_ITS | Encounter Summary ---
Author Organization [facility] [place] [address] Care Team Providers Care Wedding Planner Name Role Phone None Primary Care Provider Unavailabl e Reason for Visit * Auth/Cert Specialty Diagnoses / Procedures Referred By Conner t Referred To Contact Diagnoses Injury of bile duct bile duct injury back and forth Procedures PRO ERCP,DIAGNOSTIC PRO UPPER GI ENDOSCOPY, REMOV F.B. PRO ANESTH, UGI ENDOSCOPY ERCP PRO ANESTH, COMBINED UPPER OR LOWER ENDOSCOPY ERCP Bijan Felipe MD [facility] [place] [address] [facility] Referral ID Status Reason Start Date Expiration Date Visits Re quested Visits Authorized [id number] 1 1 Encounter Details Date Type Department Care Team (Late st Contact Info) Description 02/21/2022 1:15 PM EST - 02/21/2022 2:45 PM EST Surgery [place] [address] Bijan Felipe MD [facility] [place] [address] ERCP W/SPHINCTEROTOMY/PAPIL LOTOMY (WRVU 6.5) Social History [...] intermittent asthma who was recently admitted to [facility] with acute cholecystitis s/p CCY c/b complete [...] PM EST Ercp, W/Removal Stone, Mono/Pancr Ducts (01841) 02/21/2022 1:30 PM EST bile duct injury back and forth Ercp Biliary Or Pancreatic Duct Stent Removal & Exchange W/Dil&Wire(98996) 02/21/2022 1:30 PM EST bile duct injury back and forth Ercp, Sphincterotomy (11928) 02/21/2022 1:30 PM EST bile duct injury back and forth ERCP Routine 02/21/2022 1:06 PM EST documented in this encounter Results * XR ERCP (02/21/2022 3:33 PM EST) Narrative [facility] - 02/21/2022 3:33 PM EST See PACS for result report. Bijan Felipe MD [facility] FILM LIBRARY ORD ERABLES [place], [place] * ERCP (02/21/2022 1:06 PM EST) ERCP [facility] Endoscopy Procedure Date: 02/21/2022 1:06 PM ? Patient Name: Lawanda Mcdaniel ? Date of : 2000 ? Age: 21 ? Order #: [id number] ? Instrument Name: [id number]- [id number] ? Procedure: ? ERCP Indications: ? Bile leak from main duct injury, ? Stent change Providers: ? Bijan Felipe MD, Oswaldo Aly. ? Sonal, Devon Jay ? Sylvia Maravilla Referring MD: ?Dayanna Peters MD, Andrade Mendenhall, ? MD Medicines: ? Monitored Anesthesia Care, ? Indomethacin 100 mg ID Complications: ? No immediate complications. Procedure: ? [...] A biliary stent was visible on the label stamper film in the ? RUQ. Surgical clips [...] Procedure Code(s): ? --- Professional --- ? 97448, Endoscopic retrograde ? cholangiopancreatography (ERCP); ? with [...] of ? biliary tract CPT copyright 2021 [employer]. All rights reserved. The codes documented in this report are preliminary and upon salesperson automobiles review may be revised to meet current [...] CRNA) documented in this encounter Care Teams Wedding Planner Relationship Specialty Start Date End Date None None PCP - General 02/21/22 documented as of this encounter
--- OUTSIDE RECORDS SUMMARY | 2024-02-20 12:16 | XMS_ITS | Encounter Summary ---
Author Organization [facility] [place] [address] Care Team Providers Care Data Consultant Name Role Phone Dayanna Peters MD Primary Care Provider [phone] Encounter Details Date Type Department Care Team (Late st Contact Info) Description 06/20/2018 [place] [address] Kenton Orlando MD [facility] DR [place] [address] Social History Tobacco Use Types Packs/Day Years [...] on filedocumented in this encounter Care Teams Data Consultant Relationship Specialty Start Date End Date Dayanna Peters MD [facility] CHILD ADVOCACY & [place] [address] PCP - General 03/06/10 02/20/22 documented as of this encounter
--- OUTSIDE RECORDS SUMMARY | 2024-02-20 12:16 | XMS_ITS | Encounter Summary ---
Author Organization [facility] [place] [address] Care Team Providers Care Repair Department Manager Name Role Phone Dayanna Peters MD Primary Care Provider Encounter Details Date Type Department Care Team (Late st Contact Info) Description 02/18/2022 Ancillary Procedure Radiology Library at [facility] [place] [address] Bijan Felipe MD [facility] [place] [address] Social History Tobacco Use Types Packs/Day Years [...] is for storage only. Bijan Felipe MD IMG FILM LIBRARY ORD ERABLES [facility] [place], [place] documented in this encounter Visit Diagnoses Not on filedocumented in this encounter Care Teams Repair Department Manager Relationship Specialty Start Date End Date Dayanna Peters MD [facility] CHILD ADVOCACY & [place] [address] PCP - General 03/06/10 02/20/22 documented as of this encounter
--- OUTSIDE RECORDS SUMMARY | 2024-02-20 12:16 | XMS_ITS | Encounter Summary ---
Author Organization [facility] [place] [address] Care Team Providers Care Electron Beam Machine Welder Setter Name Role Phone Dayanna Peters MD Primary Care Provider [phone] Encounter Details Date Type Department Care Team (Late st Contact Info) Description 01/28/2018 [place] [id number] Kenton Orlando MD [facility] DR JEFF [place]AY[place] [address] Social History Tobacco Use Types Packs/Day Years [...] as well as skin contact with a market risk manager pod. Since event, avoiding nuts. Rxn [...] on filedocumented in this encounter Care Teams Electron Beam Machine Welder Setter Relationship Specialty Start Date End Date Dayanna Peters MD [facility] CHILD ADVOCACY & [place] [address] PCP - General 03/06/10 02/20/22 documented as of this encounter
--- OUTSIDE RECORDS SUMMARY | 2024-02-20 12:16 | XMS_ITS | Encounter Summary ---
Author Organization [facility] [place] [address] Care Team Providers Care Latcher Name Role Phone Dayanna Peters MD Primary Care Provider [phone] Reason for Visit * Consultation (Routine) - Closed Specialty Diagnoses / Procedures Referred By Conner olguin Referred To Contact Allergy Diagnoses ANAPHYLAXIS Casey Maloney MD [address] [place] [address] [place] [address] [facility] [address] [place] [id number] Referral ID Status Reason Start Date Expiration Date V isits Requested Visits Authorized [id number] Closed Consult, [facility] 10/30/2017 10/30/2018 1 1 Encounter Details Date Type Department Care Team (Latest Contact Info) Description 02/02/2018 9:00 AM EDT [place] [address] Kenton Orlando MD [facility] DR JEFF [place] [address] Anaphylaxis, initial encounter; Asthma, unspecified [...] 02/02/2018 8:4 6 AM EDT Growth Chart: [facility] (Girls, 2- 20 Years) documented in this [...] 1. Dust mite encasings, pillow and mattress ([employer]) 2. Wash bedding (linens, not dust mite [...] 4. Additional resources on indoor air quality: https://www.epa.gov/mold/cmx-zgmpld-nlc-olnwta-ivvy-tpndc-mold https://www.epa.gov/zbazqq-cgc-qkkyvxe-iaq http://leni.ma.gov/organization/divisions/air/pehb/ehs/iaqp/index.htm Pollens: Grass: Late Spring to Summer; Trees: Early Spring; Weeds: Mid Summer; Ragweed: Late Summer: [place] Mold: Late Summer to Fall 1. Nightly [...] Orlando MD - 02/02/2018 9:00 AM EDT [facility] Section of Allergy, Asthma, and Immunology Primary [...] (lactose intolerant), Egg, Wheat, Beef, Peanut, Chicken, [place], Pea, Potato, Rice,Carrot, Pork, Shrimp, Crab, Fish [...] %ile based on CDC (Girls, 2-20 Years) cyjxac-pnt-fqp data based on Weight recorded on 02/02/2018. 32 %ile based on CDC (Girls, 2-20 Years) Ecgggdg-oxd-gjl data based on Stature recorded on 02/02/2018. [...] as well as skin contact with a adoption agent pod. Since event, avoiding nuts. Rxn occurred [...] Tree pollen: Tree mix (4,5), Birch (0,3), [place] (0,3) Parkin pollen: Parkin mix (3,3), Ragweed (0,3) Molds: Aspergillus (3,3), Alternaria (2,3), Nuts: Cashew (0,3), Hazelnut (0,5), Peanut (0,1), Pistachio (0,2), [place] (0,3) Other: Latex (0,5), Soy (3,10) Controls: [...] high in Can f 3; AP Dog ([place]-Lin) dander is high in Canf 1 but low in Can f 3. Mixes: 7- grass mix = [place] Blue, Orchard, Ret Top, Alvin, Sweet Vernal, [place] Fescue, Perennial Hubbard; 11-Tree mix = Ben[place] Beech, Beninese/Easatern [place], Beninese Elm, Black [place], Black [place], Eastern [place], [place], Red/River Birch, Shagbark Sarpy, Sugar/Hard Maple, White [place]; National weed mix [...] 12:20 PM EDT) Soybean, IgE <0.35 kU/L [facility] Comment: Reference Ranges <0.35 kU/L [...] Lab Kenton Orlando MD IMMUNOLOGY ORDERABLE S [facility] [place] [address] * Cashew IgE (02/02/2018 12:20 PM EDT) Cashew, IgE <0.35 kU/L [facility] Comment: Reference Ranges <0.35 kU/L Class [...] MD IMMUNOLOGY ORDERABLE S Performing Organization Address City/[facility]/ZIP Co de Phone Number [facility] [place] [address] * Tryptase (02/02/2018 12:20 PM EDT) Tryptase 2.7 <=11.1 ng/mL [facility] Comment: Total tryptase concentrations that are persistently greater than 20 ng/mL may be consistent with systemic mastocytosis. Blood specimen (specimen) 02/02/2018 12:20 PM EDT 02/03/2018 7:19 AM EDT Narrative Resulting Agency Comment Spec In Lab Kenton Orlando MD CHEMISTRY ORDERABLES Performing Organization Address [facility] Co de Phone Number [facility] [place] [address] * SCAN DOC: ALLERGY (02/02/2018 12:00 AM [...] unspecified documented in this encounter Care Teams Latcher Relationship Specialty Start Date End Date Dayanna Peters MD [facility] DR CHILD ADVOCACY & [place] [address] PCP - General 03/06/10 02/20/22 documented as of this encounter
--- OUTSIDE RECORDS SUMMARY | 2024-02-20 12:16 | XMS_ITS | Encounter Summary ---
Author Organization [facility] [place] [address] Care Team Providers Care Spout Tender Name Role Phone Dayanna Peters MD Primary Care Provider [phone] Encounter Details Date Type Department Care Team (Late st Contact Info) Description 02/20/2022 Telephone [place] [phone] Ruma Urbina MD [facility] DR [place] [address] Social History Tobacco Use Types Packs/Day Years [...] Date: 02/20/2022 Time: 11:52 AM Referring Location: [facility] Referring Provider: Andrade Mendenhall MD 21 yo female who presented 2 days ago to [facility] with acute cholecystitis. She underwent cholecystectomy [...] have and to keep her NPO at [place]. She is not on any anticoagulation. This [...] on filedocumented in this encounter Care Teams Spout Tender Relationship Specialty Start Date End Date Dayanna Peters MD [facility] CHILD ADVOCACY & [place] [address] PCP - General 03/06/10 02/20/22 documented as of this encounter
--- OUTSIDE RECORDS SUMMARY | 2024-02-20 12:16 | XMS_ITS | Encounter Summary ---
Author Organization [facility] [place] [address] Care Team Providers Care Softball Winder Name Role Phone None Primary Care Provider Unavailabl e Reason for Visit * Auth/Cert (Routine) Specialty Diagnoses / Procedures Referred By Controsana t Referred To Contact Diagnoses stent maintainence Procedures PRO ERCP,DIAGNOSTIC ERCP Bijan Felipe MD [facility] [place] [address] [facility] Referral ID Status Reason Start Date Expiration Date Visits Re quested Visits Authorized [id number] 1 1 Encounter Details Date Type Department Care Team (Late st Contact Info) Description 06/10/2022 4:55 PM EST Anesthesia [place] [address] Chelsie Plaza MD [facility] [place] [address] Odilia Jimenez MD [facility] [place] [address] Anesthesia Record Procedure Summary Procedure Name Responsible [...] hospital); median cubital vein (antecubital fossa), right; qrdy-aox-pueysq catheter system; 18 gauge; (outside hospital); 06/10/22; 184702/18/22 0900 by Nehal Abbott RN 06/10/221847 by Kimmie Powers, VALDEMAR (RETIRED) Peripheral IV Line - Single Lumen 02/20/22 (placed at outside hospital); 09 (placed at outside hospital); cephalic vein (lateral side of arm), left; fucw-hte-tsdjgf catheter system; Anatomical Landmarks; 22 gauge; 06/10/22; 184702/20/22 0900 by Nehal Abbott RN 06/10/221847 by Kimmie Powers, VALDEMAR (RETIRED) Peripheral IV Line - Single Lumen 06/10/22; 1508; median cubital vein (antecubital fossa), right; sjiq-xgs-wnesug catheter system; 22 gauge; arianna granger rn; [...] Procedure Summary Date: 06/10/22 Room / Location: [facility] 2 / [facility] Anesthesia Start: 1654 Anesthesia Stop: Procedures: ERCP, W REMOVAL& EXCHANGE STENT, BILIARY/PANCREATIC DUCT (Trunk) CHOLANGIOGRAM Diagnosis: (stent maintainence) Surgeons: Bijan Felipe MD Responsible Provider: Chelsie Plaza MD Anesthesia Type: general ASA Status: 1 All Anesthesia Providers: Anesthesiologist: Chelsie Plaza MD GEOLOGICAL TECHNICAL OFFICER: Shravan Gupta CRNA Vitals Value Taken Time BP 114/80 06/10/22 1810 Temp Pulse Resp 18 06/10/22 1810 SpO2 100 % 06/10/22 1817 Pain Level 0 06/10/22 1810 Vitals shown include unvalidated device data. Patient Location: PACU/[facility] Level of Consciousness: Awake and Alert [...] DUCT performed by Bijan Felipe MD at [facility] ENDOSCOPY ??? PRO ERCP, SPHINCTEROTOMY N/A 02/21/2022 ERCP W/SPHINCTEROTOMY/PAPILLOTOMY performed by Bijan Felipe MD at [facility] END[facility]COPY ??? PRO ERCP, W/REMOVAL STONE, NICKY/PANCR DUCTS 02/21/2022 ERCP W/REMOVAL CALCULI/DEBRIS FROM BILARY/PANCREATIC DUCT(S) performed by Bijan Felipe MD at [facility] Social History Tobacco Use ??? [...] risks discussed with patient. Plan discussed with GEOLOGICAL TECHNICAL OFFICER. Anesthesia Screening documented in this encounter Plan [...] mg documented in this encounter Care Teams Softball Winder Relationship Specialty Start Date End Date None None PCP - General 02/21/22 documented as of this encounter
[2024-02-20 14:55] LABS: Abs Immature Grans 0.02 10^3/uL (0.0-0.06); Absolute Basophil Count 0.06 10^3/uL (0.0-0.2); Absolute Eosinophil Count 0.17 10^3/uL (0.0-0.7); Absolute Lymphocyte Count 1.88 10^3/uL (1.2-3.4); Absolute Monocyte Count 0.37 10^3/uL (0.1-0.8); Absolute Neutrophil Count 4.97 10^3/uL (1.2-6.7); Basophils % 0.8 %; Eosinophils % 2.3 %; HCT 43.6 % (36.0-46.0); HGB 14.7 g/dL (11.2-15.7); Immature Grans % 0.3 %; Lymphocytes % 25.2 %; MCH 31.1 pg (27.0-33.0); MCHC 33.7 % (32.0-36.0); MCV 92 fL (80-95); MPV 10.4 fL (8.0-11.0); Neutrophils % 66.4 %; Platelet Count 231 10^3/uL (130-400); RBC 4.73 10^6/uL (3.93-5.22); RDW-SD 40.8 fL; WBC 7.47 10^3/uL (4.4-10.8)
[2024-02-20 15:14] LABS: Bacteria Moderate HPF (Negative); C & S Indicated? C&S Done As Ordered; Casts Negative LPF (Negative); Crystals Negative HPF (Negative); Epithelial Cells Few HPF (Negative); Mucus Negative (Negative); RBC 0-2 HPF (0-2); WBC 0-2 HPF (0-5)
[2024-02-20 15:21] LABS: ALT 15 U/L (14-59); AST 13 U/L (15-37); Albumin 4.1 g/dL (3.4-5.0); Alkaline Phosphatase 73 U/L (46-116); Anion Gap 10.1 mmol/L (3-11); BUN 9 mg/dL (7-18); Bilirubin, Total 1.12 mg/dL (0.2-1.0); CO2 28.9 mmol/L (21.0-32.0); CREATININE 0.9 mg/dL (0.55-1.02); Chloride 104 mmol/L (98-107); Estimated GFR 92.12 (mL/min/1.73m2); Glucose 94 mg/dL (74-106); Lipase 35 U/L (16-77); Potassium 4.5 mmol/L (3.5-5.1); Sodium 143 mmol/L (136-145); Total Protein 7.2 g/dL (6.4-8.2)
[2024-02-20 15:25] LABS: Calcium 9.9 mg/dL (8.5-10.1)
== END 2024-02-20 12:11 | disposition home or self-care (01) ==
LOC: LBN 12:10
PROVIDERS: PCP Student in an Organized Health Care Education/Training Program; Visit Provider Physician Assistant Medical
DX: R11.2 Nausea with vomiting, unspecified (principal); N89.8 Other specified noninflammatory disorders of vagina
CPT/HCPCS: 80053; 83690; 81015; 85025; 87086; 87480; 87510; 87660